=== PATIENT | female | born 1955 | race Caucasian/White ===

== ENCOUNTER 2024-08-31 22:16 | Emergency (ER) | payer MEDICARE, SELFPAY ==
[2024-08-31 22:25] VITALS: BP 189/139; PULSE 107; TEMP 36.6; BMI 26.6
--- NOTE | 2024-08-31 22:42 | ED.EXTPRO1 ---
HPI - Extremity Problem General Chief complaint: Extremity Problem, Nontraumatic Stated complaint: HIP PAIN/NUMBNESS Time Seen by Provider: 08/31/24 22:38 Source: patient Mode of arrival: Wheelchair Limitations: no limitations History of Present Illness HPI Narrative: states she was standing tonight at the parade for over an hour and now has pain of her right hip. pain extends down to her foot and her foot is numb. No weakness of her leg. Denies back pain. No fever or injury Related Data Allergies Allergy/AdvReac Type Severity Reaction Status Date / Time No Known Drug Allergies Allergy Verified 08/31/24 22:25 Review of Systems ROS Status of ROS 10 or more systems reviewed and unremarkable except as noted in history and below PFSH PFSH Social History Little interest or pleasure in doing things: not at all Feeling down, depressed, or hopeless: not at all Exam Constitutional Vital Signs, click to edit/add: Last Vital Signs Temp 97.8 F 08/31/24 22:25 Pulse 107 H 08/31/24 22:25 Resp 18 08/31/24 22:25 BP 148/96 H 08/31/24 22:44 O2 Del Method Room Air 08/31/24 22:25 Common normals: no apparent distress, average body habitus, oriented x3, no limitations, healthy appearing, alert and well nourished [facility] Common normals: normocephalic and head/scalp atraumatic Eye Common normals: PERRL, EOMs intact bilaterally and conjunctivae normal Respiratory Common normals: normal respiratory effort, no retractions, no use of accessory muscles and clear to auscultation bilaterally Cardio Common normals: regular rate, regular rhythm, S1 normal heart sound and S2 normal heart sound Extremity Common normals: normal to inspection and full ROM Neuro Common normals: oriented x3, CN's II-XII intact bilaterally and moves all extremities Psych Appearance: grossly normal Course Vital Signs Vital signs: Vital Signs Temperature 97.8 F 08/31/24 22:25 Pulse Rate 107 H 08/31/24 22:25 Respiratory Rate 18 08/31/24 22:25 Blood Pressure 189/139 H 08/31/24 22:25 Oxygen Delivery Method Room Air 08/31/24 22:25 Temperature 97.8 F 08/31/24 22:25 Pulse Rate 107 H 08/31/24 22:25 Respiratory Rate 18 08/31/24 22:25 Blood Pressure 148/96 H 08/31/24 22:44 Oxygen Delivery Method Room Air 08/31/24 22:25 MDM - Extremity (Nontraumatic) MDM Narrative Medical decision making narrative: patient presents complaining of pain radiating from her hip down her right leg and numbness of the foot. No weakness. States started after standing at a parade for over an hour. Exam neg. No tenderness. basic labs with mild anemia, mild renal insufficiency and mildly elevated RBS. Patient treated with solumedrol and magnesium and is feeling better. Xray of the hip with mild DJD patient discharged home with prednisone prescription and working diagnosis of sciatica Lab Data Labs: Lab Results 08/31/24 Range/Units 22:55 WBC 10.6 (4.0-11.0) 10^3/uL RBC 5.29 (4.20-5.40) 10^6/uL Hgb 10.4 L (12.0-16.0) g/dL Hct 33.4 L (36.0-48.0) % MCV 63.1 L (81.0-99.0) fL MCH 19.7 L (26.7-34.0) pg MCHC 31.1 (29.9-35.2) g/dL RDW 16.1 H (11.0-15.0) % Plt Count 319 (150-450) 10^3/uL MPV 10.1 (9.5-13.5) fL Neut % (Auto) 78.3 H (43.0-75.0) % Lymph % (Auto) 15.6 L (20.5-60.0) % [place] % (Auto) 4.9 (1.7-12.0) % Eos % (Auto) 0.2 L (0.9-7.0) % Baso % (Auto) 0.5 (0.2-2.0) % Neut # (Auto) 8.3 H (1.4-6.5) 10^3/uL Lymph # (Auto) 1.7 (1.2-3.8) 10^3/uL [place] # (Auto) 0.5 (0.3-0.8) 10^3/uL Eos # (Auto) 0.0 (0.0-0.7) 10^3/uL Baso # (Auto) 0.1 (0.0-0.1) 10^3/uL Abs Immat Gran (auto) 0.05 H (0.00-0.03) 10^3/uL Imm/Tot Granulo (auto) 0.5 (0.0-0.5) % Sodium 136 (136-145) mmol/L Potassium 3.9 (3.5-5.1) mmol/L Chloride 102 (98-107) mmol/L Carbon Dioxide 19.1 L (21.0-32.0) mmol/L Anion Gap 18.8 BUN 18.0 (7.0-18.0) mg/dL Creatinine 1.43 H (0.55-1.02) mg/dL Est GFR ( Amer) 44 L (>=60 mL/min/1.73m^2) Est GFR (Non-Af Amer) 37 L (>=60 mL/min/1.73m^2) BUN/Creatinine Ratio 12.6 Glucose 133 H (74-106) mg/dL Calcium 9.0 (8.5-10.1) mg/dL Discharge Plan Discharge Chief Complaint: Extremity Problem, Nontraumatic Clinical Impression: Right sciatic nerve pain Patient Disposition: Home, Self-Care Print Language: Urdu Instructions: Sciatica (ED) Additional Instructions: follow up with Dr Bowman next week for recheck Referrals: Janes Bowman MD [Primary Care Provider] - 1 week
[2024-08-31 22:44] VITALS: BP 148/96
--- NOTE | 2024-08-31 22:44 | XR_ITS ---
The [address] [address] Patient Name: BHAVYA COCHRAN MRN: [id number] date: 1955 Sex: F Assigned Patient Location: ER Current Patient Location: ER Accession/Order Number: [id number] Exam Date: 08/31/2024 22:55 Report Date: 09/01/2024 02:03 At the request of: ANNE-MARIE CORDERO Procedure: XR hip RT 2V w/ pelvis XR hip RT 2V w/ pelvis: HISTORY: right hip pain right hip pain COMPARISON: None available. TECHNIQUE: 3 right hip/bony pelvis views are submitted. FINDINGS: BONES/JOINT SPACES: There is no acute fracture or dislocation. Mild degenerative osteoarthritis is present in the hip joints. The contour of each femoral head is well-maintained. Pelvic ring structures are preserved. SOFT TISSUES: The soft tissues are unremarkable. XR/XR hip RT 2V w/ pelvis IMPRESSION: Mild degenerative osteoarthritis in both hip joints. Unremarkable plain film examination otherwise. Electronically authenticated by: CODIE LOPEZ Date: 09/01/2024 02:03
[2024-08-31 23:02] LABS: Basophils Absolute Auto 0.1 10^3/uL (0.0-0.1); Basophils Percent Auto 0.5 % (0.2-2.0); Eosinophils Percent Auto 0.2 % (0.9-7.0); Hematocrit 33.4 % (36.0-48.0); Hemoglobin 10.4 g/dL (12.0-16.0); Immature Granulocytes Abs Auto 0.05 10^3/uL (0.00-0.03); Immature Granulocytes Pct Auto 0.5 % (0.0-0.5); Lymphocytes Absolute Auto 1.7 10^3/uL (1.2-3.8); Lymphocytes Percent Auto 15.6 % (20.5-60.0); Mean Corpuscular HGB Conc 31.1 g/dL (29.9-35.2); Mean Corpuscular Hemoglobin 19.7 pg (26.7-34.0); Mean Corpuscular Volume 63.1 fL (81.0-99.0); Mean Platelet Volume 10.1 fL (9.5-13.5); Monocytes Absolute Auto 0.5 10^3/uL (0.3-0.8); Monocytes Percent Auto 4.9 % (1.7-12.0); Neutrophils Absolute Auto 8.3 10^3/uL (1.4-6.5); Neutrophils Percent Auto 78.3 % (43.0-75.0); Platelet Count 319 10^3/uL (150-450); Red Cell Distribution Width 16.1 % (11.0-15.0); White Blood Count 10.6 10^3/uL (4.0-11.0)
[2024-08-31 23:08] LABS: Anion Gap 18.8; BUN Creatinine Ratio 12.6; Carbon Dioxide 19.1 mmol/L (21.0-32.0); Chloride 102 mmol/L (98-107); Estimated GFR (African America 44 (>=60 mL/min/1.73m^2); Estimated GFR (Non-African Ame 37 (>=60 mL/min/1.73m^2); Glucose 133 mg/dL (74-106); Potassium 3.9 mmol/L (3.5-5.1); Sodium 136 mmol/L (136-145)
[2024-08-31] MEDS: METHYLPREDNISOLONE SOD SUCC PF 125 MG/2 ML VIAL IVP (23:11)
[2024-08-31] MEDS: MAGNESIUM SULFATE IN WATER 2 GM/50 ML PREMIX IV (23:11)
[2024-08-31 23:16] LABS: Red Blood Count 5.29 10^6/uL (4.20-5.40)
[2024-09-01 02:26] VITALS: BP 139/96; PULSE 90; O2SAT 97
== END 2024-09-01 02:28 | disposition home or self-care (01) ==
PROVIDERS: Emergency Provider Internal Medicine; PCP Family Medicine
DX: M54.31 Sciatica, right side (principal); M16.0 Bilateral primary osteoarthritis of hip
CPT/HCPCS: 36415; 73502; 80048; 85025; 96365; 96375; 99284; J2919; J3475

== ENCOUNTER 2024-10-07 17:15 | Outpatient (OUT) | payer MEDICARE, SELFPAY ==
--- OUTSIDE RECORDS SUMMARY | 2024-10-07 17:19 | XMS_ITS | CCD ---
Author Organization [facility] Care Team Providers Care Social Work Supervisor Name Role Phone PHYSICIAN, DEFAULT Unavailable Unavailable PHYSICIAN, DEFAULT Unavailable Unavailable Evonne Seo Unavailable TED CASTREJON Admitting Unavailable TED CASTREJON Attending Unavailable MARTI, DR HCEUNG Primary Care Unavailable TED CASTREJON Consulting Unavailable MARTI, DR CHEUNG Admitting Unavailable MARTI, DR CHEUNG Attending Unavailable DR SKYE BOWMAN Primary Care Unavailable DR SKYE BOWMAN Consulting Unavailable Skye Bowman MD Primary Care Provider [phone] Medications Current Medications Medication Drug Class(es) Dates Sig (Normalized) Sig (Original) cilostazol 100 mg oral tablet (3 sources) Phosphodiesterase 3 Inhibitor Start: 07-08-2024 take 100 mg by mouth once Cilostazol Active 100 MG PO Once July 08, 2024 12:00am Start: 11-04-2023 take 1 tablet by jose twice daily cilostazoL (PLETAL) 100 mg tablet Indications: PVD (peripheral vascular disease) ([facility]) , Claudication ([facility]) , Bilateral carotid bruits take 1 tablet by mouth twice a day 180 tablet 1 11/04/2023 Active Start: 04-25-2023 End: 11-04-2023 take 1 tablet by mouth twice daily cilostazoL (PLETAL) 100 mg tablet Indications: PVD (peripheral vascular disease) (CMS-HCC) , Claudication (CMS-HCC) , Bilateral carotid bruits take 1 tablet by mouth twice a day 180 tablet 1 04/25/2023 11/04/2023 Discontinued cloNIDine hydrochloride 0.1 mg oral tablet (1 source) Central alpha-2 Adrenergic Agonist Start: 07-08-2024 take 0.1 mg by mouth once daily Clonidine Hcl Active 0.1 MG PO Daily July 08, 2024 12:00am lisinopril 10 mg oral tablet (1 source) Angiotensin Converting Enzyme Inhibitor Start: 07-08-2024 take 10 mg by mouth once daily Lisinopril Active 10 MG PO Daily July 08, 2024 12:00am predniSONE 50 mg oral tablet (1 source) Start: 07-08-2024 take 50 mg by mouth once daily Prednisone Active 50 MG PO Daily 5 5 July 08, 2024 12:00am Problems Active Problems Problem Classification Problem Date Documented Da te Episodic/Chronic Allergic reactions (1 source) Unspecified contact dermatitis, unspecified cause; Translations: [Contact dermatitis and other eczema, unspecified cause] 07-08-2024 Episodic Deficiency and other anemia (1 source) Heterozygous thalassemia; 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-08-2024 Chronic Essential hypertension (1 source) Hypertensive disorder; Translations: [Essential (primary) hypertension] 07-08-2024 Chronic Other circulatory disease (1 source) Carotid bruit; Translations: [Other specified symptoms and signs involving the circulatory and respiratory systems] 11-04-2023 Episodic Other connective tissue disease (4 sources) Pain in right lower leg; Translations: [PAIN IN RIGHT LOWER LEG] Onset: 06-27-2022 Episodic Other connective tissue disease (1 source) Pain in left lower leg; Translations: [PAIN IN LEFT LOWER LEG] Onset: 06-29-2022 Episodic Peripheral and visceral atherosclerosis (2 sources) Peripheral vascular disease; Translations: [Peripheral vascular disease, unspecified] 11-04-2023 Chronic Past or Other Problems Problem Classification Problem Date Documented Da te Episodic/Chronic Immunizations and screening for infectious disease (1 source) Contact with and (suspected) exposure to other viral communicable diseases Onset: 09-07-2021 Resolved: 09-07-2021 Episodic Viral infection (1 source) COVID-19 Onset: 09-07-2021 Resolved: 09-07-2021 Results Test Name Value Interpretation Reference Range Facil ity INSULINon 07-16-2022 Insulin 14.3 uIU/mL Normal 2.6-24.9 [facility] Comment on above: Performed By: #### I NSULIN #### [facility] [address] [place] [address] Dr. Lemuel Serrato CBC AUTO DIFFon 07-15-2022 BASO # 0.0 103/ul Normal 0.0-0.1 [facility] Comment on above: Performed By: #### C BC #### [facility] [address] [address] [address] Lemuel Serrato Basophils/100 WBC (Bld) 0.4 % Normal 0.2-2.0 [facility] Comment on above: Performed By: #### C BC #### [facility] [address] [address] [address] Lemuel Serrato EO # 0.2 103/ul Normal 0.0-0.7 [facility] Comment on above: Performed By: #### C BC #### [facility] [address] [address] [address] Lemuel Serrato Eosinophils/100 WBC (Bld) 2.7 % Normal 0.9-7.0 [facility] Comment on above: Performed By: #### C BC #### [facility] [address] [place] [address] Dr. Lemuel Serrato Erythrocyte distribution width (RBC) [Ratio] 15.9 % Critically high 11.0-15.0 [facility] Comment on above: Performed By: #### C BC #### [facility] [address] [place] [address] Dr. Lemuel Serrato Hematocrit (Bld) [Volume fraction] 30.5 % Critically low 36.0-48.0 [facility] Comment on above: Performed By: #### C BC #### [facility] [address] [place] [address] Dr. Lemuel Serrato Hemoglobin (Bld) [Mass/Vol] 9.0 g/dL Critically low 12.0-16.0 [facility] Comment on above: Performed By: #### C BC #### [facility] [address] [place] [address] Dr. Lemuel Serrato IG # 0.03 10e3/ul Normal 0.00-0.03 [facility] Comment on above: Performed By: #### C BC #### [facility] [address] [address] [address] Lemuel Serrato IG % 0.4 % Normal 0.0-0.5 [facility] Comment on above: Performed By: #### C BC #### [facility] [address] [address] [address] Lemuel Serrato LYMPH # 3.1 103/ul Normal 1.2-3.8 [facility] Comment on above: Performed By: #### C BC #### [facility] [address] [place] [address] Dr. Lemuel Serrato Lymphocytes/100 WBC (Bld) 41.8 % Normal 20.5-60.0 [facility] Comment on above: Performed By: #### C BC #### [facility] [address] [place] [address] Dr. Lemuel Serrato MANUAL DIFF REQ NO Normal [facility] Comment on above: Performed By: #### C BC #### [facility] [address] [place] [address] Dr. Lemuel Serrato MCH (RBC) [Entitic mass] 18.9 pg Critically low 26.7-34.0 [facility] Comment on above: Performed By: #### C BC #### [facility] [address] [place] [address] Dr. Lemuel Serrato MCHC (RBC) [Mass/Vol] 29.5 g/dL Critically low 29.9-35.2 [facility] Comment on above: Performed By: #### C BC #### [facility] [address] [place] [address] Dr. Lemuel Serrato MCV (RBC) [Entitic vol] 64.2 fL Critically low 81.0-99.0 [facility] Comment on above: Performed By: #### C BC #### [facility] [address] [place] [address] Dr. Lemuel Serrato MONO # 0.7 103/ul Normal 0.3-0.8 [facility] Comment on above: Performed By: #### C BC #### [facility] [address] [place] [address] Dr. Lemuel Serrato Monocytes/100 WBC (Bld) 8.8 % Normal 1.7-12.0 [facility] Comment on above: Performed By: #### C BC #### [facility] [address] [place] [address] Dr. Lemuel Serrato NEUT # 3.4 103/ul Normal 1.4-6.5 [facility] Comment on above: Performed By: #### C BC #### [facility] [address] [address] [address] Lemuel Serrato Neutrophils/100 WBC (Bld) 45.9 % Normal 43.0-75.0 [facility] Comment on above: Performed By: #### C BC #### [facility] [address] [place] [address] Dr. Lemuel Serrato Platelet mean volume (Bld) [Entitic vol] 9.8 fL Normal 9.5-13.5 [facility] Comment on above: Performed By: #### C BC #### [facility] [address] [place] [address] Dr. Lemuel Serrato PLT 263 103/ul Normal 150-450 [facility] Comment on above: Performed By: #### C BC #### [facility] [address] [place] [address] Dr. Lemuel Serrato RBC 4.75 106/ul Normal 4.20-5.40 [facility] Comment on above: Result Comment: SLIG HT MICROCYTOSIS 1+ POIKILOCYTOSIS 1+ OVALOCYTE SLIGHT ACANTHOCYTE Performed By: #### C BC #### [facility] [address] [place] [address] Dr. Lemuel Serrato WBC 7.4 103/ul Normal 4.0-11.0 [facility] Comment on above: Performed By: #### C BC #### [facility] [address] [place] [address] Dr. Lemuel Serrato FREE THYROXINE INDEX T7on FTI 2.15 Normal 1.30-4.50 [facility] Comment on above: Performed By: #### T 7, LIPID, TSH, CMP #### [facility] [address] [place] [address] Dr. Lemuel Serrato T3U 33.0 % Normal 30.0-39.0 [facility] Comment on above: Performed By: #### T 7, LIPID, TSH, CMP #### [facility] [address] [address] [address] Lemuel Serrato T4 [Mass/Vol] 6.50 ug/dL Normal 4.80-13.[address] [facility] Comment on above: Performed By: #### T 7, LIPID, TSH, CMP #### [facility] [address] [address] [address] Lemuel Serrato GLYCOHEMOGLOBIN A1Con 2021 ADA RECOMMENDATION SEE BELOW Normal [facility] Comment on above: Result Comment: ADA RECOMMENDED LIMIT 4.0 - 6.0 ADA THERAPEUTIC TARGET < 7.0 ACTION SUGGESTED > 7.0 Performed By: #### A 1C #### [facility] [address] [place] [address] Dr. Lemuel Serrato Glucose [Mass/Vol] 137 mg/dL Normal [facility] Comment on above: Performed By: #### A 1C #### [facility] [address] [address] [address] Lemuel Serrato HbA1c (Bld) [Mass fraction] 6.4 % Critically high 4.5-6.2 [facility] Comment on above: Performed By: #### A 1C #### [facility] [address] [place] [address] Dr. Lemuel Serrato IRONon 07-15-2022 Iron [Mass/Vol] 70.0 ug/dL Normal 50.0-170.0 [facility] Comment on above: Performed By: #### I MARAL #### [facility] [address] [address] [address] Lemuel Serrato LIPID PROFILEon 07-15-2022 CHOL-HDL RATIO NORM SEE BELOW Normal [facility] Comment on above: Result Comment: 3.3 - 4.4 LOW RISK 4.4 - 7.1 AVERAGE RISK 7.1 - 11.0 MODERATE RISK >11.0 HIGH RISK Performed By: #### T 7, LIPID, TSH, CMP #### [facility] [address] [place] [address] Dr. Lemuel Serrato Cholesterol [Mass/Vol] 152 mg/dL Normal <=200 [facility] Comment on above: Performed By: #### T 7, LIPID, TSH, CMP #### [facility] [address] [address] [address] Lemuel Serrato Cholesterol in HDL [Mass/Vol] 32 mg/dL Critically low 40-60 [facility] Comment on above: Performed By: #### T 7, LIPID, TSH, CMP #### [facility] [address] [address] [address] Lemuel Serrato Cholesterol in LDL [Mass/Vol] 96.8 mg/dL Normal [facility] Comment on above: Performed By: #### T 7, LIPID, TSH, CMP #### [facility] [address] [address] [address] Lmeuel Serrato Cholesterol.total/Cho lesterol in HDL [Mass ratio] 4.8 {ratio} Normal [facility] Comment on above: Performed By: #### T 7, LIPID, TSH, CMP #### [facility] [address] [address] [address] Lemuel Serrato HDL NORMAL > or = 60 mg/dl - LOW CARDIOVASCULAR RISK <40 mg/dl - HIGH CARDIOVASCULAR RISK Normal [facility] Comment on above: Performed By: #### T 7, LIPID, TSH, CMP #### [facility] [address] [address] [address] Lemuel Serrato LDL CALC NORMAL SEE BELOW Normal [facility] Comment on above: Result Comment: <100 mg/dl OPTIMAL 100 - 129 mg/dl NEAR OR ABOVE OPTIMAL 130 - 159 mg/dl BORDERLINE HIGH 160 - 189 mg/dl HIGH >190 mg/dl VERY HIGH Performed By: #### T 7, LIPID, TSH, CMP #### [facility] [address] [address] [address] Lemuel Serrato Triglyceride [Mass/Vol] 116 mg/dL Normal <=150 [facility] Comment on above: Performed By: #### T 7, LIPID, TSH, CMP #### [facility] [address] [address] [address] Lemuel Serrato VLDL CALC 23.2 mg/dL Normal [facility] Comment on above: Performed By: #### T 7, LIPID, TSH, CMP #### [facility] [address] [place] [address] Dr. Lemuel Serrato PROF 14(COMP METB)on 022 Albumin [Mass/Vol] 3.5 g/dL Normal 3.4-5.0 [facility] Comment on above: Performed By: #### T 7, LIPID, TSH, CMP #### [facility] [address] [place] [address] Dr. Lemuel Serrato Albumin/Globulin [Mass ratio] 0.9 {ratio} Normal [facility] Comment on above: Performed By: #### T 7, LIPID, TSH, CMP #### [facility] [address] [place] [address] Dr. Lemuel Serrato ALP [Catalytic activity/Vol] 91 U/L Normal 46-116 [facility] Comment on above: Performed By: #### T 7, LIPID, TSH, CMP #### [facility] [address] [place] [address] Dr. Lemuel Serrato ALT [Catalytic activity/Vol] 21 U/L Normal 14-59 [facility] Comment on above: Performed By: #### T 7, LIPID, TSH, CMP #### [facility] [address] [place] [address] Dr. Lemuel Serrato Anion gap [Moles/Vol] 10.1 mmol/L Normal [facility] Comment on above: Performed By: #### T 7, LIPID, TSH, CMP #### [facility] [address] [place] [address] Dr. Lemuel Serrato AST [Catalytic activity/Vol] 10 U/L Critically low 15-37 [facility] Comment on above: Performed By: #### T 7, LIPID, TSH, CMP #### [facility] [address] [place] [address] Dr. Lemuel Serrato Bilirubin [Mass/Vol] 0.3 mg/dL Normal 0.2-1.0 [facility] Comment on above: Performed By: #### T 7, LIPID, TSH, CMP #### [facility] [address] [address] [address] Lemuel Serrato Calcium [Mass/Vol] 8.6 mg/dL Normal 8.5-10.1 [facility] Comment on above: Performed By: #### T 7, LIPID, TSH, CMP #### [facility] [address] [place] [address] Dr. Lemuel Serrato Chloride [Moles/Vol] 107 mmol/L Normal 98-107 [facility] Comment on above: Performed By: #### T 7, LIPID, TSH, CMP #### [facility] [address] [place] [address] Dr. Lemuel Serrato CO2 [Moles/Vol] 25.8 mmol/L Normal 21.0-32.0 [facility] Comment on above: Performed By: #### T 7, LIPID, TSH, CMP #### [facility] [address] [place] [address] Dr. Lemuel Serrato Creatinine [Mass/Vol] 1.20 mg/dL Critically high 0.55-1.02 [facility] Comment on above: Performed By: #### T 7, LIPID, TSH, CMP #### [facility] [address] [place] [address] Dr. Lemuel Serrato EGFR-AF ALGERIAN 55 mL/min/1.73m2 Critically low >=60 [facility] Comment on above: Performed By: #### T 7, LIPID, TSH, CMP #### [facility] [address] [place] [address] Dr. Lemuel Serrato EGFR-NON AF ALGERIAN 45 mL/min/1.73m2 Critically low >=60 [facility] Comment on above: Performed By: #### T 7, LIPID, TSH, CMP #### [facility] [address] [place] [address] Dr. Lemuel Serrato Globulin (S) [Mass/Vol] 3.9 g/dL Normal [facility] Comment on above: Performed By: #### T 7, LIPID, TSH, CMP #### [facility] [address] [place] [address] Dr. Lemuel Serrato Glucose [Mass/Vol] 96 mg/dL Normal 74-106 [facility] Comment on above: Performed By: #### T 7, LIPID, TSH, CMP #### [facility] [address] [place] [address] Dr. Lemuel Serrato Potassium [Moles/Vol] 3.9 mmol/L Normal 3.5-5.1 [facility] Comment on above: Performed By: #### T 7, LIPID, TSH, CMP #### [facility] [address] [place] [address] Dr. Lemuel Serrato Protein [Mass/Vol] 7.4 g/dL Normal 6.4-8.2 [facility] Comment on above: Performed By: #### T 7, LIPID, TSH, CMP #### [facility] [address] [place] [address] Dr. Lemuel Serrato Sodium [Moles/Vol] 139 mmol/L Normal 136-145 [facility] Comment on above: Performed By: #### T 7, LIPID, TSH, CMP #### [facility] [address] [place] [address] Dr. Lemuel Serrato Urea nitrogen [Mass/Vol] 23.0 mg/dL Critically high 7.0-18.0 [facility] Comment on above: Performed By: #### T 7, LIPID, TSH, CMP #### [facility] [address] [place] [address] Dr. Lemuel Serrato Urea nitrogen/Creatinine [Mass ratio] 19.2 mg/mg Normal [facility] Comment on above: Performed By: #### T 7, LIPID, TSH, CMP #### [facility] [address] [place] [address] Dr. Lemuel Serrato TSHon 07-15-2022 TSH 2.220 uIU/mL Normal 0.358-3.740 [facility] Comment on above: Performed By: #### T 7, LIPID, TSH, CMP #### [facility] [address] [place] [address] Dr. Lemuel Serrato Vital Signs Date Time Vital Sign Value Performing Clinician Facility 07-08-2024 13:21-0400 Body height 165.1 cm [facility] 07-08-2024 13:21-0400 Body mass index (BMI) [Ratio] 26.1 kg/m2 [facility] 07-08-2024 13:21-0400 Body temperature 97.8 [degF] [facility] 07-08-2024 13:21-0400 Body weight 71.21 kg [facility] 07-08-2024 13:21-0400 Diastolic blood pressure 86 mm[Hg] [facility] 07-08-2024 13:21-0400 Heart rate 98 /min [facility] 07-08-2024 13:21-0400 Respiratory rate 18 /min [facility] 07-08-2024 13:21-0400 SaO2% (BldA) [Mass fraction] 97 % [facility] 07-08-2024 13:21-0400 Systolic blood pressure 163 mm[Hg] [facility] 09-07-2021 15:00-0500 Body height 165.1 cm Evonne Ginty Other [facility] [employer] Other 09-07-2021 15:00-0500 Body mass index (BMI) [Ratio] 26.62 kg/m2 Evonne Ginty Other [email or web address] Other 09-07-2021 15:00-0500 Body temperature 100.6 [degF] Evonne Ginty Other [email or web address] Other 09-07-2021 15:00-0500 Body weight 72.58 kg Evonne Ginty Other [email or web address] Other 09-07-2021 15:00-0500 SaO2% (BldA) [Mass fraction] 96 % Evonne Ginty Other [email or web address] Other Encounters Encounter Date Encounter Type Care Provider Facility Start: 07-08-2024 End: 07-08-2024 ambulatory [facility] Work Phone: Start: 07-08-2024 End: 07-08-2024 Patient encounter procedure [facility] Work Phone: Start: 11-04-2023 Refill Indu Cash MD Work Phone: [facility] Comment on above: PVD (peripheral vasc ular disease) ([facility]); Claudication ([facility] Bilateral carotid bruits Start: 07-18-2022 Encounter for genera l adult medical examination without abnormal findings DR SKYE BOWMAN [facility] Start: 07-15-2022 End: 07-16-[address] SKYE BOWMAN Facility:[facility] Start: 07-15-2022 End: 07-16-2022 Encounter for general adult medical examination without abnormal findings DR SKYE BOWMAN Facility:[facility] Start: 06-27-2022 End: 06-28-2022 ambulatory TED CASTREJON Facility:[facility] Start: 09-07-2021 End: 09-07-2021 ambulatory Evonne Seo Other [email or web address] Other Start: 09-07-2021 Office outpatient vi sit 15 minutes Evonne Seo [facility] Start: 11-23-2017 End: 11-24-2017 Ambulatory DEFAULT PHYSICIAN Facility:[facility] Plan of Treatment Date Care Activity Detail Author Start: 07-22-2023 Tobacco Screening Tobacco Screening [facility] Start: 06-09-2023 Influenza vaccination Influenza Vaccine [facility] Start: 2022 Fall Risk Screening Fall Risk Screening [facility] Start: 12-29-2021 DTaP,Tdap and Td Vaccines (2 - Td or Tdap) DTaP,Tdap and Td Vaccines (2 - Td or Tdap) [facility] Start: 2007 Administration of varicella zoster vaccine Zoster (Shingles) Vaccine (1 of 2) [facility] Start: 1975 Adult BMI Screening Adult BMI Screening [facility] Start: 1969 Depression Screening Depression Screening [facility] Payers Date Payer Category Payer Unknown [id number] 1955 Unknown [id number] 1955 Unknown [id number] Medicare Medicare [id number] Unknown Social History Date Type Detail Facility Start: 03-20-2019 End: 07-22-2022 Sex Assigned At [facility] Other Start: 07-22-2022 Tobacco smoking stat [facility] Smokes tobacco daily [facility] History of tobacco use Cigarette Smoker P [facility] Start: 07-22-2022 Tobacco use and exposure Smokeless tobacco non-user [facility] Start: 07-22-2022 Alcohol intake [facility] Start: 03-20-2019 End: 07-22-2022 History of Social function [facility] Childcare Unknown [facility] Start: 1955 Sex Assigned At Not on file P [facility] Start: 07-08-2024 Tobacco smoking stat [facility] Smoker (finding) [facility] Start: 1955 Sex Assigned At Female F [facility] Evaluation note 09-07-2021 Note Date & Type Note Facility 09-07-2021 Evaluation note Encounter Date Diagnosis Assessment Notes Aug, Contact with and (suspected) exposure to other viral communicable diseases (ICD-10 - Z20.828) Aug, COVID-19 (ICD-10 - U07.1) Rapid COVID test performed in office today. Advised patient that test was positive. Instructed patient to isolate per CDC guidelines for 10 days from symptom onset. May return to work/activities outside home after isolation period as long as symptoms are improving and has been afebrile for 24 hours without use of antipyretic. Advised patient that health dept. will be in contact as results are reported to them. Advised patient that treatment of COVID is with viral supportive care, OTC cold medications as directed, Tylenol/Motrin as needed for body aches/fever. Increase fluids and rest. Encouraged use of cool mist humidifier. Follow-up with PCP to advise of positive result and further management need. Immediate eval for SOB, difficulty, chest pain, fevers that do not break with antipyretic or any other concerning symptoms as reviewed on patient education handout. Patient verbalizes understanding and is agreeable to treatment plan. Patient left in stable condition Aug, Other Additional time spent conducting pre-visit phone call, screening for symptoms, instructions on social distancing, application and removal of PPE, and cleaning of examination room, equipment and supplies was preformed. Patient education given for testing methodology and results. Patient care instructions given in writting by [facility] Care At Home document [email or web address] Other Evaluation note Note Date & Type Note Facility Evaluation note Diagnosis [place]peripheral vascular disease) [place] Unspecified peripheral vascular disease Claudication [place] Unspecified peripheral vascular disease Bilateral carotid bruits documented in this encounter [facility] Evaluation note Note Date & Type Note Facility Evaluation note Diagnosis Onset Date Contact dermatitis noneactiv e [facility] Work Phone: History general Narrative - Reported Note Date & Type Note Facility History general Narrative - Reported Type Medical History thalassemia minor [email or web address] Other Instructions Note Date & Type Note Facility Instructions Not on filedocumented in this en counter [facility] Summary Purpose Family History No Family History Records FoundNo Family History Records Found Advance Directives Advance Directive Response Recorded Date/ Time Advance Directives No June 1:13pm Chief Complaint and Reason for Visit Chief Complaint swelling/itching carrie und eyes Reason for Visit Contact dermatitis Additional Source Comments INFORMATION SOURCE (unrecogn ized section and content) DATE CREATED AUTHOR 03/30/2018 [facility] DATE CREATED AUTHOR AUTHOR'S ORGANIZ ATION 07/18/2022 [facility] REASON FOR VISIT (unrecogniz ed section and content) Reason Comments Med Refill Care Teams (unrecognized sec tion and content) Social Work Supervisor Relationship Specialty Start Date End Date Skye Bowman MD [address] [place] [address] PCP - General Family Medicine 06/30/22 Team Status: Active Member Role Status Jorge Bowman MD Primary Care Provider Active Team Status: Inactive Member Role Status Jorge Bowman MD Primary Care Provider Active Start: July 08, 2024 End: July 08, 2024 Tsering Pineda APRN Attending Provider Active S tart: July 08, 2024 End: July 08, 2024 Goals (unrecognized section and content) Goals may be documented in a n alternate section FOR RECORDS PERTAINING TO PATIENTS WHO ARE OR HAVE BEEN ENROLLED IN A CHEMICAL DEPENDENCY/SUBSTANCEABUSE PROGRAM, SOME INFORMATION MAY BE OMITTED. This clinical summary was aggregated from multiple sources. Caution should be exercised in using it in the provision of clinical care. This summary normalizes information from multiple sources, and as a consequence, information in this document may materially change the coding, format and clinical context of patient data. In addition, data may be omitted in some cases. CLINICAL DECISIONS SHOULD BE BASED ON THE PRIMARY CLINICAL RECORDS. [facility] [employer] [facility]. provides no warranty or guarantee of the accuracy or completeness of information in this document.
--- NOTE | 2024-10-07 17:41 | XR_ITS ---
The [place] [id number] Patient Name: BHAVYA COCHRAN MRN: [id number] date: 1955 Sex: F Assigned Patient Location: [facility] Current Patient Location: Accession/Order Number: [id number] Exam Date: 10/07/2024 17:32 Report Date: 10/08/2024 07:51 At the request of: SKYE KIDD Procedure: XR lumbar spine min 4V EXAMINATION: XR lumbar spine min 4V HISTORY: Lumbar radiculopathy, M54.16 COMPARISON: No relevant comparison available. FINDINGS: BONES: Normal alignment with no acute fracture or spondylolisthesis. Moderate spondylosis and facet osteoarthropathy DISC SPACES: Moderate narrowing L5-S1 with endplate sclerosis PARASPINOUS: Negative. No paraspinous abnormality is seen. OTHER: Extensive vascular calcifications XR/XR lumbar spine min 4V IMPRESSION: Moderate degenerative changes Electronically authenticated by: FARIBA WOLF Date: 10/08/2024 07:51
== END 2024-10-07 17:16 | disposition home or self-care (01) ==
PROVIDERS: PCP Family Medicine; Visit Provider Family Medicine
DX: M54.16 Radiculopathy, lumbar region (principal); M51.369 Other intervertebral disc degeneration, lumbar region without mention of lumbar back pain or lower extremity pain
CPT/HCPCS: 72110

== ENCOUNTER 2024-10-14 12:25 | Outpatient (OUT) | payer MEDICARE, SELFPAY ==
--- NOTE | 2024-10-14 12:27 | MR_ITS ---
The [address] [address] Patient Name: BHAVYA COCHRAN MRN: [id number] date: 1955 Sex: F Assigned Patient Location: MRI Current Patient Location: MRI Accession/Order Number: [id number] Exam Date: 10/14/2024 12:50 Report Date: 10/14/2024 14:04 At the request of: SKYE KIDD Procedure: MR lumbar spine wo con EXAM: MR lumbar spine wo con HISTORY: Lumbar radiculopathy. COMPARISON: 10/07/2024 TECHNIQUE: MRI images obtained with multiple sequences. MRI of the lumbar spine without contrast. Sequences obtained by standard department protocol. FINDINGS: The conus ends at L1-L2. No abnormal signal of the terminal spinal cord. T11-T12 through L1-L2: No spinal canal stenosis or neural foraminal stenosis. L2-L3: Mild disc degeneration. No spinal canal stenosis. No neural foraminal stenosis. Facet joints are normal. L3-L4: Mild disc degeneration. Lateral recess narrowing in position to irritate the traversing bilateral L4 nerve roots. Mild facet joint arthropathy. L4-L5: Intervertebral disc degeneration. Central posterior disc extrusion, disc material extending posterior to the L4 vertebral body. Lateral recess narrowing in position to irritate the traversing bilateral L5 nerve roots. Mild facet joint arthropathy. Mild spinal canal narrowing. Mild left neural foraminal narrowing. Mild right neural foraminal narrowing. L5-S1: Moderate disc degeneration. Central posterior disc protrusion. No spinal canal stenosis. Moderate to severe right neural foraminal narrowing. Moderate to severe left neural foraminal narrowing. Mild facet joint arthropathy. No acute fractures. Vertebral body height is preserved. Mild degeneration of the sacroiliac joints. MR/MR lumbar spine wo con IMPRESSION: 1. Moderate to severe bilateral L5-S1 neural foraminal narrowing. 2. Lateral recess narrowing at L4-L5 in position to irritate the traversing bilateral L5 nerve roots. 3. Lateral recess narrowing at L3-L4 in position to irritate the traversing bilateral L4 nerve roots. 4. No acute fractures. 5. Other findings as described. Electronically authenticated by: DOMINGO LIU Date: 10/14/2024 14:04
== END 2024-10-14 12:26 | disposition home or self-care (01) ==
LOC: MRI 12:25
PROVIDERS: PCP Family Medicine; Visit Provider Family Medicine
DX: M54.16 Radiculopathy, lumbar region (principal); M51.369 Other intervertebral disc degeneration, lumbar region without mention of lumbar back pain or lower extremity pain
CPT/HCPCS: 72148

== ENCOUNTER 2024-10-15 12:30 | Outpatient (OUT) | payer MEDICARE, SELFPAY ==
--- NOTE | 2024-10-15 | CONS_ITS ---
CONSULTATION DATE: 10/15/2024 TO: Janes Bowman M.D. CHIEF COMPLAINT: Includes severe right leg pain. HISTORY OF PRESENT ILLNESS: Review of systems, past medical/surgical history were obtained and documented on the health questionnaire and is available upon request. She is a 69-year-old female, reports having a six month history of right leg pain; however, over the last six weeks it progressed to the point it alters her quality of life, level of functioning and sleep. She rates it an 8/10, burning/shooting in character, increased with activities such as prolonged standing, walking. She feels most comfortable in the semi-recumbent position. She denies any change in bowel and bladder habits and reports progressive tingling, numbness and weakness to the right lower extremity. She has been using nonsteroidal medication which includes most recently Aleve, among others, in the past. She takes two pills b.i.d. She has been using this for at least the last eight weeks. She has also undergone activity modification as well as chiropractic intervention. Despite this, her pain has been progressive, and her VANIA on today?s visit was 44%. EXAM: Notable for patient having 3/5 strength of her right anterior tibialis and quadriceps with depressed right patellar reflex, and straight leg raise was equivocally positive at 90 degrees. IMPRESSION: Our impression is patient with chronic pain secondary to neural spinal stenosis with neurogenic claudication with right L4 and L5 radiculopathy. RECOMMENDATIONS: I recommend she undergo a transforaminal injection on the right side at the L4-5 foramen and the L5-S1 foramen. I have placed her on Zonegran 50 mg pills, 1-2 at h.s. and I will have her initiate aquatic therapy. As part of providing excellent, safe, comprehensive care, the following was completed at our patient's visit: 1. A medication reconciliation and review to ensure accurate knowledge of current/active medications, including asking our patients to inform us about any [id number] medications or herbal remedies/nutritional supplements/alternative remedies. 2. A review to specifically ensure our patients have had annual screening for: elevated body mass index (BMI, see intake chart for exact total), tobacco use, screening for depression, and screening for unhealthy alcohol use. When screening is concerning, patients are provided with education and the specific recommendation to discuss the concerning health issue and treatment options with their primary care provider. CINTHYA
== END 2024-10-15 12:31 | disposition home or self-care (01) ==
LOC: PM 12:31
PROVIDERS: PCP Family Medicine; Visit Provider Anesthesiology Pain Medicine
DX: M48.062 Spinal stenosis, lumbar region with neurogenic claudication (principal); G89.4 Chronic pain syndrome
CPT/HCPCS: G0463

== ENCOUNTER 2024-10-18 11:00 | Outpatient (OUT) | payer MEDICARE, SELFPAY ==
--- NOTE | 2024-10-18 11:02 | VEIN_ITS ---
The [address] [address] Patient Name: BHAVYA COCHRAN MRN: [id number] date: 1955 Sex: F Assigned Patient Location: Current Patient Location: Accession/Order Number: [id number] Exam Date: 10/18/2024 11:02 Report Date: 10/18/2024 16:16 At the request of: SKYE KIDD Procedure: VC SEGMENTAL PRESSURES EXAM: VC SEGMENTAL PRESSURES. HISTORY: R09.8,9 vascular disease. COMPARISON: None. TECHNIQUE: Segmental pressure measurements and ABIs. FINDINGS: Right resting YESSY is 0.29. Left resting YESSY is 0.88. On the right there is a pressure gradient from the brachial cuff to the thigh cuff as well as a pressure gradient from the proximal thigh cuff to the distal thigh cuff. No flow could be demonstrated within the dorsalis pedis artery. On the left there is a mild gradient from the proximal calf cuff to the distal calf cuff. VEIN/VC SEGMENTAL PRESSURES IMPRESSION: 1. Right resting YESSY in the severe claudication range with probable iliac and superficial femoral artery disease. 2. Left resting YESSY in the mild claudication range with probable tibial vessel disease. Electronically authenticated by: Leonardo RODRIGUEZ Date: 10/18/2024 16:16
--- OUTSIDE RECORDS SUMMARY | 2024-10-18 11:19 | XMS_ITS | CCD ---
Author Organization [facility] Care Team Providers Care Unscrambler Name Role Phone PHYSICIAN, DEFAULT Unavailable Unavailable PHYSICIAN, DEFAULT Unavailable Unavailable Evonne Seo Unavailable TED CASTREJON Admitting Unavailable TED CASTREJON Attending Unavailable MARTI, DR CHEUNG Primary Care Unavailable TED CASTREJON Consulting Unavailable MARTI, DR CHEUNG Admitting Unavailable MARTI, DR CHEUNG Attending Unavailable DR SKYE BOWMAN Primary Care Unavailable DR SKYE BOWMAN Consulting Unavailable Skye Bowman MD Primary Care Provider [phone] Medications Current Medications Medication Drug Class(es) Dates Sig (Normalized) Sig (Original) cilostazol 100 mg oral tablet (3 sources) Phosphodiesterase 3 Inhibitor Start: 07-08-2024 take 100 mg by mouth once Cilostazol Active 100 MG PO Once July 08, 2024 12:00am Start: 11-04-2023 take 1 tablet by jose twice daily cilostazoL (PLETAL) 100 mg tablet Indications: PVD (peripheral vascular disease) ([facility]) , Claudication ([facility]) , Bilateral carotid bruits take 1 tablet [...] INSULINon 07-16-2022 Insulin 14.3 uIU/mL Normal 2.6-24.9 [facility] Comment on above: Performed By: #### I NSULIN #### [facility] [address] [place] [address] Dr. Lemuel Serrato CBC AUTO DIFFon 07-15-2022 BASO # 0.0 103/ul Normal 0.0-0.1 [facility] Comment on above: Performed By: #### C BC #### [facility] [address] [address] [address] Lemuel Serrato Basophils/100 WBC (Bld) 0.4 % Normal 0.2-2.0 [facility] Comment on above: Performed By: #### C BC #### [facility] [address] [address] [address] Lemuel Serrato EO # 0.2 103/ul Normal 0.0-0.7 [facility] Comment on above: Performed By: #### C BC #### [facility] [address] [address] [address] Lemuel Serrato Eosinophils/100 WBC (Bld) 2.7 % Normal 0.9-7.0 [facility] Comment on above: Performed By: #### C BC #### [facility] [address] [place] [address] Dr. Lemuel Serrato Erythrocyte distribution width (RBC) [Ratio] 15.9 % Critically high 11.0-15.0 [facility] Comment on above: Performed By: #### C BC #### [facility] [address] [place] [address] Dr. Lemuel Serrato Hematocrit (Bld) [Volume fraction] 30.5 % Critically low 36.0-48.0 [facility] Comment on above: Performed By: #### C BC #### [facility] [address] [place] [address] Dr. Lemuel Serrato Hemoglobin (Bld) [Mass/Vol] 9.0 g/dL Critically low 12.0-16.0 [facility] Comment on above: Performed By: #### C BC #### [facility] [address] [place] [address] Dr. Lemuel Serrato IG # 0.03 10e3/ul Normal 0.00-0.03 [facility] Comment on above: Performed By: #### C BC #### [facility] [address] [address] [address] Lemuel Serrato IG % 0.4 % Normal 0.0-0.5 [facility] Comment on above: Performed By: #### C BC #### [facility] [address] [address] [address] Lemuel Serrato LYMPH # 3.1 103/ul Normal 1.2-3.8 [facility] Comment on above: Performed By: #### C BC #### [facility] [address] [place] [address] Dr. Lemuel Serrato Lymphocytes/100 WBC (Bld) 41.8 % Normal 20.5-60.0 [facility] Comment on above: Performed By: #### C BC #### [facility] [address] [place] [address] Dr. Lemuel Serrato MANUAL DIFF REQ NO Normal [facility] Comment on above: Performed By: #### C BC #### [facility] [address] [place] [address] Dr. Lemuel Serrato MCH (RBC) [Entitic mass] 18.9 pg Critically low 26.7-34.0 [facility] Comment on above: Performed By: #### C BC #### [facility] [address] [place] [address] Dr. Lemuel Serrato MCHC (RBC) [Mass/Vol] 29.5 g/dL Critically low 29.9-35.2 [facility] Comment on above: Performed By: #### C BC #### [facility] [address] [place] [address] Dr. Lemuel Serrato MCV (RBC) [Entitic vol] 64.2 fL Critically low 81.0-99.0 [facility] Comment on above: Performed By: #### C BC #### [facility] [address] [place] [address] Dr. Lemuel Serrato MONO # 0.7 103/ul Normal 0.3-0.8 [facility] Comment on above: Performed By: #### C BC #### [facility] [address] [place] [address] Dr. Lemuel Serrato Monocytes/100 WBC (Bld) 8.8 % Normal 1.7-12.0 [facility] Comment on above: Performed By: #### C BC #### [facility] [address] [place] [address] Dr. Lemuel Serrato NEUT # 3.4 103/ul Normal 1.4-6.5 [facility] Comment on above: Performed By: #### C BC #### [facility] [address] [address] [address] Lemuel Serrato Neutrophils/100 WBC (Bld) 45.9 % Normal 43.0-75.0 [facility] Comment on above: Performed By: #### C BC #### [facility] [address] [place] [address] Dr. Lemuel Serrato Platelet mean volume (Bld) [Entitic vol] 9.8 fL Normal 9.5-13.5 [facility] Comment on above: Performed By: #### C BC #### [facility] [address] [place] [address] Dr. Lemuel Serrato PLT 263 103/ul Normal 150-450 [facility] Comment on above: Performed By: #### C BC #### [facility] [address] [place] [address] Dr. Lemuel Serrato RBC 4.75 106/ul Normal 4.20-5.40 [facility] Comment on above: Result Comment: SLIG HT MICROCYTOSIS 1+ POIKILOCYTOSIS 1+ OVALOCYTE SLIGHT ACANTHOCYTE Performed By: #### C BC #### [facility] [address] [place] [address] Dr. Lemuel Serrato WBC 7.4 103/ul Normal 4.0-11.0 [facility] Comment on above: Performed By: #### C BC #### [facility] [address] [place] [address] Dr. Lemuel Serrato FREE THYROXINE INDEX T7on FTI 2.15 Normal 1.30-4.50 [facility] Comment on above: Performed By: #### T 7, LIPID, TSH, CMP #### [facility] [address] [place] [address] Dr. Lemuel Serrato T3U 33.0 % Normal 30.0-39.0 [facility] Comment on above: Performed By: #### T 7, LIPID, TSH, CMP #### [facility] [address] [address] [address] Lemuel Serrato T4 [Mass/Vol] 6.50 ug/dL Normal 4.80-13.90 [facility] Comment on above: Performed By: #### T 7, LIPID, TSH, CMP #### [facility] [address] [address] [address] Lemuel Serrato GLYCOHEMOGLOBIN A1Con 2021 ADA RECOMMENDATION SEE BELOW Normal [facility] Comment on above: Result Comment: ADA RECOMMENDED LIMIT 4.0 - 6.0 ADA THERAPEUTIC TARGET < 7.0 ACTION SUGGESTED > 7.0 Performed By: #### A 1C #### [facility] [address] [place] [address] Dr. Lemuel Serrato Glucose [Mass/Vol] 137 mg/dL Normal [facility] Comment on above: Performed By: #### A 1C #### [facility] [address] [address] [address] Lemuel Serrato HbA1c (Bld) [Mass fraction] 6.4 % Critically high 4.5-6.2 [facility] Comment on above: Performed By: #### A 1C #### [facility] [address] [place] [address] Dr. Lemuel Serrato IRONon 07-15-2022 Iron [Mass/Vol] 70.0 ug/dL Normal 50.0-170.0 [facility] Comment on above: Performed By: #### I MARAL #### [facility] [address] [address] [address] Lemuel Serrato LIPID PROFILEon 07-15-2022 CHOL-HDL RATIO NORM SEE BELOW Normal [facility] Comment on above: Result Comment: 3.3 - 4.4 LOW RISK 4.4 - 7.1 AVERAGE RISK 7.1 - 11.0 MODERATE RISK >11.0 HIGH RISK Performed By: #### T 7, LIPID, TSH, CMP #### [facility] [address] [place] [address] Dr. Lemuel Serrato Cholesterol [Mass/Vol] 152 mg/dL Normal <=200 [facility] Comment on above: Performed By: #### T 7, LIPID, TSH, CMP #### [facility] [address] [address] [address] Lemuel Serrato Cholesterol in HDL [Mass/Vol] 32 mg/dL Critically low 40-60 [facility] Comment on above: Performed By: #### T 7, LIPID, TSH, CMP #### [facility] [address] [address] [address] Lemuel Serrato Cholesterol in LDL [Mass/Vol] 96.8 mg/dL Normal [facility] Comment on above: Performed By: #### T 7, LIPID, TSH, CMP #### [facility] [address] [address] [address] Lemuel Serrato Cholesterol.total/Cho lesterol in HDL [Mass ratio] 4.8 {ratio} Normal [facility] Comment on above: Performed By: #### T 7, LIPID, TSH, CMP #### [facility] [address] [address] [address] Lemuel Serrato HDL NORMAL > or = 60 mg/dl - LOW CARDIOVASCULAR RISK <40 mg/dl - HIGH CARDIOVASCULAR RISK Normal [facility] Comment on above: Performed By: #### T 7, LIPID, TSH, CMP #### [facility] [address] [address] [address] Lemuel Serrato LDL CALC NORMAL SEE BELOW Normal [facility] Comment on above: Result Comment: <100 mg/dl OPTIMAL 100 - 129 mg/dl NEAR OR ABOVE OPTIMAL 130 - 159 mg/dl BORDERLINE HIGH 160 - 189 mg/dl HIGH >190 mg/dl VERY HIGH Performed By: #### T 7, LIPID, TSH, CMP #### [facility] [address] [address] [address] Lemuel Serrato Triglyceride [Mass/Vol] 116 mg/dL Normal <=150 [facility] Comment on above: Performed By: #### T 7, LIPID, TSH, CMP #### [facility] [address] [address] [address] Lemuel Serrato VLDL CALC 23.2 mg/dL Normal [facility] Comment on above: Performed By: #### T 7, LIPID, TSH, CMP #### [facility] [address] [place] [address] Dr. Lemuel Serrato PROF 14(COMP METB)on 022 Albumin [Mass/Vol] 3.5 g/dL Normal 3.4-5.0 [facility] Comment on above: Performed By: #### T 7, LIPID, TSH, CMP #### [facility] [address] [place] [address] Dr. Lemuel Serrato Albumin/Globulin [Mass ratio] 0.9 {ratio} Normal [facility] Comment on above: Performed By: #### T 7, LIPID, TSH, CMP #### [facility] [address] [place] [address] Dr. Lemuel Serrato ALP [Catalytic activity/Vol] 91 U/L Normal 46-116 [facility] Comment on above: Performed By: #### T 7, LIPID, TSH, CMP #### [facility] [address] [place] [address] Dr. Lemuel Serrato ALT [Catalytic activity/Vol] 21 U/L Normal 14-59 [facility] Comment on above: Performed By: #### T 7, LIPID, TSH, CMP #### [facility] [address] [place] [address] Dr. Lemuel Serrato Anion gap [Moles/Vol] 10.1 mmol/L Normal [facility] Comment on above: Performed By: #### T 7, LIPID, TSH, CMP #### [facility] [address] [place] [address] Dr. Lemuel Serrato AST [Catalytic activity/Vol] 10 U/L Critically low 15-37 [facility] Comment on above: Performed By: #### T 7, LIPID, TSH, CMP #### [facility] [address] [place] [address] Dr. Lemuel Serrato Bilirubin [Mass/Vol] 0.3 mg/dL Normal 0.2-1.0 [facility] Comment on above: Performed By: #### T 7, LIPID, TSH, CMP #### [facility] [address] [address] [address] Lemuel Serrato Calcium [Mass/Vol] 8.6 mg/dL Normal 8.5-10.1 [facility] Comment on above: Performed By: #### T 7, LIPID, TSH, CMP #### [facility] [address] [place] [address] Dr. Lemuel Serrato Chloride [Moles/Vol] 107 mmol/L Normal 98-107 [facility] Comment on above: Performed By: #### T 7, LIPID, TSH, CMP #### [facility] [address] [place] [address] Dr. Lemuel Serrato CO2 [Moles/Vol] 25.8 mmol/L Normal 21.0-32.0 [facility] Comment on above: Performed By: #### T 7, LIPID, TSH, CMP #### [facility] [address] [place] [address] Dr. Lemuel Serrato Creatinine [Mass/Vol] 1.20 mg/dL Critically high 0.55-1.02 [facility] Comment on above: Performed By: #### T 7, LIPID, TSH, CMP #### [facility] [address] [place] [address] Dr. Lemuel Serrato EGFR-AF BRUNEIAN 55 mL/min/1.73m2 Critically low >=60 [facility] Comment on above: Performed By: #### T 7, LIPID, TSH, CMP #### [facility] [address] [place] [address] Dr. Lemuel Serrato EGFR-NON AF BRUNEIAN 45 mL/min/1.73m2 Critically low >=60 [facility] Comment on above: Performed By: #### T 7, LIPID, TSH, CMP #### [facility] [address] [place] [address] Dr. Lemuel Serrato Globulin (S) [Mass/Vol] 3.9 g/dL Normal [facility] Comment on above: Performed By: #### T 7, LIPID, TSH, CMP #### [facility] [address] [place] [address] Dr. Lemuel Serrato Glucose [Mass/Vol] 96 mg/dL Normal 74-106 [facility] Comment on above: Performed By: #### T 7, LIPID, TSH, CMP #### [facility] [address] [place] [address] Dr. Lemuel Serrato Potassium [Moles/Vol] 3.9 mmol/L Normal 3.5-5.1 [facility] Comment on above: Performed By: #### T 7, LIPID, TSH, CMP #### [facility] [address] [place] [address] Dr. Lemuel Serrato Protein [Mass/Vol] 7.4 g/dL Normal 6.4-8.2 [facility] Comment on above: Performed By: #### T 7, LIPID, TSH, CMP #### [facility] [address] [place] [address] Dr. Lemuel Serrato Sodium [Moles/Vol] 139 mmol/L Normal 136-145 [facility] Comment on above: Performed By: #### T 7, LIPID, TSH, CMP #### [facility] [address] [place] [address] Dr. Lemuel Serrato Urea nitrogen [Mass/Vol] 23.0 mg/dL Critically high 7.0-18.0 [facility] Comment on above: Performed By: #### T 7, LIPID, TSH, CMP #### [facility] [address] [place] [address] Dr. Lemuel Serrato Urea nitrogen/Creatinine [Mass ratio] 19.2 mg/mg Normal [facility] Comment on above: Performed By: #### T 7, LIPID, TSH, CMP #### [facility] [address] [place] [address] Dr. Lemuel Serrato TSHon 07-15-2022 TSH 2.220 uIU/mL Normal 0.358-3.740 [facility] Comment on above: Performed By: #### T 7, LIPID, TSH, CMP #### [facility] [address] [place] [address] Dr. Lemuel Serrato Vital Signs Date Time Vital Sign Value Performing Clinician Facility 07-08-2024 13:21-0400 Body height 165.1 cm [facility] 07-08-2024 13:21-0400 Body mass index (BMI) [Ratio] 26.1 kg/m2 [facility] 07-08-2024 13:21-0400 Body temperature 97.8 [degF] [facility] 07-08-2024 13:21-0400 Body weight 71.21 kg [facility] 07-08-2024 13:21-0400 Diastolic blood pressure 86 mm[Hg] [facility] 07-08-2024 13:21-0400 Heart rate 98 /min [facility] 07-08-2024 13:21-0400 Respiratory rate 18 /min [facility] 07-08-2024 13:21-0400 SaO2% (BldA) [Mass fraction] 97 % [facility] 07-08-2024 13:21-0400 Systolic blood pressure 163 mm[Hg] [facility] 09-07-2021 15:00-0500 Body height 165.1 cm Evonne Ginty Other [employer] [facility] [employer] Other 09-07-2021 15:00-0500 Body mass index (BMI) [Ratio] 26.62 kg/m2 Evonne Ginty Other [employer] Other 09-07-2021 15:00-0500 Body temperature 100.6 [degF] Evonne Ginty Other [employer] Other 09-07-2021 15:00-0500 Body weight 72.58 kg Evonne Ginty Other [employer] Other 09-07-2021 15:00-0500 SaO2% (BldA) [Mass fraction] 96 % Evonne Ginty Other [employer] Other Encounters Encounter Date Encounter Type Care Provider Facility Start: 07-08-2024 End: 07-08-2024 ambulatory [facility] Work Phone: Start: 07-08-2024 End: 07-08-2024 Patient encounter procedure [facility] Work Phone: Start: 11-04-2023 Refill Indu Cash [facility] Comment on above: PVD (peripheral vasc ular disease) ([facility]); Claudication ([facility] Bilateral carotid bruits Start: 07-18-2022 Encounter for genera l adult medical examination without abnormal findings DR SKYE BOWMAN [facility] Start: 07-15-2022 End: 07-16-[address] SKYE BOWMAN Facility:[facility] Start: 07-15-2022 End: 07-16-2022 Encounter for general adult medical examination without abnormal findings DR SKYE BOWMAN Facility:[facility] Start: 06-27-2022 End: 06-28-2022 ambulatory TED CASTREJON Facility:[facility] Start: 09-07-2021 End: 09-07-2021 ambulatory Evonne Seo Other [employer] Other Start: 09-07-2021 Office outpatient vi sit 15 minutes Evonne Seo [facility] Start: 11-23-2017 End: 11-24-2017 Ambulatory DEFAULT PHYSICIAN Facility:[facility] Plan of Treatment Date Care Activity Detail Author Start: 07-22-2023 Tobacco Screening Tobacco Screening [facility] Start: 06-09-2023 Influenza vaccination Influenza Vaccine [facility] Start: 2022 Fall Risk Screening Fall Risk Screening [facility] Start: 12-29-2021 DTaP,Tdap and Td Vaccines (2 - Td or Tdap) DTaP,Tdap and Td Vaccines (2 - Td or Tdap) [facility] Start: 2007 Administration of varicella zoster vaccine Zoster (Shingles) Vaccine (1 of 2) [facility] Start: 1975 Adult BMI Screening Adult BMI Screening [facility] Start: 1969 Depression Screening Depression Screening [facility] Payers Date Payer Category Payer Unknown [id number] 1955 Unknown [id number] 1955 Unknown [id number] Medicare Medicare [id number] Unknown Social History Date Type Detail Facility Start: 03-20-2019 End: 07-22-2022 Sex Assigned At [facility] [employer] Other Start: 07-22-2022 Tobacco smoking stat [facility] Smokes tobacco daily [facility] History of tobacco use Cigarette Smoker [facility] Start: 07-22-2022 Tobacco use and exposure Smokeless tobacco non-user [facility] Start: 07-22-2022 Alcohol intake Defer [facility] Start: 03-20-2019 End: 07-22-2022 History of Social function [facility] Childcare Unknown [facility] Start: 1955 Sex Assigned At Not on file [facility] Start: 07-08-2024 Tobacco smoking stat [facility] Smoker (finding) [facility] Start: 1955 [facility] Evaluation note 09-07-2021 Note Date & [...] Patient care instructions given in writting by [facility] Care At Home document [employer] Other Evaluation note Note Date & Type Note Facility Evaluation note Diagnosis PVD (peripheral vascular disease) ([facility]) Unspecified peripheral vascular disease Claudication ([facility]) Unspecified peripheral vascular disease Bilateral carotid bruits documented in this encounter [employer] [facility] Evaluation note Note Date & Type Note Facility Evaluation note Diagnosis Onset Date Contact dermatitis noneactiv e [facility] Work Phone: History general Narrative - Reported Note Date & Type Note Facility History general Narrative - Reported Type Medical History thalassemia minor [employer] Other Instructions Note Date & Type Note Facility Instructions Not on filedocumented in this en counter [employer] [facility] Summary Purpose Family History No Family History Records FoundNo Family History Records Found Advance Directives Advance Directive Response Recorded Date/ Time Advance Directives No June 1:13pm Chief Complaint and Reason for Visit Chief Complaint swelling/itching carrie und eyes Reason for Visit Contact dermatitis Additional Source Comments INFORMATION SOURCE (unrecogn ized section and content) DATE CREATED AUTHOR 03/30/2018 [facility] DATE CREATED AUTHOR AUTHOR'S ORGANIZ ATION 07/18/2022 [facility] REASON FOR VISIT (unrecogniz ed section and content) Reason Comments Med Refill Care Teams (unrecognized sec tion and content) Unscrambler Relationship Specialty Start Date End Date Skye Bowman MD [address] [place] [address] PCP - General Family Medicine 06/30/22 Team [...] BE BASED ON THE PRIMARY CLINICAL RECORDS. [facility] [employer] [facility]. provides no warranty or guarantee of the accuracy or completeness of information in this document.
== END 2024-10-18 11:01 | disposition home or self-care (01) ==
LOC: VC 11:01
PROVIDERS: PCP Family Medicine; Visit Provider Family Medicine
DX: R09.89 Other specified symptoms and signs involving the circulatory and respiratory systems (principal); M54.16 Radiculopathy, lumbar region
CPT/HCPCS: 93923

== ENCOUNTER 2024-10-21 07:32 | Day surgery (SDC) | payer MEDICARE, SELFPAY ==
--- OUTSIDE RECORDS SUMMARY | 2024-10-21 07:36 | XMS_ITS | CCD ---
Author Organization [facility] Care Team Providers Care Pack Worker Supervisor Name Role Phone PHYSICIAN, DEFAULT Unavailable Unavailable PHYSICIAN, DEFAULT Unavailable Unavailable Evonne Seo Unavailable TED CASTREJON Admitting Unavailable TED CASTREJON Attending Unavailable MARTI, DR CHEUNG Primary Care Unavailable TED CASTREJON Consulting Unavailable MARTI, DR CHEUNG Admitting Unavailable MARTI, DR CHEUNG Attending Unavailable DR SKYE BOWMAN Primary Care Unavailable DR SKYE BOWMAN Consulting Unavailable Skye Bowman MD Primary Care Provider [phone] Medications Current Medications Medication Drug Class(es) Dates Sig (Normalized) Sig (Original) cilostazol 100 mg oral tablet (3 sources) Phosphodiesterase 3 Inhibitor Start: 07-08-2024 take 100 mg by mouth once Cilostazol Active 100 MG PO Once July 08, 2024 12:00am Start: 11-04-2023 take 1 tablet by jose twice daily cilostazoL (PLETAL) 100 mg tablet Indications: PVD (peripheral vascular disease) ([facility]) , Claudication ([facility]) , Bilateral carotid bruits take 1 tablet [...] INSULINon 07-16-2022 Insulin 14.3 uIU/mL Normal 2.6-24.9 [facility] Comment on above: Performed By: #### I NSULIN #### [facility] [address] [place] [address] Dr. Lemuel Serrato CBC AUTO DIFFon 07-15-2022 BASO # 0.0 103/ul Normal 0.0-0.1 [facility] Comment on above: Performed By: #### C BC #### [facility] [address] [address] [address] Lemuel Serrato Basophils/100 WBC (Bld) 0.4 % Normal 0.2-2.0 [facility] Comment on above: Performed By: #### C BC #### [facility] [address] [address] [address] Lemuel Serrato EO # 0.2 103/ul Normal 0.0-0.7 [facility] Comment on above: Performed By: #### C BC #### [facility] [address] [address] [address] Lemuel Serrato Eosinophils/100 WBC (Bld) 2.7 % Normal 0.9-7.0 [facility] Comment on above: Performed By: #### C BC #### [facility] [address] [place] [address] Dr. Lemuel Serrato Erythrocyte distribution width (RBC) [Ratio] 15.9 % Critically high 11.0-15.0 [facility] Comment on above: Performed By: #### C BC #### [facility] [address] [place] [address] Dr. Lemuel Serrato Hematocrit (Bld) [Volume fraction] 30.5 % Critically low 36.0-48.0 [facility] Comment on above: Performed By: #### C BC #### [facility] [address] [place] [address] Dr. Lemuel Serrato Hemoglobin (Bld) [Mass/Vol] 9.0 g/dL Critically low 12.0-16.0 [facility] Comment on above: Performed By: #### C BC #### [facility] [address] [place] [address] Dr. Lemuel Serrato IG # 0.03 10e3/ul Normal 0.00-0.03 [facility] Comment on above: Performed By: #### C BC #### [facility] [address] [address] [address] Lemuel Serraot IG % 0.4 % Normal 0.0-0.5 [facility] Comment on above: Performed By: #### C BC #### [facility] [address] [address] [address] Lemuel Serrato LYMPH # 3.1 103/ul Normal 1.2-3.8 [facility] Comment on above: Performed By: #### C BC #### [facility] [address] [place] [address] Dr. Lemuel Serrato Lymphocytes/100 WBC (Bld) 41.8 % Normal 20.5-60.0 [facility] Comment on above: Performed By: #### C BC #### [facility] [address] [place] [address] Dr. Lemuel Serrato MANUAL DIFF REQ NO Normal [facility] Comment on above: Performed By: #### C BC #### [facility] [address] [place] [address] Dr. Lemuel Serrato MCH (RBC) [Entitic mass] 18.9 pg Critically low 26.7-34.0 [facility] Comment on above: Performed By: #### C BC #### [facility] [address] [place] [address] Dr. Lemuel Serrato MCHC (RBC) [Mass/Vol] 29.5 g/dL Critically low 29.9-35.2 [facility] Comment on above: Performed By: #### C BC #### [facility] [address] [place] [address] Dr. Lemuel Serrato MCV (RBC) [Entitic vol] 64.2 fL Critically low 81.0-99.0 [facility] Comment on above: Performed By: #### C BC #### [facility] [address] [place] [address] Dr. Lemuel Serrato MONO # 0.7 103/ul Normal 0.3-0.8 [facility] Comment on above: Performed By: #### C BC #### [facility] [address] [place] [address] Dr. Lemuel Serrato Monocytes/100 WBC (Bld) 8.8 % Normal 1.7-12.0 [facility] Comment on above: Performed By: #### C BC #### [facility] [address] [place] [address] Dr. Lemuel Serrato NEUT # 3.4 103/ul Normal 1.4-6.5 [facility] Comment on above: Performed By: #### C BC #### [facility] [address] [address] [address] Lemuel Serrato Neutrophils/100 WBC (Bld) 45.9 % Normal 43.0-75.0 [facility] Comment on above: Performed By: #### C BC #### [facility] [address] [place] [address] Dr. Lemuel Serrato Platelet mean volume (Bld) [Entitic vol] 9.8 fL Normal 9.5-13.5 [facility] Comment on above: Performed By: #### C BC #### [facility] [address] [place] [address] Dr. Lemuel Serrato PLT 263 103/ul Normal 150-450 [facility] Comment on above: Performed By: #### C BC #### [facility] [address] [place] [address] Dr. Lemuel Serrato RBC 4.75 106/ul Normal 4.20-5.40 [facility] Comment on above: Result Comment: SLIG HT MICROCYTOSIS 1+ POIKILOCYTOSIS 1+ OVALOCYTE SLIGHT ACANTHOCYTE Performed By: #### C BC #### [facility] [address] [place] [address] Dr. Lemuel Serrato WBC 7.4 103/ul Normal 4.0-11.0 [facility] Comment on above: Performed By: #### C BC #### [facility] [address] [place] [address] Dr. Lemuel Serrato FREE THYROXINE INDEX T7on FTI 2.15 Normal 1.30-4.50 [facility] Comment on above: Performed By: #### T 7, LIPID, TSH, CMP #### [facility] [address] [place] [address] Dr. Lemuel Serrato T3U 33.0 % Normal 30.0-39.0 [facility] Comment on above: Performed By: #### T 7, LIPID, TSH, CMP #### [facility] [address] [address] [address] eLmuel Serrato T4 [Mass/Vol] 6.50 ug/dL Normal 4.80-13.90 [facility] Comment on above: Performed By: #### T 7, LIPID, TSH, CMP #### [facility] [address] [address] [address] Lemuel Serrato GLYCOHEMOGLOBIN A1Con 2021 ADA RECOMMENDATION SEE BELOW Normal [facility] Comment on above: Result Comment: ADA RECOMMENDED LIMIT 4.0 - 6.0 ADA THERAPEUTIC TARGET < 7.0 ACTION SUGGESTED > 7.0 Performed By: #### A 1C #### [facility] [address] [place] [address] Dr. Lemuel Serrato Glucose [Mass/Vol] 137 mg/dL Normal [facility] Comment on above: Performed By: #### A 1C #### [facility] [address] [address] [address] Lemuel Serrato HbA1c (Bld) [Mass fraction] 6.4 % Critically high 4.5-6.2 [facility] Comment on above: Performed By: #### A 1C #### [facility] [address] [place] [address] Dr. Lemuel Serrato IRONon 07-15-2022 Iron [Mass/Vol] 70.0 ug/dL Normal 50.0-170.0 [facility] Comment on above: Performed By: #### I MARAL #### [facility] [address] [address] [address] Lemuel Serrato LIPID PROFILEon 07-15-2022 CHOL-HDL RATIO NORM SEE BELOW Normal [facility] Comment on above: Result Comment: 3.3 - 4.4 LOW RISK 4.4 - 7.1 AVERAGE RISK 7.1 - 11.0 MODERATE RISK >11.0 HIGH RISK Performed By: #### T 7, LIPID, TSH, CMP #### [facility] [address] [place] [address] Dr. Lemuel Serrato Cholesterol [Mass/Vol] 152 mg/dL Normal <=200 [facility] Comment on above: Performed By: #### T 7, LIPID, TSH, CMP #### [facility] [address] [address] [address] Lemuel Serrato Cholesterol in HDL [Mass/Vol] 32 mg/dL Critically low 40-60 [facility] Comment on above: Performed By: #### T 7, LIPID, TSH, CMP #### [facility] [address] [address] [address] Lemuel Serrato Cholesterol in LDL [Mass/Vol] 96.8 mg/dL Normal [facility] Comment on above: Performed By: #### T 7, LIPID, TSH, CMP #### [facility] [address] [address] [address] Lemuel Serrato Cholesterol.total/Cho lesterol in HDL [Mass ratio] 4.8 {ratio} Normal [facility] Comment on above: Performed By: #### T 7, LIPID, TSH, CMP #### [facility] [address] [address] [address] Lemuel Serrato HDL NORMAL > or = 60 mg/dl - LOW CARDIOVASCULAR RISK <40 mg/dl - HIGH CARDIOVASCULAR RISK Normal [facility] Comment on above: Performed By: #### T 7, LIPID, TSH, CMP #### [facility] [address] [address] [address] Lemuel Serrato LDL CALC NORMAL SEE BELOW Normal [facility] Comment on above: Result Comment: <100 mg/dl OPTIMAL 100 - 129 mg/dl NEAR OR ABOVE OPTIMAL 130 - 159 mg/dl BORDERLINE HIGH 160 - 189 mg/dl HIGH >190 mg/dl VERY HIGH Performed By: #### T 7, LIPID, TSH, CMP #### [facility] [address] [address] [address] Lemuel Serrato Triglyceride [Mass/Vol] 116 mg/dL Normal <=150 [facility] Comment on above: Performed By: #### T 7, LIPID, TSH, CMP #### [facility] [address] [address] [address] Lemuel Serrato VLDL CALC 23.2 mg/dL Normal [facility] Comment on above: Performed By: #### T 7, LIPID, TSH, CMP #### [facility] [address] [place] [address] Dr. Lemuel Serrato PROF 14(COMP METB)on 022 Albumin [Mass/Vol] 3.5 g/dL Normal 3.4-5.0 [facility] Comment on above: Performed By: #### T 7, LIPID, TSH, CMP #### [facility] [address] [place] [address] Dr. Lemuel Serrato Albumin/Globulin [Mass ratio] 0.9 {ratio} Normal [facility] Comment on above: Performed By: #### T 7, LIPID, TSH, CMP #### [facility] [address] [place] [address] Dr. Lemuel Serrato ALP [Catalytic activity/Vol] 91 U/L Normal 46-116 [facility] Comment on above: Performed By: #### T 7, LIPID, TSH, CMP #### [facility] [address] [place] [address] Dr. Lemuel Serrato ALT [Catalytic activity/Vol] 21 U/L Normal 14-59 [facility] Comment on above: Performed By: #### T 7, LIPID, TSH, CMP #### [facility] [address] [place] [address] Dr. Lemuel Serrato Anion gap [Moles/Vol] 10.1 mmol/L Normal [facility] Comment on above: Performed By: #### T 7, LIPID, TSH, CMP #### [facility] [address] [place] [address] Dr. Lemuel Serrato AST [Catalytic activity/Vol] 10 U/L Critically low 15-37 [facility] Comment on above: Performed By: #### T 7, LIPID, TSH, CMP #### [facility] [address] [place] [address] Dr. Lemuel Serrato Bilirubin [Mass/Vol] 0.3 mg/dL Normal 0.2-1.0 [facility] Comment on above: Performed By: #### T 7, LIPID, TSH, CMP #### [facility] [address] [address] [address] Lemuel Serrato Calcium [Mass/Vol] 8.6 mg/dL Normal 8.5-10.1 [facility] Comment on above: Performed By: #### T 7, LIPID, TSH, CMP #### [facility] [address] [place] [address] Dr. Lemuel Serrato Chloride [Moles/Vol] 107 mmol/L Normal 98-107 [facility] Comment on above: Performed By: #### T 7, LIPID, TSH, CMP #### [facility] [address] [place] [address] Dr. Lemuel Serrato CO2 [Moles/Vol] 25.8 mmol/L Normal 21.0-32.0 [facility] Comment on above: Performed By: #### T 7, LIPID, TSH, CMP #### [facility] [address] [place] [address] Dr. Lemuel Serrato Creatinine [Mass/Vol] 1.20 mg/dL Critically high 0.55-1.02 [facility] Comment on above: Performed By: #### T 7, LIPID, TSH, CMP #### [facility] [address] [place] [address] Dr. Lemuel Serrato EGFR-AF [place] 55 mL/min/1.73m2 Critically low >=60 [facility] Comment on above: Performed By: #### T 7, LIPID, TSH, CMP #### [facility] [address] [place] [address] Dr. Lemuel Serrato EGFR-NON AF [place] 45 mL/min/1.73m2 Critically low >=60 [facility] Comment on above: Performed By: #### T 7, LIPID, TSH, CMP #### [facility] [address] [place] [address] Dr. Lemuel Serrato Globulin (S) [Mass/Vol] 3.9 g/dL Normal [facility] Comment on above: Performed By: #### T 7, LIPID, TSH, CMP #### [facility] [address] [place] [address] Dr. Lemuel Serrato Glucose [Mass/Vol] 96 mg/dL Normal 74-106 [facility] Comment on above: Performed By: #### T 7, LIPID, TSH, CMP #### [facility] [address] [place] [address] Dr. Lemuel Serrato Potassium [Moles/Vol] 3.9 mmol/L Normal 3.5-5.1 [facility] Comment on above: Performed By: #### T 7, LIPID, TSH, CMP #### [facility] [address] [place] [address] Dr. Lemuel Serrato Protein [Mass/Vol] 7.4 g/dL Normal 6.4-8.2 [facility] Comment on above: Performed By: #### T 7, LIPID, TSH, CMP #### [facility] [address] [place] [address] Dr. Lemuel Serrato Sodium [Moles/Vol] 139 mmol/L Normal 136-145 [facility] Comment on above: Performed By: #### T 7, LIPID, TSH, CMP #### [facility] [address] [place] [address] Dr. Lemuel Serrato Urea nitrogen [Mass/Vol] 23.0 mg/dL Critically high 7.0-18.0 [facility] Comment on above: Performed By: #### T 7, LIPID, TSH, CMP #### [facility] [address] [place] [address] Dr. Lemuel Serrato Urea nitrogen/Creatinine [Mass ratio] 19.2 mg/mg Normal [facility] Comment on above: Performed By: #### T 7, LIPID, TSH, CMP #### [facility] [address] [place] [address] Dr. Lemuel Serrato TSHon 07-15-2022 TSH 2.220 uIU/mL Normal 0.358-3.740 [facility] Comment on above: Performed By: #### T 7, LIPID, TSH, CMP #### [facility] [address] [place] [address] Dr. Lemuel Serrato Vital Signs Date Time Vital Sign Value Performing Clinician Facility 07-08-2024 13:21-0400 Body height 165.1 cm [facility] 07-08-2024 13:21-0400 Body mass index (BMI) [Ratio] 26.1 kg/m2 [facility] 07-08-2024 13:21-0400 Body temperature 97.8 [degF] [facility] 07-08-2024 13:21-0400 Body weight 71.21 kg [facility] 07-08-2024 13:21-0400 Diastolic blood pressure 86 mm[Hg] [facility] 07-08-2024 13:21-0400 Heart rate 98 /min [facility] 07-08-2024 13:21-0400 Respiratory rate 18 /min [facility] 07-08-2024 13:21-0400 SaO2% (BldA) [Mass fraction] 97 % [facility] 07-08-2024 13:21-0400 Systolic blood pressure 163 mm[Hg] [facility] 09-07-2021 15:00-0500 Body height 165.1 cm Evonne Ginty Other [facility] Other 09-07-2021 15:00-0500 Body mass index (BMI) [Ratio] 26.62 kg/m2 Evonne Ginty Other [facility] Other 09-07-2021 15:00-0500 Body temperature 100.6 [degF] Evonne Ginty Other [facility] Other 09-07-2021 15:00-0500 Body weight 72.58 kg Evonne Ginty Other [facility] Other 09-07-2021 15:00-0500 SaO2% (BldA) [Mass fraction] 96 % Evonne Ginty Other [facility] Other Encounters Encounter Date Encounter Type Care Provider Facility Start: 07-08-2024 End: 07-08-2024 ambulatory [facility] Work Phone: Start: 07-08-2024 End: 07-08-2024 Patient encounter procedure [facility] Work Phone: Start: 11-04-2023 Refill Indu Cash [facility] Comment on above: PVD (peripheral vasc ular disease) ([facility]); Claudication ([facility]); Bilateral carotid bruits Start: 07-18-2022 Encounter for genera l adult medical examination without abnormal findings DR SKYE BOWMAN [facility] Start: 07-15-2022 End: 07-16-[address] SKYE BOWMAN Facility:[facility] Start: 07-15-2022 End: 07-16-2022 Encounter for general adult medical examination without abnormal findings DR SKYE BOWMAN Facility:[facility] Start: 06-27-2022 End: 06-28-2022 ambulatory TED CASTREJON Facility:[facility] Start: 09-07-2021 End: 09-07-2021 ambulatory Evonne Seo Other [facility] Other Start: 09-07-2021 Office outpatient vi sit 15 minutes Evonne Seo [facility] Start: 11-23-2017 End: 11-24-2017 Ambulatory DEFAULT PHYSICIAN Facility:[facility] Plan of Treatment Date Care Activity Detail Author Start: 07-22-2023 Tobacco Screening Tobacco Screening [facility] Start: 06-09-2023 Influenza vaccination Influenza Vaccine [facility] Start: 2022 Fall Risk Screening Fall Risk Screening [facility] Start: 12-29-2021 DTaP,Tdap and Td Vaccines (2 - Td or Tdap) DTaP,Tdap and Td Vaccines (2 - Td or Tdap) [facility] Start: 2007 Administration of varicella zoster vaccine Zoster (Shingles) Vaccine (1 of 2) [facility] Start: 1975 Adult BMI Screening Adult BMI Screening [facility] Start: 1969 Depression Screening Depression Screening [facility] Payers Date Payer Category Payer Unknown [id number] 1955 Unknown [id number] 1955 Unknown [id number] Medicare Medicare [id number] Unknown Social History Date Type Detail Facility Start: 03-20-2019 End: 07-22-2022 Sex Assigned At [facility] Other Start: 07-22-2022 Tobacco smoking stat [facility] Smokes tobacco daily [facility] History of tobacco use Cigarette Smoker P [facility] Start: 07-22-2022 Tobacco use and exposure Smokeless tobacco non-user [facility] Start: 07-22-2022 Alcohol intake Defer [facility] Start: 03-20-2019 End: 07-22-2022 History of Social function [facility] Childcare Unknown [facility] Start: 1955 Sex Assigned At Not on file P [facility] Start: 07-08-2024 Tobacco smoking stat [facility] Smoker (finding) [facility] Start: 1955 Sex Assigned At Female F [facility] Evaluation note 09-07-2021 Note Date & [...] Patient care instructions given in writting by [facility] Care At Home document [facility] Other Evaluation note Note Date & Type Note Facility Evaluation note Diagnosis PVD (peripheral vascular disease) ([facility]) Unspecified peripheral vascular disease Claudication ([facility]) Unspecified peripheral vascular disease Bilateral carotid bruits documented in this encounter [facility] Evaluation note Note Date & Type Note Facility Evaluation note Diagnosis Onset Date Contact dermatitis noneactiv e [facility] Work Phone: History general Narrative - Reported Note Date & Type Note Facility History general Narrative - Reported Type Medical History thalassemia minor [facility] Other Instructions Note Date & Type Note Facility Instructions Not on filedocumented in this en counter [facility] Summary Purpose Family History No Family History Records FoundNo Family History Records Found Advance Directives Advance Directive Response Recorded Date/ Time Advance Directives No June 1:13pm Chief Complaint and Reason for Visit Chief Complaint swelling/itching carrie und eyes Reason for Visit Contact dermatitis Additional Source Comments INFORMATION SOURCE (unrecogn ized section and content) DATE CREATED AUTHOR 03/30/2018 [facility] DATE CREATED AUTHOR AUTHOR'S ORGANIZ ATION 07/18/2022 [facility] REASON FOR VISIT (unrecogniz ed section and content) Reason Comments Med Refill Care Teams (unrecognized sec tion and content) Pack Worker Supervisor Relationship Specialty Start Date End Date Skye Bowman MD [address] [place] [address] PCP - General Family Medicine 06/30/22 Team [...] BE BASED ON THE PRIMARY CLINICAL RECORDS. [facility] [employer] [facility] provides no warranty or guarantee of the accuracy or completeness of information in this document.
[2024-10-21 07:55] VITALS: BP 143/78; PULSE 84; TEMP 36.3; O2SAT 96
[2024-10-21 08:39] VITALS: BP 170/82; PULSE 87; O2SAT 100
[2024-10-21 08:40] VITALS: BP 155/89; PULSE 86; O2SAT 100
[2024-10-21] MEDS: IOHEXOL 240 MG/ML - 10 ML VIAL 24 MG INJ (08:42)
[2024-10-21] MEDS: 0.9 % SODIUM CHLORIDE 10 ML SYRINGE - SALINE FLUSH INJ (08:42)
[2024-10-21] MEDS: LIDOCAINE HCL 2% 400 MG/20 ML MDV 3 ML INJ (08:42)
[2024-10-21] MEDS: BUPIVACAINE HCL 0.25% PF 25 MG/10 ML VIAL INJ (08:42)
[2024-10-21] MEDS: METHYLPREDNISOLONE ACETATE 80 MG/ML VIAL INJ (08:43)
--- NOTE | 2024-10-21 08:45 | P.ON_ITS ---
Date of procedure: 10/21/24 Pre-op diagnosis: Pain due to lumbar stenosis with neurogenic claudication Post-op diagnosis: same as pre-op Procedure: Procedure: Right L4-5, L5-S1 transforaminal epidural steroid injection Medications: Bupivacaine 0.25% 2cc, lidocaine 2% 1cc, depomedrol 80mg The patient was seen and examined in the preoperative holding area.? Informed consent was obtained and placed on the chart.? Patient was brought to the medical procedure unit and placed in the prone position where a timeout was completed verifying the correct patient, procedure site, position, and planned special equipment using sterile aseptic technique.? Under direct fluoroscopic visualization a 25-gauge Quincke tipped spinal needle was advanced to the designated neural foramen where contrast dye was injected to show adequate spread.? The needle was inserted at level right L4-5. There was no evidence of vascular or adverse uptake.? Epidural spread was appreciated.? The above- mentioned injectate was then placed in a 1.5 mL aliquot preceded by negative aspiration.? The needle was removed. The needle was inserted and the procedure repeated at level right L5-S1.? The surgery site was covered.? Patient was taken to the postprocedural recovery area and monitored for an appropriate length of time before found suitable for discharge in the accompaniment of a responsible adult. Anesthesia: Local Surgeon: Garrison Duenas Pathology: none sent Condition: stable Disposition: no change
== END 2024-10-21 08:50 | disposition home or self-care (01) ==
LOC: SURGOUT 07:32
PROVIDERS: PCP Family Medicine; Visit Provider Anesthesiology
DX: M48.062 Spinal stenosis, lumbar region with neurogenic claudication (principal)
CPT/HCPCS: 64483; 64484; J0665; J1010; Q9966

== ENCOUNTER 2024-10-24 12:57 | Outpatient (RCR) | payer MEDICARE, SELFPAY | END 2024-11-13 07:40 | disposition home or self-care (01) | LOC: PT 12:57 | PROVIDERS: PCP Family Medicine; Visit Provider Anesthesiology Pain Medicine | DX: M48.062 Spinal stenosis, lumbar region with neurogenic claudication (principal) | CPT/HCPCS: 97110; 97112; 97140; 97162 ==

== ENCOUNTER 2024-10-30 08:26 | Outpatient (OUT) | payer MEDICARE, SELFPAY ==
--- OUTSIDE RECORDS SUMMARY | 2024-10-30 08:34 | XMS_ITS | CCD ---
Author Organization [facility] Care Team Providers Care Box Fabricator Name Role Phone PHYSICIAN, DEFAULT Unavailable Unavailable PHYSICIAN, DEFAULT Unavailable Unavailable Evonne Seo Unavailable TED CASTREJON Admitting Unavailable TED CASTREJON Attending Unavailable MARTI, DR CHEUNG Primary Care Unavailable TED CASTREJON Consulting Unavailable MARTI, DR CHEUNG Admitting Unavailable MARTI, DR CHEUNG Attending Unavailable DR SKYE BOWMAN Primary Care Unavailable MARTI, DR CHEUNG Consulting Unavailable Skye Bowman MD Primary Care Provider [phone] Henrique AMAYA, Garrison Davis Attending Unavailable Medications Current Medications Medication Drug Class(es) Dates Sig (Normalized) Sig (Original) cilostazol 100 mg oral tablet (3 sources) Phosphodiesterase 3 Inhibitor Start: 07-08-2024 take 100 mg by mouth once Cilostazol Active 100 MG PO Once July 08, 2024 12:00am Start: 11-04-2023 take 1 tablet by jose th twice daily cilostazoL (PLETAL) 100 mg tablet Indications: PVD (peripheral vascular disease) (CMS-HCC) , Claudication ([facility]) , Bilateral carotid bruits take 1 [...] INSULINon 07-16-2022 Insulin 14.3 uIU/mL Normal 2.6-24.9 [facility] Comment on above: Performed By: #### I NSULIN #### [facility] [address] [place] [address] Dr. Lemuel Serrato CBC AUTO DIFFon 07-15-2022 BASO # 0.0 103/ul Normal 0.0-0.1 [facility] Comment on above: Performed By: #### C BC #### [facility] [address] [place] [address] Dr. Lemuel Serrato Basophils/100 WBC (Bld) 0.4 % Normal 0.2-2.0 [facility] Comment on above: Performed By: #### C BC #### [facility] [address] [place] [address] Dr. Lemuel Serrato EO # 0.2 103/ul Normal 0.0-0.7 [facility] Comment on above: Performed By: #### C BC #### [facility] [address] [place] [address] Dr. Lemuel Serrato Eosinophils/100 WBC (Bld) 2.7 % Normal 0.9-7.0 [facility] Comment on above: Performed By: #### C BC #### [facility] [address] [place] [address] Dr. Lemuel Serrato Erythrocyte distribution width (RBC) [Ratio] 15.9 % Critically high 11.0-15.0 [facility] Comment on above: Performed By: #### C BC #### [facility] [address] [place] [address] Dr. Lemuel Serrato Hematocrit (Bld) [Volume fraction] 30.5 % Critically low 36.0-48.0 [facility] Comment on above: Performed By: #### C BC #### [facility] [address] [place] [address] Dr. Lemuel Serrato Hemoglobin (Bld) [Mass/Vol] 9.0 g/dL Critically low 12.0-16.0 [facility] Comment on above: Performed By: #### C BC #### [facility] [address] [place] [address] Dr. Lemuel Serrato IG # 0.03 10e3/ul Normal 0.00-0.03 [facility] Comment on above: Performed By: #### C BC #### [facility] [address] [place] [address] Dr. Lemuel Serrato IG % 0.4 % Normal 0.0-0.5 [facility] Comment on above: Performed By: #### C BC #### [facility] [address] [place] [address] Dr. Lemuel Serrato LYMPH # 3.1 103/ul Normal 1.2-3.8 [facility] Comment on above: Performed By: #### C BC #### [facility] [address] [place] [address] Dr. Lemuel Serrato Lymphocytes/100 WBC (Bld) 41.8 % Normal 20.5-60.0 [facility] Comment on above: Performed By: #### C BC #### [facility] [address] [place] [address] Dr. Lemuel Serrato MANUAL DIFF REQ NO Normal [facility] Comment on above: Performed By: #### C BC #### [facility] [address] [place] [address] Dr. Lemuel Serrato MCH (RBC) [Entitic mass] 18.9 pg Critically low 26.7-34.0 [facility] Comment on above: Performed By: #### C BC #### [facility] [address] [place] [address] Dr. Lemuel Serrato MCHC (RBC) [Mass/Vol] 29.5 g/dL Critically low 29.9-35.2 [facility] Comment on above: Performed By: #### C BC #### [facility] [address] [place] [address] Dr. Lemuel Serrato MCV (RBC) [Entitic vol] 64.2 fL Critically low 81.0-99.0 [facility] Comment on above: Performed By: #### C BC #### [facility] [address] [place] [address] Dr. Lemuel Serrato MONO # 0.7 103/ul Normal 0.3-0.8 [facility] Comment on above: Performed By: #### C BC #### [facility] [address] [place] [address] Dr. Lemuel Serrato Monocytes/100 WBC (Bld) 8.8 % Normal 1.7-12.0 [facility] Comment on above: Performed By: #### C BC #### [facility] [address] [place] [address] Dr. Lemuel Serrato NEUT # 3.4 103/ul Normal 1.4-6.5 [facility] Comment on above: Performed By: #### C BC #### [facility] [address] [place] [address] Dr. Lemuel Serrato Neutrophils/100 WBC (Bld) 45.9 % Normal 43.0-75.0 [facility] Comment on above: Performed By: #### C BC #### [facility] [address] [place] [address] Dr. Lemuel Serrato Platelet mean volume (Bld) [Entitic vol] 9.8 fL Normal 9.5-13.5 [facility] Comment on above: Performed By: #### C BC #### [facility] [address] [place] [address] Dr. Lemuel Serrato PLT 263 103/ul Normal 150-450 [facility] Comment on above: Performed By: #### C BC #### [facility] [address] [place] [address] Dr. Lemuel Serrato RBC 4.75 106/ul Normal 4.20-5.40 [facility] Comment on above: Result Comment: SLIG HT MICROCYTOSIS 1+ POIKILOCYTOSIS 1+ OVALOCYTE SLIGHT ACANTHOCYTE Performed By: #### C BC #### [facility] [address] [place] [address] Dr. Lemuel Serrato WBC 7.4 103/ul Normal 4.0-11.0 [facility] Comment on above: Performed By: #### C BC #### [facility] [address] [place] [address] Dr. Lemuel Serrato FREE THYROXINE INDEX T7on FTI 2.15 Normal 1.30-4.50 [facility] Comment on above: Performed By: #### T 7, LIPID, TSH, CMP #### [facility] [address] [place], [place] [id number] Dr. Lemuel Serrato T3U 33.0 % Normal 30.0-39.0 [facility] Comment on above: Performed By: #### T 7, LIPID, TSH, CMP #### [facility] [address] [place] [address] Dr. Lemuel Serrato T4 [Mass/Vol] 6.50 ug/dL Normal 4.80-13.90 [facility] Comment on above: Performed By: #### T 7, LIPID, TSH, CMP #### [facility] [address] [place] [address] Dr. Lemuel Serrato GLYCOHEMOGLOBIN A1Con 2021 ADA RECOMMENDATION SEE BELOW Normal [facility] Comment on above: Result Comment: ADA RECOMMENDED LIMIT 4.0 - 6.0 ADA THERAPEUTIC TARGET < 7.0 ACTION SUGGESTED > 7.0 Performed By: #### A 1C #### [facility] [address] [place] [address] Dr. Lemuel Serrato Glucose [Mass/Vol] 137 mg/dL Normal [facility] Comment on above: Performed By: #### A 1C #### [facility] [address] [place] [address] Dr. Lemuel Serrato HbA1c (Bld) [Mass fraction] 6.4 % Critically high 4.5-6.2 [facility] Comment on above: Performed By: #### A 1C #### [facility] [address] [place] [address] Dr. Lemuel Serrato IRONon 07-15-2022 Iron [Mass/Vol] 70.0 ug/dL Normal 50.0-170.0 [facility] Comment on above: Performed By: #### I MARAL #### [facility] [address] [place] [address] Dr. Lemuel Serrato LIPID PROFILEon 07-15-2022 CHOL-HDL RATIO NORM SEE BELOW Normal [facility] Comment on above: Result Comment: 3.3 - 4.4 LOW RISK 4.4 - 7.1 AVERAGE RISK 7.1 - 11.0 MODERATE RISK >11.0 HIGH RISK Performed By: #### T 7, LIPID, TSH, CMP #### [facility] [address] [address] [address] Lemuel Serrato Cholesterol [Mass/Vol] 152 mg/dL Normal <=200 [facility] Comment on above: Performed By: #### T 7, LIPID, TSH, CMP #### [facility] [address] [address] [address] Lemuel Serrato Cholesterol in HDL [Mass/Vol] 32 mg/dL Critically low 40-60 [facility] Comment on above: Performed By: #### T 7, LIPID, TSH, CMP #### [facility] [address] [address] [address] Lemuel Serrato Cholesterol in LDL [Mass/Vol] 96.8 mg/dL Normal [facility] Comment on above: Performed By: #### T 7, LIPID, TSH, CMP #### [facility] [address] [address] [address] Lemuel Serrato Cholesterol.total/Cho lesterol in HDL [Mass ratio] 4.8 {ratio} Normal [facility] Comment on above: Performed By: #### T 7, LIPID, TSH, CMP #### [facility] [address] [address] [address] Lemuel Serrato HDL NORMAL > or = 60 mg/dl - LOW CARDIOVASCULAR RISK <40 mg/dl - HIGH CARDIOVASCULAR RISK Normal [facility] Comment on above: Performed By: #### T 7, LIPID, TSH, CMP #### [facility] [address] [address] [address] Lemuel Serrato LDL CALC NORMAL SEE BELOW Normal [facility] Comment on above: Result Comment: <100 mg/dl OPTIMAL 100 - 129 mg/dl NEAR OR ABOVE OPTIMAL 130 - 159 mg/dl BORDERLINE HIGH 160 - 189 mg/dl HIGH >190 mg/dl VERY HIGH Performed By: #### T 7, LIPID, TSH, CMP #### [facility] [address] [address] [address] Lemuel Serrato Triglyceride [Mass/Vol] 116 mg/dL Normal <=150 [facility] Comment on above: Performed By: #### T 7, LIPID, TSH, CMP #### [facility] [address] [address] [address] Lemuel Serrato VLDL CALC 23.2 mg/dL Normal [facility] Comment on above: Performed By: #### T 7, LIPID, TSH, CMP #### [facility] [address] [address] [address] Lemuel Serrato PROF 14(COMP METB)on 022 Albumin [Mass/Vol] 3.5 g/dL Normal 3.4-5.0 [facility] Comment on above: Performed By: #### T 7, LIPID, TSH, CMP #### [facility] [address] [address] [address] Lemuel Serrato Albumin/Globulin [Mass ratio] 0.9 {ratio} Normal [facility] Comment on above: Performed By: #### T 7, LIPID, TSH, CMP #### [facility] [address] [address] [address] Lemuel Serrato ALP [Catalytic activity/Vol] 91 U/L Normal 46-116 [facility] Comment on above: Performed By: #### T 7, LIPID, TSH, CMP #### [facility] [address] [address] [address] Lemuel Serrato ALT [Catalytic activity/Vol] 21 U/L Normal 14-59 [facility] Comment on above: Performed By: #### T 7, LIPID, TSH, CMP #### [facility] [address] [address] [address] Lemuel Serrato Anion gap [Moles/Vol] 10.1 mmol/L Normal [facility] Comment on above: Performed By: #### T 7, LIPID, TSH, CMP #### [facility] [address] [address] [address] Lemuel Serrato AST [Catalytic activity/Vol] 10 U/L Critically low 15-37 [facility] Comment on above: Performed By: #### T 7, LIPID, TSH, CMP #### [facility] [address] [address] [address] Lemuel Serrato Bilirubin [Mass/Vol] 0.3 mg/dL Normal 0.2-1.0 [facility] Comment on above: Performed By: #### T 7, LIPID, TSH, CMP #### [facility] [address] [address] [address] Lemuel Serrato Calcium [Mass/Vol] 8.6 mg/dL Normal 8.5-10.1 [facility] Comment on above: Performed By: #### T 7, LIPID, TSH, CMP #### [facility] [address] [address] [address] Lemuel Serrato Chloride [Moles/Vol] 107 mmol/L Normal 98-107 [facility] Comment on above: Performed By: #### T 7, LIPID, TSH, CMP #### [facility] [address] [place] [address] Dr. Lemuel Serrato CO2 [Moles/Vol] 25.8 mmol/L Normal 21.0-32.0 [facility] Comment on above: Performed By: #### T 7, LIPID, TSH, CMP #### [facility] [address] [place] [address] Dr. Lemuel Serrato Creatinine [Mass/Vol] 1.20 mg/dL Critically high 0.55-1.02 [facility] Comment on above: Performed By: #### T 7, LIPID, TSH, CMP #### [facility] [address] [place] [address] Dr. Lemuel Serrato EGFR-AF FRENCH 55 mL/min/1.73m2 Critically low >=60 [facility] Comment on above: Performed By: #### T 7, LIPID, TSH, CMP #### [facility] [address] [place] [address] Dr. Lemuel Serrato EGFR-NON AF FRENCH 45 mL/min/1.73m2 Critically low >=60 [facility] Comment on above: Performed By: #### T 7, LIPID, TSH, CMP #### [facility] [address] [place] [address] Dr. Lemuel Serrato Globulin (S) [Mass/Vol] 3.9 g/dL Normal [facility] Comment on above: Performed By: #### T 7, LIPID, TSH, CMP #### [facility] [address] [address] [address] Lemuel Serrato Glucose [Mass/Vol] 96 mg/dL Normal 74-106 [facility] Comment on above: Performed By: #### T 7, LIPID, TSH, CMP #### [facility] [address] [address] [address] Lemuel Serrato Potassium [Moles/Vol] 3.9 mmol/L Normal 3.5-5.1 [facility] Comment on above: Performed By: #### T 7, LIPID, TSH, CMP #### [facility] [address] [place] [address] Dr. Lemuel Serrato Protein [Mass/Vol] 7.4 g/dL Normal 6.4-8.2 [facility] Comment on above: Performed By: #### T 7, LIPID, TSH, CMP #### [facility] [address] [place] [address] Dr. Lemuel Serrato Sodium [Moles/Vol] 139 mmol/L Normal 136-145 [facility] Comment on above: Performed By: #### T 7, LIPID, TSH, CMP #### [facility] [address] [address] [address] Lemuel Serrato Urea nitrogen [Mass/Vol] 23.0 mg/dL Critically high 7.0-18.0 [facility] Comment on above: Performed By: #### T 7, LIPID, TSH, CMP #### [facility] [address] [place] [address] Dr. Lemuel Serrato Urea nitrogen/Creatinine [Mass ratio] 19.2 mg/mg Normal [facility] Comment on above: Performed By: #### T 7, LIPID, TSH, CMP #### [facility] [address] [place] [address] Dr. Lemuel HOOKon 07-15-2022 TSH 2.220 uIU/mL Normal 0.358-3.740 [facility] Comment on above: Performed By: #### T 7, LIPID, TSH, CMP #### [facility] [address] [place] [address] Dr. Lemuel Serrato Vital Signs Date Time Vital Sign Value Performing Clinician Facility 07-08-2024 13:21-0400 Body height 165.1 cm [facility] 07-08-2024 13:21-0400 Body mass index (BMI) [Ratio] 26.1 kg/m2 [facility] 07-08-2024 13:21-0400 Body temperature 97.8 [degF] [facility] 07-08-2024 13:21-0400 Body weight 71.21 kg [facility] 07-08-2024 13:21-0400 Diastolic blood pressure 86 mm[Hg] [facility] 07-08-2024 13:21-0400 Heart rate 98 /min [facility] 07-08-2024 13:21-0400 Respiratory rate 18 /min [facility] 07-08-2024 13:21-0400 SaO2% (BldA) [Mass fraction] 97 % [facility] 07-08-2024 13:21-0400 Systolic blood pressure 163 mm[Hg] [facility] 09-07-2021 15:00-0500 Body height 165.1 cm Evonne Ginty Other [employer] [facility] [employer] Other 09-07-2021 15:00-0500 Body mass index (BMI) [Ratio] 26.62 kg/m2 Evonne Ginty Other [employer] Other 09-07-2021 15:00-0500 Body temperature 100.6 [degF] Evonne Ginty Other [employer] Other 09-07-2021 15:00-0500 Body weight 72.58 kg Evonne Ginty Other [employer] Other 09-07-2021 15:00-0500 SaO2% (BldA) [Mass fraction] 96 % Evonne Ginty Other [employer] Other Encounters Encounter Date Encounter Type Care Provider Facility Start: 10-21-2024 End: 10-21-2024 ambulatory Garrison Duenas MD Facility:[facility] Start: 07-08-2024 End: 07-08-2024 ambulatory [facility] Work Phone: Start: 07-08-2024 End: 07-08-2024 Patient encounter procedure [facility] Work Phone: Start: 11-04-2023 Refill Indu Cash MD Work Phone: [facility] Comment on above: PVD (peripheral vasc ular disease) ([facility]); Claudication ([facility]); Bilateral carotid bruits Start: 07-18-2022 Encounter for genera l adult medical examination without abnormal findings DR SKYE BOWMAN [facility] Start: 07-15-2022 End: 07-16-[address] SKYE BOWMAN Facility:[facility] Start: 07-15-2022 End: 07-16-2022 Encounter for general adult medical examination without abnormal findings DR SKYE BOWMAN Facility:[facility] Start: 06-27-2022 End: 06-28-2022 ambulatory TED CASTREJON Facility:[facility] Start: 09-07-2021 End: 09-07-2021 ambulatory Evonne Seo Other [facility] [employer] Other Start: 09-07-2021 Office outpatient vi sit 15 minutes Evonne Seo [facility] Start: 11-23-2017 End: 11-24-2017 Ambulatory DEFAULT PHYSICIAN Facility:[facility] Plan of Treatment Date Care Activity Detail Author Start: 07-22-2023 Tobacco Screening Tobacco Screening [facility] Start: 06-09-2023 Influenza vaccination Influenza Vaccine [facility] Start: 2022 Fall Risk Screening Fall Risk Screening [facility] Start: 12-29-2021 DTaP,Tdap and Td Vaccines (2 - Td or Tdap) DTaP,Tdap and Td Vaccines (2 - Td or Tdap) [facility] Start: 2007 Administration of varicella zoster vaccine Zoster (Shingles) Vaccine (1 of 2) [facility] Start: 1975 Adult BMI Screening Adult BMI Screening [facility] Start: 1969 Depression Screening Depression Screening [facility] Payers Date Payer Category Payer Medicare 1957 Unknown [id number] 1955 Unknown [id number] 1955 Unknown [id number] 1955 Unknown [id number] Medicare Medicare [id number] 3 [id number] Unknown Social History Date Type Detail Facility Start: 03-20-2019 End: 07-22-2022 Sex Assigned At [employer] Other Start: 07-22-2022 Tobacco smoking stat [facility] Smokes tobacco daily [facility] History of tobacco use Cigarette Smoker P [facility] Start: 07-22-2022 Tobacco use and exposure Smokeless tobacco non-user [facility] Start: 07-22-2022 Alcohol intake Defer [facility] Start: 03-20-2019 End: 07-22-2022 History of Social function [facility] Childcare Unknown [facility] Start: 1955 Sex Assigned At Not on file P [facility] Start: 07-08-2024 Tobacco smoking stat [facility] Smoker (finding) [facility] Start: 1955 Sex Assigned At Female F [facility] Evaluation note 09-07-2021 Note Date [...] Patient care instructions given in writting by [facility] Care At Home document [employer] Other Evaluation note Note Date & Type Note Facility Evaluation note Diagnosis PVD (peripheral vascular disease) ([facility]) Unspecified peripheral vascular disease Claudication ([facility]) Unspecified peripheral vascular disease Bilateral carotid bruits documented in this encounter [employer] Evaluation note Note Date & Type Note Facility Evaluation note Diagnosis Onset Date Contact dermatitis noneactiv e [facility] Work Phone: History general Narrative - Reported Note Date & Type Note Facility History general Narrative - Reported Type Medical History thalassemia minor [employer] Other Instructions Note Date & Type Note Facility Instructions Not on filedocumented in this en counter [employer] Summary Purpose Family History No Family History Records FoundNo Family History Records FoundNo Family History Records Found Advance Directives No Advanced Directives Records Found Advance Directive Response Recorded Date/ Time Advance Directives No June 1:13pm Chief Complaint and Reason for Visit Chief Complaint swelling/itching carrie und eyes Reason for Visit Contact dermatitis Additional Source Comments INFORMATION SOURCE (unrecogn ized section and content) DATE CREATED AUTHOR 03/30/2018 [facility] DATE CREATED AUTHOR AUTHOR'S ORGANIZ ATION 07/18/[address] [facility] DATE CREATED AUTHOR AUTHOR'S ORGANIZ ATION 10/30/2024 [facility] REASON FOR VISIT (unrecogniz ed section and content) Reason Comments Med Refill Care Teams (unrecognized sec tion and content) [employer] Relationship Specialty Start Date End Date Skye Bowman MD [address] [place] [address] PCP - General Family Medicine 06/30/22 Team Status: Active Member Role Status Dates Skye Bowman MD Primary Care Provider Active Team Status: Inactive Member Role Status Dates Skye Bowman MD Primary Care Provider Active Start: [...] BE BASED ON THE PRIMARY CLINICAL RECORDS. [facility] [employer] [facility]. provides no warranty or guarantee of the accuracy or completeness of information in this document.
--- NOTE | 2024-10-30 08:56 | P.CN_ITS ---
Consult Note: HPI Data of Consult Patient: known to practice within the last 3 years Requesting Physician: Kat Strange MD Primary Care Provider: Janes Bowman MD Consult Narrative Reason for consult: f/u Narrative: Isaura Ruiz a pleasant 69 year old female presents for evaluation and management of back and RLE pain. Pain started 08/31/24 after a long period of standing and significant activity. Pt has failed 6 weeks or PT, tylenol, NSAIDs, heat and ice. Pts imaging of lumbar spine consistent with lumbar stenosis with NC and lumbar radiculopathy. Of note pt mentions increased sensitivity, intermittent edema, and heat/cold intolerance to RLE since 08/31/24. Currently utilizing zonegran 100mg HS and PRN aleve with minimal relief without side effects. recently underwent right L4-5 L5-S1 TFESI with no improvement the day of or ongoing cc:: CC: Kat Strange MD Review of Systems ROS Status of ROS 10 or more systems reviewed and unremark able except as noted in history and below Musculoskeletal Reports: back pain and extremity pain PFSH PFSH Medical History (Updated 10/30/24 @ 08:59 by Radha Ghosh NP) Low back pain ?M54.50 - Low back pain, unspecified (ICD-10) Anemia ?D64.9 - Anemia, unspecified (ICD-10) Acid reflux ?K21.9 - Gastro-esophageal reflux disease without esophagitis (ICD-10) Smoker ?F17.200 - Nicotine dependence, unspecified, uncomplicated (ICD-10) Hypertension ?I10 - Essential (primary) hypertension (ICD-10) Surgical History History of tubal ligation ?Z98.51 - Tubal ligation status (ICD-10) H/O breast biopsy ?Z98.890 - Other specified postprocedural states (ICD-10) H/O oophorectomy Hx of cholecystectomy ?Z90.49 - Acquired absence of other specified parts of digestive tract (ICD- 10) Social History Little interest or pleasure in doing things: not at all Feeling down, depressed, or hopeless: not at all Meds Home Medications and Allergies Home Medications ?Medication ?Instructions ?Recorded ?Confirmed ?Type ascorbic acid (vitamin C) 1,000 mg 1 g PO DAILY 10/15/24 10/21/24 History tablet (Vitamin C) cilostazol 100 mg tablet mg 10/15/24 History clonidine HCl 0.1 mg tablet mg 10/15/24 History echinacea 125 mg capsule 125 mg PO DAILY 10/15/24 10/21/24 History lisinopril 10 mg tablet mg 10/15/24 History zinc 50 mg capsule 50 mg PO DAILY 10/15/24 10/21/24 History zonisamide 100 mg capsule 100 mg PO .hs 10/15/24 10/21/24 History (Zonegran) Allergies Allergy/AdvReac Type Severity Reaction Status Date / Time No Known Drug Allergies Allergy Verified 10/21/24 07:56 Exam Constitutional Documenting provider has reviewed patient's vital signs: yes Common normals: no apparent distress, oriented x3, healthy appearing, alert and well nourished General appearance: cooperative HENMT Common normals: normocephalic, hearing grossly normal bilaterally and moist oral mucous membranes Head and scalp: normocephalic Eye Common normals: PERRL Pupil: PERRL Neck & C-Spine Common normals: full ROM General: normal visual inspection Chest Common normals: inspection of chest normal Respiratory Common normals: normal respiratory effort, no retractions and no use of accessory muscles Back & Pelvis Lumbar spine/lower back: lumbar ROM normal, pain with ROM and straight leg raise positive right; ROM not limited Other: decreased sensation to right L4,5,S1 strength 4/5 in RLE 5/5 in LLE Neuro Common normals: oriented x3, CN's II-XII intact bilaterally, moves all extremities, no focal motor deficits, no sensory deficits noted and deep tendon reflexes 2+ bilaterally Sensorium/orientation: alert Motor exam: strength 5/5 throughout and no movement abnormalities noted Psych Common normals: mental status grossly normal, thought process normal, cooperative, affect normal, speech normal and activity/motor behavior normal Speech: normal speech Thought process: normal thought process Assessment and Plan Assessment and Plan (1) Lumbar stenosis with neurogenic claudication: (2) Lumbar radiculopathy: Plan right L4-5 L5-S1 TFESI under fluoroscopy with steroid rotation to dexamethasone increase zonegran 150mg HS start baclofen 5-10mg TID PRN pain continue HEP as tolerated f/u 2 weeks after injection
== END 2024-10-30 08:27 | disposition home or self-care (01) ==
LOC: PM 08:27
PROVIDERS: PCP Family Medicine; Visit Provider Anesthesiology Pain Medicine
DX: M48.062 Spinal stenosis, lumbar region with neurogenic claudication (principal); M54.16 Radiculopathy, lumbar region
CPT/HCPCS: G0463

== ENCOUNTER 2024-11-04 07:41 | Day surgery (SDC) | payer MEDICARE, SELFPAY ==
--- OUTSIDE RECORDS SUMMARY | 2024-11-04 07:45 | XMS_ITS | CCD ---
Author Organization [facility] Care Team Providers Care Paster Operator Name Role Phone PHYSICIAN, DEFAULT Unavailable Unavailable PHYSICIAN, DEFAULT Unavailable Unavailable Evonne Seo Unavailable TED CASTREJON Admitting Unavailable TED CASTREJON Attending Unavailable MARTI, DR CHEUNG Primary Care Unavailable TED CASTREJON Consulting Unavailable MARTI, DR CHEUNG Admitting Unavailable MARTI, DR CHEUNG Attending Unavailable DR SKYE BOWMAN Primary Care Unavailable MARTI, DR CHEUNG Consulting Unavailable Skye Bowman MD Primary Care Provider [phone] Henrique AMAYA, aGrrison Davis Attending Unavailable Medications Current Medications Medication [...] PVD (peripheral vascular disease) (CMS-HCC) , Claudication ([facility]) , Bilateral carotid bruits take 1 [...] 07-16-2022 Insulin 14.3 uIU/mL Normal 2.6-24.9 [facility] Comment on above: Performed By: #### I NSULIN #### [facility] [address] [place] [address] Dr. Lemuel Serrato CBC AUTO DIFFon 07-15-2022 BASO # 0.0 103/ul Normal 0.0-0.1 [facility] Comment on above: Performed By: #### C BC #### [facility] [address] [place] [address] Dr. Lemuel Serrato Basophils/100 WBC (Bld) 0.4 % Normal 0.2-2.0 [facility] Comment on above: Performed By: #### C BC #### [facility] [address] [place] [address] Dr. Lemuel Serrato EO # 0.2 103/ul Normal 0.0-0.7 [facility] Comment on above: Performed By: #### C BC #### [facility] [address] [place] [address] Dr. Lemuel Serrato Eosinophils/100 WBC (Bld) 2.7 % Normal 0.9-7.0 [facility] Comment on above: Performed By: #### C BC #### [facility] [address] [place] [address] Dr. Lemuel Serrato Erythrocyte distribution width (RBC) [Ratio] 15.9 % Critically high 11.0-15.0 [facility] Comment on above: Performed By: #### C BC #### [facility] [address] [place] [address] Dr. Lemuel Serrato Hematocrit (Bld) [Volume fraction] 30.5 % Critically low 36.0-48.0 [facility] Comment on above: Performed By: #### C BC #### [facility] [address] [place] [address] Dr. Lemuel Serrato Hemoglobin (Bld) [Mass/Vol] 9.0 g/dL Critically low 12.0-16.0 [facility] Comment on above: Performed By: #### C BC #### [facility] [address] [place] [address] Dr. Lemuel Serrato IG # 0.03 10e3/ul Normal 0.00-0.03 [facility] Comment on above: Performed By: #### C BC #### [facility] [address] [place] [address] Dr. Lemuel Serrato IG % 0.4 % Normal 0.0-0.5 [facility] Comment on above: Performed By: #### C BC #### [facility] [address] [place] [address] Dr. Lemuel Serrato LYMPH # 3.1 103/ul Normal 1.2-3.8 [facility] Comment on above: Performed By: #### C BC #### [facility] [address] [place] [address] Dr. Lemuel Serrato Lymphocytes/100 WBC (Bld) 41.8 % Normal 20.5-60.0 [facility] Comment on above: Performed By: #### C BC #### [facility] [address] [place] [address] Dr. Lemuel Serrato MANUAL DIFF REQ NO Normal [facility] Comment on above: Performed By: #### C BC #### [facility] [address] [place] [address] Dr. Lemuel Serrato MCH (RBC) [Entitic mass] 18.9 pg Critically low 26.7-34.0 [facility] Comment on above: Performed By: #### C BC #### [facility] [address] [place] [address] Dr. Lemuel Serrato MCHC (RBC) [Mass/Vol] 29.5 g/dL Critically low 29.9-35.2 [facility] Comment on above: Performed By: #### C BC #### [facility] [address] [place] [address] Dr. Lemuel Serrato MCV (RBC) [Entitic vol] 64.2 fL Critically low 81.0-99.0 [facility] Comment on above: Performed By: #### C BC #### [facility] [address] [place] [address] Dr. Lemuel Serrato MONO # 0.7 103/ul Normal 0.3-0.8 [facility] Comment on above: Performed By: #### C BC #### [facility] [address] [place] [address] Dr. Lemuel Serrato Monocytes/100 WBC (Bld) 8.8 % Normal 1.7-12.0 [facility] Comment on above: Performed By: #### C BC #### [facility] [address] [place] [address] Dr. Lemuel Serrato NEUT # 3.4 103/ul Normal 1.4-6.5 [facility] Comment on above: Performed By: #### C BC #### [facility] [address] [place] [address] Dr. Lemuel Serrato Neutrophils/100 WBC (Bld) 45.9 % Normal 43.0-75.0 [facility] Comment on above: Performed By: #### C BC #### [facility] [address] [place] [address] Dr. Lemuel Serrato Platelet mean volume (Bld) [Entitic vol] 9.8 fL Normal 9.5-13.5 [facility] Comment on above: Performed By: #### C BC #### [facility] [address] [place] [address] Dr. Lemuel Serrato PLT 263 103/ul Normal 150-450 [facility] Comment on above: Performed By: #### C BC #### [facility] [address] [place] [address] Dr. Lemuel Serrato RBC 4.75 106/ul Normal 4.20-5.40 [facility] Comment on above: Result Comment: SLIG HT MICROCYTOSIS 1+ POIKILOCYTOSIS 1+ OVALOCYTE SLIGHT ACANTHOCYTE Performed By: #### C BC #### [facility] [address] [place] [address] Dr. Lemuel Serrato WBC 7.4 103/ul Normal 4.0-11.0 [facility] Comment on above: Performed By: #### C BC #### [facility] [address] [place] [address] Dr. Lemuel Serrato FREE THYROXINE INDEX T7on FTI 2.15 Normal 1.30-4.50 [facility] Comment on above: Performed By: #### T 7, LIPID, TSH, CMP #### [facility] [address] [place], [place] [id number] Dr. Lemuel Serrato T3U 33.0 % Normal 30.0-39.0 [facility] Comment on above: Performed By: #### T 7, LIPID, TSH, CMP #### [facility] [address] [place] [address] Dr. Lemuel Serrato T4 [Mass/Vol] 6.50 ug/dL Normal 4.80-13.90 [facility] Comment on above: Performed By: #### T 7, LIPID, TSH, CMP #### [facility] [address] [place] [address] Dr. Lemuel Serrato GLYCOHEMOGLOBIN A1Con 2021 ADA RECOMMENDATION SEE BELOW Normal [facility] Comment on above: Result Comment: ADA RECOMMENDED LIMIT 4.0 - 6.0 ADA THERAPEUTIC TARGET < 7.0 ACTION SUGGESTED > 7.0 Performed By: #### A 1C #### [facility] [address] [place] [address] Dr. Lemuel Serrato Glucose [Mass/Vol] 137 mg/dL Normal [facility] Comment on above: Performed By: #### A 1C #### [facility] [address] [place] [address] Dr. Lemuel Serrato HbA1c (Bld) [Mass fraction] 6.4 % Critically high 4.5-6.2 [facility] Comment on above: Performed By: #### A 1C #### [facility] [address] [place] [address] Dr. Lemuel Serrato IRONon 07-15-2022 Iron [Mass/Vol] 70.0 ug/dL Normal 50.0-170.0 [facility] Comment on above: Performed By: #### I MARAL #### [facility] [address] [place] [address] Dr. Lemuel Serrato LIPID PROFILEon 07-15-2022 CHOL-HDL RATIO NORM SEE BELOW Normal [facility] Comment on above: Result Comment: 3.3 - 4.4 LOW RISK 4.4 - 7.1 AVERAGE RISK 7.1 - 11.0 MODERATE RISK >11.0 HIGH RISK Performed By: #### T 7, LIPID, TSH, CMP #### [facility] [address] [address] [address] Lemuel Serrato Cholesterol [Mass/Vol] 152 mg/dL Normal <=200 [facility] Comment on above: Performed By: #### T 7, LIPID, TSH, CMP #### [facility] [address] [address] [address] Leumel Serrato Cholesterol in HDL [Mass/Vol] 32 mg/dL Critically low 40-60 [facility] Comment on above: Performed By: #### T 7, LIPID, TSH, CMP #### [facility] [address] [address] [address] Lemuel Serrato Cholesterol in LDL [Mass/Vol] 96.8 mg/dL Normal [facility] Comment on above: Performed By: #### T 7, LIPID, TSH, CMP #### [facility] [address] [address] [address] Lemuel Serrato Cholesterol.total/Cho lesterol in HDL [Mass ratio] 4.8 {ratio} Normal [facility] Comment on above: Performed By: #### T 7, LIPID, TSH, CMP #### [facility] [address] [address] [address] Lemuel Serrato HDL NORMAL > or = 60 mg/dl - LOW CARDIOVASCULAR RISK <40 mg/dl - HIGH CARDIOVASCULAR RISK Normal [facility] Comment on above: Performed By: #### T 7, LIPID, TSH, CMP #### [facility] [address] [address] [address] Lemuel Serrato LDL CALC NORMAL SEE BELOW Normal [facility] Comment on above: Result Comment: <100 mg/dl OPTIMAL 100 - 129 mg/dl NEAR OR ABOVE OPTIMAL 130 - 159 mg/dl BORDERLINE HIGH 160 - 189 mg/dl HIGH >190 mg/dl VERY HIGH Performed By: #### T 7, LIPID, TSH, CMP #### [facility] [address] [address] [address] Lemuel Serrato Triglyceride [Mass/Vol] 116 mg/dL Normal <=150 [facility] Comment on above: Performed By: #### T 7, LIPID, TSH, CMP #### [facility] [address] [address] [address] Lemuel Serrato VLDL CALC 23.2 mg/dL Normal [facility] Comment on above: Performed By: #### T 7, LIPID, TSH, CMP #### [facility] [address] [address] [address] Lemuel Serrato PROF 14(COMP METB)on 022 Albumin [Mass/Vol] 3.5 g/dL Normal 3.4-5.0 [facility] Comment on above: Performed By: #### T 7, LIPID, TSH, CMP #### [facility] [address] [address] [address] Lemuel Serrato Albumin/Globulin [Mass ratio] 0.9 {ratio} Normal [facility] Comment on above: Performed By: #### T 7, LIPID, TSH, CMP #### [facility] [address] [address] [address] Lemuel Serrato ALP [Catalytic activity/Vol] 91 U/L Normal 46-116 [facility] Comment on above: Performed By: #### T 7, LIPID, TSH, CMP #### [facility] [address] [address] [address] Lemuel Serrato ALT [Catalytic activity/Vol] 21 U/L Normal 14-59 [facility] Comment on above: Performed By: #### T 7, LIPID, TSH, CMP #### [facility] [address] [address] [address] Lemuel Serrato Anion gap [Moles/Vol] 10.1 mmol/L Normal [facility] Comment on above: Performed By: #### T 7, LIPID, TSH, CMP #### [facility] [address] [address] [address] Lemuel Serrato AST [Catalytic activity/Vol] 10 U/L Critically low 15-37 [facility] Comment on above: Performed By: #### T 7, LIPID, TSH, CMP #### [facility] [address] [address] [address] Lemuel Serrato Bilirubin [Mass/Vol] 0.3 mg/dL Normal 0.2-1.0 [facility] Comment on above: Performed By: #### T 7, LIPID, TSH, CMP #### [facility] [address] [address] [address] Lemuel Serrato Calcium [Mass/Vol] 8.6 mg/dL Normal 8.5-10.1 [facility] Comment on above: Performed By: #### T 7, LIPID, TSH, CMP #### [facility] [address] [address] [address] Lemuel Serrato Chloride [Moles/Vol] 107 mmol/L Normal 98-107 [facility] Comment on above: Performed By: #### T 7, LIPID, TSH, CMP #### [facility] [address] [place] [address] Dr. Lemuel Serrato CO2 [Moles/Vol] 25.8 mmol/L Normal 21.0-32.0 [facility] Comment on above: Performed By: #### T 7, LIPID, TSH, CMP #### [facility] [address] [place] [address] Dr. Lemuel Serrato Creatinine [Mass/Vol] 1.20 mg/dL Critically high 0.55-1.02 [facility] Comment on above: Performed By: #### T 7, LIPID, TSH, CMP #### [facility] [address] [place] [address] Dr. Lemuel Serrato EGFR-AF BRAZILIAN 55 mL/min/1.73m2 Critically low >=60 [facility] Comment on above: Performed By: #### T 7, LIPID, TSH, CMP #### [facility] [address] [place] [address] Dr. Lemuel Serrato EGFR-NON AF BRAZILIAN 45 mL/min/1.73m2 Critically low >=60 [facility] Comment on above: Performed By: #### T 7, LIPID, TSH, CMP #### [facility] [address] [place] [address] Dr. Lemuel Serrato Globulin (S) [Mass/Vol] 3.9 g/dL Normal [facility] Comment on above: Performed By: #### T 7, LIPID, TSH, CMP #### [facility] [address] [address] [address] Lemuel Serrato Glucose [Mass/Vol] 96 mg/dL Normal 74-[address] [facility] Comment on above: Performed By: #### T 7, LIPID, TSH, CMP #### [facility] [address] [address] [address] Lemuel Serrato Potassium [Moles/Vol] 3.9 mmol/L Normal 3.5-5.1 [facility] Comment on above: Performed By: #### T 7, LIPID, TSH, CMP #### [facility] [address] [place] [address] Dr. Lemuel Serrato Protein [Mass/Vol] 7.4 g/dL Normal 6.4-8.[address] [facility] Comment on above: Performed By: #### T 7, LIPID, TSH, CMP #### [facility] [address] [place] [address] Dr. Lemuel Serrato Sodium [Moles/Vol] 139 mmol/L Normal 136-[address] [facility] Comment on above: Performed By: #### T 7, LIPID, TSH, CMP #### [facility] [address] [address] [address] Lemuel Serrato Urea nitrogen [Mass/Vol] 23.0 mg/dL Critically high 7.0-18.0 [facility] Comment on above: Performed By: #### T 7, LIPID, TSH, CMP #### [facility] [address] [place] [address] Dr. Lemuel Serrato Urea nitrogen/Creatinine [Mass ratio] 19.2 mg/mg Normal [facility] Comment on above: Performed By: #### T 7, LIPID, TSH, CMP #### [facility] [address] [place] [address] Dr. Lemuel HOOKon 07-15-2022 TSH 2.220 uIU/mL Normal 0.358-3.740 [facility] Comment on above: Performed By: #### T 7, LIPID, TSH, CMP #### [facility] [address] [place] [address] Dr. Lemuel Serrato Vital Signs Date Time Vital Sign Value Performing Clinician Facility 07-08-2024 13:21-0400 Body height 165.1 cm [facility] 07-08-2024 13:21-0400 Body mass index (BMI) [Ratio] 26.1 kg/m2 [facility] 07-08-2024 13:21-0400 Body temperature 97.8 [degF] [facility] 07-08-2024 13:21-0400 Body weight 71.21 kg [facility] 07-08-2024 13:21-0400 Diastolic blood pressure 86 mm[Hg] [facility] 07-08-2024 13:21-0400 Heart rate 98 /min [facility] 07-08-2024 13:21-0400 Respiratory rate 18 /min [facility] 07-08-2024 13:21-0400 SaO2% (BldA) [Mass fraction] 97 % [facility] 07-08-2024 13:21-0400 Systolic blood pressure 163 mm[Hg] [facility] 09-07-2021 15:00-0500 Body height 165.1 cm Evonne Ginty Other [employer] [facility] [employer] Other 09-07-2021 15:00-0500 Body mass index (BMI) [Ratio] 26.62 kg/m2 Evonne Ginty Other [employer] Other 09-07-2021 15:00-0500 Body temperature 100.6 [degF] Evonne Ginty Other [employer] Other 09-07-2021 15:00-0500 Body weight 72.58 kg Evonne Ginty Other [employer] Other 09-07-2021 15:00-0500 SaO2% (BldA) [Mass fraction] 96 % Evonne Ginty Other [employer] Other Encounters Encounter Date Encounter Type Care Provider Facility Start: 10-21-2024 End: 10-21-2024 ambulatory Garrison Duenas MD Facility:[facility] Start: 07-08-2024 End: 07-08-2024 ambulatory [facility] Work Phone: Start: 07-08-2024 End: 07-08-2024 Patient encounter procedure [facility] Work Phone: Start: 11-04-2023 Refill Indu Cash MD Work Phone: [facility] Comment on above: PVD (peripheral vasc ular disease) ([facility]); Claudication ([facility]); Bilateral carotid bruits Start: 07-18-2022 Encounter for genera l adult medical examination without abnormal findings DR SKYE BOWMAN [facility] Start: 07-15-2022 End: 07-16-[address] SKYE BOWMAN Facility:[facility] Start: 07-15-2022 End: 07-16-2022 Encounter for general adult medical examination without abnormal findings DR SKYE BOWMAN Facility:[facility] Start: 06-27-2022 End: 06-28-2022 ambulatory TED CASTREJON Facility:[facility] Start: 09-07-2021 End: 09-07-2021 ambulatory Evonne Seo Other [facility] [employer] Other Start: 09-07-2021 Office outpatient vi sit 15 minutes Evonne Seo [facility] Start: 11-23-2017 End: 11-24-2017 Ambulatory DEFAULT PHYSICIAN Facility:[facility] Plan of Treatment Date Care Activity Detail Author Start: 07-22-2023 Tobacco Screening Tobacco Screening [facility] Start: 06-09-2023 Influenza vaccination Influenza Vaccine [facility] Start: 2022 Fall Risk Screening Fall Risk Screening [facility] Start: 12-29-2021 DTaP,Tdap and Td Vaccines (2 - Td or Tdap) DTaP,Tdap and Td Vaccines (2 - Td or Tdap) [facility] Start: 2007 Administration of varicella zoster vaccine Zoster (Shingles) Vaccine (1 of 2) [facility] Start: 1975 Adult BMI Screening Adult BMI Screening [facility] Start: 1969 Depression Screening Depression Screening [facility] Payers Date Payer Category Payer Medicare 1957 Unknown [id number] 1955 Unknown [id number] 1955 Unknown [id number] 1955 Unknown [id number] Medicare Medicare [id number] Unknown Social History Date Type Detail Facility Start: 03-20-2019 End: 07-22-2022 Sex Assigned At [employer] Other Start: 07-22-2022 Tobacco smoking stat [facility] Smokes tobacco daily [facility] History of tobacco use Cigarette Smoker P [facility] Start: 07-22-2022 Tobacco use and exposure Smokeless tobacco non-user [facility] Start: 07-22-2022 Alcohol intake Defer [facility] Start: 03-20-2019 End: 07-22-2022 History of Social function [facility] Childcare Unknown [facility] Start: 1955 Sex Assigned At Not on file P [facility] Start: 07-08-2024 Tobacco smoking stat [facility] Smoker (finding) [facility] Start: 1955 Sex Assigned At Female F [facility] Evaluation note 09-07-2021 Note Date & Type [...] Patient care instructions given in writting by [facility] Care At Home document [employer] Other Evaluation note Note Date & Type Note Facility Evaluation note Diagnosis PVD (peripheral vascular disease) ([facility]) Unspecified peripheral vascular disease Claudication ([facility] [place] Unspecified peripheral vascular disease Bilateral carotid bruits documented in this encounter [facility] [employer] Evaluation note Note Date & Type Note Facility Evaluation note Diagnosis Onset Date Contact dermatitis noneactiv e [facility] Work Phone: History general Narrative - Reported Note Date & Type Note Facility History general Narrative - Reported Type Medical History thalassemia minor [employer] Other Instructions Note Date & Type Note Facility Instructions Not on filedocumented in this en counter [employer] [facility] Summary Purpose Family History No Family [...] section and content) DATE CREATED AUTHOR 03/30/2018 [facility] DATE CREATED AUTHOR AUTHOR'S ORGANIZ ATION 07/18/2022 [facility] DATE CREATED AUTHOR AUTHOR'S ORGANIZ ATION 10/30/2024 [facility] REASON FOR VISIT (unrecogniz ed section and content) Reason Comments Med Refill Care Teams (unrecognized sec tion and content) Paster Operator Relationship Specialty Start Date End Date Skye Bowman MD [address] [place] [address] PCP - General Family Medicine 06/30/22 Team [...] BE BASED ON THE PRIMARY CLINICAL RECORDS. [facility] [facility]. provides no warranty or guarantee of the accuracy or completeness of information in this document.
[2024-11-04 08:01] VITALS: BP 149/79; PULSE 61; TEMP 36.5; O2SAT 100
[2024-11-04 08:45] VITALS: BP 158/72; BP 162/69; PULSE 64; PULSE 70; O2SAT 100; O2SAT 99
--- NOTE | 2024-11-04 08:49 | P.ON_ITS ---
Date of procedure: 11/04/24 Pre-op diagnosis: Pain due to lumbar stenosis with neurogenic claudication Post-op diagnosis: same as pre-op Procedure: Procedure: Right L4-5, L5-S1 transforaminal epidural steroid injection Medications: Bupivacaine 0.25% 2cc, lidocaine 2% 1cc, depomedrol 80mg The patient was seen and examined in the preoperative holding area.? Informed consent was obtained and placed on the chart.? Patient was brought to the medical procedure unit and placed in the prone position where a timeout was completed verifying the correct patient, procedure site, position, and planned special equipment using sterile aseptic technique.? Under direct fluoroscopic visualization a 25-gauge Quincke tipped spinal needle was advanced to the designated neural foramen where contrast dye was injected to show adequate spread.? The needle was inserted at level right L4-5. There was no evidence of vascular or adverse uptake.? Epidural spread was appreciated.? The above- mentioned injectate was then placed in a 1.5 mL aliquot preceded by negative aspiration.? The needle was removed. The needle was inserted and the procedure repeated at level right L5-S1.? The surgery site was covered.? Patient was taken to the postprocedural recovery area and monitored for an appropriate length of time before found suitable for discharge in the accompaniment of a responsible adult. Anesthesia: Local Surgeon: Garrison Duenas Pathology: none sent Condition: stable Disposition: no change
[2024-11-04] MEDS: DEXAMETHASONE SOD PHOS 10 MG/ML VIAL INJ (08:50)
[2024-11-04] MEDS: 0.9 % SODIUM CHLORIDE 10 ML SYRINGE - SALINE FLUSH INJ (08:50)
[2024-11-04] MEDS: IOHEXOL 240 MG/ML - 10 ML VIAL 12 MG INJ (08:51)
[2024-11-04] MEDS: LIDOCAINE HCL 2% 400 MG/20 ML MDV INJ (08:51)
[2024-11-04] MEDS: BUPIVACAINE HCL 0.25% PF 25 MG/10 ML VIAL INJ (08:51)
== END 2024-11-04 08:54 | disposition home or self-care (01) ==
PROVIDERS: PCP Family Medicine; Visit Provider Anesthesiology
DX: M48.062 Spinal stenosis, lumbar region with neurogenic claudication (principal)
CPT/HCPCS: 64483; 64484; J0665; J1100; Q9966

== ENCOUNTER 2024-11-13 08:05 | Outpatient (OUT) | payer MEDICARE, SELFPAY ==
--- OUTSIDE RECORDS SUMMARY | 2024-11-13 08:12 | XMS_ITS | CCD ---
Author Organization [facility] Care Team Providers Care Cnc Cutting Operator Name Role Phone PHYSICIAN, DEFAULT Unavailable Unavailable PHYSICIAN, DEFAULT Unavailable Unavailable Evonne Seo Unavailable TED CASTREJON Admitting Unavailable TED CASTREJON Attending Unavailable MARTI, DR CHEUNG Primary Care Unavailable TED CASTREJON Consulting Unavailable MARTI, DR CHEUNG Admitting Unavailable MARTI, DR CHEUNG Attending Unavailable MARTI, DR CHEUNG Primary Care Unavailable MARTI, DR CHEUNG Consulting Unavailable Skye Kidd MD Primary Care Provider [phone] Henrique AMAYA, Garrison Davis Attending Unavailable Henrique AMAYA, Garrison Davis Attending Unavailable Medications [...] PVD (peripheral vascular disease) (CMS-HCC) , Claudication ([facility]) , Bilateral carotid bruits take 1 [...] 07-16-2022 Insulin 14.3 uIU/mL Normal 2.6-24.9 [facility] Comment on above: Performed By: #### I NSULIN #### [facility] [address] [place], [place] [id number] Dr. Lemuel Serrato CBC AUTO DIFFon 07-15-2022 BASO # 0.0 103/ul Normal 0.0-0.1 [facility] Comment on above: Performed By: #### C BC #### [facility] [address] [place] [address] Dr. Lemuel Serrato Basophils/100 WBC (Bld) 0.4 % Normal 0.2-2.0 [facility] Comment on above: Performed By: #### C BC #### [facility] [address] [place] [address] Dr. Lemuel Serrato EO # 0.2 103/ul Normal 0.0-0.7 [facility] Comment on above: Performed By: #### C BC #### [facility] [address] [place] [address] Dr. Lemuel Serrato Eosinophils/100 WBC (Bld) 2.7 % Normal 0.9-7.0 [facility] Comment on above: Performed By: #### C BC #### [facility] [address] [place] [address] Dr. Lemuel Serrato Erythrocyte distribution width (RBC) [Ratio] 15.9 % Critically high 11.0-15.0 [facility] Comment on above: Performed By: #### C BC #### [facility] [address] [place] [address] Dr. Lemuel Serrato Hematocrit (Bld) [Volume fraction] 30.5 % Critically low 36.0-48.0 [facility] Comment on above: Performed By: #### C BC #### [facility] [address] [place] [address] Dr. Lemuel Serrato Hemoglobin (Bld) [Mass/Vol] 9.0 g/dL Critically low 12.0-16.0 [facility] Comment on above: Performed By: #### C BC #### [facility] [address] [place] [address] Dr. Lemuel Serrato IG # 0.03 10e3/ul Normal 0.00-0.03 [facility] Comment on above: Performed By: #### C BC #### [facility] [address] [address] [address] Lemuel Serrato IG % 0.4 % Normal 0.0-0.5 [facility] Comment on above: Performed By: #### C BC #### [facility] [address] [place] [address] Dr. Lemuel Serrato LYMPH # 3.1 103/ul Normal 1.2-3.8 [facility] Comment on above: Performed By: #### C BC #### [facility] [address] [place] [address] Dr. Lemuel Serrato Lymphocytes/100 WBC (Bld) 41.8 % Normal 20.5-60.0 [facility] Comment on above: Performed By: #### C BC #### [facility] [address] [place] [address] Dr. Lemuel Serrato MANUAL DIFF REQ NO Normal [facility] Comment on above: Performed By: #### C BC #### [facility] [address] [place] [address] Dr. Lemuel Serrato MCH (RBC) [Entitic mass] 18.9 pg Critically low 26.7-34.0 [facility] Comment on above: Performed By: #### C BC #### [facility] [address] [place] [address] Dr. Lemuel Serrato MCHC (RBC) [Mass/Vol] 29.5 g/dL Critically low 29.9-35.2 [facility] Comment on above: Performed By: #### C BC #### [facility] [address] [place] [address] Dr. Lemuel Serrato MCV (RBC) [Entitic vol] 64.2 fL Critically low 81.0-99.0 [facility] Comment on above: Performed By: #### C BC #### [facility] [address] [place] [address] Dr. Lemuel Serrato MONO # 0.7 103/ul Normal 0.3-0.8 [facility] Comment on above: Performed By: #### C BC #### [facility] [address] [place] [address] Dr. Lemuel Serrato Monocytes/100 WBC (Bld) 8.8 % Normal 1.7-12.0 [facility] Comment on above: Performed By: #### C BC #### [facility] [address] [address] [address] Lemuel Serrato NEUT # 3.4 103/ul Normal 1.4-6.5 [facility] Comment on above: Performed By: #### C BC #### [facility] [address] [address] [address] Lemuel Serrato Neutrophils/100 WBC (Bld) 45.9 % Normal 43.0-75.0 [facility] Comment on above: Performed By: #### C BC #### [facility] [address] [place] [address] Dr. Lemuel Serrato Platelet mean volume (Bld) [Entitic vol] 9.8 fL Normal 9.5-13.5 [facility] Comment on above: Performed By: #### C BC #### [facility] [address] [place] [address] Dr. Lemuel Serrato PLT 263 103/ul Normal 150-450 [facility] Comment on above: Performed By: #### C BC #### [facility] [address] [place] [address] Dr. Lemuel Serrato RBC 4.75 106/ul Normal 4.20-5.40 [facility] Comment on above: Result Comment: SLIG HT MICROCYTOSIS 1+ POIKILOCYTOSIS 1+ OVALOCYTE SLIGHT ACANTHOCYTE Performed By: #### C BC #### [facility] [address] [place] [address] Dr. Lemuel Serrato WBC 7.4 103/ul Normal 4.0-11.0 [facility] Comment on above: Performed By: #### C BC #### [facility] [address] [place] [address] Dr. Lemuel Serrato FREE THYROXINE INDEX T7on FTI 2.15 Normal 1.30-4.50 [facility] Comment on above: Performed By: #### T 7, LIPID, TSH, CMP #### [facility] [address] [address] [address] Lemuel Serrato T3U 33.0 % Normal 30.0-39.0 [facility] Comment on above: Performed By: #### T 7, LIPID, TSH, CMP #### [facility] [address] [address] [address] Lemuel Serrato T4 [Mass/Vol] 6.50 ug/dL Normal 4.80-13.90 [facility] Comment on above: Performed By: #### T 7, LIPID, TSH, CMP #### [facility] [address] [address] [address] Lemuel Serrato GLYCOHEMOGLOBIN A1Con 2021 ADA RECOMMENDATION SEE BELOW Normal [facility] Comment on above: Result Comment: ADA RECOMMENDED LIMIT 4.0 - 6.0 ADA THERAPEUTIC TARGET < 7.0 ACTION SUGGESTED > 7.0 Performed By: #### A 1C #### [facility] [address] [address] [address] Lemuel Serrato Glucose [Mass/Vol] 137 mg/dL Normal [facility] Comment on above: Performed By: #### A 1C #### [facility] [address] [place] [address] Dr. Lemuel Serrato HbA1c (Bld) [Mass fraction] 6.4 % Critically high 4.5-6.2 [facility] Comment on above: Performed By: #### A 1C #### [facility] [address] [place] [address] Dr. Lemuel Serrato IRONon 07-15-2022 Iron [Mass/Vol] 70.0 ug/dL Normal 50.0-170.0 [facility] Comment on above: Performed By: #### I MARAL #### [facility] [address] [place] [address] Dr. Lemuel Serrato LIPID PROFILEon 07-15-2022 CHOL-HDL RATIO NORM SEE BELOW Normal [facility] Comment on above: Result Comment: 3.3 - 4.4 LOW RISK 4.4 - 7.1 AVERAGE RISK 7.1 - 11.0 MODERATE RISK >11.0 HIGH RISK Performed By: #### T 7, LIPID, TSH, CMP #### [facility] [address] [address] [address] Lemuel Serrato Cholesterol [Mass/Vol] 152 mg/dL Normal <=200 [facility] Comment on above: Performed By: #### T 7, LIPID, TSH, CMP #### [facility] [address] [address] [address] Lemuel Serrato Cholesterol in HDL [Mass/Vol] 32 mg/dL Critically low 40-60 [facility] Comment on above: Performed By: #### T 7, LIPID, TSH, CMP #### [facility] [address] [address] [address] Lemuel Serrato Cholesterol in LDL [Mass/Vol] 96.8 mg/dL Normal [facility] Comment on above: Performed By: #### T 7, LIPID, TSH, CMP #### [facility] [address] [address] [address] Lemuel Serrato Cholesterol.total/Cho lesterol in HDL [Mass ratio] 4.8 {ratio} Normal [facility] Comment on above: Performed By: #### T 7, LIPID, TSH, CMP #### [facility] [address] [address] [address] Lemuel Serrato HDL NORMAL > or = 60 mg/dl - LOW CARDIOVASCULAR RISK <40 mg/dl - HIGH CARDIOVASCULAR RISK Normal [facility] Comment on above: Performed By: #### T 7, LIPID, TSH, CMP #### [facility] [address] [address] [address] Lemuel Serrato LDL CALC NORMAL SEE BELOW Normal [facility] Comment on above: Result Comment: <100 mg/dl OPTIMAL 100 - 129 mg/dl NEAR OR ABOVE OPTIMAL 130 - 159 mg/dl BORDERLINE HIGH 160 - 189 mg/dl HIGH >190 mg/dl VERY HIGH Performed By: #### T 7, LIPID, TSH, CMP #### [facility] [address] [address] [address] Lemuel Serrato Triglyceride [Mass/Vol] 116 mg/dL Normal <=150 [facility] Comment on above: Performed By: #### T 7, LIPID, TSH, CMP #### [facility] [address] [address] [address] Lemuel Serrato VLDL CALC 23.2 mg/dL Normal [facility] Comment on above: Performed By: #### T 7, LIPID, TSH, CMP #### [facility] [address] [place] [address] Dr. Lemuel Serrato PROF 14(COMP METB)on 022 Albumin [Mass/Vol] 3.5 g/dL Normal 3.4-5.0 [facility] Comment on above: Performed By: #### T 7, LIPID, TSH, CMP #### [facility] [address] [place] [address] Dr. Lemuel Serrato Albumin/Globulin [Mass ratio] 0.9 {ratio} Normal [facility] Comment on above: Performed By: #### T 7, LIPID, TSH, CMP #### [facility] [address] [place] [address] Dr. Lemuel Serrato ALP [Catalytic activity/Vol] 91 U/L Normal 46-116 [facility] Comment on above: Performed By: #### T 7, LIPID, TSH, CMP #### [facility] [address] [place] [address] Dr. Lemuel Serrato ALT [Catalytic activity/Vol] 21 U/L Normal 14-59 [facility] Comment on above: Performed By: #### T 7, LIPID, TSH, CMP #### [facility] [address] [place] [address] Dr. Lemuel Serrato Anion gap [Moles/Vol] 10.1 mmol/L Normal [facility] Comment on above: Performed By: #### T 7, LIPID, TSH, CMP #### [facility] [address] [place] [address] Dr. Lemuel Serrato AST [Catalytic activity/Vol] 10 U/L Critically low 15-37 [facility] Comment on above: Performed By: #### T 7, LIPID, TSH, CMP #### [facility] [address] [place] [address] Dr. Lemuel Serrato Bilirubin [Mass/Vol] 0.3 mg/dL Normal 0.2-1.0 [facility] Comment on above: Performed By: #### T 7, LIPID, TSH, CMP #### [facility] [address] [address] [address] Lemuel Serrato Calcium [Mass/Vol] 8.6 mg/dL Normal 8.5-10.1 [facility] Comment on above: Performed By: #### T 7, LIPID, TSH, CMP #### [facility] [address] [address] [address] Lemuel Serrato Chloride [Moles/Vol] 107 mmol/L Normal 98-107 [facility] Comment on above: Performed By: #### T 7, LIPID, TSH, CMP #### [facility] [address] [place] [address] Dr. Lemuel Serrato CO2 [Moles/Vol] 25.8 mmol/L Normal 21.0-32.0 [facility] Comment on above: Performed By: #### T 7, LIPID, TSH, CMP #### [facility] [address] [place] [address] Dr. Lemuel Serrato Creatinine [Mass/Vol] 1.20 mg/dL Critically high 0.55-1.02 [facility] Comment on above: Performed By: #### T 7, LIPID, TSH, CMP #### [facility] [address] [place] [address] Dr. Lemuel Serrato EGFR-AF COMORAN 55 mL/min/1.73m2 Critically low >=60 [facility] Comment on above: Performed By: #### T 7, LIPID, TSH, CMP #### [facility] [address] [place] [address] Dr. Lemuel Serrato EGFR-NON AF COMORAN 45 mL/min/1.73m2 Critically low >=60 [facility] Comment on above: Performed By: #### T 7, LIPID, TSH, CMP #### [facility] [address] [place] [address] Dr. Lemuel Serrato Globulin (S) [Mass/Vol] 3.9 g/dL Normal [facility] Comment on above: Performed By: #### T 7, LIPID, TSH, CMP #### [facility] [address] [address] [address] Lemuel Serrato Glucose [Mass/Vol] 96 mg/dL Normal 74-106 [facility] Comment on above: Performed By: #### T 7, LIPID, TSH, CMP #### [facility] [address] [address] [address] Lemuel Serrato Potassium [Moles/Vol] 3.9 mmol/L Normal 3.5-5.1 [facility] Comment on above: Performed By: #### T 7, LIPID, TSH, CMP #### [facility] [address] [address] [address] Lemuel Serrato Protein [Mass/Vol] 7.4 g/dL Normal 6.4-8.2 [facility] Comment on above: Performed By: #### T 7, LIPID, TSH, CMP #### [facility] [address] [address] [address] Lemuel Serrato Sodium [Moles/Vol] 139 mmol/L Normal 136-145 [facility] Comment on above: Performed By: #### T 7, LIPID, TSH, CMP #### [facility] [address] [address] [address] Lemuel Serrato Urea nitrogen [Mass/Vol] 23.0 mg/dL Critically high 7.0-18.0 [facility] Comment on above: Performed By: #### T 7, LIPID, TSH, CMP #### [facility] [address] [place] [address] Dr. Lemuel Serrato Urea nitrogen/Creatinine [Mass ratio] 19.2 mg/mg Normal [facility] Comment on above: Performed By: #### T 7, LIPID, TSH, CMP #### [facility] [address] [place] [address] Dr. Lemuel Serrato TSHon 07-15-2022 TSH 2.220 uIU/mL Normal 0.358-3.740 [facility] Comment on above: Performed By: #### T 7, LIPID, TSH, CMP #### [facility] [address] [address] [address] Lemuel Serrato Vital Signs Date Time Vital Sign Value Performing Clinician Facility 07-08-2024 [id number]:[id number] Body height 165.1 cm [facility] 07-08-2024 13:21-0400 Body mass index (BMI) [Ratio] 26.1 kg/m2 [facility] 07-08-2024 13:21-0400 Body temperature 97.8 [degF] [facility] 07-08-2024 13:21-0400 Body weight 71.21 kg [facility] 07-08-2024 13:21-0400 Diastolic blood pressure 86 mm[Hg] [facility] 07-08-2024 13:21-0400 Heart rate 98 /min [facility] 07-08-2024 13:[id number] Respiratory rate 18 /min [facility] 07-08-2024 13:21-0400 SaO2% (BldA) [Mass fraction] 97 % [facility] 07-08-2024 13:21-0400 Systolic blood pressure 163 mm[Hg] [facility] 09-07-2021 15:00-0500 Body height 165.1 cm Evonne Ginty Other [facility] [employer] Other 09-07-2021 15:00-0500 Body mass index (BMI) [Ratio] 26.62 kg/m2 Evonne Ginty Other [employer] Other 09-07-2021 15:00-0500 Body temperature 100.6 [degF] Evonne Ginty Other [employer] Other 09-07-2021 15:00-0500 Body weight 72.58 kg Evonne Ginty Other [employer] Other 09-07-2021 15:00-0500 SaO2% (BldA) [Mass fraction] 96 % Evonne Ginty Other [employer] Other Encounters Encounter Date Encounter Type Care Provider Facility Start: 11-04-2024 End: 11-04-2024 ambulatory Garrison Duenas MD Facility:[facility] Start: 10-21-2024 End: 10-21-2024 ambulatory Garrison Duenas MD Facility:[facility] Start: 07-08-2024 End: 07-08-2024 ambulatory [facility] Work Phone: Start: 07-08-2024 End: 07-08-2024 Patient encounter procedure [facility] Work Phone: Start: 11-04-2023 Refill Indu Cash MD Work Phone: [facility] Comment on above: PVD (peripheral vasc ular disease) ([facility]); Claudication ([facility]); Bilateral carotid bruits Start: 07-18-2022 Encounter for genera l adult medical examination without abnormal findings DR SKYE KIDD [facility] Start: 07-15-2022 End: 07-16-[address] SKYE KIDD Facility:[facility] Start: 07-15-2022 End: 07-16-2022 Encounter for general adult medical examination without abnormal findings DR SKYE KIDD Facility:[facility] Start: 06-27-2022 End: 06-28-2022 ambulatory TED CASTREJON Facility:[facility] Start: 09-07-2021 End: 09-07-2021 ambulatory Evonne Seo Other [employer] Other Start: 09-07-2021 Office outpatient vi sit 15 minutes Evonne Seo [facility] Start: 11-23-2017 End: 11-24-2017 Ambulatory DEFAULT PHYSICIAN Facility:[facility] Plan of Treatment Date Care Activity Detail Author Start: 07-22-2023 Tobacco Screening Tobacco Screening [facility] Start: 06-09-2023 Influenza vaccination Influenza Vaccine [facility] Start: 2022 Fall Risk Screening Fall Risk Screening [facility] Start: 12-29-2021 DTaP,Tdap and Td Vaccines (2 - Td or Tdap) DTaP,Tdap and Td Vaccines (2 - Td or Tdap) [facility] Start: 2007 Administration of varicella zoster vaccine Zoster (Shingles) Vaccine (1 of 2) [facility] Start: 1975 Adult BMI Screening Adult BMI Screening [facility] Start: 1969 Depression Screening Depression Screening [facility] Payers Date Payer Category Payer Medicare 1957 Unknown [id number] [id number] 1957 Unknown [id number] 1955 Unknown [id number] 1957 Unknown [id number] [id number]. [id number] 1955 Unknown [id number] [id number]. [id number] Medicare Medicare [id number] 3 [id number] Unknown Social History Date Type Detail Facility Start: 03-20-2019 End: 07-22-2022 Sex Assigned At [facility] [employer] Other Start: 07-22-2022 [facility] tobacco daily [facility] History of tobacco use Cigarette Smoker [facility] Start: 07-22-2022 Tobacco use and exposure Smokeless tobacco non-user [facility] Start: 07-22-2022 Alcohol intake Defer [facility] Start: 03-20-2019 End: 07-22-2022 History of Social function [facility] Childcare Unknown [facility] Start: 1955 Sex Assigned At Not on file P [facility] Start: 07-08-2024 Tobacco smoking stat [facility] Smoker (finding) [facility] Start: 1955 Sex Assigned At Female F [facility] Evaluation note 09-07-2021 Note Date & Type [...] Patient care instructions given in writting by [facility] Care At Home document [employer] Other Evaluation note Note Date & Type Note Facility Evaluation note Diagnosis PVD (peripheral vascular disease) ([facility]) Unspecified peripheral vascular disease Claudication ([facility]) Unspecified peripheral vascular disease Bilateral carotid bruits documented in this encounter [facility] Evaluation note Note Date & Type Note Facility Evaluation note Diagnosis Onset Date Contact dermatitis noneactiv e [facility] Work Phone: History general Narrative - Reported Note Date & Type Note Facility History general Narrative - Reported Type Medical History thalassemia minor [employer] Other Instructions Note Date & Type Note Facility Instructions Not on filedocumented in this en counter [facility] Summary Purpose Family History No Family [...] and content) DATE CREATED AUTHOR 03/30/2018 [facility] DATE CREATED AUTHOR AUTHOR'S ORGANIZ ATION 07/18/2022 [facility] DATE CREATED AUTHOR AUTHOR'S ORGANIZ ATION 11/10/2024 [facility] REASON FOR VISIT (unrecogniz ed section and content) Reason Comments Med Refill Care Teams (unrecognized sec tion and content) [employer] Relationship Specialty Start Date End Date Skye Kidd MD [address] [place] [address] PCP - General Family Medicine 06/30/22 Team Status: Active Member Role Status Dates Skye Kidd MD Primary Care Provider Active Team Status: Inactive Member Role Status Dates Skye Kidd MD Primary Care Provider Active Start: July [...] BE BASED ON THE PRIMARY CLINICAL RECORDS. [facility] [employer] [facility]. provides no warranty or guarantee of the accuracy or completeness of information in this document.
--- NOTE | 2024-11-13 08:27 | P.CN_ITS ---
Consult Note: HPI Data of Consult Patient: known to practice within the last 3 years Requesting Physician: Radha Ghosh NP Primary Care Provider: Janes Bowman MD Consult Narrative Reason for consult: f/u Narrative: Isaura Ruiz a pleasant 69 year old female presents for evaluation and management of back and RLE pain. Pain started 08/31/24 after a long period of standing and significant activity. Pt has failed 6 weeks or PT, tylenol, NSAIDs, heat and ice. Pts imaging of lumbar spine consistent with lumbar stenosis with NC and lumbar radiculopathy. Of note pt mentions increased sensitivity, intermittent edema, and heat/cold intolerance to RLE since 08/31/24. Currently utilizing zonegran 150mg HS and PRN aleve with minimal relief without side effects. recently underwent right L4-5 L5-S1 TFESI with steriod rotation with no improvement the day of or ongoing, reports increased right foot pain since the injection. cc:: CC: Radha Ghosh NP Review of Systems ROS Status of ROS 10 or more systems reviewed and unremark able except as noted in history and below Musculoskeletal Reports: back pain and extremity pain PFSH PFSH Medical History (Updated 11/13/24 @ 08:28 by Radha Ghosh NP) Low back pain ?M54.50 - Low back pain, unspecified (ICD-10) Anemia ?D64.9 - Anemia, unspecified (ICD-10) Acid reflux ?K21.9 - Gastro-esophageal reflux disease without esophagitis (ICD-10) Smoker ?F17.200 - Nicotine dependence, unspecified, uncomplicated (ICD-10) Hypertension ?I10 - Essential (primary) hypertension (ICD-10) Surgical History History of tubal ligation ?Z98.51 - Tubal ligation status (ICD-10) H/O breast biopsy ?Z98.890 - Other specified postprocedural states (ICD-10) H/O oophorectomy Hx of cholecystectomy ?Z90.49 - Acquired absence of other specified parts of digestive tract (ICD- 10) Social History Little interest or pleasure in doing things: not at all Feeling down, depressed, or hopeless: not at all Meds Home Medications and Allergies Home Medications ?Medication ?Instructions ?Recorded ?Confirmed ?Type ascorbic acid (vitamin C) 1,000 mg 1 g PO DAILY 10/15/24 11/04/24 History tablet (Vitamin C) cilostazol 100 mg tablet mg 10/15/24 History clonidine HCl 0.1 mg tablet mg 10/15/24 History echinacea 125 mg capsule 125 mg PO DAILY 10/15/24 11/04/24 History lisinopril 10 mg tablet mg 10/15/24 History zinc 50 mg capsule 50 mg PO DAILY 10/15/24 11/04/24 History zonisamide 100 mg capsule 150 mg PO .hs 10/15/24 11/04/24 History (Zonegran) baclofen 10 mg tablet 10 mg PO TID 10/30/24 11/04/24 History Allergies Allergy/AdvReac Type Severity Reaction Status Date / Time No Known Drug Allergies Allergy Verified 11/04/24 08:08 Exam Constitutional Documenting provider has reviewed patient's vital signs: yes Common normals: no apparent distress, oriented x3, healthy appearing, alert and well nourished General appearance: cooperative HENMT Common normals: normocephalic, hearing grossly normal bilaterally and moist oral mucous membranes Head and scalp: normocephalic Eye Common normals: PERRL Pupil: PERRL Neck & C-Spine Common normals: full ROM General: normal visual inspection Chest Common normals: inspection of chest normal Respiratory Common normals: normal respiratory effort, no retractions and no use of accessory muscles Back & Pelvis Lumbar spine/lower back: lumbar ROM normal, pain with ROM and straight leg raise positive right; ROM not limited Other: sensation intact BLE, improvement in sensation along L4,5 dermatomal pattern, continues to have moderate to severe L5/S1 pain strength 4/5 in RLE 5/5 in LLE Extremity Other: right foot with mild dependent edema, significant redness discoloration compared to left foot, hyperalgesia and hypersensitivity Neuro Common normals: oriented x3, CN's II-XII intact bilaterally, moves all extremities, no focal motor deficits, no sensory deficits noted and deep tendon reflexes 2+ bilaterally Sensorium/orientation: alert Motor exam: strength 5/5 throughout and no movement abnormalities noted Psych Common normals: mental status grossly normal, thought process normal, cooperative, affect normal, speech normal and activity/motor behavior normal Speech: normal speech Thought process: normal thought process Assessment and Plan Assessment and Plan (1) CRPS (complex regional pain syndrome) type I of lower limb: (2) Lumbar radiculopathy: (3) Lumbar stenosis with neurogenic claudication: Plan notable improvement in right L4,5 radicular symptoms, however severe right foot pain. with insidious onset of pain 08/31/24 without known injury or trauma and based on physical exam findings I believe patient has developed complex regional pain syndrome. pt has failed to benefit from PT, zonegran 150mg HS, and baclofen 5-10mg TID PRN pain/spasms. Pt is inquiring about surgical intervention and further treatment recommendations. I would like patient to meet with Dr Duenas and consider right lumbar sympathetic nerve block under fluoroscopy. continue current medications at this time.
== END 2024-11-13 08:06 | disposition home or self-care (01) ==
LOC: PM 08:05
PROVIDERS: PCP Family Medicine; Visit Provider Nurse Practitioner
DX: M54.16 Radiculopathy, lumbar region (principal); G90.521 Complex regional pain syndrome I of right lower limb; M48.062 Spinal stenosis, lumbar region with neurogenic claudication
CPT/HCPCS: G0463

== ENCOUNTER 2024-11-18 11:24 | Outpatient (OUT) | payer MEDICARE, SELFPAY ==
--- OUTSIDE RECORDS SUMMARY | 2024-11-18 11:45 | XMS_ITS | CCD ---
Author Organization [facility] Care Team Providers Care Judicial Assistant Name Role Phone PHYSICIAN, DEFAULT Unavailable Unavailable PHYSICIAN, DEFAULT Unavailable Unavailable Evonne Seo Unavailable TED CASTREJON Admitting Unavailable TED CASTREJON Attending Unavailable MARTI, DR CHEUNG Primary Care Unavailable TED CASTREJON Consulting Unavailable MARTI, DR CHEUNG Admitting Unavailable MARTI, DR CHEUNG Attending Unavailable MARTI, DR CHEUNG Primary Care Unavailable MARTI, DR CHEUNG Consulting Unavailable Skye Kidd MD Primary Care Provider [phone] Henrique AMAYA, Garrison Davis Attending Unavailable Henrique [...] PVD (peripheral vascular disease) (CMS-HCC) , Claudication ([facility]) , Bilateral carotid bruits take 1 tablet [...] 07-16-2022 Insulin 14.3 uIU/mL Normal 2.6-24.9 [facility] Comment on above: Performed By: #### I NSULIN #### [facility] [address] [place], [place] [address] Dr. Lemuel Serrato CBC AUTO DIFFon 07-15-2022 BASO # 0.0 103/ul Normal 0.0-0.1 [facility] Comment on above: Performed By: #### C BC #### [facility] [address] [place] [address] Dr. Lemuel Serrato Basophils/100 WBC (Bld) 0.4 % Normal 0.2-2.0 [facility] Comment on above: Performed By: #### C BC #### [facility] [address] [place] [address] Dr. Lemuel Serrato EO # 0.2 103/ul Normal 0.0-0.7 [facility] Comment on above: Performed By: #### C BC #### [facility] [address] [place] [address] Dr. Lemuel Serrato Eosinophils/100 WBC (Bld) 2.7 % Normal 0.9-7.0 [facility] Comment on above: Performed By: #### C BC #### [facility] [address] [place] [address] Dr. Lemuel Serrato Erythrocyte distribution width (RBC) [Ratio] 15.9 % Critically high 11.0-15.0 [facility] Comment on above: Performed By: #### C BC #### [facility] [address] [place] [address] Dr. Lemuel Serrato Hematocrit (Bld) [Volume fraction] 30.5 % Critically low 36.0-48.0 [facility] Comment on above: Performed By: #### C BC #### [facility] [address] [place] [address] Dr. Lemuel Serrato Hemoglobin (Bld) [Mass/Vol] 9.0 g/dL Critically low 12.0-16.0 [facility] Comment on above: Performed By: #### C BC #### [facility] [address] [place] [address] Dr. Lemuel Serrato IG # 0.03 10e3/ul Normal 0.00-0.03 [facility] Comment on above: Performed By: #### C BC #### [facility] [address] [address] [address] Lemuel Serrato IG % 0.4 % Normal 0.0-0.5 [facility] Comment on above: Performed By: #### C BC #### [facility] [address] [place] [address] Dr. Lemuel Serrato LYMPH # 3.1 103/ul Normal 1.2-3.8 [facility] Comment on above: Performed By: #### C BC #### [facility] [address] [place] [address] Dr. Lemuel Serrato Lymphocytes/100 WBC (Bld) 41.8 % Normal 20.5-60.0 [facility] Comment on above: Performed By: #### C BC #### [facility] [address] [place] [address] Dr. Lemuel Serrato MANUAL DIFF REQ NO Normal [facility] Comment on above: Performed By: #### C BC #### [facility] [address] [place] [address] Dr. Lemuel Serrato MCH (RBC) [Entitic mass] 18.9 pg Critically low 26.7-34.0 [facility] Comment on above: Performed By: #### C BC #### [facility] [address] [place] [address] Dr. Lemuel Serrato MCHC (RBC) [Mass/Vol] 29.5 g/dL Critically low 29.9-35.2 [facility] Comment on above: Performed By: #### C BC #### [facility] [address] [place] [address] Dr. Lemuel Serrato MCV (RBC) [Entitic vol] 64.2 fL Critically low 81.0-99.0 [facility] Comment on above: Performed By: #### C BC #### [facility] [address] [place] [address] Dr. Lemuel Serrato MONO # 0.7 103/ul Normal 0.3-0.8 [facility] Comment on above: Performed By: #### C BC #### [facility] [address] [place] [address] Dr. Lemuel Serrato Monocytes/100 WBC (Bld) 8.8 % Normal 1.7-12.0 [facility] Comment on above: Performed By: #### C BC #### [facility] [address] [address] [address] Lemuel Serrato NEUT # 3.4 103/ul Normal 1.4-6.5 [facility] Comment on above: Performed By: #### C BC #### [facility] [address] [address] [address] Lemuel Serrato Neutrophils/100 WBC (Bld) 45.9 % Normal 43.0-75.0 [facility] Comment on above: Performed By: #### C BC #### [facility] [address] [place] [address] Dr. Lemuel Serrato Platelet mean volume (Bld) [Entitic vol] 9.8 fL Normal 9.5-13.5 [facility] Comment on above: Performed By: #### C BC #### [facility] [address] [place] [address] Dr. Lemuel Serrato PLT 263 103/ul Normal 150-450 [facility] Comment on above: Performed By: #### C BC #### [facility] [address] [place] [address] Dr. Lemuel Serrato RBC 4.75 106/ul Normal 4.20-5.40 [facility] Comment on above: Result Comment: SLIG HT MICROCYTOSIS 1+ POIKILOCYTOSIS 1+ OVALOCYTE SLIGHT ACANTHOCYTE Performed By: #### C BC #### [facility] [address] [place] [address] Dr. Lemuel Serrato WBC 7.4 103/ul Normal 4.0-11.0 [facility] Comment on above: Performed By: #### C BC #### [facility] [address] [place] [address] Dr. Lemuel Serrato FREE THYROXINE INDEX T7on FTI 2.15 Normal 1.30-4.50 [facility] Comment on above: Performed By: #### T 7, LIPID, TSH, CMP #### [facility] [address] [address] [address] Lemuel Serrato T3U 33.0 % Normal 30.0-39.0 [facility] Comment on above: Performed By: #### T 7, LIPID, TSH, CMP #### [facility] [address] [address] [address] Lemuel Serrato T4 [Mass/Vol] 6.50 ug/dL Normal 4.80-13.90 [facility] Comment on above: Performed By: #### T 7, LIPID, TSH, CMP #### [facility] [address] [address] [address] Lemuel Serrato GLYCOHEMOGLOBIN A1Con 2021 ADA RECOMMENDATION SEE BELOW Normal [facility] Comment on above: Result Comment: ADA RECOMMENDED LIMIT 4.0 - 6.0 ADA THERAPEUTIC TARGET < 7.0 ACTION SUGGESTED > 7.0 Performed By: #### A 1C #### [facility] [address] [address] [address] Lemuel Serrato Glucose [Mass/Vol] 137 mg/dL Normal [facility] Comment on above: Performed By: #### A 1C #### [facility] [address] [place] [address] Dr. Lemuel Serrato HbA1c (Bld) [Mass fraction] 6.4 % Critically high 4.5-6.2 [facility] Comment on above: Performed By: #### A 1C #### [facility] [address] [place] [address] Dr. Lemuel Serrato IRONon 07-15-2022 Iron [Mass/Vol] 70.0 ug/dL Normal 50.0-170.0 [facility] Comment on above: Performed By: #### I MARAL #### [facility] [address] [place] [address] Dr. Lemuel Serrato LIPID PROFILEon 07-15-2022 CHOL-HDL RATIO NORM SEE BELOW Normal [facility] Comment on above: Result Comment: 3.3 - 4.4 LOW RISK 4.4 - 7.1 AVERAGE RISK 7.1 - 11.0 MODERATE RISK >11.0 HIGH RISK Performed By: #### T 7, LIPID, TSH, CMP #### [facility] [address] [address] [address] Lemuel Serrato Cholesterol [Mass/Vol] 152 mg/dL Normal <=200 [facility] Comment on above: Performed By: #### T 7, LIPID, TSH, CMP #### [facility] [address] [address] [address] Lemuel Serrato Cholesterol in HDL [Mass/Vol] 32 mg/dL Critically low 40-60 [facility] Comment on above: Performed By: #### T 7, LIPID, TSH, CMP #### [facility] [address] [address] [address] Lemuel Serrato Cholesterol in LDL [Mass/Vol] 96.8 mg/dL Normal [facility] Comment on above: Performed By: #### T 7, LIPID, TSH, CMP #### [facility] [address] [address] [address] Lemuel Serrato Cholesterol.total/Cho lesterol in HDL [Mass ratio] 4.8 {ratio} Normal [facility] Comment on above: Performed By: #### T 7, LIPID, TSH, CMP #### [facility] [address] [address] [address] Lemuel Serrato HDL NORMAL > or = 60 mg/dl - LOW CARDIOVASCULAR RISK <40 mg/dl - HIGH CARDIOVASCULAR RISK Normal [facility] Comment on above: Performed By: #### T 7, LIPID, TSH, CMP #### [facility] [address] [address] [address] Lemuel Serrato LDL CALC NORMAL SEE BELOW Normal [facility] Comment on above: Result Comment: <100 mg/dl OPTIMAL 100 - 129 mg/dl NEAR OR ABOVE OPTIMAL 130 - 159 mg/dl BORDERLINE HIGH 160 - 189 mg/dl HIGH >190 mg/dl VERY HIGH Performed By: #### T 7, LIPID, TSH, CMP #### [facility] [address] [address] [address] Lemuel Serrato Triglyceride [Mass/Vol] 116 mg/dL Normal <=150 [facility] Comment on above: Performed By: #### T 7, LIPID, TSH, CMP #### [facility] [address] [address] [address] Lemuel Serrato VLDL CALC 23.2 mg/dL Normal [facility] Comment on above: Performed By: #### T 7, LIPID, TSH, CMP #### [facility] [address] [place] [address] Dr. Lemuel Serrato PROF 14(COMP METB)on 022 Albumin [Mass/Vol] 3.5 g/dL Normal 3.4-5.0 [facility] Comment on above: Performed By: #### T 7, LIPID, TSH, CMP #### [facility] [address] [place] [address] Dr. Lemuel Serrato Albumin/Globulin [Mass ratio] 0.9 {ratio} Normal [facility] Comment on above: Performed By: #### T 7, LIPID, TSH, CMP #### [facility] [address] [place] [address] Dr. Lemuel Serrato ALP [Catalytic activity/Vol] 91 U/L Normal 46-116 [facility] Comment on above: Performed By: #### T 7, LIPID, TSH, CMP #### [facility] [address] [place] [address] Dr. Lemuel Serrato ALT [Catalytic activity/Vol] 21 U/L Normal 14-59 [facility] Comment on above: Performed By: #### T 7, LIPID, TSH, CMP #### [facility] [address] [place] [address] Dr. Lemuel Serrato Anion gap [Moles/Vol] 10.1 mmol/L Normal [facility] Comment on above: Performed By: #### T 7, LIPID, TSH, CMP #### [facility] [address] [place] [address] Dr. Lemuel Serrato AST [Catalytic activity/Vol] 10 U/L Critically low 15-37 [facility] Comment on above: Performed By: #### T 7, LIPID, TSH, CMP #### [facility] [address] [place] [address] Dr. Lemuel Serrato Bilirubin [Mass/Vol] 0.3 mg/dL Normal 0.2-1.0 [facility] Comment on above: Performed By: #### T 7, LIPID, TSH, CMP #### [facility] [address] [address] [address] Lemuel Serrato Calcium [Mass/Vol] 8.6 mg/dL Normal 8.5-10.1 [facility] Comment on above: Performed By: #### T 7, LIPID, TSH, CMP #### [facility] [address] [address] [address] Lemuel Serrato Chloride [Moles/Vol] 107 mmol/L Normal 98-107 [facility] Comment on above: Performed By: #### T 7, LIPID, TSH, CMP #### [facility] [address] [place] [address] Dr. Lemuel Serrato CO2 [Moles/Vol] 25.8 mmol/L Normal 21.0-32.0 [facility] Comment on above: Performed By: #### T 7, LIPID, TSH, CMP #### [facility] [address] [place] [address] Dr. Lemuel Serrato Creatinine [Mass/Vol] 1.20 mg/dL Critically high 0.55-1.02 [facility] Comment on above: Performed By: #### T 7, LIPID, TSH, CMP #### [facility] [address] [place] [address] Dr. Lemuel Serrato EGFR-AF PRYDEINIG 55 mL/min/1.73m2 Critically low >=60 [facility] Comment on above: Performed By: #### T 7, LIPID, TSH, CMP #### [facility] [address] [place] [address] Dr. Lemuel Serrato EGFR-NON AF PRYDEINIG 45 mL/min/1.73m2 Critically low >=60 [facility] Comment on above: Performed By: #### T 7, LIPID, TSH, CMP #### [facility] [address] [place] [address] Dr. Lemuel Serrato Globulin (S) [Mass/Vol] 3.9 g/dL Normal [facility] Comment on above: Performed By: #### T 7, LIPID, TSH, CMP #### [facility] [address] [address] [address] Lemuel Serrato Glucose [Mass/Vol] 96 mg/dL Normal 74-[address] [facility] Comment on above: Performed By: #### T 7, LIPID, TSH, CMP #### [facility] [address] [address] [address] Lemuel Serrato Potassium [Moles/Vol] 3.9 mmol/L Normal 3.5-5.1 [facility] Comment on above: Performed By: #### T 7, LIPID, TSH, CMP #### [facility] [address] [address] [address] Lemuel Serrato Protein [Mass/Vol] 7.4 g/dL Normal 6.4-8.[address] [facility] Comment on above: Performed By: #### T 7, LIPID, TSH, CMP #### [facility] [address] [address] [address] Lemuel Serrato Sodium [Moles/Vol] 139 mmol/L Normal 136-[address] [facility] Comment on above: Performed By: #### T 7, LIPID, TSH, CMP #### [facility] [address] [address] [address] Lemuel Serrato Urea nitrogen [Mass/Vol] 23.0 mg/dL Critically high 7.0-18.0 [facility] Comment on above: Performed By: #### T 7, LIPID, TSH, CMP #### [facility] [address] [place] [address] Dr. Lemuel Serrato Urea nitrogen/Creatinine [Mass ratio] 19.2 mg/mg Normal [facility] Comment on above: Performed By: #### T 7, LIPID, TSH, CMP #### [facility] [address] [place] [address] Dr. Lemuel Serrato TSHon 07-15-2022 TSH 2.220 uIU/mL Normal 0.358-3.740 [facility] Comment on above: Performed By: #### T 7, LIPID, TSH, CMP #### [facility] [address] [address] [address] Lemuel Serrato Vital Signs Date Time Vital Sign Value Performing Clinician Facility 07-08-2024 [id number]:[id number] Body height 165.1 cm [facility] 07-08-2024 13:21-0400 Body mass index (BMI) [Ratio] 26.1 kg/m2 [facility] 07-08-2024 13:21-0400 Body temperature 97.8 [degF] [facility] 07-08-2024 13:21-0400 Body weight 71.21 kg [facility] 07-08-2024 13:21-0400 Diastolic blood pressure 86 mm[Hg] [facility] 07-08-2024 13:21-0400 Heart rate 98 /min [facility] 07-08-2024 [id number] Respiratory rate 18 /min [facility] 07-08-2024 13:21-0400 SaO2% (BldA) [Mass fraction] 97 % [facility] 07-08-2024 13:21-0400 Systolic blood pressure 163 mm[Hg] [facility] 09-07-2021 15:00-0500 Body height 165.1 cm Evonne Ginty Other [facility] Other 09-07-2021 15:00-0500 Body mass index (BMI) [Ratio] 26.62 kg/m2 Evonne Ginty Other [facility] Other 09-07-2021 15:00-0500 Body temperature 100.6 [degF] Evonne Ginty Other [facility] Other 09-07-2021 15:00-0500 Body weight 72.58 kg Evonne Ginty Other [facility] Other 09-07-2021 15:00-0500 SaO2% (BldA) [Mass fraction] 96 % Evonne Ginty Other [facility] Other Encounters Encounter Date Encounter Type Care Provider Facility Start: 11-04-2024 End: 11-04-2024 ambulatory Garrison Duenas MD Facility:[facility] Start: 10-21-2024 End: 10-21-2024 ambulatory Garrison Duenas MD Facility:[facility] Start: 07-08-2024 End: 07-08-2024 ambulatory [facility] Work Phone: Start: 07-08-2024 End: 07-08-2024 Patient encounter procedure [facility] Work Phone: Start: 11-04-2023 Refill Indu Cash MD Work Phone: [facility] Comment on above: PVD (peripheral vasc ular disease) ([facility]); Claudication ([facility]); Bilateral carotid bruits Start: 07-18-2022 Encounter for genera l adult medical examination without abnormal findings DR SKYE KIDD [facility] Start: 07-15-2022 End: 07-16-[address] SKYE KIDD Facility:[facility] Start: 07-15-2022 End: 07-16-2022 Encounter for general adult medical examination without abnormal findings DR SKYE KIDD Facility:[facility] Start: 06-27-2022 End: 06-28-2022 ambulatory TED CASTREJON Facility:[facility] Start: 09-07-2021 End: 09-07-2021 ambulatory Evonne Seo Other [facility] Other Start: 09-07-2021 Office outpatient vi sit 15 minutes Evonne Seo [facility] Start: 11-23-2017 End: 11-24-2017 Ambulatory DEFAULT PHYSICIAN Facility:[facility] Plan of Treatment Date Care Activity Detail Author Start: 07-22-2023 Tobacco Screening Tobacco Screening [facility] Start: 06-09-2023 Influenza vaccination Influenza Vaccine [facility] Start: 2022 Fall Risk Screening Fall Risk Screening [facility] Start: 12-29-2021 DTaP,Tdap and Td Vaccines (2 - Td or Tdap) DTaP,Tdap and Td Vaccines (2 - Td or Tdap) [facility] Start: 2007 Administration of varicella zoster vaccine Zoster (Shingles) Vaccine (1 of 2) [facility] Start: 1975 Adult BMI Screening Adult BMI Screening [facility] Start: 1969 Depression Screening Depression Screening [facility] Payers Date Payer Category Payer Medicare 1957 Unknown [id number] [id number] 1955 Unknown [id number] 1955 Unknown [id number] 1957 Unknown [id number] 1955 Unknown [id number] [id number] Medicare Medicare [id number] Unknown Social History Date Type Detail Facility Start: 03-20-2019 End: 07-22-2022 Sex Assigned At [facility] [employer] Other Start: 07-22-2022 [facility] History of tobacco use Cigarette Smoker P [facility] Start: 07-22-2022 Tobacco use and exposure Smokeless tobacco non-user [facility] Start: 07-22-2022 Alcohol intake [facility] Start: 03-20-2019 End: 07-22-2022 History of Social function [facility] Childcare Unknown [facility] Start: 1955 Sex Assigned At Not on file P [facility] Start: 07-08-2024 Tobacco smoking stat [facility] Smoker (finding) [facility] Start: 1955 Sex Assigned At Female F [facility] Evaluation note 09-07-2021 Note Date & [...] Patient care instructions given in writting by [facility] Care At Home document [facility] Other Evaluation note Note Date & Type Note Facility Evaluation note Diagnosis PVD (peripheral vascular disease) ([facility]) Unspecified peripheral vascular disease Claudication ([facility]) Unspecified peripheral vascular disease Bilateral carotid bruits documented in this encounter [facility] Evaluation note Note Date & Type Note Facility Evaluation note Diagnosis Onset Date Contact dermatitis noneactiv e [facility] Work Phone: History general Narrative - Reported Note Date & Type Note Facility History general Narrative - Reported Type Medical History thalassemia minor [facility] Other Instructions Note Date & Type Note [...] and content) DATE CREATED AUTHOR 03/30/2018 [facility] DATE CREATED AUTHOR AUTHOR'S ORGANIZ ATION 07/18/2022 [facility] DATE CREATED AUTHOR AUTHOR'S ORGANIZ ATION 11/10/2024 [facility] REASON FOR VISIT (unrecogniz ed section and content) Reason Comments Med Refill Care Teams (unrecognized sec tion and content) Judicial Assistant Relationship Specialty Start Date End Date Skye Kidd MD [address] [place] [address] PCP - General Family Medicine 06/30/22 Team [...] BE BASED ON THE PRIMARY CLINICAL RECORDS. [facility] [employer] [facility]. provides no warranty or guarantee of the accuracy or completeness of information in this document.
--- NOTE | 2024-11-18 12:21 | P.CN_ITS ---
Consult Note: HPI Data of Consult Patient: known to practice within the last 3 years Consult date: 11/18/24 Requesting Physician: Garrison Duenas MD Primary Care Provider: Janes Bowman MD Consult Narrative Reason for consult: right foot pain Narrative: 69yof who presents for assessment. notes significant pain in right foot. foot appears to be swollen, has healing lesions over it. denies any trauma to area, states that happened shortly after undergoing lumbar transforaminal epidural steroid injection. has tried baclofen, which helps. denies adverse med side effects. cc:: CC: Garrison Duenas MD Review of Systems ROS Status of ROS 10 or more systems reviewed and unremark able except as noted in history and below [facility] History Low back pain ?M54.50 - Low back pain, unspecified (ICD-10) Anemia ?D64.9 - Anemia, unspecified (ICD-10) Acid reflux ?K21.9 - Gastro-esophageal reflux disease without esophagitis (ICD-10) Smoker ?F17.200 - Nicotine dependence, unspecified, uncomplicated (ICD-10) Hypertension ?I10 - Essential (primary) hypertension (ICD-10) Surgical History History of tubal ligation ?Z98.51 - Tubal ligation status (ICD-10) H/O breast biopsy ?Z98.890 - Other specified postprocedural states (ICD-10) H/O oophorectomy Hx of cholecystectomy ?Z90.49 - Acquired absence of other specified parts of digestive tract (ICD- 10) Social History Little interest or pleasure in doing things: not at all Feeling down, depressed, or hopeless: not at all Meds Home Medications and Allergies Home Medications ?Medication ?Instructions ?Recorded ?Confirmed ?Type ascorbic acid (vitamin C) 1,000 mg 1 g PO DAILY 10/15/24 11/04/24 History tablet (Vitamin C) cilostazol 100 mg tablet mg 10/15/24 History clonidine HCl 0.1 mg tablet mg 10/15/24 History echinacea 125 mg capsule 125 mg PO DAILY 10/15/24 11/04/24 History lisinopril 10 mg tablet mg 10/15/24 History zinc 50 mg capsule 50 mg PO DAILY 10/15/24 11/04/24 History zonisamide 100 mg capsule 150 mg PO .hs 10/15/24 11/04/24 History (Zonegran) baclofen 10 mg tablet 10 mg PO TID 10/30/24 11/04/24 History Allergies Allergy/AdvReac Type Severity Reaction Status Date / Time No Known Drug Allergies Allergy Verified 11/04/24 08:08 Exam Narrative Exam Narrative: Psych-alert and oriented x 3. Attentive and appropriate, constitutionally normal, displays normal mood and affect per situation. There are no obvious deficits in memory, reasoning, or intellect.? Skin-no obvious rashes, bruising, erythema noted to the patient's area of pain.? Extremities- extremities are warm with minimal edema and palpable pulses. Tender to palpation in right foot. 2+ edema noted in right foot. Healing lesions noted on right foot. Lumbar-tenderness to palpation noted in the lumbar spine and paraspinal musculature. Pain is not elicited with flexion, extension, and lateral rotation of the lumbar spine. Range of motion is not diminished with these motions. Facet loading maneuvers are negative.? Strength-noted to be unremarkable Sensory-no notable sensory deficits in the bilateral lower extremities to touch or pinprick in all dermatomal distributions with the exception to decreased sensation to the right L4, 5 dermatomal distribution Coordination remains intact.? Gait remains non-antalgic. Assessment and Plan Assessment and Plan (1) CRPS (complex regional pain syndrome) type I of lower limb: Qualifiers: Laterality: right Qualified Code(s): G90.521 - Complex regional pain syndrome I of right lower limb (2) Lumbar stenosis with neurogenic claudication: Plan 69yof who presents for assessment. notes increased pain in right foot. unclear as to why has noted swelling and healing ulcerations in right foot only. discussed that if she had reaction to medication with injection, much more likely to have diffuse symptoms. would like her to undergo ultrasound of right lower extremity to rule out blood clot. meds reviewed. will try prednisone 20mg tid for 3 days, as well as gabapentin 300mg tid. follow up in 3-4 weeks or sooner, if needed.
== END 2024-11-18 11:25 | disposition home or self-care (01) ==
LOC: PM 11:24
PROVIDERS: PCP Family Medicine; Visit Provider Anesthesiology
DX: M79.671 Pain in right foot (principal); G90.521 Complex regional pain syndrome I of right lower limb; M48.062 Spinal stenosis, lumbar region with neurogenic claudication; R60.0 Localized edema
CPT/HCPCS: G0463

== ENCOUNTER 2024-11-18 15:56 | Outpatient (OUT) | payer MEDICARE, SELFPAY ==
--- NOTE | 2024-11-18 15:59 | US_ITS ---
The [address] [address] Patient Name: BHAVYA COCHRAN MRN: [id number] date: 1955 Sex: F Assigned Patient Location: US Current Patient Location: US Accession/Order Number: [id number] Exam Date: 11/18/2024 16:09 Report Date: 11/18/2024 18:06 At the request of: TONY ELY Procedure: US venous doppler LE RT CLINICAL DATA: Evaluate for venous thrombosis. PROCEDURE: Right lower extremity venous duplex ultrasound. TECHNIQUE: Casanova-scale, color flow, and waveform spectral analysis was performed of the right lower extremity. FINDINGS: The right common femoral, profunda femoral, femoral, and popliteal veins were compressible. The saphenous vein was compressible. No venous thrombosis was seen. The veins fill with color Doppler. Augmentation was normal. US/US venous doppler LE RT IMPRESSION: 1. No acute lower extremity deep venous thrombosis. 2. No superficial venous thrombosis. Electronically authenticated by: Leonardo RODRIGUEZ Date: 11/18/2024 18:06
== END 2024-11-18 15:57 | disposition home or self-care (01) ==
LOC: US 15:56
PROVIDERS: PCP Family Medicine; Visit Provider Anesthesiology
DX: M79.671 Pain in right foot (principal); R60.0 Localized edema; G90.521 Complex regional pain syndrome I of right lower limb
CPT/HCPCS: 93971; G0463

== ENCOUNTER 2024-11-26 12:09 | Emergency (ER) | payer MEDICARE, SELFPAY ==
[2024-11-26 12:16] VITALS: BP 115/76; PULSE 74; TEMP 37; O2SAT 99; BMI 27.5
--- OUTSIDE RECORDS SUMMARY | 2024-11-26 12:16 | XMS_ITS | CCD ---
Author Organization [facility] Care Team Providers Care Toll Operator Name Role Phone PHYSICIAN, DEFAULT Unavailable Unavailable PHYSICIAN, DEFAULT Unavailable Unavailable Evonne Seo Unavailable TED CASTREJON Admitting Unavailable TED CASTREJON Attending Unavailable COLBY, DR CHEUNG Primary Care Unavailable TED CASTREJON Consulting Unavailable COLBY, DR CHEUNG Admitting Unavailable COLBY, DR CHEUNG Attending Unavailable COLBY, DR CHEUNG Primary Care Unavailable COLBY, DR CHEUNG Consulting Unavailable Colby AMAYA, Skye Hooker Primary Care Provider [phone] Henrique AMAYA, Garrison Davis Attending Unavailable Henrique AMAYA, Garrison Davis Attending Unavailable Henrique [...] vascular disease) ([facility]) , Claudication ([facility]) , Bilateral carotid bruits take 1 tablet [...] Translations: [Essential (primary) hypertension] 07-08-2024 Chronic Other connective tissue disease (4 sources) Pain [...] communicable diseases Onset: 09-07-2021 Resolved: 09-07-2021 Episodic Other circulatory disease (1 source) Carotid bruit; Translations: [Other specified symptoms and signs involving the circulatory and respiratory systems] 11-04-2023 Episodic Viral infection (1 source) COVID-19 Onset: 09-07-2021 Resolved: 09-07-2021 Results Test Name Value Interpretation Reference Range Facil ity INSULINon 07-16-2022 Insulin 14.3 uIU/mL Normal 2.6-24.9 [facility] Comment on above: Performed By: #### I NSULIN #### [facility] Laboratory [address] [address] [address] Lemuel Serrato CBC AUTO DIFFon 07-15-2022 BASO # 0.0 103/ul Normal 0.0-0.1 [facility] Comment on above: Performed By: #### C BC #### [facility] [address] [address] [address] Lemuel Serrato Basophils/100 WBC (Bld) 0.4 % Normal 0.2-2.0 [facility] Comment on above: Performed By: #### C BC #### [facility] [address] [place] [address] Dr. Lemuel Serrato EO # 0.2 103/ul Normal 0.0-0.7 [facility] Comment on above: Performed By: #### C BC #### [facility] [address] [place] [address] Dr. Lemuel Serrato Eosinophils/100 WBC (Bld) 2.7 % Normal 0.9-7.0 [facility] Comment on above: Performed By: #### C BC #### [facility] [address] [place] [address] Dr. Lemuel Serrato Erythrocyte distribution width (RBC) [Ratio] 15.9 % Critically high 11.0-15.0 [facility] Comment on above: Performed By: #### C BC #### [facility] [address] [place] [address] Dr. Lemuel Serrato Hematocrit (Bld) [Volume fraction] 30.5 % Critically low 36.0-48.0 [facility] Comment on above: Performed By: #### C BC #### [facility] [address] [place] [address] Dr. Lemuel Serrato Hemoglobin (Bld) [Mass/Vol] 9.0 g/dL Critically low 12.0-16.0 [facility] Comment on above: Performed By: #### C BC #### [facility] [address] [place] [address] Dr. Lemuel Serrato IG # 0.03 10e3/ul Normal 0.00-0.03 [facility] Comment on above: Performed By: #### C BC #### [facility] [address] [place] [address] Dr. Lemuel Serrato IG % 0.4 % Normal 0.0-0.5 [facility] Comment on above: Performed By: #### C BC #### [facility] [address] [address] [address] Lemuel Serrato LYMPH # 3.1 103/ul Normal 1.2-3.8 [facility] Comment on above: Performed By: #### C BC #### [facility] [address] [place] [address] Dr. Lemuel Serrato Lymphocytes/100 WBC (Bld) 41.8 % Normal 20.5-60.0 [facility] Comment on above: Performed By: #### C BC #### [facility] [address] [place] [address] Dr. Lemuel Serrato MANUAL DIFF REQ NO Normal [facility] Comment on above: Performed By: #### C BC #### [facility] [address] [place] [address] Dr. Lemuel Serrato MCH (RBC) [Entitic mass] 18.9 pg Critically low 26.7-34.0 [facility] Comment on above: Performed By: #### C BC #### [facility] [address] [place] [address] Dr. Lemuel Serrato MCHC (RBC) [Mass/Vol] 29.5 g/dL Critically low 29.9-35.2 [facility] Comment on above: Performed By: #### C BC #### [facility] [address] [place] [address] Dr. Lemuel Serrato MCV (RBC) [Entitic vol] 64.2 fL Critically low 81.0-99.0 [facility] Comment on above: Performed By: #### C BC #### [facility] [address] [place] [address] Dr. Lemuel Serrato MONO # 0.7 103/ul Normal 0.3-0.8 [facility] Comment on above: Performed By: #### C BC #### [facility] [address] [place], [place] [address] Dr. Lemuel Serrato Monocytes/100 WBC (Bld) 8.8 % Normal 1.7-12.0 [facility] Comment on above: Performed By: #### C BC #### [facility] [address] [address] [address] Lemuel Serrato NEUT # 3.4 103/ul Normal 1.4-6.5 [facility] Comment on above: Performed By: #### C BC #### [facility] [address] [address] [address] Lemuel Serrato Neutrophils/100 WBC (Bld) 45.9 % Normal 43.0-75.0 [facility] Comment on above: Performed By: #### C BC #### [facility] [address] [place] [address] Dr. Lemuel Serrato Platelet mean volume (Bld) [Entitic vol] 9.8 fL Normal 9.5-13.5 [facility] Comment on above: Performed By: #### C BC #### [facility] [address] [address] [address] Lemuel Serrato PLT 263 103/ul Normal 150-450 [facility] Comment on above: Performed By: #### C BC #### [facility] [address] [place] [address] Dr. Lemuel Serrato RBC 4.75 106/ul Normal 4.20-5.40 [facility] Comment on above: Result Comment: SLIG HT MICROCYTOSIS 1+ POIKILOCYTOSIS 1+ OVALOCYTE SLIGHT ACANTHOCYTE Performed By: #### C BC #### [facility] [address] [place] [address] Dr. Lemuel Serrato WBC 7.4 103/ul Normal 4.0-11.0 [facility] Comment on above: Performed By: #### C BC #### [facility] [address] [place] [address] Dr. Lemuel Serrato FREE THYROXINE INDEX T7on FTI 2.15 Normal 1.30-4.50 [facility] Comment on above: Performed By: #### T 7, LIPID, TSH, CMP #### [facility] [address] [address] [address] Lmeuel Serrato T3U 33.0 % Normal 30.0-39.0 [facility] Comment on above: Performed By: #### T 7, LIPID, TSH, CMP #### [facility] [address] [address] [address] Lemuel Serrato T4 [Mass/Vol] 6.50 ug/dL Normal 4.80-13.[address] [facility] Comment on above: Performed By: #### T 7, LIPID, TSH, CMP #### [facility] [address] [address] [address] Lemuel Serrato GLYCOHEMOGLOBIN A1Con 2021 ADA RECOMMENDATION SEE BELOW Normal [facility] Comment on above: Result Comment: ADA RECOMMENDED LIMIT 4.0 - 6.0 ADA THERAPEUTIC TARGET < 7.0 ACTION SUGGESTED > 7.0 Performed By: #### A 1C #### [facility] [address] [address] [address] Lemuel Serrato Glucose [Mass/Vol] 137 mg/dL Normal [facility] Comment on above: Performed By: #### A 1C #### [facility] [address] [address] [address] Lemuel Serrato HbA1c (Bld) [Mass fraction] 6.4 % Critically high 4.5-6.2 [facility] Comment on above: Performed By: #### A 1C #### [facility] [address] [address] [address] Lemuel Serrato IRONon 07-15-2022 Iron [Mass/Vol] 70.0 ug/dL Normal 50.0-170.0 [facility] Comment on above: Performed By: #### I MARAL #### [facility] [address] [place] [address] Dr. Lemuel Serrato LIPID PROFILEon 07-15-2022 CHOL-HDL RATIO NORM SEE BELOW Normal [facility] Comment on above: Result Comment: 3.3 - 4.4 LOW RISK 4.4 - 7.1 AVERAGE RISK 7.1 - 11.0 MODERATE RISK >11.0 HIGH RISK Performed By: #### T 7, LIPID, TSH, CMP #### [facility] [address] [address] [address] Lemuel Serrato Cholesterol [Mass/Vol] 152 mg/dL Normal <=200 [facility] Comment on above: Performed By: #### T 7, LIPID, TSH, CMP #### [facility] [address] [address] [address] Lemuel Serrato Cholesterol in HDL [Mass/Vol] 32 mg/dL Critically low 40-60 [facility] Comment on above: Performed By: #### T 7, LIPID, TSH, CMP #### [facility] [address] [place] [address] Dr. Lemuel Serrato Cholesterol in LDL [Mass/Vol] 96.8 mg/dL Normal [facility] Comment on above: Performed By: #### T 7, LIPID, TSH, CMP #### [facility] [address] [place] [address] Dr. Lemuel Serrato Cholesterol.total/Cho lesterol in HDL [Mass ratio] 4.8 {ratio} Normal [facility] Comment on above: Performed By: #### T 7, LIPID, TSH, CMP #### [facility] [address] [place] [address] Dr. Lemuel Serrato HDL NORMAL > or = 60 mg/dl - LOW CARDIOVASCULAR RISK <40 mg/dl - HIGH CARDIOVASCULAR RISK Normal [facility] Comment on above: Performed By: #### T 7, LIPID, TSH, CMP #### [facility] [address] [place] [address] Dr. Lemuel Serrato LDL CALC NORMAL SEE BELOW Normal [facility] Comment on above: Result Comment: <100 mg/dl OPTIMAL 100 - 129 mg/dl NEAR OR ABOVE OPTIMAL 130 - 159 mg/dl BORDERLINE HIGH 160 - 189 mg/dl HIGH >190 mg/dl VERY HIGH Performed By: #### T 7, LIPID, TSH, CMP #### [facility] [address] [place] [address] Dr. Lemuel Serrato Triglyceride [Mass/Vol] 116 mg/dL Normal <=150 [facility] Comment on above: Performed By: #### T 7, LIPID, TSH, CMP #### [facility] [address] [place] [address] Dr. Lemuel Serrato VLDL CALC 23.2 mg/dL Normal [facility] Comment on above: Performed By: #### T 7, LIPID, TSH, CMP #### [facility] [address] [place] [address] Dr. Lemuel Serrato PROF 14(COMP METB)on 022 Albumin [Mass/Vol] 3.5 g/dL Normal 3.4-5.0 [facility] Comment on above: Performed By: #### T 7, LIPID, TSH, CMP #### [facility] [address] [place] [address] Dr. Lemuel Serrato Albumin/Globulin [Mass ratio] 0.9 {ratio} Normal [facility] Comment on above: Performed By: #### T 7, LIPID, TSH, CMP #### [facility] [address] [place] [address] Dr. Lemuel Serrato ALP [Catalytic activity/Vol] 91 U/L Normal 46-116 [facility] Comment on above: Performed By: #### T 7, LIPID, TSH, CMP #### [facility] [address] [place] [address] Dr. Lemuel Serrato ALT [Catalytic activity/Vol] 21 U/L Normal 14-59 [facility] Comment on above: Performed By: #### T 7, LIPID, TSH, CMP #### [facility] [address] [place] [address] Dr. Lemuel Serrato Anion gap [Moles/Vol] 10.1 mmol/L Normal [facility] Comment on above: Performed By: #### T 7, LIPID, TSH, CMP #### [facility] [address] [place] [address] Dr. Lemuel Serrato AST [Catalytic activity/Vol] 10 U/L Critically low 15-37 [facility] Comment on above: Performed By: #### T 7, LIPID, TSH, CMP #### [facility] [address] [place] [address] Dr. Lemuel Serrato Bilirubin [Mass/Vol] 0.3 mg/dL Normal 0.2-1.0 [facility] Comment on above: Performed By: #### T 7, LIPID, TSH, CMP #### [facility] [address] [place] [address] Dr. Lemuel Serrato Calcium [Mass/Vol] 8.6 mg/dL Normal 8.5-10.1 [facility] Comment on above: Performed By: #### T 7, LIPID, TSH, CMP #### [facility] [address] [place] [address] Dr. Lemuel Serrato Chloride [Moles/Vol] 107 mmol/L Normal 98-107 [facility] Comment on above: Performed By: #### T 7, LIPID, TSH, CMP #### [facility] [address] [place] [address] Dr. Lemuel Serrato CO2 [Moles/Vol] 25.8 mmol/L Normal 21.0-32.0 [facility] Comment on above: Performed By: #### T 7, LIPID, TSH, CMP #### [facility] [address] [place] [address] Dr. Lemuel Serrato Creatinine [Mass/Vol] 1.20 mg/dL Critically high 0.55-1.02 [facility] Comment on above: Performed By: #### T 7, LIPID, TSH, CMP #### [facility] [address] [place] [address] Dr. Lemuel Serrato EGFR-AF BENINESE 55 mL/min/1.73m2 Critically low >=60 [facility] Comment on above: Performed By: #### T 7, LIPID, TSH, CMP #### [facility] [address] [place] [address] Dr. Lemuel Serrato EGFR-NON AF BENINESE 45 mL/min/1.73m2 Critically low >=60 [facility] Comment on above: Performed By: #### T 7, LIPID, TSH, CMP #### [facility] [address] [place] [address] Dr. Lemuel Serrato Globulin (S) [Mass/Vol] 3.9 g/dL Normal [facility] Comment on above: Performed By: #### T 7, LIPID, TSH, CMP #### [facility] [address] [address] [address] Lemuel Serrato Glucose [Mass/Vol] 96 mg/dL Normal 74-106 [facility] Comment on above: Performed By: #### T 7, LIPID, TSH, CMP #### [facility] [address] [address] [address] Lemuel Serrato Potassium [Moles/Vol] 3.9 mmol/L Normal 3.5-5.1 [facility] Comment on above: Performed By: #### T 7, LIPID, TSH, CMP #### [facility] [address] [place] [address] Dr. Lemuel Serrato Protein [Mass/Vol] 7.4 g/dL Normal 6.4-8.2 [facility] Comment on above: Performed By: #### T 7, LIPID, TSH, CMP #### [facility] [address] [address] [address] Lemuel Serrato Sodium [Moles/Vol] 139 mmol/L Normal 136-145 [facility] Comment on above: Performed By: #### T 7, LIPID, TSH, CMP #### [facility] [address] [place] [address] Dr. Lemuel Serrato Urea nitrogen [Mass/Vol] 23.0 mg/dL Critically high 7.0-18.0 [facility] Comment on above: Performed By: #### T 7, LIPID, TSH, CMP #### [facility] [address] [place] [address] Dr. Lemuel Serrato Urea nitrogen/Creatinine [Mass ratio] 19.2 mg/mg Normal [facility] Comment on above: Performed By: #### T 7, LIPID, TSH, CMP #### [facility] [address] [place] [address] Dr. Lemuel Serrato TSHon 07-15-2022 TSH 2.220 uIU/mL Normal 0.358-3.740 [facility] Comment on above: Performed By: #### T 7, LIPID, TSH, CMP #### [facility] [address] [place] [address] Dr. Lemuel Serrato Vital Signs Date Time Vital Sign Value Performing Clinician Facility 07-08-2024 13:21-0400 Body height 165.1 cm [facility] 07-08-2024 13:21-0400 Body mass index (BMI) [Ratio] 26.1 kg/m2 [facility] 07-08-2024 13:21-0400 Body temperature 97.8 [degF] [facility] 07-08-2024 13:21-0400 Body weight 71.21 kg [facility] 07-08-2024 13:21-0400 Diastolic blood pressure 86 mm[Hg] [facility] 07-08-2024 13:21-0400 Heart rate 98 /min [facility] 07-08-2024 13:21-0400 Respiratory rate 18 /min [facility] 07-08-2024 13:21-0400 SaO2% (BldA) [Mass fraction] 97 % [facility] 07-08-2024 13:21-0400 Systolic blood pressure 163 mm[Hg] [facility] 09-07-2021 15:00-0500 Body height 165.1 cm Evonne Rayray Other [facility] [employer] Other 09-07-2021 15:00-0500 Body mass index (BMI) [Ratio] 26.62 kg/m2 Evonne Ginty Other [facility] [employer] Other 09-07-2021 15:00-0500 Body temperature 100.6 [degF] Evonne Ginty Other [email or web address] Other 09-07-2021 15:00-0500 Body weight 72.58 kg Evonne Ginty Other [email or web address] Other 09-07-2021 15:00-0500 SaO2% (BldA) [Mass fraction] 96 % Evonne Seo Other [email or web address] Other Encounters Encounter Date Encounter Type Care Provider Facility Start: 11-18-2024 End: 11-18-2024 ambulatory Garrison Duenas MD Facility:[facility] Start: 11-04-2024 End: 11-04-2024 ambulatory Garrison Duenas MD Facility:[facility] Start: 10-21-2024 End: 10-21-2024 ambulatory Garrison Duenas MD Facility:[facility] Start: 07-08-2024 End: 07-08-2024 ambulatory [facility] Work Phone: Start: 07-08-2024 End: 07-08-2024 Patient encounter procedure [facility] Work Phone: Start: 11-04-2023 Refill Indu Cash MD Work Phone: [facility] Comment on above: PVD (peripheral vasc ular disease) ([facility]); Claudication ([facility]); Bilateral carotid bruits Start: 07-18-2022 Encounter for genera l adult medical examination without abnormal findings DR SKYE BOWMAN [facility] Start: 07-15-2022 End: 07-16-[address] SKYE BOWMAN Facility:[facility] Start: 07-15-2022 End: 07-16-2022 Encounter for general adult medical examination without abnormal findings DR SKYE BOWMAN Facility:[facility] Start: 06-27-2022 End: 06-28-2022 ambulatory TED CASTREJON Facility:[facility] Start: 09-07-2021 End: 09-07-2021 ambulatory Evonne Seo Other [email or web address] Other Start: 09-07-2021 Office outpatient vi sit 15 minutes Evonne Seo [facility] Start: 11-23-2017 End: 11-24-2017 Ambulatory DEFAULT PHYSICIAN Facility:[facility] Plan of Treatment Date Care Activity Detail Author Start: 07-22-2023 Tobacco Screening Tobacco Screening [facility] Start: 06-09-2023 Influenza vaccination Influenza Vaccine [facility] Start: 2022 Fall Risk Screening Fall Risk Screening [facility] Start: 12-29-2021 DTaP,Tdap and Td Vaccines (2 - Td or Tdap) DTaP,Tdap and Td Vaccines (2 - Td or Tdap) [facility] Start: 2007 Administration of varicella zoster vaccine Zoster (Shingles) Vaccine (1 of 2) [facility] Start: 1975 Adult BMI Screening Adult BMI Screening [facility] Start: 1969 Depression Screening Depression Screening [facility] Payers Date Payer Category Payer Medicare 1957 Unknown [id number] [id number]. [id number] 1955 Unknown [id number] 1955 Unknown [id number] [id number] 1957 Unknown [id number] 2.16. [id number] 1955 Unknown [id number] 2.16. [id number] 1957 Unknown [id number] 2.16. [id number] Medicare Medicare [id number] 3 [id number] Unknown Social History Date Type Detail Facility Start: 03-20-2019 End: 07-22-2022 Sex Assigned At [facility] Other Start: 07-08-2024 [facility] Start: 1955 Sex Assigned At Female F [facility] Start: 07-22-2022 Tobacco smoking stat us [facility] Smokes tobacco daily [facility] History of tobacco use Cigarette Smoker P [facility] Start: 07-22-2022 Tobacco use and exposure Smokeless tobacco non-user [facility] Start: 07-22-2022 Alcohol intake Defer [facility] Start: 03-20-2019 End: 07-22-2022 History of Social function [facility] Childcare Unknown [facility] Start: 1955 Sex Assigned At Not on file P [facility] Evaluation note 09-07-2021 Note Date & Type [...] Patient care instructions given in writting by [facility] Care At Home document [email or web address] Other Evaluation note Note Date & Type Note Facility Evaluation note Diagnosis Onset Date Contact dermatitis noneactiv e [facility] Work Phone: Evaluation note Note Date & Type Note Facility Evaluation note Diagnosis PVD (peripheral vascular disease) ([facility]) Unspecified peripheral vascular disease Claudication ([facility]) Unspecified peripheral vascular disease Bilateral carotid bruits documented in this encounter [facility] History general Narrative - Reported Note Date & Type Note Facility History general Narrative - Reported Type Medical History thalassemia minor [email or web address] Other Instructions Note Date & Type Note [...] section and content) DATE CREATED AUTHOR 03/30/2018 [facility] DATE CREATED AUTHOR AUTHOR'S ORGANIZ ATION 07/18/2022 [facility] DATE CREATED AUTHOR AUTHOR'S ORGANIZ ATION 11/24/2024 [facility] REASON FOR VISIT (unrecogniz ed section and content) Reason Comments Med Refill Care Teams (unrecognized sec tion and content) Team Status: Active Member Role Status Dates Skye Bowman MD Primary Care Provider Active Team Status: Inactive Member Role Status Dates Skye Bowman MD Primary Care Provider Active Start: July 08, 2024 End: July 08, 2024 Tsering Pineda APRN Attending Provider Active S tart: July 08, 2024 End: July 08, 2024 Toll Operator Relationship Specialty Start Date End Date Skye Bowman MD [address] [place] [address] PCP - General Family Medicine 06/30/22 Goals (unrecognized section and content) Goals may [...] BE BASED ON THE PRIMARY CLINICAL RECORDS. [facility]. provides no warranty or guarantee of the accuracy or completeness of information in this document.
--- NOTE | 2024-11-26 15:11 | ED_ITS ---
HPI HPI - General Adult General Chief complaint: Extremity Problem, Nontraumatic Stated complaint: LOWER EXTREMITY POSSIBLE INFECTION RIGHT FOOT Time Seen by Provider: 11/26/24 14:45 Source: patient Mode of arrival: Wheelchair Limitations: no limitations History of Present Illness HPI narrative: C9-year-old female to the emergency department chief complaint of infection to the right foot. Patient reports that she has been having issues with the right foot that been ongoing for several weeks. She reports some wounds that are not healing. She reports some redness around them. She reports that her toes have looked red. Her fifth digit looked blue. She reports that she saw Dr. Bowman and was placed on cefdinir and doxycycline for suspected cellulitis. She was told to come to the emergency department today as the infection does not seem to be improving. She reports severe pain in her foot. She is a current smoker. She reports a history of hypertension. Related Data Home Medications ?Medication ?Instructions ?Recorded ?Confirmed ascorbic acid (vitamin C) 1,000 mg 1 g PO DAILY 10/15/24 11/04/24 tablet (Vitamin C) cilostazol 100 mg tablet mg 10/15/24 clonidine HCl 0.1 mg tablet mg 10/15/24 echinacea 125 mg capsule 125 mg PO DAILY 10/15/24 11/04/24 lisinopril 10 mg tablet mg 10/15/24 zinc 50 mg capsule 50 mg PO DAILY 10/15/24 11/04/24 zonisamide 100 mg capsule 150 mg PO .hs 10/15/24 11/04/24 (Zonegran) baclofen 10 mg tablet 10 mg PO TID 10/30/24 11/04/24 Previous Rx's ?Medication ?Instructions ?Recorded aspirin 81 mg capsule 81 mg PO DAILY #30 caps 11/26/24 atorvastatin 40 mg tablet 40 mg PO DAILY #30 tabs 11/26/24 clopidogrel 75 mg tablet (Plavix) 75 mg PO DAILY #30 tabs 11/26/24 Allergies Allergy/AdvReac Type Severity Reaction Status Date / Time No Known Drug Allergies Allergy Verified 11/26/24 12:16 Opioid HPI Opioid Management Most Recent Opioid Data: Last Pain Scale 1 11/04/24 08:56 11/04/24 Review of Systems ROS Status of ROS 10 or more systems reviewed and unremark able except as noted in history and below [facility] Medical History Low back pain ?M54.50 - Low back pain, unspecified (ICD-10) Anemia ?D64.9 - Anemia, unspecified (ICD-10) Acid reflux ?K21.9 - Gastro-esophageal reflux disease without esophagitis (ICD-10) Smoker ?F17.200 - Nicotine dependence, unspecified, uncomplicated (ICD-10) Hypertension ?I10 - Essential (primary) hypertension (ICD-10) Surgical History History of tubal ligation ?Z98.51 - Tubal ligation status (ICD-10) H/O breast biopsy ?Z98.890 - Other specified postprocedural states (ICD-10) H/O oophorectomy Hx of cholecystectomy ?Z90.49 - Acquired absence of other specified parts of digestive tract (ICD- 10) Social History Little interest or pleasure in doing things: not at all Feeling down, depressed, or hopeless: not at all Exam Narrative Exam Narrative: VITALS: I have reviewed the triage vital signs. GENERAL: Well developed, well appearing adult in no acute distress. NEURO: Alert and oriented. Moves all extremities. Face is symmetric and expressive. EYES: PERRL. No scleral icterus or conjunctival injection. No discharge. HENT: Normocephalic, atraumatic. Hearing is grossly intact. Nares grossly patent and without discharge. Mucous membranes moist. NECK: No JVD. Patient moves neck without restriction. CARDIO: Rhythm regular. Normal rate. No murmur, rub, or gallop. Pulses equal bilaterally in the upper and lower extremity. No lower extremity edema. PULM: Lungs clear to auscultation in all mckeon. No wheezes, rales, or rhonchi. No conversational dyspnea. No splinting, stridor, or accessory muscle use. GI/: Abdomen is soft and non-tender. Normoactive bowel sounds. Right lower extremity: Diminished DP and PT pulse as compared to the contralateral extremity. Right foot is cool compared to the left. She has multiple small wounds across the top of the foot and the ankle. There is some mild erythema about them. No follow odor or discharge. The fifth toe appears dusky. There is diminished cap refill in all digits. SKIN: Warm and dry. Normal turgor. No rash or lesions appreciated. PSYCH: Mood, affect, and interaction is appropriate to the setting. Constitutional Vital Signs, click to edit/add: Last Vital Signs Temp 98.6 F 11/26/24 12:16 Pulse 80 11/26/24 19:40 Resp 16 11/26/24 19:40 BP 146/80 H 11/26/24 19:40 Pulse Ox 97 11/26/24 19:40 O2 Del Method Room Air 11/26/24 19:40 Course Vital Signs Vital signs: Vital Signs Temperature 98.6 F 11/26/24 12:16 Pulse Rate 74 11/26/24 12:16 Respiratory Rate 18 11/26/24 12:16 Blood Pressure 115/76 11/26/24 12:16 Pulse Oximetry 99 11/26/24 12:16 Oxygen Delivery Method Room Air 11/26/24 12:16 Temperature 98.6 F 11/26/24 12:16 Pulse Rate 80 11/26/24 19:40 Respiratory Rate 16 11/26/24 19:40 Blood Pressure 146/80 H 11/26/24 19:40 Pulse Oximetry 97 11/26/24 19:40 Oxygen Delivery Method Room Air 11/26/24 19:40 Medical Decision Making MDM Narrative Medical decision making narrative: 69-year-old female to the emergency department for evaluation of cellulitis to the right lower extremity. Vital stable, the patient is afebrile. She has diminished pulse on the right, cool foot. I am concerned there could be contributory near critical limb ischemia at play. Will obtain a CTA with runoff. Basic labs. Patient agrees with this plan. Lab work reviewed and noted. No major abnormalities. CTA results were reviewed with Dr. Prince, the on-call vascular surgeon, via telephone. We discussed the patient's history, presentation, medications, exam, and diagnostic workup. He would like the patient started on dual antiplatelet therapy as well as high intensity statin. He will see the patient in his office on for further evaluation. I also discussed the case with Dr. Bowman via telephone to update him on the patient's status. He agrees with plan. Discussed with the patient. Aspirin and Plavix. Atorvastatin. Patient was discharged home with vascular surgery follow-up. Medical Records Medical records reviewed: Yes I reviewed the patient's medical records Lab Data Lab results reviewed: Yes I reviewed the patient's lab results Labs: Lab Results 11/26/24 Range/Units 15:18 WBC 9.1 (4.0-11.0) 10^3/uL RBC 4.80 (4.20-5.40) 10^6/uL Hgb 9.5 L (12.0-16.0) g/dL Hct 30.8 L (36.0-48.0) % MCV 64.2 L (81.0-99.0) fL MCH 19.8 L (26.7-34.0) pg MCHC 30.8 (29.9-35.2) g/dL RDW 17.0 H (11.0-15.0) % Plt Count 229 (150-450) 10^3/uL MPV 10.0 (9.5-13.5) fL Seg Neuts % (Manual) 64.0 (43.0-75.0) Lymphocytes % (Manual) 28.0 (20.5-60.0) % Monocytes % (Manual) 8.0 (1.7-12.0) % Eosinophils % (Manual) 0.0 L (0.9-7.0) % Basophils % (Manual) 0.0 L (0.2-2.0) % Neutrophils # (Manual) 5.82 (1.4-6.5) 10^3/uL Lymphocytes # (Manual) 2.54 (1.20-3.80) 10^3/uL Monocytes # (Manual) 0.72 (0.30-0.80) 10^3/uL Eosinophils # (Manual) 0.00 (0.00-0.70) 10^3/uL Basophils # (Manual) 0.00 (0.00-0.10) 10^3/uL Hypochromasia 1+ Poikilocytosis 1+ Anisocytosis 1+ Microcytosis 2+ Ovalocytes 1+ PT 10.3 (9.0-11.6) sec INR 0.97 APTT 24.9 (22.3-36.2) sec Sodium 141 (136-145) mmol/L Potassium 3.9 (3.5-5.1) mmol/L Chloride 107 (98-107) mmol/L Carbon Dioxide 25.3 (21.0-32.0) mmol/L Anion Gap 12.6 BUN 20.0 H (7.0-18.0) mg/dL Creatinine 1.03 H (0.55-1.02) mg/dL Est GFR ( Amer) >60 (>=60 mL/min/1.73m^2) Est GFR (Non-Af Amer) 53 L (>=60 mL/min/1.73m^2) BUN/Creatinine Ratio 19.4 Glucose 113 H (74-106) mg/dL Calcium 8.8 (8.5-10.1) mg/dL Imaging Data CTA with runoff: Attestation: I have reviewed the pertinent imaging results. Discharge Plan Discharge Chief Complaint: Extremity Problem, Nontraumatic Clinical Impression: Peripheral arterial disease Patient Disposition: Home, Self-Care Time of Disposition Decision: 19:00 Condition: Good Mode of Transportation: Private Vehicle Prescriptions / Home Meds: New aspirin 81 mg capsule 81 mg PO DAILY Qty: 30 0RF clopidogrel [Plavix] 75 mg tablet 75 mg PO DAILY Qty: 30 0RF atorvastatin 40 mg tablet 40 mg PO DAILY Qty: 30 0RF No Action baclofen 10 mg tablet 10 mg PO TID Rx Instructions: 1/2 to 1 tab three times a day, as needed cilostazol 100 mg tablet clonidine HCl 0.1 mg tablet lisinopril 10 mg tablet ascorbic acid (vitamin C) [Vitamin C] 1,000 mg tablet 1 g PO DAILY zinc 50 mg capsule 50 mg PO DAILY echinacea 125 mg capsule 125 mg PO DAILY Rx Instructions: administer with meals zonisamide [Zonegran] 100 mg capsule 150 mg PO .hs Print Language: Arabic Instructions: Peripheral Artery Disease (ED) Additional Instructions: Call the office of your primary care doctor to arrange for follow-up within the above-stated timeframe. Your ED visit was focused on your acute issue and does not replace primary care. You should review your labs, imaging, and diagnoses from this ED visit with your primary care physician. There may be non-emergent/ incidental findings that need further evaluation. You should review your vital signs including blood pressure with your PCP. If you were prescribed medications you should discuss possible side-effects and drug interactions with your pharmacist. Call 911 or go to the nearest Emergency Department if you develop any new or worsening symptoms. Referrals: Janes Bowman MD [Primary Care Provider] - 1 week Maldonado Prince MD [Physician] - 11/28/24 (Keep your appointment on . Discontinue antibiotics. Begin taking aspirin, Plavix, atorvastatin as prescribed.) Discharge Date/Time: 11/26/24 19:40
[2024-11-26 15:24] LABS: Hematocrit 30.8 % (36.0-48.0); Hemoglobin 9.5 g/dL (12.0-16.0); Mean Corpuscular HGB Conc 30.8 g/dL (29.9-35.2); Mean Corpuscular Hemoglobin 19.8 pg (26.7-34.0); Mean Corpuscular Volume 64.2 fL (81.0-99.0); Platelet Count 229 10^3/uL (150-450); White Blood Count 9.1 10^3/uL (4.0-11.0)
[2024-11-26 15:38] LABS: Anion Gap 12.6; BUN Creatinine Ratio 19.4; Calcium 8.8 mg/dL (8.5-10.1); Carbon Dioxide 25.3 mmol/L (21.0-32.0); Chloride 107 mmol/L (98-107); Estimated GFR (African America >60 (>=60 mL/min/1.73m^2); Estimated GFR (Non-African Ame 53 (>=60 mL/min/1.73m^2); Glucose 113 mg/dL (74-106); Potassium 3.9 mmol/L (3.5-5.1); Sodium 141 mmol/L (136-145)
[2024-11-26 15:43] LABS: INR 0.97; Partial Thromboplastin Time 24.9 sec (22.3-36.2); Prothrombin Time 10.3 sec (9.0-11.6)
[2024-11-26 15:45] LABS: Anisocytosis 1+; Hypochromasia 1+; Lymphocytes Absolute Manual 2.54 10^3/uL (1.20-3.80); Microcytosis 2+; Monocytes Absolute Manual 0.72 10^3/uL (0.30-0.80); Poikilocytosis 1+; Segmented Neut Absolute Manual 5.82 10^3/uL (1.4-6.5)
[2024-11-26 15:46] LABS: Ovalocytes 1+
[2024-11-26 18:21] VITALS: BP 167/89; PULSE 70; O2SAT 97
[2024-11-26] MEDS: ATORVASTATIN CALCIUM 40 MG TABLET PO (19:35)
[2024-11-26] MEDS: CLOPIDOGREL BISULFATE 75 MG TABLET PO (19:35)
[2024-11-26] MEDS: ASPIRIN 81 MG TAB.CHEW PO (19:35)
[2024-11-26 19:40] VITALS: BP 146/80; PULSE 80; O2SAT 97
== END 2024-11-26 19:40 | disposition home or self-care (01) ==
PROVIDERS: Emergency Provider Student in an Organized Health Care Education/Training Program; PCP Family Medicine
DX: I73.9 Peripheral vascular disease, unspecified (principal); L53.8 Other specified erythematous conditions; I70.90 Unspecified atherosclerosis; I74.5 Embolism and thrombosis of iliac artery; I10 Essential (primary) hypertension; F17.200 Nicotine dependence, unspecified, uncomplicated
CPT/HCPCS: 36415; 73630; 75635; 80048; 85007; 85027; 85610; 85730; 99285; Q9967

== ENCOUNTER 2024-12-10 13:03 | Outpatient (OUT) | payer MEDICARE, SELFPAY ==
--- NOTE | 2024-12-10 13:00 | CA_ITS ---
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 Interpretive Statements Summary of the findings: Right leg: YESSY= 0.23; TBI= 0.41. Doppler waveforms demonstrate monophasic flow at the posterior tibial artery and absent flow at the dorsalis pedis artery. Left leg: YESSY= 0.96; TBI= 0.64. Doppler waveforms demonstrate monophasic flow at the posterior tibial and dorsalis pedis arteries. Segmental pressures: Segmental pressures indicate right inflow and right femoropopliteal disease, and left infrapopliteal disease. Pulse volume recordings: PVRs at the high thigh, below knee, and ankle levels show severely reduced flow on the right at all levels and normal waveforms on the left. Conclusion: Right and left ankle-brachial indices are suggestive of severely reduced arterial flow on the right and borderline overall arterial flow on the left at rest. Toe-brachial indices are suggestive of PAD. Segmental pressures show right inflow and right femoropopliteal disease, and left infrapopliteal disease. Pulse volume recordings indicate severely reduced right-sided and normal left-sided overall resting arterial flow. The study shows evidence of bilateral lower extremity PAD with severely reduced right lower extermiety overall arterial flow at rest. Electronically Signed On 12-12-2024 6:05:49 EST by PATRIC HEMPHILL M.D.
== END 2024-12-10 13:04 | disposition home or self-care (01) ==
LOC: CARD 13:03
PROVIDERS: PCP Family Medicine; Visit Provider Student in an Organized Health Care Education/Training Program
DX: I73.9 Peripheral vascular disease, unspecified (principal)
CPT/HCPCS: 93923

== ENCOUNTER 2024-12-11 09:01 | Outpatient (OUT) | payer MEDICARE, SELFPAY ==
--- NOTE | 2024-12-10 13:30 | CA_ITS ---
Patient Name: BHAVYA COCHRAN MR#: [id number] : 1955 Exam Date: 12/10/2024 Ordering Doctor: WILLIAM ORANTES M.D. ECHOCARDIOGRAM REPORT PROCEDURE: CA ECHO DOPPLER COMPLETE INDICATIONS: Abnormal ECG, smoker, hypertension COMPARISON: None. DESCRIPTION: COMPLETE ECHOCARDIOGRAM Real-time transthoracic echocardiography with 2D, M-mode, spectral and color flow Doppler performed. QUALITY: Technical quality was good. LEFT VENTRICLE: Normal chamber size. Mild concentric left ventricular hypertrophy. Normal systolic function. LV EF: Normal left ventricular ejection fraction, (65%). DIASTOLIC: Diastolic function is indeterminate. ATRIAL SEPTUM: Visually appears intact. LEFT ATRIUM: Mild dilatation. RIGHT ATRIUM: Normal chamber size. RIGHT VENTRICLE: Normal chamber size. Normal right ventricular systolic function. Unable to assess right-sided pressures due to lack of measurable tricuspid regurgitation. TRICUSPID VALVE: Normal mobility and thickness. No stenosis with no regurgitation. MITRAL VALVE: Normal mobility and thickness. No evidence of mitral valve stenosis. There is no mitral annular calcification. No mitral regurgitation. AORTIC VALVE: Normal trileaflet appearance. No visible sclerosis. Normal leaflet mobility. No evidence of aortic valve stenosis. No aortic regurgitation. AORTIC ROOT: Normal diameter and appearance, measuring 3.1 cm. Ascending aorta is normal in size, measuring 3.0 cm. PULMONIC VALVE: Normal thickness and mobility. No stenosis. No regurgitation. PERICARDIUM: No evidence of pericardial effusion. IVC: Collapses with inspirations. IVC is normal in size. PLEURA: CONCLUSION: 1. Mild concentric left ventricular hypertrophy with normal systolic function. Estimated LVEF is 65%. 2. Normal right ventricular size and systolic function. 3. No significant valvular dysfunction. 4. Unable to assess right-sided pressures due to lack of measurable tricuspid regurgitation. Adult Echocardiography Procedure Report Left Ventricle LVEDD (3.7 - 5.6 cm): 4.15 cm LVESD (2.2 - 4.0 cm): 3.05 cm LVIVS thickness (0.6 - 1.2 cm): 1.04 cm LVPW thickness (0.5 - 1.0 cm): 1.15 cm e': 0.11 m/s E - e': 6.17 LVOT Max Gradient: 5.10 mm[Hg] LVOT Area (cm2): 1.13 m/s Peak Velocity (LVOT): 1.13 m/s Mean Velocity (LVOT): 0.72 m/s LVOT Diameter 2.20 cm Left Atrium LA Volume Index (2D A2C): 44.79 ml/m2 Left Atrium Systolic Dimension: 3.69 cm Mitral Valve MV E to A Ratio: 0.81 Mitral Valve A-Wave Peak Velocity: 0.82 m/s Mitral Valve E-Wave Peak Velocity: 0.66 m/s Right Ventricle Aorta AO Root Diam: 3.06 cm Ascending Ao Diam: 3.02 cm Aortic Valve AoV Area (Peak Matias): 2.37 cm2, 2.37 cm2 AoV Area (VTI): 2.25 cm2, 2.25 cm2 Peak Velocity(Antegrade Flow): 1.80 m/s Peak Gradient(Antegrade Flow): 13.00 mm[Hg] Mean Velocity(Antegrade Flow): 1.08 m/s Mean Gradient(Antegrade Flow): 5.56 mm[Hg] Velocity Time Integral: 34.27 cm Tricuspid Valve Pulmonic Valve Mean Gradient: 2.56 mm[Hg] Mean Velocity: 0.74 m/s Peak Velocity: 1.13 m/s, 1.07 m/s Peak Gradient: 5.08 mm[Hg], 4.61 mm[Hg] Right Atrium Right Atrium Systolic Pressure: 42.26 ml, 42.26 ml Dictated by: Vance John M.D. on 12/10/2024 at 19:28 Approved by: Vance John M.D. on 12/10/2024 at 19:30
== END 2024-12-11 09:02 | disposition home or self-care (01) ==
PROVIDERS: PCP Family Medicine; Visit Provider Internal Medicine Cardiovascular Disease
DX: Z01.810 Encounter for preprocedural cardiovascular examination (principal); Z01.818 Encounter for other preprocedural examination; R94.31 Abnormal electrocardiogram [ECG] [EKG]; I73.9 Peripheral vascular disease, unspecified
CPT/HCPCS: 93306; 93923

== ENCOUNTER 2024-12-20 07:22 | Emergency (ER) | payer MEDICARE, SELFPAY ==
[2024-12-20] VITALS (13 sets, daily range): BP systolic 141–163; BP diastolic 79–91; PULSE 85–98; TEMP 36.9; O2SAT 97–100; BMI 26.8
--- OUTSIDE RECORDS SUMMARY | 2024-12-20 07:32 | XMS_ITS | CCD ---
Author Organization [facility]ini[employer] Care Team Providers Care Orthotist Name Role Phone PHYSICIAN, DEFAULT Unavailable Unavailable PHYSICIAN, DEFAULT Unavailable Unavailable Gintnyla, Evonne Unavailable TED CASTREJON Admitting Unavailable TED CASTREJON Attending Unavailable MARTI, DR CHEUNG Primary Care Unavailable TED CASTREJON Consulting Unavailable MARTI, DR CHEUNG Admitting Unavailable MARTI, DR CHEUNG Attending Unavailable MARTI, DR CHEUNG Primary Care Unavailable MARTI, DR CHEUNG Consulting Unavailable Skye Bowman MD Primary Care Provider [phone] Henrique AMAYA, Garrison Davis Attending Unavailable Henrique AMAYA, Garrison Davis Attending Unavailable Henrique AMAYA, Garrison Davis Attending Unavailable Skye Bowman MD Primary Care Provider ROLANDA, MOHAMAD Attending Unavailable ALGHOTHANI, MOHAMAD Referring Unavailable HOY, SKYE M Primary Care Unavailable ALGHOTHANI, MOHAMAD Referring Unavailable HOY, SKYE M Primary Care Unavailable ALGHOTHANI, MOHAMAD Referring Unavailable HOY, SKYE M Primary Care Unavailable ALGHOTHANI, MOHAMAD Referring Unavailable HOY, SKYE M Primary Care Unavailable JIM, MOHAMED F Referring Unavailable HOY, SKYE M Primary Care Unavailable JIM, MOHAMED F Admitting Unavailable JIM, MOHAMED F Attending Unavailable HOY, SKYE M Primary Care Unavailable JIM, MOHAMED F Attending Unavailable HOY, SKYE M Referring Unavailable HOY, SKYE M Primary Care Unavailable HOY, SKYE M Referring Unavailable HOY, SKYE M Primary Care Unavailable Allergies Allergy Classification Reported Allergen(s) Allergy Type Date of Onset Reaction(s) Facility (4 sources) nickel; Translations: [NICKEL] Drug Allergy 12-12-2024 Hives [facility] (4 sources) Contact Metal Agent; Translations: [CONTACT METAL AGENT] Propensity to adverse reactions to drug 12-06-2024 [facility] Medications Current Medications Medication Drug Class(es) Dates Sig (Normalized) Sig (Original) acetaminophen 500 mg oral tablet (1 source) Start: 12-17-2024 End: 12-20-2024 take 1000 mg by mouth four times daily 1,000 mg, oral, 4 times daily, First dose on Mon12/17/24 at 1900, For 72 hours atorvastatin 40 mg oral tablet (5 sources) HMG-CoA Reductase Inhibitor Start: 12-18-2024 take 40 mg by mouth once daily 40 mg, oral, Daily, First dose on Mon12/18/24 at 0900, Look-alike/soun d-alike medication - verify indication for use. baclofen 10 mg oral tablet (5 sources) gamma-Aminobutyric Acid-ergic Agonist Start: 10-30-2024 take 10 mg by mouth three times daily 10 mg, oral, 3 times daily, First dose on Mon12/17/24 at 1500 Calcium Gluconate (1 source) Start: 12-17-2024 calcium gluconate IVPB 1000 mg/50 mL (20 mg/mL premix) cilostazol 100 mg oral tablet (8 sources) Phosphodiesterase 3 Inhibitor Start: 12-17-2024 take 100 mg by mouth twice daily after mealtime 100 mg, oral, 2 times daily, First dose on Mon12/17/24 at 2100, Give 30 minutes before or 2 hours after meals. Start: 07-08-2024 take 100 mg by mouth once Cilo stazol Active 100 MG PO Once July 08, 2024 12:00am Start: 04-25-2023 End: 11-04-2023 take 1 tablet by mouth twice daily cilostazoL (PLETAL) 100 mg tablet Indications: PVD (peripheral vascular disease) ([facility]) , Claudication ([facility]) , Bilateral carotid bruits take 1 tablet by mouth twice a day 180 tablet 1 11/04/2023 cloNIDine hydrochloride 0.1 mg oral tablet (6 sources) Central alpha-2 Adrenergic Agonist Start: 07-08-2024 take 0.1 mg by mouth once daily 0.1 mg, oral, Daily, First dose on Mon12/18/24 at 0900, Look-alike/sound-alike medication - verify indication for use. Avoid rapid discontinuation. gabapentin 300 mg oral capsule (5 sources) Anti-epileptic Agent Start: 11-18-2024 take 300 mg by mouth three times daily 300 mg, oral, 3 times daily, First dose on Mon12/17/24 at 1500, Look-alike/sound-alike medication - verify indication for use. glucagon (rdna) 1 mg injection (1 source) Antihypoglycemic Agent Start: 12-17-2024 1 mg, intramuscular, As needed, low blood sugar, blood glucose less than 70 mg/dL and unconscious or NPO without IV access., Starting on Mon12/17/24 at 1450, If conscious and not NPO, immediately follow with meal tray or high protein (7Grams) snack if tray not available. If NPO, initiate IV 5% Dextrose/Water at 100 mL/hr and contact prescriber for additional orders. If blood glucose is not greater than 70 mg/dL after initial treatment, repeat treatment. 50 ml glucose 500 mg/ml prefilled syringe (2 sources) Start: 12-17-2024 15 g, oral, As needed, low blood sugar, blood glucose less than 70 mg/dL, Starting on Mon12/17/24 at 1450, If patient conscious and taking PO. If blood glucose is not greater than 70 mg/dL after initial treatment, repeat treatment. Start: 12-17-2024 25 mL, intrave nous, As needed, low blood sugar, blood glucose less than 70 mg/dL and unconscious or NPO with IV access, Starting on Mon12/17/24 at 1450, Push over 1-3 minutes STAT. If conscious and not NPO, immediately follow with meal tray or high protein (7 grams) snack if tray not available. If NPO, initiate 5% dextrose in water at 100 mL/hr and contact prescriber for additional orders. If blood glucose is not greater than 70 mg/dL after initial treatment, repeat treatment. VESICANT (RED) Warning: HYPERTONIC solution. 1 ml heparin sodium, porcine 5000 unt/ml injection (1 source) Unfractionated Heparin, Anti-coagulant Start: 12-17-2024 inject 5000 [IU] by subcutaneous injection every eight hours 5,000 Units, subcutaneous, Every 8 hours scheduled, First dose on Mon12/17/24 at 1500, Look-alike/sound-alike medication - verify indication for use. Observe for bleeding. lisinopril 10 mg oral tablet (6 sources) Angiotensin Converting Enzyme Inhibitor Start: 11-24-2024 take 10 mg by mouth once daily 10 mg, oral, Daily, First dose on Mon12/18/24 at 0900, Look-alike/sound-alike medication - verify indication for use. Start: 07-08-2024 take 10 mg by mouth once daily Lisinopril Active 10 MG PO Daily July 08, 2024 12:00am magnesium sulfate IVPB 2000 mg/50 mL in iso-osmotic water (40 mg/mL premix) (1 source) Start: 12-17-2024 magnesium sulfate IVPB 2000 mg/50 mL in iso-osmotic water (40 mg/mL premix) methocarbamol 500 mg oral tablet (1 source) Muscle Relaxant Start: 12-17-2024 End: 12-20-2024 take 750 mg by mouth three times daily 750 mg, oral, 3 times daily, First dose on Mon12/17/24 at 1500, For 3 days ondansetron (PF) (ZOFRAN) injection 4 mg (1 source) Start: 12-17-2024 take 4 mg intravenously every eight hours as needed for nausea and vomiting ondansetron (PF) (ZOFRAN) injection 4 mg oxyCODONE (1 source) Opioid Agonist Start: 12-17-2024 End: 12-20-2024 take 1 tablet by mouth every four hours as needed for pain oxyCODONE (ROXICODONE) immediate release tablet 5 mg Potassium Chloride (1 source) Start: 12-17-2024 potassium chloride (K-TAB,KLOR-CON) CR tablet 20-50 mEq potassium chloride IVPB 10 mEq/50 mL in water (0.2 mEq/mL premix) (1 source) Start: 12-17-2024 potassium chloride IVPB 10 mEq/50 mL in water (0.2 mEq/mL premix) predniSONE 50 mg oral tablet (1 source) Start: 07-08-2024 take 50 mg by mouth once daily Prednisone Active 50 MG PO Daily 5 5 July 08, 2024 12:00am sodium phosphate 20 mmol in sodium chloride 0.9 % 250 mL IVPB (1 source) Start: 12-17-2024 sodium phosphate 20 mmol in sodium chloride 0.9 % 250 mL IVPB zonisamide 100 mg oral capsule (5 sources) Anti-epileptic Agent Start: 12-17-2024 take 100 mg by mouth once daily 100 mg, oral, Daily, First dose on Mon12/17/24 at 1500, Look-alike/sound- alike medication - verify indication for use. Swallow whole, do not crush or chew. Start: 11-13-2024 take 2 capsules by m outh in the morning zonisamide (ZONEGRAN) 50 mg capsule Take 2 capsules (100 mg total) by mouth in the morning. 11/13/2024 Active Completed/Discontinued Medications Medication Drug Class(es) Dates Sig (Normalized) Sig (Original) aspirin 81 mg delayed release oral tablet (6 sources) Platelet Aggregation Inhibitor, Nonsteroidal Anti-inflammatory Drug Start: 12-17-2024 End: 12-19-2024 take 81 mg by mouth once daily 81 mg, oral, Daily, First dose on Mon12/17/24 at 1545, Do not crush or chew. calcium chloride 0.0014 meq/ml / potassium chloride 0.004 meq/ml / sodium chloride 0.103 meq/ml / sodium lactate 0.028 meq/ml injectable solution (1 source) Start: 12-18-2024 End: 12-18-2024 500 mL, intravenous, at 500 mL/hr, Administer over 1 Hours, Once, On Mon12/18/24 at 1530, For 1 dose clopidogrel 75 mg oral tablet (6 sources) P2Y12 Platelet Inhibitor Start: 12-17-2024 End: 12-17-2024 take 300 mg by mouth once 300 mg, oral, Once, On Mon12/17/24 at 1515, For 1 dose, Look-alike/sound- alike medication - verify indication for use. Start: 12-17-2024 take 75 mg by mouth once daily 75 mg, oral, Daily, First dose on Mon12/17/24 at 1500, Look-alike/sound-alike medication - verify indication for use. 2 ml midazolam 1 mg/ml cartridge (1 source) Benzodiazepine Start: 12-17-2024 End: 12-17-2024 2 mg, intravenous, As needed, anxiety, Starting on Mon12/17/24 at 0931, For 2 doses, Pre-op, May repeat in 10 minutes, if needed, if original midazolam (VERSED) ineffective, Indication: Other, Indication: anxiety 1000 ml sodium chloride 9 mg/ml injection (1 source) Start: 12-18-2024 End: 12-19-2024 take 20 mL intravenously every hour as needed 20 mL/hr, intravenous, Continuous PRN, per policy for blood product transfusion, Starting on Mon12/18/24 at 1617, For 24 hours, Initiate prior to blood product transfusion. Continue before and after each blood product transfusion. Discontinue upon completion of blood product transfusion(s). 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-08-2024 Chronic Essential hypertension (1 source) Hypertensive disorder; Translations: [Essential (primary) hypertension] 07-08-2024 Chronic Gangrene (7 sources) Critical lower limb ischemia ; Translations: [Atherosclerosis of [place] arteries of extremities with gangrene, right leg] Onset: 5 11-28-2024 Chronic Other connective tissue disease (4 sources) Pain in right lower leg; Translations: [PAIN IN RIGHT LOWER LEG] Onset: 2 Episodic Other connective tissue disease (1 source) Pain in left lower leg; Translations: [PAIN IN LEFT LOWER LEG] Onset: 2 Episodic Other nervous system disorders (1 source) Claudication Onset: 5 Episodic Other screening for suspected conditions (not mental disorders or infectious disease) (1 source) Abnormal electrocardiogram [ECG] [EKG]; Translations: [Abnormal electrocardiogram (ECG) (EKG)] Onset: 5 Episodic Peripheral and visceral atherosclerosis (12 sources) Peripheral vascular disease; Translations: [Peripheral vascular disease, unspecified] Onset: 5 11-04-2023 Chronic Unclassified (1 source) Patient encounter status 12-12-2024 Unclassified (1 source) 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 ([facility]) [I70.261] Onset: Past or Other Problems Problem Classification Problem Date Documented Da te Episodic/Chronic Immunizations and screening for infectious disease (1 source) Contact with and (suspected) exposure to other viral communicable diseases Onset: 09-07-2021 Resolved: 09-07-2021 Episodic Mood disorders (1 source) Mood disorders Onset: 12-17-2024 12-17-2024 Other circulatory disease (1 source) Carotid bruit; Translations: [Other specified symptoms and signs involving the circulatory and respiratory systems] 11-04-2023 Episodic Viral infection (1 source) COVID-19 Onset: 09-07-2021 Resolved: 09-07-2021 Results Test Name Value Interpretation Reference Range Facility CBC without diffon Erythrocyte distribution width (RBC) [Ratio] 17.8 % High 11.5 - 15.0 % [facility] Hematocrit (Bld) [Volume fraction] 25.3 % Low 35 - 47 % [facility] Hemoglobin (Bld) [Mass/Vol] 8 g/dL Low 11.7 - 15.5 g/dL [facility] Interpretation and review of laboratory results Abnormal [facility] MCH (RBC) [Entitic mass] 20 pg Low 27 - 34 pg [facility] MCHC (RBC) [Mass/Vol] 31.7 g/dL Low 32 - 36 g/dL [facility] MCV (RBC) [Entitic vol] 63 fL Low 80 - 100 fL [facility] Platelet mean volume (Bld) [Entitic vol] 9 fL 7 - 12 fL [facility] Platelets (Bld) [#/Vol] 260 10*3/uL [facility] RBC (Bld) [#/Vol] 4.01 10*6/uL [facility] WBC corrected for nucl RBC Auto (Bld) [#/Vol] 11.4 High [facility] COMPLETE BLOOD COUNTon 12-19 Erythrocyte distribution width (RBC) [Ratio] 17.8 % High 11.5-15.[address] [facility] Comment on above: Performed By: #### C PARK MAGAÑA, 82460-1, BMP #### [facility] ([id number]) [address], [address] [place] [address] Hematocrit (Bld) [Volume fraction] 25.3 % Low 35-47 [facility] Comment on above: Performed By: #### C PARK MAGAÑA, 12175-0, BMP #### [facility] ([id number]) [address], [address] [place] [address] Hemoglobin (Bld) [Mass/Vol] 8.0 g/dL Low 11.7-15.[address] [facility] Comment on above: Performed By: #### C PARK MAGAÑA, 55723-3, BMP #### [facility] ([id number]) [address], [address] [place] [address] MCH (RBC) [Entitic mass] 20.0 pg Low 27-[address] [facility] Comment on above: Performed By: #### C PARK MAGAÑA, 45911-8, BMP #### [facility] ([id number]) [address], [address] [place] [address] MCHC (RBC) [Mass/Vol] 31.7 g/dL Low 32-[address] [facility] Comment on above: Performed By: #### C PARK MAGAÑA, 87755-4, BMP #### [facility] ([id number]) [address], [address] [place] [address] MCV (RBC) [Entitic vol] 63 fL Low 80-[address] [facility] Comment on above: Performed By: #### C PARK MAGAÑA, 19435-8, BMP #### [facility] ([id number]) [address], [address] [place] [address] Platelet mean volume (Bld) [Entitic vol] 9.0 fL Normal 7-12 [facility] Comment on above: Performed By: #### C BCA, PINR, 05347-7, BMP #### [facility] ([id number]) [address], [address] [place] [address] Platelets (Bld) [#/Vol] 260 10*3/uL Normal 150-[address] [facility] Comment on above: Performed By: #### C BCA, PINR, 39737-5, BMP #### [facility] ([id number]) [address], [address] [place] [address] RBC COUNT 4.01 X10E12/L Normal 3.80-5.20 [facility] Comment on above: Performed By: #### C BCA, PINR, 87650-8, BMP #### [facility] ([id number]) [address], [address] [place] [address] WBC (Bld) [#/Vol] 11.4 10*3/uL High 4.0-11.0 [facility] Comment on above: Performed By: #### C BCA, PINR, 77697-1, BMP #### [facility] ([id number]) [address], [address] [place] [address] COMPREHENSIVE METABOLIC PANE Heron 12-19-2024 Albumin [Mass/Vol] 3.0 g/dL Low 3.2-5.3 [facility] Comment on above: Performed By: #### C BCA, PINR, 71142-9, BMP #### [facility] ([id number]) [address], [address] [place] [address] ALP [Catalytic activity/Vol] 81 U/L Normal 39-[address] [facility] Comment on above: Performed By: #### C BCA, PINR, 73876-5, BMP #### [facility] ([id number]) [address], [address] [place] [address] ALT [Catalytic activity/Vol] 26 U/L Normal 0-[address] [facility] Comment on above: Performed By: #### C GÓMEZ PINR, 14534-6, BMP #### [facility] ([id number]) [address], [address] [place] [address] Anion gap [Moles/Vol] 8 mmol/L Normal 5-[address] [facility] Comment on above: Performed By: #### C GÓMEZ PINR, 44502-6, BMP #### [facility] ([id number]) [address], [address] [place] [address] AST [Catalytic activity/Vol] 25 U/L Normal 0-[address] [facility] Comment on above: Performed By: #### C GÓMEZ, PINR, 14224-2, BMP #### [facility] ([id number]) [address], [address] [place] [address] Bilirubin [Mass/Vol] 1.7 mg/dL High 0.3-1.2 [facility] Comment on above: Performed By: #### C GÓMEZ PINR, 27010-8, BMP #### [facility] ([id number]) [address], [address] [place] [address] Calcium [Mass/Vol] 8.2 mg/dL Low 8.5-10.5 [facility] Comment on above: Performed By: #### C GÓMEZ PINR, 82981-6, BMP #### [facility] ([id number]) [address], [address] [place] [address] Chloride [Moles/Vol] 109 mmol/L Normal 98-109 [facility] Comment on above: Performed By: #### C BCA, PINR, 47058-6, BMP #### [facility] ([id number]) [address], [address] [place] [address] CO2 [Moles/Vol] 21 mmol/L Low 22-[address] [facility] Comment on above: Performed By: #### C BCA, PINR, 67969-4, BMP #### [facility] ([id number]) [address], [address] [place] [address] Creatinine [Mass/Vol] 1.06 mg/dL High 0.40-1.[address] [facility] Comment on above: Result Comment: METH OD TRACEABLE TO IDMS STANDARD Performed By: #### C BCA, PINR, 33282-3, BMP #### [facility] ([id number]) [address], [address] [place] [address] GFR/1.73 sq M.predicted among non-blacks MDRD (S/P/Bld) [Vol rate/Area] 58 mL/min/{1.73_m2} Low >[address] [facility] Comment on above: Result Comment: Reported eGFR is based on the CKD-EPI 2020 equation that does not use a race coefficient. Performed By: #### C BCA, PINR, 40297-0, BMP #### [facility] ([id number]) [address], [address] [place] [address] Glucose [Mass/Vol] 121 mg/dL High 65-99 [facility] Comment on above: Performed By: #### C BCA, PINR, 31011-1, BMP #### [facility] ([id number]) [address], [address] [place] [address] Potassium [Moles/Vol] 3.8 mmol/L Normal 3.5-5.[address] [facility] Comment on above: Performed By: #### C BCA, PINR, 95460-0, BMP #### [facility] ([id number]) [address], [address] [place] [address] Protein [Mass/Vol] 5.8 g/dL Low 6.0-8.0 [facility] Comment on above: Performed By: #### C BCA, PINR, 97860-8, BMP #### [facility] ([id number]) [address], [address] [place] [address] Sodium [Moles/Vol] 138 mmol/L Normal 134-146 [facility] Comment on above: Performed By: #### C BCA, PINR, 86380-4, BMP #### [facility] ([id number]) [address], [address] [place] [address] Urea nitrogen [Mass/Vol] 20 mg/dL Normal 5-[address] [facility] Comment on above: Performed By: #### C BCA, PINR, 44255-3, BMP #### [facility] ([id number]) [address], [address] [place] [address] Comprehensive metabolic pane heron 12-19-2024 Albumin [Mass/Vol] 3 g/dL Low 3.2 - 5.3 g/dL [facility] ALP [Catalytic activity/Vol] 81 U/L 39 - 130 U/L [facility] ALT No additional P-5'-P [Catalytic activity/Vol] 26 U/L 0 - 31 U/L [facility] Anion gap [Moles/Vol] 8 mmol/L 5 - 15 mmol/L [facility] AST [Catalytic activity/Vol] 25 U/L 0 - 41 U/L [facility] Bilirubin [Mass/Vol] 1.7 mg/dL High 0.3 - 1 .2 mg/dL [facility] Calcium [Mass/Vol] 8.2 mg/dL Low 8.5 - 10. 5 mg/dL [facility] Chloride [Moles/Vol] 109 mmol/L 98 - 10 9 mmol/L [facility] CO2 [Moles/Vol] 21 mmol/L Low 22 - 32 mmol/L [facility] Creatinine [Mass/Vol] 1.06 mg/dL High 0.40 - 1.00 mg/dL [facility] Comment on above: METHOD TRACEABLE TO IDNE STANDARD eGFR (CKD-EPI)non-race dependent 58 Low - PINF [facility] Comment on above: Reported eGFR is based on the CKD-EPI 2020 equation that does not use a race coefficient. Glucose [Mass/Vol] 121 mg/dL High 65 - 99 mg/dL [facility] Interpretation and review of laboratory results Abnormal [facility] Potassium [Moles/Vol] 3.8 mmol/L 3.5 - 5.0 mmol/L [facility] Protein [Mass/Vol] 5.8 g/dL Low 6.0 - 8.0 g/dL [facility] Sodium [Moles/Vol] 138 mmol/L 134 - 146 mmol/L [facility] Urea nitrogen [Mass/Vol] 20 mg/dL 5 - 27 mg/dL [facility] Crossmatch RBC:Number of Uni ts: 1on 12-19-2024 BB Type Barcode 9500 [facility] Blood component type [id number] [facility] Crossmatch Compatible [facility] Expiration Date [id number] [facility] Status of unit TRANSFUSED [facility] Unit ABO O [facility] Unit number [id number] [facility] RH Negative [facility] Hemoglobin and hematocrit, b loodon 12-19-2024 Hematocrit (Bld) [Volume fraction] 25.2 % Low 35 - 47 % [facility] Hemoglobin (Bld) [Mass/Vol] 8.1 g/dL Low 11.7 - 15.5 g/dL [facility] Interpretation and review of laboratory results Abnormal [facility] MAGNESIUMon 12-19-2024 Magnesium [Mass/Vol] 1.8 mg/dL Normal 1.8-2.6 [facility] Comment on above: Performed By: #### C BCA, PINR, 60068-1, BMP #### [facility] ([id number]) [address] [place] [address] Magnesiumon 12-19-2024 Magnesium [Mass/Vol] 1.8 mg/dL 1.8 - 2 .6 mg/dL [facility] No Panel Informationon 12-19 [facility] PHOSPHORUSon 12-19-2024 Phosphate [Mass/Vol] 3.1 mg/dL Normal 2.4-4.9 [facility] Comment on above: Performed By: #### C PARK MAGAÑA, 85521-4, SARAI #### [facility] ([id number]) [address] [place] [address] Phosphoruson 12-19-2024 Phosphate [Mass/Vol] 3.1 mg/dL 2.4 - 4 .9 mg/dL [facility] ABO Rh Repeaton 12-18-2024 ABO O [facility] Rh Nom (Bld) Positive [facility] CBC without diffon Erythrocyte distribution width (RBC) [Ratio] 15.8 % High 11.5 - 15.0 % [facility] Hematocrit (Bld) [Volume fraction] 22.8 % Low 35 - 47 % [facility] Hemoglobin (Bld) [Mass/Vol] 7.3 g/dL Low 11.7 - 15.5 g/dL [facility] Interpretation and review of laboratory results Abnormal [facility] MCH (RBC) [Entitic mass] 19.4 pg Low 27 - 34 pg [facility] MCHC (RBC) [Mass/Vol] 31.9 g/dL Low 32 - 36 g/dL [facility] MCV (RBC) [Entitic vol] 61 fL Low 80 - 100 fL [facility] Platelet mean volume (Bld) [Entitic vol] 8.9 fL 7 - 12 fL [facility] Platelets (Bld) [#/Vol] 291 10*3/uL [facility] RBC (Bld) [#/Vol] 3.75 10*6/uL Low [facility] WBC corrected for nucl RBC Auto (Bld) [#/Vol] 12.8 High [facility] COMPLETE BLOOD COUNTon 12-18 Erythrocyte distribution width (RBC) [Ratio] 15.8 % High 11.5-15.[address] [facility] Comment on above: Performed By: #### C PARK MAGAÑA, 13310-6, BMP #### [facility] ([id number]) [address], [address] [place] [address] Hematocrit (Bld) [Volume fraction] 22.8 % Low 35-47 [facility] Comment on above: Performed By: #### C GÓMEZ, PINR, 30788-6, BMP #### [facility] ([id number]) [address], [address] [place] [address] Hemoglobin (Bld) [Mass/Vol] 7.3 g/dL Low 11.7-15.[address] [facility] Comment on above: Performed By: #### C GÓMEZ PINR, 57948-3, BMP #### [facility] ([id number]) [address], [address] [place] [address] MCH (RBC) [Entitic mass] 19.4 pg Low 27-[address] [facility] Comment on above: Performed By: #### C GÓMEZ, PINR, 22127-2, BMP #### [facility] ([id number]) [address], [address] [place] [address] MCHC (RBC) [Mass/Vol] 31.9 g/dL Low 32-[address] [facility] Comment on above: Performed By: #### C GÓMEZ, PINR, 39500-0, BMP #### [facility] ([id number]) [address], [address] [place] [address] MCV (RBC) [Entitic vol] 61 fL Low 80-[address] [facility] Comment on above: Performed By: #### C GÓMEZ, PINR, 49994-7, BMP #### [facility] ([id number]) [address], [address] [place] [address] Platelet mean volume (Bld) [Entitic vol] 8.9 fL Normal 7-12 [facility] Comment on above: Performed By: #### C GÓMEZ, PINR, 01420-5, BMP #### [facility] ([id number]) [address], [address] [place] [address] Platelets (Bld) [#/Vol] 291 10*3/uL Normal 150-[address] [facility] Comment on above: Performed By: #### C BCA, PINR, 31087-5, BMP #### [facility] ([id number]) [address], [address] [place] [address] RBC COUNT 3.75 X10E12/L Low 3.80-5.20 [facility] Comment on above: Performed By: #### C GÓMEZ, PINR, 66418-2, BMP #### [facility] ([id number]) [address], [address] [place] [address] WBC (Bld) [#/Vol] 12.8 10*3/uL High 4.0-11.0 [facility] Comment on above: Performed By: #### C GÓMEZ, PINR, 40250-4, BMP #### [facility] ([id number]) [address], [address] [place] [address] COMPREHENSIVE METABOLIC PANE Heron 12-18-2024 Albumin [Mass/Vol] 3.1 g/dL Low 3.2-5.3 [facility] Comment on above: Performed By: #### C ASHWIN, , 2776-10, CBC #### [facility] ([id number]) [address], [address] [place] [address] ALP [Catalytic activity/Vol] 84 U/L Normal 39-[address] [facility] Comment on above: Performed By: #### C ASHWIN, , 2776-10, CBC #### [facility] ([id number]) [address], [address] [place] [address] ALT [Catalytic activity/Vol] 35 U/L High 0-[address] [facility] Comment on above: Performed By: #### C ASHWIN, , 2776-10, CBC #### [facility] ([id number]) [address], [address] [place] [address] Anion gap [Moles/Vol] 8 mmol/L Normal 5-[address] [facility] Comment on above: Performed By: #### C ASHWIN, , 2776-10, CBC #### [facility] ([id number]) [address], [address] [place] [address] AST [Catalytic activity/Vol] 27 U/L Normal 0-[address] [facility] Comment on above: Performed By: #### C ASHWIN, , 2776-10, CBC #### [facility] ([id number]) [address], [address] [place] [address] Bilirubin [Mass/Vol] 0.5 mg/dL Normal 0.3-1.2 [facility] Comment on above: Performed By: #### C ASHWIN, , 2776-10, CBC #### [facility] ([id number]) [address], [address] [place] [address] Calcium [Mass/Vol] 8.4 mg/dL Low 8.5-10.5 [facility] Comment on above: Performed By: #### C ASHWIN, , 2776-10, CBC #### [facility] ([id number]) [address], [address] [place] [address] Chloride [Moles/Vol] 107 mmol/L Normal 98-109 [facility] Comment on above: Performed By: #### C ASHWIN, , 2776-10, CBC #### [facility] ([id number]) [address], [address] [place] [address] CO2 [Moles/Vol] 23 mmol/L Normal 22-[address] [facility] Comment on above: Performed By: #### C ASHWIN, , 2776-10, CBC #### [facility] ([id number]) [address], [address] [place] [address] Creatinine [Mass/Vol] 1.03 mg/dL High 0.40-1.[address] [facility] Comment on above: Result Comment: METH OD TRACEABLE TO IDMS STANDARD Performed By: #### C ASHWIN, , 2776-10, CBC #### [facility] ([id number]) [address], [address] [place] [address] GFR/1.73 sq M.predicted among non-blacks MDRD (S/P/Bld) [Vol rate/Area] 60 mL/min/{1.73_m2} Normal >[address] [facility] Comment on above: Result Comment: Reported eGFR is based on the CKD-EPI 2020 equation that does not use a race coefficient. Performed By: #### C ASHWIN, , 2776-10, CBC #### [facility] ([id number]) [address], [address] [place] [address] Glucose [Mass/Vol] 156 mg/dL High 65-99 [facility] Comment on above: Performed By: #### C ASHWIN, , 2776-10, CBC #### [facility] ([id number]) [address], [address] [place] [address] Potassium [Moles/Vol] 3.9 mmol/L Normal 3.5-5.[address] [facility] Comment on above: Performed By: #### C ASHWIN, , 2776-10, CBC #### [facility] ([id number]) [address], [address] [place] [address] Protein [Mass/Vol] 5.9 g/dL Low 6.0-8.0 [facility] Comment on above: Performed By: #### C ASHWIN, , 2776-10, CBC #### [facility] ([id number]) [address], [address] [place] [address] Sodium [Moles/Vol] 138 mmol/L Normal 134-146 [facility] Comment on above: Performed By: #### [place], 286[address]-0, 2777-1, CBC #### [facility] ([id number]) [address], [address] [place] [address] Urea nitrogen [Mass/Vol] 21 mg/dL Normal 5-[address] [facility] Comment on above: Performed By: #### [place], 09294-2, 2777-1, CBC #### [facility] ([id number]) [address], [address] [place] [address] Comprehensive metabolic pane heron 12-18-2024 Albumin [Mass/Vol] 3.1 g/dL Low 3.2 - 5.3 g/dL [facility] ALP [Catalytic activity/Vol] 84 U/L 39 - 130 U/L [facility] ALT No additional P-5'-P [Catalytic activity/Vol] 35 U/L High 0 - 31 U/L [facility] Anion gap [Moles/Vol] 8 mmol/L 5 - 15 mmol/L [facility] AST [Catalytic activity/Vol] 27 U/L 0 - 41 U/L [facility] Bilirubin [Mass/Vol] 0.5 mg/dL 0.3 - 1 .2 mg/dL [facility] Calcium [Mass/Vol] 8.4 mg/dL Low 8.5 - 10. 5 mg/dL [facility] Chloride [Moles/Vol] 107 mmol/L 98 - 10 9 mmol/L [facility] CO2 [Moles/Vol] 23 mmol/L 22 - 32 mmol/L [facility] Creatinine [Mass/Vol] 1.03 mg/dL High 0.40 - 1.00 mg/dL [facility] Comment on above: METHOD TRACEABLE TO IDNE STANDARD eGFR (CKD-EPI)non-race dependent 60 - PINF [facility] Comment on above: Reported eGFR is based on the CKD-EPI 2020 equation that does not use a race coefficient. Glucose [Mass/Vol] 156 mg/dL High 65 - 99 mg/dL [facility] Interpretation and review of laboratory results Abnormal [facility] Potassium [Moles/Vol] 3.9 mmol/L 3.5 - 5.0 mmol/L [facility] Protein [Mass/Vol] 5.9 g/dL Low 6.0 - 8.0 g/dL [facility] Sodium [Moles/Vol] 138 mmol/L 134 - 146 mmol/L [facility] Urea nitrogen [Mass/Vol] 21 mg/dL 5 - 27 mg/dL [facility] HGBon 12-18-2024 Hematocrit (Bld) [Volume fraction] 25.2 % Low 35-47 [facility] Comment on above: Performed By: #### C PARK MAGAÑA, 22543-9, BMP #### [facility] ([id number]) [address], [address] [place] [address] Hemoglobin (Bld) [Mass/Vol] 8.1 g/dL Low 11.7-15.[address] [facility] Comment on above: Performed By: #### C GÓMEZ PINR, 40136-5, BMP #### [facility] ([id number]) [address], [address] [place] [address] MAGNESIUMon 12-18-2024 Magnesium [Mass/Vol] 2.0 mg/dL Normal 1.8-2.6 [facility] Comment on above: Performed By: #### C GÓMEZ PINR, 90146-6, BMP #### [facility] ([id number]) [address], [address] [place] [address] Magnesiumon 12-18-2024 Magnesium [Mass/Vol] 2 mg/dL 1.8 - 2 .6 mg/dL [facility] No Panel Informationon 12-18 [facility] PHOSPHORUSon 12-18-2024 Phosphate [Mass/Vol] 3.2 mg/dL Normal 2.4-4.9 [facility] Comment on above: Performed By: #### C BCA, PINR, 93714-8, BMP #### [facility] ([id number]) [address], [address] [place] [address] Phosphoruson 12-18-2024 Phosphate [Mass/Vol] 3.2 mg/dL 2.4 - 4 .9 mg/dL [facility] BASIC METABOLIC PANLon 12-17 Anion gap [Moles/Vol] 8 mmol/L Normal 5-[address] [facility] Comment on above: Performed By: #### C BCA, BMP #### [facility] ([id number]) [address], [address] [place] [address] Calcium [Mass/Vol] 8.4 mg/dL Low 8.5-10.5 [facility] Comment on above: Performed By: #### C GÓMEZ, BMP #### [facility] ([id number]) [address], [address] [place] [address] Chloride [Moles/Vol] 109 mmol/L Normal 98-109 [facility] Comment on above: Performed By: #### C GÓMEZ, BMP #### [facility] ([id number]) [address], [address] [place] [address] CO2 [Moles/Vol] 21 mmol/L Low 22-[address] [facility] Comment on above: Performed By: #### C GÓMEZ, BMP #### [facility] ([id number]) [address], [address] [place] [address] Creatinine [Mass/Vol] 0.91 mg/dL Normal 0.40-1.[address] [facility] Comment on above: Result Comment: METH OD TRACEABLE TO IDMS STANDARD Performed By: #### C GÓMEZ, BMP #### [facility] ([id number]) [address], [address] [place] [address] GFR/1.73 sq M.predicted among non-blacks MDRD (S/P/Bld) [Vol rate/Area] 69 mL/min/{1.73_m2} Normal >[address] [facility] Comment on above: Result Comment: Reported eGFR is based on the CKD-EPI 2020 equation that does not use a race coefficient. Performed By: #### C GÓMEZ, BMP #### [facility] ([id number]) [address] [place] [address] Glucose [Mass/Vol] 154 mg/dL High 65-99 [facility] Comment on above: Performed By: #### C BCA, BMP #### [facility] ([id number]) [address] [facility] [place] [address] Potassium [Moles/Vol] 4.1 mmol/L Normal 3.5-5.[address] [facility] Comment on above: Performed By: #### C BCA, BMP #### [facility] ([id number]) [address], [address] [place] [address] Sodium [Moles/Vol] 138 mmol/L Normal 134-146 [facility] Comment on above: Performed By: #### C BCA, BMP #### [facility] ([id number]) [address], [address] [place] [address] Urea nitrogen [Mass/Vol] 14 mg/dL Normal 5-[address] [facility] Comment on above: Performed By: #### C BCA, BMP #### [facility] ([id number]) [address], [address] [place] [address] Basic Metabolic Panelon 03- Anion gap [Moles/Vol] 8 mmol/L 5 - 15 mmol/L [facility] Calcium [Mass/Vol] 8.4 mg/dL Low 8.5 - 10. 5 mg/dL [facility] Chloride [Moles/Vol] 109 mmol/L 98 - 10 9 mmol/L [facility] CO2 [Moles/Vol] 21 mmol/L Low 22 - 32 mmol/L [facility] Creatinine [Mass/Vol] 0.91 mg/dL 0.40 - 1.00 mg/dL [facility] Comment on above: METHOD TRACEABLE TO IDNE STANDARD eGFR (CKD-EPI)non-race dependent 69 - PINF [facility] Comment on above: Reported eGFR is based on the CKD-EPI 2020 equation that does not use a race coefficient. Glucose [Mass/Vol] 154 mg/dL High 65 - 99 mg/dL [facility] Interpretation and review of laboratory results Abnormal [facility] Potassium [Moles/Vol] 4.1 mmol/L 3.5 - 5.0 mmol/L [facility] Sodium [Moles/Vol] 138 mmol/L 134 - 146 mmol/L [facility] Urea nitrogen [Mass/Vol] 14 mg/dL 5 - 27 mg/dL [facility] CBC AND AUTO DIFFon 12-18-19 25 ABSOLUTE BASOPHIL 0.0 X10E9/L Normal 0.0-0.2 [facility] Comment on above: Performed By: #### C GÓMEZ, BMP #### [facility] ([id number]) [address], [address] [place] [address] ABSOLUTE NEUTROPHIL 9.5 X10E9/L High 1.5-6.6 [facility] Comment on above: Performed By: #### Cody MAGAÑA, BMP #### [facility] ([id number]) [address], [address] [place] [address] Basophils/100 WBC (Bld) 0.4 % Normal [facility] Comment on above: Performed By: #### Cody MAGAÑA, BMP #### [facility] ([id number]) [address], [address] [place] [address] Eosinophils (Bld) [#/Vol] 0.0 10*3/uL Normal 0.0-0.[address] [facility] Comment on above: Performed By: #### Cody MAGAÑA, BMP #### [facility] ([id number]) [address] [place] [address] Eosinophils/100 WBC (Bld) 0.3 % Normal [facility] Comment on above: Performed By: #### C GÓMEZ, BMP #### [facility] ([id number]) [address], [address] [place] [address] Erythrocyte distribution width (RBC) [Ratio] 16.1 % High 11.5-15.[address] [facility] Comment on above: Performed By: #### C BCA, BMP #### [facility] ([id number]) [address], [address] [place] [address] Hematocrit (Bld) [Volume fraction] 24.0 % Low 35-47 [facility] Comment on above: Performed By: #### C GÓMEZ, BMP #### [facility] ([id number]) [address], [address] [place] [address] Hemoglobin (Bld) [Mass/Vol] 7.6 g/dL Low 11.7-15.[address] [facility] Comment on above: Performed By: #### C GÓMEZ, BMP #### [facility] ([id number]) [address], [address] [place] [address] Lymphocytes (Bld) [#/Vol] 1.0 10*3/uL Normal 1.0-3.[address] [facility] Comment on above: Performed By: #### C GÓMEZ, BMP #### [facility] ([id number]) [address], [address] [place] [address] Lymphocytes/100 WBC (Bld) 9.1 % Normal [facility] Comment on above: Performed By: #### C GÓMEZ, BMP #### [facility] ([id number]) [address], [address] [place] [address] MCH (RBC) [Entitic mass] 19.1 pg Low 27-[address] [facility] Comment on above: Performed By: #### C BCA, BMP #### [facility] ([id number]) [address], [address] [place] [address] MCHC (RBC) [Mass/Vol] 31.6 g/dL Low 32-[address] [facility] Comment on above: Performed By: #### C GÓMEZ, BMP #### [facility] ([id number]) [address], [address] [place] [address] MCV (RBC) [Entitic vol] 60 fL Low 80-[address] [facility] Comment on above: Performed By: #### C GÓMEZ, BMP #### [facility] ([id number]) [address], [address] [place] [address] Monocytes (Bld) [#/Vol] 0.3 10*3/uL Normal 0-0.[address] [facility] Comment on above: Performed By: #### C GÓMEZ, BMP #### [facility] ([id number]) [address], [address] [place] [address] Monocytes/100 WBC (Bld) 2.8 % Normal [facility] Comment on above: Performed By: #### Cody MAGAÑA, BMP #### [facility] ([id number]) [address], [address] [place] [address] Neutrophils/100 WBC (Bld) 87.4 % Normal [facility] Comment on above: Performed By: #### C GÓMEZ, BMP #### [facility] ([id number]) [address], [address] [place] [address] OVALOCYTE 2+ Abnormal NONE [facility] Comment on above: Performed By: #### C GÓMEZ, BMP #### [facility] ([id number]) [address] [place] [address] Platelet mean volume (Bld) [Entitic vol] 8.1 fL Normal 7-12 [facility] Comment on above: Performed By: #### Cody MAGAÑA, BMP #### [facility] ([id number]) [address], [address] [place] [address] Platelets (Bld) [#/Vol] 288 10*3/uL Normal 150-[address] [facility] Comment on above: Performed By: #### Cody MAGAÑA, BMP #### [facility] ([id number]) [address], [address] [place] [address] POLYCHROMASIA 1+ Abnormal NONE [facility] Comment on above: Performed By: #### Cody MAGAÑA, BMP #### [facility] ([id number]) [address], [address] [place] [address] RBC COUNT 3.98 X10E12/L Normal 3.80-5.20 [facility] Comment on above: Performed By: #### Cody MAGAÑA, BMP #### [facility] ([id number]) [address], [address] [place] [address] WBC (Bld) [#/Vol] 10.9 10*3/uL Normal 4.0-11.0 [facility] Comment on above: Performed By: #### Cody MAGAÑA, BMP #### [facility] ([id number]) [address], [address] [place] [address] CBC auto differentialon 12-07 Basophils (Bld) [#/Vol] 0 10*3/uL [facility] Basophils/100 WBC (Bld) 0.4 % [facility] Eosinophils (Bld) [#/Vol] 0 10*3/uL [facility] Eosinophils/100 WBC (Bld) 0.3 % [facility] Erythrocyte distribution width (RBC) [Ratio] 16.1 % High 11.5 - 15.0 % [facility] Hematocrit (Bld) [Volume fraction] 24 % Low 35 - 47 % [facility] Hemoglobin (Bld) [Mass/Vol] 7.6 g/dL Low 11.7 - 15.5 g/dL [facility] Interpretation and review of laboratory results Abnormal [facility] Lymphocytes (Bld) [#/Vol] 1 10*3/uL [facility] Lymphocytes/100 WBC (Bld) 9.1 % [facility] MCH (RBC) [Entitic mass] 19.1 pg Low 27 - 34 pg [facility] MCHC (RBC) [Mass/Vol] 31.6 g/dL Low 32 - 36 g/dL [facility] MCV (RBC) [Entitic vol] 60 fL Low 80 - 100 fL [facility] Monocytes (Bld) [#/Vol] 0.3 10*3/uL [facility] Monocytes/100 WBC (Bld) 2.8 % [facility] Neutrophils (Bld) [#/Vol] 9.5 10*3/uL High [facility] Neutrophils/100 WBC (Bld) 87.4 % [facility] Ovalocytes LM Ql (Bld) 2+ Abnormal NONE^NONE [facility] Platelet mean volume (Bld) [Entitic vol] 8.1 fL 7 - 12 fL [facility] Platelets (Bld) [#/Vol] 288 10*3/uL [facility] Polychromasia LM Ql (Bld) 1+ Abnormal NONE^NONE [facility] RBC (Bld) [#/Vol] 3.98 10*6/uL [facility] WBC corrected for nucl RBC Auto (Bld) [#/Vol] 10.9 [facility] Ionized magnesiumon 12-18-19 Magnesium Ionized ISE (Bld) [Moles/Vol] 0.5 mmol/L 0.45 - 0.74 mmol/L [facility] Comment on above: NEW REFERENCE RANGE Magnesium Ionized ISE (Bld) [Moles/Vol]on 12-17-2024 [facility] Magnesium [Moles/Vol] 0.50 mmol/L Normal 0.45-0.[address] [facility] Comment on above: Result Comment: NEW REFERENCE RANGE Performed By: #### 7 3572-0 #### [facility] ([id number]) [address] [place] [address] RFA Guidance for vascular ac cess of Vesselon 12-17-2024 Please refer to the vascular OP note for a dictation on this exam. [facility] Antibody IDon 12-13-2024 Antibody ID Detected [facility] Complete Antibody Screenon 0 12-13-2024 [facility] Laboratory - Blood bankon Rh Nom (Bld) Positive [facility] No Panel Informationon 12-13 ABO O [facility] APTTon 12-12-2024 aPTT Coag (PPP) [Time] 29 s [facility] BASIC METABOLIC PANLon 12-12 Anion gap [Moles/Vol] 11 mmol/L Normal 5-[address] [facility] Comment on above: Performed By: #### C BCA, PINR, 35396-1, BMP #### [facility] ([id number]) [address], [address] [place] [address] Calcium [Mass/Vol] 9.5 mg/dL Normal 8.5-10.5 [facility] Comment on above: Performed By: #### C BCA, PINR, 96334-5, BMP #### [facility] ([id number]) [address], [address] [place] [address] Chloride [Moles/Vol] 105 mmol/L Normal 98-109 [facility] Comment on above: Performed By: #### C BCA, PINR, 15098-2, BMP #### [facility] ([id number]) [address], [address] [place] [address] CO2 [Moles/Vol] 23 mmol/L Normal 22-[address] [facility] Comment on above: Performed By: #### C BCA, PINR, 28975-9, BMP #### [facility] ([id number]) [address], [address] [place] [address] Creatinine [Mass/Vol] 1.03 mg/dL High 0.40-1.[address] [facility] Comment on above: Result Comment: METH OD TRACEABLE TO IDMS STANDARD Performed By: #### C GÓMEZ, PINR, 47440-0, BMP #### [facility] ([id number]) [address], [address] [place] [address] GFR/1.73 sq M.predicted among non-blacks MDRD (S/P/Bld) [Vol rate/Area] 60 mL/min/{1.73_m2} Normal >[address] [facility] Comment on above: Result Comment: Reported eGFR is based on the CKD-EPI 2020 equation that does not use a race coefficient. Performed By: #### C GÓMEZ PINR, 20380-6, BMP #### [facility] ([id number]) [address], [address] [place] [address] Glucose [Mass/Vol] 107 mg/dL High 65-99 [facility] Comment on above: Performed By: #### C GÓMEZ, PINR, 83312-4, BMP #### [facility] ([id number]) [address] [place] [address] Potassium [Moles/Vol] 3.5 mmol/L Normal 3.5-5.[address] [facility] Comment on above: Performed By: #### C BCA, PINR, 79291-0, BMP #### [facility] ([id number]) [address], [address] [place] [address] Sodium [Moles/Vol] 139 mmol/L Normal 134-146 [facility] Comment on above: Performed By: #### C BCA, PINR, 51573-9, BMP #### [facility] ([id number]) [address], [address] [place] [address] Urea nitrogen [Mass/Vol] 16 mg/dL Normal 5-[address] [facility] Comment on above: Performed By: #### C BCA, PINR, 72598-1, BMP #### [facility] ([id number]) [address] [place] [address] Basic Metabolic Panelon Anion gap [Moles/Vol] 11 mmol/L 5 - 15 mmol/L [facility] Calcium [Mass/Vol] 9.5 mg/dL 8.5 - 10. 5 mg/dL [facility] Chloride [Moles/Vol] 105 mmol/L 98 - 10 9 mmol/L [facility] CO2 [Moles/Vol] 23 mmol/L 22 - 32 mmol/L [facility] Creatinine [Mass/Vol] 1.03 mg/dL High 0.40 - 1.00 mg/dL [facility] Comment on above: METHOD TRACEABLE TO IDNE STANDARD eGFR (CKD-EPI)non-race dependent 60 - PINF [facility] Comment on above: Reported eGFR is based on the CKD-EPI 2020 equation that does not use a race coefficient. Glucose [Mass/Vol] 107 mg/dL High 65 - 99 mg/dL [facility] Interpretation and review of laboratory results Abnormal [facility] Potassium [Moles/Vol] 3.5 mmol/L 3.5 - 5.0 mmol/L [facility] Sodium [Moles/Vol] 139 mmol/L 134 - 146 mmol/L [facility] Urea nitrogen [Mass/Vol] 16 mg/dL 5 - 27 mg/dL [facility] CBC AND AUTO DIFFon 12-13-19 25 ABSOLUTE BASOPHIL 0.1 X10E9/L Normal 0.0-0.2 [facility] [facility] Comment on above: Performed By: #### C BCA, PINR, 86627-5, BMP #### [facility] ([id number]) [address], [address] [place] [address] ACANTHOCYTE 1+ Abnormal NONE [facility] Comment on above: Performed By: #### C BCA, PINR, 41949-0, BMP #### [facility] ([id number]) [address], [address] [place] [address] Band form neutrophils/100 WBC (Bld) 1.0 % Normal [facility] Comment on above: Performed By: #### C GÓMEZ, PINR, 21959-9, BMP #### [facility] ([id number]) [address], [address] [place] [address] Basophils/100 WBC (Bld) 1.0 % Normal [facility] Comment on above: Performed By: #### C GÓMEZ, PINR, 56338-0, BMP #### [facility] ([id number]) [address], [address] [place] [address] Erythrocyte distribution width (RBC) [Ratio] 16.6 % High 11.5-15.[address] [facility] Comment on above: Performed By: #### C GÓMEZ, PINR, 41425-5, BMP #### [facility] ([id number]) [address], [address] [place] [address] Hematocrit (Bld) [Volume fraction] 30.2 % Low 35-47 [facility] Comment on above: Performed By: #### C GÓMEZ, PINR, 94979-0, BMP #### [facility] ([id number]) [address], [address] [place] [address] Hemoglobin (Bld) [Mass/Vol] 9.7 g/dL Low 11.7-15.[address] [facility] Comment on above: Performed By: #### Cody MAGAÑA, PINR, 19492-6, BMP #### [facility] ([id number]) [address], [address] [place] [address] Lymphocytes (Bld) [#/Vol] 2.5 10*3/uL Normal 1.0-3.[address] [facility] Comment on above: Performed By: #### C GÓMEZ, PINR, 56703-3, BMP #### [facility] ([id number]) [address], [address] [place] [address] Lymphocytes/100 WBC (Bld) 26.7 % Normal [facility] Comment on above: Performed By: #### C GÓMEZ, PINR, 94276-7, BMP #### [facility] ([id number]) [address], [address] [place] [address] MCH (RBC) [Entitic mass] 19.7 pg Low 27-[address] [facility] Comment on above: Performed By: #### C GÓMEZ, PINR, 08448-2, BMP #### [facility] ([id number]) [address], [address] [place] [address] MCHC (RBC) [Mass/Vol] 32.2 g/dL Normal 32-[address] [facility] Comment on above: Performed By: #### C GÓMEZ, PINR, 65245-9, BMP #### [facility] ([id number]) [address], [address] [place] [address] MCV (RBC) [Entitic vol] 61 fL Low 80-[address] [facility] Comment on above: Performed By: #### C GÓMEZ, PINR, 86018-2, BMP #### [facility] ([id number]) [address], [address] [place] [address] Monocytes (Bld) [#/Vol] 0.6 10*3/uL Normal 0-0.[address] [facility] Comment on above: Performed By: #### Cody MAGAÑA, PINR, 71535-2, BMP #### [facility] ([id number]) [address], [address] [place] [address] Monocytes/100 WBC (Bld) 6.7 % Normal [facility] Comment on above: Performed By: #### Cody MAGAÑA, PINR, 42066-9, BMP #### [facility] ([id number]) [address], [address] [place] [address] Neutrophils (Bld) [#/Vol] 6.2 10*3/uL Normal 1.5-6.[address] [facility] Comment on above: Performed By: #### C GÓMEZ, PINR, 87977-8, BMP #### [facility] ([id number]) [address], [address] [place] [address] OVALOCYTE 1+ Abnormal NONE [facility] Comment on above: Performed By: #### C BCA, PINR, 98008-0, BMP #### [facility] ([id number]) [address], [address] [place] [address] Platelet mean volume (Bld) [Entitic vol] 9.0 fL Normal 7-12 [facility] Comment on above: Performed By: #### C GÓMEZ, PINR, 37313-8, BMP #### [facility] ([id number]) [address], [address] [place] [address] Platelets (Bld) [#/Vol] 364 10*3/uL Normal 150-[address] [facility] Comment on above: Performed By: #### C GÓMEZ, PINR, 06658-5, BMP #### [facility] ([id number]) [address], [address] [place] [address] POLYCHROMASIA 1+ Abnormal NONE [facility] Comment on above: Performed By: #### Cody BCA, PINR, 01613-1, BMP #### [facility] ([id number]) [address], [address] [place] [address] RBC COUNT 4.95 X10E12/L Normal 3.80-5.20 [facility] Comment on above: Performed By: #### C GÓMEZ, PINR, 93916-2, BMP #### [facility] ([id number]) [address], [address] [place] [address] SEG NEUTROPHIL 64.6 % Normal [facility] Comment on above: Performed By: #### C BCA, PINR, 75357-1, BMP #### [facility] ([id number]) [address], [address] [place] [address] WBC (Bld) [#/Vol] 9.4 10*3/uL Normal 4.0-11.0 [facility] Comment on above: Performed By: #### C GÓMEZ, PINR, 56717-7, BMP #### [facility] ([id number]) [address], [address] [place] [address] CBC auto differentialon 03-0 Acanthocytes LM Ql (Bld) 1+ Abnormal NONE^NONE [facility] Band form neutrophils/100 WBC (Bld) 1 % [facility] Basophils (Bld) [#/Vol] 0.1 10*3/uL [facility] Basophils/100 WBC (Bld) 1 % [facility] Erythrocyte distribution width (RBC) [Ratio] 16.6 % High 11.5 - 15.0 % [facility] Hematocrit (Bld) [Volume fraction] 30.2 % Low 35 - 47 % [facility] Hemoglobin (Bld) [Mass/Vol] 9.7 g/dL Low 11.7 - 15.5 g/dL [facility] Interpretation and review of laboratory results Abnormal [facility] Lymphocytes (Bld) [#/Vol] 2.5 10*3/uL [facility] Lymphocytes/100 WBC (Bld) 26.7 % [facility] MCH (RBC) [Entitic mass] 19.7 pg Low 27 - 34 pg [facility] MCHC (RBC) [Mass/Vol] 32.2 g/dL 32 - 36 g/dL [facility] MCV (RBC) [Entitic vol] 61 fL Low 80 - 100 fL [facility] Monocytes (Bld) [#/Vol] 0.6 10*3/uL [facility] Monocytes/100 WBC (Bld) 6.7 % [facility] Neutrophils (Bld) [#/Vol] 6.2 10*3/uL [facility] Ovalocytes LM Ql (Bld) 1+ Abnormal NONE^NONE [facility] Platelet mean volume (Bld) [Entitic vol] 9 fL 7 - 12 fL [facility] Platelets (Bld) [#/Vol] 364 10*3/uL [facility] Polychromasia LM Ql (Bld) 1+ Abnormal NONE^NONE [facility] RBC (Bld) [#/Vol] 4.95 10*6/uL [facility] Segmented neutrophils/100 WBC (Bld) 64.6 % [facility] WBC corrected for nucl RBC Auto (Bld) [#/Vol] 9.4 [facility] ECG 12 leadon 12-12-2024 TRACEMASTERVUE [facility] NUC STRESS LEXISCANon 2024 NUC STRESS LEXISCAN NUC STRESS LEXISCAN Examination: SPECT Myocardial with Wall Motion and Ejection Fraction Analysis with Lexiscan. History:Preop. Abnormal EKG. Comparison: None Myocardial perfusion is evaluated at rest using 10mCi of Tc99m sestamibi for the resting study. Myocardial perfusion was subsequently enhanced using intravenous Lexiscan, monitored by cardiology. At peak effect, 30.8mCi Tc99m sestamibi for the stress study. Routine SPECT imaging was utilized for both the resting and Lexiscan enhanced scans. Findings: Review of the reconstructed tomographic images demonstrate a normal distribution of activity throughout the myocardium on both the Lexiscan enhanced exam as well as the resting study. There is no evidence of myocardial ischemia. Left Ventricle: Wall motion is assessed in three projections and is normal. The global ejection fraction of the left ventricle is calculated to be 70% and is within the normal range for our laboratory. IMPRESSION: 1. Normal Lexiscan enhanced sestamibi myocardial perfusion exam, without evidence of myocardial ischemia. 2. Normal left ventricle wall motion and ejection fraction. 83 Finalized by Morales Barkley MD on 12/12/2024 10:[address] [facility] No Panel Informationon 12-12 [facility] PROTIME AND INRon 12-12-2024 INR Coag (PPP) [Relative time] 1.0 {INR} Normal 0.9-1.[address] [facility] Comment on above: Performed By: #### C GÓMEZ, PINR, 13971-9, BMP #### [facility] ([id number]) [address], [address] [place] [address] PT Coag (PPP) [Time] 11.2 s Normal 9.8-13.2 [facility] Comment on above: Performed By: #### C BCA, PINR, 87405-6, BMP #### [facility] ([id number]) [address], [address] [place] [address] Protime-INRon 12-12-2024 INR Coag (PPP) [Relative time] 1 {INR} [facility] PT Coag (PPP) [Time] 11.2 s [facility] URINALYSISon 12-12-2024 Bilirubin Ql (U) Negative Normal NEG [facility] Comment on above: Performed By: #### U A #### [facility] ([id number]) [address], [address] [place] [address] Color (U) YELLOW Normal YELLOW [facility] Comment on above: Performed By: #### U A #### [facility] ([id number]) [address], [address] [place] [address] BLOOD/HGB Negative Normal NEG [facility] Comment on above: Performed By: #### U A #### [facility] ([id number]) [address], [address] [place] [address] Glucose Ql (U) Negative Normal NEG [facility] Comment on above: Performed By: #### U A #### [facility] ([id number]) [address], [address] [place] [address] Ketones Ql (U) Negative Normal NEG [facility] Comment on above: Performed By: #### U A #### [facility] ([id number]) [address], [address] [place] [address] Leukocyte esterase Test strip Ql (U) Small Abnormal NEG [facility] Comment on above: Performed By: #### U A #### [facility] ([id number]) [address] [place] [address] MUCOUS PRESENT Abnormal NONE [facility] Comment on above: Performed By: #### U A #### [facility] ([id number]) [address], [address] [place] [address] Nitrite Ql (U) Negative Normal NEG [facility] Comment on above: Performed By: #### U A #### [facility] ([id number]) [address], [address] [place] [address] pH (U) 6.0 [pH] Normal 5.0-8.5 [facility] Comment on above: Performed By: #### U A #### [facility] ([id number]) [address], [address] [place] [address] Protein Ql (U) Negative Normal NEG [facility] Comment on above: Performed By: #### U A #### [facility] ([id number]) [address], [address] [place] [address] R.B.CELLS 1 /hpf Normal 0-5 [facility] Comment on above: Performed By: #### U A #### [facility] ([id number]) [address], [address] [place] [address] Specific gravity (U) [Rel density] 1.008 Normal 1.003-1.[address] [facility] Comment on above: Performed By: #### U A #### [facility] ([id number]) [address], [address] [place] [address] SQUAMOUS EPITHELIUM 5 /hpf Normal 0-5 [facility] Comment on above: Performed By: #### U A #### [facility] ([id number]) [address], [address] [place] [address] TURBIDITY CLEAR Normal CLEAR [facility] Comment on above: Performed By: #### U A #### [facility] ([id number]) [address], [address] [place] [address] Urobilinogen (U) [Mass/Vol] mg/dL Normal <1.[address] [facility] Comment on above: Performed By: #### U A #### [facility] ([id number]) [address], [address] [place] [address] W.B.CELLS 7 /hpf High 0-5 [facility] Comment on above: Performed By: #### U A #### [facility] ([id number]) [address], [address] [address] Urinalysison 12-12-2024 Epithelial cells Auto (Urine sed) [#/Area] 5 [facility] Glucose (U) [Mass/Vol] Negative Negative^Nega tive mg/dL [facility] Hemoglobin Auto test strip Ql (U) Negative Negative^Nega tive [facility] Interpretation and review of laboratory results Abnormal [facility] Ketones (U) [Mass/Vol] Negative Negative^Nega tive mg/dL [facility] Leukocyte esterase Auto test strip Ql (U) Small Abnormal Negative^Nega tive [facility] Mucus Ql (Urine sed) PRESENT Abnormal NONE^NONE [facility] Nitrite Auto test strip Ql (U) Negative Negative^Nega tive [facility] pH (U) 6 [pH] 5.0 - 8.5 [facility] Protein (U) [Mass/Vol] Negative Negative^Nega tive mg/dL [facility] RBC Auto (Urine sed) [#/Area] 1 [facility] Specific gravity Refractometry automated (U) [Rel density] 1.008 1.003 - 1.035 [facility] Turbidity Ql (U) CLEAR CLEAR^CLEAR [facility] Urobilinogen Qn (U) NINF [facility] WBC Auto (Urine sed) [#/Area] 7 High [facility] aPTT Coag (PPP) [Time]on aPTT Coag (Bld) [Time] 29 s Normal 26-[address] [facility] Comment on above: Performed By: #### C BCA, PINR, 20140-2, BMP #### [facility] ([id number]) [address] [facility] [address] [place] [address] INSULINon 07-16-2022 Insulin 14.3 uIU/mL Normal 2.6-24.9 [facility] Comment on above: Performed By: #### I NSULIN #### [facility] [address] [place] [address] Dr. Lemuel Serrato CBC AUTO DIFFon 07-15-2022 BASO # 0.0 103/ul Normal 0.0-0.1 [facility] Comment on above: Performed By: #### C BC #### [facility] [address] [place] [address] Dr. Lemuel Serrato Basophils/100 WBC (Bld) 0.4 % Normal 0.2-2.0 [facility] Comment on above: Performed By: #### C BC #### [facility] [address] [place] [address] Dr. Lemuel Serrato EO # 0.2 103/ul Normal 0.0-0.7 [facility] Comment on above: Performed By: #### C BC #### [facility] [address] [place] [address] Dr. Lemuel Serrato Eosinophils/100 WBC (Bld) 2.7 % Normal 0.9-7.0 [facility] Comment on above: Performed By: #### C BC #### [facility] [address] [place] [address] Dr. Lemuel Serrato Erythrocyte distribution width (RBC) [Ratio] 15.9 % Critically high 11.0-15.0 [facility] Comment on above: Performed By: #### C BC #### [facility] [address] [place] [address] Dr. Lemuel Serrato Hematocrit (Bld) [Volume fraction] 30.5 % Critically low 36.0-48.0 [facility] Comment on above: Performed By: #### C BC #### [facility] [address] [place] [address] Dr. Lemuel Serrato Hemoglobin (Bld) [Mass/Vol] 9.0 g/dL Critically low 12.0-16.0 [facility] Comment on above: Performed By: #### C BC #### [facility] [address] [place] [address] Dr. Lemuel Serrato IG # 0.03 10e3/ul Normal 0.00-0.03 [facility] Comment on above: Performed By: #### C BC #### [facility] [address] [place] [address] Dr. Lemuel Serrato IG % 0.4 % Normal 0.0-0.5 [facility] Comment on above: Performed By: #### C BC #### [facility] [address] [place] [address] Dr. Lemuel Serrato LYMPH # 3.1 103/ul Normal 1.2-3.8 [facility] Comment on above: Performed By: #### C BC #### [facility] [address] [place] [address] Dr. Lemuel Serrato Lymphocytes/100 WBC (Bld) 41.8 % Normal 20.5-60.0 [facility] Comment on above: Performed By: #### C BC #### [facility] [address] [place] [address] Dr. Lemuel Serrato MANUAL DIFF REQ NO Normal [facility] Comment on above: Performed By: #### C BC #### [facility] [address] [place] [address] Dr. Lemuel Serrato MCH (RBC) [Entitic mass] 18.9 pg Critically low 26.7-34.0 [facility] Comment on above: Performed By: #### C BC #### [facility] [address] [place] [address] Dr. Lemuel Serrato MCHC (RBC) [Mass/Vol] 29.5 g/dL Critically low 29.9-35.2 [facility] Comment on above: Performed By: #### C BC #### [facility] [address] [place] [address] Dr. Lemuel Serrato MCV (RBC) [Entitic vol] 64.2 fL Critically low 81.0-99.0 [facility] Comment on above: Performed By: #### C BC #### [facility] [address] [place] [address] Dr. Lemuel Serrato MONO # 0.7 103/ul Normal 0.3-0.8 [facility] Comment on above: Performed By: #### C BC #### [facility] [address] [place] [address] Dr. Lemuel Serrato Monocytes/100 WBC (Bld) 8.8 % Normal 1.7-12.0 [facility] Comment on above: Performed By: #### C BC #### [facility] [address] [place] [address] Dr. Lemuel Serrato NEUT # 3.4 103/ul Normal 1.4-6.5 [facility] Comment on above: Performed By: #### C BC #### [facility] [address] [place] [address] Dr. Lemuel Serrato Neutrophils/100 WBC (Bld) 45.9 % Normal 43.0-75.0 [facility] Comment on above: Performed By: #### C BC #### [facility] [address] [place] [address] Dr. Lemuel Serrato Platelet mean volume (Bld) [Entitic vol] 9.8 fL Normal 9.5-13.5 [facility] Comment on above: Performed By: #### C BC #### [facility] [address] [place] [address] Dr. Lemuel Serrato PLT 263 103/ul Normal 150-450 [facility] Comment on above: Performed By: #### C BC #### [facility] [address] [place] [address] Dr. Lemuel Serrato RBC 4.75 106/ul Normal 4.20-5.40 [facility] Comment on above: Result Comment: SLIG HT MICROCYTOSIS 1+ POIKILOCYTOSIS 1+ OVALOCYTE SLIGHT ACANTHOCYTE Performed By: #### C BC #### [facility] [address] [place] [address] Dr. Lemuel Serrato WBC 7.4 103/ul Normal 4.0-11.0 [facility] Comment on above: Performed By: #### C BC #### [facility] [address] [place] [address] Dr. Lemuel Serrato FREE THYROXINE INDEX T7on FTI 2.15 Normal 1.30-4.50 [facility] Comment on above: Performed By: #### T 7, LIPID, TSH, CMP #### [facility] [address] [place] [address] Dr. Lemuel Serrato T3U 33.0 % Normal 30.0-39.0 [facility] Comment on above: Performed By: #### T 7, LIPID, TSH, CMP #### [facility] [address] [place] [address] Dr. Lemuel Serrato T4 [Mass/Vol] 6.50 ug/dL Normal 4.80-13.90 [facility] Comment on above: Performed By: #### T 7, LIPID, TSH, CMP #### [facility] [address] [place] [address] Dr. Lemuel Serrato GLYCOHEMOGLOBIN A1Con 2021 ADA RECOMMENDATION SEE BELOW Normal [facility] Comment on above: Result Comment: ADA RECOMMENDED LIMIT 4.0 - 6.0 ADA THERAPEUTIC TARGET < 7.0 ACTION SUGGESTED > 7.0 Performed By: #### A 1C #### [facility] [address] [place] [address] Dr. Lemuel Serrato Glucose [Mass/Vol] 137 mg/dL Normal [facility] Comment on above: Performed By: #### A 1C #### [facility] [address] [place] [address] Dr. Lemuel Serrato HbA1c (Bld) [Mass fraction] 6.4 % Critically high 4.5-6.2 [facility] Comment on above: Performed By: #### A 1C #### [facility] [address] [address] [address] Lemuel Serrato IRONon 07-15-2022 Iron [Mass/Vol] 70.0 ug/dL Normal 50.0-170.0 [facility] Comment on above: Performed By: #### I MARAL #### [facility] [address] [address] [address] Lemuel Serrato LIPID PROFILEon 07-15-2022 CHOL-HDL RATIO NORM SEE BELOW Normal [facility] Comment on above: Result Comment: 3.3 - 4.4 LOW RISK 4.4 - 7.1 AVERAGE RISK 7.1 - 11.0 MODERATE RISK >11.0 HIGH RISK Performed By: #### T 7, LIPID, TSH, CMP #### [facility] [address] [address] [address] Lemuel Serrato Cholesterol [Mass/Vol] 152 mg/dL Normal <=200 [facility] Comment on above: Performed By: #### T 7, LIPID, TSH, CMP #### [facility] [address] [address] [address] Lemuel Serrato Cholesterol in HDL [Mass/Vol] 32 mg/dL Critically low 40-60 [facility] Comment on above: Performed By: #### T 7, LIPID, TSH, CMP #### [facility] [address] [address] [address] Lemuel Serrato Cholesterol in LDL [Mass/Vol] 96.8 mg/dL Normal [facility] Comment on above: Performed By: #### T 7, LIPID, TSH, CMP #### [facility] [address] [address] [address] Lemuel Serrato Cholesterol.total/Ch olesterol in HDL [Mass ratio] 4.8 {ratio} Normal [facility] Comment on above: Performed By: #### T 7, LIPID, TSH, CMP #### [facility] [address] [address] [address] Lemuel Serrato HDL NORMAL > or = 60 mg/dl - LOW CARDIOVASCULAR RISK <40 mg/dl - HIGH CARDIOVASCULAR RISK Normal [facility] Comment on above: Performed By: #### T 7, LIPID, TSH, CMP #### [facility] [address] [address] [address] Lemuel Serrato LDL CALC NORMAL SEE BELOW Normal [facility] Comment on above: Result Comment: <100 mg/dl OPTIMAL 100 - 129 mg/dl NEAR OR ABOVE OPTIMAL 130 - 159 mg/dl BORDERLINE HIGH 160 - 189 mg/dl HIGH >190 mg/dl VERY HIGH Performed By: #### T 7, LIPID, TSH, CMP #### [facility] [address] [address] [address] Lemuel Serrato Triglyceride [Mass/Vol] 116 mg/dL Normal <=150 [facility] Comment on above: Performed By: #### T 7, LIPID, TSH, CMP #### [facility] [address] [address] [address] Lemuel Serrato VLDL CALC 23.2 mg/dL Normal [facility] Comment on above: Performed By: #### T 7, LIPID, TSH, CMP #### [facility] [address] [address] [address] Lemuel Serrato PROF 14(COMP METB)on 022 Albumin [Mass/Vol] 3.5 g/dL Normal 3.4-5.0 [facility] Comment on above: Performed By: #### T 7, LIPID, TSH, CMP #### [facility] [address] [address] [address] Lemuel Serrato Albumin/Globulin [Mass ratio] 0.9 {ratio} Normal [facility] Comment on above: Performed By: #### T 7, LIPID, TSH, CMP #### [facility] [address] [address] [address] Lemuel Serrato ALP [Catalytic activity/Vol] 91 U/L Normal 46-116 [facility] Comment on above: Performed By: #### T 7, LIPID, TSH, CMP #### [facility] [address] [address] [address] Lemuel Serrato ALT [Catalytic activity/Vol] 21 U/L Normal 14-59 [facility] Comment on above: Performed By: #### T 7, LIPID, TSH, CMP #### [facility] [address] [address] [address] Lemuel Serrato Anion gap [Moles/Vol] 10.1 mmol/L Normal [facility] Comment on above: Performed By: #### T 7, LIPID, TSH, CMP #### [facility] [address] [address] [address] Lemuel Serrato AST [Catalytic activity/Vol] 10 U/L Critically low 15-37 [facility] Comment on above: Performed By: #### T 7, LIPID, TSH, CMP #### [facility] [address] [place] [address] Dr. Lemuel Serrato Bilirubin [Mass/Vol] 0.3 mg/dL Normal 0.2-1.0 [facility] Comment on above: Performed By: #### T 7, LIPID, TSH, CMP #### [facility] [address] [place] [address] Dr. Lemuel Serrato Calcium [Mass/Vol] 8.6 mg/dL Normal 8.5-10.1 [facility] Comment on above: Performed By: #### T 7, LIPID, TSH, CMP #### [facility] [address] [place] [address] Dr. Lemuel Serrato Chloride [Moles/Vol] 107 mmol/L Normal 98-107 [facility] Comment on above: Performed By: #### T 7, LIPID, TSH, CMP #### [facility] [address] [address] [address] Lemuel Serrato CO2 [Moles/Vol] 25.8 mmol/L Normal 21.0-32.0 [facility] Comment on above: Performed By: #### T 7, LIPID, TSH, CMP #### [facility] [address] [place] [address] Dr. Lemuel Serrato Creatinine [Mass/Vol] 1.20 mg/dL Critically high 0.55-1.02 [facility] Comment on above: Performed By: #### T 7, LIPID, TSH, CMP #### [facility] [address] [address] [address] Lemuel Serrato EGFR-AF ICELANDIC 55 mL/min/1.73m2 Critically low >=60 [facility] Comment on above: Performed By: #### T 7, LIPID, TSH, CMP #### [facility] [address] [address] [address] Lemuel Serrato EGFR-NON AF ICELANDIC 45 mL/min/1.73m2 Critically low >=60 [facility] Comment on above: Performed By: #### T 7, LIPID, TSH, CMP #### [facility] [address] [address] [address] Lemuel Serrato Globulin (S) [Mass/Vol] 3.9 g/dL Normal [facility] Comment on above: Performed By: #### T 7, LIPID, TSH, CMP #### [facility] [address] [place] [address] Dr. Lemuel Serrato Glucose [Mass/Vol] 96 mg/dL Normal 74-[address] [facility] Comment on above: Performed By: #### T 7, LIPID, TSH, CMP #### [facility] [address] [address] [address] Lemuel Serrato Potassium [Moles/Vol] 3.9 mmol/L Normal 3.5-5.1 [facility] Comment on above: Performed By: #### T 7, LIPID, TSH, CMP #### [facility] [address] [place] [address] Dr. Lemuel Serrato Protein [Mass/Vol] 7.4 g/dL Normal 6.4-8.[address] [facility] Comment on above: Performed By: #### T 7, LIPID, TSH, CMP #### [facility] [address] [address] [address] Lemuel Serrato Sodium [Moles/Vol] 139 mmol/L Normal 136-[address] [facility] Comment on above: Performed By: #### T 7, LIPID, TSH, CMP #### [facility] [address] [place] [address] Dr. Lemuel Serrato Urea nitrogen [Mass/Vol] 23.0 mg/dL Critically high 7.0-18.0 [facility] Comment on above: Performed By: #### T 7, LIPID, TSH, CMP #### [facility] [address] [address] [address] Lemuel Serrato Urea nitrogen/Creatinine [Mass ratio] 19.2 mg/mg Normal [facility] Comment on above: Performed By: #### T 7, LIPID, TSH, CMP #### [facility] [id number] Lemuel Serrato TSHon 07-15-2022 TSH 2.220 uIU/mL Normal 0.358-3.740 [facility] Comment on above: Performed By: #### T 7, LIPID, TSH, CMP #### [facility] [address] [address] [address] Lemuel Serrato Vital Signs Date Time Vital Sign Value Performing Clinician Facility 12-19-2024 11:17-0400 Body temperature 97.7 [degF] Maldonado Prince MD Work Phone: [facility] 12-19-2024 11:17-0400 Diastolic blood pressure 57 mm[Hg] Maldonado Prince MD Work Phone: [facility] 12-19-2024 11:17-0400 Heart rate 83 /min Maldonado Prince MD Work Phone: [facility] 12-19-2024 11:17-0400 Respiratory rate 14 /min Maldonado Prince MD Work Phone: [facility] 12-19-2024 11:17-0400 SaO2% (BldA) [Mass fraction] 94 % Maldonado Prince MD Work Phone: [facility] 12-19-2024 11:17-0400 Systolic blood pressure 103 mm[Hg] Maldonado Prince MD Work Phone: [facility] 12-17-2024 20:25-0400 Body height 165.1 cm Maldonado Prince MD Work Phone: [facility] 12-17-2024 20:25-0400 Body mass index (BMI) [Ratio] 27.04 kg/m2 Maldonado Prince MD Work Phone: [facility] 12-17-2024 20:25-0400 Body weight 73.7 kg Maldonado Prince MD Work Phone: [facility] 12-12-2024 12:35-0500 Body height 165.1 cm [facility] 12-12-2024 12:35-0500 Body mass index (BMI) [Ratio] 27.29 kg/m2 [facility] 12-12-2024 12:35-0500 Body temperature 97.2 [degF] [facility] 12-12-2024 12:35-0500 Body weight 74.39 kg [facility] 1 [facility] 12-12-2024 12:35-0500 Diastolic blood pressure 75 mm[Hg] [facility] 1 [facility] 12-12-2024 12:35-0500 Heart rate 78 /min [facility] 1 [facility] 12-12-2024 12:35-0500 Respiratory rate 20 /min [facility] 12-12-2024 12:35-0500 SaO2% (BldA) [Mass fraction] 97 % [facility] 1 [facility] 12-12-2024 12:35-0500 Systolic blood pressure 181 mm[Hg] [facility] 1 [facility] 11-28-2024 10:36-0500 Body height 165.1 cm Maldonado Prince MD Work Phone: [facility] 11-28-2024 10:36-0500 Body mass index (BMI) [Ratio] 27.46 kg/m2 Maldonado Prince MD Work Phone: [facility] 11-28-2024 10:36-0500 Body temperature 97.39 [degF] Maldonado Prince MD Work Phone: [facility] 11-28-2024 10:36-0500 Body weight 74.84 kg Maldonado Prince MD Work Phone: [facility] 11-28-2024 10:36-0500 Diastolic blood pressure 88 mm[Hg] Maldonado Prince MD Work Phone: [facility] 11-28-2024 10:36-0500 Heart rate 73 /min Maldonado Prince MD Work Phone: [facility] 11-28-2024 10:36-0500 Respiratory rate 16 /min Maldonado Prince MD Work Phone: [facility] 11-28-2024 10:36-0500 SaO2% (BldA) [Mass fraction] 98 % Maldonado Prince MD Work Phone: [facility] 11-28-2024 10:36-0500 Systolic blood pressure 168 mm[Hg] Maldonado Prince MD Work Phone: [facility] 07-08-2024 13:21-0400 Body height 165.1 cm [facility] 07-08-2024 13:21-0400 Body mass index (BMI) [Ratio] 26.1 kg/m2 [facility] 07-08-2024 13:21-0400 Body temperature 97.8 [degF] [facility] 07-08-2024 13:21-0400 Body weight 71.21 kg [facility] 07-08-2024 13:21-0400 Diastolic blood pressure 86 mm[Hg] [facility] 07-08-2024 13:21-0400 Heart rate 98 /min [facility] 07-08-2024 13:21-0400 Respiratory rate 18 /min [facility] 07-08-2024 13:21-0400 SaO2% (BldA) [Mass fraction] 97 % [facility] 07-08-2024 13:21-0400 Systolic blood pressure 163 mm[Hg] [facility] 09-07-2021 15:00-0500 Body height 165.1 cm Evonne Seo Other [employer] Other 09-07-2021 15:00-0500 Body mass index (BMI) [Ratio] 26.62 kg/m2 Evonne Seo Other [employer] Other 09-07-2021 15:00-0500 Body temperature 100.6 [degF] Evonne Marinty Other [employer] Other 09-07-2021 15:00-0500 Body weight 72.58 kg Evonne Ginty Other [employer] Other 09-07-2021 15:00-0500 SaO2% (BldA) [Mass fraction] 96 % Evonne Ginty Other [employer] Other Encounters Encounter Date Encounter Type Care Provider Facility Start: 12-17-2024 ambulatory [facility] Ambulatory [facility] Start: 12-17-2024 End: 12-19-2024 Evaluation and management of inpatient [facility] Start: 12-12-2024 End: 12-12-2024 Patient encounter procedure [facility] Comment on above: Pre-op testing (Prim brissa Dx); 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); Claudication ([facility]) Start: 12-12-2024 End: 12-12-2024 Patient encounter status [facility] Start: 12-12-2024 End: 12-12-2024 ambulatory [facility] Start: 12-12-2024 ambulatory [facility] Start: 12-12-2024 End: 12-12-2024 ambulatory [facility] Start: 12-12-2024 Encounter for other preprocedural examination [facility] Start: 12-02-2024 End: 12-02-2024 ambulatory [facility] Start: 12-02-2024 End: 12-02-2024 Encounter for other [facility]procedural [facility] Start: 11-28-2024 End: 11-28-2024 Office outpatient new 45 minutes Maldonado Prince MD Work Phone: [facility] Comment on above: 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 ([facility]) (Primary Dx); Claudication ([facility]) Start: 11-28-2024 End: 11-28-2024 ambulatory [facility] Start: 11-18-2024 End: 11-18-2024 ambulatory Garrison Duenas MD Facility:[facility] Start: 11-04-2024 End: 11-04-2024 ambulatory Garrison Duenas MD Facility:[facility] Start: 10-21-2024 End: 10-21-2024 ambulatory Garrison Duenas MD Facility:[facility] Start: 07-08-2024 End: 07-08-2024 ambulatory [facility] Work Phone: Start: 07-08-2024 End: 07-08-2024 Patient encounter procedure [facility] Work Phone: Start: 11-04-2023 Refill Indu Cash MD Work Phone: [facility] Comment on above: PVD (peripheral vasc ular disease) ([facility]); Claudication ([facility]); Bilateral carotid bruits Start: 07-18-2022 Encounter for genera l adult medical examination without abnormal findings DR SKYE BOWMAN [facility] Start: 07-15-2022 End: 07-16-[address] SKYE BOWMAN Facility:[facility] Start: 07-15-2022 End: 07-16-2022 Encounter for general adult medical examination without abnormal findings DR SKYE BOWMAN Facility:[facility] Start: 06-27-2022 End: 06-28-2022 ambulatory TED CASTREJON Facility:[facility] Start: 09-07-2021 End: 09-07-2021 ambulatory Evonne Guerracaseprnyla Other [employer] Other Start: 09-07-2021 Office outpatient vi sit 15 minutes Evonne Guerracaspernyla [facility] Start: 11-23-2017 End: 11-24-2017 Ambulatory DEFAULT PHYSICIAN Facility:[facility] Procedures Date Procedure Procedure Detail Performing Clinician Start: 12-19-2024 Comprehensive metabolic panel Lion Morro Jignat DO Work Phone: Start: 12-18-2024 Blood count hematocrit Channing Frazier CERTIFIED WELLNESS PROGRAM COORDINATOR-HVAC INSTRUCTOR Work Phone: Start: 12-18-2024 REPEATED ABORH Channing gaspar CERTIFIED WELLNESS PROGRAM COORDINATOR-HVAC INSTRUCTOR Work Phone: Start: 12-18-2024 Comprehensive metabolic panel Lion Hooker Pawrachelrat DO Work Phone: Start: 12-17-2024 Basic metabolic pane l calcium total Lion Morro Sung DO Work Phone: Start: 12-17-2024 Fluoroscopy up to 1 hour physician/qhp time Maldonado Prince MD Work Phone: Start: 12-17-2024 End: 12-17-2024 Revascularization iliac artery angiop 1st vsl Maldonado Prince MD Work Phone: Start: 12-13-2024 End: 12-13-2024 Antibody screen [facility] 1 Comment on above: Non-RBC reactive, no red cell antibodies detected. Start: 12-12-2024 Basic metabolic pane l calcium total Maldonado Prince MD Work Phone: Start: 12-12-2024 Urnls dip stick/tabl et rgnt auto w/o microscopy Maldonado Prince MD Work Phone: Start: 12-12-2024 Ecg routine ecg w/le ast 12 lds trcg only w/o i&r Lloyd Song MD Work Phone: Start: 12-12-2024 ANTIBODY ID Maldonado Prince MD Work Phone: Start: 12-12-2024 Blood typing serologic abo Maldonado Prince MD Work Phone: Start: 12-12-2024 COMPLETE ANTIBODY SCREEN Maldonado Prince MD Work Phone: Start: 12-12-2024 REPEATED ABORH Maldonado Prince MD Work Phone: Plan of Treatment Date Care Activity Detail Author Start: 12-12-2025 Adult BMI Screening Adult BMI Screen ing [facility] Start: 12-12-2025 Tobacco Screening Tobacco Screening [facility] Start: 11-28-2025 Adult BMI Screening Adult BMI Screen ing [facility] Start: 11-28-2025 Tobacco Screening Tobacco Screening [facility] Start: 01-02-2025 End: 01-02-2025 Patient encounter procedure 01/02/2025 10:20 AM EDT Office [facility] [address] [place] [phone] Maldonado Prince MD [address], [address] [address] [facility] Start: 12-17-2024 End: 12-17-2024 Admission to same day surgery center 12/17/2024 10:30 AM EDT - 12/17/2024 1:00 PM EDT Surgery [address] [phone] Maldonado Prince MD [address], [address] [address] ANGIOPLASTY ILIAC [36265 (CPT )] [facility] Comment on above: ANGIOPLASTY ILIAC [3 8720 (CPT )] Start: 12-17-2024 End: 12-17-2024 Revascularization iliac artery angiop 1st vsl [facility] Start: 12-17-2024 Subsequent hospital visit by physician 12/17/2024 10:30 AM EDT Hospital Encounter [address] [place] [id number] Maldonado Prince MD [address], [address] [place] [address] [facility] Start: 12-13-2024 End: 12-13-2024 Patient encounter procedure 12/13/2024 9:00 AM EST Office Visit [facility] [address] [place] [address] Kaushal Alcaraz MD [address] [place] [address] [facility] Start: 06-09-2024 Influenza vaccination Influenza Vacc ine [facility] Start: 07-22-2023 Tobacco Screening Tobacco Screening [facility] Start: 06-09-2023 Influenza vaccination Influenza Vacc ine [facility] Start: 2022 Fall Risk Screening Fall Risk Screen ing [facility] Start: 12-29-2021 DTaP,Tdap and Td Vac cines (2 - Td or Tdap) DTaP,Tdap and Td Vaccines (2 - Td or Tdap) [facility] Start: 2007 Administration of va ricella zoster vaccine Zoster (Shingles) Vaccine (1 of 2) [facility] Start: 1975 Adult BMI Follow Up Plan Adult BMI Follow Up Plan [facility] Start: 1975 Adult BMI Screening Adult BMI Screen ing [facility] Start: 1969 Depression Screening Depression Scre ening [facility] Start: 1957 Tobacco Counseling Tobacco Counselin g [facility] Comprehensive metabo lic 2000 panel - Serum or Plasma Comprehensive metabolic panel Lab Routine Lab max of 3 days, Daily, for lab use only until discontinued starting 12/18/2024, 2 completed [facility] Comment on above: Lab max of 3 days, D aily, for lab use only until discontinued starting 12/18/2024, 2 completed Magnesium [Mass/volu me] in Serum or Plasma Magnesium Lab Routine Lab max of 3 days, Daily, for lab use only until discontinued starting 12/18/2024, 2 completed [facility] Comment on above: Lab max of 3 days, D aily, for lab use only until discontinued starting 12/18/2024, 2 completed Oxygen Therapy - [place] ntain SpO2: 90%; *ASSESSMENT RN Guidelines for O2: Yes; Document: \phsi.[email or web address]\epic\E PIC_Reference\Orders\Respir atory Care Guidelines\CPG Oxygen 2022.pdf Oxygen Therapy - Maintain SpO2: 90%; *ASSESSMENT RN Guidelines for O2: Yes; Document: \[email or web address]\e pic\EPIC_Reference\Ord ers\Respiratory Care Guidelines\CPG Oxygen 2022.pdf Respiratory Care Routine As Needed until discontinued starting 12/17/2024 [facility] Work Phone: Comment on above: As Needed until disc ontinued starting 12/17/2024 Phosphate [Mass/volu me] in Serum or Plasma Phosphorus Lab Routine Lab max of 3 days, Daily, for lab use only until discontinued starting 12/18/2024, 2 completed [facility] Comment on above: Lab max of 3 days, D aily, for lab use only until discontinued starting 12/18/2024, 2 completed End: 12-18-2024 Type and screen(includes indirect adrian) Type and screen(includes indirect adrian) Blood Bank Routine Once for 1 Occurrences starting 12/18/2024 until 12/18/2024 [facility] Work Phone: Comment on above: Once for 1 Occurrenc es starting 12/18/2024 until 12/18/2024 Immunizations Immunization Date Immunization Notes Care Provider Mike de dios 12-30-2011 tetanus and diphther ia toxoids, adsorbed, preservative free, for adult use (5 Lf of tetanus toxoid and 2 Lf of diphtheria toxoid) Maldonado Prince MD Work Phone: [facility] Payers Date Payer Category Payer Medicare 2022 Medicare [id number] 1957 Unknown [id number] 2.16. [id number] 1957 Unknown [id number] 2.16.84 [id number] 1957 Unknown [id number] 2.16.84 [id number] 1957 Unknown [id number] 2.16. [id number] 1957 Unknown [id number] 2.16. [id number] 1957 Unknown [id number] 2.16. [id number] 1957 Unknown [id number] 2.16. [id number] 1957 Unknown [id number] 2.16. [id number] 1957 Unknown [id number] 2.16. [id number] 1957 Unknown [id number] 2.16. [id number] 1957 Unknown [id number] 2.16. [id number] 1957 Unknown [id number] 2.16. [id number] 1957 Unknown [id number] 2.16. [id number] 1957 Unknown [id number] 2.16. [id number] Unknown Social History Date Type Detail Facility Start: 07-22-2022 End: 12-18-2024 [facility] Start: 10-09-1966 [facility] Start: 1955 Sex Assigned At Female F [facility] Start: 10-09-1966 End: 12-12-2024 Tobacco smoking status NHIS Smokes tobacco daily [facility] Start: 10-09-1966 History of tobacco use Cigarette Smo ker [facility] Start: 07-22-2022 End: 12-17-2024 Tobacco use and exposure Smokeless tobacco non-user [facility] Start: 07-22-2022 End: 12-18-2024 Alcohol intake [facility] Start: 07-22-2022 End: 12-18-2024 History of Social function [facility]care [facility] Start: 1955 Sex Assigned At Not on file P [facility] Start: 05-14-2015 Sex Female (finding) [facility] Start: 12-17-2024 Tobacco smoking stat us NHIS Ex-smoker [facility] Has the [employer], [employer], or [employer] threatened to shut off services in your home in past 12Mo No [facility] How often to you hav e a drink containing alcohol? Never [facility] Medical Equipment Procedure Code Equipment Code Equipment Origin al Text Equipment Identifier Dates Graft Cv 60cm 7m m Thor [address] 2 Vlr [facility] - [id number] - [id number] Start: 12-17-2024 Comment on above: Description: FEMORAL -FEMORAL ARTERY Patch Vsc 8x.8cm [employer] Bvn Pricrd Tiss Strl Rpl [id number] - [id number] Start: 12-17-2024 Comment on above: Description: LEFT FE MORAL ARTERY Patch Vsc 8x.8cm [employer] Bvn Pricrd Tiss Strl Rpl [id number] - [id number] Start: 12-17-2024 Comment on above: Description: LEFT FE MORAL ARTERY Patch Vsc 8x.8cm [employer] Bvn Pricrd Tiss Strl Rpl [id number] - [id number] Start: 12-17-2024 Comment on above: Description: RIGHT F EMORAL ARTERY Goals Date Patient Goal Desired Activity /State Personal health goal Comment on above: Formatting of this n ote might be different from the original. Evaluation of progress towards goal: progressing towards discharge Functional Status Date Assessment Result Facility [facility] Clinical Notes 09-07-2021 to 12-19-2024 PT/OT/LADLE FILLER - Summer Gomez, PT - 12/19/2024 1:37 PM EDTPT/OT/LADLE FILLER - Summer Gomez, PT - 12/19/2024 1:37 PM EDTPlan of Care - Tavia Zuniga RN - 12/19/2024 11:29 AM EDTPatient Instructions Note Date & Type Note Facility 12-19-2024 Progress note Formatting of t his note is different from the original. Physical Therapy PT Type of Visit: Discharge from Therapy (Spoke with DEVAN Squires. Pt is being discharged home with no PT needs. Will sign off.) [facility] Work Phone: 12-19-2024 Miscellaneous Notes Physical Therapy PT Type of Visit: Discharge from Therapy (Spoke with DEVAN Squires. Pt is being discharged home with no PT needs. Will sign off.) Problem: Pain Goal: Patient goal is pain score less than 4, able to rest, and participant in treatment plan as appropriate Description: INTERVENTIONS: 1. Encourage patient or legal jewelry sales representative to report early pain and ask for pain medicine when needed 2. Assess pain using appropriate pain scale and include the scale used when documenting 3. Administer analgesics based on type and severity of pain and evaluate response within appropriate time frame 4. Implement non-pharmacological measures as appropriate and evaluate response 5. Consider cultural and social influences on pain and pain management 6. Notify LIP if interventions ineffective or patient reports new pain 7. Monitor vital signs including pulse ox, end-tidal CO2 based on pain intervention 8. Reassess pain per policy 9. Teach patient or legal jewelry sales representative interventions for comforting Outcome: Progressing Note: Evaluation of progress towards goal: pt says po pain meds are controling her pain Problem: Safety Goal: Patient will be injury free during hospitalization Description: INTERVENTIONS: 1. Assess patient's risk for falls and implement fall prevention plan of care per policy 2. Provide and maintain a safe environment 3. Proper use of double Identifiers 4. Medication administration using the 5 rights 5. Hand hygiene 6. Specimens are labeled at the bedside 7. Instruct patient/ patient jewelry sales representative about use of safety devices 8. Include patient/ patient jewelry sales representative in decisions related to safety Outcome: Progressing Note: Evaluation of progress towards goal: pt free from falls Problem: Infection Goal: Absence of infection during hospitalization Description: INTERVENTIONS 1. Assess and monitor for signs and symptoms of infection. 2. Monitor lab/diagnostic results. 3. Monitor all insertion sites i.e., indwelling lines, tubes and drains. 4. Monitor endotracheal (as able) and nasal secretions for changes in amount and color. 5. Administer medications as ordered. 6. Instruct and encourage patient and family to use good hand hygiene technique. 7. Identify and instruct patient/patient jewelry sales representative in use of appropriate isolation precautions for identified infection/symptoms. 8. Provide and discuss with patient/patient jewelry sales representative on educational MDRO sheet. 9. Encourage and monitor nutritional status daily and consult shopping investigator if indicated. 10. Implement neutropenic guidelines as needed. Outcome: Progressing Note: Evaluation of progress towards goal: pt afebrile-cont to monitor Problem: Knowledge Deficit Goal: Patient/patient jewelry sales representative demonstrates understanding of disease process, treatment plan, medications, and discharge instructions Description: INTERVENTIONS 1. Complete learning assessment and assess knowledge base 2. Provide teaching at level of understanding 3. Provide teaching via preferred learning method(s) Outcome: Progressing Note: Evaluation of progress towards goal: pt updated on poc Problem: Discharge Planning Goal: Discharge to post-acute care, other facility, or home with appropriate resources Description: Patient's goal is: INTERVENTIONS 1. Conduct assessment to determine patient/family and health care team treatment goals, and need for post-acute services based on payer coverage, community resources, and patient preferences, and barriers to discharge 2. Coordinate with Social work, Care Navigation, and Utilization Review to arrange appropriate level of services according to patient's needs based on patient preference and payer coverage in collaboration with the physician and health care team 3. Address psychosocial, clinical, and financial barriers to discharge as identified in assessment in conjunction with the patient/family and health care team 4. Consult appropriate ancillary services (i.e.. PT/OT/ST, etc) as needed 5. Communicate with and update the patient/family, physician, and health care team regarding progress on the discharge plan 6. Identify discharge learning needs (meds, wound care, etc). 7. Arrange for needed discharge transportation as appropriate Outcome: Progressing Note: Evaluation of progress towards goal: pt going home today DISCHARGE PLANNING NOTE Case discussed in daily transition rounds and chart reviewed by CN. Barriers to discharge include no medical barriers anticipate DC later today. Discharge Plan remains: Home self care. CN will continue to follow and is available should any further needs arise. - Lorenza Mcdonnell RN 12/19/24 10:04 AM Problem: Pain Goal: Patient goal is pain score less than 4, able to rest, and participant in treatment plan as appropriate Description: INTERVENTIONS: 1. Encourage patient or legal jewelry sales representative to report early pain and ask for pain medicine when needed 2. Assess pain using appropriate pain scale and include the scale used when documenting 3. Administer analgesics based on type and severity of pain and evaluate response within appropriate time frame 4. Implement non-pharmacological measures as appropriate and evaluate response 5. Consider cultural and social influences on pain and pain management 6. Notify LIP if interventions ineffective or patient reports new pain 7. Monitor vital signs including pulse ox, end-tidal CO2 based on pain intervention 8. Reassess pain per policy 9. Teach patient or legal jewelry sales representative interventions for comforting Outcome: Progressing Note: Evaluation of progress towards goal: Pt encouraged to monitor one's own pain. PRN pain meds available. Continue to monitor pt. Problem: Safety Goal: Patient will be injury free during hospitalization Description: INTERVENTIONS: 1. Assess patient's risk for falls and implement fall prevention plan of care per policy 2. Provide and maintain a safe environment 3. Proper use of double Identifiers 4. Medication administration using the 5 rights 5. Hand hygiene 6. Specimens are labeled at the bedside 7. Instruct patient/ patient jewelry sales representative about use of safety devices 8. Include patient/ patient jewelry sales representative in decisions related to safety Outcome: Progressing Note: Evaluation of progress towards goal: Safety measures initiated/maintained. Patient remains safe from injury/falls, continue to monitor. Problem: Infection Goal: Absence of infection during hospitalization Description: INTERVENTIONS 1. Assess and monitor for signs and symptoms of infection. 2. Monitor lab/diagnostic results. 3. Monitor all insertion sites i.e., indwelling lines, tubes and drains. 4. Monitor endotracheal (as able) and nasal secretions for changes in amount and color. 5. Administer medications as ordered. 6. Instruct and encourage patient and family to use good hand hygiene technique. 7. Identify and instruct patient/patient jewelry sales representative in use of appropriate isolation precautions for identified infection/symptoms. 8. Provide and discuss with patient/patient jewelry sales representative on educational MDRO sheet. 9. Encourage and monitor nutritional status daily and consult shopping investigator if indicated. 10. Implement neutropenic guidelines as needed. Outcome: Progressing Note: Evaluation of progress towards goal: Vitals sign wnl. No sign of infection noted. Problem: Knowledge Deficit Goal: Patient/patient jewelry sales representative demonstrates understanding of disease process, treatment plan, medications, and discharge instructions Description: INTERVENTIONS 1. Complete learning assessment and assess knowledge base 2. Provide teaching at level of understanding 3. Provide teaching via preferred learning method(s) Outcome: Progressing Note: Evaluation of progress towards goal: Patient/patient jewelry sales representative demonstrates understanding of disease process, treatment plan, medications, and discharge instructions. Problem: Discharge Planning Goal: Discharge to post-acute care, other facility, or home with appropriate resources Description: Patient's goal is: INTERVENTIONS 1. Conduct assessment to determine patient/family and health care team treatment goals, and need for post-acute services based on payer coverage, community resources, and patient preferences, and barriers to discharge 2. Coordinate with Social work, Care Navigation, and Utilization Review to arrange appropriate level of services according to patient's needs based on patient preference and payer coverage in collaboration with the physician and health care team 3. Address psychosocial, clinical, and financial barriers to discharge as identified in assessment in conjunction with the patient/family and health care team 4. Consult appropriate ancillary services (i.e.. PT/OT/ST, etc) as needed 5. Communicate with and update the patient/family, physician, and health care team regarding progress on the discharge plan 6. Identify discharge learning needs (meds, wound care, etc). 7. Arrange for needed discharge transportation as appropriate Outcome: Progressing Note: Evaluation of progress towards goal: Discharge to rehab facility, or home with appropriate resources. Problem: Moderate - High Risk Fall Score Description: Manuel Fall Score of =/> 25 or indicated by [facility] Assessment Goal: Patient should be free from fall Description: Interventions: 1. [place] to environment 2. Hourly rounds addressing the 4 P's (Pain, Positioning, Possessions, Potty) 3. Clear area of hazards (spills, clutter, electrical cords, unnecessary equipment) 4. Place equipment (bed & TV controls, call light, phone, urinal) within reach 5. Encourage patient to wear glasses and hearing aides as appropriate 6. Maintain bed in lowest position 7. Lock wheels on bed/wheelchair 8. Provide adequate lighting, including night light 9. Assess need for additional bedding, food/fluids, pain med's prior to sleep/routinely 10. Provide gripper slippers or personal non-skid footwear 11. Teach patient and patient jewelry sales representative to maintain environment for safety and engage in all aspects of fall prevention program 12. Remind patient to call for help before getting out of bed 13. Initiate bed/chair/exit alarms supportive devices as appropriate, (chair wedge, no-skid floor mat, raised edge mattress, hip protectors) 14. Locate patient bed assignment for optimal visualization 15. Evaluate and identify Safe Patient Handling Equipment needs 16. Provide supervision when out of bed or chair 17. Utilize gait belt as needed to assist with ambulation 18. Place adaptive equipment (cane, walker) within reach 19. Request patient jewelry sales representative bring adaptive equipment/mobility aids from home or obtain and provide as needed 20. Consult pharmacy regarding effects of med's affecting mobility, cognition, and alternatives 21. Obtain physician order for PT if risk factors associated with mobility are present 22. Obtain physician order for OT as appropriate 23. Utilize diversional activities 24. Educate patient and patient jewelry sales representative how to maintain a safe environment during visitation times (notify nurse prior to leaving bedside) 25. Consider appropriateness of medical or non-manager medical affairs 26. Set up voiding schedule as appropriate (every 2 hours) Outcome: Progressing Note: Evaluation of progress towards goal: Area free from hazards, patient call light within reach, will continue to monitor patient for risk of falls. Images from the original note were not included. DISCHARGE PLANNING NOTE Java [employer] met with patient, introduced self, and explained role. Patient educated on safe discharge plan. 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) [I70.261] Claudication ([facility]) [I73.9] Critical limb ischemia of both lower extremities ([facility]) [I70.223] per chart review. Consults: Vascular Surgery Discharge Barriers per Daily Transition Rounds and chart review: remove acevedo, void trial Past Medical History: Diagnosis Date Anemia Dental disease full denture GERD (gastroesophageal reflux disease) Hyperlipidemia Hypertension Prior to admission patient was living alone and self care. Medical equipment patient used prior to admission includes: Cane and Walker - Standard. Patient denies need for transportation/ food/ prescription medication assistance resources. PCP: SKYE BOWMAN MD Pharmacy:[facility] PCP and pharmacy confirmed with patient. CN offered to assist with follow up appointment arrangements; patient declines - states will self-schedule follow up appointments. SKYE BOWMAN MD added to Follow Up Providers for Summary of Care communication. Current discharge plan is: Home self care Services Requested: Services Requested Patient expects to be discharged to:: home Does the patient wish to have family/friend/caregiver involved in their discharge planning?: No, the patient does not wish to have family/friend/caregiver involved in their discharge planning Discharge Disposition: Home with self care Does the patient need discharge transportation arranged?: No Goals: Goals discharge home (pt-stated) Evaluation of progress towards goal: progressing towards discharge Will continue to follow as plan of care develops. CN discussed benefits and importance of medication compliance and follow ups. Please feel free to reach out for any discharge planning questions. - Lorenza Mcdonnell RN 12/18/24 11:48 AM Problem: Pain Goal: Patient goal is pain score less than 4, able to rest, and participant in treatment plan as appropriate Description: INTERVENTIONS: 1. Encourage patient or legal jewelry sales representative to report early pain and ask for pain medicine when needed 2. Assess pain using appropriate pain scale and include the scale used when documenting 3. Administer analgesics based on type and severity of pain and evaluate response within appropriate time frame 4. Implement non-pharmacological measures as appropriate and evaluate response 5. Consider cultural and social influences on pain and pain management 6. Notify LIP if interventions ineffective or patient reports new pain 7. Monitor vital signs including pulse ox, end-tidal CO2 based on pain intervention 8. Reassess pain per policy 9. Teach patient or legal jewelry sales representative interventions for comforting Outcome: Progressing Note: Evaluation of progress towards goal: Patient denies pain at this time. PRN pain meds available. Problem: Safety Goal: Patient will be injury free during hospitalization Description: INTERVENTIONS: 1. Assess patient's risk for falls and implement fall prevention plan of care per policy 2. Provide and maintain a safe environment 3. Proper use of double Identifiers 4. Medication administration using the 5 rights 5. Hand hygiene 6. Specimens are labeled at the bedside 7. Instruct patient/ patient jewelry sales representative about use of safety devices 8. Include patient/ patient jewelry sales representative in decisions related to safety Outcome: Progressing Note: Evaluation of progress towards goal: Patient safety maintained. Hourly rounding, call light within reach. Problem: Infection Goal: Absence of infection during hospitalization Description: INTERVENTIONS 1. Assess and monitor for signs and symptoms of infection. 2. Monitor lab/diagnostic results. 3. Monitor all insertion sites i.e., indwelling lines, tubes and drains. 4. Monitor endotracheal (as able) and nasal secretions for changes in amount and color. 5. Administer medications as ordered. 6. Instruct and encourage patient and family to use good hand hygiene technique. 7. Identify and instruct patient/patient jewelry sales representative in use of appropriate isolation precautions for identified infection/symptoms. 8. Provide and discuss with patient/patient jewelry sales representative on educational MDRO sheet. 9. Encourage and monitor nutritional status daily and consult shopping investigator if indicated. 10. Implement neutropenic guidelines as needed. Outcome: Progressing Note: Evaluation of progress towards goal: Patient VSS, afebrile, labs being monitored daily. Problem: Knowledge Deficit Goal: Patient/patient jewelry sales representative demonstrates understanding of disease process, treatment plan, medications, and discharge instructions Description: INTERVENTIONS 1. Complete learning assessment and assess knowledge base 2. Provide teaching at level of understanding 3. Provide teaching via preferred learning method(s) Outcome: Progressing Note: Evaluation of progress towards goal: Reviewed POC with patient, encouraged to ask questions and reinforced patient education Problem: Moderate - High Risk Fall Score Description: Manuel Fall Score of =/> 25 or indicated by [facility] Assessment Goal: Patient should be free from fall Description: Interventions: 1. [place] to environment 2. Hourly rounds addressing the 4 P's (Pain, Positioning, Possessions, Potty) 3. Clear area of hazards (spills, clutter, electrical cords, unnecessary equipment) 4. Place equipment (bed & TV controls, call light, phone, urinal) within reach 5. Encourage patient to wear glasses and hearing aides as appropriate 6. Maintain bed in lowest position 7. Lock wheels on bed/wheelchair 8. Provide adequate lighting, including night light 9. Assess need for additional bedding, food/fluids, pain med's prior to sleep/routinely 10. Provide gripper slippers or personal non-skid footwear 11. Teach patient and patient jewelry sales representative to maintain environment for safety and engage in all aspects of fall prevention program 12. Remind patient to call for help before getting out of bed 13. Initiate bed/chair/exit alarms supportive devices as appropriate, (chair wedge, no-skid floor mat, raised edge mattress, hip protectors) 14. Locate patient bed assignment for optimal visualization 15. Evaluate and identify Safe Patient Handling Equipment needs 16. Provide supervision when out of bed or chair 17. Utilize gait belt as needed to assist with ambulation 18. Place adaptive equipment (cane, walker) within reach 19. Request patient jewelry sales representative bring adaptive equipment/mobility aids from home or obtain and provide as needed 20. Consult pharmacy regarding effects of med's affecting mobility, cognition, and alternatives 21. Obtain physician order for PT if risk factors associated with mobility are present 22. Obtain physician order for OT as appropriate 23. Utilize diversional activities 24. Educate patient and patient jewelry sales representative how to maintain a safe environment during visitation times (notify nurse prior to leaving bedside) 25. Consider appropriateness of medical or non-manager medical affairs 26. Set up voiding schedule as appropriate (every 2 hours) Outcome: Progressing Note: Evaluation of progress towards goal: Patient safety maintained. Hourly rounding, call light within reach. Problem: Pain Goal: Patient goal is pain score less than 4, able to rest, and participant in treatment plan as appropriate Description: INTERVENTIONS: 1. Encourage patient or legal jewelry sales representative to report early pain and ask for pain medicine when needed 2. Assess pain using appropriate pain scale and include the scale used when documenting 3. Administer analgesics based on type and severity of pain and evaluate response within appropriate time frame 4. Implement non-pharmacological measures as appropriate and evaluate response 5. Consider cultural and social influences on pain and pain management 6. Notify LIP if interventions ineffective or patient reports new pain 7. Monitor vital signs including pulse ox, end-tidal CO2 based on pain intervention 8. Reassess pain per policy 9. Teach patient or legal jewelry sales representative interventions for comforting Outcome: Progressing Note: Evaluation of progress towards goal: Pt encouraged to monitor one's own pain. PRN pain meds available. Continue to monitor pt. Problem: Safety Goal: Patient will be injury free during hospitalization Description: INTERVENTIONS: 1. Assess patient's risk for falls and implement fall prevention plan of care per policy 2. Provide and maintain a safe environment 3. Proper use of double Identifiers 4. Medication administration using the 5 rights 5. Hand hygiene 6. Specimens are labeled at the bedside 7. Instruct patient/ patient jewelry sales representative about use of safety devices 8. Include patient/ patient jewelry sales representative in decisions related to safety Outcome: Progressing Note: Evaluation of progress towards goal: Safety measures initiated/maintained. Patient remains safe from injury/falls, continue to monitor. Problem: Infection Goal: Absence of infection during hospitalization Description: INTERVENTIONS 1. Assess and monitor for signs and symptoms of infection. 2. Monitor lab/diagnostic results. 3. Monitor all insertion sites i.e., indwelling lines, tubes and drains. 4. Monitor endotracheal (as able) and nasal secretions for changes in amount and color. 5. Administer medications as ordered. 6. Instruct and encourage patient and family to use good hand hygiene technique. 7. Identify and instruct patient/patient jewelry sales representative in use of appropriate isolation precautions for identified infection/symptoms. 8. Provide and discuss with patient/patient jewelry sales representative on educational MDRO sheet. 9. Encourage and monitor nutritional status daily and consult shopping investigator if indicated. 10. Implement neutropenic guidelines as needed. Outcome: Progressing Note: Evaluation of progress towards goal: Vitals sign wnl. No sign of infection noted. Problem: Knowledge Deficit Goal: Patient/patient jewelry sales representative demonstrates understanding of disease process, treatment plan, medications, and discharge instructions Description: INTERVENTIONS 1. Complete learning assessment and assess knowledge base 2. Provide teaching at level of understanding 3. Provide teaching via preferred learning method(s) Outcome: Progressing Note: Evaluation of progress towards goal: Patient/patient jewelry sales representative demonstrates understanding of disease process, treatment plan, medications, and discharge instructions. Problem: Discharge Planning Goal: Discharge to post-acute care, other facility, or home with appropriate resources Description: Patient's goal is: INTERVENTIONS 1. Conduct assessment to determine patient/family and health care team treatment goals, and need for post-acute services based on payer coverage, community resources, and patient preferences, and barriers to discharge 2. Coordinate with Social work, Care Navigation, and Utilization Review to arrange appropriate level of services according to patient's needs based on patient preference and payer coverage in collaboration with the physician and health care team 3. Address psychosocial, clinical, and financial barriers to discharge as identified in assessment in conjunction with the patient/family and health care team 4. Consult appropriate ancillary services (i.e.. PT/OT/ST, etc) as needed 5. Communicate with and update the patient/family, physician, and health care team regarding progress on the discharge plan 6. Identify discharge learning needs (meds, wound care, etc). 7. Arrange for needed discharge transportation as appropriate Outcome: Progressing Note: Evaluation of progress towards goal: Discharge to rehab facility, or home with appropriate resources. Problem: Moderate - High Risk Fall Score Description: Manuel Fall Score of =/> 25 or indicated by [facility] Assessment Goal: Patient should be free from fall Description: Interventions: 1. [place] to environment 2. Hourly rounds addressing the 4 P's (Pain, Positioning, Possessions, Potty) 3. Clear area of hazards (spills, clutter, electrical cords, unnecessary equipment) 4. Place equipment (bed & TV controls, call light, phone, urinal) within reach 5. Encourage patient to wear glasses and hearing aides as appropriate 6. Maintain bed in lowest position 7. Lock wheels on bed/wheelchair 8. Provide adequate lighting, including night light 9. Assess need for additional bedding, food/fluids, pain med's prior to sleep/routinely 10. Provide gripper slippers or personal non-skid footwear 11. Teach patient and patient jewelry sales representative to maintain environment for safety and engage in all aspects of fall prevention program 12. Remind patient to call for help before getting out of bed 13. Initiate bed/chair/exit alarms supportive devices as appropriate, (chair wedge, no-skid floor mat, raised edge mattress, hip protectors) 14. Locate patient bed assignment for optimal visualization 15. Evaluate and identify Safe Patient Handling Equipment needs 16. Provide supervision when out of bed or chair 17. Utilize gait belt as needed to assist with ambulation 18. Place adaptive equipment (cane, walker) within reach 19. Request patient jewelry sales representative bring adaptive equipment/mobility aids from home or obtain and provide as needed 20. Consult pharmacy regarding effects of med's affecting mobility, cognition, and alternatives 21. Obtain physician order for PT if risk factors associated with mobility are present 22. Obtain physician order for OT as appropriate 23. Utilize diversional activities 24. Educate patient and patient jewelry sales representative how to maintain a safe environment during visitation times (notify nurse prior to leaving bedside) 25. Consider appropriateness of medical or non-manager medical affairs 26. Set up voiding schedule as appropriate (every 2 hours) Outcome: Progressing Note: Evaluation of progress towards goal: Area free from hazards, patient call light within reach, will continue to monitor patient for risk of falls. Images from the original note were not included. [facility] [place] [facility] Operative Note DATE OF PROCEDURE: 12/17/2024 PATIENT NAME: Isaura Ruiz SURGEON: Surgeons and Role: * Maldonado Prince MD - Primary ASSISTANTS: Dr. Milo Thomas, Vascular Surgery Fellow STAFF: Instructor Watch Assembly Primary: Carly Gmaez RN Instructor Watch Assembly Relief: Evonne Guzman RN Scrub Relief: KAREN Cervantes Scrub Person: ST Yesica Fellow: Milo Thomas MD; Lion Almaraz DO Scrub Orientee: ST Dianelys PRE-OP DIAGNOSIS: Peripheral arterial disease, chronic limb threatening ischemia of right lower extremity, right ischemic foot wounds, hypertension, hyperlipidemia, tobacco abuse POST-OP DIAGNOSIS: same PROCEDURE: 1. Bilateral femoral cutdowns with bilateral iliofemoral endarterectomy with bovine patch angioplasty bilaterally 2. Left to right [id number] bypass 3. Right lower extremity angiogram 4. Left retrograde iliac angiogram 5. Drug coated balloon angioplasty of left common and external iliac arteries ANESTHESIA: general EBL: 150 mL FLUIDS: 1500 ml crystalloid COMPLICATIONS: None. CONDITION: good WOUND CLASS: 1 ADDITIONS (Drains, Specimens, Implants): Drains: * No LDAs found * Specimens: * No specimens in log * Implants: Implant Name Type Inv. Item Serial No. Treating Engineer Lot No. LRB No. Used Action GRAFT CV 60CM 7MM THOR 2 PASS SW [facility] 2 VLR CLGN STR - [id number] - [id number] Graft GRAFT CV 60CM 7MM THOR 2 PASS SW [facility] VLR CLGN STR [id number] Bilateral 1 Implanted PATCH VSC 8X.8CM XENOSURE BVN PRICRD TISS STRL RPL [id number] - [id number] Graft PATCH VSC 8X.8CM XENOSURE BVN PRICRD TISS STRL RPL [id number] [employer] [id number] Left 1 Implanted PATCH VSC 8X.8CM XENOSURE BVN PRICRD TISS STRL RPL [id number] - [id number] Graft PATCH VSC 8X.8CM XENOSURE BVN PRICRD TISS STRL RPL [id number] [employer] [id number] Left 1 Implanted PATCH VSC 8X.8CM XENOSURE BVN PRICRD TISS STRL RPL [id number] - [id number] Graft PATCH VSC 8X.8CM XENOSURE BVN PRICRD TISS STRL RPL [id number] [employer] [id number] Right 1 Implanted HISTORY: The patient is a 69-year-old female with known peripheral arterial disease right lower extremity chronic limb-threatening ischemia with known long segment iliac occlusion on the right.. Management options were discussed and patient elected to pursue left right femoral to femoral bypass with the other indicated procedures as necessary as well as possible on-table angiogram indicated procedures. CONSENT: The planned procedure was explained in detail including discussion of all associated risks/benefits. Alternative options were also discussed in depth. Risks including pain, bleeding/hematoma, SSI/abscess, damage to surrounding tissues, nerve injury, cardiopulmonary complications, renal complications, CVA, and were described. All questions and concerns were addressed and informed consent was obtained, witnessed, and placed in the chart. The decision was made to proceed with intervention as planned. PROCEDURE: Patient was taken to the operative suite and placed in the supine position. She was placed under general endotracheal anesthesia by the anesthesia team. Care was taken to pad all pressure points with foam. Right arm was left down and left arm tucked bilateral groins were clipped Acevedo was placed and then groins were prepped and draped in the usual fashion. Her entire right lower extremity was prepped as well into the field. And right foot was covered with sterile drape. A satisfactory time-out was performed confirming correct patient correct site and correct procedure. Perioperative antibiotics were assured. Bilateral femoral cutdowns were performed with longitudinal skin incisions. Incisions were created with sharp 10 blade scalpel. Subcutaneous tissues were carefully dissected with careful electrocautery. Bilateral inguinal ligaments were identified and dissected and then the femoral artery identified which was difficult because neither had a strong pulse. We then carried out sharp Metzenbaum scissor dissection to expose the entire length of common femoral artery bilaterally in addition to profunda femoral and superficial femoral artery bilaterally. Extension was carried out more proximally in the artery onto the external iliac under the inguinal ligament and large crossing circumflex veins were identified dissected and ligated bilaterally. Proximal and distal control was then obtained of the external iliac profunda femoral and superficial femoral arteries with control obtained with vessel loops on these arteries in addition to the circumflex arteries bilaterally. We then bolused heparin and allowed for 3 minutes of circulation to achieve anticoagulation. We then clamped proximally and distally and performed iliofemoral endarterectomy bilaterally using [place] elevator and obtaining good proximal and distal endpoints. In the right groin we utilized a bovine patch and were able to perform our patch angioplasty with 6 0 Prolene suture in a running standard fashion. onto the external iliac common femoral and superficial femoral artery. Flushing maneuvers were performed prior to completion of the patch. The patch was then completed. The left side required more extensive endarterectomy of the profunda in addition to the superficial femoral artery and so patch angioplasty was completed in a wire formation with a 2nd bovine patch. This was performed with running 6 0 Prolene suture and flushing maneuvers were performed prior to completion of the patch. We then created a tunnel lying anterior to the anterior abdominal fascia and passed a rifampin soaked 7 mm Dacron graft through this tunnel for a left to right femoral to femoral bypass. End-to-side anastomoses were created bilaterally and flushing maneuvers were performed bilaterally prior to completion of our anastomoses. The anastomoses were performed with running 6 0 Prolene sutures. We then accessed the left common femoral artery through the new patch with micropuncture and under direct fluoroscopy carefully advanced our micro wire into the abdominal aorta and exchanged for a micro catheter and stiff glidewire which was placed in the distal thoracic aorta. We then placed a 6 [place] sheath and performed retrograde iliac angiogram. Demonstrated that there was severe stenosis of the left external iliac artery with the 6 [place] sheath almost entirely occlusive but it did demonstrate excellent filling and flow through the femoral to femoral bypass. We then utilized a 6 mm by 200 mm impact drug coated balloon and allowed for 3 minutes of balloon angioplasty of the left common iliac and left external iliac arteries. Completion iliac angiogram performed retrograde demonstrated widely improve patency of the vessel. We did a right lower extremity angiogram from this left 6 [place] sheath and demonstrated that right common femoral right profunda femoral and right superficial femoral arteries were all patent with mild stenosis present. Popliteal artery in addition to tibioperoneal trunk were both patent with mild atherosclerotic disease present and right posterior tibial artery was widely patent down to the level of the foot. There was some small-vessel disease in the foot noted but nothing that could be intervened on at this time. Bilateral groins were then examined for hemostasis with 6 0 Prolene suture buttressing utilized where needed. We also used careful electrocautery. We also gave protamine anticoagulation reversal. Fibular hemostatic agent was used temporarily to assist with hemostasis. When we were assured that both groins had adequate hemostasis we utilized 2-0 Vicryl suture for the deep fascial layers stent 3-0 Vicryl suture for the subcutaneous fascial layers and deep dermal layers. We then closed bilateral groins with 4-0 Monocryl suture in a running subcuticular fashion. All sponge and instrument counts were correct at the end of the procedure. The patient tolerated the procedure well. They were awakened from anesthesia and transported to PACU in stable condition. Dr. Prince was present for the entire procedure. Cosigned by Maldonado Prince MD at 12/18/2024 6:43 PM EDT Associated attestation - Maldonado Prince MD - 12/18/2024 6:43 PM EDT I was present and performed all the critical portions of the procedure, performed structured guidance at appropriate times, and was always immediately available. aMldonado Prince MD, [facility] Vascular Surgery Images from the original note were not included. 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) [I70.261] Claudication (CMS-HCC) [I73.9] POST-OP DIAGNOSIS: Post-Op Diagnosis Codes: * 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) [I70.261] * Claudication (CMS-HCC) [I73.9] PROCEDURE DETAILS: Procedure(s): LEFT DCB ANGIOPLASTY COMMON & EXTERNAL ILIAC ARTERY (Left) - Wound Class: Clean BYPASS ARTERY LEFT-RIGHT FEMORAL (Bilateral) - Wound Class: Clean ANGIOGRAM RIGHT LEG/ LEFT ILIAC ANGIOGRAM (Right) - Wound Class: Clean BILATERAL FEMORAL CUTDOWNS/ BILATERAL FEMORAL ENDARTERECTOMY (Bilateral) - Wound Class: Clean BOVINE PATCH ANGIOPLASTY FEMORAL (Bilateral) - Wound Class: Clean ANESTHESIA TYPE: General Post-Op Diagnosis Codes: * 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 Item Serial No. Treating Engineer Lot No. LRB No. Used Action GRAFT CV 60CM 7MM THOR 2 [address] [facility] 2 VLR CLGN STR - [id number] - [id number] Graft GRAFT CV 60CM 7MM THOR 2 PASS SW [facility] 2 VLR CLGN STR [id number] [id number] Bilateral 1 Implanted PATCH VSC 8X.8CM XENOSURE BVN PRICRD TISS STRL RPL [id number] - [id number] Graft PATCH VSC 8X.8CM XENOSURE BVN PRICRD TISS STRL RPL [id number] LeMaitre [id number] Left 1 Implanted PATCH VSC 8X.8CM XENOSURE BVN PRICRD TISS STRL RPL [id number] - [id number] Graft PATCH VSC 8X.8CM XENOSURE BVN PRICRD TISS STRL RPL [id number] LeMaitre [id number] Left 1 Implanted PATCH VSC 8X.8CM XENOSURE BVN PRICRD TISS STRL RPL [id number] - [id number] Graft PATCH VSC 8X.8CM XENOSURE BVN PRICRD TISS STRL RPL [id number] LeMaitre [id number] Right 1 Implanted ESTIMATED BLOOD LOSS: 150 mL TOTAL IVF: Please see anesthesia documentation FLUORO TIME: 2.3 min DOSE: 71.6 mGy TOTAL CONTRAST: 39 ml CONDITION: stable WOUND CLASS: clean FINDINGS: PULSE EXAM: monophasic right posterior tibial artery on Doppler See dictated procedure report for full details. Lion Almaraz DO MA, Vascular Surgery Fellow (PGY-6) Anesthesia review: Angioplasty/Fem Bypass: TTH: GA. Hx of HTN: GERD. no c/p or SOb. EKG: STRESS 12/12/24. Saw cardiology 12/02, unable to get office notes Reviewed and accepted by Dr Monreal with no further orders Cardiology note/ clearance requested documented in this encounter [facility] 12-19-2024 Hospital course Narrative HOSPITAL DISCHARGE SUMMARY Patient ID: Isaura Ruiz Acct: [id number] Patient's PCP: SKYE BOWMAN MD Admit Date: 12/17/2024 Discharge Date: Length of Stay: 2 Days Admitting Physician: Maldonado Prince MD Discharge Physician: Maldonado Prince MD Discharge Diagnoses: Patient Active Problem List Diagnosis Date Noted Critical limb ischemia of both lower [place]/17/2024 [place]/02/2024 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 Code Status: Code Status Information Code Status Full Code Summary of Hospital Course: Isaura Ruiz is a 69 y.o. female with significant past medical history of hypertension, hyperlipidemia, tobacco use and right ischemic foot wounds with chronic limb-threatening ischemia who presented to [facility] for elective vascular procedure. Patient had bilateral femoral cutdowns with bilateral iliofemoral endarterectomy with a bovine angioplasty, yupu-ot-fxbma femoral to femoral bypass and right lower extremity angiogram with left retrograde iliac angiogram, drug coated balloon angioplasty of left common and external iliac arteries on 12/[address] Prince. Overall the patient's postoperative course was fairly uncomplicated however she did require 1 unit of packed red blood cells yesterday afternoon because of hemoglobin of 7.3. Post transfusion her hemoglobin went up to 8.1 and this morning hemoglobin was 8.0. Patient current denies any lightheaded dizziness, shortness of breath, chest pain, or lower extremity swelling. The above is only intended to summarize the hospital course. Please see complete medical record for further details. Significant Diagnostic Studies: Fluoroscopy track vascular operative Result Date: 12/17/2024 Narrative: Please refer to the vascular OP note for a dictation on this exam. Nuc stress Guillermina or Guillermina/Exe-cardiology read Result Date: 12/12/2024 Narrative: Negative Lexiscan EKG stress test for inducible ischemia. No Lexiscan induced chest pain. Occasional PVCs noted at rest as well as with Lexiscan infusion. Nuclear images will be reviewed and reported separately. Nuc stress Lexiscan Result Date: 12/12/2024 Narrative: Examination: SPECT Myocardial with Wall Motion and Ejection Fraction Analysis with Lexiscan. History:Preop. Abnormal EKG. Comparison: None Myocardial perfusion is evaluated at rest using 10mCi of Tc99m sestamibi for the resting study. Myocardial perfusion was subsequently enhanced using intravenous Lexiscan, monitored by cardiology. At peak effect, 30.8mCi Tc99m sestamibi for the stress study. Routine SPECT imaging was utilized for both the resting and Lexiscan enhanced scans. Findings: Review of the reconstructed tomographic images demonstrate a normal distribution of activity throughout the myocardium on both the Lexiscan enhanced exam as well as the resting study. There is no evidence of myocardial ischemia. Left Ventricle: Wall motion is assessed in three projections and is normal. The global ejection fraction of the left ventricle is calculated to be 70% and is within the normal range for our laboratory. IMPRESSION: 1. Normal Lexiscan enhanced sestamibi myocardial perfusion exam, without evidence of myocardial ischemia. 2. Normal left ventricle wall motion and ejection fraction. Finalized by Morales Barkley MD on 12/12/2024 10:17 AM Treatments: As noted above Disposition: Discharge to home Discharge Condition: good. Discharge Instructions: Take all medications as prescribed, keep all follow-up appointments Follow Up: cheduled Outpatient Follow Up: Future Appointments Date Time Provider Department Center 01/02/2025 10:20 AM Maldonado Prince MD [facility] Follow-up Information SKYE BOWMAN MD Follow up. Specialty: Family Medicine Contact information: [facility] [id number] Scheduled Appointments Jan 02, 2025 10:20 AM (Arrive by 10:05 AM) POST OPERATION VISIT with MD Gr[facility] ([facility]) [address] [place] [id number] At the time of your visit please be aware of the following COVID-19 information: If you develop a new cough, fever, or shortness of breath, please call before your appointment. Please plan to arrive at least 15 minutes earlier than your appointment time as screening and registration may take longer than anticipated. Please consider the [employer]-in to pre-register and make your co-payment before your visit. This will reduce your registration time. Please be aware that the [facility] facility you are visiting may require you to wear a mask. It will not be unusual if you find that masking is required in some locations and not required in other locations. The determination is made based on the amount of COVID transmission and infection rate in the community where the facility is located. Please be prepared to wear a mask if the facility you are visiting requires masking. Masks are available upon entry into the facility; however, it is best to bring your own mask and put it on before entering the facility. If wearing a mask is not possible due to an underlying health condition, please work with your care team on an alternate plan before your scheduled appointment. With primary care provider, SKYE BOWMAN MD, as needed Discharge Medications: Medication List CONTINUE taking these medications Instructions Last Dose Given Next Dose Due aspirin 81 mg Take 1 tablet (81 mg total) by mouth in the morning. atorvastatin 40 mg tablet Commonly known as: LIPITOR Take 1 tablet (40 mg total) by mouth in the morning. baclofen 10 mg tablet Commonly known as: LIORESAL Take 1 tablet (10 mg total) by mouth 3 (three) times a day. cilostazoL 100 mg tablet Commonly known as: PLETAL take 1 tablet by mouth twice a day cloNIDine 0.1 mg tablet Commonly known as: CATAPRES Take 1 tablet (0.1 mg total) by mouth in the morning. clopidogreL 75 mg tablet Commonly known as: PLAVIX Take 1 tablet (75 mg total) by mouth in the morning. gabapentin 300 mg capsule Commonly known as: NEURONTIN Take 1 capsule (300 mg total) by mouth 3 (three) times a day. lisinopriL 10 mg tablet Commonly known as: PRINIVIL,ZESTRIL Take 1 tablet (10 mg total) by mouth in the morning. zonisamide 50 mg capsule Commonly known as: ZONEGRAN Take 2 capsules (100 mg total) by mouth in the morning. Discharge Activity Level: As tolerated Discharge Diet: Regular texture Physical Exam at Discharge Patient was seen and examined bedside he appears to be doing overall well without any complaints or issues. Her vital signs are stable and her surgical incisions are clean dry intact without any signs of infection, drainage, or bleeding. Her right lower extremity distal pulses are Doppler strong. Her left lower extremities are palpable 1+ DP and PT. Patient has ambulated, eaten, and voided. Her hemoglobin this morning stable at 8.0 without any symptoms. Patient is deemed appropriate for discharge today. Patient will discharge on aspirin, Lipitor, Plavix, and Pletal. Time Spent on discharge is more than 30 minutes in the examination, evaluation, counseling and review of medications and discharge plan. Frank 12/19/24 1328 documented in this encounter [facility] 12-19-2024 Plan of care note Problem: Pain Goal: Patient goal is pain score less than 4, able to rest, and participant in treatment plan as appropriate Description: INTERVENTIONS: 1. Encourage patient or legal jewelry sales representative to report early pain and ask for pain medicine when needed 2. Assess pain using appropriate pain scale and include the scale used when documenting 3. Administer analgesics based on type and severity of pain and evaluate response within appropriate time frame 4. Implement non-pharmacological measures as appropriate and evaluate response 5. Consider cultural and social influences on pain and pain management 6. Notify LIP if interventions ineffective or patient reports new pain 7. Monitor vital signs including pulse ox, end-tidal CO2 based on pain intervention 8. Reassess pain per policy 9. Teach patient or legal jewelry sales representative interventions for comforting Outcome: Progressing Note: Evaluation of progress towards goal: pt says po pain meds are controling her pain Problem: Safety Goal: Patient will be injury free during hospitalization Description: INTERVENTIONS: 1. Assess patient's risk for falls and implement fall prevention plan of care per policy 2. Provide and maintain a safe environment 3. Proper use of double Identifiers 4. Medication administration using the 5 rights 5. Hand hygiene 6. Specimens are labeled at the bedside 7. Instruct patient/ patient jewelry sales representative about use of safety devices 8. Include patient/ patient jewelry sales representative in decisions related to safety Outcome: Progressing Note: Evaluation of progress towards goal: pt free from falls Problem: Infection Goal: Absence of infection during hospitalization Description: INTERVENTIONS 1. Assess and monitor for signs and symptoms of infection. 2. Monitor lab/diagnostic results. 3. Monitor all insertion sites i.e., indwelling lines, tubes and drains. 4. Monitor endotracheal (as able) and nasal secretions for changes in amount and color. 5. Administer medications as ordered. 6. Instruct and encourage patient and family to use good hand hygiene technique. 7. Identify and instruct patient/patient jewelry sales representative in use of appropriate isolation precautions for identified infection/symptoms. 8. Provide and discuss with patient/patient jewelry sales representative on educational MDRO sheet. 9. Encourage and monitor nutritional status daily and consult shopping investigator if indicated. 10. Implement neutropenic guidelines as needed. Outcome: Progressing Note: Evaluation of progress towards goal: pt afebrile-cont to monitor Problem: Knowledge Deficit Goal: Patient/patient jewelry sales representative demonstrates understanding of disease process, treatment plan, medications, and discharge instructions Description: INTERVENTIONS 1. Complete learning assessment and assess knowledge base 2. Provide teaching at level of understanding 3. Provide teaching via preferred learning method(s) Outcome: Progressing Note: Evaluation of progress towards goal: pt updated on poc Problem: Discharge Planning Goal: Discharge to post-acute care, other facility, or home with appropriate resources Description: Patient's goal is: INTERVENTIONS 1. Conduct assessment to determine patient/family and health care team treatment goals, and need for post-acute services based on payer coverage, community resources, and patient preferences, and barriers to discharge 2. Coordinate with Social work, Care Navigation, and Utilization Review to arrange appropriate level of services according to patient's needs based on patient preference and payer coverage in collaboration with the physician and health care team 3. Address psychosocial, clinical, and financial barriers to discharge as identified in assessment in conjunction with the patient/family and health care team 4. Consult appropriate ancillary services (i.e.. PT/OT/ST, etc) as needed 5. Communicate with and update the patient/family, physician, and health care team regarding progress on the discharge plan 6. Identify discharge learning needs (meds, wound care, etc). 7. Arrange for needed discharge transportation as appropriate Outcome: Progressing Note: Evaluation of progress towards goal: pt going home today [facility] 12-19-2024 Progress note Formatting of t his note might be different from the original. DISCHARGE PLANNING NOTE Case discussed in daily transition rounds and chart reviewed by CN. Barriers to discharge include no medical barriers anticipate DC later today. Discharge Plan remains: Home self care. CN will continue to follow and is available should any further needs arise. - Lorenza Mcdonnell RN 12/19/24 10:04 AM [facility] 12-19-2024 Plan of care note Problem: Pain Goal: Patient goal is pain score less than 4, able to rest, and participant in treatment plan as appropriate Description: INTERVENTIONS: 1. Encourage patient or legal jewelry sales representative to report early pain and ask for pain medicine when needed 2. Assess pain using appropriate pain scale and include the scale used when documenting 3. Administer analgesics based on type and severity of pain and evaluate response within appropriate time frame 4. Implement non-pharmacological measures as appropriate and evaluate response 5. Consider cultural and social influences on pain and pain management 6. Notify LIP if interventions ineffective or patient reports new pain 7. Monitor vital signs including pulse ox, end-tidal CO2 based on pain intervention 8. Reassess pain per policy 9. Teach patient or legal jewelry sales representative interventions for comforting Outcome: Progressing Note: Evaluation of progress towards goal: Pt encouraged to monitor one's own pain. PRN pain meds available. Continue to monitor pt. Problem: Safety Goal: Patient will be injury free during hospitalization Description: INTERVENTIONS: 1. Assess patient's risk for falls and implement fall prevention plan of care per policy 2. Provide and maintain a safe environment 3. Proper use of double Identifiers 4. Medication administration using the 5 rights 5. Hand hygiene 6. Specimens are labeled at the bedside 7. Instruct patient/ patient jewelry sales representative about use of safety devices 8. Include patient/ patient jewelry sales representative in decisions related to safety Outcome: Progressing Note: Evaluation of progress towards goal: Safety measures initiated/maintained. Patient remains safe from injury/falls, continue to monitor. Problem: Infection Goal: Absence of infection during hospitalization Description: INTERVENTIONS 1. Assess and monitor for signs and symptoms of infection. 2. Monitor lab/diagnostic results. 3. Monitor all insertion sites i.e., indwelling lines, tubes and drains. 4. Monitor endotracheal (as able) and nasal secretions for changes in amount and color. 5. Administer medications as ordered. 6. Instruct and encourage patient and family to use good hand hygiene technique. 7. Identify and instruct patient/patient jewelry sales representative in use of appropriate isolation precautions for identified infection/symptoms. 8. Provide and discuss with patient/patient jewelry sales representative on educational MDRO sheet. 9. Encourage and monitor nutritional status daily and consult shopping investigator if indicated. 10. Implement neutropenic guidelines as needed. Outcome: Progressing Note: Evaluation of progress towards goal: Vitals sign wnl. No sign of infection noted. Problem: Knowledge Deficit Goal: Patient/patient jewelry sales representative demonstrates understanding of disease process, treatment plan, medications, and discharge instructions Description: INTERVENTIONS 1. Complete learning assessment and assess knowledge base 2. Provide teaching at level of understanding 3. Provide teaching via preferred learning method(s) Outcome: Progressing Note: Evaluation of progress towards goal: Patient/patient jewelry sales representative demonstrates understanding of disease process, treatment plan, medications, and discharge instructions. Problem: Discharge Planning Goal: Discharge to post-acute care, other facility, or home with appropriate resources Description: Patient's goal is: INTERVENTIONS 1. Conduct assessment to determine patient/family and health care team treatment goals, and need for post-acute services based on payer coverage, community resources, and patient preferences, and barriers to discharge 2. Coordinate with Social work, Care Navigation, and Utilization Review to arrange appropriate level of services according to patient's needs based on patient preference and payer coverage in collaboration with the physician and health care team 3. Address psychosocial, clinical, and financial barriers to discharge as identified in assessment in conjunction with the patient/family and health care team 4. Consult appropriate ancillary services (i.e.. PT/OT/ST, etc) as needed 5. Communicate with and update the patient/family, physician, and health care team regarding progress on the discharge plan 6. Identify discharge learning needs (meds, wound care, etc). 7. Arrange for needed discharge transportation as appropriate Outcome: Progressing Note: Evaluation of progress towards goal: Discharge to rehab facility, or home with appropriate resources. Problem: Moderate - High Risk Fall Score Description: Manuel Fall Score of =/> [address] [facility] Assessment Goal: Patient should be free from fall Description: Interventions: 1. [place] to environment 2. Hourly rounds addressing the 4 P's (Pain, Positioning, Possessions, Potty) 3. Clear area of hazards (spills, clutter, electrical cords, unnecessary equipment) 4. Place equipment (bed & TV controls, call light, phone, urinal) within reach 5. Encourage patient to wear glasses and hearing aides as appropriate 6. Maintain bed in lowest position 7. Lock wheels on bed/wheelchair 8. Provide adequate lighting, including night light 9. Assess need for additional bedding, food/fluids, pain med's prior to sleep/routinely 10. Provide gripper slippers or personal non-skid footwear 11. Teach patient and patient jewelry sales representative to maintain environment for safety and engage in all aspects of fall prevention program 12. Remind patient to call for help before getting out of bed 13. Initiate bed/chair/exit alarms supportive devices as appropriate, (chair wedge, no-skid floor mat, raised edge mattress, hip protectors) 14. Locate patient bed assignment for optimal visualization 15. Evaluate and identify Safe Patient Handling Equipment needs 16. Provide supervision when out of bed or chair 17. Utilize gait belt as needed to assist with ambulation 18. Place adaptive equipment (cane, walker) within reach 19. Request patient jewelry sales representative bring adaptive equipment/mobility aids from home or obtain and provide as needed 20. Consult pharmacy regarding effects of med's affecting mobility, cognition, and alternatives 21. Obtain physician order for PT if risk factors associated with mobility are present 22. Obtain physician order for OT as appropriate 23. Utilize diversional activities 24. Educate patient and patient jewelry sales representative how to maintain a safe environment during visitation times (notify nurse prior to leaving bedside) 25. Consider appropriateness of medical or non-manager medical affairs 26. Set up voiding schedule as appropriate (every 2 hours) Outcome: Progressing Note: Evaluation of progress towards goal: Area free from hazards, patient call light within reach, will continue to monitor patient for risk of falls. [facility] 12-18-2024 Progress note Formatting of t his note is different from the original. Images from the original note were not included. DISCHARGE PLANNING NOTE [employer] met with patient, introduced self, and explained role. Patient educated on safe discharge plan. 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) [I70.261] Claudication ([facility]) [I73.9] Critical limb ischemia of both lower extremities ([facility]) [I70.223] per chart review. Consults: Vascular Surgery Discharge Barriers per Daily Transition Rounds and chart review: remove acevedo, void trial Past Medical History: Diagnosis Date Anemia Dental disease full denture GERD (gastroesophageal reflux disease) Hyperlipidemia Hypertension Prior to admission patient was living alone and self care. Medical equipment patient used prior to admission includes: Cane and Walker - Standard. Patient denies need for transportation/ food/ prescription medication assistance resources. PCP: SKYE BOWMAN MD Pharmacy:[facility] PCP and pharmacy confirmed with patient. CN offered to assist with follow up appointment arrangements; patient declines - states will self-schedule follow up appointments. SKYE BOWMAN MD added to Follow Up Providers for Summary of Care communication. Current discharge plan is: Home self care Services Requested: Services Requested Patient expects to be discharged to:: home Does the patient wish to have family/friend/caregiver involved in their discharge planning?: No, the patient does not wish to have family/friend/caregiver involved in their discharge planning Discharge Disposition: Home with self care Does the patient need discharge transportation arranged?: No Goals: Goals discharge home (pt-stated) Evaluation of progress towards goal: progressing towards discharge Will continue to follow as plan of care develops. CN discussed benefits and importance of medication compliance and follow ups. Please feel free to reach out for any discharge planning questions. - Lorenza Mcdonnell RN 12/18/24 11:48 AM [facility] 12-18-2024 Plan of care note Problem: Pain Goal: Patient goal is pain score less than 4, able to rest, and participant in treatment plan as appropriate Description: INTERVENTIONS: 1. Encourage patient or legal jewelry sales representative to report early pain and ask for pain medicine when needed 2. Assess pain using appropriate pain scale and include the scale used when documenting 3. Administer analgesics based on type and severity of pain and evaluate response within appropriate time frame 4. Implement non-pharmacological measures as appropriate and evaluate response 5. Consider cultural and social influences on pain and pain management 6. Notify LIP if interventions ineffective or patient reports new pain 7. Monitor vital signs including pulse ox, end-tidal CO2 based on pain intervention 8. Reassess pain per policy 9. Teach patient or legal jewelry sales representative interventions for comforting Outcome: Progressing Note: Evaluation of progress towards goal: Patient denies pain at this time. PRN pain meds available. Problem: Safety Goal: Patient will be injury free during hospitalization Description: INTERVENTIONS: 1. Assess patient's risk for falls and implement fall prevention plan of care per policy 2. Provide and maintain a safe environment 3. Proper use of double Identifiers 4. Medication administration using the 5 rights 5. Hand hygiene 6. Specimens are labeled at the bedside 7. Instruct patient/ patient jewelry sales representative about use of safety devices 8. Include patient/ patient jewelry sales representative in decisions related to safety Outcome: Progressing Note: Evaluation of progress towards goal: Patient safety maintained. Hourly rounding, call light within reach. Problem: Infection Goal: Absence of infection during hospitalization Description: INTERVENTIONS 1. Assess and monitor for signs and symptoms of infection. 2. Monitor lab/diagnostic results. 3. Monitor all insertion sites i.e., indwelling lines, tubes and drains. 4. Monitor endotracheal (as able) and nasal secretions for changes in amount and color. 5. Administer medications as ordered. 6. Instruct and encourage patient and family to use good hand hygiene technique. 7. Identify and instruct patient/patient jewelry sales representative in use of appropriate isolation precautions for identified infection/symptoms. 8. Provide and discuss with patient/patient jewelry sales representative on educational MDRO sheet. 9. Encourage and monitor nutritional status daily and consult shopping investigator if indicated. 10. Implement neutropenic guidelines as needed. Outcome: Progressing Note: Evaluation of progress towards goal: Patient VSS, afebrile, labs being monitored daily. Problem: Knowledge Deficit Goal: Patient/patient jewelry sales representative demonstrates understanding of disease process, treatment plan, medications, and discharge instructions Description: INTERVENTIONS 1. Complete learning assessment and assess knowledge base 2. Provide teaching at level of understanding 3. Provide teaching via preferred learning method(s) Outcome: Progressing Note: Evaluation of progress towards goal: Reviewed POC with patient, encouraged to ask questions and reinforced patient education Problem: Moderate - High Risk Fall Score Description: Manuel Fall Score of =/> 25 or indicated by [facility] Assessment Goal: Patient should be free from fall Description: Interventions: 1. [place] to environment 2. Hourly rounds addressing the 4 P's (Pain, Positioning, Possessions, Potty) 3. Clear area of hazards (spills, clutter, electrical cords, unnecessary equipment) 4. Place equipment (bed & TV controls, call light, phone, urinal) within reach 5. Encourage patient to wear glasses and hearing aides as appropriate 6. Maintain bed in lowest position 7. Lock wheels on bed/wheelchair 8. Provide adequate lighting, including night light 9. Assess need for additional bedding, food/fluids, pain med's prior to sleep/routinely 10. Provide gripper slippers or personal non-skid footwear 11. Teach patient and patient jewelry sales representative to maintain environment for safety and engage in all aspects of fall prevention program 12. Remind patient to call for help before getting out of bed 13. Initiate bed/chair/exit alarms supportive devices as appropriate, (chair wedge, no-skid floor mat, raised edge mattress, hip protectors) 14. Locate patient bed assignment for optimal visualization 15. Evaluate and identify Safe Patient Handling Equipment needs 16. Provide supervision when out of bed or chair 17. Utilize gait belt as needed to assist with ambulation 18. Place adaptive equipment (cane, walker) within reach 19. Request patient jewelry sales representative bring adaptive equipment/mobility aids from home or obtain and provide as needed 20. Consult pharmacy regarding effects of med's affecting mobility, cognition, and alternatives 21. Obtain physician order for PT if risk factors associated with mobility are present 22. Obtain physician order for OT as appropriate 23. Utilize diversional activities 24. Educate patient and patient jewelry sales representative how to maintain a safe environment during visitation times (notify nurse prior to leaving bedside) 25. Consider appropriateness of medical or non-manager medical affairs 26. Set up voiding schedule as appropriate (every 2 hours) Outcome: Progressing Note: Evaluation of progress towards goal: Patient safety maintained. Hourly rounding, call light within reach. [facility] 12-18-2024 History of Presen t illness Narrative Images from the original note were not included. [facility] [place] [facility] PROGRESS NOTE Subjective: Patient seen and examined. [place]. Afebrile. VSS. She reported some mild pain in her left foot. Denied any extremity numbness or tingling. Denied any chest pain, shortness of breath, fevers or chills. Vitals: Vitals: 12/18/24 1155 BP: 94/50 Pulse: 80 Resp: Temp: SpO2: I/O last 3 completed shifts: In: 2049 [P.O.:550; I.V.:1500] Out: 785 [Urine:635; Blood:150] I/O this shift: In: 2039 [P.O.:2039] Out: 400 [Urine:400] Physical Exam: General: Awake, alert and oriented x3, in no acute distress HENT: Head atraumatic, normocephalic, external ears and nose are normal Eyes: Conjunctivae clear, non-icteric, EOMI Pulmonary: Regular, non-labored respirations, without use of accessory muscles, no stridor Cardiovascular: Regular rate and rhythm Vascular: doppler PT/DP bilaterally Abdomen: Soft, non-tender, non-distended. No rebound or guarding. Musculoskeletal: Range of motion grossly normal x4 extremities, no deformity x4 extremities Neurological: No gross neurologic deficits noted. Skin: Warm, dry, without jaundice; erythema and lesions to left foot as pictured below; groin incisions are clean, dry, and intact Labs: Lab Results Component Value Date WBC 10.9 12/17/2024 HGB 7.6 (L) 12/17/2024 HCT 24.0 (L) 12/17/2024 MCV 60 (L) 12/17/2024 PLT 288 12/17/2024 Lab Results Component Value Date SODIUM 138 12/18/2024 K 3.9 12/18/2024 CL 107 12/18/2024 CO2 23 12/18/2024 BUN 21 12/18/2024 CREATININE 1.03 (H) 12/18/2024 GLU 156 (H) 12/18/2024 MG 2.0 12/18/2024 PHOSPHORUS 3.2 12/18/2024 CALCIUM 8.4 (L) 12/18/2024 Lab Results Component Value Date ALT 35 (H) 12/18/2024 AST 27 12/18/2024 ALKPHOS 84 12/18/2024 Lab Results Component Value Date INR 1.0 12/12/2024 PROTIME 11.2 12/12/2024 Medications: acetaminophen, 1,000 mg, oral, 4x Daily aspirin, 81 mg, oral, Daily aspirin, 81 mg, oral, Daily atorvastatin, 40 mg, oral, Daily baclofen, 10 mg, oral, TID cilostazoL, 100 mg, oral, BID cloNIDine, 0.1 mg, oral, Daily clopidogreL, 75 mg, oral, Daily gabapentin, 300 mg, oral, TID heparin (porcine), 5,000 Units, subcutaneous, Q8H CHELLY lisinopriL, 10 mg, oral, Daily methocarbamoL, 750 mg, oral, TID zonisamide, 100 mg, oral, Daily dextrose 5 % in water, 100 mL/hr sodium chloride 0.9 %, 10 mL/hr sodium chloride 0.9 %, 10 mL/hr sodium chloride 0.9 %, 10 mL/hr Assessment and Plan: Isaura Ruiz is a 69 y.o. female with history of HTN, HLD, tobacco use, right ischemic foot wounds, chronic limb threatening ischemia of right lower extremity and peripheral arterial disease who presented for elective vascular procedure. She is now status post bilateral femoral cutdowns with bilateral iliofemoral endarterectomy with bovine patch angioplasty bilaterally, left to right [id number] bypass, right lower extremity angiogram, left retrograde iliac angiogram, drug coated balloon angioplasty of left common and external iliac arteries on 12/17. - Analgesia: Multimodal - Diet: Regular - Antiplatelets: Aspirin, Plavix, Pletal - Anticoagulation: Subcutaneous heparin - Continue to encourage ambulation, activity, and IS use - DVT/VTE prophylaxis: Subcutaneous heparin - continue vascular checks Corry Navarrete MD General Surgery Resident PGY-1 [facility] Cosigned by Iliana Carter DO at 12/19/2024 12:07 PM EDT Associated attestation - Iliana Carter DO - 12/19/2024 12:07 PM EDT Attending Physician Attestation: I saw the patient 12/18/2024. I participated and was physically present during the critical/hurtado portions of the service. I was directly involved in the management and treatment plan of the patient. I reviewed the fellow/resident's note. Additional Notes/Findings: 69 yo female w/ h/o GERD, HLD, HTN, and peripheral arterial disease w/ non-healing right foot wounds who was admitted 12/18/24 s/p bilat fem exposure, bilat iliofem endart/PA, L to R fem/fem bypass, angiogram, retrograde L iliac angiogram w/ DCB L STAS/EIA (Dr. Prince) Pt seen and examined at bedside. Pain overall well controlled. +R DP/PT doppler signal. Groin incisions CDI. RECOMMENDATIONS: R CLTI w/ tissue loss: now s/p revasc Post-op YESSY/PVR and LE art duplex to be scheduled outpt. Wound care: continue w/ betadine and local wound care Medical mgmt: Antiplatelet: ASA, plavix, pletal Statin: lipitor 40mg DVT prophylaxis: heparin 5k TID PT/OT and DC planning Dr. Iliana Carter DO, MPH, RPVI [facility] documented in this encounter [facility] 12-18-2024 Plan of care note Problem: Pain Goal: Patient goal is pain score less than 4, able to rest, and participant in treatment plan as appropriate Description: INTERVENTIONS: 1. Encourage patient or legal jewelry sales representative to report early pain and ask for pain medicine when needed 2. Assess pain using appropriate pain scale and include the scale used when documenting 3. Administer analgesics based on type and severity of pain and evaluate response within appropriate time frame 4. Implement non-pharmacological measures as appropriate and evaluate response 5. Consider cultural and social influences on pain and pain management 6. Notify LIP if interventions ineffective or patient reports new pain 7. Monitor vital signs including pulse ox, end-tidal CO2 based on pain intervention 8. Reassess pain per policy 9. Teach patient or legal jewelry sales representative interventions for comforting Outcome: Progressing Note: Evaluation of progress towards goal: Pt encouraged to monitor one's own pain. PRN pain meds available. Continue to monitor pt. Problem: Safety Goal: Patient will be injury free during hospitalization Description: INTERVENTIONS: 1. Assess patient's risk for falls and implement fall prevention plan of care per policy 2. Provide and maintain a safe environment 3. Proper use of double Identifiers 4. Medication administration using the 5 rights 5. Hand hygiene 6. Specimens are labeled at the bedside 7. Instruct patient/ patient jewelry sales representative about use of safety devices 8. Include patient/ patient jewelry sales representative in decisions related to safety Outcome: Progressing Note: Evaluation of progress towards goal: Safety measures initiated/maintained. Patient remains safe from injury/falls, continue to monitor. Problem: Infection Goal: Absence of infection during hospitalization Description: INTERVENTIONS 1. Assess and monitor for signs and symptoms of infection. 2. Monitor lab/diagnostic results. 3. Monitor all insertion sites i.e., indwelling lines, tubes and drains. 4. Monitor endotracheal (as able) and nasal secretions for changes in amount and color. 5. Administer medications as ordered. 6. Instruct and encourage patient and family to use good hand hygiene technique. 7. Identify and instruct patient/patient jewelry sales representative in use of appropriate isolation precautions for identified infection/symptoms. 8. Provide and discuss with patient/patient jewelry sales representative on educational MDRO sheet. 9. Encourage and monitor nutritional status daily and consult shopping investigator if indicated. 10. Implement neutropenic guidelines as needed. Outcome: Progressing Note: Evaluation of progress towards goal: Vitals sign wnl. No sign of infection noted. Problem: Knowledge Deficit Goal: Patient/patient jewelry sales representative demonstrates understanding of disease process, treatment plan, medications, and discharge instructions Description: INTERVENTIONS 1. Complete learning assessment and assess knowledge base 2. Provide teaching at level of understanding 3. Provide teaching via preferred learning method(s) Outcome: Progressing Note: Evaluation of progress towards goal: Patient/patient jewelry sales representative demonstrates understanding of disease process, treatment plan, medications, and discharge instructions. Problem: Discharge Planning Goal: Discharge to post-acute care, other facility, or home with appropriate resources Description: Patient's goal is: INTERVENTIONS 1. Conduct assessment to determine patient/family and health care team treatment goals, and need for post-acute services based on payer coverage, community resources, and patient preferences, and barriers to discharge 2. Coordinate with Social work, Care Navigation, and Utilization Review to arrange appropriate level of services according to patient's needs based on patient preference and payer coverage in collaboration with the physician and health care team 3. Address psychosocial, clinical, and financial barriers to discharge as identified in assessment in conjunction with the patient/family and health care team 4. Consult appropriate ancillary services (i.e.. PT/OT/ST, etc) as needed 5. Communicate with and update the patient/family, physician, and health care team regarding progress on the discharge plan 6. Identify discharge learning needs (meds, wound care, etc). 7. Arrange for needed discharge transportation as appropriate Outcome: Progressing Note: Evaluation of progress towards goal: Discharge to rehab facility, or home with appropriate resources. Problem: Moderate - High Risk Fall Score Description: Manuel Fall Score of =/> [address] [facility] Assessment Goal: Patient should be free from fall Description: Interventions: 1. [place] to environment 2. Hourly rounds addressing the 4 P's (Pain, Positioning, Possessions, Potty) 3. Clear area of hazards (spills, clutter, electrical cords, unnecessary equipment) 4. Place equipment (bed & TV controls, call light, phone, urinal) within reach 5. Encourage patient to wear glasses and hearing aides as appropriate 6. Maintain bed in lowest position 7. Lock wheels on bed/wheelchair 8. Provide adequate lighting, including night light 9. Assess need for additional bedding, food/fluids, pain med's prior to sleep/routinely 10. Provide gripper slippers or personal non-skid footwear 11. Teach patient and patient jewelry sales representative to maintain environment for safety and engage in all aspects of fall prevention program 12. Remind patient to call for help before getting out of bed 13. Initiate bed/chair/exit alarms supportive devices as appropriate, (chair wedge, no-skid floor mat, raised edge mattress, hip protectors) 14. Locate patient bed assignment for optimal visualization 15. Evaluate and identify Safe Patient Handling Equipment needs 16. Provide supervision when out of bed or chair 17. Utilize gait belt as needed to assist with ambulation 18. Place adaptive equipment (cane, walker) within reach 19. Request patient jewelry sales representative bring adaptive equipment/mobility aids from home or obtain and provide as needed 20. Consult pharmacy regarding effects of med's affecting mobility, cognition, and alternatives 21. Obtain physician order for PT if risk factors associated with mobility are present 22. Obtain physician order for OT as appropriate 23. Utilize diversional activities 24. Educate patient and patient jewelry sales representative how to maintain a safe environment during visitation times (notify nurse prior to leaving bedside) 25. Consider appropriateness of medical or non-manager medical affairs 26. Set up voiding schedule as appropriate (every 2 hours) Outcome: Progressing Note: Evaluation of progress towards goal: Area free from hazards, patient call light within reach, will continue to monitor patient for risk of falls. [facility] 12-17-2024 Procedure note Images from the original note were not included. [facility] [place] [facility] Operative Note DATE OF PROCEDURE: 12/17/2024 PATIENT NAME: Isaura Ruiz SURGEON: Surgeons and Role: * Maldonado Prince MD - Primary ASSISTANTS: Dr. Milo Thomas, Vascular Surgery Fellow STAFF: Instructor Watch Assembly Primary: Carly Gamez RN Instructor Watch Assembly Relief: Evonne Guzman RN Scrub Relief: Vasquez Nayak [facility] Scrub Person: ST Yesica Fellow: Milo Thomas MD; Lion Almaraz DO Scrub Orientee: ST Dianelys PRE-OP DIAGNOSIS: Peripheral arterial disease, chronic limb threatening ischemia of right lower extremity, right ischemic foot wounds, hypertension, hyperlipidemia, tobacco abuse POST-OP DIAGNOSIS: same PROCEDURE: 1. Bilateral femoral cutdowns with bilateral iliofemoral endarterectomy with bovine patch angioplasty bilaterally 2. Left to right [id number]-[id number] bypass 3. Right lower extremity angiogram 4. Left retrograde iliac angiogram 5. Drug coated balloon angioplasty of left common and external iliac arteries ANESTHESIA: general EBL: 150 mL FLUIDS: 1500 ml crystalloid COMPLICATIONS: None. CONDITION: good WOUND CLASS: 1 ADDITIONS (Drains, Specimens, Implants): Drains: * No LDAs found * Specimens: * No specimens in log * Implants: Implant Name Type Inv. Item Serial No. Treating Engineer Lot No. LRB No. Used Action GRAFT CV 60CM 7MM THOR [address] [facility] [address] [facility] STR - [id number] - [id number] Graft GRAFT CV 60CM 7MM THOR [address] [facility] [address] [facility] STR [id number] Bilateral 1 Implanted PATCH VSC 8X.8CM XENOSURE BVN PRICRD TISS STRL RPL [id number] - [id number] Graft PATCH VSC 8X.8CM XENOSURE BVN PRICRD TISS STRL RPL [id number] [facility] [id number] Left 1 Implanted PATCH VSC 8X.8CM XENOSURE BVN PRICRD TISS STRL RPL [id number] - [id number] Graft PATCH VSC 8X.8CM XENOSURE BVN PRICRD TISS STRL RPL [id number] [facility] [id number] Left 1 Implanted PATCH VSC 8X.8CM XENOSURE BVN PRICRD TISS STRL RPL [id number] - [id number] Graft PATCH VSC 8X.8CM XENOSURE BVN PRICRD TISS STRL RPL [id number] [facility] [id number] Right 1 Implanted HISTORY: The patient is a 69-year-old female with known peripheral arterial disease right lower extremity chronic limb-threatening ischemia with known long segment iliac occlusion on the right.. Management options were discussed and patient elected to pursue left right femoral to femoral bypass with the other indicated procedures as necessary as well as possible on-table angiogram indicated procedures. CONSENT: The planned procedure was explained in detail including discussion of all associated risks/benefits. Alternative options were also discussed in depth. Risks including pain, bleeding/hematoma, SSI/abscess, damage to surrounding tissues, nerve injury, cardiopulmonary complications, renal complications, CVA, and were described. All questions and concerns were addressed and informed consent was obtained, witnessed, and placed in the chart. The decision was made to proceed with intervention as planned. PROCEDURE: Patient was taken to the operative suite and placed in the supine position. She was placed under general endotracheal anesthesia by the anesthesia team. Care was taken to pad all pressure points with foam. Right arm was left down and left arm tucked bilateral groins were clipped Acevedo was placed and then groins were prepped and draped in the usual fashion. Her entire right lower extremity was prepped as well into the field. And right foot was covered with sterile drape. A satisfactory time-out was performed confirming correct patient correct site and correct procedure. Perioperative antibiotics were assured. Bilateral femoral cutdowns were performed with longitudinal skin incisions. Incisions were created with sharp 10 blade scalpel. Subcutaneous tissues were carefully dissected with careful electrocautery. Bilateral inguinal ligaments were identified and dissected and then the femoral artery identified which was difficult because neither had a strong pulse. We then carried out sharp Metzenbaum scissor dissection to expose the entire length of common femoral artery bilaterally in addition to profunda femoral and superficial femoral artery bilaterally. Extension was carried out more proximally in the artery onto the external iliac under the inguinal ligament and large crossing circumflex veins were identified dissected and ligated bilaterally. Proximal and distal control was then obtained of the external iliac profunda femoral and superficial femoral arteries with control obtained with vessel loops on these arteries in addition to the circumflex arteries bilaterally. We then bolused heparin and allowed for 3 minutes of circulation to achieve anticoagulation. We then clamped proximally and distally and performed iliofemoral endarterectomy bilaterally using [place] elevator and obtaining good proximal and distal endpoints. In the right groin we utilized a bovine patch and were able to perform our patch angioplasty with 6 0 Prolene suture in a running standard fashion. onto the external iliac common femoral and superficial femoral artery. Flushing maneuvers were performed prior to completion of the patch. The patch was then completed. The left side required more extensive endarterectomy of the profunda in addition to the superficial femoral artery and so patch angioplasty was completed in a wire formation with a 2nd bovine patch. This was performed with running 6 0 Prolene suture and flushing maneuvers were performed prior to completion of the patch. We then created a tunnel lying anterior to the anterior abdominal fascia and passed a rifampin soaked 7 mm Dacron graft through this tunnel for a left to right femoral to femoral bypass. End-to-side anastomoses were created bilaterally and flushing maneuvers were performed bilaterally prior to completion of our anastomoses. The anastomoses were performed with running 6 0 Prolene sutures. We then accessed the left common femoral artery through the new patch with micropuncture and under direct fluoroscopy carefully advanced our micro wire into the abdominal aorta and exchanged for a micro catheter and stiff glidewire which was placed in the distal thoracic aorta. We then placed a 6 [place] sheath and performed retrograde iliac angiogram. Demonstrated that there was severe stenosis of the left external iliac artery with the 6 [place] sheath almost entirely occlusive but it did demonstrate excellent filling and flow through the femoral to femoral bypass. We then utilized a 6 mm by 200 mm impact drug coated balloon and allowed for 3 minutes of balloon angioplasty of the left common iliac and left external iliac arteries. Completion iliac angiogram performed retrograde demonstrated widely improve patency of the vessel. We did a right lower extremity angiogram from this left 6 [place] sheath and demonstrated that right common femoral right profunda femoral and right superficial femoral arteries were all patent with mild stenosis present. Popliteal artery in addition to tibioperoneal trunk were both patent with mild atherosclerotic disease present and right posterior tibial artery was widely patent down to the level of the foot. There was some small-vessel disease in the foot noted but nothing that could be intervened on at this time. Bilateral groins were then examined for hemostasis with 6 0 Prolene suture buttressing utilized where needed. We also used careful electrocautery. We also gave protamine anticoagulation reversal. Fibular hemostatic agent was used temporarily to assist with hemostasis. When we were assured that both groins had adequate hemostasis we utilized 2-0 Vicryl suture for the deep fascial layers stent 3-0 Vicryl suture for the subcutaneous fascial layers and deep dermal layers. We then closed bilateral groins with 4-0 Monocryl suture in a running subcuticular fashion. All sponge and instrument counts were correct at the end of the procedure. The patient tolerated the procedure well. They were awakened from anesthesia and transported to PACU in stable condition. Dr. Prince was present for the entire procedure. Cosigned by Maldonado Prince MD at 12/18/2024 6:43 PM EDT Associated attestation - Maldonado Prince MD - 12/18/2024 6:43 PM EDT I was present and performed all the critical portions of the procedure, performed structured guidance at appropriate times, and was always immediately available. Maldonado Prince MD, PRATIMA Vascular Surgery [facility] Work Phone: 12-17-2024 Procedure note Images from the original note were not included. [facility] [place] [facility] Brief Op Note NAME: Isaura Ruiz : 1955 PROCEDURE DATE: 12/17/2024 SURGEON: Surgeons and Role: * Maldonado Prince MD - Primary ASSISTANTS: Milo Thomas MD, Vascular Surgery Fellow (PGY-7) Lion Almaraz DO MA, Vascular Surgery Fellow (PGY-6) STAFF: Instructor Watch Assembly Primary: Carly Gamez RN Instructor Watch Assembly Relief: Evonne Guzman RN Scrub Relief: Vasquez Nayak 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) [I70.261] * Claudication (CMS-HCC) [I73.9] PROCEDURE DETAILS: Procedure(s): LEFT DCB ANGIOPLASTY COMMON & EXTERNAL ILIAC ARTERY (Left) - Wound Class: Clean BYPASS ARTERY LEFT-RIGHT FEMORAL (Bilateral) - Wound Class: Clean ANGIOGRAM RIGHT LEG/ LEFT ILIAC ANGIOGRAM (Right) - Wound Class: Clean BILATERAL FEMORAL CUTDOWNS/ BILATERAL FEMORAL ENDARTERECTOMY (Bilateral) - Wound Class: Clean BOVINE PATCH ANGIOPLASTY FEMORAL (Bilateral) - Wound Class: Clean ANESTHESIA TYPE: General Post-Op Diagnosis Codes: * 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 Item Serial No. Treating Engineer Lot No. LRB No. Used Action GRAFT CV 60CM 7MM THOR [address] [facility] [address] VLR CL STR - [id number] - [id number] Graft GRAFT CV 60CM 7MM THOR [address] [facility] [address] R [facility] STR [id number] Bilateral 1 Implanted PATCH VSC 8X.8CM XENOSURE BVN PRICRD TISS STRL RPL [id number] - [id number] Graft PATCH VSC 8X.8CM XENOSURE BVN PRICRD TISS STRL RPL [id number] [employer] [id number] Left 1 Implanted PATCH VSC 8X.8CM XENOSURE BVN PRICRD TISS STRL RPL [id number] - [id number] Graft PATCH VSC 8X.8CM XENOSURE BVN PRICRD TISS STRL RPL [id number] [employer] [id number] Left 1 Implanted PATCH VSC 8X.8CM XENOSURE BVN PRICRD TISS STRL RPL [id number] - [id number] Graft PATCH VSC 8X.8CM XENOSURE BVN PRICRD TISS STRL RPL [id number] [employer] [id number] Right 1 Implanted ESTIMATED BLOOD LOSS: 150 mL TOTAL IVF: Please see anesthesia documentation FLUORO TIME: 2.3 min DOSE: 71.6 mGy TOTAL CONTRAST: 39 ml CONDITION: stable WOUND CLASS: clean FINDINGS: PULSE EXAM: monophasic right posterior tibial artery on Doppler See dictated procedure report for full details. Lion Almaraz DO MA, Vascular Surgery Fellow (PGY-6) [place] Work Phone: 12-17-2024 Attending History and physical note HISTORY AND PHYSICAL INTERVAL NOTE: Isaura Ruiz 1955 [id number] H&P reviewed. The patient was examined and there are no changes to the H&P. Maldonado Prince MD Source Note - Maldonado Prince MD - 11/28/2024 10:30 AM EST Images from the original note were not included. To: SKYE BOWMAN MD HPI: Isaura Ruiz is a 69 y.o. female with right lower extremity multilevel occlusive disease. he also has left iliac occlusive disease. She has right lower extremity critical limb threatening ischemia with nonhealing wound and hyperemic foot. I discussed with her the PVR finding in the CTA. She is a smoker. Review of Systems: Review of Systems Constitutional: Negative. HENT: Negative. Respiratory: Negative. Cardiovascular: Negative. Gastrointestinal: Negative. Endocrine: Negative. Genitourinary: Negative. Musculoskeletal: Negative. Skin: Negative. Neurological: Negative. Hematological: Negative. Medications: Current Outpatient Medications on File Prior to Visit Medication Sig Dispense Refill aspirin 81 mg Take 1 tablet (81 mg total) by mouth in the morning. atorvastatin (LIPITOR) 40 mg tablet Take 1 tablet (40 mg total) by mouth in the morning. baclofen (LIORESAL) 10 mg tablet Take 1 tablet (10 mg total) by mouth 3 (three) times a day. cloNIDine (CATAPRES) 0.1 mg tablet Take 1 tablet (0.1 mg total) by mouth in the morning. clopidogreL (PLAVIX) 75 mg tablet Take 1 tablet (75 mg total) by mouth in the morning. gabapentin (NEURONTIN) 300 mg capsule Take 1 capsule (300 mg total) by mouth 3 (three) times a day. lisinopriL (PRINIVIL,ZESTRIL) 10 mg tablet Take 1 tablet (10 mg total) by mouth in the morning. zonisamide (ZONEGRAN) 50 mg capsule Take 2 capsules (100 mg total) by mouth in the morning. cilostazoL (PLETAL) 100 mg tablet take 1 tablet by mouth twice a day 180 tablet 1 No current facility-administered medications on file prior to visit. Past Medical History: No past medical history on file. Past Surgical History: No past surgical history on file. Social and Family History: Social History Socioeconomic History Marital status: Spouse name: Not on file Number of children: Not on file Years of education: Not on file Highest education level: Not on file Occupational History Not on file Tobacco Use Smoking status: Every Day Types: Cigarettes Smokeless tobacco: Never Vaping Use Vaping status: Never Used Substance and Sexual Activity Alcohol use: Defer Drug use: Never Sexual activity: Defer Other Topics Concern Not on file Social History Narrative Not on file Social Drivers of Health Financial Resource Strain: Not on file Food Insecurity: No Food Insecurity (11/28/2024) Hunger Screening Food Insecurity - Worry: Never True Food Insecurity - Inability: Never True Transportation Needs: Not on file Physical Activity: Not on file Stress: Not on file Social Connections: Not on file Interpersonal Safety: Not on file Housing Instability: Not on file No family history on file. Recent Labs: Recent and relative labs were reviewed and interpreted and contributed to the assessment and plan below. Vitals: BP 168/88 (BP Site: Right Arm, BP Postition: Sitting, BP CUFF SIZE: M (9-13 inches)) Pulse 73 Temp 36.3 C (97.4 F) (Temporal) Resp 16 Ht 165.1 cm (5' 5 ) Wt 74.8 kg (165 lb) SpO2 98% BMI 27.46 kg/m Body mass index is 27.46 kg/m . Physical Exam: Physical Exam Constitutional: Appearance: Normal appearance. HENT: Head: Normocephalic and atraumatic. Mouth/Throat: Mouth: Mucous membranes are moist. Eyes: Extraocular Movements: Extraocular movements intact. Pupils: Pupils are equal, round, and reactive to light. Cardiovascular: Rate and Rhythm: Normal rate and regular rhythm. Pulmonary: Effort: Pulmonary effort is normal. Breath sounds: Normal breath sounds. Abdominal: General: Abdomen is flat. Bowel sounds are normal. Palpations: Abdomen is soft. Musculoskeletal: General: Normal range of motion. Cervical back: Normal range of motion. Skin: General: Skin is warm and dry. Neurological: General: No focal deficit present. Mental Status: She is alert and oriented to person, place, and time. Mental status is at baseline. Psychiatric: Mood and Affect: Mood normal. Behavior: Behavior normal. Thought Content: Thought content normal. Judgment: Judgment normal. 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 She will need bilateral iliac stenting right lower extremity angiogram and intervention possible femorofemoral bypass. She will need cardiac risk stratification. Isaura was seen today for claudication. 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 While intending to generate a timely document that accurately reflects the content of the visit, no guarantee can be provided that every grammatical or spelling mistake has been or will be identified or corrected. Thank you for your understanding. [facility] 12-17-2024 History and physical note HISTORY AND PHYSICAL INTERVAL NOTE: Isaura Ruiz 1955 [id number] H&P reviewed. The patient was examined and there are no changes to the H&P. Maldonado Prince MD Source Note - Maldonado Prince MD - 11/28/2024 10:30 AM EST Images from the original note were not included. To: SKYE BOWMAN MD HPI: Isaura Ruiz is a 69 y.o. female with right lower extremity multilevel occlusive disease. he also has left iliac occlusive disease. She has right lower extremity critical limb threatening ischemia with nonhealing wound and hyperemic foot. I discussed with her the PVR finding in the CTA. She is a smoker. Review of Systems: Review of Systems Constitutional: Negative. HENT: Negative. Respiratory: Negative. Cardiovascular: Negative. Gastrointestinal: Negative. Endocrine: Negative. Genitourinary: Negative. Musculoskeletal: Negative. Skin: Negative. Neurological: Negative. Hematological: Negative. Medications: Current Outpatient Medications on File Prior to Visit Medication Sig Dispense Refill aspirin 81 mg Take 1 tablet (81 mg total) by mouth in the morning. atorvastatin (LIPITOR) 40 mg tablet Take 1 tablet (40 mg total) by mouth in the morning. baclofen (LIORESAL) 10 mg tablet Take 1 tablet (10 mg total) by mouth 3 (three) times a day. cloNIDine (CATAPRES) 0.1 mg tablet Take 1 tablet (0.1 mg total) by mouth in the morning. clopidogreL (PLAVIX) 75 mg tablet Take 1 tablet (75 mg total) by mouth in the morning. gabapentin (NEURONTIN) 300 mg capsule Take 1 capsule (300 mg total) by mouth 3 (three) times a day. lisinopriL (PRINIVIL,ZESTRIL) 10 mg tablet Take 1 tablet (10 mg total) by mouth in the morning. zonisamide (ZONEGRAN) 50 mg capsule Take 2 capsules (100 mg total) by mouth in the morning. cilostazoL (PLETAL) 100 mg tablet take 1 tablet by mouth twice a day 180 tablet 1 No current facility-administered medications on file prior to visit. Past Medical History: No past medical history on file. Past Surgical History: No past surgical history on file. Social and Family History: Social History Socioeconomic History Marital status: Spouse name: Not on file Number of children: Not on file Years of education: Not on file Highest education level: Not on file Occupational History Not on file Tobacco Use Smoking status: Every Day Types: Cigarettes Smokeless tobacco: Never Vaping Use Vaping status: Never Used Substance and Sexual Activity Alcohol use: Defer Drug use: Never Sexual activity: Defer Other Topics Concern Not on file Social History Narrative Not on file Social Drivers of Health Financial Resource Strain: Not on file Food Insecurity: No Food Insecurity (11/28/2024) Hunger Screening Food Insecurity - Worry: Never True Food Insecurity - Inability: Never True Transportation Needs: Not on file Physical Activity: Not on file Stress: Not on file Social Connections: Not on file Interpersonal Safety: Not on file Housing Instability: Not on file No family history on file. Recent Labs: Recent and relative labs were reviewed and interpreted and contributed to the assessment and plan below. Vitals: BP 168/88 (BP Site: Right Arm, BP Postition: Sitting, BP CUFF SIZE: M (9-13 inches)) Pulse 73 Temp 36.3 C (97.4 F) (Temporal) Resp 16 Ht 165.1 cm (5' 5 ) Wt 74.8 kg (165 lb) SpO2 98% BMI 27.46 kg/m Body mass index is 27.46 kg/m . Physical Exam: Physical Exam Constitutional: Appearance: Normal appearance. HENT: Head: Normocephalic and atraumatic. Mouth/Throat: Mouth: Mucous membranes are moist. Eyes: Extraocular Movements: Extraocular movements intact. Pupils: Pupils are equal, round, and reactive to light. Cardiovascular: Rate and Rhythm: Normal rate and regular rhythm. Pulmonary: Effort: Pulmonary effort is normal. Breath sounds: Normal breath sounds. Abdominal: General: Abdomen is flat. Bowel sounds are normal. Palpations: Abdomen is soft. Musculoskeletal: General: Normal range of motion. Cervical back: Normal range of motion. Skin: General: Skin is warm and dry. Neurological: General: No focal deficit present. Mental Status: She is alert and oriented to person, place, and time. Mental status is at baseline. Psychiatric: Mood and Affect: Mood normal. Behavior: Behavior normal. Thought Content: Thought content normal. Judgment: Judgment normal. 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 She will need bilateral iliac stenting right lower extremity angiogram and intervention possible femorofemoral bypass. She will need cardiac risk stratification. Isaura was seen today for claudication. 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) - [facility] - [place], [place] Maldonado Prince MD, PRATIMA, RPVI, FSVS, FACS [facility] This note was created with the assistance of a speech recognition program. While intending to generate a timely document that accurately reflects the content of the visit, no guarantee can be provided that every grammatical or spelling mistake has been or will be identified or corrected. Thank you for your understanding. documented in this encounter [facility] 12-16-2024 Nurse Note Anesthesia review: Angioplasty/Fem Bypass: TTH: GA. Hx of HTN: GERD. no c/p or SOb. EKG: STRESS 12/12/24. 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 female who presents for pre-op H&P for planned Angioplasty Iliac - Bilateral Bypass Artery Femoral Femoral(Psb) - Bilateral. She reports that she has had RIGHT foot pain since August. She has had a sore on the top of the foot for the last six weeks. She reports that the foot is red and anything she puts on it makes the foot more red and painful. She rates her pain as a 10 on a 0 to 10 scale. She has constant tingling. She reports that her pain interferes with sleep. She has difficulty with weight bearing. In a review of the record, she was last seen by Dr. Prince on 11/28/24. She had testing completed at [facility] that revealed severe claudication with probable iliac and superficial femoral artery disease. Allergies Allergen Reactions Contact Metal Agent Hives Patient states she has a metal allergy specifically nickel Nickel Hives Prior to Admission medications Medication Sig Start Date End Date Taking? Authorizing Provider aspirin 81 mg Take 1 tablet (81 mg total) by mouth in the morning. Not In System Ref Prov atorvastatin (LIPITOR) 40 mg tablet Take 1 tablet (40 mg total) by mouth in the morning. Not In System Ref Prov baclofen (LIORESAL) 10 mg tablet Take 1 tablet (10 mg total) by mouth 3 (three) times a day. 10/30/24 Not In System Ref Prov cilostazoL (PLETAL) 100 mg tablet take 1 tablet by mouth twice a day 11/04/23 Indu Cash MD cloNIDine (CATAPRES) 0.1 mg tablet Take 1 tablet (0.1 mg total) by mouth in the morning. Not In System Ref Prov clopidogreL (PLAVIX) 75 mg tablet Take 1 tablet (75 mg total) by mouth in the morning. Not In System Ref Prov gabapentin (NEURONTIN) 300 mg capsule Take 1 capsule (300 mg total) by mouth 3 (three) times a day. 11/18/24 Not In System Ref Prov lisinopriL (PRINIVIL,ZESTRIL) 10 mg tablet Take 1 tablet (10 mg total) by mouth in the morning. 11/24/24 Not In System Ref Prov zonisamide (ZONEGRAN) 50 mg capsule Take 2 capsules (100 mg total) by mouth in the morning. 11/13/24 Not In System Ref Prov History : Past Medical History: Diagnosis Date Anemia Dental disease full denture GERD (gastroesophageal reflux disease) Hyperlipidemia Hypertension Past Surgical History: Procedure Laterality Date BREAST LUMPECTOMY Left 1990 CHOLECYSTECTOMY 1991 TUBAL LIGATION 1985 Family History Problem Relation Age of Onset Cancer Mother Cancer Father Diabetes Sister Diabetes Maternal Grandmother Anesthesia problems Neg Hx Bleeding Disorder Neg Hx Clotting disorder Neg Hx Breast cancer Neg Hx Ovarian cancer Neg Hx Colon cancer Neg Hx Heart attack Neg Hx Stroke Neg Hx Social History Socioeconomic History Marital status: Spouse name: Not on file Number of children: Not on file Years of education: Not on file Highest education level: Not on file Occupational History Not on file Tobacco Use Smoking status: Every Day Average packs/day: 1 pack/day for 58.1 years (58.1 ttl pk-yrs) Types: Cigarettes Start date: 1966 Smokeless tobacco: Never Vaping Use Vaping status: Never Used Substance and Sexual Activity Alcohol use: Defer Drug use: Never Sexual activity: Defer Other Topics Concern Not on file Social History Narrative Lives alone in a one story home with three steps into the home. Tub/shower. Has a bench and a walker. No pets. Social Drivers of Health Financial Resource Strain: Not on file Food Insecurity: No Food Insecurity (12/12/2024) Hunger Screening Food Insecurity - Worry: Never True Food Insecurity - Inability: Never True Transportation Needs: Not on file Physical Activity: Not on file Stress: Not on file Social Connections: Not on file Interpersonal Safety: Not on file Housing Instability: Not on file Review of Systems Review of Systems Constitutional: Negative for fever, chills, diaphoresis, appetite change, fatigue and unexpected weight change. HENT: Positive for dental problem. Negative for congestion, ear discharge, ear pain, hearing loss, nosebleeds, rhinorrhea, sore throat, tinnitus and trouble swallowing. Eyes: Negative for pain, discharge and visual disturbance. Respiratory: Negative for cough, choking, shortness of breath and wheezing. Cardiovascular: Positive for leg swelling. Negative for chest pain, palpitations, PND and orthopnea. Gastrointestinal: Negative for nausea, vomiting, abdominal pain, diarrhea, constipation, blood in stool, anal bleeding, rectal pain and black tarry stool. Endocrine: Negative for polydipsia, polyphagia and polyuria. Genitourinary: Negative for dysuria, urgency, frequency, hematuria, decreased urine volume and enuresis. Musculoskeletal: Positive for gait problem (in a wheelchair). Negative for myalgias, joint swelling and arthralgias. Skin: Positive for wound. Negative for rash. Neurological: Positive for numbness. Negative for dizziness, seizures, syncope, speech difficulty, weakness, light-headedness and headaches. Hematological: Bruises/bleeds easily. Psychiatric/Behavioral: Positive for sleep disturbance. Negative for dysphoric mood and suicidal ideas. The patient is not nervous/anxious. Vital Signs BP 181/75 Pulse 78 Temp 36.2 C (97.2 F) Resp 20 Ht 165.1 cm (5' 5 ) Wt 74.4 kg (164 lb) SpO2 97% BMI 27.29 kg/m Labs/Diagnostics: Recent Results (from the past 24 hours) APTT Collection Time: 12/12/24 1:11 PM Result Value Ref Range aPTT 29 26 - 37 sec CBC auto differential Collection Time: 12/12/24 1:11 PM Result Value Ref Range White Blood Cells 9.4 4.0 - 11.0 X10E9/L RBC count 4.95 3.80 - 5.20 X10E12/L Hemoglobin 9.7 (L) 11.7 - 15.5 g/dL Hematocrit 30.2 (L) 35 - 47 % MCV 61 (L) 80 - 100 fL MCH 19.7 (L) 27 - 34 pg MCHC 32.2 32 - 36 g/dL RDW 16.6 (H) 11.5 - 15.0 % Platelets 364 150 - 450 X10E9/L MPV 9.0 7 - 12 fL Band 1.0 % Seg neutrophil 64.6 % Lymphocyte 26.7 % Monocytes 6.7 % Basophil 1.0 % Neutrophils Absolute (M) 6.2 1.5 - 6.6 X10E9/L Lymphocytes Absolute 2.5 1.0 - 3.5 X10E9/L Monocytes Absolute 0.6 0 - 0.9 X10E9/L Basophils Absolute 0.1 0.0 - 0.2 X10E9/L Polychromasia 1+ (A) NONE^NONE Ovalocytes 1+ (A) NONE^NONE Acanthocytes 1+ (A) NONE^NONE Basic Metabolic Panel Collection Time: 12/12/24 1:11 PM Result Value Ref Range Sodium 139 134 - 146 mmol/L Potassium, Bld 3.5 3.5 - 5.0 mmol/L Chloride 105 98 - 109 mmol/L CO2 23 22 - 32 mmol/L Anion gap 11 5 - 15 mmol/L BUN 16 5 - 27 mg/dL Creatinine 1.03 (H) 0.40 - 1.00 mg/dL Glucose 107 (H) 65 - 99 mg/dL Calcium 9.5 8.5 - 10.5 mg/dL eGFR (CKD-EPI)non-race dependent 60 >59 ml/min/1.73sq.m Protime-INR Collection Time: 12/12/24 1:11 PM Result Value Ref Range Protime 11.2 9.8 - 13.2 sec Inr 1.0 0.9 - 1.2 Nuc stress Lexiscan Result Date: 12/12/2024 Examination: SPECT Myocardial with Wall Motion and Ejection Fraction Analysis with Lexiscan. History:Preop. Abnormal EKG. Comparison: None Myocardial perfusion is evaluated at rest using 10mCi of Tc99m sestamibi for the resting study. Myocardial perfusion was subsequently enhanced using intravenous Lexiscan, monitored by cardiology. At peak effect, 30.8mCi Tc99m sestamibi for the stress study. Routine SPECT imaging was utilized for both the resting and Lexiscan enhanced scans. Findings: Review of the reconstructed tomographic images demonstrate a normal distribution of activity throughout the myocardium on both the Lexiscan enhanced exam as well as the resting study. There is no evidence of myocardial ischemia. Left Ventricle: Wall motion is assessed in three projections and is normal. The global ejection fraction of the left ventricle is calculated to be 70% and is within the normal range for our laboratory. IMPRESSION: 1. Normal Lexiscan enhanced sestamibi myocardial perfusion exam, without evidence of myocardial ischemia. 2. Normal left ventricle wall motion and ejection fraction. Finalized by Morales Barkley MD on 12/12/2024 10:17 AM Physical Exam Physical Exam Constitutional She is oriented to person, place, and time. She appears well-developed and well-nourished. HENT Head Normocephalic and atraumatic. Ears Right Ear: External ear normal. Left Ear: External ear normal. Nose Nose normal. Mouth/Throat Throat: Oropharynx: oropharynx clear and moist Able to visualize hard and soft palate Eyes: Conjunctivae and EOM are normal. Pupils are equal, round, and reactive to light. Right eye exhibits no discharge. Left eye exhibits no discharge. Neck Normal range of motion. Neck supple. Negative for thyromegaly. Cardiovascular: Normal rate and regular rhythm. No murmur heard. Pulses: intact distal pulses Heart Sounds: normal heart sounds. no JVDno friction rub Pulmonary/Chest: Effort normal and breath sounds normal. Abdominal: Bowel sounds are normal. She exhibits no distension and no mass. Soft. There is no abdominal tenderness. There is no rebound and no guarding. Musculoskeletal: General: Tenderness present. No edema. Cervical back: Normal range of motion and neck supple. Comments: Right foot with erythema. Pulses diminished. Skin lesions and excoriation noted dorsum of right foot. Gait not visualized; in wheelchair Neurological She is alert and oriented to person, place, and time. Skin: Skin is warm and dry. Psychiatric: She has a normal mood and affect. Her behavior is normal. Judgment and thought content normal. 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 Hypertension 3. Anemia (9.7/30.2; no previous to compare) 4. Abnormal renal function (bun 16; creatinine 1.03; GFR 60; no previous to compare. Plan Angioplasty Iliac - Bilateral Bypass Artery Femoral Femoral(Psb) - Bilateral 2. Follow anesthesia guidelines regarding medications. Await cardiac clearance from Dr. Ahn. 3. Primary care to follow 4. Primary care to follow HAIM Brown 12/12/24 [id number] documented in this encounter [facility] 12-12-2024 Instructions Candice Dowell RN - 12/12/2024 12:15 PM EST Your surgery/procedure is scheduled at [facility] on 12/17/2024 at 1030 am Arrival Time 830 am [facility] Address: [address] [place] [address]. [place] [address] [address] Parking [address] located on [facility]. Report to the Entrance B. Check in at the information desk the surgery. The waiting room located on the second floor. If you have any questions prior to surgery, please call Pre-Admission Clinic at [phone] between 7:30 am and 4:30 pm Monday through Monday. If you have questions the morning of surgery, please call the Pre-op Department at [phone]. Notify your SURGEON if you develop any illness such as a cold, cough, fever, sore throat, vomiting or are hospitalized between now and your surgery. Medication Instructions (Do not stop your medications without consulting the prescribing physician). Take the following medications the morning of surgery with a sip of water: medications per Dr Prince instructions Diabetic or Weight loss medications: HOLD n/a LAST DOSE n/a Take inhalers as prescribed the morning of surgery. Due to the risk associated with these medications. If these medications are not held per instruction below, your surgery is at an increased risk for cancellation. SGLT2 Medications- Hold 3 days prior to surgery: Jardiance, Empagliflozin, Farxiga, Dapagliflozin, Invokana, Canagliflozin, Trijardy, Synjardy GLP-1 Medications (Injection or Pill)- If taken daily hold day of surgery. If taken weekly, hold 1 week prior to surgery: Adlyxin, Byetta, Bydureon, Ozempic, Rybelsus,Trulicity, Victoza, Wegovy, Lixisenatide, Exenatide, Semaglutide, Dulaglutide, Liraglutide GIP/GLP-1(Injection or Pill)- If taken daily hold day of surgery. If taken weekly, hold 1 week prior to surgery: Mounjaro . Blood thinners: Please contact your prescribing physician regarding a stop/hold date for these medications. Medications such as Coumadin, Heparin, Aspirin, Plavix, Eliquis, Pradaxa Diabetics: If you take insulin, contact your prescribing doctor for instructions on how to manage this the night before and the morning of surgery. Non-steriodal Anti-Inflammatory Drugs (NSAIDS)- Hold 7 days prior to surgery unless otherwise directed by your surgeon. Vitamins/Herbal Products: You may continue to take your prescribed vitamins such as potassium, iron, vitamin B, vitamin C, or multivitamin unless specifically instructed by your surgeon to hold. STOP taking all herbal products/teas one week prior to your surgery. Marijuana: Stop marijuana 72 hours prior to surgery, stop CBD oil 48 hours prior to surgery. If you have been given bowel prep instructions by your surgeon, please call the surgeon's office with any questions about these instructions. What do I do the day of Surgery? Age 2 through adult - Stop all solids by midnight, You may have clear liquids up to 2 hours before surgery, unless otherwise instructed by your surgeon. Clear liquids are: water, sports drinks such as Gatorade or G2, or apple juice. You may NOT have: tube feedings, dairy products, alcoholic beverages, orange juice, or any liquids with solids or pulp in it. If applicable, shower again with CHG soap the morning of your surgery. If you received a green plastic bracelet, bring it with you the day of surgery and your nurse will put it on you. In order to help prevent infection post-operatively, you may be asked to use a CHG mouthwash when you arrive to the Pre-op area. Your nurse will provide instruction the morning of. What do I need to do to prepare for surgery? If you will be going home the same day as your surgery, arrange for an adult over [address] Riding in a bus or taxi by yourself is not permitted. You should not smoke or drink alcohol 24 hours before your surgery. Alcohol thins the blood and may cause bleeding problems during surgery. Smoking increases the risk of breathing problems after surgery. Do not use lotions, creams, powders, perfume, make up, cologne or after-shaves day of surgery. Remove ALL jewelry including wedding rings, body piercings (including dermal piercings ,hair extensions that contain metal, nail ukrainian, make-up, and contact lens. You may brush your teeth the morning of surgery, but do not swallow the water. Wear your dentures and partial plates to the hospital (no adhesive). Shower the night the before. If applicable, use the CHG (chlorhexidine gluconate) soap or wipes What should I bring to the hospital? If you received a green plastic bracelet, bring it with you the day of surgery and your nurse will put it on you. Eyeglass or contact lens case If you will be spending the night, please bring personal care items and leave them in the car until you are taken to your room after surgery. Leave ALL valuables at home. If any of these instructions conflict with those you received from the surgeon, please seek clarification from your surgeon's office. DEEP BREATHING EXERCISES This exercise helps promote good air exchange and helps to prevent pneumonia after surgery. Breathe in slowly and deeply through the nose. Hold your breath for a few seconds and then exhale slowly through the mouth. Repeat this three times and then cough.Coughing helps to clear your lungs. If you have had a surgery with an incision into your abdomen or chest, press gently against your incision with a pillow or a folded blanket when you cough. Please be aware - it may not be franklin to cough following some types of surgeries involving the eyes, ears, sinuses and throat. Always follow your doctor's instructions. LEG EXERCISE These exercises help promote good circulation and help to prevent blood clots after surgery. Point your toes to the ceiling and then point them to the wall. Do this slowly about 15-20 times. You may also move your feet in circles. Do the exercise that is most comfortable for you. If you have had surgery involving your shoulder or arm, we recommend you move your fingers. PRACTICING We ask that you begin practicing these exercises before your surgery. After surgery try to do both exercises at least every 2 hours during the day and early evening. SURGICAL SITE INFECTION PREVENTION What is a Surgical Site Infection? Infection can happen to the area of the body where surgery is done. This is called a surgical site infection (SSI). A SSI does not happen very often. Can SSIs be treated? Antibiotics are used to treat SSI. Some patients may need another surgery to treat the infection. The doctor will discuss treatment options with you. What are some of the things that hospitals are doing to prevent SSIs? Soap and water or alcohol hand rub are used before and after caring for each patient. Special soap is used to clean surgery workers hands and arms just before the surgery. Masks, gowns, gloves and hair covers are worn during the surgery to keep the area clean. Hair in the surgery area may be removed with clippers (not razors). A special soap that kills germs is used to clean the skin at the surgery site. Antibiotics may be given before the surgery starts. What can you do to prevent SSIs? Before surgery: You may be asked to shower or bathe with a special soap that kills germs the night before and the day of surgery. Use the soap as you were told. If you smoke, stop or cut down. Ask your doctor about ways to quit. Do not shave near where you will have surgery. Shaving can irritate the skin and make it easier to get and infection. After surgery: Be sure that the doctors and nurses clean their hands before and after touching you. Be sure your family and friends clean their hands before and after visiting you. Do not be afraid to remind them. * Care for your wound at home as told by your doctor or nurse * Call your doctor right away if you have fever, redness, increased pain, or drainage at the surgery site. Further questions? Contact the doctor, nurse or the Infection Prevention and Control department if you have any questions. PATIENT RIGHTS AND RESPONSIBILITIES As a patient at [facility], you have the right to: Receive medical care and be informed of who is taking care of you Be treated with dignity and respect Have a family member/jewelry sales representative of choice and your physician notified of your admission Receive information and actively participate in decisions about your care and treatment Refuse care, treatment and services Decide who may provide your support and speak for you Access alevism and spiritual services Participate in ethical issues and questions about your care Receive private and confidential care Have appropriate assessment and management of your pain Know guest visitation restrictions or limitations Have an advance directive Access protective services Consent or refuse to participate in research studies or production or recordings, films or other images Have resolution of your complaints Receive information of hospital charges and payment methods Patient/patient jewelry sales representative responsibilities are to: Provide information about health status to facilitate care, treatment and services Follow the treatment, plan, keep appointments and speak up when you do not understand the plan Respect the rights of other patients and healthcare personnel Follow organizational rules and regulations that support quality care and a safe environment Fulfill financial obligations as promptly as possible Bathing Before Surgery- Patients greater than 2 months of age You can help to lower your chance of infection at the site of your surgery by showering or bathing with a special soap called chlorhexidine gluconate (CHG). Germs live on your skin. This special soap will help lower the amount of germs so they do not get into your surgery site. Special points to know: Do not use this soap if you know that you are allergic to CHG. Shower or bathe with CHG the night before and the morning of surgery. Do not shave the area of your body where the surgery will be done within 7 days of surgery. The CHG may make your skin a little dry, but do not use lotion. Steps for Bathing: Wash your hair as usual with your normal shampoo. Rinse your hair and body well after you shampoo to get rid all of the shampoo. Wash gently with the CHG from the neck down, but do not scrub the skin to hard. Be sure to wash the area of your surgery very well. If showering, turn the water off while washing and then turn the water back onto rinse. Do not get CHG in the genital (private) area. Do not get CHG in the eyes, ears, nose or mouth. (If the soap gets into the eyes, flush them immediately with water). Do not wash with regular soap after CHG is used. Pat skin dry with a soft, clean towel. Patient should sleep in freshly laundered night clothes and report for surgery in clean clothes. 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 She will need bilateral iliac stenting right lower extremity angiogram and intervention possible femorofemoral bypass. She will need cardiac risk stratification. 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 She will need bilateral iliac stenting right lower extremity angiogram and intervention possible femorofemoral bypass. She will need cardiac risk stratification. documented in this encounter [facility] 11-28-2024 History of Presen t illness Narrative Images from the original note were not included. To: SKYE BOWMAN MD HPI: Isaura Ruiz is a 69 y.o. female with right lower extremity multilevel occlusive disease. he also has left iliac occlusive disease. She has right lower extremity critical limb threatening ischemia with nonhealing wound and hyperemic foot. I discussed with her the PVR finding in the CTA. She is a smoker. Review of Systems: Review of Systems Constitutional: Negative. HENT: Negative. Respiratory: Negative. Cardiovascular: Negative. Gastrointestinal: Negative. Endocrine: Negative. Genitourinary: Negative. Musculoskeletal: Negative. Skin: Negative. Neurological: Negative. Hematological: Negative. Medications: Current Outpatient Medications on File Prior to Visit Medication Sig Dispense Refill aspirin 81 mg Take 1 tablet (81 mg total) by mouth in the morning. atorvastatin (LIPITOR) 40 mg tablet Take 1 tablet (40 mg total) by mouth in the morning. baclofen (LIORESAL) 10 mg tablet Take 1 tablet (10 mg total) by mouth 3 (three) times a day. cloNIDine (CATAPRES) 0.1 mg tablet Take 1 tablet (0.1 mg total) by mouth in the morning. clopidogreL (PLAVIX) 75 mg tablet Take 1 tablet (75 mg total) by mouth in the morning. gabapentin (NEURONTIN) 300 mg capsule Take 1 capsule (300 mg total) by mouth 3 (three) times a day. lisinopriL (PRINIVIL,ZESTRIL) 10 mg tablet Take 1 tablet (10 mg total) by mouth in the morning. zonisamide (ZONEGRAN) 50 mg capsule Take 2 capsules (100 mg total) by mouth in the morning. cilostazoL (PLETAL) 100 mg tablet take 1 tablet by mouth twice a day 180 tablet 1 No current facility-administered medications on file prior to visit. Past Medical History: No past medical history on file. Past Surgical History: No past surgical history on file. Social and Family History: Social History Socioeconomic History Marital status: Spouse name: Not on file Number of children: Not on file Years of education: Not on file Highest education level: Not on file Occupational History Not on file Tobacco Use Smoking status: Every Day Types: Cigarettes Smokeless tobacco: Never Vaping Use Vaping status: Never Used Substance and Sexual Activity Alcohol use: Defer Drug use: Never Sexual activity: Defer Other Topics Concern Not on file Social History Narrative Not on file Social Drivers of Health Financial Resource Strain: Not on file Food Insecurity: No Food Insecurity (11/28/2024) Hunger Screening Food Insecurity - Worry: Never True Food Insecurity - Inability: Never True Transportation Needs: Not on file Physical Activity: Not on file Stress: Not on file Social Connections: Not on file Interpersonal Safety: Not on file Housing Instability: Not on file No family history on file. Recent Labs: Recent and relative labs were reviewed and interpreted and contributed to the assessment and plan below. Vitals: BP 168/88 (BP Site: Right Arm, BP Postition: Sitting, BP CUFF SIZE: M (9-13 inches)) Pulse 73 Temp 36.3 C (97.4 F) (Temporal) Resp 16 Ht 165.1 cm (5' 5 ) Wt 74.8 kg (165 lb) SpO2 98% BMI 27.46 kg/m Body mass index is 27.46 kg/m . Physical Exam: Physical Exam Constitutional: Appearance: Normal appearance. HENT: Head: Normocephalic and atraumatic. Mouth/Throat: Mouth: Mucous membranes are moist. Eyes: Extraocular Movements: Extraocular movements intact. Pupils: Pupils are equal, round, and reactive to light. Cardiovascular: Rate and Rhythm: Normal rate and regular rhythm. Pulmonary: Effort: Pulmonary effort is normal. Breath sounds: Normal breath sounds. Abdominal: General: Abdomen is flat. Bowel sounds are normal. Palpations: Abdomen is soft. Musculoskeletal: General: Normal range of motion. Cervical back: Normal range of motion. Skin: General: Skin is warm and dry. Neurological: General: No focal deficit present. Mental Status: She is alert and oriented to person, place, and time. Mental status is at baseline. Psychiatric: Mood and Affect: Mood normal. Behavior: Behavior normal. Thought Content: Thought content normal. Judgment: Judgment normal. 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 She will need bilateral iliac stenting right lower extremity angiogram and intervention possible femorofemoral bypass. She will need cardiac risk stratification. Isaura was seen today for claudication. 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 While intending to generate a timely document that accurately reflects the content of the visit, no guarantee can be provided that every grammatical or spelling mistake has been or will be identified or corrected. Thank you for your understanding. documented in this encounter [facility] 11-28-2024 Instructions Maldonado Prince MD - 11/28/2024 10:30 AM EST Are You Ready To Kick The Habit? Free Tobacco Cessation Resources [facility] Services [facility] Tobacco [facility] Centers provide all employees with free tobacco cessation services that include: Counseling to understand nicotine addiction Education about medications that can help you successfully quit Assistance with developing a plan to quit Call to set up an individual appointment or find out when group classes will be held: [facility]: [phone] [facility]: [phone] [facility]: [phone] [facility]: [phone] Quit Smoking Action Plan and Resources [facility] offers an eight-week, online smoking cessation plan to all [facility] employees, regardless of whether [employer] is your medical insurance provider. Go to [email or web address].[email or web address]/employeewell ness and click the Health Risk Assessment and Resources link to get started. In the [employer] menu, click Action Plans instead of Health Risk Assessment to access the Quit Smoking Action Plan. Additional smoking cessation resources are also available to all [facility] employees on the [employer] web page at [email or web address].9SLIDES/quit smoking. [employer] Tobacco Cessation Program If [employer] is your medical insurance provider, there are more free resources available to you, including: No copays or deductibles on local tobacco cessation counseling services to help you quit Prescription assistance for tobacco cessation medications to help you quit For details about the tobacco cessation program available to [employer] members, go to www.Bauzaar.9SLIDES (Search: Tobacco Cessation Program). [place] Tobacco Quit Line 7-444-DKIS-NOW ( ) is a toll-free, telephonic service that helps [place] residents quit smoking and using tobacco. It is staffed by experts who tailor a quit plan for you and provide you with advice. [place] Tobacco Quit Line 2-319-YPMN-NOW ( ) is a toll-free, telephonic service that helps [place] residents quit smoking and using tobacco. It is staffed by experts who tailor a quit plan for you and provide you with advice. Two weeks of nicotine replacement therapy may be provided at no charge, if needed. Additional Resources These national organizations also offer free information and resources to help you quit tobacco: [place] [employer]--www.cancer.org/healthy/ stayawayfromtobacco [place] [employer]--www.heart.org (Search: Quit Smoking) Centers for Disease Control and Prevention--www.cdc.gov/tobacco [place] [employer]--www.lungusa.org documented in this encounter [employer] [facility] 09-07-2021 Evaluation note Encounter Date Diagnosis Assessment [...] Patient care instructions given in writting by [facility] Care At Home document [employer] Other Evaluation note* Diagnosis Onset Date Resolution Status Contact dermatitis noneactiv e [facility] Work Phone: Evaluation note* Diagnosis PVD (peripheral vascular disease) ([facility]) Unspecified peripheral vascular disease Claudication ([facility]) Unspecified peripheral vascular disease Bilateral carotid bruits 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)- Primary Claudication (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)- Primary Claudication (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) Claudication (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) Claudication (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)- Primary Claudication (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) Critical limb ischemia of both lower extremities (CMS-HCC) documented [facility] N[facility] - Reported* Type Description Date Medical History thalassemia minor [facility] Professional [employer] Other Hospital Discharge instructionsNot on filedocumented in this encounterPro[facility] SystemInstructionsNot on filedocumented in this encounterPro[facility] SystemReason for referral (narrative)* Misc (Routine) - Authorized Specialty Diagnoses / Procedures Referred By Contac t Referred To Contact Procedures Wound care (specify) Channing Frazier APRN-CNP [address] [place] [address] Phone: tel: fax: Referral ID Status Reason Start Date Expiration Date V isits Requested Visits Authorized [id number] Authorized 12/19/2024 12/19/2025 1 1 * Misc (Routine) - Authorized Specialty Diagnoses / Procedures Referred By Contac t Referred To Contact Procedures Hygiene Channing Frazier APRN-CNP [address] [place] [address] Phone: tel: fax: Referral ID Status Reason Start Date Expiration Date V isits Requested Visits Authorized [id number] Authorized 12/19/2024 12/19/2025 1 1 * Misc (Routine) - Authorized Specialty Diagnoses / Procedures Referred By Contac t Referred To Contact Procedures Adult diet Channing Frazier APRN-CNP [address] [place] [address] Phone: tel: fax: Referral ID Status Reason Start Date Expiration Date V isits Requested Visits Authorized [id number] Authorized 12/19/2024 12/19/2025 1 1 [facility] N[facility]ative* Auth/Cert Specialty Diagnoses / Procedures Referred By Willis canseco Referred To Contact Diagnoses 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) [I73.9] Procedures SD REVASCULARIZATION ILIAC ARTERY ANGIOP 1ST VSL ANGIOPLASTY ILIAC BYPASS ARTERY FEMORAL FEMORAL Maldonado Prince MD [address], [place] [address] Phone: tel: fax: Referral ID Status Reason Start Date Expiration Date Visits Re quested Visits Authorized [id number] 1 1 [facility] Summary Purpose Family History No Family History Records FoundNo Family History Records FoundNo Family History Records FoundNo Family History Records FoundNo Family History Records FoundNo Family History Records Found Advance Directives No Advanced Directives Records Found Advance Directive Response Recorded Date/ Time Advance Directives No June 1:13pm Date Activated Date Inactivated Comments 12/17/2024 2:52 PM Chief Complaint and Reason for Visit Chief Complaint swelling/itching carrie und eyes Reason for Visit Contact dermatitis Additional Source Comments INFORMATION SOURCE (unrecogn ized section and content) DATE CREATED AUTHOR 03/30/2018 [facility] DATE CREATED AUTHOR AUTHOR'S ORGANIZ ATION 07/18/2022 [facility] DATE CREATED AUTHOR AUTHOR'S ORGANIZ ATION 11/24/2024 [facility] DATE CREATED AUTHOR AUTHOR'S ORGANIZ ATION 12/03/2024 [facility] DATE CREATED AUTHOR AUTHOR'S ORGANIZ ATION 12/19/[address] [facility] DATE CREATED AUTHOR AUTHOR'S ORGANIZ ATION 12/20/2024 [facility] REASON FOR VISIT (unrecogniz ed section and content) Reason Comments Med Refill Reason Comments Claudication Previous Dr. Shreya beckwith (07/2022) Specialty Diagnoses / Procedures Referred By Willis canseco Referred To Contact Vascular Surgery Diagnoses Claudication ([facility]) Skye Bowman MD [address] [place] [address] Phone: tel: fax: [facility] [address] [place] [address] Phone: tel: fax: Referral ID Status Reason Start Date Expiration Date Visits Requested Visits Authorized [id number] Pending Review Specialty Services Required 10/21/2024 10/21/2025 1 1 Care Teams (unrecognized sec tion and content) Team Status: Active Member Role Status Dates Skye Bowman MD Primary Care Provider Active Team Status: Inactive Member Role Status Dates Skye Bowman MD Primary Care Provider Active Start: July 08, 2024 End: July 08, 2024 Tsering Pineda APRN Attending Provider Active S tart: July 08, 2024 End: July 08, 2024 Orthotist Relationship Specialty Start Date End Date Skye Bowman MD [address] [id number] PCP - General Family Medicine 06/30/22 Orthotist Relationship Specialty Start Date End Date Skye Bowman MD PCP - General Family Medicine 06/30/22 Orthotist Relationship Specialty Start Date End Date Skye Bowman MD PCP - General Family Medicine 06/30/22 Orthotist Relationship Specialty Start Date End Date Skye Bowman MD PCP - General Family Medicine 06/30/22 Goals (unrecognized section and content) Goals may be documented in a n alternate section Scheduled Active and Recently Administ ered Medications (unrecognized section and content) Medication Order 12/17/2024 12/18/2024 12/19/2024 acetaminophen (TYLENOL EXTRA STRENGTH) tablet 1,000 mg 1,000 mg, oral, 4 times daily, First dose on Mon12/17/24 at 1900, For 72 hours 2147 (Not Given - Provider: Betty Horner RN - Reason: Patient/family refused) 0051 (Given - Provider: Betty Horner RN)0600 (Given - Provider: Betty Horner RN)1300 (Not Given - Provider: Tona South RN - Reason: Patient/family refused)1953 (Given - Provider: Betty Horner RN) 0142 (Given - Provider: Betty Horner RN)0623 (Given - Provider: Betty Horner RN)1340 (Given - Provider: Tavia Zuniga RN)1900 (Due) aspirin EC tablet 81 mg 81 mg, oral, Daily, First dose on Mon12/17/24 at 1500, Do not crush or chew. 1500 (Canceled Entry - Provider: Betty Horner RN) 0900 (Not Given - Provider: Tona South RN - Reason: Other - Comment: duplicate order) 0900 (Not Given - Provider: Tavia Zuniga RN - Reason: Other - Comment: duplicate order) aspirin EC tablet 81 mg (CANCELED) 81 mg, oral, Daily, First dose on Mon12/17/24 at 1545, Do not crush or chew. 1557 (Given - Provider: Flores Mix RN) 0915 (Given - Provider: Tona South RN) 0849 (Given - Provider: Tavia Zuniga, DEVAN) atorvastatin (LIPITOR) tablet 40 mg 40 mg, oral, Daily, First dose on Mon12/18/24 at 0900, Look-alike/sound-alike medication - verify indication for use. 0915 (Given - Provider: Tona South RN) 0849 (Given - Provider: Tavia Zuniga RN) baclofen (LIORESAL) tablet 10 mg 10 mg, oral, 3 times daily, First dose on Mon12/17/24 at 1500 1500 (Canceled Entry - Provider: Betty Horner RN)2146 (Given - Provider: Betty Horner RN) 0559 (Given - Provider: Betty Horner RN)1429 (Given - Provider: Tona South RN)2100 (Given - Provider: Betty Horner RN) 0549 (Given - Provider: Betty Horner RN)1342 (Given - Provider: Tavia Zuniga RN)2200 (Due) cilostazoL (PLETAL) tablet 100 mg 100 mg, oral, 2 times daily, First dose on Mon12/17/24 at 2100, Give 30 minutes before or 2 hours after meals. 2147 (Given - Provider: Betty Horner RN) 0915 (Given - Provider: Tona South RN)2100 (Given - Provider: Betty Horner RN) 0849 (Given - Provider: Tavia Zuniga RN)2100 (Due) cloNIDine (CATAPRES) tablet 0.1 mg 0.1 mg, oral, Daily, First dose on Mon12/18/24 at 0900, Look-alike/sound-alike medication - verify indication for use. Avoid rapid discontinuation. 0915 (Given - Provider: Tona South RN) 0849 (Given - Provider: Tavia Zuniga RN) clopidogreL (PLAVIX) tablet 300 mg (COMPLETED) 300 mg, oral, Once, On Mon12/17/24 at 1515, For 1 dose, Look-alike/sound-alike medication - verify indication for use. 1515 (Given - Provider: Radha Bejarano RN) clopidogreL (PLAVIX) tablet 75 mg 75 mg, oral, Daily, First dose on Mon12/17/24 at 1500, Look-alike/sound-alike medication - verify indication for use. 1500 (Canceled Entry - Provider: Betty Horner RN) 0915 (Given - Provider: Tona South RN) 0849 (Given - Provider: Tavia Zuniga RN) gabapentin (NEURONTIN) capsule 300 mg 300 mg, oral, 3 times daily, First dose on Mon12/17/24 at 1500, Look-alike/sound-alike medication - verify indication for use. 1500 (Canceled Entry - Provider: Betty Horner RN)2146 (Given - Provider: Betty Horner RN) 0601 (Given - Provider: Betty Horner RN)1429 (Given - Provider: Tona South RN)2100 (Given - Provider: Betty Horner RN) 0549 (Given - Provider: Betty Horner RN)1342 (Given - Provider: Tavia Zuniga RN)2200 (Due) heparin (porcine) injection 5,000 Units 5,000 Units, subcutaneous, Every 8 hours scheduled, First dose on Mon12/17/24 at 1500, Look-alike/sound-alike medication - verify indication for use. Observe for bleeding. 1500 (Canceled Entry - Provider: Betty Horner RN)2146 (Given - Provider: Betty Horner RN) 0559 (Given - Provider: Betty Horner RN)1429 (Given - Provider: Tona South RN)2100 (Given - Provider: Betty Horner RN) 0549 (Given - Provider: Betty Horner RN)1400 (Not Given - Provider: Tavia Zuniga RN - Reason: Medication not available)2200 (Due) lactated ringers bolus (COMPLETED) 500 mL, intravenous, at 500 mL/hr, Administer over 1 Hours, Once, On Mon12/18/24 at 1530, For 1 dose 1646 (New Bag - Provider: Tona South RN)1646 (Rate/Dose Change - Provider: Tona South RN)1746 (Stop Bag - Provider: Betty Horner RN) lisinopriL (PRINIVIL,ZESTRIL) tablet 10 mg 10 mg, oral, Daily, First dose on Mon12/18/24 at 0900, Look-alike/sound-alike medication - verify indication for use. 0915 (Given - Provider: Tona South RN) 0849 (Given - Provider: Tavia Zuniga RN) methocarbamoL (ROBAXIN) tablet 750 mg 750 mg, oral, 3 times daily, First dose on Mon12/17/24 at 1500, For 3 days 1500 (Not Given - Provider: Flores Mix RN - Reason: Patient/family refused)2145 (Given - Provider: Betty Horner RN) 0558 (Given - Provider: Betty Horner RN)1428 (Given - Provider: Tona South RN)2100 (Given - Provider: Betty Horner RN) 0549 (Given - Provider: Betty Horner RN)1341 (Given - Provider: Tavia Zuniga, RN)2200 (Due) zonisamide (ZONEGRAN) capsule 100 mg 100 mg, oral, Daily, First dose on Mon12/17/24 at 1500, Look-alike/sound-alike medication - verify indication for use. Swallow whole, do not crush or chew. 2147 (Given - Provider: Betty Horner RN) 0915 (Given - Provider: Tona South RN) 0850 (Given - Provider: Tavia Zuniga, DEVAN) Continuous Medication Order 12/17/2024 12/18/2024 12/19/2024 lactated ringers infusion (CANCELED) 50 mL/hr, intravenous, Continuous, Starting on Mon12/17/24 at 0945, For 1 day, Pre-op, If fluid restriction is not indicated, infuse at a rate up to 5 mL/kg/hr not to exceed the total replacement volume (2 ml/kg/hr) from the time NPO status was initiated. 1057 (New Bag - Provider: MARILYN Hanna)1207 (Anesthesia Volume Adjustment - Provider: MARILYN Hanna)1233 (Anesthesia Volume Adjustment - Provider: MARILYN Hanna)1441 (Stop Bag - Provider: MARILYN Hanna) PRN Medication Order 12/17/2024 12/18/2024 12/19/2024 calcium gluconate 2,000 mg in sodium chloride 0.9 % 100 mL IVPB(Linked Group 1) 2,000 mg, intravenous, at 120 mL/hr, Administer over 60 Minutes, As needed, for ionized calcium level 3 to 3.4 mg/dL, Starting on Mon12/17/24 at 1450, Recheck ionized calcium 6 hours after infusion. Hold calcium replacement for phosphorus greater than 5.5 mg/dL. VESICANT (RED) calcium gluconate 3,000 mg in sodium chloride 0.9 % 100 mL IVPB(Linked Group 1) 3,000 mg, intravenous, at 130 mL/hr, Administer over 60 Minutes, As needed, for ionized calcium level less than 3 mg/dL, Starting on Mon12/17/24 at 1450, CALL PHYSICIAN if this dose is administered. Recheck ionized calcium 6 hours after infusion. Hold calcium replacement for phosphorus greater than 5.5 mg/dL. VESICANT (RED) calcium gluconate IVPB 1000 mg/50 mL (20 mg/mL premix)(Linked Group 1) 1,000 mg, intravenous, at 50 mL/hr, Administer over 60 Minutes, As needed, for ionized calcium level 3.5 to 4.4 mg/dL, Starting on Mon12/17/24 at 1450, Recheck ionized calcium 6 hours after infusion. Hold calcium replacement for phosphorus greater than 5.5 mg/dL. VESICANT (RED) dextrose (GLUTOSE) 40 % gel 15 g 15 g, oral, As needed, low blood sugar, blood glucose less than 70 mg/dL, Starting on Mon12/17/24 at 1450, If patient conscious and taking PO. If blood glucose is not greater than 70 mg/dL after initial treatment, repeat treatment. dextrose 50 % in water (D50W) 50% solution 25 mL 25 mL, intravenous, As needed, low blood sugar, blood glucose less than 70 mg/dL and unconscious or NPO with IV access, Starting on Mon12/17/24 at 1450, Push over 1-3 minutes STAT. If conscious and not NPO, immediately follow with meal tray or high protein (7 grams) snack if tray not available. If NPO, initiate 5% dextrose in water at 100 mL/hr and contact prescriber for additional orders. If blood glucose is not greater than 70 mg/dL after initial treatment, repeat treatment. VESICANT (RED) Warning: HYPERTONIC solution. glucagon HCL injection 1 mg 1 mg, intramuscular, As needed, low blood sugar, blood glucose less than 70 mg/dL and unconscious or NPO without IV access., Starting on Mon12/17/24 at 1450, If conscious and not NPO, immediately follow with meal tray or high protein (7Grams) snack if tray not available. If NPO, initiate IV 5% Dextrose/Water at 100 mL/hr and contact prescriber for additional orders. If blood glucose is not greater than 70 mg/dL after initial treatment, repeat treatment. heparin (porcine) 2,500 Units in sodium chloride 0.9 % 250 mL irrigation (CANCELED) Continuous PRN, Starting on Mon12/17/24 at 1152, Intra-op 1152 (New Bag - Provider: Maldonado Prince MD - Comment: hung with power injecter) heparin 10,000 units in 0.9% sod chl 1000 mL irrigation (bag) (CANCELED) As needed, Starting on Mon12/17/24 at 1120, Intra-op 1120 (Given - Provider: Maldonado Prince MD - Comment: sterile back table) iodixanoL (VISIPAQUE) 320 mg iodine/mL injection (CANCELED) As needed, Starting on Mon12/17/24 at 1356, Intra-op 1356 (Given - Provider: Maldonado Prince MD) magnesium sulfate IVPB 2000 mg/50 mL in iso-osmotic water (40 mg/mL premix)(Linked Group 2) 2,000 mg, intravenous, at 25 mL/hr, Administer over 120 Minutes, As needed, for magnesium level 1.7 to 1.9 mg/dL or ionized magnesium level 0.45 to 0.5 mmol/L, Starting on Mon12/17/24 at 1450, Use premix solution. Default to ionized magnesium level in cases where patient has both magnesium and ionized magnesium results. If administered, check ionized magnesium (or total magnesium if ionized magnesium unavailable) level 4 hours after infusion. 0620 (New Bag - Provider: Betty Horner RN)0820 (Stop Bag - Provider: Tavia Zuniga, DEVAN) magnesium sulfate IVPB 4000 mg/100 mL in iso-osmotic water (40 mg/mL premix)(Linked Group 2) 4,000 mg, intravenous, at 25 mL/hr, Administer over 240 Minutes, As needed, for magnesium level 1.6 mg/mL or less, or ionized magnesium level 0.44 mmol/L or less, Starting on Mon12/17/24 at 1450, Use premix solution. Default to ionized magnesium level in cases where patient has both magnesium and ionized magnesium results. If administered, check ionized magnesium (or total magnesium if ionized magnesium unavailable) level 4 hours after infusion. 0620 (See Alternativ e - Provider: Betty Horner RN)0820 (See Alternative - Provider: Tavia Zuniga RN) midazolam (PF) (VERSED) injection 2 mg (CANCELED) 2 mg, intravenous, As needed, anxiety, Starting on Mon12/17/24 at 0931, For 2 doses, Pre-op, May repeat in 10 minutes, if needed, if original midazolam (VERSED) ineffective, Indication: Other, Indication: anxiety 1008 (Given - Provider: Radha Bejarano RN) ondansetron (PF) (ZOFRAN) injection 4 mg(Linked Group 3) 4 mg, intravenous, Every 8 hours PRN, nausea, vomiting, Starting on Mon12/17/24 at 1455, Administer over 2-5 minutes. ondansetron ODT (ZOFRAN ODT) disintegrating tablet 8 mg(Linked Group 3) 8 mg, oral, Every 8 hours PRN, nausea, vomiting, Starting on Mon12/17/24 at 1455 oxyCODONE (ROXICODONE) immediate release tablet 10 mg (CANCELED)(Linked Group 4) 10 mg, oral, Every 4 hours PRN, severe pain - pain scale 7-10, Starting on Mon12/17/24 at 1444, PACU (only), Look-alike/sound-alike medication - verify indication for use. Immediate release. 1755 (Given - Provider: Flores Mix RN) oxyCODONE (ROXICODONE) immediate release tablet 10 mg(Linked Group 5) 10 mg, oral, Every 4 hours PRN, severe pain - pain scale 7-10, Starting on Mon12/17/24 at 1455, For 3 days, Look-alike/sound-alike medication - verify indication for use. Immediate release. 0142 (Given - Provid er: Betty Horner RN)0623 (See Alternative - Provider: Betty Horner RN) oxyCODONE (ROXICODONE) immediate release tablet 5 mg(Linked Group 5) 5 mg, oral, Every 4 hours PRN, moderate pain - pain scale 4-6, Starting on Mon12/17/24 at 1455, For 3 days, Look-alike/sound-alike medication - verify indication for use. Immediate release. 0142 (See Alternativ e - Provider: Betty Horner RN)0623 (Given - Provider: Betty Horner RN) potassium chloride (K-TAB,KLOR-CON) CR tablet 20-50 mEq(Linked Group 6) 20-50 mEq, oral, As needed, for potassium replacement, Starting on Mon12/17/24 at 1450, Progress to oral potassium replacement when patient tolerating oral intake. If dose administered, recheck potassium level 4 hours after last dose. For potassium level 3.4 to 3.8 mmol/L and Serum Creatinine 1.2 or less=30 mEq. For potassium level 3.1 to 3.3 mmol/L and Serum Creatinine 1.2 or less=40 mEq. For potassium level 3 mmol/L or less and Serum Creatinine 1.2 or less=50 mEq. For potassium level 3.4 to 3.8 mmol/L and Serum Creatinine greater than 1.2=20 mEq. For potassium level 3.1 to 3.3 mmol/L and Serum Creatinine greater than 1.2=30 mEq. For potassium level 3 mmol/L or less and Serum Creatinine greater than 1.2=40 mEq. Do not crush or chew. 0621 (See Alternativ e - Provider: Betty Horner RN) potassium chloride (KAYCIEL) 20 mEq/15 mL solution 20-50 mEq(Linked Group 6) 20-50 mEq, oral, As needed, potassium replacement, Starting on Mon12/17/24 at 1450, Progress to oral potassium replacement when patient tolerating oral intake. If dose administered, recheck potassium level 4 hours after last dose. For potassium level 3.4 to 3.8 mmol/L and Serum Creatinine 1.2 or less=30 mEq (22.5mL). For potassium level 3.1 to 3.3 mmol/L and Serum Creatinine 1.2 or less=40 mEq (30mL). For potassium level 3 mmol/L or less and Serum Creatinine 1.2 or less=50 mEq (37.5mL). For potassium level 3.4 to 3.8 mmol/L and Serum Creatinine greater than 1.2=20 mEq (15mL). For potassium level 3.1 to 3.3 mmol/L and Serum Creatinine greater than 1.2=30 mEq (22.5mL). For potassium level 3 mmol/L or less and Serum Creatinine greater than 1.2=40 mEq (30mL). Must dilute before use - Mix in 3-8 ounces of water or juice before administration When administering in feeding tube, flush before and after per policy and monitor potassium levels 0621 (Given - Provid er: Betty Horner RN) potassium chloride IVPB 10 mEq/100 mL in water (0.1 mEq/mL premix)(Linked Group 7) 10 mEq, intravenous, at 100 mL/hr, Administer over 60 Minutes, As needed, for potassium replacement, Starting on Mon12/17/24 at 1450, Administer Potassium Chloride IVPB in 10 mEq increments. Maximum infusion rates: Central Line = 20 mEq/hour; Peripheral Line = 10 mEq/hour (10 mEq/100 mL). If dose administered, recheck potassium level 1 hour after infusion complete. For potassium level 3.4 to 3.8 mmol/L and Serum Creatinine 1.2 or less = 30 mEq For potassium level 3.1 to 3.3 mmol/L and Serum Creatinine 1.2 or less = 40 mEq For potassium level 3 mmol/L or less and Serum Creatinine 1.2 or less = 50 mEq For potassium level 3.4 to 3.8 mmol/L and Serum Creatinine greater than 1.2 = 20 mEq For potassium level 3.1 to 3.3 mmol/L and Serum Creatinine greater than 1.2 = 30 mEq For potassium level 3 mmol/L or less and Serum Creatinine greater than 1.2 = 40 mEq VESICANT (YELLOW) Infuse each 10 mEq over a minimum of 1 hour. potassium chloride IVPB 10 mEq/50 mL in water (0.2 mEq/mL premix)(Linked Group 7) 10 mEq, intravenous, at 50 mL/hr, Administer over 1 Hours, As needed, for potassium replacement, Starting on Mon12/17/24 at 1450, Administer Potassium Chloride IVPB in 10 mEq increments. Maximum infusion rates: Central Line = 20 mEq/hour. Administer via Central Line Only. If dose administered, recheck potassium level 1 hour after infusion complete. For potassium level 3.4 to 3.8 mmol/L and Serum Creatinine 1.2 or less = 30 mEq For potassium level 3.1 to 3.3 mmol/L and Serum Creatinine 1.2 or less = 40 mEq For potassium level 3 mmol/L or less and Serum Creatinine 1.2 or less = 50 mEq For potassium level 3.4 to 3.8 mmol/L and Serum Creatinine greater than 1.2 = 20 mEq For potassium level 3.1 to 3.3 mmol/L and Serum Creatinine greater than 1.2 = 30 mEq For potassium level 3 mmol/L or less and Serum Creatinine greater than 1.2 = 40 mEq VESICANT (YELLOW) rifAMPin (RIFADIN) 600 mg in sodium chloride 0.9 % 100 mL irrigation (CANCELED) As needed, Starting on Mon12/17/24 at 1151, Intra-op 1151 (Given - Provider: Maldonado Prince MD - Comment: given to sterile back table to soak graft) sod phos di, mono-K phos mono (K-PHOS NEUTRAL) 250 mg tablet 2 tablet(Linked Group 8) 2 tablet, oral, As needed, for phosphorous level 2.3 mg/dL or less, Starting on Mon12/17/24 at 1450, If dose administered, recheck phosphorus level 4 hours after last dose. Look-alike/sound-alike medication - verify indication for use. Give with a full glass of water. sodium chloride 0.9 % infusion 20 mL/hr, intravenous, Continuous PRN, per policy for blood product transfusion, Starting on Mon12/18/24 at 1617, For 24 hours, Initiate prior to blood product transfusion. Continue before and after each blood product transfusion. Discontinue upon completion of blood product transfusion(s). sodium chloride 0.9% (NS) irrigation bottle (CANCELED) As needed, Starting on Mon12/17/24 at 1120, Intra-op 1120 (Given - Provider: Maldonado Prince MD - Comment: sterile back table) sodium phosphate 20 mmol in sodium chloride 0.9 % 100 mL IVPB(Linked Group 8) 20 mmol, intravenous, at 26.7 mL/hr, Administer over 4 Hours, As needed, for phosphorous level 2.3 mg/dL or less, Starting on Mon12/17/24 at 1450, Administer over 4 hours via dedicated line(central line). If administered, recheck phosphorus level 4 hours after infusion complete. Infuse using central line access. sodium phosphate 20 mmol in sodium chloride 0.9 % 250 mL IVPB(Linked Group 8) 20 mmol, intravenous, at 42.8 mL/hr, Administer over 6 Hours, As needed, for phosphorous level 2.3 mg/dL or less, Starting on Mon12/17/24 at 1450, Administer over 6 hours via dedicated line (peripheral line). If administered, recheck phosphorus level 4 hours after infusion complete. Linked Groups Order Group 1: calcium gluconate IVPB 1000 mg/50 mL (20 mg/mL premix)Jump to med 1,000 mg, intravenous, at 50 mL/hr, Administer over 60 Minutes, As needed, for ionized calcium level 3.5 to 4.4 mg/dL, Starting on Mon12/17/24 at 1450, Recheck ionized calcium 6 hours after infusion. Hold calcium replacement for phosphorus greater than 5.5 mg/dL. VESICANT (RED) Or calcium gluconate 2,000 mg in sodium chloride 0.9 % 100 mL IVPBJump to med 2,000 mg, intravenous, at 120 mL/hr, Administer over 60 Minutes, As needed, for ionized calcium level 3 to 3.4 mg/dL, Starting on Mon12/17/24 at 1450, Recheck ionized calcium 6 hours after infusion. Hold calcium replacement for phosphorus greater than 5.5 mg/dL. VESICANT (RED) Or calcium gluconate 3,000 mg in sodium chloride 0.9 % 100 mL IVPBJump to med 3,000 mg, intravenous, at 130 mL/hr, Administer over 60 Minutes, As needed, for ionized calcium level less than 3 mg/dL, Starting on Mon12/17/24 at 1450, CALL PHYSICIAN if this dose is administered. Recheck ionized calcium 6 hours after infusion. Hold calcium replacement for phosphorus greater than 5.5 mg/dL. VESICANT (RED) Group 2: magnesium sulfate IVPB 2000 mg/50 mL in iso-osmotic water (40 mg/mL premix)Jump to med 2,000 mg, intravenous, at 25 mL/hr, Administer over 120 Minutes, As needed, for magnesium level 1.7 to 1.9 mg/dL or ionized magnesium level 0.45 to 0.5 mmol/L, Starting on Mon12/17/24 at 1450, Use premix solution. Default to ionized magnesium level in cases where patient has both magnesium and ionized magnesium results. If administered, check ionized magnesium (or total magnesium if ionized magnesium unavailable) level 4 hours after infusion. Or magnesium sulfate IVPB 4000 mg/100 mL in iso-osmotic water (40 mg/mL premix)Jump to med 4,000 mg, intravenous, at 25 mL/hr, Administer over 240 Minutes, As needed, for magnesium level 1.6 mg/mL or less, or ionized magnesium level 0.44 mmol/L or less, Starting on Mon12/17/24 at 1450, Use premix solution. Default to ionized magnesium level in cases where patient has both magnesium and ionized magnesium results. If administered, check ionized magnesium (or total magnesium if ionized magnesium unavailable) level 4 hours after infusion. Group 3: ondansetron (PF) (ZOFRAN) injection 4 mgJump to med 4 mg, intravenous, Every 8 hours PRN, nausea, vomiting, Starting on Mon12/17/24 at 1455, Administer over 2-5 minutes. Or ondansetron ODT (ZOFRAN ODT) disintegrating tablet 8 mgJump to med 8 mg, oral, Every 8 hours PRN, nausea, vomiting, Starting on Mon12/17/24 at 1455 Group 4: oxyCODONE (ROXICODONE) immediate release tablet 5 mg (CANCELED) 5 mg, oral, Every 4 hours PRN, pain scale 1-6, Starting on Mon12/17/24 at 1444, PACU (only), Look-alike/sound-alike medication - verify indication for use. Immediate release. Or oxyCODONE (ROXICODONE) immediate release tablet 10 mg (CANCELED)Jump to med 10 mg, oral, Every 4 hours PRN, severe pain - pain scale 7-10, Starting on Mon12/17/24 at 1444, PACU (only), Look-alike/sound-alike medication - verify indication for use. Immediate release. Group 5: oxyCODONE (ROXICODONE) immediate release tablet 5 mgJump to med 5 mg, oral, Every 4 hours PRN, moderate pain - pain scale 4-6, Starting on Mon12/17/24 at 1455, For 3 days, Look-alike/sound-alike medication - verify indication for use. Immediate release. Or oxyCODONE (ROXICODONE) immediate release tablet 10 mgJump to med 10 mg, oral, Every 4 hours PRN, severe pain - pain scale 7-10, Starting on Mon12/17/24 at 1455, For 3 days, Look-alike/sound-alike medication - verify indication for use. Immediate release. Group 6: potassium chloride (K-TAB,KLOR-CON) CR tablet 20-50 mEqJump to med 20-50 mEq, oral, As needed, for potassium replacement, Starting on Mon12/17/24 at 1450, Progress to oral potassium replacement when patient tolerating oral intake. If dose administered, recheck potassium level 4 hours after last dose. For potassium level 3.4 to 3.8 mmol/L and Serum Creatinine 1.2 or less=30 mEq. For potassium level 3.1 to 3.3 mmol/L and Serum Creatinine 1.2 or less=40 mEq. For potassium level 3 mmol/L or less and Serum Creatinine 1.2 or less=50 mEq. For potassium level 3.4 to 3.8 mmol/L and Serum Creatinine greater than 1.2=20 mEq. For potassium level 3.1 to 3.3 mmol/L and Serum Creatinine greater than 1.2=30 mEq. For potassium level 3 mmol/L or less and Serum Creatinine greater than 1.2=40 mEq. Do not crush or chew. Or potassium chloride (KAYCIEL) 20 mEq/15 mL solution 20-50 mEqJump to med 20-50 mEq, oral, As needed, potassium replacement, Starting on Mon12/17/24 at 1450, Progress to oral potassium replacement when patient tolerating oral intake. If dose administered, recheck potassium level 4 hours after last dose. For potassium level 3.4 to 3.8 mmol/L and Serum Creatinine 1.2 or less=30 mEq (22.5mL). For potassium level 3.1 to 3.3 mmol/L and Serum Creatinine 1.2 or less=40 mEq (30mL). For potassium level 3 mmol/L or less and Serum Creatinine 1.2 or less=50 mEq (37.5mL). For potassium level 3.4 to 3.8 mmol/L and Serum Creatinine greater than 1.2=20 mEq (15mL). For potassium level 3.1 to 3.3 mmol/L and Serum Creatinine greater than 1.2=30 mEq (22.5mL). For potassium level 3 mmol/L or less and Serum Creatinine greater than 1.2=40 mEq (30mL). Must dilute before use - Mix in 3-8 ounces of water or juice before administration When administering in feeding tube, flush before and after per policy and monitor potassium levels Group 7: potassium chloride IVPB 10 mEq/50 mL in water (0.2 mEq/mL premix)Jump to med 10 mEq, intravenous, at 50 mL/hr, Administer over 1 Hours, As needed, for potassium replacement, Starting on Mon12/17/24 at 1450, Administer Potassium Chloride IVPB in 10 mEq increments. Maximum infusion rates: Central Line = 20 mEq/hour. Administer via Central Line Only. If dose administered, recheck potassium level 1 hour after infusion complete. For potassium level 3.4 to 3.8 mmol/L and Serum Creatinine 1.2 or less = 30 mEq For potassium level 3.1 to 3.3 mmol/L and Serum Creatinine 1.2 or less = 40 mEq For potassium level 3 mmol/L or less and Serum Creatinine 1.2 or less = 50 mEq For potassium level 3.4 to 3.8 mmol/L and Serum Creatinine greater than 1.2 = 20 mEq For potassium level 3.1 to 3.3 mmol/L and Serum Creatinine greater than 1.2 = 30 mEq For potassium level 3 mmol/L or less and Serum Creatinine greater than 1.2 = 40 mEq VESICANT (YELLOW) Or potassium chloride IVPB 10 mEq/100 mL in water (0.1 mEq/mL premix)Jump to med 10 mEq, intravenous, at 100 mL/hr, Administer over 60 Minutes, As needed, for potassium replacement, Starting on Mon12/17/24 at 1450, Administer Potassium Chloride IVPB in 10 mEq increments. Maximum infusion rates: Central Line = 20 mEq/hour; Peripheral Line = 10 mEq/hour (10 mEq/100 mL). If dose administered, recheck potassium level 1 hour after infusion complete. For potassium level 3.4 to 3.8 mmol/L and Serum Creatinine 1.2 or less = 30 mEq For potassium level 3.1 to 3.3 mmol/L and Serum Creatinine 1.2 or less = 40 mEq For potassium level 3 mmol/L or less and Serum Creatinine 1.2 or less = 50 mEq For potassium level 3.4 to 3.8 mmol/L and Serum Creatinine greater than 1.2 = 20 mEq For potassium level 3.1 to 3.3 mmol/L and Serum Creatinine greater than 1.2 = 30 mEq For potassium level 3 mmol/L or less and Serum Creatinine greater than 1.2 = 40 mEq VESICANT (YELLOW) Infuse each 10 mEq over a minimum of 1 hour. Group 8: sodium phosphate 20 mmol in sodium chloride 0.9 % 250 mL IVPBJump to med 20 mmol, intravenous, at 42.8 mL/hr, Administer over 6 Hours, As needed, for phosphorous level 2.3 mg/dL or less, Starting on Mon12/17/24 at 1450, Administer over 6 hours via dedicated line (peripheral line). If administered, recheck phosphorus level 4 hours after infusion complete. Or sodium phosphate 20 mmol in sodium chloride 0.9 % 100 mL IVPBJump to med 20 mmol, intravenous, at 26.7 mL/hr, Administer over 4 Hours, As needed, for phosphorous level 2.3 mg/dL or less, Starting on Mon12/17/24 at 1450, Administer over 4 hours via dedicated line(central line). If administered, recheck phosphorus level 4 hours after infusion complete. Infuse using central line access. Or sod phos di, mono-K phos mono (K-PHOS NEUTRAL) 250 mg tablet 2 tabletJump to med 2 tablet, oral, As needed, for phosphorous level 2.3 mg/dL or less, Starting on Mon12/17/24 at 1450, If dose administered, recheck phosphorus level 4 hours after last dose. Look-alike/sound-alike medication - verify indication for use. Give with a full glass of water. FOR RECORDS PERTAINING TO PATIENTS WHO ARE [...] BE BASED ON THE PRIMARY CLINICAL RECORDS. [facility]. provides no warranty or guarantee of the accuracy or completeness of information in this document.
--- NOTE | 2024-12-20 07:37 | ECG_ITS ---
[facility] Test Date: 2024-12-20 Pat Name: BHAVYA COCHRAN Department: Room: - Gender: Female Museum Assistant: : [id number] Requested By: [id number] Order Number: [id number] Alyssia MD: PATRIC HEMPHILL M.D. Measurements Intervals [place]nard Rate: 98 P: 61 FL: 160 QRS: 42 QRSD: 84 T: 65 QT: 342 QTc: 397 Interpretive Statements 1100 Sinus rhythm [address] depression [address] & Twave abnormality 9150 abnormal ECG Compared to ECG 11/10/2017 04:10:09 ST (T wave) deviation now present Myocardial infarct finding no longer present Electronically Signed On 12-20-2024 9:26:07 EDT by PATRIC HEMPHILL M.D.
--- NOTE | 2024-12-20 07:38 | PC.NURSE ---
pt presents via [facility], pt was given 4 zofran en route, pt denies nausea and dizziness at this time.
[2024-12-20] MEDS: 0.9 % SODIUM CHLORIDE 1,000 ML 1000 ML IV (07:51)
--- NOTE | 2024-12-20 07:51 | ED_ITS ---
HPI HPI - General Adult General Chief complaint: Nausea/Vomiting/Diarrhea Stated complaint: DIZZINESS Time Seen by Provider: 12/20/24 07:37 Source: patient Mode of arrival: ambulance Limitations: no limitations History of Present Illness HPI narrative: Patient is a 69-year-old female who is presenting to the ER with chief complaint of nausea, vomiting, lightheaded dizziness with no vertigo that started around 730 last night. Patient was discharged from [facility] at 3:30 PM last evening. Patient has no headache or neck pain. Patient was given Zofran from EMS that has helped resolve her symptoms. Patient stated that she ate [employer] last evening, and after she had a roast beef sandwich is when she started having the nausea and vomiting. Patient vomited her food up, and then it was clear emesis after that with some dry heaving. Patient called the EMS this morning and was brought to the ER. 2 sons are at bedside. Patient was just in [facility] for vascular surgery. Patient had a loss of blood flow to the right foot, she had infection and ulcerations noted to the right foot. Patient had vascular surgery in her right groin and left groin to help with vascularization. Patient currently has no chest pain or shortness of breath. No abdominal pain. Nausea has improved. No abdominal pain. Patient's surgical incisions are clean dry intact. Patient's right foot infection, redness, ulcerations are healing. Patient's PCP is Dr. Bowman. Patient has no rehab set up. Patient states that she did not get up and move much after her surgery. Patient was discharged yesterday. Patient has no rehab, PT OT set up. Patient has no scheduled appointment with Dr. Bowman. Patient's follow-up appointment with the vascular surgeon is on January 02. Patient surgery was this week on December 17. All systems are negative except as noted/marked. All systems reviewed and otherwise negative. Nurses note and vital signs reviewed and patient is not hypoxic. General: The patient appears well and in no apparent distress. Patient is resting comfortably on cart. Patient is not toxic, lethargic, or listless. 2 sons at bedside, room smells of cigarettes. Patient says she quit smoking 20 days ago. Patient was a half a pack and a smoker at that point but long standing history of smoking. Skin: Warm, dry, no pallor noted. There is no rash noted. No petechiae, purpur a. Patient has chronic changes to the dorsal aspect of the right foot, mild diffuse redness is improving, ulcerations are healing, patient still has Betadine coloration on her toes. Patient does have pulses that are palpated to bilateral dorsalis pedis. Patient has sensation to the 5 toes of the right foot. Patient has no unilateral swelling to lower extremities. Patient surgical incision was clean, dry, intact, this was evaluated with Rachael RN at bedside. Head: Normocephalic, atraumatic Eye: Normal conjunctiva, no drainage, EOMI. PERRL Ears, Nose, Mouth, and Throat: oral mucosa is moist. Nares patent. Mouth without vesicles. Cardiovascular: Regular Rate and Rhythm, no murmur, gallop, rub Respiratory: Patient is in no distress, no accessory muscle use, lungs are clear to auscultation, no wheezing, rales or rhonchi Back: non-tender, no CVA tenderness bilaterally to percussion. No CT LS midline pain GI: Soft, no flank pain bilateral, no peritoneal signs, no tenderness to p alpation, no masses appreciated. No rebound, guarding, or rigidity noted. No distention Musculoskeletal: Patient has full range of motion of all of the extremities, no motor, sensory, or focal neurological deficits. See skin evaluation. Patient has no palpable abscess, no pseudoaneurysms, no masses, no acute abnormalities noted to bilateral inguinal surgical incisions. Wounds are clean, dry, intact. No acute abnormalities noted. These were reviewed with Rachael HARTMAN at bedside. Neurological: A&O x4, normal speech Psychiatric: Cooperative Related Data Home Medications ?Medication ?Instructions ?Recorded ?Confirmed cilostazol 100 mg tablet mg 10/15/24 clonidine HCl 0.1 mg tablet mg 10/15/24 echinacea 125 mg capsule 125 mg PO DAILY 10/15/24 11/04/24 lisinopril 10 mg tablet mg 10/15/24 zinc 50 mg capsule 50 mg PO DAILY 10/15/24 11/04/24 zonisamide 100 mg capsule 150 mg PO .hs 10/15/24 11/04/24 (Zonegran) baclofen 10 mg tablet 10 mg PO TID 10/30/24 12/20/24 Previous Rx's ?Medication ?Instructions ?Recorded aspirin 81 mg capsule 81 mg PO DAILY #30 caps 11/26/24 atorvastatin 40 mg tablet 40 mg PO DAILY #30 tabs 11/26/24 clopidogrel 75 mg tablet (Plavix) 75 mg PO DAILY #30 tabs 11/26/24 ondansetron 4 mg disintegrating 4 mg PO Q4H PRN nausea and 12/20/24 tablet vomiting 3 days #6 tabs Allergies Allergy/AdvReac Type Severity Reaction Status Date / Time No Known Drug Allergies Allergy Verified 12/20/24 07:28 Opioid HPI Opioid Management Most Recent Opioid Data: Last Pain Scale 1 11/04/24 08:56 [facility]04[facility] History Low back pain ?M54.50 - Low back pain, unspecified (ICD-10) Anemia ?D64.9 - Anemia, unspecified (ICD-10) Acid reflux ?K21.9 - Gastro-esophageal reflux disease without esophagitis (ICD-10) Smoker ?F17.200 - Nicotine dependence, unspecified, uncomplicated (ICD-10) Hypertension ?I10 - Essential (primary) hypertension (ICD-10) Surgical History History of tubal ligation ?Z98.51 - Tubal ligation status (ICD-10) H/O breast biopsy ?Z98.890 - Other specified postprocedural states (ICD-10) H/O oophorectomy Hx of cholecystectomy ?Z90.49 - Acquired absence of other specified parts of digestive tract (ICD- 10) Social History Little interest or pleasure in doing things: not at all Feeling down, depressed, or hopeless: not at all Exam Constitutional Vital Signs, click to edit/add: Last Vital Signs Temp 98.4 F 12/20/24 07:24 Pulse 86 12/20/24 08:50 Resp 13 12/20/24 08:50 BP 154/91 H 12/20/24 08:45 Pulse Ox 98 12/20/24 08:50 O2 Del Method Room Air 12/20/24 07:24 Course Vital Signs Vital signs: Vital Signs Temperature 98.4 F 12/20/24 07:24 Pulse Rate 98 H 12/20/24 07:24 Respiratory Rate 18 12/20/24 07:24 Blood Pressure 146/84 H 12/20/24 07:24 Pulse Oximetry 98 12/20/24 07:24 Oxygen Delivery Method Room Air 12/20/24 07:24 Temperature 98.4 F 12/20/24 07:24 Pulse Rate 86 12/20/24 08:50 Respiratory Rate 13 12/20/24 08:50 Blood Pressure 154/91 H 12/20/24 08:45 Pulse Oximetry 98 12/20/24 08:50 Oxygen Delivery Method Room Air 12/20/24 07:24 Medical Decision Making MDM Narrative Medical decision making narrative: Patient felt better after IV fluids. Patient had mild nausea at discharge, she was given a dose of Zofran. Patient did walk in the bed across the donald and back. Patient stated that she felt better. Patient was sent home with a prescription for Zofran. Patient will follow-up with her PCP. Patient also was told to call the vascular surgeon why she was here in the ER, 2 sons and patient did not call why they are waiting for unknown reason with other questions patient had. Patient said that she will call when she gets home this afternoon. Patient is aware of anemia, also aware of elevated LFTs. Patient is aware that patient will have to follow-up with PCP next week and have repeat blood test. Education of anemia and elevated LFTs were discussed with family. Patient understands as well, no question at discharge. Lab Data Lab results reviewed: Yes I reviewed the patient's lab results Labs: Lab Results 12/20/24 Range/Units 07:35 WBC 12.5 H (4.0-11.0) 10^3/uL RBC 4.36 (4.20-5.40) 10^6/uL Hgb 8.9 L (12.0-16.0) g/dL Hct 28.4 L (36.0-48.0) % MCV 65.1 L (81.0-99.0) fL MCH 20.4 L (26.7-34.0) pg MCHC 31.3 (29.9-35.2) g/dL RDW 18.7 H (11.0-15.0) % Plt Count 302 (150-450) 10^3/uL MPV 10.5 (9.5-13.5) fL Neut % (Auto) 72.7 (43.0-75.0) % Lymph % (Auto) 18.7 L (20.5-60.0) % [place] % (Auto) 7.2 (1.7-12.0) % Eos % (Auto) 0.5 L (0.9-7.0) % Baso % (Auto) 0.3 (0.2-2.0) % Neut # (Auto) 9.1 H (1.4-6.5) 10^3/uL Lymph # (Auto) 2.3 (1.2-3.8) 10^3/uL [place] # (Auto) 0.9 H (0.3-0.8) 10^3/uL Eos # (Auto) 0.1 (0.0-0.7) 10^3/uL Baso # (Auto) 0.0 (0.0-0.1) 10^3/uL Abs Immat Gran (auto) 0.08 H (0.00-0.03) 10^3/uL Imm/Tot Granulo (auto) 0.6 H (0.0-0.5) % Sodium 137 (136-145) mmol/L Potassium 3.7 (3.5-5.1) mmol/L Chloride 102 (98-107) mmol/L Carbon Dioxide 27.1 (21.0-32.0) mmol/L Anion Gap 11.6 BUN 16.0 (7.0-18.0) mg/dL Creatinine 1.14 H (0.55-1.02) mg/dL Est GFR ( Amer) 58 L (>=60 mL/min/1.73m^2) Est GFR (Non-Af Amer) 48 L (>=60 mL/min/1.73m^2) BUN/Creatinine Ratio 14.0 Glucose 121 H (74-106) mg/dL Calcium 8.8 (8.5-10.1) mg/dL Magnesium 2.3 (1.8-2.4) mg/dL Total Bilirubin 0.9 (0.2-1.0) mg/dL AST 82 H (15-37) U/L ALT 105 H (14-59) U/L Alkaline Phosphatase 161 H (46-116) U/L Troponin I High Sens 8.7 (4.0-51.3) pg/mL Total Protein 6.9 (6.4-8.2) g/dL Albumin 2.7 L (3.4-5.0) g/dL Globulin 4.2 g/dL Albumin/Globulin Ratio 0.6 ECG Data Attestation: I personally reviewed and interpreted this ECG as follows: (EKG interpretation. Normal sinus rhythm at 98 beats a minute. Normal axis deviation. No acute ST elevation, no acute ectopy. QTc of 397.) Discharge Plan Discharge Chief Complaint: Nausea/Vomiting/Diarrhea Clinical Impression: Nausea & vomiting, Anemia, Elevated LFTs, Dizziness Patient Disposition: Home, Self-Care Time of Disposition Decision: 09:11 Condition: Fair Prescriptions / Home Meds: New ondansetron 4 mg tablet,disintegrating 4 mg PO Q4H PRN (Reason: nausea and vomiting) 3 Days Qty: 6 0RF No Action baclofen 10 mg tablet 10 mg PO TID Rx Instructions: 1/2 to 1 tab three times a day, as needed cilostazol 100 mg tablet clonidine HCl 0.1 mg tablet lisinopril 10 mg tablet zinc 50 mg capsule 50 mg PO DAILY echinacea 125 mg capsule 125 mg PO DAILY Rx Instructions: administer with meals zonisamide [Zonegran] 100 mg capsule 150 mg PO .hs aspirin 81 mg capsule 81 mg PO DAILY Qty: 30 0RF clopidogrel [Plavix] 75 mg tablet 75 mg PO DAILY Qty: 30 0RF atorvastatin 40 mg tablet 40 mg PO DAILY Qty: 30 0RF Print Language: Jordanian Instructions: Acute Nausea and Vomiting (ED), Lightheadedness (ED), Dizziness (ED), Anemia (ED) Additional Instructions: Your hemoglobin level was 8.9. You had slight elevation of your liver function test as well. No other acute findings. Use Zofran if needed to help with nausea or vomiting. Increase fluids, Gatorade, Powerade, water. Call your vascular surgeon for any other questions related to your surgery. Follow-up with PCP as needed. Referrals: Janes Bowman MD [Primary Care Provider] - 1 week Discharge Date/Time: 12/20/24 09:29
[2024-12-20 08:03] LABS: Basophils Percent Auto 0.3 % (0.2-2.0); Eosinophils Absolute Auto 0.1 10^3/uL (0.0-0.7); Eosinophils Percent Auto 0.5 % (0.9-7.0); Hematocrit 28.4 % (36.0-48.0); Hemoglobin 8.9 g/dL (12.0-16.0); Immature Granulocytes Abs Auto 0.08 10^3/uL (0.00-0.03); Immature Granulocytes Pct Auto 0.6 % (0.0-0.5); Lymphocytes Absolute Auto 2.3 10^3/uL (1.2-3.8); Lymphocytes Percent Auto 18.7 % (20.5-60.0); Mean Corpuscular HGB Conc 31.3 g/dL (29.9-35.2); Mean Corpuscular Hemoglobin 20.4 pg (26.7-34.0); Mean Corpuscular Volume 65.1 fL (81.0-99.0); Mean Platelet Volume 10.5 fL (9.5-13.5); Monocytes Absolute Auto 0.9 10^3/uL (0.3-0.8); Monocytes Percent Auto 7.2 % (1.7-12.0); Neutrophils Absolute Auto 9.1 10^3/uL (1.4-6.5); Neutrophils Percent Auto 72.7 % (43.0-75.0); Platelet Count 302 10^3/uL (150-450); Red Blood Count 4.36 10^6/uL (4.20-5.40); Red Cell Distribution Width 18.7 % (11.0-15.0); White Blood Count 12.5 10^3/uL (4.0-11.0)
[2024-12-20 08:22] LABS: Alanine Aminotransferase 105 U/L (14-59); Albumin Globulin Ratio 0.6; Albumin Level 2.7 g/dL (3.4-5.0); Alkaline Phosphatase 161 U/L (46-116); Anion Gap 11.6; Aspartate Amino Transferase 82 U/L (15-37); Bilirubin Total 0.9 mg/dL (0.2-1.0); Calcium 8.8 mg/dL (8.5-10.1); Carbon Dioxide 27.1 mmol/L (21.0-32.0); Chloride 102 mmol/L (98-107); Estimated GFR (African America 58 (>=60 mL/min/1.73m^2); Estimated GFR (Non-African Ame 48 (>=60 mL/min/1.73m^2); Globulin 4.2 g/dL; Glucose 121 mg/dL (74-106); Magnesium 2.3 mg/dL (1.8-2.4); Potassium 3.7 mmol/L (3.5-5.1); Sodium 137 mmol/L (136-145); Total Protein 6.9 g/dL (6.4-8.2); Troponin I High Sensitivity 8.7 pg/mL (4.0-51.3)
--- NOTE | 2024-12-20 09:05 | PC.NURSE ---
pt ambulates in the hallway with walker and this RN, pt did well with ambulation.
[2024-12-20] MEDS: ONDANSETRON PF 4 MG/2 ML VIAL IV (09:14)
== END 2024-12-20 09:29 | disposition home or self-care (01) ==
PROVIDERS: Emergency Provider Emergency Medicine; PCP Family Medicine
DX: R11.2 Nausea with vomiting, unspecified (principal); R42 Dizziness and giddiness; D64.9 Anemia, unspecified; Z98.890 Other specified postprocedural states; Z87.891 Personal history of nicotine dependence; Z90.49 Acquired absence of other specified parts of digestive tract; Z98.51 Tubal ligation status; R79.89 Other specified abnormal findings of blood chemistry
CPT/HCPCS: 36415; 80053; 83735; 84484; 85025; 93005; 96361; 96374; 99285; J2405

== ENCOUNTER 2025-01-14 12:50 | Outpatient (OUT) | payer MEDICARE, SELFPAY ==
--- OUTSIDE RECORDS SUMMARY | 2025-01-14 12:59 | XMS_ITS | CCD ---
Author Organization [facility] CliniSynv Care Team Providers Care Ct Scan Tech Name Role Phone PHYSICIAN, DEFAULT Unavailable Unavailable PHYSICIAN, DEFAULT Unavailable Unavailable Gintnyla, Evonne Unavailable TED CASTREJON Admitting Unavailable TED CASTREJON Attending Unavailable MARTI, DR CHEUNG Primary Care Unavailable TED CASTREJON Consulting Unavailable MARTI, DR CHEUNG Admitting Unavailable MARTI, DR CHEUNG Attending Unavailable MARTI, DR CHEUNG Primary Care Unavailable MARTI, DR CHEUNG Consulting Unavailable Skye Bowman MD Primary Care Provider [phone] Henrique AMAYA, Garrison Davis Attending Unavailable Henrique AMAYA, Garrison Davis Attending Unavailable Henrique AMAYA, Garrison Davis Attending Unavailable Skye Bowman MD Primary Care Provider [phone] ROLANDA, MOHAMAD Attending Unavailable ALGHOTHANI, MOHAMAD Referring Unavailable HOY, SKYE M Primary Care Unavailable ALGHOTHANI, MOHAMAD Referring Unavailable HOY, SKYE M Primary Care Unavailable ALGHOTHANI, MOHAMAD Referring Unavailable HOY, SKYE M Primary Care Unavailable JIM, MOHAMED F Referring Unavailable HOY, SKYE M Primary Care Unavailable JIM, MOHAMED F Admitting Unavailable JIM, MOHAMED F Attending Unavailable HOY, SKYE M Primary Care Unavailable Skye Bowman MD Primary Care Provider [phone] JIM, MOHAMED F Attending Unavailable HOY, SKYE M Referring Unavailable HOY, SKYE M Primary Care Unavailable HOY, SKYE M Referring Unavailable HOY, SKYE M Primary Care Unavailable JIM, MOHAMED F Attending Unavailable HOY, SKYE M Referring Unavailable HOY, SKYE M Primary Care Unavailable Allergies Allergy Classification Reported Allergen(s) Allergy Type Date of Onset Reaction(s) Facility (5 sources) nickel; Translations: [NICKEL] Drug Allergy 12-12-2024 [facility] (5 sources) Contact Metal Agent; Translations: [CONTACT METAL AGENT] Propensity to adverse reactions to drug 12-06-2024 [facility] Medications Current Medications Medication Drug Class(es) Dates Sig (Normalized) Sig (Original) acetaminophen 500 mg oral tablet (1 source) Start: 12-17-2024 End: 12-20-2024 take 1000 mg by mouth four times daily 1,000 mg, oral, 4 times daily, First dose on Mon12/17/24 at 1900, For 72 hours atorvastatin 40 mg oral tablet (6 sources) HMG-CoA Reductase Inhibitor Start: 12-18-2024 take 40 mg by mouth once daily 40 mg, oral, Daily, First dose on Mon12/18/24 at 0900, Look-alike/soun d-alike medication - verify indication for use. baclofen 10 mg oral tablet (6 sources) gamma-Aminobutyric Acid-ergic Agonist Start: 10-30-2024 take 1 tablet by mouth three times daily baclofen (LIORESAL) 10 mg tablet Take 1 tablet (10 mg total) by mouth 3 (three) times a day. 10/30/2024 Active Calcium Gluconate (1 source) Start: 12-17-2024 calcium gluconate IVPB 1000 mg/50 mL (20 mg/mL premix) cefdinir 300 mg oral capsule (1 source) Cephalosporin Antibacterial Start: 12-24-2024 take 2 capsules by mouth in the morning, then take 2 capsules by mouth at bedtime cefDINIR (OMNICEF) 300 mg capsule Take 2 capsules (600 mg total) by mouth in the morning and 2 capsules (600 mg total) before bedtime. 12/24/2024 Active cilostazol 100 mg oral tablet (9 sources) Phosphodiesterase 3 Inhibitor Start: 07-08-2024 take 100 mg by mouth once Cilostazol Active 100 MG PO Once July 08, 2024 12:00am Start: 04-25-2023 End: 11-04-2023 take 100 mg by mouth twice daily after mealtime 100 mg, oral, 2 times daily, First dose on Mon12/17/24 at 2100, Give 30 minutes before or 2 hours after meals. cloNIDine hydrochloride 0.1 mg oral tablet (7 sources) Central alpha-2 Adrenergic Agonist Start: 07-08-2024 take 0.1 mg by mouth once daily 0.1 mg, oral, Daily, First dose on Mon12/18/24 at 0900, Look-alike/sound-alike medication - verify indication for use. Avoid rapid discontinuation. doxycycline monohydrate 100 mg oral capsule (1 source) Tetracycline-class Drug Start: 12-24-2024 take 1 capsule by mouth in the morning, then take 1 capsule by mouth at bedtime doxycycline (MONODOX) 100 mg capsule Take 1 capsule (100 mg total) by mouth in the morning and 1 capsule (100 mg total) before bedtime. 12/24/2024 Active gabapentin 300 mg oral capsule (6 sources) Anti-epileptic Agent Start: 11-18-2024 take 1 capsule by mouth three times daily gabapentin (NEURONTIN) 300 mg capsule Take 1 capsule (300 mg total) by mouth 3 (three) times a day. 11/18/2024 Active glucagon (rdna) 1 mg injection (1 source) [...] for bleeding. lisinopril 10 mg oral tablet (7 sources) Angiotensin Converting Enzyme Inhibitor Start: 11-24-2024 take 1 tablet by mouth in the morning lisinopriL (PRINIVIL,ZESTRIL) 10 mg tablet Take 1 tablet (10 mg total) by mouth in the morning. 11/24/2024 Active Start: 07-08-2024 take 10 mg by mouth [...] daily Prednisone Active 50 MG PO Daily 02 10July 08, 2024 12:00am sodium phosphate 20 mmol in sodium chloride 0.9 % 250 mL IVPB (1 source) Start: 12-17-2024 sodium phosphate 20 mmol in sodium chloride 0.9 % 250 mL IVPB zonisamide 100 mg oral capsule (6 sources) Anti-epileptic Agent Start: 12-17-2024 take 100 [...] aspirin 81 mg delayed release oral tablet (7 sources) Platelet Aggregation Inhibitor, Nonsteroidal Anti-inflammatory Drug [...] 1 dose clopidogrel 75 mg oral tablet (7 sources) P2Y12 Platelet Inhibitor Start: 12-17-2024 End: [...] [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 Deficiency and other anemia (1 source) Heterozygous thalassemia; 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-08-2024 Chronic Essential hypertension (1 source) Hypertensive disorder; Translations: [Essential (primary) hypertension] 07-08-2024 Chronic Gangrene (8 sources) Critical lower limb ischemia ; Translations: [Atherosclerosis of [place] arteries of extremities with gangrene, right leg] Onset: 5 11-28-2024 Chronic Other circulatory disease (1 source) Critical lower limb ischemia 01-02-2025 Episodic Other connective tissue disease (4 sources) [...] Onset: 5 Episodic Peripheral and visceral atherosclerosis (15 sources) Peripheral vascular disease; Translations: [Peripheral vascular disease, unspecified] Onset: 5 11-04-2023 Chronic Unclassified (1 source) Patient encounter status 12-12-2024 Unclassified (1 source) 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 ([facility]) [I70.261] Onset: 5 Unclassified (1 source) bilat iliac stents & fem-fem bypass 12-17-24 Onset: 5 Past or Other Problems Problem Classification Problem Date Documented Da te Episodic/Chronic Immunizations and screening for infectious disease (1 source) Contact with and (suspected) exposure to other viral communicable diseases Onset: 09-07-2021 Resolved: 09-07-2021 Episodic Mood disorders (2 sources) Mood disorders Onset: 12-17-2024 12-17-2024 Other circulatory disease (1 source) Carotid bruit; Translations: [Other specified symptoms and signs involving the circulatory and respiratory systems] 11-04-2023 Episodic Viral infection (1 source) COVID-19 Onset: 09-07-2021 Resolved: 09-07-2021 Results Test Name Value Interpretation Reference Range Facility CBC without diffon 5 Erythrocyte distribution width (RBC) [Ratio] 17.8 % High 11.5 - 15.0 % [facility] Hematocrit (Bld) [Volume fraction] 25.3 % Low 35 - 47 % [facility] Hemoglobin (Bld) [Mass/Vol] 8 g/dL Low 11.7 - 15.5 g/dL [facility] Interpretation and review of laboratory results Abnormal [facility] MCH (RBC) [Entitic mass] 20 pg Low 27 - 34 pg [facility] MCHC (RBC) [Mass/Vol] 31.7 g/dL Low 32 - 36 g/dL [facility] MCV (RBC) [Entitic vol] 63 fL Low 80 - 100 fL [facility] Platelet mean volume (Bld) [Entitic vol] 9 fL 7 - 12 fL [facility] Platelets (Bld) [#/Vol] 260 10*3/uL [facility] RBC (Bld) [#/Vol] 4.01 10*6/uL [facility] WBC corrected for nucl RBC Auto (Bld) [#/Vol] 11.4 High [facility] COMPLETE BLOOD COUNTon 12-19 Erythrocyte distribution width (RBC) [Ratio] 17.8 % High 11.5-15.0 [facility] Comment on above: Performed By: #### Cody MAGAÑA PINR, 45910-8, BMP #### [facility] ([id number]) [address], [address] [place] [address] Hematocrit (Bld) [Volume fraction] 25.3 % Low 35-47 [facility] Comment on above: Performed By: #### Cody MAGAÑA PINR, 77494-9, BMP #### [facility] ([id number]) [address], [address] [place] [address] Hemoglobin (Bld) [Mass/Vol] 8.0 g/dL Low 11.7-15.5 [facility] Comment on above: Performed By: #### Cody MAGAÑA, PINR, 85318-6, BMP #### [facility] ([id number]) [address], [address] [place] [address] MCH (RBC) [Entitic mass] 20.0 pg Low 27-34 [facility] Comment on above: Performed By: #### Cody MAGAÑA, PINR, 90763-8, BMP #### [facility] ([id number]) [address], [address] [place] [address] MCHC (RBC) [Mass/Vol] 31.7 g/dL Low 32-36 [facility] Comment on above: Performed By: #### C GÓMEZ PINR, 84813-7, BMP #### [facility] ([id number]) [address], [address] [place] [address] MCV (RBC) [Entitic vol] 63 fL Low 80-100 [facility] Comment on above: Performed By: #### C GÓMEZ PINR, 20803-5, BMP #### [facility] ([id number]) [address], [address] [place] [address] Platelet mean volume (Bld) [Entitic vol] 9.0 fL Normal 7-12 [facility] Comment on above: Performed By: #### Cody MAGAÑA PINR, 01959-4, BMP #### [facility] ([id number]) [address], [address] [place] [address] Platelets (Bld) [#/Vol] 260 10*3/uL Normal 150-450 [facility] Comment on above: Performed By: #### Cody MAGAÑA PINR, 30507-1, BMP #### [facility] ([id number]) [address], [address] [place] [address] RBC COUNT 4.01 X10E12/L Normal 3.80-5.20 [facility] Comment on above: Performed By: #### Cody MAGAÑA, PINR, 67098-6, BMP #### [facility] ([id number]) [address], [address] [place] [address] WBC (Bld) [#/Vol] 11.4 10*3/uL High 4.0-11.0 [facility] Comment on above: Performed By: #### Cody MAGAÑA, PINR, 52946-2, BMP #### [facility] ([id number]) [address], [address] [place] [address] COMPREHENSIVE METABOLIC PANE Heron 03-13-2025 Albumin [Mass/Vol] 3.0 g/dL Low 3.2-5.3 [facility] Comment on above: Performed By: #### C BCA, PINR, 13048-0, BMP #### [facility] ([id number]) [address], [address] [place] [address] ALP [Catalytic activity/Vol] 81 U/L Normal 39-130 [facility] Comment on above: Performed By: #### C BCA, PINR, 07477-5, BMP #### [facility] ([id number]) [address], [address] [place] [address] ALT [Catalytic activity/Vol] 26 U/L Normal 0-31 [facility] Comment on above: Performed By: #### C BCA, PINR, 07655-4, BMP #### [facility] ([id number]) [address], [address] [place] [address] Anion gap [Moles/Vol] 8 mmol/L Normal 5-15 [facility] Comment on above: Performed By: #### C BCA, PINR, 99878-5, BMP #### [facility] ([id number]) [address], [address] [place] [address] AST [Catalytic activity/Vol] 25 U/L Normal 0-41 [facility] Comment on above: Performed By: #### C BCA, PINR, 58970-3, BMP #### [facility] ([id number]) [address], [address] [place] [address] Bilirubin [Mass/Vol] 1.7 mg/dL High 0.3-1.2 [facility] Comment on above: Performed By: #### C BCA, PINR, 70904-4, BMP #### [facility] ([id number]) [address], [address] [place] [address] Calcium [Mass/Vol] 8.2 mg/dL Low 8.5-10.5 [facility] Comment on above: Performed By: #### C GÓMEZ PINR, 20044-5, BMP #### [facility] ([id number]) [address], [address] [place] [address] Chloride [Moles/Vol] 109 mmol/L Normal 98-109 [facility] Comment on above: Performed By: #### C GÓMEZ PINR, 93921-7, BMP #### [facility] ([id number]) [address], [address] [place] [address] CO2 [Moles/Vol] 21 mmol/L Low 22-32 [facility] Comment on above: Performed By: #### C GÓMEZ PINR, 93637-9, BMP #### [facility] ([id number]) [address], [address] [place] [address] Creatinine [Mass/Vol] 1.06 mg/dL High 0.40-1.00 [facility] Comment on above: Result Comment: METH OD TRACEABLE TO IDMS STANDARD Performed By: #### C PARK MAGAÑA, 32841-2, BMP #### [facility] ([id number]) [address], [address] [place] [address] GFR/1.73 sq M.predicted among non-blacks MDRD (S/P/Bld) [Vol rate/Area] 58 mL/min/{1.73_m2} Low >59 [facility] Comment on above: Result Comment: Reported eGFR is based on the CKD-EPI 2020 equation that does not use a race coefficient. Performed By: #### C GÓMEZ PINR, 80191-7, BMP #### [facility] ([id number]) [address], [address] [place] [address] Glucose [Mass/Vol] 121 mg/dL High 65-99 [facility] Comment on above: Performed By: #### C BCA, PINR, 13643-4, BMP #### [facility] ([id number]) [address], [address] [place] [address] Potassium [Moles/Vol] 3.8 mmol/L Normal 3.5-5.0 [facility] Comment on above: Performed By: #### C BCA, PINR, 73727-8, BMP #### [facility] ([id number]) [address], [address] [place] [address] Protein [Mass/Vol] 5.8 g/dL Low 6.0-8.0 [facility] Comment on above: Performed By: #### Cody MAGAÑA, PINR, 82587-2, BMP #### [facility] ([id number]) [address], [address] [place] [address] Sodium [Moles/Vol] 138 mmol/L Normal 134-146 [facility] Comment on above: Performed By: #### Cody BCA, PINR, 85662-4, BMP #### [facility] ([id number]) [address], [address] [place] [address] Urea nitrogen [Mass/Vol] 20 mg/dL Normal 5-27 [facility] Comment on above: Performed By: #### Cody BCA, PINR, 96372-4, BMP #### [facility] ([id number]) [address], [address] [place] [address] Comprehensive metabolic pane heron 12-19-2024 Albumin [Mass/Vol] 3 g/dL Low 3.2 - 5.3 g/dL [facility] ALP [Catalytic activity/Vol] 81 U/L 39 - 130 U/L [facility] ALT No additional P-5'-P [Catalytic activity/Vol] 26 U/L 0 - 31 U/L [facility] Anion gap [Moles/Vol] 8 mmol/L 5 - 15 mmol/L [facility] AST [Catalytic activity/Vol] 25 U/L 0 - 41 U/L [facility] Bilirubin [Mass/Vol] 1.7 mg/dL High 0.3 - 1 .2 mg/dL [facility] Calcium [Mass/Vol] 8.2 mg/dL Low 8.5 - 10. 5 mg/dL [facility] Chloride [Moles/Vol] 109 mmol/L 98 - 10 9 mmol/L [facility] CO2 [Moles/Vol] 21 mmol/L Low 22 - 32 mmol/L [facility] Creatinine [Mass/Vol] 1.06 mg/dL High 0.40 - 1.00 mg/dL [facility] Comment on above: METHOD TRACEABLE TO [facility] STANDARD eGFR (CKD-EPI)non-race dependent 58 Low - PINF [facility] Comment on above: Reported eGFR is based on the CKD-EPI 2020 equation that does not use a race coefficient. Glucose [Mass/Vol] 121 mg/dL High 65 - 99 mg/dL [facility] Interpretation and review of laboratory results Abnormal [facility] Potassium [Moles/Vol] 3.8 mmol/L 3.5 - 5.0 mmol/L [facility] Protein [Mass/Vol] 5.8 g/dL Low 6.0 - 8.0 g/dL [facility] Sodium [Moles/Vol] 138 mmol/L 134 - 146 mmol/L [facility] Urea nitrogen [Mass/Vol] 20 mg/dL 5 - 27 mg/dL [facility] Crossmatch RBC:Number of Uni ts: 1on 12-19-2024 BB Type Barcode 9500 [facility] Blood component type [id number] [facility] Crossmatch Compatible [facility] Expiration Date [id number] [facility] Status of unit TRANSFUSED [facility] Unit ABO O [facility] Unit number [id number] [facility] RH Negative [facility] Hemoglobin and hematocrit, b loodon 12-19-2024 Hematocrit (Bld) [Volume fraction] 25.2 % Low 35 - 47 % [facility] Hemoglobin (Bld) [Mass/Vol] 8.1 g/dL Low 11.7 - 15.5 g/dL [facility] Interpretation and review of laboratory results Abnormal [facility] MAGNESIUMon 12-19-2024 Magnesium [Mass/Vol] 1.8 mg/dL Normal 1.8-2.6 [facility] Comment on above: Performed By: #### YASH Ross BCAR, 95362-5, BMP #### [facility] ([id number]) [address] [place] [address] Magnesiumon 12-19-2024 Magnesium [Mass/Vol] 1.8 mg/dL 1.8 - 2 .6 mg/dL [facility] No Panel Informationon 12-19 [facility] PHOSPHORUSon 12-19-2024 Phosphate [Mass/Vol] 3.1 mg/dL Normal 2.4-4.9 [facility] Comment on above: Performed By: #### Cody MAGAÑA, PINR, 36282-0, BMP #### [facility] ([id number]) [address] [place] [address] Phosphoruson 12-19-2024 Phosphate [Mass/Vol] 3.1 mg/dL 2.4 - 4 .9 mg/dL [facility] ABO Rh Repeaton 12-18-2024 ABO O [facility] Rh Nom (Bld) Positive [facility] CBC without diffon Erythrocyte distribution width (RBC) [Ratio] 15.8 % High 11.5 - 15.0 % [facility] Hematocrit (Bld) [Volume fraction] 22.8 % Low 35 - 47 % [facility] Hemoglobin (Bld) [Mass/Vol] 7.3 g/dL Low 11.7 - 15.5 g/dL [facility] Interpretation and review of laboratory results Abnormal [facility] MCH (RBC) [Entitic mass] 19.4 pg Low 27 - 34 pg [facility] MCHC (RBC) [Mass/Vol] 31.9 g/dL Low 32 - 36 g/dL [facility] MCV (RBC) [Entitic vol] 61 fL Low 80 - 100 fL [facility] Platelet mean volume (Bld) [Entitic vol] 8.9 fL 7 - 12 fL [facility] Platelets (Bld) [#/Vol] 291 10*3/uL [facility] RBC (Bld) [#/Vol] 3.75 10*6/uL Low [facility] WBC corrected for nucl RBC Auto (Bld) [#/Vol] 12.8 High [facility] COMPLETE BLOOD COUNTon 12-18 Erythrocyte distribution width (RBC) [Ratio] 15.8 % High 11.5-15.0 [facility] Comment on above: Performed By: #### C PARK MAGAÑA, 12884-1, BMP #### [facility] ([id number]) [address], [address] [place] [address] Hematocrit (Bld) [Volume fraction] 22.8 % Low 35-47 [facility] Comment on above: Performed By: #### Cody MAGAÑA PINR, 70872-1, BMP #### [facility] ([id number]) [address], [address] [place] [address] Hemoglobin (Bld) [Mass/Vol] 7.3 g/dL Low 11.7-15.5 [facility] Comment on above: Performed By: #### Cody MAGAÑA PINR, 70638-2, BMP #### [facility] ([id number]) [address], [address] [place] [address] MCH (RBC) [Entitic mass] 19.4 pg Low 27-34 [facility] Comment on above: Performed By: #### Cody MAGAÑA PINR, 51986-2, BMP #### [facility] ([id number]) [address], [address] [place] [address] MCHC (RBC) [Mass/Vol] 31.9 g/dL Low 32-36 [facility] Comment on above: Performed By: #### C BCA, PINR, 05126-0, BMP #### [facility] ([id number]) [address], [address] [place] [address] MCV (RBC) [Entitic vol] 61 fL Low 80-100 [facility] Comment on above: Performed By: #### C GÓMEZ, PINR, 43096-3, BMP #### [facility] ([id number]) [address], [address] [place] [address] Platelet mean volume (Bld) [Entitic vol] 8.9 fL Normal 7-12 [facility] Comment on above: Performed By: #### C GÓMEZ, PINR, 42437-0, BMP #### [facility] ([id number]) [address], [address] [place] [address] Platelets (Bld) [#/Vol] 291 10*3/uL Normal 150-450 [facility] Comment on above: Performed By: #### C GÓMEZ, PINR, 68620-0, BMP #### [facility] ([id number]) [address], [address] [place] [address] RBC COUNT 3.75 X10E12/L Low 3.80-5.20 [facility] Comment on above: Performed By: #### C GÓMEZ, PINR, 79967-3, BMP #### [facility] ([id number]) [address], [address] [place] [address] WBC (Bld) [#/Vol] 12.8 10*3/uL High 4.0-11.0 [facility] Comment on above: Performed By: #### Cody MAGAÑA, PINR, 44733-2, BMP #### [facility] ([id number]) [address], [address] [place] [address] COMPREHENSIVE METABOLIC PANE Heron 12-18-2024 Albumin [Mass/Vol] 3.1 g/dL Low 3.2-5.3 [facility] Comment on above: Performed By: #### C ASHWIN, , 2776-10, CBC #### [facility] ([id number]) [address], [address] [place] [address] ALP [Catalytic activity/Vol] 84 U/L Normal 39-130 [facility] Comment on above: Performed By: #### C ASHWIN, , 2776-10, CBC #### [facility] ([id number]) [address] [place] [address] ALT [Catalytic activity/Vol] 35 U/L High 0-31 [facility] Comment on above: Performed By: #### C ASHWIN, , 2776-10, CBC #### [facility] ([id number]) [address] [place] [address] Anion gap [Moles/Vol] 8 mmol/L Normal 5-15 [facility] Comment on above: Performed By: #### C ASHWIN, , 2776-10, CBC #### [facility] ([id number]) [address], [address] [place] [address] AST [Catalytic activity/Vol] 27 U/L Normal 0-41 [facility] Comment on above: Performed By: #### C ASHWIN, , 2776-10, CBC #### [facility] ([id number]) [address] [place] [address] Bilirubin [Mass/Vol] 0.5 mg/dL Normal 0.3-1.2 [facility] Comment on above: Performed By: #### C ASHWIN, , 2776-10, CBC #### [facility] ([id number]) [address] [place] [address] Calcium [Mass/Vol] 8.4 mg/dL Low 8.5-10.5 [facility] Comment on above: Performed By: #### C ASHWIN, , 2776-10, CBC #### [facility] ([id number]) [address] [place] [address] Chloride [Moles/Vol] 107 mmol/L Normal 98-109 [facility] Comment on above: Performed By: #### C ASHWIN, , 2776-10, CBC #### [facility] ([id number]) [address] [place] [address] CO2 [Moles/Vol] 23 mmol/L Normal 22-32 [facility] Comment on above: Performed By: #### C ASHWIN, , 2776-10, CBC #### [facility] ([id number]) [address] [place] [address] Creatinine [Mass/Vol] 1.03 mg/dL High 0.40-1.00 [facility] Comment on above: Result Comment: METH OD TRACEABLE TO IDMS STANDARD Performed By: #### C ASHWIN, , 2776-10, CBC #### [facility] ([id number]) [address] [place] [address] GFR/1.73 sq M.predicted among non-blacks MDRD (S/P/Bld) [Vol rate/Area] 60 mL/min/{1.73_m2} Normal >59 [facility] Comment on above: Result Comment: Reported eGFR is based on the CKD-EPI 1 equation that does not use a race coefficient. Performed By: #### C ASHWIN, , 2776-10, CBC #### [facility] ([id number]) [address], [address] [place] [address] Glucose [Mass/Vol] 156 mg/dL High 65-99 [facility] Comment on above: Performed By: #### C ASHWIN, , 2776-10, CBC #### [facility] ([id number]) [address], [address] [place] [address] Potassium [Moles/Vol] 3.9 mmol/L Normal 3.5-5.0 [facility] Comment on above: Performed By: #### C ASHWIN, 75703-2, 2777-1, CBC #### [facility] ([id number]) [address], [address] [place] [address] Protein [Mass/Vol] 5.9 g/dL Low 6.0-8.0 [facility] Comment on above: Performed By: #### C ASHWIN, 37879-4, 7-1, CBC #### [facility] ([id number]) [address], [address] [place] [address] Sodium [Moles/Vol] 138 mmol/L Normal 134-146 [facility] Comment on above: Performed By: #### C ASHWIN, 51110-0, 2776-, CBC #### [facility] ([id number]) [address], [address] [place] [address] Urea nitrogen [Mass/Vol] 21 mg/dL Normal 5-27 [facility] Comment on above: Performed By: #### C ASHWIN, 79473-6, 2777-1, CBC #### [facility] ([id number]) [address], [address] [place] [address] Comprehensive metabolic pane heron 12-18-2024 Albumin [Mass/Vol] 3.1 g/dL Low 3.2 - 5.3 g/dL [facility] ALP [Catalytic activity/Vol] 84 U/L 39 - 130 U/L [facility] ALT No additional P-5'-P [Catalytic activity/Vol] 35 U/L High 0 - 31 U/L [facility] Anion gap [Moles/Vol] 8 mmol/L 5 - 15 mmol/L [facility] AST [Catalytic activity/Vol] 27 U/L 0 - 41 U/L [facility] Bilirubin [Mass/Vol] 0.5 mg/dL 0.3 - 1 .2 mg/dL [facility] Calcium [Mass/Vol] 8.4 mg/dL Low 8.5 - 10. 5 mg/dL [facility] Chloride [Moles/Vol] 107 mmol/L 98 - 10 9 mmol/L [facility] CO2 [Moles/Vol] 23 mmol/L 22 - 32 mmol/L [facility] Creatinine [Mass/Vol] 1.03 mg/dL High 0.40 - 1.00 mg/dL [facility] Comment on above: METHOD TRACEABLE TO IDMA STANDARD eGFR (CKD-EPI)non-race dependent 60 - PINF [facility] Comment on above: Reported eGFR is based on the CKD-EPI 2020 equation that does not use a race coefficient. Glucose [Mass/Vol] 156 mg/dL High 65 - 99 mg/dL [facility] Interpretation and review of laboratory results Abnormal [facility] Potassium [Moles/Vol] 3.9 mmol/L 3.5 - 5.0 mmol/L [facility] Protein [Mass/Vol] 5.9 g/dL Low 6.0 - 8.0 g/dL [facility] Sodium [Moles/Vol] 138 mmol/L 134 - 146 mmol/L [facility] Urea nitrogen [Mass/Vol] 21 mg/dL 5 - 27 mg/dL [facility] HGBon 12-18-2024 Hematocrit (Bld) [Volume fraction] 25.2 % Low 35-47 [facility] Comment on above: Performed By: #### C PARK MAGAÑA, 74249-2, BMP #### [facility] ([id number]) [address], [address] [place] [address] Hemoglobin (Bld) [Mass/Vol] 8.1 g/dL Low 11.7-15.5 [facility] Comment on above: Performed By: #### C YASH MAGAÑAR, 27393-3, BMP #### [facility] ([id number]) [address], [address] [place] [address] MAGNESIUMon 12-18-2024 Magnesium [Mass/Vol] 2.0 mg/dL Normal 1.8-2.6 [facility] Comment on above: Performed By: #### C PARK MAGAÑA, 70315-8, BMP #### [facility] ([id number]) [address], [address] [place] [address] Magnesiumon 12-18-2024 Magnesium [Mass/Vol] 2 mg/dL 1.8 - 2 .6 mg/dL [facility] No Panel Informationon 12-18 [facility] PHOSPHORUSon 12-18-2024 Phosphate [Mass/Vol] 3.2 mg/dL Normal 2.4-4.9 [facility] Comment on above: Performed By: #### C PARK MAGAÑA, 67992-2, BMP #### [facility] ([id number]) [address], [address] [place] [address] Phosphoruson 12-18-2024 Phosphate [Mass/Vol] 3.2 mg/dL 2.4 - 4 .9 mg/dL [facility] BASIC METABOLIC PANLon 12-17 Anion gap [Moles/Vol] 8 mmol/L Normal 5-15 [facility] Comment on above: Performed By: #### Cody MAGAÑA, BMP #### [facility] ([id number]) [address], [address] [place] [address] Calcium [Mass/Vol] 8.4 mg/dL Low 8.5-10.5 [facility] Comment on above: Performed By: #### C GÓMEZ, BMP #### [facility] ([id number]) [address], [address] [place] [address] Chloride [Moles/Vol] 109 mmol/L Normal 98-109 [facility] Comment on above: Performed By: #### Cody MAGAÑA, BMP #### [facility] ([id number]) [address], [address] [place] [address] CO2 [Moles/Vol] 21 mmol/L Low 22-32 [facility] Comment on above: Performed By: #### C BCA, BMP #### [facility] ([id number]) [address], [address] [place] [address] Creatinine [Mass/Vol] 0.91 mg/dL Normal 0.40-1.00 [facility] Comment on above: Result Comment: METH OD TRACEABLE TO IDMS STANDARD Performed By: #### C BCA, BMP #### [facility] ([id number]) [address], [address] [place] [address] GFR/1.73 sq M.predicted among non-blacks MDRD (S/P/Bld) [Vol rate/Area] 69 mL/min/{1.73_m2} Normal >59 [facility] Comment on above: Result Comment: Reported eGFR is based on the CKD-EPI 2020 equation that does not use a race coefficient. Performed By: #### C BCA, BMP #### [facility] ([id number]) [address], [address] [place] [address] Glucose [Mass/Vol] 154 mg/dL High 65-99 [facility] Comment on above: Performed By: #### C BCA, BMP #### [facility] ([id number]) [address], [address] [place] [address] Potassium [Moles/Vol] 4.1 mmol/L Normal 3.5-5.0 [facility] Comment on above: Performed By: #### C BCA, BMP #### [facility] ([id number]) [address], [address] [place] [address] Sodium [Moles/Vol] 138 mmol/L Normal 134-146 [facility] Comment on above: Performed By: #### C BCA, BMP #### [facility] ([id number]) [address], [address] [place] [address] Urea nitrogen [Mass/Vol] 14 mg/dL Normal 5-27 [facility] Comment on above: Performed By: #### C BCA, BMP #### [facility] ([id number]) [address] [facility] [address] [place] [address] Basic Metabolic Panelon 12-07 Anion gap [Moles/Vol] 8 mmol/L 5 - 15 mmol/L [facility] Calcium [Mass/Vol] 8.4 mg/dL Low 8.5 - 10. 5 mg/dL [facility] Chloride [Moles/Vol] 109 mmol/L 98 - 10 9 mmol/L [facility] CO2 [Moles/Vol] 21 mmol/L Low 22 - 32 mmol/L [facility] Creatinine [Mass/Vol] 0.91 mg/dL 0.40 - 1.00 mg/dL [facility] Comment on above: METHOD TRACEABLE TO [facility] STANDARD eGFR (CKD-EPI)non-race dependent 69 - PINF [facility] Comment on above: Reported eGFR is based on the CKD-EPI 2020 equation that does not use a race coefficient. Glucose [Mass/Vol] 154 mg/dL High 65 - 99 mg/dL [facility] Interpretation and review of laboratory results Abnormal [facility] Potassium [Moles/Vol] 4.1 mmol/L 3.5 - 5.0 mmol/L [facility] Sodium [Moles/Vol] 138 mmol/L 134 - 146 mmol/L [facility] Urea nitrogen [Mass/Vol] 14 mg/dL 5 - 27 mg/dL [facility] CBC AND AUTO DIFFon 12-18-19 25 ABSOLUTE BASOPHIL 0.0 X10E9/L Normal 0.0-0.2 [facility] Comment on above: Performed By: #### C BCA, BMP #### [facility] ([id number]) [address] [facility] [place] [address] ABSOLUTE NEUTROPHIL 9.5 X10E9/L High 1.5-6.6 [facility] Comment on above: Performed By: #### Cody BCA, BMP #### [facility] ([id number]) [address], [address] [place] [address] Basophils/100 WBC (Bld) 0.4 % Normal [facility] Comment on above: Performed By: #### C GÓMEZ, BMP #### [facility] ([id number]) [address], [address] [place] [address] Eosinophils (Bld) [#/Vol] 0.0 10*3/uL Normal 0.0-0.4 [facility] Comment on above: Performed By: #### C GÓMEZ, BMP #### [facility] ([id number]) [address], [address] [place] [address] Eosinophils/100 WBC (Bld) 0.3 % Normal [facility] Comment on above: Performed By: #### C GÓMEZ, BMP #### [facility] ([id number]) [address], [address] [place] [address] Erythrocyte distribution width (RBC) [Ratio] 16.1 % High 11.5-15.0 [facility] Comment on above: Performed By: #### C GÓMEZ, BMP #### [facility] ([id number]) [address], [address] [place] [address] Hematocrit (Bld) [Volume fraction] 24.0 % Low 35-47 [facility] Comment on above: Performed By: #### C GÓMEZ, BMP #### [facility] ([id number]) [address] [address] [place] [address] Hemoglobin (Bld) [Mass/Vol] 7.6 g/dL Low 11.7-15.5 [facility] Comment on above: Performed By: #### C GÓMEZ, BMP #### [facility] ([id number]) [address], [address] [place] [address] Lymphocytes (Bld) [#/Vol] 1.0 10*3/uL Normal 1.0-3.5 [facility] Comment on above: Performed By: #### C BCA, BMP #### [facility] ([id number]) [address], [address] [place] [address] Lymphocytes/100 WBC (Bld) 9.1 % Normal [facility] Comment on above: Performed By: #### C BCA, BMP #### [facility] ([id number]) [address] [place] [address] MCH (RBC) [Entitic mass] 19.1 pg Low 27-34 [facility] Comment on above: Performed By: #### C GÓMEZ, BMP #### [facility] ([id number]) [address], [address] [place] [address] MCHC (RBC) [Mass/Vol] 31.6 g/dL Low 32-36 [facility] Comment on above: Performed By: #### C GÓMEZ, BMP #### [facility] ([id number]) [address], [address] [place] [address] MCV (RBC) [Entitic vol] 60 fL Low 80-100 [facility] Comment on above: Performed By: #### C BCA, BMP #### [facility] ([id number]) [address] [place] [address] Monocytes (Bld) [#/Vol] 0.3 10*3/uL Normal 0-0.9 [facility] Comment on above: Performed By: #### C BCA, BMP #### [facility] ([id number]) [address], [address] [place] [address] Monocytes/100 WBC (Bld) 2.8 % Normal [facility] Comment on above: Performed By: #### C BCA, BMP #### [facility] ([id number]) [address], [address] [place] [address] Neutrophils/100 WBC (Bld) 87.4 % Normal [facility] Comment on above: Performed By: #### C GÓMEZ, BMP #### [facility] ([id number]) [address], [address] [place] [address] OVALOCYTE 2+ Abnormal NONE [facility] Comment on above: Performed By: #### C BCA, BMP #### [facility] ([id number]) [address], [address] [place] [address] Platelet mean volume (Bld) [Entitic vol] 8.1 fL Normal 7-12 [facility] Comment on above: Performed By: #### C GÓMEZ, BMP #### [facility] ([id number]) [address] [place] [address] Platelets (Bld) [#/Vol] 288 10*3/uL Normal 150-450 [facility] Comment on above: Performed By: #### C GÓMEZ, BMP #### [facility] ([id number]) [address] [place] [address] POLYCHROMASIA 1+ Abnormal NONE [facility] Comment on above: Performed By: #### C GÓMEZ, BMP #### [facility] ([id number]) [address] [place] [address] RBC COUNT 3.98 X10E12/L Normal 3.80-5.20 [facility] Comment on above: Performed By: #### C BCA, BMP #### [facility] ([id number]) [address], [address] [place] [address] WBC (Bld) [#/Vol] 10.9 10*3/uL Normal 4.0-11.0 [facility] Comment on above: Performed By: #### C GÓMEZ, BMP #### [facility] ([id number]) [address], [address] [place] [address] CBC auto differentialon 03-5 Basophils (Bld) [#/Vol] 0 10*3/uL [facility] Basophils/100 WBC (Bld) 0.4 % [facility] Eosinophils (Bld) [#/Vol] 0 10*3/uL [facility] Eosinophils/100 WBC (Bld) 0.3 % [facility] Erythrocyte distribution width (RBC) [Ratio] 16.1 % High 11.5 - 15.0 % [facility] Hematocrit (Bld) [Volume fraction] 24 % Low 35 - 47 % [facility] Hemoglobin (Bld) [Mass/Vol] 7.6 g/dL Low 11.7 - 15.5 g/dL [facility] Interpretation and review of laboratory results Abnormal [facility] Lymphocytes (Bld) [#/Vol] 1 10*3/uL [facility] Lymphocytes/100 WBC (Bld) 9.1 % [facility] MCH (RBC) [Entitic mass] 19.1 pg Low 27 - 34 pg [facility] MCHC (RBC) [Mass/Vol] 31.6 g/dL Low 32 - 36 g/dL [facility] MCV (RBC) [Entitic vol] 60 fL Low 80 - 100 fL [facility] Monocytes (Bld) [#/Vol] 0.3 10*3/uL [facility] Monocytes/100 WBC (Bld) 2.8 % [facility] Neutrophils (Bld) [#/Vol] 9.5 10*3/uL High [facility] Neutrophils/100 WBC (Bld) 87.4 % [facility] Ovalocytes LM Ql (Bld) 2+ Abnormal NONE^NONE [facility] Platelet mean volume (Bld) [Entitic vol] 8.1 fL 7 - 12 fL [facility] Platelets (Bld) [#/Vol] 288 10*3/uL [facility] Polychromasia LM Ql (Bld) 1+ Abnormal NONE^NONE [facility] RBC (Bld) [#/Vol] 3.98 10*6/uL [facility] WBC corrected for nucl RBC Auto (Bld) [#/Vol] 10.9 [facility] Ionized magnesiumon 12-18-19 25 Magnesium Ionized ISE (Bld) [Moles/Vol] 0.5 mmol/L 0.45 - 0.74 mmol/L [facility] Comment on above: NEW REFERENCE RANGE Magnesium Ionized ISE (Bld) [Moles/Vol]on 12-17-2024 [facility] Magnesium [Moles/Vol] 0.50 mmol/L Normal 0.45-0.74 [facility] Comment on above: Result Comment: NEW REFERENCE RANGE Performed By: #### 7 3572-0 #### [facility] ([id number]) [address], [address] [place] [address] RFA Guidance for vascular ac cess of Vesselon 12-17-2024 Please refer to the vascular OP note for a dictation on this exam. [facility] Antibody IDon 12-13-2024 Antibody ID Detected [facility] Complete Antibody Screenon 0 12-13-2024 [facility] - Blood bankon Rh Nom (Bld) Positive [place] No Panel Informationon 12-13 ABO O [facility] APTTon 12-12-2024 aPTT Coag (PPP) [Time] 29 s [facility] BASIC METABOLIC PANLon 12-12 Anion gap [Moles/Vol] 11 mmol/L Normal 5-15 [facility] Comment on above: Performed By: #### C GÓMEZ, PINR, 47571-2, BMP #### [facility] ([id number]) [address], [address] [place] [address] Calcium [Mass/Vol] 9.5 mg/dL Normal 8.5-10.5 [facility] Comment on above: Performed By: #### C BCA, PINR, 09437-5, BMP #### [facility] ([id number]) [address], [address] [place] [address] Chloride [Moles/Vol] 105 mmol/L Normal 98-109 [facility] Comment on above: Performed By: #### C GÓMEZ PINR, 07105-9, BMP #### [facility] ([id number]) [address], [address] [place] [address] CO2 [Moles/Vol] 23 mmol/L Normal 22-32 [facility] Comment on above: Performed By: #### C GÓMEZ PINR, 68506-0, BMP #### [facility] ([id number]) [address], [address] [place] [address] Creatinine [Mass/Vol] 1.03 mg/dL High 0.40-1.00 [facility] Comment on above: Result Comment: METH OD TRACEABLE TO IDMS STANDARD Performed By: #### C GÓMEZ PINWalker, 75264-7, BMP #### [facility] ([id number]) [address] [place] [address] GFR/1.73 sq M.predicted among non-blacks MDRD (S/P/Bld) [Vol rate/Area] 60 mL/min/{1.73_m2} Normal >59 [facility] Comment on above: Result Comment: Reported eGFR is based on the CKD-EPI 2020 equation that does not use a race coefficient. Performed By: #### C GÓMEZ PINR, 85299-8, BMP #### [facility] ([id number]) [address], [address] [place] [address] Glucose [Mass/Vol] 107 mg/dL High 65-99 [facility] Comment on above: Performed By: #### C GÓMEZ PINR, 60402-2, BMP #### [facility] ([id number]) [address], [address] [place] [address] Potassium [Moles/Vol] 3.5 mmol/L Normal 3.5-5.0 [facility] Comment on above: Performed By: #### C BCA PINR, 94419-5, BMP #### [facility] ([id number]) [address], [address] [place] [address] Sodium [Moles/Vol] 139 mmol/L Normal 134-146 [facility] Comment on above: Performed By: #### C BCA, PINR, 86748-3, BMP #### [facility] ([id number]) [address] [place] [address] Urea nitrogen [Mass/Vol] 16 mg/dL Normal 5-27 [facility] Comment on above: Performed By: #### C BCA, PINR, 69786-6, BMP #### [facility] ([id number]) [address], [address] [place] [address] Basic Metabolic Panelon 03-0 Anion gap [Moles/Vol] 11 mmol/L 5 - 15 mmol/L [facility] Calcium [Mass/Vol] 9.5 mg/dL 8.5 - 10. 5 mg/dL [facility] Chloride [Moles/Vol] 105 mmol/L 98 - 10 9 mmol/L [facility] CO2 [Moles/Vol] 23 mmol/L 22 - 32 mmol/L [facility] Creatinine [Mass/Vol] 1.03 mg/dL High 0.40 - 1.00 mg/dL [facility] Comment on above: METHOD TRACEABLE TO IDMA STANDARD eGFR (CKD-EPI)non-race dependent 60 - PINF [facility] Comment on above: Reported eGFR is based on the CKD-EPI 2020 equation that does not use a race coefficient. Glucose [Mass/Vol] 107 mg/dL High 65 - 99 mg/dL [facility] Interpretation and review of laboratory results Abnormal [facility] Potassium [Moles/Vol] 3.5 mmol/L 3.5 - 5.0 mmol/L [facility] Sodium [Moles/Vol] 139 mmol/L 134 - 146 mmol/L [facility] Urea nitrogen [Mass/Vol] 16 mg/dL 5 - 27 mg/dL [facility] CBC AND AUTO DIFFon 03-06-20 25 ABSOLUTE BASOPHIL 0.1 X10E9/L Normal 0.0-0.2 [facility] Comment on above: Performed By: #### PARK Ross BCA, 79274-9, BMP #### [facility] ([id number]) [address], [address] [place] [address] ACANTHOCYTE 1+ Abnormal NONE [facility] Comment on above: Performed By: #### PARK Ross BCA, 43314-9, BMP #### [facility] ([id number]) [address], [address] [place] [address] Band form neutrophils/100 WBC (Bld) 1.0 % Normal [facility] Comment on above: Performed By: #### PARK Ross BCA, 53359-0, BMP #### [facility] ([id number]) [address], [address] [place] [address] Basophils/100 WBC (Bld) 1.0 % Normal [facility] Comment on above: Performed By: #### PARK Ross BCA, 96561-7, BMP #### [facility] ([id number]) [address] [place] [address] Erythrocyte distribution width (RBC) [Ratio] 16.6 % High 11.5-15.0 [facility] Comment on above: Performed By: #### PARK Ross BCA, 95407-9, BMP #### [facility] ([id number]) [address], [address] [place] [address] Hematocrit (Bld) [Volume fraction] 30.2 % Low 35-47 [facility] Comment on above: Performed By: #### Cody MAGAÑA PINR, 70683-8, BMP #### [facility] ([id number]) [address] [place] [address] Hemoglobin (Bld) [Mass/Vol] 9.7 g/dL Low 11.7-15.5 [facility] Comment on above: Performed By: #### C GÓMEZ PINR, 45737-0, BMP #### [facility] ([id number]) [address] [place] [address] Lymphocytes (Bld) [#/Vol] 2.5 10*3/uL Normal 1.0-3.5 [facility] Comment on above: Performed By: #### C GÓMEZ PINR, 13874-4, BMP #### [facility] ([id number]) [address] [facility] [address] [place] [address] Lymphocytes/100 WBC (Bld) 26.7 % Normal [facility] Comment on above: Performed By: #### C GÓMEZ, PINR, 13516-1, BMP #### [facility] ([id number]) [address] [place] [address] MCH (RBC) [Entitic mass] 19.7 pg Low 27-34 [facility] Comment on above: Performed By: #### Cody MAGAÑA PINR, 84869-8, BMP #### [facility] ([id number]) [address] [place] [address] MCHC (RBC) [Mass/Vol] 32.2 g/dL Normal 32-36 [facility] Comment on above: Performed By: #### Cody MAGAÑA PINR, 41417-8, BMP #### [facility] ([id number]) [address] [place] [address] MCV (RBC) [Entitic vol] 61 fL Low 80-100 [facility] Comment on above: Performed By: #### Cody MAGAÑA, PINR, 32236-9, BMP #### [facility] ([id number]) [address] [place] [address] Monocytes (Bld) [#/Vol] 0.6 10*3/uL Normal 0-0.9 [facility] Comment on above: Performed By: #### C GÓMEZ, PINR, 55182-4, BMP #### [facility] ([id number]) [address] [place] [address] Monocytes/100 WBC (Bld) 6.7 % Normal [facility] Comment on above: Performed By: #### C GÓMEZ, PINR, 89633-6, BMP #### [facility] ([id number]) [address] [place] [address] Neutrophils (Bld) [#/Vol] 6.2 10*3/uL Normal 1.5-6.6 [facility] Comment on above: Performed By: #### C GÓMEZ, PINR, 61245-3, BMP #### [facility] ([id number]) [address] [place] [address] OVALOCYTE 1+ Abnormal NONE [facility] Comment on above: Performed By: #### C GÓMEZ, PINR, 76336-4, BMP #### [facility] ([id number]) [address] [place] [address] Platelet mean volume (Bld) [Entitic vol] 9.0 fL Normal 7-12 [facility] Comment on above: Performed By: #### C GÓMEZ, PINR, 38196-8, BMP #### [facility] ([id number]) [address] [place] [address] Platelets (Bld) [#/Vol] 364 10*3/uL Normal 150-450 [facility] Comment on above: Performed By: #### C GÓMEZ, PINR, 69759-8, BMP #### [facility] ([id number]) [address], [address] [place] [address] POLYCHROMASIA 1+ Abnormal NONE [facility] Comment on above: Performed By: #### C GÓMEZ, PINR, 77378-1, BMP #### [facility] ([id number]) [address], [address] [place] [address] RBC COUNT 4.95 X10E12/L Normal 3.80-5.20 [facility] Comment on above: Performed By: #### Cody MAGAÑA, PINR, 39178-9, BMP #### [facility] ([id number]) [address], [address] [place] [address] SEG NEUTROPHIL 64.6 % Normal [facility] Comment on above: Performed By: #### C GÓMEZ, PINR, 05118-5, BMP #### [facility] ([id number]) [address], [address] [place] [address] WBC (Bld) [#/Vol] 9.4 10*3/uL Normal 4.0-11.0 [facility] Comment on above: Performed By: #### Cody MAGAÑA, PINR, 77572-7, BMP #### [facility] ([id number]) [address], [address] [place] [address] CBC auto differentialon 03-0 Acanthocytes LM Ql (Bld) 1+ Abnormal NONE^NONE [facility] Band form neutrophils/100 WBC (Bld) 1 % [facility] Basophils (Bld) [#/Vol] 0.1 10*3/uL [facility] Basophils/100 WBC (Bld) 1 % [facility] Erythrocyte distribution width (RBC) [Ratio] 16.6 % High 11.5 - 15.0 % [facility] Hematocrit (Bld) [Volume fraction] 30.2 % Low 35 - 47 % [facility] Hemoglobin (Bld) [Mass/Vol] 9.7 g/dL Low 11.7 - 15.5 g/dL [facility] Interpretation and review of laboratory results Abnormal [facility] Lymphocytes (Bld) [#/Vol] 2.5 10*3/uL [facility] Lymphocytes/100 WBC (Bld) 26.7 % [facility] MCH (RBC) [Entitic mass] 19.7 pg Low 27 - 34 pg [facility] MCHC (RBC) [Mass/Vol] 32.2 g/dL 32 - 36 g/dL [facility] MCV (RBC) [Entitic vol] 61 fL Low 80 - 100 fL [facility] Monocytes (Bld) [#/Vol] 0.6 10*3/uL [facility] Monocytes/100 WBC (Bld) 6.7 % [facility] Neutrophils (Bld) [#/Vol] 6.2 10*3/uL [facility] Ovalocytes LM Ql (Bld) 1+ Abnormal NONE^NONE [facility] Platelet mean volume (Bld) [Entitic vol] 9 fL 7 - 12 fL [place] Platelets (Bld) [#/Vol] 364 10*3/uL [facility] Polychromasia LM Ql (Bld) 1+ Abnormal NONE^NONE [facility] RBC (Bld) [#/Vol] 4.95 10*6/uL [facility] Segmented neutrophils/100 WBC (Bld) 64.6 % [facility] WBC corrected for nucl RBC Auto (Bld) [#/Vol] 9.4 [facility] ECG 12 leadon 12-12-2024 TRACEMASTERVUE [facility] NUC STRESS LEXISCANon 2024 NUC STRESS [...] Barkley MD on 12/12/2024 10:17 AM Normal [facility] No Panel Informationon 12-12 [facility] PROTIME AND INRon 12-12-2024 INR Coag (PPP) [Relative time] 1.0 {INR} Normal 0.9-1.2 [facility] Comment on above: Performed By: #### C PARK MAGAÑA, 00545-6, BMP #### [facility] ([id number]) [address], [address] [place] [address] PT Coag (PPP) [Time] 11.2 s Normal 9.8-13.2 [facility] Comment on above: Performed By: #### C PARK MAGAÑA, 21185-5, BMP #### [facility] ([id number]) [address], [address] [place] [address] Protime-INRon 12-12-2024 INR Coag (PPP) [Relative time] 1 {INR} [facility] PT Coag (PPP) [Time] 11.2 s [facility] URINALYSISon 12-12-2024 Bilirubin Ql (U) Negative Normal NEG [facility] Comment on above: Performed By: #### U A #### [facility] ([id number]) [address], [address] [place] [address] Color (U) YELLOW Normal YELLOW [facility] Comment on above: Performed By: #### U A #### [facility] ([id number]) [address], [address] [place] [address] BLOOD/HGB Negative Normal NEG [facility] Comment on above: Performed By: #### U A #### [facility] ([id number]) [address] [place] [address] Glucose Ql (U) Negative Normal NEG [facility] Comment on above: Performed By: #### U A #### [facility] ([id number]) [address], [address] [place] [address] Ketones Ql (U) Negative Normal NEG [facility] Comment on above: Performed By: #### U A #### [facility] ([id number]) [address], [address] [place] [address] Leukocyte esterase Test strip Ql (U) Small Abnormal NEG [facility] Comment on above: Performed By: #### U A #### [facility] ([id number]) [address], [address] [place] [address] MUCOUS PRESENT Abnormal NONE [facility] Comment on above: Performed By: #### U A #### [facility] ([id number]) [address], [address] [place] [address] Nitrite Ql (U) Negative Normal NEG [facility] Comment on above: Performed By: #### U A #### [facility] ([id number]) [address], [address] [place] [address] pH (U) 6.0 [pH] Normal 5.0-8.5 [facility] Comment on above: Performed By: #### U A #### [facility] ([id number]) [address], [address] [place] [address] Protein Ql (U) Negative Normal NEG [facility] Comment on above: Performed By: #### U A #### [facility] ([id number]) [address] [place] [address] R.B.CELLS 1 /hpf Normal 0-5 [facility] Comment on above: Performed By: #### U A #### [facility] ([id number]) [address] [place] [address] Specific gravity (U) [Rel density] 1.008 Normal 1.003-1.035 [facility] Comment on above: Performed By: #### U A #### [facility] ([id number]) [address] [place] [address] SQUAMOUS EPITHELIUM 5 /hpf Normal 0-5 [facility] Comment on above: Performed By: #### U A #### [facility] ([id number]) [address], [address] [place] [address] TURBIDITY CLEAR Normal CLEAR [facility] Comment on above: Performed By: #### U A #### [facility] ([id number]) [address], [address] [place] [address] Urobilinogen (U) [Mass/Vol] mg/dL Normal <1.1 [facility] Comment on above: Performed By: #### U A #### [facility] ([id number]) [address] [place] [address] W.B.CELLS 7 /hpf High 0-5 [facility] Comment on above: Performed By: #### U A #### [facility] ([id number]) [address], [address] [place] [address] Urinalysison 12-12-2024 Epithelial cells Auto (Urine sed) [#/Area] 5 [facility] Glucose (U) [Mass/Vol] Negative Negative^Nega tive mg/dL [facility] Hemoglobin Auto test strip Ql (U) Negative Negative^Nega tive [facility] Interpretation and review of laboratory results Abnormal [facility] Ketones (U) [Mass/Vol] Negative Negative^Nega tive mg/dL [facility] Leukocyte esterase Auto test strip Ql (U) Small Abnormal Negative^Nega tive [facility] Mucus Ql (Urine sed) PRESENT Abnormal NONE^NONE [facility] Nitrite Auto test strip Ql (U) Negative Negative^Nega tive [facility] pH (U) 6 [pH] 5.0 - 8.5 [facility] Protein (U) [Mass/Vol] Negative Negative^Nega tive mg/dL [facility] RBC Auto (Urine sed) [#/Area] 1 [facility] Specific gravity Refractometry automated (U) [Rel density] 1.008 1.003 - 1.035 [facility] Turbidity Ql (U) CLEAR CLEAR^CLEAR [facility] Urobilinogen Qn (U) NINF [facility] WBC Auto (Urine sed) [#/Area] 7 High [facility] aPTT Coag (PPP) [Time]on aPTT Coag (Bld) [Time] 29 s Normal 26-37 [facility] Comment on above: Performed By: #### C BCA, PINR, 81636-0, BMP #### [facility] ([id number]) [address] [place] [address], [address] [place] [address] Office Visiton 12-02-2024 Follow-up visit [id number] Isaura Ruiz 1955 F Date Provider Department Center 12/02/2024 WILLIAM MCCURDY [facility] Family History Problem Relation Age of Onset No Known Problems Mother No Known Problems Father Family Status - Relation Status Age at Mother Father Level of Service:09021 [place] OFFICE/OUTPATIENT NEW MODERATE MDM 45 MINUTES Normal [facility] INSULINon 07-16-2022 Insulin 14.3 uIU/mL Normal 2.6-24.9 [facility] Comment on above: Performed By: #### I NSULIN #### [facility] [address] [address] [address] Lemuel Serrato CBC AUTO DIFFon 07-15-2022 BASO # 0.0 103/ul Normal 0.0-0.1 [facility] Comment on above: Performed By: #### C BC #### [facility] [address] [address] [address] Lemuel Serrato Basophils/100 WBC (Bld) 0.4 % Normal 0.2-2.0 [facility] Comment on above: Performed By: #### C BC #### [facility] [address] [place] [address] Dr. Lemuel Serrato EO # 0.2 103/ul Normal 0.0-0.7 [facility] Comment on above: Performed By: #### C BC #### [facility] [address] [place] [address] Dr. Lemuel Serrato Eosinophils/100 WBC (Bld) 2.7 % Normal 0.9-7.0 [facility] Comment on above: Performed By: #### C BC #### [facility] [address] [place] [address] Dr. Lemuel Serrato Erythrocyte distribution width (RBC) [Ratio] 15.9 % Critically high 11.0-15.0 [facility] Comment on above: Performed By: #### C BC #### [facility] [address] [place] [address] Dr. Lemuel Serrato Hematocrit (Bld) [Volume fraction] 30.5 % Critically low 36.0-48.0 [facility] Comment on above: Performed By: #### C BC #### [facility] [address] [place] [address] Dr. Lemuel Serrato Hemoglobin (Bld) [Mass/Vol] 9.0 g/dL Critically low 12.0-16.0 [facility] Comment on above: Performed By: #### C BC #### [facility] [address] [place] [address] Dr. Lemuel Serrato IG # 0.03 10e3/ul Normal 0.00-0.03 [facility] Comment on above: Performed By: #### C BC #### [facility] [address] [place] [address] Dr. Lemuel Serrato IG % 0.4 % Normal 0.0-0.5 [facility] Comment on above: Performed By: #### C BC #### [facility] [address] [address] [address] Lemuel Serrato LYMPH # 3.1 103/ul Normal 1.2-3.8 [facility] Comment on above: Performed By: #### C BC #### [facility] [address] [place] [address] Dr. Lemuel Serrato Lymphocytes/100 WBC (Bld) 41.8 % Normal 20.5-60.0 [facility] Comment on above: Performed By: #### C BC #### [facility] [address] [place] [address] Dr. Lemuel Serrato MANUAL DIFF REQ NO Normal [facility] Comment on above: Performed By: #### C BC #### [facility] [address] [place] [address] Dr. Lemuel Serrato MCH (RBC) [Entitic mass] 18.9 pg Critically low 26.7-34.0 [facility] Comment on above: Performed By: #### C BC #### [facility] [address] [place] [address] Dr. Lemuel Serrato MCHC (RBC) [Mass/Vol] 29.5 g/dL Critically low 29.9-35.2 [facility] Comment on above: Performed By: #### C BC #### [facility] [address] [place] [address] Dr. Lemuel Serrato MCV (RBC) [Entitic vol] 64.2 fL Critically low 81.0-99.0 [facility] Comment on above: Performed By: #### C BC #### [facility] [address] [place] [address] Dr. Lemuel Serrato MONO # 0.7 103/ul Normal 0.3-0.8 [facility] Comment on above: Performed By: #### C BC #### [facility] [address] [place] [address] Dr. Lemuel Serrato Monocytes/100 WBC (Bld) 8.8 % Normal 1.7-12.0 [facility] Comment on above: Performed By: #### C BC #### [facility] [address] [address] [address] Lemuel Serrato NEUT # 3.4 103/ul Normal 1.4-6.5 [facility] Comment on above: Performed By: #### C BC #### [facility] [address] [address] [address] Lemuel Serrato Neutrophils/100 WBC (Bld) 45.9 % Normal 43.0-75.0 [facility] Comment on above: Performed By: #### C BC #### [facility] [address] [place] [address] Dr. Lemuel Serrato Platelet mean volume (Bld) [Entitic vol] 9.8 fL Normal 9.5-13.5 [facility] Comment on above: Performed By: #### C BC #### [facility] [address] [place] [address] Dr. Lemuel Serrato PLT 263 103/ul Normal 150-450 [facility] Comment on above: Performed By: #### C BC #### [facility] [address] [place] [address] Dr. Lemuel Serrato RBC 4.75 106/ul Normal 4.20-5.40 [facility] Comment on above: Result Comment: SLIG HT MICROCYTOSIS 1+ POIKILOCYTOSIS 1+ OVALOCYTE SLIGHT ACANTHOCYTE Performed By: #### C BC #### [facility] [address] [place] [address] Dr. Lemuel Serrato WBC 7.4 103/ul Normal 4.0-11.0 [facility] Comment on above: Performed By: #### C BC #### [facility] [address] [place] [address] Dr. Lemuel Serrato FREE THYROXINE INDEX T7on FTI 2.15 Normal 1.30-4.50 [facility] Comment on above: Performed By: #### T 7, LIPID, TSH, CMP #### [facility] [address] [place] [address] Dr. Lemuel Serrato T3U 33.0 % Normal 30.0-39.0 [facility] Comment on above: Performed By: #### T 7, LIPID, TSH, CMP #### [facility] [address] [address] [address] Lemuel Serrato T4 [Mass/Vol] 6.50 ug/dL Normal 4.80-13.90 [facility] Comment on above: Performed By: #### T 7, LIPID, TSH, CMP #### [facility] [address] [address] [address] Lemuel Serrato GLYCOHEMOGLOBIN A1Con 2021 ADA RECOMMENDATION SEE BELOW Normal [facility] Comment on above: Result Comment: ADA RECOMMENDED LIMIT 4.0 - 6.0 ADA THERAPEUTIC TARGET < 7.0 ACTION SUGGESTED > 7.0 Performed By: #### A 1C #### [facility] [address] [address] [address] Lemuel Serrato Glucose [Mass/Vol] 137 mg/dL Normal [facility] Comment on above: Performed By: #### A 1C #### [facility] [address] [address] [address] Lemuel Serrato HbA1c (Bld) [Mass fraction] 6.4 % Critically high 4.5-6.2 [facility] Comment on above: Performed By: #### A 1C #### [facility] [address] [address] [address] Lemuel Serrato IRONon 07-15-2022 Iron [Mass/Vol] 70.0 ug/dL Normal 50.0-170.0 [facility] Comment on above: Performed By: #### I MARAL #### [facility] [address] [place] [address] Dr. Lemuel Serrato LIPID PROFILEon 07-15-2022 CHOL-HDL RATIO NORM SEE BELOW Normal [facility] Comment on above: Result Comment: 3.3 - 4.4 LOW RISK 4.4 - 7.1 AVERAGE RISK 7.1 - 11.0 MODERATE RISK >11.0 HIGH RISK Performed By: #### T 7, LIPID, TSH, CMP #### [facility] [address] [address] [address] Lemuel Serrato Cholesterol [Mass/Vol] 152 mg/dL Normal <=200 [facility] Comment on above: Performed By: #### T 7, LIPID, TSH, CMP #### [facility] [address] [address] [address] Lemuel Serrato Cholesterol in HDL [Mass/Vol] 32 mg/dL Critically low 40-60 [facility] Comment on above: Performed By: #### T 7, LIPID, TSH, CMP #### [facility] [address] [address] [address] Lemuel Serrato Cholesterol in LDL [Mass/Vol] 96.8 mg/dL Normal [facility] Comment on above: Performed By: #### T 7, LIPID, TSH, CMP #### [facility] [address] [address] [address] Lemuel Serrato Cholesterol.total/Ch olesterol in HDL [Mass ratio] 4.8 {ratio} Normal [facility] Comment on above: Performed By: #### T 7, LIPID, TSH, CMP #### [facility] [address] [address] [address] Lemuel Serrato HDL NORMAL > or = 60 mg/dl - LOW CARDIOVASCULAR RISK <40 mg/dl - HIGH CARDIOVASCULAR RISK Normal [facility] Comment on above: Performed By: #### T 7, LIPID, TSH, CMP #### [facility] [address] [address] [address] Lemuel Serrato LDL CALC NORMAL SEE BELOW Normal [facility] Comment on above: Result Comment: <100 mg/dl OPTIMAL 100 - 129 mg/dl NEAR OR ABOVE OPTIMAL 130 - 159 mg/dl BORDERLINE HIGH 160 - 189 mg/dl HIGH >190 mg/dl VERY HIGH Performed By: #### T 7, LIPID, TSH, CMP #### [facility] [address] [address] [address] Lemuel Serrato Triglyceride [Mass/Vol] 116 mg/dL Normal <=150 [facility] Comment on above: Performed By: #### T 7, LIPID, TSH, CMP #### [facility] [address] [address] [address] Lemuel Serrato VLDL CALC 23.2 mg/dL Normal [facility] Comment on above: Performed By: #### T 7, LIPID, TSH, CMP #### [facility] [address] [address] [address] Lemuel Serrato PROF 14(COMP METB)on 022 Albumin [Mass/Vol] 3.5 g/dL Normal 3.4-5.0 [facility] Comment on above: Performed By: #### T 7, LIPID, TSH, CMP #### [facility] [address] [address] [address] Lemuel Serrato Albumin/Globulin [Mass ratio] 0.9 {ratio} Normal [facility] Comment on above: Performed By: #### T 7, LIPID, TSH, CMP #### [facility] [address] [place] [address] Dr. Lemuel Serrato ALP [Catalytic activity/Vol] 91 U/L Normal 46-116 [facility] Comment on above: Performed By: #### T 7, LIPID, TSH, CMP #### [facility] [address] [place] [address] Dr. Lemuel Serrato ALT [Catalytic activity/Vol] 21 U/L Normal 14-59 [facility] Comment on above: Performed By: #### T 7, LIPID, TSH, CMP #### [facility] [address] [place] [address] Dr. Lemuel Serrato Anion gap [Moles/Vol] 10.1 mmol/L Normal [facility] Comment on above: Performed By: #### T 7, LIPID, TSH, CMP #### [facility] [address] [place] [address] Dr. Lemuel Serrato AST [Catalytic activity/Vol] 10 U/L Critically low 15-37 [facility] Comment on above: Performed By: #### T 7, LIPID, TSH, CMP #### [facility] [address] [place] [address] Dr. Lemuel Serrato Bilirubin [Mass/Vol] 0.3 mg/dL Normal 0.2-1.0 [facility] Comment on above: Performed By: #### T 7, LIPID, TSH, CMP #### [facility] [address] [address] [address] Lemuel Serrato Calcium [Mass/Vol] 8.6 mg/dL Normal 8.5-10.1 [facility] Comment on above: Performed By: #### T 7, LIPID, TSH, CMP #### [facility] [address] [place] [address] Dr. Lemuel Serrato Chloride [Moles/Vol] 107 mmol/L Normal 98-107 [facility] Comment on above: Performed By: #### T 7, LIPID, TSH, CMP #### [facility] [address] [place] [address] Dr. Lemuel Serrato CO2 [Moles/Vol] 25.8 mmol/L Normal 21.0-32.0 [facility] Comment on above: Performed By: #### T 7, LIPID, TSH, CMP #### [facility] [address] [place] [address] Dr. Lemuel Serrato Creatinine [Mass/Vol] 1.20 mg/dL Critically high 0.55-1.02 [facility] Comment on above: Performed By: #### T 7, LIPID, TSH, CMP #### [facility] [address] [place] [address] Dr. Lemuel Serrato EGFR-AF [place] 55 mL/min/1.73m2 Critically low >=60 [facility] Comment on above: Performed By: #### T 7, LIPID, TSH, CMP #### [facility] [address] [place] [address] Dr. Lemuel Serrato EGFR-NON AF [place] 45 mL/min/1.73m2 Critically low >=60 [facility] Comment on above: Performed By: #### T 7, LIPID, TSH, CMP #### [facility] [address] [place] [address] Dr. Lemuel Serrato Globulin (S) [Mass/Vol] 3.9 g/dL Normal [facility] Comment on above: Performed By: #### T 7, LIPID, TSH, CMP #### [facility] [address] [place] [address] Dr. Lemuel Serrato Glucose [Mass/Vol] 96 mg/dL Normal 74-106 [facility] Comment on above: Performed By: #### T 7, LIPID, TSH, CMP #### [facility] [address] [place] [address] Dr. Lemuel Serrato Potassium [Moles/Vol] 3.9 mmol/L Normal 3.5-5.1 [facility] Comment on above: Performed By: #### T 7, LIPID, TSH, CMP #### [facility] [address] [place] [address] Dr. Lemuel Serrato Protein [Mass/Vol] 7.4 g/dL Normal 6.4-8.2 [facility] Comment on above: Performed By: #### T 7, LIPID, TSH, CMP #### [facility] [address] [place] [address] Dr. Lemuel Serrato Sodium [Moles/Vol] 139 mmol/L Normal 136-145 [facility] Comment on above: Performed By: #### T 7, LIPID, TSH, CMP #### [facility] [address] [place] [address] Dr. Lemuel Serrato Urea nitrogen [Mass/Vol] 23.0 mg/dL Critically high 7.0-18.0 [facility] Comment on above: Performed By: #### T 7, LIPID, TSH, CMP #### [facility] [address] [place] [address] Dr. Lemuel Serrato Urea nitrogen/Creatinine [Mass ratio] 19.2 mg/mg Normal [facility] Comment on above: Performed By: #### T 7, LIPID, TSH, CMP #### [facility] [address] [place] [address] Dr. Lemuel Serrato TSHon 07-15-2022 TSH 2.220 uIU/mL Normal 0.358-3.740 [facility] Comment on above: Performed By: #### T 7, LIPID, TSH, CMP #### [facility] [address] [place] [address] Dr. Lemuel Serrato Vital Signs Date Time Vital Sign Value Performing Clinician Facility 01-02-2025 10:11-0400 Body temperature 97.7 [degF] Maldonado Prince MD Work Phone: [facility] 01-02-2025 10:11-0400 Diastolic blood pressure 72 mm[Hg] Maldonado Prince MD Work Phone: [facility] 01-02-2025 10:11-0400 Heart rate 90 /min Maldonado Prince MD Work Phone: [facility] 01-02-2025 10:11-0400 SaO2% (BldA) [Mass fraction] 97 % Maldonado Prince MD Work Phone: [facility] 01-02-2025 10:11-0400 Systolic blood pressure 128 mm[Hg] Maldonado Prince MD Work Phone: [facility] 12-19-2024 11:17-0400 Body temperature 97.7 [degF] Maldonado Prince MD Work Phone: [facility] 12-19-2024 11:17-0400 Diastolic blood pressure 57 mm[Hg] Maldonado Prince MD Work Phone: [facility] 12-19-2024 11:17-0400 Heart rate 83 /min Maldonado Prince MD Work Phone: [facility] 12-19-2024 11:17-0400 Respiratory rate 14 /min Maldonado Prince MD Work Phone: [facility] 12-19-2024 11:17-0400 SaO2% (BldA) [Mass fraction] 94 % Maldonado Prince MD Work Phone: [facility] 12-19-2024 11:17-0400 Systolic blood pressure 103 mm[Hg] Maldonado Prince MD Work Phone: [facility] 12-17-2024 20:25-0400 Body height 165.1 cm Maldonado Prince MD Work Phone: [facility] 12-17-2024 20:25-0400 Body mass index (BMI) [Ratio] 27.04 kg/m2 Maldonado Prince MD Work Phone: [facility] 12-17-2024 20:25-0400 Body weight 73.7 kg Maldonado Prince MD Work Phone: [facility] 12-12-2024 12:35-0500 Body height 165.1 cm Metro 1 [facility] 12-12-2024 12:35-0500 Body mass index (BMI) [Ratio] 27.29 kg/m2 Metro 1 [facility] 12-12-2024 12:35-0500 Body temperature 97.2 [degF] Metro 1 [facility] 12-12-2024 12:35-0500 Body weight 74.39 kg Metro 1 [facility] 12-12-2024 12:35-0500 Diastolic blood pressure 75 mm[Hg] Metro 1 [facility] 12-12-2024 12:35-0500 Heart rate 78 /min Metro 1 [facility] 12-12-2024 12:35-0500 Respiratory rate 20 /min Metro 1 [facility] 12-12-2024 12:35-0500 SaO2% (BldA) [Mass fraction] 97 % Metro 1 [facility] 12-12-2024 12:35-0500 Systolic blood pressure 181 mm[Hg] Metro 1 [facility] 11-28-2024 10:36-0500 Body height 165.1 cm Maldonado Prince MD Work Phone: [facility] 11-28-2024 10:36-0500 Body mass index (BMI) [Ratio] 27.46 kg/m2 Maldonado Prince MD Work Phone: [facility] 11-28-2024 10:36-0500 Body temperature 97.39 [degF] Maldonado Prince MD Work Phone: [facility] 11-28-2024 10:36-0500 Body weight 74.84 kg Maldonado Prince MD Work Phone: [facility] 11-28-2024 10:36-0500 Diastolic blood pressure 88 mm[Hg] Maldonado Prince MD Work Phone: [facility] 11-28-2024 10:36-0500 Heart rate 73 /min Maldonado Prince MD Work Phone: [facility] 11-28-2024 10:36-0500 Respiratory rate 16 /min Maldonado Prince MD Work Phone: [facility] 11-28-2024 10:36-0500 SaO2% (BldA) [Mass fraction] 98 % Maldonado Prince MD Work Phone: [facility] 11-28-2024 10:36-0500 Systolic blood pressure 168 mm[Hg] Maldonado Prince MD Work Phone: [facility] 07-08-2024 13:21-0400 Body height 165.1 cm [facility] 07-08-2024 13:21-0400 Body mass index (BMI) [Ratio] 26.1 kg/m2 [facility] 07-08-2024 13:21-0400 Body temperature 97.8 [degF] [facility] 07-08-2024 13:21-0400 Body weight 71.21 kg [facility] 07-08-2024 13:21-0400 Diastolic blood pressure 86 mm[Hg] [facility] 07-08-2024 13:21-0400 Heart rate 98 /min [facility] 07-08-2024 13:21-0400 Respiratory rate 18 /min [facility] 07-08-2024 13:21-0400 SaO2% (BldA) [Mass fraction] 97 % [facility] 07-08-2024 13:21-0400 Systolic blood pressure 163 mm[Hg] [facility] 09-07-2021 15:00-0500 Body height 165.1 cm Evonne Seo Other [facility] Other 09-07-2021 15:00-0500 Body mass index (BMI) [Ratio] 26.62 kg/m2 Evonne Seo Other [facility] Other 09-07-2021 15:00-0500 Body temperature 100.6 [degF] Evonne Seo Other [facility] Other 09-07-2021 15:00-0500 Body weight 72.58 kg Evonne Guerrantnyla Other [facility] Other 09-07-2021 15:00-0500 SaO2% (BldA) [Mass fraction] 96 % Evonne Guerrantnyla Other [facility] Other Encounters Encounter Date Encounter Type Care Provider Facility Start: 01-02-2025 End: 01-02-2025 Postop follow up visit related to original px Maldonado Pricne MD Work Phone: [facility] Comment on above: Critical limb ischem ia of both lower extremities (CMS-HCC) (Primary Dx) Start: 01-02-2025 End: 01-02-2025 ambulatory [facility] Start: 12-17-2024 ambulatory [facility] Start: 12-17-2024 End: 12-19-2024 Evaluation and management of inpatient Maldonado Prince MD Work Phone: [address] Acute Start: 12-12-2024 End: 12-12-2024 Patient encounter procedure [facility] Provider 1 [facility] Comment on above: Pre-op testing (Prim brissa Dx); 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); Claudication (CMS-HCC) Start: 12-12-2024 End: 12-12-2024 Patient encounter status [facility] Start: 12-12-2024 End: 12-12-2024 ambulatory [facility] Start: 12-12-2024 End: 12-12-2024 [facility] Start: 12-12-2024 End: 12-12-2024 ambulatory [facility] Start: 12-12-2024 Encounter for other preprocedural examination [facility] Start: 12-02-2024 End: 12-02-2024 ambulatory [facility] Start: 12-02-2024 End: 12-02-2024 Encounter for other preprocedural examination [facility] Start: 11-28-2024 End: 11-28-2024 Office outpatient new 45 minutes Maldonado Prince MD Work Phone: [facility] Comment on above: 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 ([facility]-HCC) (Primary Dx); Claudication ([facility]-HCC) Start: 11-28-2024 End: 11-28-2024 ambulatory [facility] Start: 11-18-2024 End: 11-18-2024 ambulatory Garrison Duenas MD Facility: [facility] Start: 11-04-2024 End: 11-04-2024 ambulatory Garrison Duenas MD Facility:[facility] Start: 10-21-2024 End: 10-21-2024 ambulatory Garrison Duenas MD Facility:[facility] Start: 07-08-2024 End: 07-08-2024 ambulatory [facility] Work Phone: Start: 07-08-2024 End: 07-08-2024 Patient encounter procedure [facility] Work Phone: Start: 11-04-2023 Refill Indu Cash MD Work Phone: [facility] Comment on above: PVD (peripheral vasc ular disease) ([facility]-HCC); Claudication ([facility]-HCC); Bilateral carotid bruits Start: 07-18-2022 Encounter for genera l adult medical examination without abnormal findings DR SKYE BOWMAN [facility] Start: 07-15-2022 End: 07-16-[address] SKYE BOWMAN Facility:[facility] Start: 07-15-2022 End: 07-16-2022 Encounter for general adult medical examination without abnormal findings DR SKYE BOWMAN Facility:[facility] Start: 06-27-2022 End: 06-28-2022 ambulatory TED CASTREJON Facility:[facility] Start: 09-07-2021 End: 09-07-2021 ambulatory Evonne Seo Other [employer] Other Start: 09-07-2021 Office outpatient vi sit 15 minutes Evonne Seo [facility] Start: 11-23-2017 End: 11-24-2017 Ambulatory DEFAULT PHYSICIAN Facility:[facility] Procedures Date Procedure Procedure Detail Performing Clinician Start: 12-19-2024 Comprehensive metabolic panel Lion Hooker Pawasarat DO Work Phone: Start: 12-18-2024 Blood count hematocrit Channing Frazier SHELVER-RELATIONS COORDINATOR Work Phone: Start: 12-18-2024 REPEATED ABORH Channing gaspar SHELVER-RELATIONS COORDINATOR Work Phone: Start: 12-18-2024 Comprehensive metabolic panel Lion Hooker Pawasarat DO Work Phone: Start: 12-17-2024 Basic metabolic pane l calcium total Lion M Pawasarat DO Work Phone: Start: 12-17-2024 Fluoroscopy up to 1 hour physician/qhp time Maldonado Prince MD Work Phone: Start: 12-17-2024 End: 12-17-2024 Revascularization iliac artery angiop 1st vsl Maldonado Prince MD Work Phone: Start: 12-17-2024 Adult depression scr eening assessment Maldonado Prince MD Work Phone: Start: 12-13-2024 [...] Treatment Date Care Activity Detail Author Start: 12-17-2025 Adult BMI Screening Adult BMI Screen ing [facility] Start: 12-17-2025 Depression Screening Depression Scre ening [facility] Start: 12-17-2025 Tobacco Screening Tobacco Screening [facility] Start: 12-12-2025 Adult BMI Screening Adult BMI Screen ing [facility] Start: 12-12-2025 Tobacco Screening Tobacco Screening [facility] Start: 11-28-2025 Adult BMI Screening Adult BMI Screen ing [facility] Start: 11-28-2025 Tobacco Screening Tobacco Screening [facility] Start: 01-02-2025 End: 01-02-2026 US.doppler Extremity arteries - bilateral for physiologic artery study Vas art doppler lwr bilat mult lev/PVR Vascular Ultrasound Routine Critical limb ischemia of both lower extremities (CMS-HCC) Expected: 01/02/2025, Expires: 01/02/2026 [facility] Work Phone: Comment on above: Expected: 01/02/2025 , Expires: 01/02/2026 Start: 01-02-2025 End: 01-02-2025 Patient encounter procedure 01/02/2025 10:20 AM EDT Office Visit [facility] Surgery [address] [place] [phone] Maldonado Prince MD [address] [place] [address] [facility] Start: 12-17-2024 End: 12-17-2024 Admission to same day surgery center 12/17/2024 10:30 AM EDT - 12/17/2024 1:00 PM EDT Surgery [address] [phone] Maldonado Prince MD [address] [facility] [address] [place] [address] ANGIOPLASTY ILIAC [93695 (CPT )] [facility] Comment on above: ANGIOPLASTY ILIAC [3 7220 (CPT )] Start: 12-17-2024 End: 12-17-2024 Revascularization iliac artery angiop 1st vsl [facility] Start: 12-17-2024 Subsequent hospital visit by physician 12/17/2024 10:30 AM EDT Hospital Encounter [address] [phone] Maldonado Prince MD [address] [place] [address] [facility] Start: 12-13-2024 End: 12-13-2024 Patient encounter procedure 12/13/2024 9:00 AM EST Office Visit [facility] [address] [place] [address] Kaushal Alcaraz MD [address] [place] [place], [place] [id number] [facility] Start: 06-09-2024 Influenza vaccination Influenza Vacc ine [facility] Start: 07-22-2023 Tobacco Screening Tobacco Screening [facility] Start: 06-09-2023 Influenza vaccination Influenza Vacc ine [facility] Start: 2022 Fall Risk Screening Fall Risk Screen ing [facility] Start: 12-29-2021 DTaP,Tdap and Td Vac cines (2 - Td or Tdap) DTaP,Tdap and Td Vaccines (2 - Td or Tdap) [facility] Start: 2007 Administration of va ricella zoster vaccine Zoster (Shingles) Vaccine (1 of 2) [facility] Start: 1975 Adult BMI Follow Up Plan Adult BMI Follow Up Plan [facility] Start: 1975 Adult BMI Screening Adult BMI Screen ing [facility] Start: 1969 Depression Screening Depression Scre ening [facility] Start: 1957 Tobacco Counseling Tobacco Counselin g [facility] Comprehensive metabo lic 2000 panel - Serum or Plasma Comprehensive metabolic panel Lab Routine Lab max of 3 days, Daily, for lab use only until discontinued starting 12/18/2024, 2 completed [facility] Comment on above: Lab max of 3 days, D aily, for lab use only until discontinued starting 12/18/2024, 2 completed Magnesium [Mass/volu me] in Serum or Plasma Magnesium Lab Routine Lab max of 3 days, Daily, for lab use only until discontinued starting 12/18/2024, 2 completed [facility] Comment on above: Lab max of 3 days, D aily, for lab use only until discontinued starting 12/18/2024, 2 completed Oxygen Therapy - [place] ntain SpO2: 90%; *SAWMILL WORKER Guidelines for O2: Yes; Document: \[employer]TapBookAuthor\epic\E PIC_Reference\Orders\Respir atory Care Guidelines\CPG Oxygen 2022.pdf Oxygen Therapy - Maintain SpO2: 90%; *SAWMILL WORKER Guidelines for O2: Yes; Document: \[employer]TapBookAuthor\e pic\EPIC_Reference\Ord ers\Respiratory Care Guidelines\CPG Oxygen 2022.pdf Respiratory Care Routine As Needed until discontinued starting 12/17/2024 [facility] Work Phone: Comment on above: As Needed until disc ontinued starting 12/17/2024 Phosphate [Mass/volu me] in Serum or Plasma Phosphorus Lab Routine Lab max of 3 days, Daily, for lab use only until discontinued starting 12/18/2024, 2 completed [facility] Comment on above: Lab max of 3 days, D aily, for lab use only until discontinued starting 12/18/2024, 2 completed End: 12-18-2024 Type and screen(includes indirect adrian) Type and screen(includes indirect adrian) Blood Bank Routine Once for 1 Occurrences starting 12/18/2024 until 12/18/2024 [facility] Work Phone: Comment on above: Once for 1 Occurrenc es starting 12/18/2024 until 12/18/2024 Immunizations Immunization Date Immunization Notes Care Provider Mike de dios 12-30-2011 tetanus and diphther ia toxoids, adsorbed, preservative free, for adult use (5 Lf of tetanus toxoid and 2 Lf of diphtheria toxoid) Maldonado Prince MD Work Phone: [facility] Payers Date Payer Category Payer Medicare 2022 Medicare [id number] 1959 Unknown [id number] 2.16. [id number] 1957 Unknown [id number] 2.16.84 [id number] 1957 Unknown [id number] 2.16.84 [id number] 1957 Unknown [id number] 2.16. [id number] 1957 Unknown [id number] 2.16. [id number] 1957 Unknown [id number] 2.16. [id number] 1957 Unknown [id number] 2.16. 840.1.163887.3.579.2.1286 1957 Unknown [id number] 2.16. [id number] 1957 Unknown [id number] 2.16. 840.1.237052.3.579.2.1286 1957 Unknown [id number] 2.16. 840.1.083496.3.579.2.1286 1957 Unknown [id number] 2.16. 840.1.855821.3.579.2.1286 1957 Unknown [id number] 2.16. 840.1.913931.3.579.2.1286 1957 Unknown [id number] 2.16. [id number] 1957 Unknown [id number] 2.16. [id number] 1957 Unknown [id number] 2.16. [id number] Unknown Social History Date Type Detail Facility Start: 07-22-2022 End: 01-02-2025 Sex Assigned At [facility] [employer] Other Start: 10-09-1966 Tobacco smoking stat us NEIS Smoker (finding) [facility] Start: 1955 Sex Assigned At Female F [facility] Start: 10-09-1966 End: 12-12-2024 Tobacco smoking status NEIS [facility]okes tobacco [facility] Start: 10-09-1966 History of tobacco use Cigarette Smo ker [facility] Start: 07-22-2022 End: 12-17-2024 Tobacco use and exposure Smokeless tobacco non-user [facility] Start: 07-22-2022 End: 12-18-2024 Alcohol intake Defer [facility] Start: 07-22-2022 End: 01-02-2025 History of Social function [facility]care Unknown [facility] Start: 1955 Sex Assigned At Not on file P [facility] Start: 05-14-2015 Sex Female (finding) [facility] Start: 12-17-2024 Tobacco smoking stat us NHIS Ex-smoker [facility] Has the electric, ga s, oil, or water company threatened to shut off services in your home in past 12Mo No [facility] How often to you hav e a drink containing alcohol? Never [facility] Medical Equipment Procedure Code Equipment Code Equipment Origin al Text Equipment Identifier Dates Graft Cv 60cm 7m m Thor [address] 2 Vlr Clgn [facility] - [id number] - [id number] Start: 12-17-2024 Comment on above: Description: FEMORAL -FEMORAL ARTERY Patch Vsc 8x.8cm [employer] Bvn Pricrd Tiss Strl Rpl [id number] - [id number] Start: 12-17-2024 Comment on above: Description: LEFT FE MORAL ARTERY Patch Vsc 8x.8cm [employer] Bvn Pricrd Tiss Strl Rpl [id number] - [id number] Start: 12-17-2024 Comment on above: Description: LEFT FE MORAL ARTERY Patch Vsc 8x.8cm [employer] Bvn Pricrd Tiss Strl Rpl [id number] - [id number] Start: 12-17-2024 Comment on above: Description: RIGHT F EMORAL ARTERY Goals Date Patient Goal Desired Activity /State Personal health goal Comment on above: Formatting of this n ote might be different from the original. Evaluation of progress towards goal: progressing towards discharge Functional Status Date Assessment Result Facility [facility] Clinical Notes 09-07-2021 to 01-02-2025 Maldonado Prince MD - 01/02/2025 10:20 AM EDTPT/OT/VETERINARY MEDICINE SCIENTIST - Summer Gomez, PT - 12/19/2024 1:37 PM EDTPT/OT/VETERINARY MEDICINE SCIENTIST - Summer Gomez, PT - 12/19/2024 1:37 PM Travis Navarrete MD - 12/18/2024 6:12 AM EDT Note Date & Type Note Facility 01-02-2025 History of Presen t illness Narrative Vascular surgery progress note She is status post bilateral iliofemoral endarterectomy and femorofemoral bypass and iliac angioplasty. She is doing very well. Her wound healing and moving in the right direction. Recommendation is to continue aspirin Plavix and cilostazol. Also recommended that she follow-up with the wound clinic. Will get PVR bypass graft duplex ultrasound and follow-up in about a month. Maldonado Prince MD documented in this encounter [facility] 12-19-2024 Progress note Formatting of t his note is different from the original. Physical Therapy PT Type of Visit: Discharge from Therapy (Spoke with DEVAN Squires. Pt is being discharged home with no PT needs. Will sign off.) [facility] [employer] Work Phone: 12-19-2024 Miscellaneous Notes Physical Therapy PT Type of Visit: Discharge from Therapy (Spoke with DEVAN Squires. Pt is being discharged home with no PT needs. Will sign off.) Problem: Pain Goal: Patient goal is pain score less than 4, able to rest, and participant in treatment plan as appropriate Description: INTERVENTIONS: 1. Encourage patient or legal auto service representative to report early pain and ask [...] per policy 9. Teach patient or legal auto service representative interventions for comforting Outcome: Progressing Note: [...] at the bedside 7. Instruct patient/ patient auto service representative about use of safety devices 8. Include patient/ patient auto service representative in decisions related to safety Outcome: [...] hygiene technique. 7. Identify and instruct patient/patient auto service representative in use of appropriate isolation precautions for identified infection/symptoms. 8. Provide and discuss with patient/patient auto service representative on educational MDRO sheet. 9. Encourage and monitor nutritional status daily and consult directional survey drafter if indicated. 10. Implement neutropenic guidelines as needed. Outcome: Progressing Note: Evaluation of progress towards goal: pt afebrile-cont to monitor Problem: Knowledge Deficit Goal: Patient/patient auto service representative demonstrates understanding of disease process, treatment [...] Description: INTERVENTIONS: 1. Encourage patient or legal auto service representative to report early pain and ask [...] per policy 9. Teach patient or legal auto service representative interventions for comforting Outcome: Progressing Note: [...] at the bedside 7. Instruct patient/ patient auto service representative about use of safety devices 8. Include patient/ patient auto service representative in decisions related to safety Outcome: [...] hygiene technique. 7. Identify and instruct patient/patient auto service representative in use of appropriate isolation precautions for identified infection/symptoms. 8. Provide and discuss with patient/patient auto service representative on educational MDRO sheet. 9. Encourage and monitor nutritional status daily and consult directional survey drafter if indicated. 10. Implement neutropenic guidelines as needed. Outcome: Progressing Note: Evaluation of progress towards goal: Vitals sign wnl. No sign of infection noted. Problem: Knowledge Deficit Goal: Patient/patient auto service representative demonstrates understanding of disease process, treatment plan, medications, and discharge instructions Description: INTERVENTIONS 1. Complete learning assessment and assess knowledge base 2. Provide teaching at level of understanding 3. Provide teaching via preferred learning method(s) Outcome: Progressing Note: Evaluation of progress towards goal: Patient/patient auto service representative demonstrates understanding of disease process, treatment [...] be free from fall Description: Interventions: 1. [place] to environment 2. Hourly rounds addressing the [...] non-skid footwear 11. Teach patient and patient auto service representative to maintain environment for safety and [...] (cane, walker) within reach 19. Request patient auto service representative bring adaptive equipment/mobility aids from home or obtain and provide as needed 20. Consult pharmacy regarding effects of med's affecting mobility, cognition, and alternatives 21. Obtain physician order for PT if risk factors associated with mobility are present 22. Obtain physician order for OT as appropriate 23. Utilize diversional activities 24. Educate patient and patient auto service representative how to maintain a safe environment during visitation times (notify nurse prior to leaving bedside) 25. Consider appropriateness of medical or non-vice president medical affairs 26. Set up voiding schedule as appropriate (every 2 hours) Outcome: Progressing Note: Evaluation of progress towards goal: Area free from hazards, patient call light within reach, will continue to monitor patient for risk of falls. Images from the original note were not included. DISCHARGE PLANNING NOTE Center Director Lead Teacher met with patient, introduced self, and explained role. Patient educated on safe discharge plan. 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 Consults: Vascular [...] medication assistance resources. PCP: SKYE BOWMAN MD [facility] PCP and pharmacy confirmed with [...] Description: INTERVENTIONS: 1. Encourage patient or legal auto service representative to report early pain and ask [...] per policy 9. Teach patient or legal auto service representative interventions for comforting Outcome: Progressing Note: [...] at the bedside 7. Instruct patient/ patient auto service representative about use of safety devices 8. Include patient/ patient auto service representative in decisions related to safety Outcome: [...] hygiene technique. 7. Identify and instruct patient/patient auto service representative in use of appropriate isolation precautions for identified infection/symptoms. 8. Provide and discuss with patient/patient auto service representative on educational MDRO sheet. 9. Encourage and monitor nutritional status daily and consult directional survey drafter if indicated. 10. Implement neutropenic guidelines as needed. Outcome: Progressing Note: Evaluation of progress towards goal: Patient VSS, afebrile, labs being monitored daily. Problem: Knowledge Deficit Goal: Patient/patient auto service representative demonstrates understanding of disease process, treatment [...] be free from fall Description: Interventions: 1. [place] to environment 2. Hourly rounds addressing the [...] non-skid footwear 11. Teach patient and patient auto service representative to maintain environment for safety and [...] (cane, walker) within reach 19. Request patient auto service representative bring adaptive equipment/mobility aids from home or obtain and provide as needed 20. Consult pharmacy regarding effects of med's affecting mobility, cognition, and alternatives 21. Obtain physician order for PT if risk factors associated with mobility are present 22. Obtain physician order for OT as appropriate 23. Utilize diversional activities 24. Educate patient and patient auto service representative how to maintain a safe environment during visitation times (notify nurse prior to leaving bedside) 25. Consider appropriateness of medical or non-vice president medical affairs 26. Set up voiding schedule as appropriate (every 2 hours) Outcome: Progressing Note: Evaluation of progress towards goal: Patient safety maintained. Hourly rounding, call light within reach. Problem: Pain Goal: Patient goal is pain score less than 4, able to rest, and participant in treatment plan as appropriate Description: INTERVENTIONS: 1. Encourage patient or legal auto service representative to report early pain and ask [...] per policy 9. Teach patient or legal auto service representative interventions for comforting Outcome: Progressing Note: [...] at the bedside 7. Instruct patient/ patient auto service representative about use of safety devices 8. Include patient/ patient auto service representative in decisions related to safety Outcome: [...] hygiene technique. 7. Identify and instruct patient/patient auto service representative in use of appropriate isolation precautions for identified infection/symptoms. 8. Provide and discuss with patient/patient auto service representative on educational MDRO sheet. 9. Encourage and monitor nutritional status daily and consult directional survey drafter if indicated. 10. Implement neutropenic guidelines as needed. Outcome: Progressing Note: Evaluation of progress towards goal: Vitals sign wnl. No sign of infection noted. Problem: Knowledge Deficit Goal: Patient/patient auto service representative demonstrates understanding of disease process, treatment plan, medications, and discharge instructions Description: INTERVENTIONS 1. Complete learning assessment and assess knowledge base 2. Provide teaching at level of understanding 3. Provide teaching via preferred learning method(s) Outcome: Progressing Note: Evaluation of progress towards goal: Patient/patient auto service representative demonstrates understanding of disease process, treatment [...] be free from fall Description: Interventions: 1. [place] to environment 2. Hourly rounds addressing the [...] non-skid footwear 11. Teach patient and patient auto service representative to maintain environment for safety and [...] (cane, walker) within reach 19. Request patient auto service representative bring adaptive equipment/mobility aids from home or obtain and provide as needed 20. Consult pharmacy regarding effects of med's affecting mobility, cognition, and alternatives 21. Obtain physician order for PT if risk factors associated with mobility are present 22. Obtain physician order for OT as appropriate 23. Utilize diversional activities 24. Educate patient and patient auto service representative how to maintain a safe environment during visitation times (notify nurse prior to leaving bedside) 25. Consider appropriateness of medical or non-vice president medical affairs 26. Set up voiding schedule as appropriate (every 2 hours) Outcome: Progressing Note: Evaluation of progress towards goal: Area free from hazards, patient call light within reach, will continue to monitor patient for risk of falls. Images from the original note were not included. [facility] [place] [facility] Operative Note DATE OF PROCEDURE: 12/17/2024 PATIENT NAME: Isaura Ruiz SURGEON: Surgeons and Role: * Maldonado Prince MD - Primary ASSISTANTS: Dr. Milo Thomas, Vascular Surgery Fellow STAFF: [employer] Primary: Carly Gamez RN [employer] Relief: Evonne Guzman RN Scrub Relief: KAREN [...] patch angioplasty bilaterally 2. Left to right zvagduz-ps-chhsyqw bypass 3. Right lower extremity angiogram 4. [...] Implant Name Type Inv. Item Serial No. Lease Examiner Lot No. LRB No. Used Action GRAFT CV 60CM 7MM THOR 2 PASS SW [facility]N [facility] [address] 2 VLR CLGN STR - [id number] - [id number] Graft GRAFT CV 60CM 7MM THOR 2 PASS SW [facility] 2 VLR CLGN STR [id number] Fan TV [id number] Bilateral 1 Implanted PATCH VSC 8X.8CM XENOSURE BVN PRICRD TISS STRL RPL [id number] - [id number] Graft PATCH VSC 8X.8CM XENOSURE BVN PRICRD TISS STRL RPL [id number] [employer] [id number] Left 1 Implanted PATCH VSC 8X.8CM XENOSURE BVN PRICRD TISS STRL RPL [id number] - [id number] Graft PATCH VSC 8X.8CM XENOSURE BVN PRICRD TISS STRL RPL [id number] [employer] [id number] Left 1 Implanted PATCH VSC 8X.8CM XENOSURE BVN PRICRD TISS STRL RPL [id number] - [id number] Graft PATCH VSC 8X.8CM XENOSURE BVN PRICRD TISS STRL RPL [id number] [employer] [id number] Right 1 Implanted HISTORY: The patient is [...] distally and performed iliofemoral endarterectomy bilaterally using Mumford elevator and obtaining good proximal and distal [...] thoracic aorta. We then placed a 6 [place] sheath and performed retrograde iliac angiogram. 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 Maldonado Prince MD, [facility] Vascular Surgery Images from the original note were not included. [facility] [place] [facility] Brief Op Note NAME: Isaura Ruiz : 1955 PROCEDURE DATE: 12/17/2024 SURGEON: Surgeons and Role: * Maldonado Prince MD - Primary ASSISTANTS: Milo Thomas MD, Vascular Surgery Fellow (PGY-7) Lion Almaraz DO MA, Vascular Surgery Fellow (PGY-6) STAFF: [employer] Primary: Carly Gamez RN [employer] Relief: Evonne Guzman RN Scrub Relief: Vasquez Nayak CST Scrub Person: [facility] [employer] Fellow: Milo Thomas [...] Implant Name Type Inv. Item Serial No. Lease Examiner Lot No. LRB No. Used Action GRAFT CV 60CM 7MM THOR 2 PASS SW [facility] 2 VLR CLGN STR - [id number] - [id number] Graft GRAFT CV 60CM 7MM THOR 2 PASS SW [facility]N [facility] 2 VLR CLGN STR [id number] Fan TV [id number] Bilateral 1 Implanted PATCH VSC 8X.8CM XENOSURE BVN PRICRD TISS STRL RPL [id number] - [id number] Graft PATCH VSC 8X.8CM XENOSURE BVN PRICRD TISS STRL RPL [id number] [employer] [id number] Left 1 Implanted PATCH VSC 8X.8CM XENOSURE BVN PRICRD TISS STRL RPL [id number] - [id number] Graft PATCH VSC 8X.8CM XENOSURE BVN PRICRD TISS STRL RPL [id number] [employer] [id number] Left 1 Implanted PATCH VSC 8X.8CM XENOSURE BVN PRICRD TISS STRL RPL [id number] - [id number] Graft PATCH VSC 8X.8CM XENOSURE BVN PRICRD TISS STRL RPL [id number] [employer] [id number] Right 1 Implanted ESTIMATED BLOOD LOSS: 150 [...] note/ clearance requested documented in this encounter [facility] 12-19-2024 Hospital course Narrative HOSPITAL DISCHARGE SUMMARY Patient ID: Isaura Ruiz Acct: [id number] Patient's PCP: SKYE BOWMAN MD Admit Date: 12/17/2024 Discharge Date: Length of Stay: 2 Days Admitting Physician: Maldonado Prince MD Discharge Physician: Maldonado Prince MD Discharge Diagnoses: Patient Active Problem List Diagnosis Date Noted Critical limb ischemia of both lower extremities ([facility]) 12/17/2024 Claudication ([facility]) 12/02/2024 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 Patient had bilateral femoral cutdowns with bilateral iliofemoral endarterectomy with a bovine angioplasty, gbhg-cx-zwjsd femoral to femoral bypass and right lower [...] 10:20 AM Maldonado Prince [facility] Follow[facility]up Information SKYE BOWMAN MD Follow up. Specialty: Family Medicine Contact information: [facility] [facility] [address] Scheduled Appointments Jan 02, 2025 10:20 AM (Arrive by 10:05 AM) POST OPERATION VISIT with Maldonado Prince MD [facility] ([facility]) [address] [place] [id number] At the time of your visit please be aware of the following COVID-19 information: If you develop a new cough, fever, or shortness of breath, please call before your appointment. Please plan to arrive at least 15 minutes earlier than your appointment time as screening and registration may take longer than anticipated. Please consider the [place] to pre-register and make your co-payment before [...] Frank 12/19/24 1328 documented in this encounter [facility] 12-19-2024 Plan of care note Problem: Pain Goal: Patient goal is pain score less than 4, able to rest, and participant in treatment plan as appropriate Description: INTERVENTIONS: 1. Encourage patient or legal auto service representative to report early pain and ask [...] per policy 9. Teach patient or legal auto service representative interventions for comforting Outcome: Progressing Note: [...] at the bedside 7. Instruct patient/ patient auto service representative about use of safety devices 8. Include patient/ patient auto service representative in decisions related to safety Outcome: [...] hygiene technique. 7. Identify and instruct patient/patient auto service representative in use of appropriate isolation precautions for identified infection/symptoms. 8. Provide and discuss with patient/patient auto service representative on educational MDRO sheet. 9. Encourage and monitor nutritional status daily and consult directional survey drafter if indicated. 10. Implement neutropenic guidelines as needed. Outcome: Progressing Note: Evaluation of progress towards goal: pt afebrile-cont to monitor Problem: Knowledge Deficit Goal: Patient/patient auto service representative demonstrates understanding of disease process, treatment [...] progress towards goal: pt going home today [facility] 12-19-2024 Progress note Formatting of t his [...] - Lorenza Mcdonnell RN 12/19/24 10:04 AM [facility] 12-19-2024 Plan of care note Problem: Pain Goal: Patient goal is pain score less than 4, able to rest, and participant in treatment plan as appropriate Description: INTERVENTIONS: 1. Encourage patient or legal auto service representative to report early pain and ask [...] per policy 9. Teach patient or legal auto service representative interventions for comforting Outcome: Progressing Note: [...] at the bedside 7. Instruct patient/ patient auto service representative about use of safety devices 8. Include patient/ patient auto service representative in decisions related to safety Outcome: [...] hygiene technique. 7. Identify and instruct patient/patient auto service representative in use of appropriate isolation precautions for identified infection/symptoms. 8. Provide and discuss with patient/patient auto service representative on educational MDRO sheet. 9. Encourage and monitor nutritional status daily and consult directional survey drafter if indicated. 10. Implement neutropenic guidelines as needed. Outcome: Progressing Note: Evaluation of progress towards goal: Vitals sign wnl. No sign of infection noted. Problem: Knowledge Deficit Goal: Patient/patient auto service representative demonstrates understanding of disease process, treatment plan, medications, and discharge instructions Description: INTERVENTIONS 1. Complete learning assessment and assess knowledge base 2. Provide teaching at level of understanding 3. Provide teaching via preferred learning method(s) Outcome: Progressing Note: Evaluation of progress towards goal: Patient/patient auto service representative demonstrates understanding of disease process, treatment [...] Score of =/> 25 [facility] Goal: Patient should be free from fall Description: Interventions: 1. [place] to environment 2. Hourly rounds addressing the [...] non-skid footwear 11. Teach patient and patient auto service representative to maintain environment for safety and [...] (cane, walker) within reach 19. Request patient auto service representative bring adaptive equipment/mobility aids from home or obtain and provide as needed 20. Consult pharmacy regarding effects of med's affecting mobility, cognition, and alternatives 21. Obtain physician order for PT if risk factors associated with mobility are present 22. Obtain physician order for OT as appropriate 23. Utilize diversional activities 24. Educate patient and patient auto service representative how to maintain a safe environment during visitation times (notify nurse prior to leaving bedside) 25. Consider appropriateness of medical or non-vice president medical affairs 26. Set up voiding schedule as appropriate (every 2 hours) Outcome: Progressing Note: Evaluation of progress towards goal: Area free from hazards, patient call light within reach, will continue to monitor patient for risk of falls. [facility] 12-18-2024 Progress note Formatting of t his note is different from the original. Images from the original note were not included. DISCHARGE PLANNING NOTE Center Director Lead Teacher met with patient, introduced self, and explained role. Patient educated on safe discharge plan. 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 Consults: Vascular [...] medication assistance resources. PCP: SKYE BOWMAN MD [facility] PCP and pharmacy confirmed with [...] - Lorenza Mcdonnell RN 12/18/24 11:48 AM [facility] 12-18-2024 Plan of care note Problem: Pain Goal: Patient goal is pain score less than 4, able to rest, and participant in treatment plan as appropriate Description: INTERVENTIONS: 1. Encourage patient or legal auto service representative to report early pain and ask [...] per policy 9. Teach patient or legal auto service representative interventions for comforting Outcome: Progressing Note: [...] at the bedside 7. Instruct patient/ patient auto service representative about use of safety devices 8. Include patient/ patient auto service representative in decisions related to safety Outcome: [...] hygiene technique. 7. Identify and instruct patient/patient auto service representative in use of appropriate isolation precautions for identified infection/symptoms. 8. Provide and discuss with patient/patient auto service representative on educational MDRO sheet. 9. Encourage and monitor nutritional status daily and consult directional survey drafter if indicated. 10. Implement neutropenic guidelines as needed. Outcome: Progressing Note: Evaluation of progress towards goal: Patient VSS, afebrile, labs being monitored daily. Problem: Knowledge Deficit Goal: Patient/patient auto service representative demonstrates understanding of disease process, treatment [...] be free from fall Description: Interventions: 1. [place] to environment 2. Hourly rounds addressing the [...] non-skid footwear 11. Teach patient and patient auto service representative to maintain environment for safety and [...] (cane, walker) within reach 19. Request patient auto service representative bring adaptive equipment/mobility aids from home or obtain and provide as needed 20. Consult pharmacy regarding effects of med's affecting mobility, cognition, and alternatives 21. Obtain physician order for PT if risk factors associated with mobility are present 22. Obtain physician order for OT as appropriate 23. Utilize diversional activities 24. Educate patient and patient auto service representative how to maintain a safe environment during visitation times (notify nurse prior to leaving bedside) 25. Consider appropriateness of medical or non-vice president medical affairs 26. Set up voiding schedule as appropriate (every 2 hours) Outcome: Progressing Note: Evaluation of progress towards goal: Patient safety maintained. Hourly rounding, call light within reach. [facility] 12-18-2024 History of Presen t illness Narrative Images from the original note were not included. [facility] [place] [facility] PROGRESS NOTE Subjective: Patient seen and examined. NAEON. Afebrile. VSS. She reported some mild pain [...] bovine patch angioplasty bilaterally, left to right ftyzqyc-mk-qfuqrws bypass, right lower extremity angiogram, left retrograde [...] DC planning Dr. Iliana Carter DO, MPH, [facility] documented in this encounter [facility] 12-18-2024 Plan of care note Problem: Pain Goal: Patient goal is pain score less than 4, able to rest, and participant in treatment plan as appropriate Description: INTERVENTIONS: 1. Encourage patient or legal auto service representative to report early pain and ask [...] per policy 9. Teach patient or legal auto service representative interventions for comforting Outcome: Progressing Note: [...] at the bedside 7. Instruct patient/ patient auto service representative about use of safety devices 8. Include patient/ patient auto service representative in decisions related to safety Outcome: [...] hygiene technique. 7. Identify and instruct patient/patient auto service representative in use of appropriate isolation precautions for identified infection/symptoms. 8. Provide and discuss with patient/patient auto service representative on educational MDRO sheet. 9. Encourage and monitor nutritional status daily and consult directional survey drafter if indicated. 10. Implement neutropenic guidelines as needed. Outcome: Progressing Note: Evaluation of progress towards goal: Vitals sign wnl. No sign of infection noted. Problem: Knowledge Deficit Goal: Patient/patient auto service representative demonstrates understanding of disease process, treatment plan, medications, and discharge instructions Description: INTERVENTIONS 1. Complete learning assessment and assess knowledge base 2. Provide teaching at level of understanding 3. Provide teaching via preferred learning method(s) Outcome: Progressing Note: Evaluation of progress towards goal: Patient/patient auto service representative demonstrates understanding of disease process, treatment [...] be free from fall Description: Interventions: 1. [place] to environment 2. Hourly rounds addressing the [...] non-skid footwear 11. Teach patient and patient auto service representative to maintain environment for safety and [...] (cane, walker) within reach 19. Request patient auto service representative bring adaptive equipment/mobility aids from home or obtain and provide as needed 20. Consult pharmacy regarding effects of med's affecting mobility, cognition, and alternatives 21. Obtain physician order for PT if risk factors associated with mobility are present 22. Obtain physician order for OT as appropriate 23. Utilize diversional activities 24. Educate patient and patient auto service representative how to maintain a safe environment during visitation times (notify nurse prior to leaving bedside) 25. Consider appropriateness of medical or non-vice president medical affairs 26. Set up voiding schedule as appropriate (every 2 hours) Outcome: Progressing Note: Evaluation of progress towards goal: Area free from hazards, patient call light within reach, will continue to monitor patient for risk of falls. [facility] 12-17-2024 Procedure note Images from the original note were not included. [facility] [place] [facility] Operative Note DATE OF PROCEDURE: 12/17/2024 PATIENT NAME: Isaura Ruiz SURGEON: Surgeons and Role: * Maldonado Prince MD - Primary ASSISTANTS: Dr. Milo Thomas, Vascular Surgery Fellow STAFF: [employer] Primary: Carly Gamez RN [employer] Relief: Evonne Guzman RN Scrub Relief: Vasquez Nayak [facility] Scrub Person: ST Yesica Fellow: Milo Thomas MD; Lion Almaraz, Scrub Orientee: ST Dianelys PRE-OP DIAGNOSIS: Peripheral arterial disease, chronic limb threatening ischemia of right lower extremity, right ischemic foot wounds, hypertension, hyperlipidemia, tobacco abuse POST-OP DIAGNOSIS: same PROCEDURE: 1. Bilateral femoral cutdowns with bilateral iliofemoral endarterectomy with bovine patch angioplasty bilaterally 2. Left to right uvsvqpf-kv-[id number] bypass 3. Right lower extremity angiogram 4. [...] Implant Name Type Inv. Item Serial No. Lease Examiner Lot No. LRB No. Used Action GRAFT CV 60CM 7MM THOR [address] [facility] [address] [facility] STR - [id number] - [id number] Graft GRAFT CV 60CM 7MM THOR [address] [facility] STR [id number] [employer] [id number] Bilateral 1 Implanted PATCH VSC 8X.8CM XENOSURE BVN PRICRD TISS STRL RPL [id number] - [id number] Graft PATCH VSC 8X.8CM XENOSURE BVN PRICRD TISS STRL RPL [id number] [facility] [id number] Left 1 Implanted PATCH VSC 8X.8CM XENOSURE BVN PRICRD TISS STRL RPL [id number] - [id number] Graft PATCH VSC 8X.8CM XENOSURE BVN PRICRD TISS STRL RPL [id number] [facility] [id number] Left 1 Implanted PATCH VSC 8X.8CM XENOSURE BVN PRICRD TISS STRL RPL [id number] - [id number] Graft PATCH VSC 8X.8CM XENOSURE BVN PRICRD TISS STRL RPL [id number] [employer] [id number] Right 1 Implanted HISTORY: The patient is [...] distally and performed iliofemoral endarterectomy bilaterally using Mumford elevator and obtaining good proximal and distal [...] thoracic aorta. We then placed a 6 [place] sheath and performed retrograde iliac angiogram. 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 Maldonado Prince MD, PRATIMA Vascular Surgery [facility] Work Phone: 12-17-2024 Procedure note Images from the original note were not included. [facility] [place] [facility] Service Brief Op Note NAME: Isaura Ruiz : 1955 PROCEDURE DATE: 12/17/2024 SURGEON: Surgeons and Role: * Maldonado Prince MD - Primary ASSISTANTS: Milo Thomas MD, Vascular Surgery Fellow (PGY-7) Lion Almaraz DO MA, Vascular Surgery Fellow (PGY-6) STAFF: [employer] Primary: Carly Gamez RN [employer] Relief: Evonne Guzman RN Scrub Relief: Vasquez Nayak [facility] Scrub Person: ST Yesica Fellow: Milo [...] Implant Name Type Inv. Item Serial No. Lease Examiner Lot No. LRB No. Used Action GRAFT CV 60CM 7MM THOR 2 PASS [address] [facility] - [id number] - [id number] Graft GRAFT CV 60CM 7MM THOR 2 [address] [facility] [id number] [employer] [id number] Bilateral 1 Implanted PATCH VSC 8X.8CM XENOSURE BVN PRICRD TISS STRL RPL [id number] - [id number] Graft PATCH VSC 8X.8CM XENOSURE BVN PRICRD TISS STRL RPL [id number] [employer] [id number] Left 1 Implanted PATCH VSC 8X.8CM XENOSURE BVN PRICRD TISS STRL RPL [id number] - [id number] Graft PATCH VSC 8X.8CM XENOSURE BVN PRICRD TISS STRL RPL [id number] [employer] [id number] Left 1 Implanted PATCH VSC 8X.8CM XENOSURE BVN PRICRD TISS STRL RPL [id number] - [id number] Graft PATCH VSC 8X.8CM XENOSURE BVN PRICRD TISS STRL RPL [id number] [employer] [id number] Right 1 Implanted ESTIMATED BLOOD LOSS: 150 mL TOTAL IVF: Please see anesthesia documentation FLUORO TIME: 2.3 min DOSE: 71.6 mGy TOTAL CONTRAST: 39 ml CONDITION: stable WOUND CLASS: clean FINDINGS: PULSE EXAM: monophasic right posterior tibial artery on Doppler See dictated procedure report for full details. Lion Almaraz DO MA, Vascular Surgery Fellow (PGY-6) [facility] Work Phone: 12-17-2024 Attending History and physical note HISTORY AND PHYSICAL INTERVAL NOTE: Isaura Ruiz 1955 [id number] H&P reviewed. The patient was examined and [...] ischemia of right lower extremity with gangrene ([facility]) - Primary Current Assessment & Plan I discussed with her the findings of the PVR and the CTA. She will need bilateral iliac stenting right lower extremity angiogram and intervention possible femorofemoral bypass. She will need cardiac risk stratification. Isaura was seen today for claudication. 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 While intending to generate a timely document that accurately reflects the content of the visit, no guarantee can be provided that every grammatical or spelling mistake has been or will be identified or corrected. Thank you for your understanding. [facility] 12-17-2024 History and physical note HISTORY AND PHYSICAL INTERVAL NOTE: Isaura Ruiz 1955 [id number] H&P reviewed. The patient was examined and [...] ischemia of right lower extremity with gangrene ([facility]) Claudication ([facility]) - [facility] [place], [place] Maldonado Prince MD, PRATIMA, RPVI, FSVS, FACS [facility] This note was created with the assistance of a speech recognition program. While intending to generate a timely document that accurately reflects the content of the visit, no guarantee can be provided that every grammatical or spelling mistake has been or will be identified or corrected. Thank you for your understanding. documented in this encounter [facility] 12-16-2024 Nurse Note Anesthesia review: Angioplasty/Fem Bypass: TTH: GA. Hx of HTN: GERD. no c/p or SOb. EKG: STRESS 12/12/24. Saw cardiology 12/02, unable to get office notes Reviewed and accepted by Dr Monreal with no further orders [facility] 12-13-2024 Nurse Note Cardiology note/ clearance requested [facility] 12-12-2024 History of Presen t illness Narrative [...] on 11/28/24. She had testing completed at [facility] that revealed severe claudication with probable [...] Brown 12/12/24 1748 documented in this encounter [facility] 12-12-2024 Instructions Candice Dowell RN - 12/12/2024 12:15 PM EST Your surgery/procedure is scheduled at [facility] on 12/17/2024 at 1030 am Arrival Time 830 am [facility] Address: [address] [place] [address]. [place] [address] Park in [address] Parking lot located on [facility]. Report to the Entrance B. Check in at the information desk the surgery. The waiting room located on the second floor. If you have any questions prior to surgery, please call Pre-Admission Clinic at [phone] between 7:30 am and 4:30 pm Monday through Monday. If you have questions the morning of surgery, please call the Pre-op Department at [phone]. Notify your SURGEON if you develop any [...] piercings ,hair extensions that contain metal, nail slovak, make-up, and contact lens. You may brush [...] RIGHTS AND RESPONSIBILITIES As a patient at [facility], you have the right to: Receive medical care and be informed of who is taking care of you Be treated with dignity and respect Have a family member/auto service representative of choice and your physician notified of your admission Receive information and actively participate in decisions about your care and treatment Refuse care, treatment and services Decide who may provide your support and speak for you Access episcop[facility] and spiritual services Participate in ethical issues [...] of hospital charges and payment methods Patient/patient auto service representative responsibilities are to: Provide information about [...] in clean clothes. documented in this encounter [facility] 12-02-2024 Note Cardiology Clinic No te Chief Complaint: Preop cardiac risk stratification HPI: Isaura Ruiz is a 69 y.o. female who has a past medical history of Hypertension. that is referred to Cardiology clinic for evaluation of perioperative restratification. Patient is undergoing procedure by vascular surgery for peripheral arterial disease. Patient denies any cardiac complaints or concerns. She denies any chest pain or shortness of breath. She denies any lower extremity edema, orthopnea, or paroxysmal nocturnal dyspnea. Her functional status is unknown/limited due to PVD issues. She denies any previous history of [place], CHF, CAD. ROS 10 point ROS is performed and is negative unless otherwise specified in HPI Past Medical History She has a past medical history of Hypertension. Surgical History She has no past surgical history on file. Social History She reports that she has quit smoking. Her smoking use included cigarettes. She has never used smokeless tobacco. She reports that she does not currently use alcohol. No history on file for drug use. Family History Family History Problem Relation Name Age of Onset No Known Problems Mother No Known Problems Father Medications Current Outpatient Medications on File Prior to Visit Medication Sig Dispense Refill aspirin 81 mg EC tablet Take 81 mg by mouth in the morning. atorvastatin (Lipitor) 40 mg tablet Take 40 mg by mouth in the morning. baclofen (Lioresal) 10 mg tablet Take 10 mg by mouth 3 times a day. cilostazol (Pletal) 100 mg tablet Take 100 mg by mouth in the morning and at bedtime. cloNIDine (Catapres) 0.1 mg tablet Take 0.1 mg by mouth in the morning. clopidogrel (Plavix) 75 mg tablet Take 75 mg by mouth in the morning. gabapentin (Neurontin) 300 mg capsule Take 300 mg by mouth 3 times a day. lisinopril 10 mg tablet Take 10 mg by mouth in the morning. zonisamide (Zonegran) 50 mg capsule Take 100 mg by mouth in the morning. No current facility-administered medications on file prior to visit. Allergies Patient has no known allergies. Physical Exam VITAL SIGNS: BP 142/78 (BP Location: Left arm, Patient Position: Sitting) Pulse 69 Ht 1.651 m (5' 5 ) Wt 74.8 kg (165 lb) SpO2 98% BMI 27.46 kg/m??? Constitutional: Well developed, Well nourished, No acute distress, Non-toxic appearance. HENT: Normocephalic, Atraumatic, Bilateral external ears have normal appearance, Nose appears normal, nares are patent. Eyes: PERRLA, EOMI, Conjunctiva normal, No discharge. Neck: Normal range of motion, No tenderness, Supple, No stridor. No cervical lymphadenopathy noted. Cardiovascular: Normal heart rate, Normal rhythm, No murmurs, No rubs, No gallops. Thorax & Lungs: Normal breath sounds, No respiratory distress, No wheezing, No chest tenderness to palpation. Abdomen: Bowel sounds normal, Soft, Nontender, No masses, No pulsatile masses. Skin: Warm, Dry, No erythema, No rash. Back: No tenderness, No CVA tenderness. Extremities: Intact distal pulses, No edema, No tenderness, No cyanosis, No clubbing. Musculoskeletal: Grossly normal strength in extremities Neurologic: Alert & oriented x 3, no gross focal neurological deficits Psychiatric: Affect normal, Judgment normal, Mood normal. EKG results: No results found for this or any previous visit (from the past 4464 hour(s)). Echo results: No echocardiogram results found for the past 12 months Radiology: No image results found. Assessment/Plan: Isaura Ruiz is a 69 y.o. female with Pre-op evaluation Diagnoses and all orders for this visit: Pre-op evaluation - ECG 12 lead unit performed Patient denies any cardiac complaints or concerns. Her EKG is abnormal with nonspecific ST/T changes and poor R wave progression. Her functional status is limited/unknown Given unknown functional status, will obtain Lexiscan stress test to assess for ischemia and echocardiogram to assess LVEF, regional wall motion, valve function Further recommendations for perioperative restratification to follow optimize medical management Aggressive risk factor modification Plan of care discussed with patient. All questions were answered. Patient voices understanding and is agreeable with current plan. Patient was educated on red flag symptoms. Strict return precautions were provided. Patient verbalizes understanding Follow-up in cardiology clinic in 3 months, or sooner as needed Thank you for allowing us to participate in the care of your patient. Please do not hesitate to contact cardiology with any questions or concerns. William Ahn MD Interventional Cardiology 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 She will need bilateral iliac stenting right lower extremity angiogram and intervention possible femorofemoral bypass. She will need cardiac risk stratification. 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 She will need bilateral iliac stenting right lower extremity angiogram and intervention possible femorofemoral bypass. She will need cardiac risk stratification. documented in this encounter [facility] 11-28-2024 History of Presen t illness Narrative [...] ischemia of right lower extremity with gangrene ([facility]) Claudication ([facility]) [facility] [place] Prince MD, PRATIMA, RPVI, FSVS, FACS [facility] This note was created with the assistance of a speech recognition program. While intending to generate a timely document that accurately reflects the content of the visit, no guarantee can be provided that every grammatical or spelling mistake has been or will be identified or corrected. Thank you for your understanding. documented in this encounter [facility] 11-28-2024 Instructions Maldonado Prince MD - 11/28/2024 10:30 AM EST Are You Ready To Kick The Habit? Free Tobacco Cessation Resources [facility] Services [facility] provide all employees with free tobacco cessation services that include: Counseling to understand nicotine addiction Education about medications that can help you successfully quit Assistance with developing a plan to quit Call to set up an individual appointment or find out when group classes will be held: [facility]: [phone] [facility]: [phone] [facility]: [phone] [facility]: [phone] Quit Smoking Action Plan and Resources [facility] offers an eight-week, online smoking cessation plan to all [facility] employees, regardless of whether [place] is your medical insurance provider. Go to www.[employer] Technologiespromedica.org/employeewel lness and click the Health Risk Assessment and Resources link to get started. In the Xrxay0Ogsrtd menu, click Action Plans instead of Health Risk Assessment to access the Quit Smoking Action Plan. Additional smoking cessation resources are also available to all [facility] employees on the Wzuhe3Jmuxwp web page at www.Ioxus.Maven/bolivar barboza. [place] Tobacco Cessation Program If [place] is your medical insurance provider, there are more free resources available to you, including: No copays or deductibles on local tobacco cessation counseling services to help you quit Prescription assistance for tobacco cessation medications to help you quit For details about the tobacco cessation program available to [place] members, go to www.Ioxus.Maven (Search: Tobacco Cessation Program). [place] Tobacco Quit Line 8-793-WFEV-NOW ( ) is a toll-free, telephonic service that helps [place] residents quit smoking and using tobacco. It is staffed by experts who tailor a quit plan for you and provide you with advice. [place] Tobacco Quit Line 7-445-RIEA-NOW ( ) is a toll-free, telephonic service that helps [place] residents quit smoking and using tobacco. It is staffed by experts who tailor a quit plan for you and provide you with advice. Two weeks of nicotine replacement therapy may be provided at no charge, if needed. Additional Resources These national organizations also offer free information and resources to help you quit tobacco: [place] [employer]--www.cancer.org/healthy /stayawayfromtobacco [place] Heart Association--www.heart.org (Search: Quit Smoking) Centers for Disease Control and Prevention--www.cdc.gov/tobacco [place] Lung Association--www.lungusa.org documented in this encounter [facility] 09-07-2021 Evaluation note Encounter Date Diagnosis Assessment [...] Patient care instructions given in writting by [facility] Care At Home document MyMedMatch Other Evaluation note* Diagnosis Onset Date Resolution Status Contact dermatitis noneactiv e [facility] Work Phone: Evaluation note* Diagnosis PVD (peripheral vascular disease) ([facility]) Unspecified peripheral vascular disease Claudication ([facility]) Unspecified peripheral vascular disease Bilateral carotid bruits [facility] Diagnosis 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 ([facility])- Primary Claudication ([facility]) Unspecified peripheral vascular disease [facility] Diagnosis 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)- Primary Claudication ([facility]) Unspecified peripheral vascular disease Claudication ([facility])- Primary Unspecified peripheral vascular disease 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) Pre-op testing- Primary Unspecified pre-operative examination 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) Claudication (CMS-HCC) Unspecified peripheral vascular disease 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) Claudication ([facility]) Unspecified peripheral vascular disease [facility] Diagnosis 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)- Primary Claudication (CMS-HCC) Unspecified peripheral vascular disease Claudication ([facility])- Primary Unspecified peripheral vascular disease 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) Critical limb ischemia of both lower extremities (CMS-HCC) [facility] Diagnosis 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)- Primary Claudication Unspecified peripheral vascular disease Critical limb ischemia of both lower extremities (CMS-HCC)- Primary documented in this encounter [facility] Narrative - Reported* Type Description Date Medical History thalassemia minor MyMedMatch Other Hospital Discharge instructionsNot on filedocumented in this encounterProMedihi Health SystemInstructionsNot on filedocumented in this encounterProWhite Hospital SystemInstructionsNot on filedocumented in this encounterProWhite Hospital SystemReason for referral (narrative)* Misc (Routine) - Authorized Specialty Diagnoses / Procedures Referred By Contac t Referred To Contact Procedures Wound care (specify) Channing Frazier APRN-CNP [facility], [address] [place] [id number] Phone: tel: fax: Referral ID Status Reason Start Date Expiration Date V isits Requested Visits Authorized [id number] Authorized 12/19/2024 12/19/2025 1 1 * Misc (Routine) - Authorized Specialty Diagnoses / Procedures Referred By Contac t Referred To Contact Procedures Hygiene Channing Frazier APRN-CNP [facility], [address] [place] [address] Phone: tel: fax: Referral ID Status Reason Start Date Expiration Date V isits Requested Visits Authorized [id number] Authorized 12/19/2024 12/19/2025 1 1 * Misc (Routine) - Authorized Specialty Diagnoses / Procedures Referred By Contac t Referred To Contact Procedures Adult diet Channing Frazier APRN-CNP [facility], [address] [place] [address] Phone: tel: fax: Referral ID Status Reason Start Date Expiration Date V isits Requested Visits Authorized [id number] Authorized 12/19/2024 12/19/2025 1 1 [facility] Narrative* Auth/Cert Specialty Diagnoses / Procedures Referred By Willis t Referred To Contact Diagnoses 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) Claudication (CMS-HCC) 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) [I70.261] Claudication (CMS-HCC) [I73.9] Procedures WI REVASCULARIZATION ILIAC ARTERY ANGIOP 1ST VSL ANGIOPLASTY ILIAC BYPASS ARTERY FEMORAL FEMORAL Maldonado Prince MD [address], [place] [address] Phone: tel: fax: Referral ID Status Reason Start Date Expiration Date Visits Re quested Visits Authorized [id number] 1 1 [facility] Summary Purpose Family History No Family History Records FoundNo Family History Records FoundNo Family History Records FoundNo Family History Records FoundNo Family History Records FoundNo Family History Records Found Advance Directives No Advanced Directives Records Found Advance Directive Response Recorded Date/ Time Advance Directives No June 1:13pm Date Activated Date Inactivated Comments 12/17/2024 2:52 PM Date Activated Date Inactivated Comments 12/17/2024 2:52 PM 12/19/2024 5:59 PM Chief Complaint and Reason for Visit Chief Complaint swelling/itching carrie und eyes Reason for Visit Contact dermatitis Additional Source Comments INFORMATION SOURCE (unrecogn ized section and content) DATE CREATED AUTHOR 03/30/2018 [facility] DATE CREATED AUTHOR AUTHOR'S ORGANIZ ATION 07/18/2022 [facility] DATE CREATED AUTHOR AUTHOR'S ORGANIZ ATION 11/24/2024 [facility] DATE CREATED AUTHOR AUTHOR'S ORGANIZ ATION 12/29/2024 [facility] DATE CREATED AUTHOR AUTHOR'S ORGANIZ ATION 12/29/2024 [facility] DATE CREATED AUTHOR AUTHOR'S ORGANIZ ATION [facility]/03/2025 [facility] REASON FOR VISIT (unrecogniz ed section and content) Reason Comments Med Refill Reason Comments Claudication Previous Dr. Shreya beckwith (07/2022) Specialty Diagnoses / Procedures Referred By Willis canseco Referred To Contact Vascular Surgery Diagnoses Claudication ([facility]) Skye Bowman MD [address] [place] [address] Phone: tel: fax: [facility] [address] [place] [address] Phone: tel:[phone] fax: Referral ID Status Reason Start Date Expiration Date Visits Requested Visits Authorized [id number] Pending Review Specialty Services Required 10/21/2024 10/21/2025 1 1 Reason Comments bilat iliac stents & fem-fem bypass 12-17 Care Teams (unrecognized sec tion and content) Team Status: Active Member Role Status Dates Skye Bowman MD Primary Care Provider Active Team Status: Inactive Member Role Status Dates Skye Bowman MD Primary Care Provider Active Start: July 08, 2024 End: July 08, 2024 Tsering Pineda APRN Attending Provider Active S tart: July 08, 2024 End: July 08, 2024 Ct Scan Tech Relationship Specialty Start Date End Date Skye Bowman MD [address] [phone] PCP - General Family Medicine 06/30/22 Ct Scan Tech Relationship Specialty Start Date End Date Skye Bowman MD PCP - General Family Medicine 06/30/22 Ct Scan Tech Relationship Specialty Start Date End Date Skye Bowman MD PCP - General Family Medicine 06/30/22 Ct Scan Tech Relationship Specialty Start Date End Date Skye Bowman MD PCP - General Family Medicine 06/30/22 Ct Scan Tech Relationship Specialty Start Date End Date Skye [...] Betty Horner RN)1340 (Given - Provider: Tavia Zuniga, DEVAN)1900 (Due) aspirin EC tablet 81 mg 81 mg, oral, Daily, First dose on Mon12/17/24 at 1500, Do not crush or chew. 1500 (Canceled Entry - Provider: Betty Horner RN) 0900 (Not Given - Provider: Tona South RN - Reason: Other - Comment: duplicate order) 0900 (Not Given - Provider: Tavia Zuniga, DEVAN - Reason: Other - Comment: duplicate order) [...] 0849 (Given - Provider: Tavia Zuniga, DEVAN) gabapentin (NEURONTIN) capsule 300 mg 300 mg, [...] Betty Horner RN)1342 (Given - Provider: Tavia Zuniga, DEVAN)2200 (Due) heparin (porcine) injection 5,000 Units 5,000 [...] 0849 (Given - Provider: Tavia Zuniga, DEVAN) methocarbamoL (ROBAXIN) tablet 750 mg 750 mg, oral, 3 times daily, First dose on Mon12/17/24 at 1500, For 3 days 1500 (Not Given - Provider: Flores Mix RN - Reason: Patient/family refused)2145 (Given - Provider: Betty Horner RN) 0558 (Given - Provider: Betty Horner RN)1428 (Given - Provider: Tona South, DEVAN)2100 (Given - Provider: Betty Horner RN) 0549 (Given - Provider: Betty Horner RN)1341 (Given - Provider: Tavia Zuniga, DEVAN)2200 (Due) zonisamide (ZONEGRAN) capsule 100 mg 100 [...] Horner RN)0820 (Stop Bag - Provider: Tavia Zuniga RN) magnesium sulfate IVPB 4000 mg/100 mL in [...] BE BASED ON THE PRIMARY CLINICAL RECORDS. [employer] [facility]. provides no warranty or guarantee of the accuracy or completeness of information in this document.
== END 2025-01-14 12:51 | disposition home or self-care (01) ==
LOC: WC 12:50
PROVIDERS: PCP Family Medicine; Visit Provider Physician Assistant
DX: I70.234 Atherosclerosis of native arteries of right leg with ulceration of heel and midfoot (principal); L97.413 Non-pressure chronic ulcer of right heel and midfoot with necrosis of muscle
CPT/HCPCS: G0463

== ENCOUNTER 2025-01-21 12:51 | Outpatient (OUT) | payer MEDICARE, SELFPAY ==
--- NOTE | 2025-01-21 13:00 | CA_ITS ---
[facility] Test Date: 2025-01-21 Pat Name: BHAVYA COCHRAN Department: Room: - Gender: Female Industrial Automation Specialist: : 1955 Requested By: 1890 Order Number: [id number] Reading MD: PATRIC HEMPHILL M.D. Interpretive Statements Summary of the findings: Right leg: YESSY= 0.86; TBI= 0.42. Doppler waveforms demonstrate monophasic flow at the posterior tibial and dorsalis pedis arteries. Left leg: YESSY= 0.8; TBI= 0.49. Doppler waveforms demonstrate monophasic flow at the posterior tibial and dorsalis pedis arteries. Segmental pressures: Segmental pressures demonstrate mild right femoropopliteal disease and significant left inflow disease. Pulse volume recordings: PVRs at the high thigh, below knee, and ankle levels show mildly dampened waveforms on the right and significantly dampened waveforms on the left. Conclusion: Right and left ankle-brachial indices are suggestive of mildly reduced overall arterial flow at rest. Toe-brachial indices are suggestive of PAD. The study shows evidence of PAD with reduced overall arterial flow at rest bilaterally with suggestion of moderate right femoropopliteal disease and significant left inflow disease. Significant arm pressure difference is suggestive of signficant right subclavian and/or innominate stenosis. Electronically Signed On 01-21-2025 19:28:05 EDT by PATRIC HEMPHILL M.D.
== END 2025-01-21 12:52 | disposition home or self-care (01) ==
LOC: CARD 12:52
PROVIDERS: PCP Family Medicine; Visit Provider Student in an Organized Health Care Education/Training Program
DX: I70.223 Atherosclerosis of native arteries of extremities with rest pain, bilateral legs (principal)
CPT/HCPCS: 93923

== ENCOUNTER 2025-02-18 15:25 | Outpatient (OUT) | payer MEDICARE, SELFPAY | END 2025-02-18 15:26 | disposition home or self-care (01) | LOC: WC 15:26 | PROVIDERS: PCP Family Medicine; Visit Provider Physician Assistant | DX: I70.234 Atherosclerosis of native arteries of right leg with ulceration of heel and midfoot (principal); L97.413 Non-pressure chronic ulcer of right heel and midfoot with necrosis of muscle | CPT/HCPCS: G0463 ==

== ENCOUNTER 2025-07-23 13:15 | Outpatient (OUT) | payer MEDICARE, SELFPAY ==
--- OUTSIDE RECORDS SUMMARY | 2025-07-10 09:00 | XMS_ITS ---
Author Organization The [facility] in [place] Address [address] [place] [address] Care Team Providers Care Metal Cans Supervisor Name Role Phone Jair Bowman Primary Care Provider [phone] Allergies No Known Allergies REASON FOR VISIT f/u testing from Neurologist- was told has neuropathy like she was a diabetic- [facility]- no answer to ask for records- request faxed over Medications Medication SIG (Take, Route, Frequency, Duration) Notes Start Date End Date Status Plavix 75 MG 1 tablet Orally Once a day 12/24/2024 Active Gabapentin 300 MG 1 in amd and 3 at hs Orally bid Pain management Active Lisinopril 10 mg TAKE 1 TABLET BY MOUTH ONCE DAILY po daily; Duration: 30 days Active Cilostazol 100 MG 1 tablet Orally Twice a day; Duration: 30 days Active Atorvastatin Calcium 40 MG 1 tablet Orally Once a day; Duration: 90 days 12/24/2024 Active Norvasc 5 MG 1 tablet Orally Once a day; Duration: 30 days 07/10/2025 Active Social History Tobacco Use: Social History Observation Description Date Details (start date - stop date) Former Smoker 12/07/1984 - 11/23/2024 Tobacco Control (Standard) Question Answer Notes Tobacco use: Former smoker When did you start smoking? 12/07/1984 When did you stop smoking? 11/23/2024 How long has it been since you last smoked? Less than 1 month Vital Signs Weight 181.6 lbs 07/10/2025 Height 65 in 07/10/2025 Blood pressure systolic 186 mm Hg 07/10/20 25 Blood pressure diastolic 122 mm Hg 025 BMI 30.22 kg/m2 07/10/2025 Encounters Encounter Location Date [facility] [address] [place] [address] 07/10/2025 Jair Bowman Hypertension I10 ; C OPD (chronic obstructive pulmonary disease) J44.9 ; Severe claudication I73.9 ; Peripheral neuropathy G62.9 and Hip pain M25.559 Assessments Encounter Date Diagnosis (ICD Code) Assessment Notes Treatment Notes Treatment Clinical Notes Section Notes 07/10/2025 Hypertension (ICD-10 - I10) 07/10/2025 COPD (chronic obstructive pulmonary disease) (ICD-10 - J44.9) 07/10/2025 Severe claudication (ICD-10 - I73.9) 07/10/2025 Peripheral neuropathy (ICD-10 - G62.9) 07/10/2025 Hip pain (ICD-10 - M25.559) Plan Of Treatment Medication Medication Name Sig Start Date Stop Date Notes cloNIDine HCl 0.1 MG take 1 tablet by mouth once daily Norvasc 5 MG 1 tablet Orally Once a day; Duration: 30 days 07/10/2025 Pending Test Test Name Order Date HEMOGLOBIN A1C (GLYCO) 07/10/2025 IRON, TOTAL 07/10/2025 LIPID PANEL (CHOL/TRIG/HDL/LDL) 07/10/20 25 Insulin Level 07/10/2025 STOOL OCCULT BLOOD 07/10/2025 VIT B12 AND FOLATE 07/10/2025 XR HIP LT 2 3V W PELVIS 07/10/2025 THYROID PANEL (T4/TSH/FREE T3) XR HIP RT 2 3V W PELVIS 07/10/2025 CMP (COMP MET AGUIRRE) w/eGFR CKD-EPI 2024 CBC WITH DIFF 07/10/2025 Progress Notes * Isaura RUIZDOB:1954 (69 yo F)Acc No.[id number]:07/10/2025 Progress Note Patient: Isaura ROWE Provider: Akira Bowman ([facility])MD :1955 A ge:69 Y S ex:Female Date:07/10/2025 Address:[address] [place] [address] [address], [id number] Check In:12:58 PM ESTCheck O ut:01:39 PM EST Subjective: * Chief Complaints: * f /u testing from Neurologist- was told has neuropathy like she was a diabetic- [facility]- no answer to ask for records- request faxed over * HPI: G eneral: some from left lower back - but has neuropathy -. * ROS: E ENT: hearing changes d enies. v isual changes d enies.?non-healing mouth sores d enies. s wollen glands or neck lumps d enies. h oarseness d enies. s ore throat d enies. d ifficulty swallowing d enies. n ose bleeds d enies. n [place] congestion d enies. e ar ache d enies. e ar discharge?denies. r inging in ears d enies. l ight sensitivity d enies. e ye pain d enies. b lurring d enies. e ye irritation d enies. d ouble vision d enies.?vision loss d enies. G eneral/Constitutional: Sweats: D enies. F atigue d enies. S leep problems d enies. A norexia d enies. M alaise d enies. W eight loss d enies.?Fatigue or Weakness d enies. F ever or Chills d enies. C ardiovascular: Shortness of Breath w/lying flat d enies. L ightheadedness/dizziness d enies. C hest tightness/ heavy pressure d enies. S welling of legs, ankles, or feet d enies. W aking up with shortness of breath d enies. C hest pain denies. P alpitations d enies. W eight gain d enies. R espiratory: Chronic or frequent cough d enies. C oughing up blood?denies. D ifficulty breathing d enies. P roductive cough d enies. S noring?denies. S hortness of breath that awakens from sleep (PND) d enies. C hest pain d enies. S putum production d enies. W heezing d enies. M usculoskeletal: Joint pain d enies. J oint Fluid d enies. B ack pain d enies. K nee pain d enies. N jeff pain d enies. J oint Stiffness d enies. M uscle cramps d enies. W eakness of muscles d enies. A rthritis d enies. M uscle aches d enies. P ain in shoulder(s) d enies. S wollen joints d enies. 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 M other: , Colon cancer. B rother(s): alive, schizophrenia, thyroid disease, diagnosed with Heart Disease. S ister(s): alive, thyroid disease. Son(s): , diagnosed with Diabetes. D jollyer(s): alive. 1 brother(s) , 5 sister(s) . 3 son(s) , 1 daughter(s) . . One son . * Social History: T obacco Use: T obacco Control (Standard) T obacco use: F ormer smoker W hen did you start smoking? 0 12/07/1984 W hen did you stop smoking? 0 11/23/2024 H ow long has it been since you last smoked??Less than 1 month * Medications: T akingAtorvastatin Calcium 40 MG Tablet 1 tablet Orally Once a day Cilostazol 100 MG Tablet 1 tablet Orally Twice a day cloNIDine HCl 0.1 MG Tablet take 1 tablet by mouth once daily Gabapentin 300 MG Capsule 1 in amd and 3 at hs Orally bid , Notes to Pharmacist: Pain managementLisinopril 10 mg Tablet TAKE 1 TABLET BY MOUTH ONCE DAILY po daily Plavix(Clopidogrel Bisulfate) 75 MG Tablet 1 tablet Orally Once a day Taking Atorvastatin Calcium 40 MG Tablet 1 tablet Orally Once a day Taking Cilostazol 100 MG Tablet 1 tablet Orally Twice a day Taking cloNIDine HCl 0.1 MG Tablet take 1 tablet by mouth once daily Taking Gabapentin 300 MG Capsule 1 in amd and 3 at hs Orally bid , Notes to Pharmacist: Pain managementTaking Lisinopril 10 mg Tablet TAKE 1 TABLET BY MOUTH ONCE DAILY po daily Taking Plavix(Clopidogrel Bisulfate) 75 MG Tablet 1 tablet Orally Once a day DiscontinuedAspirin 81(Aspirin) 81 MG Tablet Delayed Release 1 tablet Orally Once a day Baclofen 10 MG Tablet 1 tablet as needed Orally three time a day , Notes to Pharmacist: pain managementClindamycin Phosphate 1 % Gel 1 application Externally Twice a day Lasix(Furosemide) 20 MG Tablet 1 tablet Orally Once a day As needed edema, Notes to Pharmacist: PRNMedication List reviewed and reconciled with the patientDiscontinued Aspirin 81(Aspirin) 81 MG Tablet Delayed Release 1 tablet Orally Once a day Discontinued Baclofen 10 MG Tablet 1 tablet as needed Orally three time a day , Notes to Pharmacist: pain managementDiscontinued Clindamycin Phosphate 1 % Gel 1 application Externally Twice a day Discontinued Lasix(Furosemide) 20 MG Tablet 1 tablet Orally Once a day As needed edema, Notes to Pharmacist: PRNMedication List reviewed and reconciled with the patient * Allergies: N .K.D.A.no[Allergies Verified] Objective: * Vitals: W t:181.6lbs, Ht: 65 in, BP:186/122mm Hg, BMI:30.22Index, Ht-cm: 165.1 cm, Wt-k.37 kg. * Examination: P hysical Exam: GENERAL: w ell developed, well nourished, in no acute distress. HEAD: n ormocephalic/atraumatic. EYES: p upils equal, round and reactive to light, conjunctivae and sclerae normal. EARS: n o deformity or lesion of external ear, canals and TM appear normal bilaterally, TM's intact, not inflamed with normal light reflex, hearing grossly normal to conversational speech. NOSE: n o deformity, discharge, inflammation, or lesions.? MOUTH: m ucous membranes moist, normal oropharynx and posterior pharynx without lesions or exudates, tongue normal, dentition normal. NECK: n jeff supple, no masses or palpable cervical nodes, trachea midline, thyroid without nodules, masses, tenderness, or enlargement. CHEST: n o chest wall deformity, no chest wall tenderness.? LUNGS: n ormal respiratory effort and clear to auscultation, no wheezes, rales, or rhonchi, good air exchange. CARDIO: r egular rate and rhythm, normal S1 and S2, nor murmur, rub, or gallop. PULSES: n ormal capillary refill. ABDOMEN: s oft, non-distended, non-tender, no masses. MUSCULOSKELETAL: n o deformity or scoliosis noted, normal range of motion, joints normal, no erythema, edema, effusion, or ecchymosis. EXTREMITY: n o clubbing, cyanosis, edema, or deformity with normal ROM in both upper and lower bilateral extremities. NEUROLOGIC: g rossly normal. SKIN: n o rashes, ulcerations, or suspicious lesions. LYMPH NODES: n o cervical adenopathy, nodes normal. MENTAL STATUS: a lert and oriented x3, normal mood and affect. Assessment: * Assessment: 1. H ypertension - I10 (Primary) 2 . C OPD (chronic obstructive pulmonary disease) - J44.9 3 . S evere claudication - I73.9 4 . P eripheral neuropathy - G62.9 5 . H ip pain - M25.559 Plan: * Treatment: 2. C OPD (chronic obstructive pulmonary disease) L AB: HEMOGLOBIN A1C (GLYCO) L AB: IRON, TOTAL L AB: LIPID PANEL (CHOL/TRIG/HDL/LDL) L AB: Insulin Level L AB: STOOL OCCULT BLOOD L AB: VIT B12 AND FOLATE L AB: THYROID PANEL (T4/TSH/FREE T3) L AB: CMP (COMP MET AGUIRRE) w/eGFR CKD-EPI L AB: CBC WITH DIFF 3. S evere claudication L AB: HEMOGLOBIN A1C (GLYCO) L AB: IRON, TOTAL L AB: LIPID PANEL (CHOL/TRIG/HDL/LDL) L AB: Insulin Level L AB: STOOL OCCULT BLOOD L AB: VIT B12 AND FOLATE L AB: THYROID PANEL (T4/TSH/FREE T3) L AB: CMP (COMP MET AGUIRRE) w/eGFR CKD-EPI L AB: CBC WITH DIFF 4. P eripheral neuropathy L AB: HEMOGLOBIN A1C (GLYCO) L AB: IRON, TOTAL L AB: LIPID PANEL (CHOL/TRIG/HDL/LDL) L AB: Insulin Level L AB: STOOL OCCULT BLOOD L AB: VIT B12 AND FOLATE L AB: THYROID PANEL (T4/TSH/FREE T3) L AB: CMP (COMP MET AGUIRRE) w/eGFR CKD-EPI L AB: CBC WITH DIFF 5. H ip pain I maging: XR HIP LT 2 3V W PELVIS I maging: XR HIP RT 2 3V W PELVIS * Procedure Codes: * Preventive Medicine: Screenings/Counseling: B PR ACTION PLAN Above Normal BMI Follow-up D ietary management education, guidance, and counseling * * Sign off status: Completed Visit Status: C HK (Check Out) true * Provider: Akira Bowman ([facility])MD Date: Generated for Printi ng/Faxing/eTransmitting on: 01:30 PM EDT History and Physical Notes * HPI (History of Present Illness) Category Sub-Category Detail Notes Category Not es General some from left lower back - but has neuropathy - Examination Category Sub-Category Detail Notes Category Not es Physical Exam GENERAL: well developed, well nourished, in no acute distress HEAD: normocephalic/atraum atic EYES: pupils equal, round and reactive to light, conjunctivae and sclerae normal EARS: no deformity or lesi on of external ear, canals and TM appear normal bilaterally, TM's intact, not inflamed with normal light reflex, hearing grossly normal to conversational speech NOSE: no deformity, discha rge, inflammation, or lesions MOUTH: mucous membranes brittany st, normal oropharynx and posterior pharynx without lesions or exudates, tongue normal, dentition normal NECK: neck supple, no mass es or palpable cervical nodes, trachea midline, thyroid without nodules, masses, tenderness, or enlargement CHEST: no chest wall deform ity, no chest wall tenderness LUNGS: normal respiratory e ffort and clear to auscultation, no wheezes, rales, or rhonchi, good air exchange CARDIO: regular rate and rhy thm, normal S1 and S2, nor murmur, rub, or gallop PULSES: normal capillary ref ill ABDOMEN: soft, non-distended, non-tender, no masses RECTAL: MUSCULOSKELETAL: no deformity or scol iosis noted, normal range of motion, joints normal, no erythema, edema, effusion, or ecchymosis EXTREMITY: no clubbing, cyanosi s, edema, or deformity with normal ROM in both upper and lower bilateral extremities NEUROLOGIC: grossly normal SKIN: no rashes, ulceratio ns, or suspicious lesions LYMPH NODES: no cervical adenopat hy, nodes normal MENTAL STATUS: alert and oriented x 3, normal mood and affect
--- OUTSIDE RECORDS SUMMARY | 2025-07-14 09:08 | XMS_ITS ---
Author Organization The [facility] in [place] Address [address] [place] [address] Care Team Providers Care Directory Assistance Operator Name Role Phone Jair Bowman Primary Care Provider REASON FOR VISIT EMG Results- Encounters Encounter Location Date Provider Diagnosis [facility] [address] [place] [address] 07/14/2025 Jair Bowman Lumbar radiculopathy M54.16 Assessments Encounter Date Diagnosis (ICD Code) Assessment Notes Treatment Notes Treatment Clinical Notes Section Notes 07/14/2025 Lumbar radiculopathy (ICD-10 - M54.16) Plan Of Treatment Pending Test Test Name Order Date MRI Lumbar Spine w/o contrast 07/14/2025 Progress Notes * Isaura RUIZDOB:1954 (69 yo F)Acc No.[id number]:07/14/2025 Patient: Nicolle Isaura LOPEZ :1955 A ge:69 Y S ex:Female Address:[address] [place] [address] Subjective: * Chief Complaints: * E MG Results- * Medical History: * Surgical History: * Hospitalization/Major Diagno stic Procedure: * Medications: Objective: * Vitals: * Physical Examination: Assessment: * Assessment: 1. L umbar radiculopathy - M54.16 (Primary) Plan: * Treatment: * Procedure Codes: * true * Date: Generated for Printi ng/Faxing/eTransmitting on: 1 01:29 PM EDT
--- OUTSIDE RECORDS SUMMARY | 2025-07-23 13:29 | XMS_ITS | Encounter Summary ---
Author Organization [facility] Address [facility] [id number] [address] [place] [address] Care Team Providers Care Engine House Helper Name Role Phone Janes Bowman MD Primary Care Provider [phone] Encounter Details Date Type Department Care Team (Late st Contact Info) Description 08/24/2022 Telephone [facility] [address] [place] [phone] Brandon Solorzano, NURSE ADMINISTRATOR Social History Tobacco Use Types Packs/Day Years Used Date Smoking Tobacco: Every Day Cigarettes Smokeless Tobacco: Never Alcohol Use Standard Drinks/Week Comments Defer 0 (1 standard drink = 0.6 oz pur e alcohol) Childcare Answer Date Recorded Childcare Unknown 03/20/2019 Employment Answer Date Recorded Employment Unknown 03/20/2019 Comments Unknown Sex and Gender Information Value Date Recorded Sex Assigned at Not on file Legal Sex Female 11:47 AM EDT Gender Identity Not on file Sexual Orientation Not on file documented as of this encounter Plan of Treatment Not on file documented as of this encounter Visit Diagnoses Not on filedocumented in this encounter Care Teams Engine House Helper Relationship Specialty Start Date End Date Janes Bowman MD PCP - General Family Medicine 06/30/22 documented as of this encounter
--- OUTSIDE RECORDS SUMMARY | 2025-07-23 13:29 | XMS_ITS | Encounter Summary ---
Author Organization [facility] Address [facility] [id number] [address] [place] [address] Care Team Providers Care Barbering Teacher Name Role Phone Janes Bowman MD Primary Care Provider [phone] Encounter Details Date Type Department Care Team (Late st Contact Info) Description 08/19/2022 Telephone [facility] [address] [place] [phone] Brandon Solorzano, FITNESS DIRECTOR Social History Tobacco Use Types Packs/Day Years [...] on file Sexual Orientation Not on file COVID-19 Exposure Response Date Recorded In the last month, have you been in contact with someone who was confirmed or suspected to have Coronavirus / COVID-19? No / Unsure 07/21/2022 11:16 AM EDT documented as of this encounter Plan of Treatment Not on file documented as of this encounter Visit Diagnoses Not on filedocumented in this encounter Care Teams Barbering Teacher Relationship Specialty Start Date End Date Janes Bowman MD PCP - General Family Medicine 06/30/22 documented as of this encounter
--- OUTSIDE RECORDS SUMMARY | 2025-07-23 13:29 | XMS_ITS | Encounter Summary ---
Author Organization [facility] Address [facility] [id number] [address] [place] [address] Care Team Providers Care Health And Safety Representative Name Role Phone Janes Bowman MD Primary Care Provider [phone] Encounter Details Date Type Department Care Team (Late st Contact Info) Description 12/26/2024 Orders Only [facility] [address] [place] [address] Carina Landon, [facility] Social History Tobacco Use Types Packs/Day Years Used Date Smoking Tobacco: Former Cigarettes 1 58.1 S tarted: 1965 Smokeless Tobacco: Never Alcohol Use Standard Drinks/Week Comments Defer 0 (1 standard drink = 0.6 oz pur e alcohol) [facility] Utilities Answer Date Recorded In the past 12 months has e electric, gas, oil, or water company threatened to shut off services in your home? No 12/17/2024 AUDIT-C Answer Date Recorded Q1: How often do you have a drink containing alcohol? Never 12/17/2024 Q2: How many drinks containi ng alcohol do you have on a typical day when you are drinking? Patient does not drink Q3: How often do you have si x or more drinks on one occasion? Never 12/17/2024 PHQ-2 Answer Date Recorded Total Score 0 12/17/2024 PRAPARE - Transportation Answer Date Re corded In the past 12 months, has l ack of transportation kept you from medical appointments or from getting medications? No 12/07 In the past 12 months, has l ack of transportation kept you from meetings, work, or from getting things needed for daily living? No 12/17/2024 Housing Instability Answer Date Recorde d Are you worried or concerned that in the next two months you may not have stable housing that you own, rent or stay in as a part of a household? No 12/17/2024 Childcare Answer Date Recorded Childcare Unknown 03/20/2019 Employment Answer Date Recorded Employment Unknown 03/20/2019 Hunger Screening Answer Date Recorded Within the past 12 months we worried whether our food would run out before we got money to buy more. Never True 12/18/2024 Within the past 12 months th e food we bought just didn't last and we didn't have money to get more. Never True 12/18/2024 Comments No Sex and Gender Information Value Date Recorded Sex Assigned at Not on file Legal Sex Female 11:47 AM EDT Gender Identity Not on file Sexual Orientation Not on file documented as of this encounter Plan of Treatment Not on file documented as of this encounter Goals Goal Patient Goal Type Associated Problems Recent Progress Patient-Stated? Author discharge home General Yes Lorenza Mcdonnell, DEVAN Note: Evaluation of progress towards goal: progressing towards discharge documented as of this encounter Visit Diagnoses Not on filedocumented in this encounter Additional Health Concerns Assessment Noted Time PHQ-9 Depression Total Score: 0 12/18/19 25 4:51 PM EDT documented as of this encounter Care Teams Health And Safety Representative Relationship Specialty Start Date End Date Janes Bowman MD PCP - General Family Medicine 06/30/22 documented as of this encounter
--- OUTSIDE RECORDS SUMMARY | 2025-07-23 13:29 | XMS_ITS | Encounter Summary ---
Author Organization [facility] Address [facility] [place]-[id number] [address] [place] [address] Care Team Providers Care Renewable Energy Engineer Name Role Phone Janes Bowman MD Primary Care Provider [phone] Encounter Details Date Type Department Care Team (Late st Contact Info) Description 12/17/2024 Orders Only [facility] [place] [address] External, Scanning Provider Arterial embolism ([facility]) (Primary Dx) Social History Tobacco Use Types Packs/Day Years Used Date Smoking Tobacco: Former Cigarettes 1 58.1 S tarted: 1967 Smokeless Tobacco: Never Alcohol Use Standard Drinks/Week Comments Defer 0 (1 standard drink = 0.6 oz pur e alcohol) [facility] Utilities Answer Date Recorded In the [...] on file documented as of this encounter Functional Status * AUDIT-C Score Answer Date of Assessment Author 0 12/17/2024 4:51 PM Christin Sahu RN * Question Answer Date of Assessment Author Q1: How often do you have a drink containing alcohol? Never 12/17/2024 4:51 PM ARCADIOT Christin Almanza RN Q2: How many drinks containing alcohol do you have on a typical day when you are drinking? Patient does not drink 12/17/2024 4:51 PM ARCADIOT Christin Almanza, DEVAN Q3: How often do you have six or more drinks on one occasion? Never 12/17/2024 4:51 PM ARCADIOT Christin Almanza RN * Question Answer Date of Assessment Author Functional Status Independent 12/17/2024 4:49 PM Christin Sahu RN documented as of this encounter Plan of Treatment Not on file documented as of this encounter Goals Goal Patient Goal Type Associated Problems Recent Progress Patient-Stated? Author discharge home General Yes Lorenza Mcdonnell RN Note: Evaluation of progress towards goal: progressing towards discharge documented as of this encounter Results * CT angiogram abdominal aorta with runoff (11/26/2024 3:55 PM EST) us Scanning Provider External IMG CT ORDERABLES Fin al Result documented in this encounter Visit Diagnoses Diagnosis Arterial embolism (CMS-HCC)- Primary Embolism and thrombosis of unspecified artery documented in this encounter Additional Health Concerns Assessment Noted Time PHQ-9 Depression Total Score: 0 12/18/19 25 4:51 PM EDT documented as of this encounter Care Teams Renewable Energy Engineer Relationship Specialty Start Date End Date Janes Bowman MD PCP - General Family Medicine 06/30/22 documented as of this encounter
--- OUTSIDE RECORDS SUMMARY | 2025-07-23 13:29 | XMS_ITS | Encounter Summary ---
Author Organization [facility] Address [facility] [place]-[id number] [address] [place] [address] Care Team Providers Care Journeyman Power Plant Operator Name Role Phone Janes Bowman MD Primary Care Provider [phone] Encounter Details Date Type Department Care Team (Late st Contact Info) Description 07/21/2022 Orders Only [facility] [address] [place] [phone] Brandon Solorzano, MANAGER OF PMO Social History Tobacco Use Types Packs/Day Years Used Date Smoking Tobacco: Never Assessed Childcare Answer Date Recorded Childcare Unknown 03/20/2019 [...] on filedocumented in this encounter Care Teams Journeyman Power Plant Operator Relationship Specialty Start Date End Date Janes Bowman MD PCP - General Family Medicine 06/30/22 documented as of this encounter
--- OUTSIDE RECORDS SUMMARY | 2025-07-23 13:29 | XMS_ITS | Encounter Summary ---
Author Organization [facility] Address [facility] [place]-[id number] [address] [place] [address] Care Team Providers Care Margin Clerk Name Role Phone Janes Bowman MD Primary Care Provider [phone] Encounter Details Date Type Department Care Team (Late st Contact Info) Description 06/30/2022 Orders Only [facility] [address] [place] [phone] Ref Prov, [place] [address] Social History Tobacco Use Types Packs/Day Years [...] on file documented as of this encounter Procedures Procedure Name Priority Date/Time Associated Diagnosis Comments ANKLE BRACHIAL INDEX Routine 06/30/2022 documented in this encounter Results * Ankle Brachial Index (06/30/2022) us Not In System Ref Prov PROCEDURE/MINOR SURGICAL ORDERABLES Final Result MANUALLY TRANSCRIBED RESULTS documented in this encounter Visit Diagnoses Not on filedocumented in this encounter Care Teams Margin Clerk Relationship Specialty Start Date End Date Janes Bowman MD PCP - General Family Medicine 06/30/22 documented as of this encounter
--- OUTSIDE RECORDS SUMMARY | 2025-07-23 13:30 | XMS_ITS | Clinical Summary ---
Author Organization [facility] Address [id number] [address] 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 11/18/2024 Active baclofen (LIORESAL) 10 mg tablet Take 1 tablet (10 mg total) by mouth 3 (three) times a day. 10/30/2024 Active lisinopriL (PRINIVIL,ZESTR IL) 10 mg tablet Take 1 tablet (10 mg total) by mouth in the morning. 11/24/2024 Active zonisamide (ZONEGRAN) 50 mg capsule Take 2 capsules (100 mg total) by mouth in the morning. 11/13/2024 Active cloNIDine (CATAPRES) 0.1 mg tablet Take 1 tablet (0.1 mg total) by mouth in the morning. Active atorvastatin (LIPITOR) 40 mg tablet Take 1 tablet (40 mg total) by mouth in the morning. Active clopidogreL (PLAVIX) 75 mg tablet Take 1 tablet (75 mg total) by mouth in the morning. Active aspirin 81 mg Take 1 tablet (81 mg total) by mouth in the morning. Active cefDINIR (OMNICEF) 300 mg capsule Take 2 capsules (600 mg total) by mouth in the morning and 2 capsules (600 mg total) before bedtime. 12/24/2024 Active doxycycline (MONODOX) 100 mg capsule Take 1 capsule (100 mg total) by mouth in the morning and 1 capsule (100 mg total) before bedtime. 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 Her wound almost healed completely. She is doing very well. Noninvasive testing she has only mild occlusive disease. Plan is continue aspirin Plavix and statin PVR and a graft duplex ultrasound and follow up in 6 months Assessment & Plan (11/28/2024 11:19 AM EST): I discussed with her the findings of the PVR and the CTA. She will need bilateral iliac stenting right lower extremity angiogram and intervention possible femorofemoral bypass. She will need cardiac risk stratification. Immunizations Immunization Administration Dates Next Due Td (adult), 5 Lf tetanus tox oid, preservative free, adsorbed 12/30/2011 Family History Medical History Relation Name Comments Cancer Father Diabetes Maternal Grandmother Cancer Mother Diabetes Sister Anesthesia problems Neg Hx Bleeding Disorder Neg Hx Breast cancer Neg Hx Clotting disorder Neg Hx Colon cancer Neg Hx Heart attack Neg Hx Ovarian cancer Neg Hx Stroke Neg Hx Relation Name Status Comments Brother Alive Father Maternal Grandfather Maternal Grandmother Mother Paternal Grandfather Paternal Grandmother Sister Alive Social History Tobacco Use Types Packs/Day Years Used Date Smoking Tobacco: Former Cigarettes 1 58.1 S tarted: 1966 Smokeless Tobacco: Never Tobacco Cessation:Counseling Given: Not Answered Alcohol Use Standard Drinks/Week Comments Defer 0 (1 standard drink = 0.6 oz pur e alcohol) [facility] Utilities Answer Date Recorded In the past 12 months has th e electric, gas, oil, or water company [...] got money to buy more. Never True 03/06/2025 Within the past 12 months th e food we bought just didn't last and we didn't have money to get more. Never True 03/06/2025 Comments No Sex and Gender Information Value Date Recorded Sex Assigned at Not on file Legal Sex Female 11:47 AM EDT Gender Identity Not on file Sexual Orientation Not on file Last Filed Vital Signs Vital Sign Reading Time Taken Comments Blood Pressure 156/74 03/06/2025 10:02 AM EDT Pulse 88 03/06/2025 10:02 AM EDT Temperature 36 C (96.8 F) 03/06/2025 10:02 AM EDT Respiratory Rate 14 12/19/2024 11:17 AM EDT Oxygen Saturation 97% 03/06/2025 10:02 AM EDT Inhaled Oxygen Concentration - - Weight 74.8 kg (165 lb) 03/06/2025 10:02 AM EDT Height 165.1 cm (5' 5 ) 03/06/2025 10:02 AM EDT Body Mass Index 27.46 03/06/2025 10:02 AM EDT Plan of Treatment Health Maintenance Due Date Last Done Comments Statin Use: Cardiovascular 1957 Adult BMI Follow Up Plan 1975 Zoster (Shingles) Vaccine (1 of 2) 2007 DTaP,Tdap and Td Vaccines (2 - Td or Tdap) 12/29/2021 12/30/2011 Fall Risk Screening 2022 Influenza Vaccine 06/09/2025 Depression Screening 12/17/2025 12/17/2024 Adult BMI Screening 03/06/2026 03/06/2025 Tobacco Screening 03/06/2026 03/06/2025 Goals Goal Patient Goal Type Associated Problems Recent Progress Patient-Stated? Author discharge home General Yes Lorenza Mcdonnell, RN Note: Evaluation of progress towards goal: progressing towards discharge Medical Devices Implanted Type Area Cuffing Machine Operator Device Identifier Shelf Expiration Date Model / Serial / Lot Graft Cv 60cm 7mm Thor 2 Pass Sw Wvn Hmsh Pl 2 Vlr Clgn Str - [id number] - [id number] Implanted:Qty : 1 on 12/17/2024 by Maldonado Prince MD at [facility] Graft Bilateral: Arterial [email or web address] 06/08/2029 [id number] / [id number] / [id number] Description:FEMORAL-FEMORAL ARTERY Patch Vsc 8x.8cm Xenosure Bvn Pricrd Tiss Strl Rpl [id number] - [id number] Implanted:Qty : 1 on 12/17/2024 by Maldonado Prince MD at [facility] Graft Left: Arterial LeMait[employer] 03/05/2030 E0.8P8 / / [id number] Description:LEFT FEMORAL ART DARCIE Patch Vsc 8x.8cm Xenosure Bvn Pricrd Tiss Strl Rpl [id number] - [id number] Implanted:Qty : 1 on 12/17/2024 by Maldonado Prince MD at [facility] Graft Left: Arterial [employer] 02/03/2030 E0.8P8 / / [id number] Description:LEFT FEMORAL ART DARCIE Patch Vsc 8x.8cm Xenosure Bvn Pricrd Tiss Strl Rpl [id number] - [id number] Implanted:Qty : 1 on 12/17/2024 by Maldonado Prince MD at [facility] Graft Right: Arterial LeMaitre 04/05/2030 E0.8P8 / / [id number] Description:RIGHT FEMORAL AR SANDRO Insurance MEDICARE Advance Directives * Full Code (Latest Code Status on File) Date Activated Date Inactivated Comments 12/17/2024 2:52 PM 12/19/2024 5:59 PM Care Teams Burrer Operator Relationship Specialty Start Date End Date Janes Bowman MD PCP - General Family Medicine 06/30/22
--- OUTSIDE RECORDS SUMMARY | 2025-07-23 13:30 | XMS_ITS | Clinical Summary ---
Author Organization [facility] Address [address] [place] [address] Care Team Providers Care Religion Instructor Name Role Phone Janes Bowman MD Primary Care Provider [phone] Allergies No known active allergies Medications aspirin 81 mg EC tablet Take 81 mg by mouth in the morning. Active atorvastatin (Lipitor) 40 mg tablet Take 40 mg by mouth in the morning. Active baclofen (Lioresal) 10 mg tablet Take 10 mg by mouth 3 times a day. 10/30/2024 Active cilostazol (Pletal) 100 mg tablet Take 100 mg by mouth in the morning and at bedtime. Active cloNIDine (Catapres) 0.1 mg tablet Take 0.1 mg by mouth in the morning. Active clopidogrel (Plavix) 75 mg tablet Take 75 mg by mouth in the morning. Active gabapentin (Neurontin) 300 mg capsule Take 300 mg by mouth 3 times a day. 11/18/2024 Active lisinopril 10 mg tablet Take 10 mg by mouth in the morning. 11/24/2024 Active zonisamide (Zonegran) 50 mg capsule Take 100 mg by mouth in the morning. 11/13/2024 Active Active Problems Problem Noted Date Diagnosed Date Claudication 12/02/2024 Critical limb ischemia of ri t lower extremity with gangrene 11/28/2024 Family History Medical History Relation Name Comments No Known Problems Father No Known Problems Mother Relation Name Status Comments Father Mother Social History Tobacco Use Types Packs/Day Years Used Date Smoking Tobacco: Former Cigarettes Smokeless Tobacco: Never Tobacco Cessation:Counseling Given: Not Answered Alcohol Use Standard Drinks/Week Comments Not Currently 0 (1 standard drink = 0.6 oz pur e alcohol) Comments Unknown Sex and Gender Information Value Date Recorded Sex Assigned at Not on file Legal Sex Female 12:03 AM EDT Gender Identity Not on file Sexual Orientation Not on file Last Filed Vital Signs Vital Sign Reading Time Taken Comments Blood Pressure 142/78 12/02/2024 10:38 AM EST Pulse 69 12/02/2024 10:38 AM EST Temperature - - Respiratory Rate - - Oxygen Saturation 98% 12/02/2024 10:38 AM EST Inhaled Oxygen Concentration - - Weight 74.8 kg (165 lb) 12/02/2024 10:38 AM EST Height 165.1 cm (5' 5 ) 12/02/2024 10:38 AM EST Body Mass Index 27.46 12/02/2024 10:38 AM EST Plan of Treatment Health Maintenance Due Date Last Done Comments CT Colonography 1957 Colonoscopy 1957 Colorectal Cancer Screening 1957 FIT-DNA 1957 FIT 1957 FOBT 1955 Medicare Annual Wellness (AWV) 1957 Sigmoidoscopy 1957 Depression Screening 1969 Mammogram 1997 Pneumococcal Vaccine: 50+ Ye ars (1 of 1 - PCV) 2007 Zoster Vaccines (1 of 2) 2007 Adult Tetanus 12/29/2021 12/30/2011 Fall Risk Screening 2022 COVID-19 Vaccine (1 - 2023-2 5 season) 2025 Influenza Vaccine (#1) 2025 HIB Vaccines Aged Out No longer eligi ble based on patient's age to complete this topic HPV Vaccines Aged Out No longer eligi ble based on patient's age to complete this topic IPV Vaccines Aged Out No longer eligi ble based on patient's age to complete this topic Meningococcal B Vaccine Aged Out No l onger eligible based on patient's age to complete this topic Meningococcal Vaccine Aged Out No paul ildefonso eligible based on patient's age to complete this topic Rotavirus Vaccines Aged Out No longer eligible based on patient's age to complete this topic Insurance MEDICARE Member Subscriber Plan / Payer (Ef fective 2023-Present) Name:FilemonhideandreIsaura Member ID:[id number] Relation to Subscriber:Self Name:FilemonIsaura oquendo Subscriber ID:[id number] Payer ID:[id number] Group ID:Not on file Type:Medicare Address: [facility] [place] [id number] Care Teams Religion Instructor Relationship Specialty Start Date End Date Janes Bowman MD [address] [place] [address] PCP - General 12/02/24
--- OUTSIDE RECORDS SUMMARY | 2025-07-23 13:30 | XMS_ITS | Encounter Summary ---
Author Organization [facility] Address [facility] [place]-[id number] [address] [place] [address] Care Team Providers Care Brushing Machine Operator Name Role Phone Janes Bowman MD Primary Care Provider [phone] Encounter Details Date Type Department Care Team (Late st Contact Info) Description 11/28/2024 Orders Only [facility] [address] [place] [phone] Ref Prov, [place] [address] Social History Tobacco Use Types Packs/Day Years [...] got money to buy more. Never True 11/28/2024 Within the past 12 months th e food we bought just didn't last and we didn't have money to get more. Never True 11/28/2024 Comments Unknown Sex and Gender Information Value Date Recorded Sex Assigned at Not on file Legal Sex Female 11:47 AM EDT Gender Identity Not on file Sexual Orientation Not on file documented as of this encounter Plan of Treatment Not on file documented as of this encounter Procedures Procedure Name Priority Date/Time Associated Diagnosis Comments VASC VENOUS DUPLEX LOWER RIGHT Routine 11/28/2024 7:58 AM EST VASC ARTERIAL DOPPLER LOWER BILATERAL MULTI LEVEL/PVR Routine 10/18/2024 8:11 AM EST documented in this encounter Results * Vas venous duplex lwr single right (11/28/2024 7:58 AM EST) Anatomical Region Laterality Modality Vascular Right Ultrasound us Not In System Ref Prov CV VASCULAR ORDERABLES Fi nal Result * Vas art doppler lwr bilat mult lev/PVR (10/18/2024 8:11 AM EST) Anatomical Region Laterality Modality Vascular Bilateral Ultrasound us Janes Bowman MD CV VASCULAR ORDERABLES Final Re sult documented in this encounter Visit Diagnoses Not on filedocumented in this encounter Care Teams Brushing Machine Operator Relationship Specialty Start Date End Date Janes Bowman MD PCP - General Family Medicine 06/30/22 documented as of this encounter
--- OUTSIDE RECORDS SUMMARY | 2025-07-23 13:30 | XMS_ITS | Patient Health Record ---
Author Organization [facility] in [place] Address [address] [place] [address] Care Team Providers Care Retail Sales Merchandiser Name Role Phone Jair Bowman Primary Care Provider Allergies No Known Allergies Results Component Value Reference Range Notes CBC AUTO DIFF Reviewed date:09/02/2024 02:01:03 PM Interpretation: Performing Lab: Notes/Report: [facility] , White Blood Count 10.6 4.0-11.0 10 3/uL Red Blood Count 5.29 4.20-5.40 10 6/uL Few target cells Microcytosis 2+ Few ovalocytes Hemoglobin 10.4 12.0-16.0 g/dL Hematocrit 33.4 36.0-48.0 % Mean Corpuscular Volume 63.1 81.0-99.0 fL Mean Corpuscular Hemoglobin 19.7 26.7-34.0 pg Mean Corpuscular HGB Conc 31.1 29.9-35.2 g/dL Red Cell Distribution Width 16.1 11.0-15.0 % Platelet Count 319 150-450 10 3/uL Mean Platelet Volume 10.1 9.5-13.5 fL Neutrophils Percent Auto 78.3 43.0-75.0 % Lymphocytes Percent Auto 15.6 20.5-60.0 % Monocytes Percent Auto 4.9 1.7-12.0 % Eosinophils Percent Auto 0.2 0.9-7.0 % Basophils Percent Auto 0.5 0.2-2.0 % Immature Granulocytes Pct Auto 0.5 0.0-0.5 % Neutrophils Absolute Auto 8.3 1.4-6.5 10 3/uL Lymphocytes Absolute Auto 1.7 1.2-3.8 10 3/uL Monocytes Absolute Auto 0.5 0.3-0.8 10 3/uL Eosinophils Absolute Auto 0.0 0.0-0.7 10 3/uL Basophils Absolute Auto 0.1 0.0-0.1 10 3/uL Immature Granulocytes Abs Auto 0.05 0.00-0.03 10 3/uL Performing Lab: see note ML - [facility] PROF CHEM 8 (BAS METB) Reviewed date:09/02/2024 02:01:03 PM Interpretation: Performing Lab: Notes/Report: [facility] , Sodium 136 136-145 mmol/L Potassium 3.9 3.5-5.1 mmol/L Chloride 102 98-107 mmol/L Carbon Dioxide 19.1 21.0-32.0 mmol/L Anion Gap 18.8 Glucose 133 74-106 mg/dL Blood Urea Nitrogen 18.0 7.0-18.0 mg/dL Creatinine 1.43 0.55-1.02 mg/dL Estimated GFR ( Marisela 44 >=60 mL/mi n/1.73m 2 Estimated GFR (Non- Heidy 37 >=60 mL/mi n/1.73m 2 BUN Creatinine Ratio 12.6 Calcium 9.0 8.5-10.1 mg/dL Performing Lab: see note ML - [facility] XR hip RT 2V w/ pelvis Reviewed date:09/02/2024 02:01:03 PM Interpretation: Performing Lab: Notes/Report: Source Facility: [place] [address] [place] [address] XRay Report Signed Patient: BHAVYA RUIZ MR#: [id number] : 1955 Acct:[id number] Age/Sex: 69 / F ADM Date: 08/31/24 Loc: ER Attending Dr: Ordering Physician: Darren Farrar Date of Service: 08/31/24 Procedure(s): XR hip RT 2V w/ pelvis Accession Number(s): [id number] cc: Darren Farrar; Skye Bowman M.D. [place] [address] Patient Name: BHAVYA RUIZ MRN: [id number] date: 1955 Sex: F Assigned Patient Location: ER Current Patient Location: ER Accession/Order Number: [id number] Exam Date: 08/31/2024 22:55 Report Date: 09/01/2024 02:03 At the request of: DARREN FARRAR Procedure: XR hip RT 2V w/ pelvis XR hip RT 2V w/ pelvis: HISTORY: right hip pain right hip pain COMPARISON: None available. TECHNIQUE: 3 right hip/bony pelvis views are submitted. FINDINGS: BONES/JOINT SPACES: There is no acute fracture or dislocation. Mild degenerative osteoarthritis is present in the hip joints. The contour of each femoral head is well-maintained. Pelvic ring structures are preserved. SOFT TISSUES: The soft tissues are unremarkable. XR/XR hip RT 2V w/ pelvis IMPRESSION: Mild degenerative osteoarthritis in both hip joints. Unremarkable plain film examination otherwise. Electronically authenticated by: ALICIA DUFF Date: 09/01/2024 02:03 Dictated By: Alicia Duff M.D. Signed By: 09/01/24204 DD/ 2 TD/TT: [employer]: XR lumbar spine min 4V Reviewed date:10/09/2024 03:14:09 PM Interpretation: Performing Lab: Notes/Report: Source Facility: [place] [address] [place] [address] XRay Report Signed Patient: BHAVYA RUIZ MR#: [id number] : 1955 Acct:[id number] Age/Sex: 69 / F ADM Date: 10/07/24 Loc: RAD Attending Dr: Skye Bowman M.D. Ordering Physician: Skye Bowman M.D. Date of Service: 10/07/24 Procedure(s): XR lumbar spine min 4V Accession Number(s): [id number] cc: Skye Bowman M.D. [place] [address] Patient Name: BHAVYA RUIZ MRN: [id number] date: 1955 Sex: F Assigned Patient Location: RAD Current Patient Location: Accession/Order Number: [id number] Exam Date: 10/07/2024 17:32 Report Date: 10/08/2024 07:51 At the request of: SKYE BOWMAN Procedure: XR lumbar spine min 4V EXAMINATION: XR lumbar spine min 4V HISTORY: Lumbar radiculopathy, M54.16 COMPARISON: No relevant comparison available. FINDINGS: BONES: Normal alignment with no acute fracture or spondylolisthesis. Moderate spondylosis and facet osteoarthropathy DISC SPACES: Moderate narrowing L5-S1 with endplate sclerosis PARASPINOUS: Negative. No paraspinous abnormality is seen. OTHER: Extensive vascular calcifications XR/XR lumbar spine min 4V IMPRESSION: Moderate degenerative changes Electronically authenticated by: FARIBA WOLF Date: 10/08/2024 07:51 Dictated By: Fariba Wolf M.D. Signed By: 10/08/24 0753 DD/ 0 TD/TT: [employer]: MR lumbar spine wo con Reviewed date:10/14/2024 02:28:25 PM Interpretation: Performing Lab: Notes/Report: Source Facility: [place] [address] Magnetic Resonance Report Signed Patient: BHAVYA RUIZ MR#: [id number] : 1955 Acct:[id number] Age/Sex: 69 / F ADM Date: 10/14/24 Loc: MRI Attending Dr: Skye Bowman M.D. Ordering Physician: Skye Bowman M.D. Date of Service: 10/14/24 Procedure(s): MR lumbar spine wo con Accession Number(s): [id number] cc: Skye Bowman M.D. [place] [address] Patient Name: BHAVYA RUIZ MRN: [id number] date: 1955 Sex: F Assigned Patient Location: MRI Current Patient Location: MRI Accession/Order Number: [id number] Exam Date: 10/14/2024 12:50 Report Date: 10/14/2024 14:04 At the request of: SKYE BOWMAN Procedure: MR lumbar spine wo con EXAM: MR lumbar spine wo con HISTORY: Lumbar radiculopathy. COMPARISON: 10/07/2024 TECHNIQUE: MRI images obtained with multiple sequences. MRI of the lumbar spine without contrast. Sequences obtained by standard department protocol. FINDINGS: The conus ends at L1-L2. No abnormal signal of the terminal spinal cord. T11-T12 through L1-L2: No spinal canal stenosis or neural foraminal stenosis. L2-L3: Mild disc degeneration. No spinal canal stenosis. No neural foraminal stenosis. Facet joints are normal. L3-L4: Mild disc degeneration. Lateral recess narrowing in position to irritate the traversing bilateral L4 nerve roots. Mild facet joint arthropathy. L4-L5: Intervertebral disc degeneration. Central posterior disc extrusion, disc material extending posterior to the L4 vertebral body. Lateral recess narrowing in position to irritate the traversing bilateral L5 nerve roots. Mild facet joint arthropathy. Mild spinal canal narrowing. Mild left neural foraminal narrowing. Mild right neural foraminal narrowing. L5-S1: Moderate disc degeneration. Central posterior disc protrusion. No spinal canal stenosis. Moderate to severe right neural foraminal narrowing. Moderate to severe left neural foraminal narrowing. Mild facet joint arthropathy. No acute fractures. Vertebral body height is preserved. Mild degeneration of the sacroiliac joints. MR/MR lumbar spine wo con IMPRESSION: 1. Moderate to severe bilateral L5-S1 neural foraminal narrowing. 2. Lateral recess narrowing at L4-L5 in position to irritate the traversing bilateral L5 nerve roots. 3. Lateral recess narrowing at L3-L4 in position to irritate the traversing bilateral L4 nerve roots. 4. No acute fractures. 5. Other findings as described. Electronically authenticated by: DAE LIU Date: 10/14/2024 14:04 Dictated By: Dae Liu M.D. Signed By: 10/14/24 1407 DD/ 1404 TD/TT: [employer]: VC NIKITA BAILEY Reviewed date:10/20/2024 09:44:49 AM Interpretation: Performing Lab: Notes/Report: Source Facility: [facility] [place] [address] Vein Report Signed Patient: BHAVYA RUIZ MR#: [id number] : 1955 Acct:[id number] Age/Sex: 69 / F ADM Date: 10/18/24 Loc: VC Attending Dr: Skye Bowman M.D. Ordering Physician: Skye Bowman M.D. Date of Service: 10/18/24 Procedure(s): VC SEGMENTAL PRESSURES Accession Number(s): [id number] cc: Skye Bowman M.D. [place] [address] Patient Name: BHAVYA RUIZ MRN: [id number] date: 1955 Sex: F Assigned Patient Location: Current Patient Location: Accession/Order Number: [id number] Exam Date: 10/18/2024 11:02 Report Date: 10/18/2024 16:16 At the request of: SKYE BOWMAN Procedure: VC SEGMENTAL PRESSURES EXAM: VC SEGMENTAL PRESSURES. HISTORY: R09.8,9 vascular disease. COMPARISON: None. TECHNIQUE: Segmental pressure measurements and ABIs. FINDINGS: Right resting YESSY is 0.29. Left resting YESSY is 0.88. On the right there is a pressure gradient from the brachial cuff to the thigh cuff as well as a pressure gradient from the proximal thigh cuff to the distal thigh cuff. No flow could be demonstrated within the dorsalis pedis artery. On the left there is a mild gradient from the proximal calf cuff to the distal calf cuff. VEIN/VC SEGMENTAL PRESSURES IMPRESSION: 1. Right resting YESSY in the severe claudication range with probable iliac and superficial femoral artery disease. 2. Left resting YESSY in the mild claudication range with probable tibial vessel disease. Electronically authenticated by: Leonardo RODRIGUEZ Date: 10/18/2024 16:16 Dictated By: Leonardo Rodriguez M.D. Signed By: 10/18/24 1618 DD/ 15 TD/TT: [employer]: US venous doppler LE BI Reviewed date:11/18/2024 07:11:57 PM Interpretation: Performing Lab: Notes/Report: Source Facility: [place] [address] Ultrasound Report Signed Patient: BHAVYA RUIZ MR#: [id number] : 1955 Acct:[id number] Age/Sex: 69 / F ADM Date: 11/18/24 Loc: US Attending Dr: Garrison Duenas M.D. Ordering Physician: Garrison Duenas M.D. Date of Service: 11/18/24 Procedure(s): US venous doppler LE RT Accession Number(s): [id number] cc: Garrison Duenas M.D.; Skye Bowman M.D. [facility] [place] [id number] Patient Name: BHAVYA RUIZ MRN: [facility]:[id number] date: 1955 Sex: F Assigned Patient Location: Current Patient Location: US Accession/Order Number: [id number] Exam Date: 11/18/2024 16:09 Report Date: 11/18/2024 18:06 At the request of: GARRISON DUENAS Procedure: US venous doppler LE RT CLINICAL DATA: Evaluate for venous thrombosis. PROCEDURE: Right lower extremity venous duplex ultrasound. TECHNIQUE: Casanova-scale, color flow, and waveform spectral analysis was performed of the right lower extremity. FINDINGS: The right common femoral, profunda femoral, femoral, and popliteal veins were compressible. The saphenous vein was compressible. No venous thrombosis was seen. The veins fill with color Doppler. Augmentation was normal. US/US venous doppler LE RT IMPRESSION: 1. No acute lower extremity deep venous thrombosis. 2. No superficial venous thrombosis. Electronically authenticated by: Leonardo RODRIGUEZ Date: 11/18/2024 18:06 Dictated By: Leonardo Rodriguez M.D. Signed By: 11/18/241808 DD/ 05 TD/TT: [employer]: JOYCE AUTO DIFF Reviewed date:11/26/2024 08:33:58 PM Interpretation: Performing Lab: Notes/Report: [facility] , White Blood Count 9.1 4.0-11.0 10 3/uL Red Blood Count 4.80 4.20-5.40 10 6/uL Hemoglobin 9.5 12.0-16.0 g/dL Hematocrit 30.8 36.0-48.0 % Mean Corpuscular Volume 64.2 81.0-99.0 fL Mean Corpuscular Hemoglobin 19.8 26.7-34.0 pg Mean Corpuscular HGB Conc 30.8 29.9-35.2 g/dL Red Cell Distribution Width 17.0 11.0-15.0 % Platelet Count 229 150-450 10 3/uL Mean Platelet Volume 10.0 9.5-13.5 fL Performing Lab: see note - [facility] PROF CHEM 8 (BAS METB) Reviewed date:11/26/2024 08:33:58 PM Interpretation: Performing Lab: Notes/Report: [facility] , Sodium 141 136-145 mmol/L Potassium 3.9 3.5-5.1 mmol/L Chloride 107 98-107 mmol/L Carbon Dioxide 25.3 21.0-32.0 mmol/L Anion Gap 12.6 Glucose 113 74-106 mg/dL Blood Urea Nitrogen 20.0 7.0-18.0 mg/dL Creatinine 1.03 0.55-1.02 mg/dL Estimated GFR ( Marisela >60 >=60 mL/mi n/1.73m 2 Estimated GFR (Non- Heidy 53 >=60 mL/mi n/1.73m 2 BUN Creatinine Ratio 19.4 Calcium 8.8 8.5-10.1 mg/dL Performing Lab: see note ML - [facility] PTT Reviewed date:11/26/2024 08:33:58 PM Interpretation: Performing Lab: Notes/Report: [facility] , Partial Thromboplastin Time 24.9 22.3-36.2 sec Performing Lab: see note - [facility] LB Prothrombin Time INR Reviewed date:11/26/2024 08:33:58 PM Interpretation: Performing Lab: Notes/Report: [facility] , Prothrombin Time 10.3 9.0-11.6 sec INR 0.97 2.5-3.5 FOR PROSTHETIC HEART VALVE REPLACEMENT DESIRED INR: 2.5-3.5 RECURRENT THROMBOSIS 2.0-3.0 CONDITIONS NOT LISTED BELOW Performing Lab: see note ML - [facility] LB Manual Differential Reviewed date:11/26/2024 08:33:58 PM Interpretation: Performing Lab: Notes/Report: [facility] , Segmented Neutrophils % Manual 64.0 43.0-75.0 Lymphocytes Percent Manual 28.0 20.5-60.0 % Monocytes Percent Manual 8.0 1.7-12.0 % Eosinophils Percent Manual 0.0 0.9-7.0 % Basophils Percent Manual 0.0 0.2-2.0 % Segmented Neut Absolute Manual 5.82 1.4-6.5 10 3/uL Lymphocytes Absolute Manual 2.54 1.20-3.80 10 3/uL Monocytes Absolute Manual 0.72 0.30-0.80 10 3/ uL Eosinophils Absolute Manual 0.00 0.00-0.70 10 3/uL Basophils Abs Manual 0.00 0.00-0.10 10 3/uL Hypochromasia 1+ Poikilocytosis 1+ Anisocytosis 1+ Microcytosis 2+ Ovalocytes 1+ Performing Lab: see note ML - [facility] LB CA echo doppler complete Reviewed date:12/10/2024 07:36:10 PM Interpretation: Performing Lab: Notes/Report: Source Facility: [facility] [place] [address] [place] [address] Cardiology Report Signed Patient: BHAVYA RUIZ MR#: [id number] : 1955 Acct:[id number] Age/Sex: 69 / F ADM Date: Loc: CARD Attending Dr: WILLIAM ORANTES Ordering Physician: WILLIAM ORANTES Date of Service: 12/10/24 Procedure(s): CA echo doppler complete Accession Number(s): [id number] cc: WILLIAM ORANTES; Skye Bowman M.D. Patient Name: BHAVYA RUIZ MR#: [id number] : 1955 Exam Date: 12/10/2024 Ordering Doctor: WILLIAM ORANTES M.D. ECHOCARDIOGRAM REPORT PROCEDURE: CA ECHO DOPPLER COMPLETE INDICATIONS: Abnormal ECG, smoker, hypertension COMPARISON: None. DESCRIPTION: COMPLETE ECHOCARDIOGRAM Real-time transthoracic echocardiography with 2D, M-mode, spectral and color flow Doppler performed. QUALITY: Technical quality was good. LEFT VENTRICLE: Normal chamber size. Mild concentric left ventricular hypertrophy. Normal systolic function. LV EF: Normal left ventricular ejection fraction, (65%). DIASTOLIC: Diastolic function is indeterminate. ATRIAL SEPTUM: Visually appears intact. LEFT ATRIUM: Mild dilatation. RIGHT ATRIUM: Normal chamber size. RIGHT VENTRICLE: Normal chamber size. Normal right ventricular systolic function. Unable to assess right-sided pressures due to lack of measurable tricuspid regurgitation. TRICUSPID VALVE: Normal mobility and thickness. No stenosis with no regurgitation. MITRAL VALVE: Normal mobility and thickness. No evidence of mitral valve stenosis. There is no mitral annular calcification. No mitral regurgitation. AORTIC VALVE: Normal trileaflet appearance. No visible sclerosis. Normal leaflet mobility. No evidence of aortic valve stenosis. No aortic regurgitation. AORTIC ROOT: Normal diameter and appearance, measuring 3.1 cm. Ascending aorta is normal in size, measuring 3.0 cm. PULMONIC VALVE: Normal thickness and mobility. No stenosis. No regurgitation. PERICARDIUM: No evidence of pericardial effusion. IVC: Collapses with inspirations. IVC is normal in size. PLEURA: CONCLUSION: 1. Mild concentric left ventricular hypertrophy with normal systolic function. Estimated LVEF is 65%. 2. Normal right ventricular size and systolic function. 3. No significant valvular dysfunction. 4. Unable to assess right-sided pressures due to lack of measurable tricuspid regurgitation. Adult Echocardiography Procedure Report Left Ventricle LVEDD (3.7 - 5.6 cm): 4.15 cm LVESD (2.2 - 4.0 cm): 3.05 cm LVIVS thickness (0.6 - 1.2 cm): 1.04 cm LVPW thickness (0.5 - 1.0 cm): 1.15 cm e': 0.11 m/s E - e': 6.17 LVOT Max Gradient: 5.10 mm[Hg] LVOT Area (cm2): 1.13 m/s Peak Velocity (LVOT): 1.13 m/s Mean Velocity (LVOT): 0.72 m/s LVOT Diameter 2.20 cm Left Atrium LA Volume Index (2D A2C): 44.79 ml/m2 Left Atrium Systolic Dimension: 3.69 cm Mitral Valve MV E to A Ratio: 0.81 Mitral Valve A-Wave Peak Velocity: 0.82 m/s Mitral Valve E-Wave Peak Velocity: 0.66 m/s Right Ventricle Aorta AO Root Diam: 3.06 cm Ascending Ao Diam: 3.02 cm Aortic Valve AoV Area (Peak Matias): 2.37 cm2, 2.37 cm2 AoV Area (VTI): 2.25 cm2, 2.25 cm2 Peak Velocity(Antegrade Flow): 1.80 m/s Peak Gradient(Antegrade Flow): 13.00 mm[Hg] Mean Velocity(Antegrade Flow): 1.08 m/s Mean Gradient(Antegrade Flow): 5.56 mm[Hg] Velocity Time Integral: 34.27 cm Tricuspid Valve Pulmonic Valve Mean Gradient: 2.56 mm[Hg] Mean Velocity: 0.74 m/s Peak Velocity: 1.13 m/s, 1.07 m/s Peak Gradient: 5.08 mm[Hg], 4.61 mm[Hg] Right Atrium Right Atrium Systolic Pressure: 42.26 ml, 42.26 ml Dictated by: Patric Hemphill M.D. on 12/10/2024 at 19:28 Approved by: Patric Hemphill M.D. on 12/10/2024 at 19:30 Dictated By: PATRIC HEMPHILL Signed By: 12/10/241931 DD/ 29 TD/TT: [employer]: CA segmental UE or LE BABATUNDE Reviewed date:12/12/2024 08:35:48 PM Interpretation: Performing Lab: Notes/Report: Source Facility: [place] [address] [place] [address] Cardiology Report Signed Patient: BHAVYA RUIZ MR#: [id number] : 1955 Acct:[id number] Age/Sex: 69 / F ADM Date: 12/10/24 Loc: CARD Attending Dr: Richy Espino M.D. 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 Interpretive Statements Summary of the findings: Right leg: YESSY= 0.23; TBI= 0.41. Doppler waveforms demonstrate monophasic flow at the posterior tibial artery and absent flow at the dorsalis pedis artery. Left leg: YESSY= 0.96; TBI= 0.64. Doppler waveforms demonstrate monophasic flow at the posterior tibial and dorsalis pedis arteries. Segmental pressures: Segmental pressures indicate right inflow and right femoropopliteal disease, and left infrapopliteal disease. Pulse volume recordings: PVRs at the high thigh, below knee, and ankle levels show severely reduced flow on the right at all levels and normal waveforms on the left. Conclusion: Right and left ankle-brachial indices are suggestive of severely reduced arterial flow on the right and borderline overall arterial flow on the left at rest. Toe-brachial indices are suggestive of PAD. Segmental pressures show right inflow and right femoropopliteal disease, and left infrapopliteal disease. Pulse volume recordings indicate severely reduced right-sided and normal left-sided overall resting arterial flow. The study shows evidence of bilateral lower extremity PAD with severely reduced right lower extermiety overall arterial flow at rest. Electronically Signed On 12-12-2024 6:05:49 EST by PATRIC HEMPHILL M.D. Dictated By: PATRIC HEMPHILL Signed By: 12/12/2460512/12/24605 DD/ 1549 TD/TT: [employer]: CBC AUTO DIFF Reviewed date:12/20/2024 12:53:16 PM Interpretation: Performing Lab: Notes/Report: [facility] , White Blood Count 12.5 4.0-11.0 10 3/uL Red Blood Count 4.36 4.20-5.40 10 6/uL Hemoglobin 8.9 12.0-16.0 g/dL Hematocrit 28.4 36.0-48.0 % Mean Corpuscular Volume 65.1 81.0-99.0 fL Mean Corpuscular Hemoglobin 20.4 26.7-34.0 pg Mean Corpuscular HGB Conc 31.3 29.9-35.2 g/dL Red Cell Distribution Width 18.7 11.0-15.0 % Platelet Count 302 150-450 10 3/uL Mean Platelet Volume 10.5 9.5-13.5 fL Neutrophils Percent Auto 72.7 43.0-75.0 % Lymphocytes Percent Auto 18.7 20.5-60.0 % Monocytes Percent Auto 7.2 1.7-12.0 % Eosinophils Percent Auto 0.5 0.9-7.0 % Basophils Percent Auto 0.3 0.2-2.0 % Immature Granulocytes Pct Auto 0.6 0.0-0.5 % Neutrophils Absolute Auto 9.1 1.4-6.5 10 3/uL Lymphocytes Absolute Auto 2.3 1.2-3.8 10 3/uL Monocytes Absolute Auto 0.9 0.3-0.8 10 3/uL Eosinophils Absolute Auto 0.1 0.0-0.7 10 3/uL Basophils Absolute Auto 0.0 0.0-0.1 10 3/uL Immature Granulocytes Abs Auto 0.08 0.00-0.03 10 3/uL Performing Lab: see note ML - [facility] LB MAGNESIUM Reviewed date:12/20/2024 12:53:16 PM Interpretation: Performing Lab: Notes/Report: [facility] , Magnesium 2.3 1.8-2.4 mg/dL Performing Lab: see note ML - [facility] LB PROF 14(COMP METB) Reviewed date:12/20/2024 12:53:16 PM Interpretation: Performing Lab: Notes/Report: [facility] , Sodium 137 136-145 mmol/L Potassium 3.7 3.5-5.1 mmol/L Chloride 102 98-107 mmol/L Carbon Dioxide 27.1 21.0-32.0 mmol/L Anion Gap 11.6 Glucose 121 74-106 mg/dL Blood Urea Nitrogen 16.0 7.0-18.0 mg/dL Creatinine 1.14 0.55-1.02 mg/dL Estimated GFR ( Marisela 58 >=60 mL/mi n/1.73m 2 Estimated GFR (Non- Heidy 48 >=60 mL/mi n/1.73m 2 BUN Creatinine Ratio 14.0 Calcium 8.8 8.5-10.1 mg/dL Bilirubin Total 0.9 0.2-1.0 mg/dL Aspartate Amino Transferase 82 15-37 U/L Alanine Aminotransferase 105 14-59 U/L Alkaline Phosphatase 161 46-116 U/L Total Protein 6.9 6.4-8.2 g/dL Albumin Level 2.7 3.4-5.0 g/dL Globulin 4.2 Albumin Globulin Ratio 0.6 Performing Lab: see note - [facility] LB Troponin I High Sensitivity Reviewed date:12/20/2024 12:53:16 PM Interpretation: Performing Lab: Notes/Report: [facility] , Troponin I High Sensitivity 8.7 4.0-51.3 pg/m L UNIVERSAL DEFINITION OF MYOCARDIAL INFARCTION. THE UPPER 99TH PERCENTILE = 51.4 PG/ML HAS BEEN CONFIRMED THE DECISION THRESHOLD FOR ID NOTE: HIGH-SENSITIVITY TROPONIN ASSAY IS NOT INTENDED TO BE DIAGNOSIS. WITH OTHER DIAGNOSTIC AND CLINICAL INFORMATION. CUT-OFF POINTS HAVE BEEN ESTABLISHED BASED ON THE FOURTH USED IN ISOLATION BUT SHOULD BE INTERPRETED IN CONJUNCTION PERCENTILE OF cTnI DISTRIBUTION IN A REFERENCE POPULATION, REFERENCE LIMIT (URL) OF TROPONIN, DEFINED THE 99TH Performing Lab: see note - [facility] LB ECG 12 lead Reviewed date:12/20/2024 12:53:16 PM Interpretation: Performing Lab: Notes/Report: Source Facility: [facility] [place] [address] Electrocardiograph Report Signed Patient: BHAVYA RUIZ MR#: [id number] : 1955 Acct:[id number] Age/Sex: 69 / F ADM Date: 12/20/24 Loc: ER Attending Dr: Ordering Physician: Geoffrey Constantino Date of Service: 12/20/24 Procedure(s): ECG 12 lead Accession Number(s): [id number] cc: [facility] Test Date: 2024-12-20 Pat Name: BHAVYA RUIZ Department: Room: - 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 Measurements Intervals [place] Rate: 98 P: 61 CO: 160 QRS: 42 QRSD: 84 T: 65 QT: 342 QTc: 397 Interpretive Statements 1100 Sinus rhythm [address] depression [address] [place] abnormality 9150 abnormal ECG Compared to ECG 11/10/2017 04:10:09 ST (T wave) deviation now present Myocardial infarct finding no longer present Electronically Signed On 12-20-2024 9:26:07 EDT by PATRIC HEMPHILL M.D. Dictated By: PATRIC HEMPHILL Signed By: 12/20/24925 DD/ 6 TD/TT: [employer]: CA segmental UE or LE BABATUNDE Reviewed date:01/22/2025 09:45:57 AM Interpretation: Performing Lab: Notes/Report: Source Facility: [place] [address] Cardiology Report Signed Patient: BHAVYA RUIZ MR#: [id number] : 1955 Acct:[id number] Age/Sex: 69 / F ADM Date: 01/21/25 Loc: CARD Attending Dr: Maldonado Prince M.D. Ordering Physician: Maldonado Prince M.D. Date of Service: 01/21/25 Procedure(s): CA segmental UE or LE BABATUNDE Accession Number(s): [id number] cc: Skye Bowman M.D.; Maldonado Prince M.D. 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 Interpretive Statements Summary of the findings: Right leg: YESSY= 0.86; TBI= 0.42. Doppler waveforms demonstrate monophasic flow at the posterior tibial and dorsalis pedis arteries. Left leg: YESSY= 0.8; TBI= 0.49. Doppler waveforms demonstrate monophasic flow at the posterior tibial and dorsalis pedis arteries. Segmental pressures: Segmental pressures demonstrate mild right femoropopliteal disease and significant left inflow disease. Pulse volume recordings: PVRs at the high thigh, below knee, and ankle levels show mildly dampened waveforms on the right and significantly dampened waveforms on the left. Conclusion: Right and left ankle-brachial indices are suggestive of mildly reduced overall arterial flow at rest. Toe-brachial indices are suggestive of PAD. The study shows evidence of PAD with reduced overall arterial flow at rest bilaterally with suggestion of moderate right femoropopliteal disease and significant left inflow disease. Significant arm pressure difference is suggestive of signficant right subclavian and/or innominate stenosis. Electronically Signed On 01-21-2025 19:28:05 EDT by PATRIC HEMPHILL M.D. Dictated By: PATRIC HEMPHILL Signed By: 01/21/25192701/21/251927 DD/ 1352 TD/TT: [employer]: Reason For Referral Reason + FH colon cancer Diagnosis 1 Well adult (Z00.00) Referral Organization [facility] Referring Provider First Name Jair Referring Provider Last Name [facility] Referring Provider [facility] Referred Provider Channing Talley Referred Provider Specialty Surgery Referral Priority Routine Diagnosis 1 Lumbar radiculopathy (M54.16) Referral Organization [facility] Referring Provider First Name Jair Referring Provider Last Name Colby [facility] Referred Provider Pain Management, [facility] Referred Provider Specialty Pain Medicin e Referral Priority Routine Reason Please schedule vasquez ent OSMAR! Thank You. Diagnosis 1 Severe claudication (I73.9) Referral Organization [facility] Referring Provider First Name Jair Referring Provider Last Name [facility] Referring Provider [facility] icine Referred Provider Maldonado Prince Referred Provider Specialty Vascular Lexie randy Referral Priority Routine Medications Medication SIG (Take, Route, Frequency, Duration) Notes Start Date End Date Status Cilostazol 100 MG 1 tablet Orally Twice a day; Duration: 30 days Active Norvasc 5 MG 1 tablet Orally Once a day; Duration: 30 days 07/10/2025 Active Plavix 75 MG 1 tablet Orally Once a day 12/24/2024 Active Atorvastatin Calcium 40 MG 1 tablet Orally Once a day; Duration: 90 days 12/24/2024 Active Gabapentin 300 MG 1 in amd and 3 at hs Orally bid Pain management Active Lisinopril 10 mg TAKE 1 TABLET BY MOUTH ONCE DAILY po daily; Duration: 30 days Active Social History Tobacco Use: Social History Observation Description Date Details (start date - stop date) Former Smoker 12/07/1984 - 11/23/2024 Alcohol Screen (Audit-C) Question Answer Notes Did you have a drink contain ing alcohol in the past year? Yes How many drinks did you have on a typical day when you were drinking in the past year? 1 or 2 drinks (0 point) How often did you have a dri nk containing alcohol in the past year? Less than monthly (1 point) Points 1 Interpretation Negative Tobacco Control (Standard) Question Answer Notes Tobacco use: Former smoker When did you start smoking? 12/07/1984 When did you stop smoking? 11/23/2024 How long has it been since you last smoked? Less than 1 month AUDIT-C (Standard) Question Answer Notes Did you have a drink containing alcohol in the p ast year? No Points 0 Interpretation Negative Problems Problem Type SNOMED Code ICD Code Onset Dates Problem Status W/U Status Risk Notes Problem Hypertension (62161538) Hypertension (I10) Active confirmed Problem COPD - Chronic obstructive pulmonary disease (64867602) COPD (chronic obstructive pulmonary disease) (J44.9) Active confirmed Problem Gastroesophageal reflux disease (763002476) GERD (gastroesophageal reflux disease) (K21.9) Active confirmed Problem Edema (31805972) Edema (R60.9) Active confirmed Problem Smoker (66268941) Smoker (F17.200) Active confi rmed Problem Peripheral neuropathy (170243568) Peripheral neuropathy (G62.9) Active confirmed Problem Lumbar radiculopathy (432777469) Lumbar radiculopathy (M54.16) Active confirmed Problem Cellulitis (714361675) Cellulitis (L03.90) Active confirmed Problem 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) Active confirmed Problem Peripheral vascular disease (880987635) Severe claudication (I73.9) Active confirmed Problem 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) (08181037149367498) Atherosclerosis of [place] artery of right lower extremity with ulceration of midfoot (I70.234) Active confirmed Vital Signs Blood pressure diastolic 122 mm Hg 07/10/2025 Height 65 in 07/10/2025 Blood pressure systolic 186 mm Hg 07/10/2025 Weight 181.6 lbs 07/10/2025 BMI 30.22 kg/m2 07/10/2025 Procedures Procedure Date Ordered Date Performed Result Body Sit e YESSY Segmental Pressure Study of Lower Extremity 10/07/2024 N/A EMG Nerve Conduction Study L egs (bilateral) 03/31/2025 N/A Encounters Encounter Location Date Provider Diagnosis [address] [address] 05/06/2025 Jair Hoy Edema R60.[address] [address] 07/10/2025 Jair Hoy Hypertension I10 ; C OPD (chronic obstructive pulmonary disease) J44.9 ; Severe claudication I73.9 ; Peripheral neuropathy G62.9 and Hip pain M25.[address] [address] 10/07/2024 Jair Hoy Hypertension I10 and Lumbar radiculopathy M54.[address] [address] 12/24/2024 Jair Hoy Hypertension I10 ; G ERD (gastroesophageal reflux disease) K21.9 ; COPD (chronic obstructive pulmonary disease) J44.9 and Cellulitis L03.[address] [address] 03/31/2025 Jair Hoy Peripheral neuropath y G62.[address] [address] 11/22/2024 Jair Hoy Cellulitis L03.[address] [address] 09/02/2024 Jair Hoy Lumbar radiculopathy M54.16 and Well adult Z00.[address] [address] 10/09/2024 Jair Hoy Lumbar radiculopathy M54.16 and Numbness in feet R20.0 [facility] [address] [place] [place] [address] 10/14/2024 Jair Bowman [facility] [address] [place] [address] 10/20/2024 Jair Bowman Severe claudication I73.9 [facility] [address] [place] [address] 11/26/2024 Jair Leony [facility] [address] [place] [address] 12/12/2024 Jair Leony [facility] [address] [place] [address] 12/27/2024 Jair Hoy Hypertension I10 [facility] [address] [place] [address] 01/27/2025 Jair Leony [facility] [address] [place] [address] 01/27/2025 Jair Leony [facility] [address] [place] [address] 02/10/2025 Jair Leony [facility] [address] [place] [address] 03/31/2025 Jair Leony Peripheral neuropath y G62.9 [facility] [address] [place] [address] 03/31/2025 Jair Leony [facility] [place] [address] [place] [facility] [address] 04/18/2025 Jair Hoy Hypertension I10 [facility] [address] [place] [facility] [place] [address] 07/14/2025 Jair Hoy Lumbar radiculopathy M54.16 Assessments Encounter Date Diagnosis (ICD Code) Assessment Notes Treatment Notes Treatment Clinical Notes Section Notes 09/02/2024 Lumbar radiculopathy (ICD-10 - M54.16) 09/02/2024 Well adult (ICD-10 - Z00.00) 10/07/2024 Hypertension (ICD-10 - I10) 10/07/2024 Lumbar radiculopathy (ICD-10 - M54.16) trying 3 tizanidine 11/22/2024 Cellulitis (ICD-10 - L03.90) 12/24/2024 Hypertension (ICD-10 - I10) 12/24/2024 GERD (gastroesophageal reflux disease) (ICD-10 - K21.9) 03/31/2025 Peripheral neuropathy (ICD-10 - G62.9) 05/06/2025 Edema (ICD-10 - R60.9) 07/10/2025 Hypertension (ICD-10 - I10) 07/10/2025 COPD (chronic obstructive pulmonary disease) (ICD-10 - J44.9) 10/09/2024 Lumbar radiculopathy (ICD-10 - M54.16) 10/09/2024 Numbness in feet (ICD-10 - R20.0) 10/20/2024 Severe claudication (ICD-10 - I73.9) 12/27/2024 Hypertension (ICD-10 - I10) 03/31/2025 Peripheral neuropathy (ICD-10 - G62.9) 04/18/2025 Hypertension (ICD-10 - I10) 07/14/2025 Lumbar radiculopathy (ICD-10 - M54.16) 07/10/2025 Severe claudication (ICD-10 - I73.9) 12/24/2024 COPD (chronic obstructive pulmonary disease) (ICD-10 - J44.9) 12/24/2024 Cellulitis (ICD-10 - L03.90) 07/10/2025 Peripheral neuropathy (ICD-10 - G62.9) 07/10/2025 Hip pain (ICD-10 - M25.559) 10/07/2024 Other Recommended to rest and use a heating pad on the area. Take NSAIDs for pain as needed 03/31/2025 Other Recommended to rest and use a heating pad on the area. Take NSAIDs for pain as needed Plan Of Treatment Pending Test Test Name Order Date CMP (COMPLETE METABOLIC PANEL) 3 CMP (COMPLETE METABOLIC PANEL) 4 HEMOGLOBIN A1C (GLYCO) 07/26/2023 HEMOGLOBIN A1C (GLYCO) 09/02/2024 HEMOGLOBIN A1C (GLYCO) 07/10/2025 IRON, TOTAL 07/10/2025 LIPID PANEL (CHOL/TRIG/HDL/LDL) 07/10/20 25 LIPID PANEL (CHOL/TRIG/HDL/LDL) 07/26/20 23 LIPID PANEL (CHOL/TRIG/HDL/LDL) 09/02/20 24 CBC WITH DIFF 09/02/2024 CBC WITH DIFF 07/26/2023 VITAMIN D, 25 LEVEL (TOTAL) 07/26/2023 MAMM Mammograms CAD 07/26/2023 MRI Lumbar Spine w/o contrast 07/14/2025 FECAL OCCULT BLOOD 12/27/2024 Insulin Level 07/10/2025 EMG Nerve Conduction Study Legs (bilater al) 03/31/2025 CMP - Comprehensive Metabolic Panel 12/08 CT Chest Low Dose for Screening* 023 STOOL OCCULT BLOOD 07/10/2025 CBC AUTO DIFF 12/27/2024 GLYCOHEMOGLOBIN A1C 12/27/2024 LIPID PROFILE 12/27/2024 VIT B12 AND FOLATE 07/10/2025 MRI LSPINE WO CON 10/09/2024 MRI LSPINE WO CON 10/07/2024 XR HIP LT 2 3V W PELVIS 07/10/2025 XR LSPINE MIN 4 VIEWS 10/07/2024 THYROID PANEL (T4/TSH/FREE T3) 4 THYROID PANEL (T4/TSH/FREE T3) 3 THYROID PANEL (T4/TSH/FREE T3) 5 THYROID PANEL (T4/TSH/FREE T3) 5 XR HIP RT 2 3V W PELVIS 07/10/2025 MM screening mammo BI 09/02/2024 YESSY Segmental Pressure Study of Lower Ex tremity 10/07/2024 CMP (COMP MET AGUIRRE) w/eGFR CKD-EPI 2024 CBC WITH DIFF 07/10/2025 Insurance Providers Payer Name Payer Address Payer Phone Subscriber Number Group Number Insured Name Patient Relationship to Insured Coverage Start Date Coverage End Date [place] [address] [place] [address] [id number] Bhavya Ruby Self - patient is the insured Medications Administered Medication Instructions Date of Administration Dosage Notes Ketorolac Tromethamine 10/07/2024 60 mg Ketorolac Tromethamine 11/22/2024 60 mg Triamcinolone 40 mg/ml 10/07/2024 120 mg Medical (General) History Medical History History ICD Code Anxiety F41.9 Essential hypertension I10 GERD (gastroesophageal reflux disease) K 21.9 Basal Cell Carcinoma- hx Low back pain M54.5 Restless leg syndrome G25.81 Esophageal Reflux- hx Surgical History Surgery Date(Month/Year) Lump removed- left breast Left ovary removed CHOLECYSTECTOMY PAD Surgery 12/2024 Hospitalization History Reason Date(Month/Year) PAD 12/2024
--- OUTSIDE RECORDS SUMMARY | 2025-07-23 13:35 | XMS_ITS | CCD ---
Author Organization [facility] Care Team Providers Care Regional Economist Name Role Phone PHYSICIAN, DEFAULT Unavailable Unavailable PHYSICIAN, DEFAULT Unavailable Unavailable Evonne Seo Unavailable TED CASTREJON Admitting Unavailable TED CASTREJON Attending Unavailable MARTI, DR CHEUNG Primary Care Unavailable TED CASTREJON Consulting Unavailable MARTI, DR CHEUNG Admitting Unavailable MARTI, DR CHEUNG Attending Unavailable MARTI, DR CHEUNG Primary Care Unavailable MARTI, DR CHEUNG Consulting Unavailable Skye Bowman MD Primary Care Provider [phone] Henrique AMAYA, Garrison Davis Attending Unavailable Henrique AMAYA, Garrison Davis Attending Unavailable Henrique AMAYA, Garrison Davis Attending Unavailable Skye Bowman MD Primary Care Provider [phone] WARD AHNAMAD Attending Unavailable ALGHOTHANI, MOHAMAD Referring Unavailable HOY, [...] Unavailable Skye Bowman MD Primary Care Provider [phone] JIM, MOHAMED F Attending Unavailable HOY, SKYE [...] Unavailable Skye Bowman MD Primary Care Provider [phone] John Izquierdo DO Attending Provider Allergies Allergy Classification Reported Allergen(s) Allergy Type Date of Onset Reaction(s) Facility (6 sources) nickel; Translations: [NICKEL] Drug Allergy 12-12-2024 [facility] (6 sources) Contact Metal Agent; Translations: [CONTACT METAL AGENT] Propensity to adverse reactions to drug 12-06-2024 [facility] Medications Current Medications Medication Drug Class(es) Dates Sig (Normalized) Sig (Original) acetaminophen 500 mg oral tablet (1 source) Start: 12-17-2024 End: 12-20-2024 take 1000 mg by mouth four times daily 1,000 mg, oral, 4 times daily, First dose on Mon12/17/24 at 1900, For 72 hours atorvastatin 40 mg oral tablet (7 sources) HMG-CoA Reductase Inhibitor Start: 12-18-2024 take 40 mg by mouth once daily 40 mg, oral, Daily, First dose on Mon12/18/24 at 0900, Look-alike/soun d-alike medication - verify indication for use. baclofen 10 mg oral tablet (7 sources) gamma-Aminobutyric Acid-ergic Agonist Start: 10-30-2024 take 1 tablet by mouth three times daily baclofen (LIORESAL) 10 mg tablet Take 1 tablet (10 mg total) by mouth 3 (three) times a day. 10/30/2024 Active Calcium Gluconate (1 source) Start: 12-17-2024 calcium gluconate IVPB 1000 mg/50 mL (20 mg/mL premix) cefdinir 300 mg oral capsule (2 sources) Cephalosporin Antibacterial Start: 12-24-2024 take 2 capsules by mouth in the morning, then take 2 capsules by mouth at bedtime cefDINIR (OMNICEF) 300 mg capsule Take 2 capsules (600 mg total) by mouth in the morning and 2 capsules (600 mg total) before bedtime. 12/24/2024 Active cilostazol 100 mg oral tablet (11 sources) Phosphodiesterase 3 Inhibitor Start: 07-08-2024 take 1 tablet by mouth once Start: 04-25-2023 End: 11-04-2023 take 1 tablet by mouth twice daily cilostazoL (PLETAL) 100 mg tablet Indications: PVD (peripheral vascular disease) , Claudication , Bilateral carotid bruits take 1 tablet by mouth twice a day 180 tablet 1 11/04/2023 Active cloNIDine hydrochloride 0.1 mg oral tablet (9 sources) Central alpha-2 Adrenergic Agonist Start: 07-08-2024 take 1 tablet by mouth once daily doxycycline monohydrate 100 mg oral capsule (2 sources) Tetracycline-class Drug Start: 12-24-2024 take 1 capsule by mouth in the morning, then take 1 capsule by mouth at bedtime doxycycline (MONODOX) 100 mg capsule Take 1 capsule (100 mg total) by mouth in the morning and 1 capsule (100 mg total) before bedtime. 12/24/2024 Active gabapentin 300 mg oral capsule (7 sources) Anti-epileptic Agent Start: 11-18-2024 gabapentin (NEURONTIN) 300 mg capsule Take 1 capsule (300 mg total) by mouth in the morning and 1 capsule (300 mg total) at noon and 1 capsule (300 mg total) before bedtime. 11/18/2024 Active glucagon (rdna) 1 mg injection [...] for bleeding. lisinopril 10 mg oral tablet (9 sources) Angiotensin Converting Enzyme Inhibitor Start: 07-08-2024 take 1 tablet by mouth in the morning lisinopriL (PRINIVIL,ZESTRIL) 10 mg tablet Take 1 tablet (10 mg total) by mouth in the morning. 11/24/2024 Active magnesium sulfate IVPB 2000 mg/50 mL in [...] mEq/mL premix) predniSONE 50 mg oral tablet (2 sources) Start: 07-08-2024 take 1 tablet by mouth once daily sodium phosphate 20 mmol in sodium chloride 0.9 % 250 mL IVPB (1 source) Start: 12-17-2024 sodium phosphate 20 mmol in sodium chloride 0.9 % 250 mL IVPB zonisamide 100 mg oral capsule (7 sources) Anti-epileptic Agent Start: 12-17-2024 take 100 [...] aspirin 81 mg delayed release oral tablet (8 sources) Platelet Aggregation Inhibitor, Nonsteroidal Anti-inflammatory Drug [...] 1 dose clopidogrel 75 mg oral tablet (8 sources) P2Y12 Platelet Inhibitor Start: 12-17-2024 End: [...] Problem Date Documented Date Episodic/Chronic Allergic reactions (2 sources) Unspecified contact dermatitis, unspecified cause; Translations: [Contact dermatitis and other eczema, unspecified cause] 07-08-2024 Episodic Aortic and peripheral arterial embolism or thrombosis (1 source) Embolism and thrombosis of unspecified artery; Translations: [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 Deficiency and other anemia (2 sources) Heterozygous thalassemia; 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-08-2024 Chronic Essential hypertension (2 sources) Hypertensive disorder; Translations: [Essential (primary) hypertension] 07-08-2024 Chronic Gangrene (10 sources) Critical lower limb ischemia ; Translations: [Atherosclerosis of [place] arteries of extremities with gangrene, right leg] Onset: 5 11-28-2024 Chronic Other circulatory disease (3 sources) Critical lower limb ischemia 01-02-2025 Episodic Other connective tissue disease (4 sources) Pain in right lower leg; Translations: [PAIN IN RIGHT LOWER LEG] Onset: 2 Episodic Other connective tissue disease (1 source) Pain in left lower leg; Translations: [PAIN IN LEFT LOWER LEG] Onset: 2 Episodic Other nervous system disorders (2 sources) Polyneuropathy; Translations: [Polyneuropathy, unspecified] 06-25-2025 Chronic Other screening for suspected conditions (not mental disorders or infectious disease) (1 source) Abnormal electrocardiogram [ECG] [EKG]; Translations: [Abnormal electrocardiogram (ECG) (EKG)] Onset: 5 Episodic Peripheral and visceral atherosclerosis (17 sources) Peripheral vascular disease; Translations: [Peripheral vascular disease, unspecified] Onset: 5 11-04-2023 Chronic Unclassified (1 source) Patient encounter status 12-12-2024 Unclassified (1 source) 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 ([facility]) [I70.261] Onset: 5 Unclassified (1 source) bilat iliac stents & fem-fem bypass 12-17-24 Onset: 5 Past or Other Problems Problem Classification Problem Date Documented Da te Episodic/Chronic Immunizations and screening for infectious disease (1 source) Contact with and (suspected) exposure to other viral communicable diseases Onset: 09-07-2021 Resolved: 09-07-2021 Episodic Mood disorders (3 sources) Mood disorders Onset: 12-17-2024 12-17-2024 Other circulatory disease (1 source) Carotid bruit; Translations: [Other specified symptoms and signs involving the circulatory and respiratory systems] 11-04-2023 Episodic Other nervous system disorders (1 source) Claudication Onset: 11-28-2024 Episodic Viral infection (1 source) COVID-19 Onset: 09-07-2021 Resolved: 09-07-2021 Results Test Name Value Interpretation Reference Range Facility CBC without diffon 5 Erythrocyte distribution width (RBC) [Ratio] 17.8 % High 11.5 - 15.0 % [facility] Hematocrit (Bld) [Volume fraction] 25.3 % Low 35 - 47 % [facility] Hemoglobin (Bld) [Mass/Vol] 8 g/dL Low 11.7 - 15.5 g/dL [facility] Interpretation and review of laboratory results Abnormal [facility] MCH (RBC) [Entitic mass] 20 pg Low 27 - 34 pg [facility] MCHC (RBC) [Mass/Vol] 31.7 g/dL Low 32 - 36 g/dL [facility] MCV (RBC) [Entitic vol] 63 fL Low 80 - [address] [facility] Platelet mean volume (Bld) [Entitic vol] 9 fL 7 - 12 fL [facility] Platelets (Bld) [#/Vol] 260 10*3/uL [facility] RBC (Bld) [#/Vol] 4.01 10*6/uL [facility] WBC corrected for nucl RBC Auto (Bld) [#/Vol] 11.4 High [facility] COMPLETE BLOOD COUNTon 12-19 Erythrocyte distribution width (RBC) [Ratio] 17.8 % High 11.5-15.0 [facility] Comment on above: Performed By: #### PARK Ross BCA, 12959-3, BMP #### [facility] ([id number]) [address], [address] [place] [address] Hematocrit (Bld) [Volume fraction] 25.3 % Low 35-47 [facility] Comment on above: Performed By: #### Cody MAGAÑA PINR, 09256-4, BMP #### [facility] ([id number]) [address], [address] [place] [address] Hemoglobin (Bld) [Mass/Vol] 8.0 g/dL Low 11.7-15.5 [facility] Comment on above: Performed By: #### Cody MAGAÑA PINR, 13965-5, BMP #### [facility] ([id number]) [address], [address] [place] [address] MCH (RBC) [Entitic mass] 20.0 pg Low 27-34 [facility] Comment on above: Performed By: #### Cody MAGAÑA PINR, 40496-2, BMP #### [facility] ([id number]) [address], [address] [place] [address] MCHC (RBC) [Mass/Vol] 31.7 g/dL Low 32-36 [facility] Comment on above: Performed By: #### C GÓMEZ PINR, 10217-3, BMP #### [facility] ([id number]) [address], [address] [place] [address] MCV (RBC) [Entitic vol] 63 fL Low 80-100 [facility] Comment on above: Performed By: #### Cody MAGAÑA PINR, 53832-8, BMP #### [facility] ([id number]) [address], [address] [place] [address] Platelet mean volume (Bld) [Entitic vol] 9.0 fL Normal 7-12 [facility] Comment on above: Performed By: #### Cody MAGAÑA, PINR, 15735-7, BMP #### [facility] ([id number]) [address], [address] [place] [address] Platelets (Bld) [#/Vol] 260 10*3/uL Normal 150-450 [facility] Comment on above: Performed By: #### Cody MAGAÑA, PINR, 86988-8, BMP #### [facility] ([id number]) [address], [address] [place] [address] RBC COUNT 4.01 X10E12/L Normal 3.80-5.20 [facility] Comment on above: Performed By: #### Cody MAGAÑA, PINR, 95212-0, BMP #### [facility] ([id number]) [address], [address] [place] [address] WBC (Bld) [#/Vol] 11.4 10*3/uL High 4.0-11.0 [facility] Comment on above: Performed By: #### Cody MAGAÑA, PINR, 45862-9, BMP #### [facility] ([id number]) [address], [address] [place] [address] COMPREHENSIVE METABOLIC PANE Heron 12-19-2024 Albumin [Mass/Vol] 3.0 g/dL Low 3.2-5.3 [facility] Comment on above: Performed By: #### C BCA, PINR, 90656-8, BMP #### [facility] ([id number]) [address], [address] [place] [address] ALP [Catalytic activity/Vol] 81 U/L Normal 39-130 [facility] Comment on above: Performed By: #### C BCA, PINR, 18685-2, BMP #### [facility] ([id number]) [address], [address] [place] [address] ALT [Catalytic activity/Vol] 26 U/L Normal 0-31 [facility] Comment on above: Performed By: #### C BCA, PINR, 28143-5, BMP #### [facility] ([id number]) [address], [address] [place] [address] Anion gap [Moles/Vol] 8 mmol/L Normal 5-15 [facility] Comment on above: Performed By: #### C BCA, PINR, 89974-1, BMP #### [facility] ([id number]) [address], [address] [place] [address] AST [Catalytic activity/Vol] 25 U/L Normal 0-41 [facility] Comment on above: Performed By: #### C BCA, PINR, 40974-8, BMP #### [facility] ([id number]) [address], [address] [place] [address] Bilirubin [Mass/Vol] 1.7 mg/dL High 0.3-1.2 [facility] Comment on above: Performed By: #### C BCA, PINR, 65392-9, BMP #### [facility] ([id number]) [address] [place] [address] Calcium [Mass/Vol] 8.2 mg/dL Low 8.5-10.5 [facility] Comment on above: Performed By: #### C GÓMEZ PINR, 91348-1, BMP #### [facility] ([id number]) [address], [address] [place] [address] Chloride [Moles/Vol] 109 mmol/L Normal 98-109 [facility] Comment on above: Performed By: #### C GÓMEZ PINR, 85831-3, BMP #### [facility] ([id number]) [address], [address] [place] [address] CO2 [Moles/Vol] 21 mmol/L Low 22-32 [facility] Comment on above: Performed By: #### C GÓMEZ PINR, 25725-8, BMP #### [facility] ([id number]) [address], [address] [place] [address] Creatinine [Mass/Vol] 1.06 mg/dL High 0.40-1.00 [facility] Comment on above: Result Comment: METH OD TRACEABLE TO IDMS STANDARD Performed By: #### C PARK MAGAÑA, 16612-6, BMP #### [facility] ([id number]) [address], [address] [place] [address] GFR/1.73 sq M.predicted among non-blacks MDRD (S/P/Bld) [Vol rate/Area] 58 mL/min/{1.73_m2} Low >59 [facility] Comment on above: Result Comment: Reported eGFR is based on the CKD-EPI 2020 equation that does not use a race coefficient. Performed By: #### C GÓMEZ PINR, 11026-6, BMP #### [facility] ([id number]) [address] [place] [address] Glucose [Mass/Vol] 121 mg/dL High 65-99 [facility] Comment on above: Performed By: #### C GÓMEZ PINR, 41257-4, BMP #### [facility] ([id number]) [address], [address] [place] [address] Potassium [Moles/Vol] 3.8 mmol/L Normal 3.5-5.0 [facility] Comment on above: Performed By: #### C BCA, PINR, 58685-1, BMP #### [facility] ([id number]) [address] [place] [address] Protein [Mass/Vol] 5.8 g/dL Low 6.0-8.0 [facility] Comment on above: Performed By: #### C BCA, PINR, 27712-0, BMP #### [facility] ([id number]) [address] [place] [address] Sodium [Moles/Vol] 138 mmol/L Normal 134-146 [facility] Comment on above: Performed By: #### C BCA, PINR, 70459-2, BMP #### [facility] ([id number]) [address], [address] [place] [address] Urea nitrogen [Mass/Vol] 20 mg/dL Normal 5-27 [facility] Comment on above: Performed By: #### Cody BCA, PINR, 44368-6, BMP #### [facility] ([id number]) [address], [address] [place] [address] Comprehensive metabolic pane heron 12-19-2024 Albumin [Mass/Vol] 3 g/dL Low 3.2 - 5.3 g/dL [facility] ALP [Catalytic activity/Vol] 81 U/L 39 - 130 U/L [facility] ALT No additional P-5'-P [Catalytic activity/Vol] 26 U/L 0 - 31 U/L [facility] Anion gap [Moles/Vol] 8 mmol/L 5 - 15 mmol/L [facility] AST [Catalytic activity/Vol] 25 U/L 0 - 41 U/L [facility] Bilirubin [Mass/Vol] 1.7 mg/dL High 0.3 - 1 .2 mg/dL [facility] Calcium [Mass/Vol] 8.2 mg/dL Low 8.5 - 10. 5 mg/dL [facility] Chloride [Moles/Vol] 109 mmol/L 98 - 10 9 mmol/L [facility] CO2 [Moles/Vol] 21 mmol/L Low 22 - 32 mmol/L [facility] Creatinine [Mass/Vol] 1.06 mg/dL High 0.40 - 1.00 mg/dL [facility] Comment on above: METHOD TRACEABLE TO [facility] STANDARD eGFR (CKD-EPI)non-race dependent 58 Low - PINF [facility] Comment on above: Reported eGFR is based on the CKD-EPI 2020 equation that does not use a race coefficient. Glucose [Mass/Vol] 121 mg/dL High 65 - 99 mg/dL [facility] Interpretation and review of laboratory results Abnormal [facility] Potassium [Moles/Vol] 3.8 mmol/L 3.5 - 5.0 mmol/L [facility] Protein [Mass/Vol] 5.8 g/dL Low 6.0 - 8.0 g/dL [facility] Sodium [Moles/Vol] 138 mmol/L 134 - 146 mmol/L [facility] Urea nitrogen [Mass/Vol] 20 mg/dL 5 - 27 mg/dL [facility] Crossmatch RBC:Number of Uni ts: 1on 12-19-2024 BB Type Barcode 9500 [facility] Blood component type [id number] [facility] Crossmatch Compatible [facility] Expiration Date [id number] [facility] Status of unit TRANSFUSED [facility] Unit ABO O [facility] Unit number [id number] [facility] Unit RH Negative [facility] Hemoglobin and hematocrit, b loodon 12-19-2024 Hematocrit (Bld) [Volume fraction] 25.2 % Low 35 - 47 % [facility] Hemoglobin (Bld) [Mass/Vol] 8.1 g/dL Low 11.7 - 15.5 g/dL [facility] Interpretation and review of laboratory results Abnormal [facility] MAGNESIUMon 12-19-2024 Magnesium [Mass/Vol] 1.8 mg/dL Normal 1.8-2.6 [facility] Comment on above: Performed By: #### C PARK MAGAÑA, 69514-3, BMP #### [facility] ([id number]) [address], [address] [place] [address] Magnesiumon 12-19-2024 Magnesium [Mass/Vol] 1.8 mg/dL 1.8 - 2 .6 mg/dL [facility] No Panel Informationon 12-19 [facility] PHOSPHORUSon 12-19-2024 Phosphate [Mass/Vol] 3.1 mg/dL Normal 2.4-4.9 [facility] Comment on above: Performed By: #### C GÓMEZ, PINR, 22743-8, BMP #### [facility] ([id number]) [address] [place] [address] Phosphoruson 12-19-2024 Phosphate [Mass/Vol] 3.1 mg/dL 2.4 - 4 .9 mg/dL [facility] ABO Rh Repeaton 12-18-2024 ABO O [facility] Rh Nom (Bld) Positive [facility] CBC without diffon Erythrocyte distribution width (RBC) [Ratio] 15.8 % High 11.5 - 15.0 % [facility] Hematocrit (Bld) [Volume fraction] 22.8 % Low 35 - 47 % [facility] Hemoglobin (Bld) [Mass/Vol] 7.3 g/dL Low 11.7 - 15.5 g/dL [facility] Interpretation and review of laboratory results Abnormal [facility] MCH (RBC) [Entitic mass] 19.4 pg Low 27 - 34 pg [facility] MCHC (RBC) [Mass/Vol] 31.9 g/dL Low 32 - 36 g/dL [facility] MCV (RBC) [Entitic vol] 61 fL Low 80 - 100 fL [facility] Platelet mean volume (Bld) [Entitic vol] 8.9 fL 7 - 12 fL [facility] Platelets (Bld) [#/Vol] 291 10*3/uL [facility] RBC (Bld) [#/Vol] 3.75 10*6/uL [facility] WBC corrected for nucl RBC Auto (Bld) [#/Vol] 12.[address] [facility] COMPLETE BLOOD COUNTon 12-18 Erythrocyte distribution width (RBC) [Ratio] 15.8 % High 11.5-15.0 [facility] Comment on above: Performed By: #### C GÓMEZ PINR, 78552-9, BMP #### [facility] ([id number]) [address], [address] [place] [address] Hematocrit (Bld) [Volume fraction] 22.8 % Low 35-47 [facility] Comment on above: Performed By: #### Cody MAGAÑA PINR, 37963-8, BMP #### [facility] ([id number]) [address] [place] [address] Hemoglobin (Bld) [Mass/Vol] 7.3 g/dL Low 11.7-15.5 [facility] Comment on above: Performed By: #### Cody MAGAÑA PINR, 91993-0, BMP #### [facility] ([id number]) [address] [place] [address] MCH (RBC) [Entitic mass] 19.4 pg Low 27-34 [facility] Comment on above: Performed By: #### Cody MAGAÑA PINR, 50720-4, BMP #### [facility] ([id number]) [address] [place] [address] MCHC (RBC) [Mass/Vol] 31.9 g/dL Low 32-36 [facility] Comment on above: Performed By: #### Cody MAGAÑA PINR, 71541-8, BMP #### [facility] ([id number]) [address] [place] [address] MCV (RBC) [Entitic vol] 61 fL Low 80-100 [facility] Comment on above: Performed By: #### C GÓMEZ, PINR, 52896-4, BMP #### [facility] ([id number]) [address] [place] [address] Platelet mean volume (Bld) [Entitic vol] 8.9 fL Normal 7-12 [facility] Comment on above: Performed By: #### C GÓMEZ PINR, 54721-6, BMP #### [facility] ([id number]) [address] [place] [address] Platelets (Bld) [#/Vol] 291 10*3/uL Normal 150-450 [facility] Comment on above: Performed By: #### C GÓMEZ, PINR, 26190-4, BMP #### [facility] ([id number]) [address] [place] [address] RBC COUNT 3.75 X10E12/L Low 3.80-5.20 [facility] Comment on above: Performed By: #### C GÓMEZ, PINR, 79984-4, BMP #### [facility] ([id number]) [address] [place] [address] WBC (Bld) [#/Vol] 12.8 10*3/uL High 4.0-11.0 [facility] Comment on above: Performed By: #### C GÓMEZ, PINR, 24005-1, BMP #### [facility] ([id number]) [address] [place] [address] COMPREHENSIVE METABOLIC PANE Heron 12-18-2024 Albumin [Mass/Vol] 3.1 g/dL Low 3.2-5.3 [facility] Comment on above: Performed By: #### C ASHWIN, , 2776-10, CBC #### [facility] ([id number]) [address] [place] [address] ALP [Catalytic activity/Vol] 84 U/L Normal 39-130 [facility] Comment on above: Performed By: #### C ASHWIN, , 2776-10, CBC #### [facility] ([id number]) [address] [place] [address] ALT [Catalytic activity/Vol] 35 U/L High 0-31 [facility] Comment on above: Performed By: #### C ASHWIN, , 2776-10, CBC #### [facility] ([id number]) [address] [place] [address] Anion gap [Moles/Vol] 8 mmol/L Normal 5-15 [facility] Comment on above: Performed By: #### C ASHWIN, , 2776-10, CBC #### [facility] ([id number]) [address] [place] [address] AST [Catalytic activity/Vol] 27 U/L Normal 0-41 [facility] Comment on above: Performed By: #### C ASHWIN, , 2776-10, CBC #### [facility] ([id number]) [address] [place] [address] Bilirubin [Mass/Vol] 0.5 mg/dL Normal 0.3-1.2 [facility] Comment on above: Performed By: #### C ASHWIN, , 2776-10, CBC #### [facility] ([id number]) [address] [place] [address] Calcium [Mass/Vol] 8.4 mg/dL Low 8.5-10.5 [facility] Comment on above: Performed By: #### C ASHWIN, , 2776-10, CBC #### [facility] ([id number]) [address] [place] [address] Chloride [Moles/Vol] 107 mmol/L Normal 98-109 [facility] Comment on above: Performed By: #### C ASHWIN, , 2776-10, CBC #### [facility] ([id number]) [address] [place] [address] CO2 [Moles/Vol] 23 mmol/L Normal 22-32 [facility] Comment on above: Performed By: #### C SAHWIN, , 2776-10, CBC #### [facility] ([id number]) [address] [place] [address] Creatinine [Mass/Vol] 1.03 mg/dL High 0.40-1.00 [facility] Comment on above: Result Comment: METH OD TRACEABLE TO IDMS STANDARD Performed By: #### C ASHWIN, , 2776-10, CBC #### [facility] ([id number]) [address] [place] [address] GFR/1.73 sq M.predicted among non-blacks MDRD (S/P/Bld) [Vol rate/Area] 60 mL/min/{1.73_m2} Normal >59 [facility] [facility] Comment on above: Result Comment: Reported eGFR is based on the CKD-EPI 2020 equation that does not use a race coefficient. Performed By: #### C ASHWIN, , 2776-10, CBC #### [facility] ([id number]) [address], [address] [place] [address] Glucose [Mass/Vol] 156 mg/dL High 65-99 [facility] Comment on above: Performed By: #### C ASHWIN, , 2776-10, CBC #### [facility] ([id number]) [address], [address] [place] [address] Potassium [Moles/Vol] 3.9 mmol/L Normal 3.5-5.0 [facility] Comment on above: Performed By: #### C ASHWIN, 26141-6, 2777-1, CBC #### [facility] ([id number]) [address], [address] [place] [address] Protein [Mass/Vol] 5.9 g/dL Low 6.0-8.0 [facility] Comment on above: Performed By: #### C ASHWIN, 87635-9, 2777-1, CBC #### [facility] ([id number]) [address], [address] [place] [address] Sodium [Moles/Vol] 138 mmol/L Normal 134-146 [facility] Comment on above: Performed By: #### C ASHWIN, 67296-3, 277-, CBC #### [facility] ([id number]) [address], [address] [place] [address] Urea nitrogen [Mass/Vol] 21 mg/dL Normal 5-27 [facility] Comment on above: Performed By: #### C ASHWIN, 18701-1, 2777-1, CBC #### [facility] ([id number]) [address], [address] [place] [address] Comprehensive metabolic pane heron 12-18-2024 Albumin [Mass/Vol] 3.1 g/dL Low 3.2 - 5.3 g/dL [facility] ALP [Catalytic activity/Vol] 84 U/L 39 - 130 U/L [facility] ALT No additional P-5'-P [Catalytic activity/Vol] 35 U/L High 0 - 31 U/L [facility] Anion gap [Moles/Vol] 8 mmol/L 5 - 15 mmol/L [facility] AST [Catalytic activity/Vol] 27 U/L 0 - 41 U/L [facility] Bilirubin [Mass/Vol] 0.5 mg/dL 0.3 - 1 .2 mg/dL [facility] Calcium [Mass/Vol] 8.4 mg/dL Low 8.5 - 10. 5 mg/dL [facility] Chloride [Moles/Vol] 107 mmol/L 98 - 10 9 mmol/L [facility] CO2 [Moles/Vol] 23 mmol/L 22 - 32 mmol/L [facility] Creatinine [Mass/Vol] 1.03 mg/dL High 0.40 - 1.00 mg/dL [facility] Comment on above: METHOD TRACEABLE TO [facility] STANDARD eGFR (CKD-EPI)non-race dependent 60 - PINF [facility] Comment on above: Reported eGFR is based on the CKD-EPI 2020 equation that does not use a race coefficient. Glucose [Mass/Vol] 156 mg/dL High 65 - 99 mg/dL [facility] Interpretation and review of laboratory results Abnormal [facility] Potassium [Moles/Vol] 3.9 mmol/L 3.5 - 5.0 mmol/L [facility] Protein [Mass/Vol] 5.9 g/dL Low 6.0 - 8.0 g/dL [facility] Sodium [Moles/Vol] 138 mmol/L 134 - 146 mmol/L [facility] Urea nitrogen [Mass/Vol] 21 mg/dL 5 - 27 mg/dL [facility] HGBon 12-18-2024 Hematocrit (Bld) [Volume fraction] 25.2 % Low 35-47 [facility] Comment on above: Performed By: #### C PARK MAGAÑA, 33885-2, BMP #### [facility] ([id number]) [address], [address] [place] [address] Hemoglobin (Bld) [Mass/Vol] 8.1 g/dL Low 11.7-15.5 [facility] Comment on above: Performed By: #### C PARK MAGAÑA, 96600-6, BMP #### [facility] ([id number]) [address] [place] [address] MAGNESIUMon 12-18-2024 Magnesium [Mass/Vol] 2.0 mg/dL Normal 1.8-2.6 [facility] Comment on above: Performed By: #### C PARK MAAGÑA, 10439-1, BMP #### [facility] ([id number]) [address] [place] [address] Magnesiumon 12-18-2024 Magnesium [Mass/Vol] 2 mg/dL 1.8 - 2 .6 mg/dL [facility] No Panel Informationon 12-18 [facility] PHOSPHORUSon 12-18-2024 Phosphate [Mass/Vol] 3.2 mg/dL Normal 2.4-4.9 [facility] Comment on above: Performed By: #### C PARK MAGAÑA, 89882-4, BMP #### [facility] ([id number]) [address], [address] [place] [address] Phosphoruson 12-18-2024 Phosphate [Mass/Vol] 3.2 mg/dL 2.4 - 4 .9 mg/dL [facility] BASIC METABOLIC PANLon 12-17 Anion gap [Moles/Vol] 8 mmol/L Normal 5-15 [facility] Comment on above: Performed By: #### Cody MAGAÑA, BMP #### [facility] ([id number]) [address] [place] [address] Calcium [Mass/Vol] 8.4 mg/dL Low 8.5-10.5 [facility] Comment on above: Performed By: #### Cody MAGAÑA, BMP #### [facility] ([id number]) [address], [address] [place] [address] Chloride [Moles/Vol] 109 mmol/L Normal 98-109 [facility] Comment on above: Performed By: #### Cody MAGAÑA, BMP #### [facility] ([id number]) [address], [address] [place] [address] CO2 [Moles/Vol] 21 mmol/L Low 22-32 [facility] Comment on above: Performed By: #### C BCA, BMP #### [facility] ([id number]) [address] [address] [place] [address] Creatinine [Mass/Vol] 0.91 mg/dL Normal 0.40-1.00 [facility] Comment on above: Result Comment: METH OD TRACEABLE TO IDMS STANDARD Performed By: #### C BCA, BMP #### [facility] ([id number]) [address], [address] [place] [address] GFR/1.73 sq M.predicted among non-blacks MDRD (S/P/Bld) [Vol rate/Area] 69 mL/min/{1.73_m2} Normal >59 [facility] Comment on above: Result Comment: Reported eGFR is based on the CKD-EPI 2020 equation that does not use a race coefficient. Performed By: #### C BCA, BMP #### [facility] ([id number]) [address], [address] [place] [address] Glucose [Mass/Vol] 154 mg/dL High 65-99 [facility] Comment on above: Performed By: #### C BCA, BMP #### [facility] ([id number]) [address], [address] [place] [address] Potassium [Moles/Vol] 4.1 mmol/L Normal 3.5-5.0 [facility] Comment on above: Performed By: #### C BCA, BMP #### [facility] ([id number]) [address], [address] [place] [address] Sodium [Moles/Vol] 138 mmol/L Normal 134-146 [facility] Comment on above: Performed By: #### C BCA, BMP #### [facility] ([id number]) [address], [address] [place] [address] Urea nitrogen [Mass/Vol] 14 mg/dL Normal 5-27 [facility] Comment on above: Performed By: #### C BCA, BMP #### [facility] ([id number]) [address] [place] [address] Basic Metabolic Panelon 12-07 Anion gap [Moles/Vol] 8 mmol/L 5 - 15 mmol/L [facility] Calcium [Mass/Vol] 8.4 mg/dL Low 8.5 - 10. 5 mg/dL [facility] Chloride [Moles/Vol] 109 mmol/L 98 - 10 9 mmol/L [facility] CO2 [Moles/Vol] 21 mmol/L Low 22 - 32 mmol/L [facility] Creatinine [Mass/Vol] 0.91 mg/dL 0.40 - 1.00 mg/dL [facility] Comment on above: METHOD TRACEABLE TO [facility]GA STANDARD eGFR (CKD-EPI)non-race dependent 69 - PINF [facility] Comment on above: Reported eGFR is based on the CKD-EPI 2020 equation that does not use a race coefficient. Glucose [Mass/Vol] 154 mg/dL High 65 - 99 mg/dL [facility] Interpretation and review of laboratory results Abnormal [facility] Potassium [Moles/Vol] 4.1 mmol/L 3.5 - 5.0 mmol/L [facility] Sodium [Moles/Vol] 138 mmol/L 134 - 146 mmol/L [facility] Urea nitrogen [Mass/Vol] 14 mg/dL 5 - 27 mg/dL [facility] CBC AND AUTO DIFFon 12-18-19 25 ABSOLUTE BASOPHIL 0.0 X10E9/L Normal 0.0-0.2 [facility] Comment on above: Performed By: #### C BCA, BMP #### [facility] ([id number]) [address] [place] [address] ABSOLUTE NEUTROPHIL 9.5 X10E9/L High 1.5-6.6 [facility] Comment on above: Performed By: #### C BCA, BMP #### [facility] ([id number]) [address] [place] [address] Basophils/100 WBC (Bld) 0.4 % Normal [facility] Comment on above: Performed By: #### C GÓMEZ, BMP #### [facility] ([id number]) [address] [place] [address] Eosinophils (Bld) [#/Vol] 0.0 10*3/uL Normal 0.0-0.4 [facility] Comment on above: Performed By: #### C GÓMEZ, BMP #### [facility] ([id number]) [address] [place] [address] Eosinophils/100 WBC (Bld) 0.3 % Normal [facility] Comment on above: Performed By: #### C GÓMEZ, BMP #### [facility] ([id number]) [address], [address] [place] [address] Erythrocyte distribution width (RBC) [Ratio] 16.1 % High 11.5-15.0 [facility] Comment on above: Performed By: #### C GÓMEZ, BMP #### [facility] ([id number]) [address] [place] [address] Hematocrit (Bld) [Volume fraction] 24.0 % Low 35-47 [facility] Comment on above: Performed By: #### C GÓMEZ, BMP #### [facility] ([id number]) [address] [place] [address] Hemoglobin (Bld) [Mass/Vol] 7.6 g/dL Low 11.7-15.5 [facility] Comment on above: Performed By: #### C GÓMEZ, BMP #### [facility] ([id number]) [address] [place] [address] Lymphocytes (Bld) [#/Vol] 1.0 10*3/uL Normal 1.0-3.5 [facility] Comment on above: Performed By: #### C BCA, BMP #### [facility] ([id number]) [address] [place] [address] Lymphocytes/100 WBC (Bld) 9.1 % Normal [facility] Comment on above: Performed By: #### C BCA, BMP #### [facility] ([id number]) [address] [place] [address] MCH (RBC) [Entitic mass] 19.1 pg Low 27-34 [facility] Comment on above: Performed By: #### C BCA, BMP #### [facility] ([id number]) [address], [address] [place] [address] MCHC (RBC) [Mass/Vol] 31.6 g/dL Low 32-36 [facility] Comment on above: Performed By: #### C BCA, BMP #### [facility] ([id number]) [address], [address] [place] [address] MCV (RBC) [Entitic vol] 60 fL Low 80-100 [facility] Comment on above: Performed By: #### C BCA, BMP #### [facility] ([id number]) [address], [address] [place] [address] Monocytes (Bld) [#/Vol] 0.3 10*3/uL Normal 0-0.9 [facility] Comment on above: Performed By: #### C BCA, BMP #### [facility] ([id number]) [address] [place] [address] Monocytes/100 WBC (Bld) 2.8 % Normal [facility] Comment on above: Performed By: #### C BCA, BMP #### [facility] ([id number]) [address] [place] [address] Neutrophils/100 WBC (Bld) 87.4 % Normal [facility] Comment on above: Performed By: #### C BCA, BMP #### [facility] ([id number]) [address], [address] [place] [address] OVALOCYTE 2+ Abnormal NONE [facility] Comment on above: Performed By: #### C BCA, BMP #### [facility] ([id number]) [address], [address] [place] [address] Platelet mean volume (Bld) [Entitic vol] 8.1 fL Normal 7-12 [facility] Comment on above: Performed By: #### C GÓMEZ, BMP #### [facility] ([id number]) [address], [address] [place] [address] Platelets (Bld) [#/Vol] 288 10*3/uL Normal 150-450 [facility] Comment on above: Performed By: #### C GÓMEZ, BMP #### [facility] ([id number]) [address], [address] [place] [address] POLYCHROMASIA 1+ Abnormal NONE [facility] Comment on above: Performed By: #### C GÓMEZ, BMP #### [facility] ([id number]) [address], [address] [place] [address] RBC COUNT 3.98 X10E12/L Normal 3.80-5.20 [facility] Comment on above: Performed By: #### C BCA, BMP #### [facility] ([id number]) [address], [address] [place] [address] WBC (Bld) [#/Vol] 10.9 10*3/uL Normal 4.0-11.0 [facility] Comment on above: Performed By: #### C BCA, BMP #### [facility] ([id number]) [address], [address] [place] [address] CBC auto differentialon 12-07 Basophils (Bld) [#/Vol] 0 10*3/uL [facility] Basophils/100 WBC (Bld) 0.4 % [facility] Eosinophils (Bld) [#/Vol] 0 10*3/uL [facility] Eosinophils/100 WBC (Bld) 0.3 % [facility] Erythrocyte distribution width (RBC) [Ratio] 16.1 % High 11.5 - 15.0 % [facility] Hematocrit (Bld) [Volume fraction] 24 % Low 35 - 47 % [facility] Hemoglobin (Bld) [Mass/Vol] 7.6 g/dL Low 11.7 - 15.5 g/dL [facility] Interpretation and review of laboratory results Abnormal [facility] Lymphocytes (Bld) [#/Vol] 1 10*3/uL [facility] Lymphocytes/100 WBC (Bld) 9.1 % [facility] MCH (RBC) [Entitic mass] 19.1 pg Low 27 - [address] [facility] MCHC (RBC) [Mass/Vol] 31.6 g/dL Low 32 - 36 g/dL [facility] MCV (RBC) [Entitic vol] 60 fL Low 80 - [address] [facility] Monocytes (Bld) [#/Vol] 0.3 10*3/uL [facility] Monocytes/100 WBC (Bld) 2.8 % [facility] Neutrophils (Bld) [#/Vol] 9.5 10*3/uL High [facility] Neutrophils/100 WBC (Bld) 87.4 % [facility] Ovalocytes LM Ql (Bld) 2+ Abnormal NONE^NONE [facility] Platelet mean volume (Bld) [Entitic vol] 8.1 fL 7 - 12 fL [facility] Platelets (Bld) [#/Vol] 288 10*3/uL [facility] Polychromasia LM Ql (Bld) 1+ Abnormal NONE^NONE [facility] RBC (Bld) [#/Vol] 3.98 10*6/uL [facility] WBC corrected for nucl RBC Auto (Bld) [#/Vol] 10.9 [facility] Ionized magnesiumon 12-18-19 25 Magnesium Ionized ISE (Bld) [Moles/Vol] 0.5 mmol/L 0.45 - 0.74 mmol/L [facility] Comment on above: NEW REFERENCE RANGE Magnesium Ionized ISE (Bld) [Moles/Vol]on 12-17-2024 [facility] Magnesium [Moles/Vol] 0.50 mmol/L Normal 0.45-0.74 [facility] Comment on above: Result Comment: NEW REFERENCE RANGE Performed By: #### 7 3572-0 #### [facility] ([id number]) [address] [place] [address] RFA Guidance for vascular ac cess of Vesselon 12-17-2024 Please refer to the vascular OP note for a dictation on this exam. [facility] Antibody IDon 12-13-[address] [facility] Complete Antibody Screenon 0 12-13-2024 [facility] Laboratory - Blood bankon Rh Nom (Bld) Positive [facility] No Panel Informationon 12-13 ABO O [facility] APTTon 12-12-2024 aPTT Coag (PPP) [Time] 29 s [facility] BASIC METABOLIC PANLon 12-12 Anion gap [Moles/Vol] 11 mmol/L Normal 5-15 [facility] Comment on above: Performed By: #### C GÓMEZ, PINR, 77309-1, BMP #### [facility] ([id number]) [address] [place] [address] Calcium [Mass/Vol] 9.5 mg/dL Normal 8.5-10.5 [facility] Comment on above: Performed By: #### C BCA, PINR, 74925-6, BMP #### [facility] ([id number]) [address] [place] [address] Chloride [Moles/Vol] 105 mmol/L Normal 98-109 [facility] Comment on above: Performed By: #### C BCA, PINR, 49027-5, BMP #### [facility] ([id number]) [address] [place] [address] CO2 [Moles/Vol] 23 mmol/L Normal 22-32 [facility] Comment on above: Performed By: #### C BCA, PINR, 26015-8, BMP #### [facility] ([id number]) [address] [place] [address] Creatinine [Mass/Vol] 1.03 mg/dL High 0.40-1.00 [facility] Comment on above: Result Comment: METH OD TRACEABLE TO IDMS STANDARD Performed By: #### C BCA, PINR, 61956-6, BMP #### [facility] ([id number]) [address] [place] [address] GFR/1.73 sq M.predicted among non-blacks MDRD (S/P/Bld) [Vol rate/Area] 60 mL/min/{1.73_m2} Normal >59 [facility] Comment on above: Result Comment: Reported eGFR is based on the CKD-EPI 2020 equation that does not use a race coefficient. Performed By: #### C BCA, PINR, 42972-2, BMP #### [facility] ([id number]) [address] [place] [address] Glucose [Mass/Vol] 107 mg/dL High 65-99 [facility] Comment on above: Performed By: #### C BCA, PINR, 90127-8, BMP #### [facility] ([id number]) [address] [place] [address] Potassium [Moles/Vol] 3.5 mmol/L Normal 3.5-5.0 [facility] Comment on above: Performed By: #### C BCA, PINR, 91655-8, BMP #### [facility] ([id number]) [address] [place] [address] Sodium [Moles/Vol] 139 mmol/L Normal 134-146 [facility] Comment on above: Performed By: #### C BCA, PINR, 52330-5, BMP #### [facility] ([id number]) [address] [place] [address] Urea nitrogen [Mass/Vol] 16 mg/dL Normal 5-27 [facility] Comment on above: Performed By: #### C BCA, PINR, 17707-3, BMP #### [facility] ([id number]) [address] [place] [address] Basic Metabolic Panelon 03- Anion gap [Moles/Vol] 11 mmol/L 5 - 15 mmol/L [facility] Calcium [Mass/Vol] 9.5 mg/dL 8.5 - 10. 5 mg/dL [facility] Chloride [Moles/Vol] 105 mmol/L 98 - 10 9 mmol/L [facility] CO2 [Moles/Vol] 23 mmol/L 22 - 32 mmol/L [facility] Creatinine [Mass/Vol] 1.03 mg/dL High 0.40 - 1.00 mg/dL [facility] Comment on above: METHOD TRACEABLE TO [facility] STANDARD eGFR (CKD-EPI)non-race dependent 60 - PINF [facility] Comment on above: Reported eGFR is based on the CKD-EPI 2020 equation that does not use a race coefficient. Glucose [Mass/Vol] 107 mg/dL High 65 - 99 mg/dL [facility] Interpretation and review of laboratory results Abnormal [facility] Potassium [Moles/Vol] 3.5 mmol/L 3.5 - 5.0 mmol/L [facility] Sodium [Moles/Vol] 139 mmol/L 134 - 146 mmol/L [facility] Urea nitrogen [Mass/Vol] 16 mg/dL 5 - 27 mg/dL [facility] CBC AND AUTO DIFFon 12-13-19 25 ABSOLUTE BASOPHIL 0.1 X10E9/L Normal 0.0-0.2 [facility] Comment on above: Performed By: #### C PARK MAGAÑA, 15181-8, BMP #### [facility] ([id number]) [address] [place] [address] ACANTHOCYTE 1+ Abnormal NONE [facility] Comment on above: Performed By: #### PARK Ross BCA, 61413-7, BMP #### [facility] ([id number]) [address], [facility] [address] [place] [address] Band form neutrophils/100 WBC (Bld) 1.0 % Normal [facility] Comment on above: Performed By: #### PARK Ross BCA, 60225-5, BMP #### [facility] ([id number]) [address] [place] [address] Basophils/100 WBC (Bld) 1.0 % Normal [facility] Comment on above: Performed By: #### PARK Ross BCA, 16498-1, BMP #### [facility] ([id number]) [address] [place] [address] Erythrocyte distribution width (RBC) [Ratio] 16.6 % High 11.5-15.0 [facility] Comment on above: Performed By: #### PARK Ross BCA, 58895-6, BMP #### [facility] ([id number]) [address] [place] [address] Hematocrit (Bld) [Volume fraction] 30.2 % Low 35-47 [facility] Comment on above: Performed By: #### YASH Ross BCAR, 45029-1, BMP #### [facility] ([id number]) [address] [place] [address] Hemoglobin (Bld) [Mass/Vol] 9.7 g/dL Low 11.7-15.5 [facility] Comment on above: Performed By: #### C GÓMEZ PINR, 29329-2, BMP #### [facility] ([id number]) [address] [place] [address] Lymphocytes (Bld) [#/Vol] 2.5 10*3/uL Normal 1.0-3.5 [facility] Comment on above: Performed By: #### C GÓMEZ PINWalker, 30648-6, BMP #### [facility] ([id number]) [address] [facility] [address] [place] [address] Lymphocytes/100 WBC (Bld) 26.7 % Normal [facility] Comment on above: Performed By: #### C GÓMEZ PINR, 56266-6, BMP #### [facility] ([id number]) [address] [place] [address] MCH (RBC) [Entitic mass] 19.7 pg Low 27-34 [facility] Comment on above: Performed By: #### C YASH MAGAÑAR, 72274-0, BMP #### [facility] ([id number]) [address] [place] [address] MCHC (RBC) [Mass/Vol] 32.2 g/dL Normal 32-36 [facility] Comment on above: Performed By: #### APRK Ross BCA, 25185-1, BMP #### [facility] ([id number]) [address] [place] [address] MCV (RBC) [Entitic vol] 61 fL Low 80-100 [facility] Comment on above: Performed By: #### Cody MAGAÑA PINR, 07530-7, BMP #### [facility] ([id number]) [address] [place] [address] Monocytes (Bld) [#/Vol] 0.6 10*3/uL Normal 0-0.9 [facility] Comment on above: Performed By: #### C GÓMEZ, PINR, 99984-7, BMP #### [facility] ([id number]) [address] [place] [address] Monocytes/100 WBC (Bld) 6.7 % Normal [facility] Comment on above: Performed By: #### C GÓMEZ, PINR, 04173-6, BMP #### [facility] ([id number]) [address] [place] [address] Neutrophils (Bld) [#/Vol] 6.2 10*3/uL Normal 1.5-6.6 [facility] Comment on above: Performed By: #### C GÓMEZ, PINR, 47984-9, BMP #### [facility] ([id number]) [address] [place] [address] OVALOCYTE 1+ Abnormal NONE [facility] Comment on above: Performed By: #### Cody MAGAÑA, PINR, 59038-0, BMP #### [facility] ([id number]) [address] [place] [address] Platelet mean volume (Bld) [Entitic vol] 9.0 fL Normal 7-12 [facility] Comment on above: Performed By: #### Cdoy MAGAÑA, PINR, 96093-2, BMP #### [facility] ([id number]) [address] [place] [address] Platelets (Bld) [#/Vol] 364 10*3/uL Normal 150-450 [facility] Comment on above: Performed By: #### Cody MAGAÑA, PINR, 50797-9, BMP #### [facility] ([id number]) [address], [address] [place] [address] POLYCHROMASIA 1+ Abnormal NONE [facility] Comment on above: Performed By: #### C GÓMEZ, PINR, 17824-9, BMP #### [facility] ([id number]) [address], [address] [place] [address] RBC COUNT 4.95 X10E12/L Normal 3.80-5.20 [facility] Comment on above: Performed By: #### Cody BCA, PINR, 77024-4, BMP #### [facility] ([id number]) [address], [address] [place] [address] SEG NEUTROPHIL 64.6 % Normal [facility] Comment on above: Performed By: #### Cody BCA, PINR, 43432-3, BMP #### [facility] ([id number]) [address], [address] [place] [address] WBC (Bld) [#/Vol] 9.4 10*3/uL Normal 4.0-11.0 [facility] Comment on above: Performed By: #### Cody BCA, PINR, 20198-4, BMP #### [facility] ([id number]) [address], [address] [place] [address] CBC auto differentialon 030 Acanthocytes LM Ql (Bld) 1+ Abnormal NONE^NONE [facility] Band form neutrophils/100 WBC (Bld) 1 % [facility] Basophils (Bld) [#/Vol] 0.1 10*3/uL [facility] Basophils/100 WBC (Bld) 1 % [facility] Erythrocyte distribution width (RBC) [Ratio] 16.6 % High 11.5 - 15.0 % [facility] Hematocrit (Bld) [Volume fraction] 30.2 % Low 35 - 47 % [facility] Hemoglobin (Bld) [Mass/Vol] 9.7 g/dL Low 11.7 - 15.5 g/dL [facility] Interpretation and review of laboratory results Abnormal [facility] Lymphocytes (Bld) [#/Vol] 2.5 10*3/uL [facility] Lymphocytes/100 WBC (Bld) 26.7 % [facility] MCH (RBC) [Entitic mass] 19.7 pg Low 27 - 34 pg [facility] MCHC (RBC) [Mass/Vol] 32.2 g/dL 32 - 36 g/dL [facility] MCV (RBC) [Entitic vol] 61 fL Low 80 - 100 fL [facility] Monocytes (Bld) [#/Vol] 0.6 10*3/uL [facility] Monocytes/100 WBC (Bld) 6.7 % [facility] Neutrophils (Bld) [#/Vol] 6.2 10*3/uL [facility] Ovalocytes LM Ql (Bld) 1+ Abnormal NONE^NONE [facility] Platelet mean volume (Bld) [Entitic vol] 9 fL 7 - 12 fL [facility] Platelets (Bld) [#/Vol] 364 10*3/uL [facility] Polychromasia LM Ql (Bld) 1+ Abnormal NONE^NONE [facility] RBC (Bld) [#/Vol] 4.95 10*6/uL [facility] Segmented neutrophils/100 WBC (Bld) 64.6 % [facility] WBC corrected for nucl RBC Auto (Bld) [#/Vol] 9.4 [facility] ECG 12 leadon 12-12-2024 TRACEMASTERVUE [facility] NUC STRESS LEXISCANon 2024 NUC STRESS LEXISCAN [...] Barkley MD on 12/12/2024 10:17 AM Normal [facility] No Panel Informationon 12-12 [facility] PROTIME AND INRon 12-12-2024 INR Coag (PPP) [Relative time] 1.0 {INR} Normal 0.9-1.2 [facility] Comment on above: Performed By: #### C PARK MAGAÑA, 81629-9, BMP #### [facility] ([id number]) [address] [place] [address] PT Coag (PPP) [Time] 11.2 s Normal 9.8-13.2 [facility] Comment on above: Performed By: #### C P[place], 50319-4, BMP #### [facility] ([id number]) [address], [address] [place] [address] Protime-INRon 12-12-2024 INR Coag (PPP) [Relative time] 1 {INR} [facility] PT Coag (PPP) [Time] 11.2 s [facility] URINALYSISon 12-12-2024 Bilirubin Ql (U) Negative Normal NEG [facility] Comment on above: Performed By: #### U A #### [facility] ([id number]) [address], [address] [place] [address] Color (U) YELLOW Normal YELLOW [facility] Comment on above: Performed By: #### U A #### [facility] ([id number]) [address], [address] [place] [address] BLOOD/HGB Negative Normal NEG [facility] Comment on above: Performed By: #### U A #### [facility] ([id number]) [address], [address] [place] [address] Glucose Ql (U) Negative Normal NEG [facility] Comment on above: Performed By: #### U A #### [facility] ([id number]) [address], [address] [place] [address] Ketones Ql (U) Negative Normal NEG [facility] Comment on above: Performed By: #### U A #### [facility] ([id number]) [address] [place] [address] Leukocyte esterase Test strip Ql (U) Small Abnormal NEG [facility] Comment on above: Performed By: #### U A #### [facility] ([id number]) [address], [address] [place] [address] MUCOUS PRESENT Abnormal NONE [facility] Comment on above: Performed By: #### U A #### [facility] ([id number]) [address], [address] [place] [address] Nitrite Ql (U) Negative Normal NEG [facility] Comment on above: Performed By: #### U A #### [facility] ([id number]) [address], [address] [place] [address] pH (U) 6.0 [pH] Normal 5.0-8.5 [facility] Comment on above: Performed By: #### U A #### [facility] ([id number]) [address] [place] [address] Protein Ql (U) Negative Normal NEG [facility] Comment on above: Performed By: #### U A #### [facility] ([id number]) [address] [place] [address] R.B.CELLS 1 /hpf Normal 0-5 [facility] Comment on above: Performed By: #### U A #### [facility] ([id number]) [address], [address] [place] [address] Specific gravity (U) [Rel density] 1.008 Normal 1.003-1.035 [facility] Comment on above: Performed By: #### U A #### [facility] ([id number]) [address] [place] [address] SQUAMOUS EPITHELIUM 5 /hpf Normal 0-5 [facility] Comment on above: Performed By: #### U A #### [facility] ([id number]) [address] [facility] [place] [address] TURBIDITY CLEAR Normal CLEAR [facility] Comment on above: Performed By: #### U A #### [facility] ([id number]) [address] [place] [address] Urobilinogen (U) [Mass/Vol] mg/dL Normal <1.1 [facility] Comment on above: Performed By: #### U A #### [facility] ([id number]) [address] [place] [address] W.B.CELLS 7 /hpf High 0-5 [facility] Comment on above: Performed By: #### U A #### [facility] ([id number]) [address], [address] [place] [address] Urinalysison 12-12-2024 Epithelial cells Auto (Urine sed) [#/Area] [address] [facility] Glucose (U) [Mass/Vol] Negative Negative^Nega tive mg/dL [facility] Hemoglobin Auto test strip Ql (U) Negative Negative^Nega tive [facility] Interpretation and review of laboratory results Abnormal [facility] Ketones (U) [Mass/Vol] Negative Negative^Nega tive mg/dL [facility] Leukocyte esterase Auto test strip Ql (U) Small Abnormal Negative^Nega tive [facility] Mucus Ql (Urine sed) PRESENT Abnormal NONE^NONE [facility] Nitrite Auto test strip Ql (U) Negative Negative^Nega tive [facility] pH (U) 6 [pH] 5.0 - 8.5 [facility] Protein (U) [Mass/Vol] Negative Negative^Nega tive mg/dL [facility] RBC Auto (Urine sed) [#/Area] 1 [facility] Specific gravity Refractometry automated (U) [Rel density] 1.008 1.003 - 1.035 [facility] Turbidity Ql (U) CLEAR CLEAR^CLEAR [facility] Urobilinogen Qn (U) NINF [facility] WBC Auto (Urine sed) [#/Area] [address] [facility] aPTT Coag (PPP) [Time]on aPTT Coag (Bld) [Time] 29 s Normal 26-37 [facility] Comment on above: Performed By: #### C BCA, PINR, 67970-9, BMP #### [facility] ([id number]) [address] [place] [address], [address] [place] [address] Office Visiton 12-02-2024 Follow-up visit [id number] Isaura Ruiz 1955 F Date Provider Department Center 12/02/2024 3848-WILLIAM AHN [facility] Family History Problem Relation Age of Onset No Known Problems Mother No Known Problems Father Family Status - Relation Status Age at Mother Father Level of Service:72564 [place] OFFICE/OUTPATIENT NEW MODERATE MDM 45 MINUTES Normal [facility] INSULINon 07-16-2022 Insulin 14.3 uIU/mL Normal 2.6-24.9 [facility] Comment on above: Performed By: #### I NSULIN #### [facility] [address] [address] [address] Lemuel Serrato CBC AUTO DIFFon 07-15-2022 BASO # 0.0 103/ul Normal 0.0-0.1 [facility] Comment on above: Performed By: #### C BC #### [facility] [address] [place] [address] Dr. Lemuel Serrato Basophils/100 WBC (Bld) 0.4 % Normal 0.2-2.0 [facility] Comment on above: Performed By: #### C BC #### [facility] [address] [place] [address] Dr. Lemuel Serrato EO # 0.2 103/ul Normal 0.0-0.7 [facility] Comment on above: Performed By: #### C BC #### [facility] [address] [place] [address] Dr. Lemuel Serrato Eosinophils/100 WBC (Bld) 2.7 % Normal 0.9-7.0 [facility] Comment on above: Performed By: #### C BC #### [facility] [address] [place] [address] Dr. Lemuel Serrato Erythrocyte distribution width (RBC) [Ratio] 15.9 % Critically high 11.0-15.0 [facility] Comment on above: Performed By: #### C BC #### [facility] [address] [place] [address] Dr. Lemuel Serrato Hematocrit (Bld) [Volume fraction] 30.5 % Critically low 36.0-48.0 [facility] Comment on above: Performed By: #### C BC #### [facility] [address] [place] [address] Dr. Lemuel Serrato Hemoglobin (Bld) [Mass/Vol] 9.0 g/dL Critically low 12.0-16.0 [facility] Comment on above: Performed By: #### C BC #### [facility] [address] [place] [address] Dr. Lemuel Serrato IG # 0.03 10e3/ul Normal 0.00-0.03 [facility] Comment on above: Performed By: #### C BC #### [facility] [address] [place] [address] Dr. Lemuel Serrato IG % 0.4 % Normal 0.0-0.5 [facility] Comment on above: Performed By: #### C BC #### [facility] [address] [address] [address] Lemuel Serrato LYMPH # 3.1 103/ul Normal 1.2-3.8 [facility] Comment on above: Performed By: #### C BC #### [facility] [address] [address] [address] Lemuel Serrato Lymphocytes/100 WBC (Bld) 41.8 % Normal 20.5-60.0 [facility] Comment on above: Performed By: #### C BC #### [facility] [address] [address] [address] Lemuel Serrato MANUAL DIFF REQ NO Normal [facility] Comment on above: Performed By: #### C BC #### [facility] [address] [place] [address] Dr. Lemuel Serrato MCH (RBC) [Entitic mass] 18.9 pg Critically low 26.7-34.0 [facility] Comment on above: Performed By: #### C BC #### [facility] [address] [place] [address] Dr. Lemuel Serrato MCHC (RBC) [Mass/Vol] 29.5 g/dL Critically low 29.9-35.2 [facility] Comment on above: Performed By: #### C BC #### [facility] [address] [place] [address] Dr. Lemuel Serrato MCV (RBC) [Entitic vol] 64.2 fL Critically low 81.0-99.0 [facility] Comment on above: Performed By: #### C BC #### [facility] [address] [place] [address] Dr. Lemuel Serrato MONO # 0.7 103/ul Normal 0.3-0.8 [facility] Comment on above: Performed By: #### C BC #### [facility] [address] [place] [address] Dr. Lemuel Serrato Monocytes/100 WBC (Bld) 8.8 % Normal 1.7-12.0 [facility] Comment on above: Performed By: #### C BC #### [facility] [address] [place] [address] Dr. Lemuel Serrato NEUT # 3.4 103/ul Normal 1.4-6.5 [facility] Comment on above: Performed By: #### C BC #### [facility] [address] [place] [address] Dr. Lemuel Serrato Neutrophils/100 WBC (Bld) 45.9 % Normal 43.0-75.0 [facility] Comment on above: Performed By: #### C BC #### [facility] [address] [place] [address] Dr. Lemuel Serrato Platelet mean volume (Bld) [Entitic vol] 9.8 fL Normal 9.5-13.5 [facility] Comment on above: Performed By: #### C BC #### [facility] [address] [place] [address] Dr. Lemuel Serrato PLT 263 103/ul Normal 150-450 [facility] Comment on above: Performed By: #### C BC #### [facility] [address] [place] [address] Dr. Lemuel Serrato RBC 4.75 106/ul Normal 4.20-5.40 [facility] Comment on above: Result Comment: SLIG HT MICROCYTOSIS 1+ POIKILOCYTOSIS 1+ OVALOCYTE SLIGHT ACANTHOCYTE Performed By: #### C BC #### [facility] [address] [place] [address] Dr. Lemuel Serrato WBC 7.4 103/ul Normal 4.0-11.0 [facility] Comment on above: Performed By: #### C BC #### [facility] [address] [place] [address] Dr. Lemuel Serrato FREE THYROXINE INDEX T7on FTI 2.15 Normal 1.30-4.50 [facility] Comment on above: Performed By: #### T 7, LIPID, TSH, CMP #### [facility] [address] [place] [address] Dr. Lemuel Serrato T3U 33.0 % Normal 30.0-39.0 [facility] Comment on above: Performed By: #### T 7, LIPID, TSH, CMP #### [facility] [address] [address] [address] Lemuel Serrato T4 [Mass/Vol] 6.50 ug/dL Normal 4.80-13.90 [facility] Comment on above: Performed By: #### T 7, LIPID, TSH, CMP #### [facility] [address] [address] [address] Lemuel Serrato GLYCOHEMOGLOBIN A1Con 2021 ADA RECOMMENDATION SEE BELOW Normal [facility] Comment on above: Result Comment: ADA RECOMMENDED LIMIT 4.0 - 6.0 ADA THERAPEUTIC TARGET < 7.0 ACTION SUGGESTED > 7.0 Performed By: #### A 1C #### [facility] [address] [place] [address] Dr. Lemuel Serrato Glucose [Mass/Vol] 137 mg/dL Normal [facility] Comment on above: Performed By: #### A 1C #### [facility] [address] [address] [address] Lemuel Serrato HbA1c (Bld) [Mass fraction] 6.4 % Critically high 4.5-6.2 [facility] Comment on above: Performed By: #### A 1C #### [facility] [address] [address] [address] Lemuel Serrato IRONon 07-15-2022 Iron [Mass/Vol] 70.0 ug/dL Normal 50.0-170.0 [facility] Comment on above: Performed By: #### I MARAL #### [facility] [address] [place] [address] Dr. Lemuel Serrato LIPID PROFILEon 07-15-2022 CHOL-HDL RATIO NORM SEE BELOW Normal [facility] Comment on above: Result Comment: 3.3 - 4.4 LOW RISK 4.4 - 7.1 AVERAGE RISK 7.1 - 11.0 MODERATE RISK >11.0 HIGH RISK Performed By: #### T 7, LIPID, TSH, CMP #### [facility] [address] [address] [address] Lemuel Serrato Cholesterol [Mass/Vol] 152 mg/dL Normal <=200 [facility] Comment on above: Performed By: #### T 7, LIPID, TSH, CMP #### [facility] [address] [address] [address] Lemuel Serrato Cholesterol in HDL [Mass/Vol] 32 mg/dL Critically low 40-60 [facility] Comment on above: Performed By: #### T 7, LIPID, TSH, CMP #### [facility] [address] [address] [address] Lemuel Serrato Cholesterol in LDL [Mass/Vol] 96.8 mg/dL Normal [facility] Comment on above: Performed By: #### T 7, LIPID, TSH, CMP #### [facility] [address] [place] [address] Dr. Lemuel Serrato Cholesterol.total/Ch olesterol in HDL [Mass ratio] 4.8 {ratio} Normal [facility] Comment on above: Performed By: #### T 7, LIPID, TSH, CMP #### [facility] [address] [address] [address] Lemuel Serrato HDL NORMAL > or = 60 mg/dl - LOW CARDIOVASCULAR RISK <40 mg/dl - HIGH CARDIOVASCULAR RISK Normal [facility] Comment on above: Performed By: #### T 7, LIPID, TSH, CMP #### [facility] [address] [place] [address] Dr. Lemuel Serrato LDL CALC NORMAL SEE BELOW Normal [facility] Comment on above: Result Comment: <100 mg/dl OPTIMAL 100 - 129 mg/dl NEAR OR ABOVE OPTIMAL 130 - 159 mg/dl BORDERLINE HIGH 160 - 189 mg/dl HIGH >190 mg/dl VERY HIGH Performed By: #### T 7, LIPID, TSH, CMP #### [facility] [address] [address] [address] Lemuel Serrato Triglyceride [Mass/Vol] 116 mg/dL Normal <=150 [facility] Comment on above: Performed By: #### T 7, LIPID, TSH, CMP #### [facility] [address] [address] [address] Lemuel Serrato VLDL CALC 23.2 mg/dL Normal [facility] Comment on above: Performed By: #### T 7, LIPID, TSH, CMP #### [facility] [address] [address] [address] Lemuel Serrato PROF 14(COMP METB)on 022 Albumin [Mass/Vol] 3.5 g/dL Normal 3.4-5.0 [facility] Comment on above: Performed By: #### T 7, LIPID, TSH, CMP #### [facility] [address] [place] [address] Dr. Lemuel Serrato Albumin/Globulin [Mass ratio] 0.9 {ratio} Normal [facility] Comment on above: Performed By: #### T 7, LIPID, TSH, CMP #### [facility] [address] [place] [address] Dr. Lemuel Serrato ALP [Catalytic activity/Vol] 91 U/L Normal 46-116 [facility] Comment on above: Performed By: #### T 7, LIPID, TSH, CMP #### [facility] [address] [place] [address] Dr. Lemuel Serrato ALT [Catalytic activity/Vol] 21 U/L Normal 14-59 [facility] Comment on above: Performed By: #### T 7, LIPID, TSH, CMP #### [facility] [address] [place] [address] Dr. Lemuel Serrato Anion gap [Moles/Vol] 10.1 mmol/L Normal [facility] Comment on above: Performed By: #### T 7, LIPID, TSH, CMP #### [facility] [address] [place] [address] Dr. Lemuel Serrato AST [Catalytic activity/Vol] 10 U/L Critically low 15-37 [facility] Comment on above: Performed By: #### T 7, LIPID, TSH, CMP #### [facility] [address] [place] [address] Dr. Lemuel Serrato Bilirubin [Mass/Vol] 0.3 mg/dL Normal 0.2-1.0 [facility] Comment on above: Performed By: #### T 7, LIPID, TSH, CMP #### [facility] [address] [address] [address] Lemuel Serrato Calcium [Mass/Vol] 8.6 mg/dL Normal 8.5-10.1 [facility] Comment on above: Performed By: #### T 7, LIPID, TSH, CMP #### [facility] [address] [address] [address] Lemuel Serrato Chloride [Moles/Vol] 107 mmol/L Normal 98-107 [facility] Comment on above: Performed By: #### T 7, LIPID, TSH, CMP #### [facility] [address] [address] [address] Lemuel Serrato CO2 [Moles/Vol] 25.8 mmol/L Normal 21.0-32.0 [facility] Comment on above: Performed By: #### T 7, LIPID, TSH, CMP #### [facility] [address] [place] [address] Dr. Lemuel Serrato Creatinine [Mass/Vol] 1.20 mg/dL Critically high 0.55-1.02 [facility] Comment on above: Performed By: #### T 7, LIPID, TSH, CMP #### [facility] [address] [address] [address] Lemuel Serrato EGFR-AF CZECH 55 mL/min/1.73m2 Critically low >=60 [facility] Comment on above: Performed By: #### T 7, LIPID, TSH, CMP #### [facility] [address] [address] [address] Lemuel Serrato EGFR-NON AF CZECH 45 mL/min/1.73m2 Critically low >=60 [facility] Comment on above: Performed By: #### T 7, LIPID, TSH, CMP #### [facility] [address] [address] [address] Lemuel Serrato Globulin (S) [Mass/Vol] 3.9 g/dL Normal [facility] Comment on above: Performed By: #### T 7, LIPID, TSH, CMP #### [facility] [address] [address] [address] Lemuel Serrato Glucose [Mass/Vol] 96 mg/dL Normal 74-106 [facility] Comment on above: Performed By: #### T 7, LIPID, TSH, CMP #### [facility] [address] [place] [address] Dr. Lemuel Serrato Potassium [Moles/Vol] 3.9 mmol/L Normal 3.5-5.1 [facility] Comment on above: Performed By: #### T 7, LIPID, TSH, CMP #### [facility] [address] [place] [address] Dr. Lemuel Serrato Protein [Mass/Vol] 7.4 g/dL Normal 6.4-8.2 [facility] Comment on above: Performed By: #### T 7, LIPID, TSH, CMP #### [facility] [address] [place] [address] Dr. Lemuel Serrato Sodium [Moles/Vol] 139 mmol/L Normal 136-145 [facility] Comment on above: Performed By: #### T 7, LIPID, TSH, CMP #### [facility] [address] [place] [address] Dr. Lemuel Serrato Urea nitrogen [Mass/Vol] 23.0 mg/dL Critically high 7.0-18.0 [facility] Comment on above: Performed By: #### T 7, LIPID, TSH, CMP #### [facility] [address] [place] [address] Dr. Lemuel Serrato Urea nitrogen/Creatinine [Mass ratio] 19.2 mg/mg Normal [facility] Comment on above: Performed By: #### T 7, LIPID, TSH, CMP #### [facility] [address] [place] [address] Dr. Lemuel Serrato TSHon 07-15-2022 TSH 2.220 uIU/mL Normal 0.358-3.740 [facility] Comment on above: Performed By: #### T 7, LIPID, TSH, CMP #### [facility] [address] [place] [address] Dr. Lemuel Serrato Vital Signs Date Time Vital Sign Value Performing Clinician Facility 03-06-2025 10:02-0400 Body height 165.1 cm Maldonado Prince MD Work Phone: [facility] 03-06-2025 10:02-0400 Body mass index (BMI) [Ratio] 27.46 kg/m2 Maldonado Prince MD Work Phone: [facility] 03-06-2025 10:02-0400 Body temperature 96.8 [degF] Maldonado Prince MD Work Phone: [facility] 03-06-2025 10:02-0400 Body weight 74.84 kg Maldonado Prince MD Work Phone: [facility] 03-06-2025 10:02-0400 Diastolic blood pressure 74 mm[Hg] Maldonado Prince MD Work Phone: [facility] 03-06-2025 10:02-0400 Heart rate 88 /min Maldonado Prince MD Work Phone: [facility] 03-06-2025 10:02-0400 SaO2% (BldA) [Mass fraction] 97 % Maldonado Prince MD Work Phone: [facility] 03-06-2025 10:02-0400 Systolic blood pressure 156 mm[Hg] Maldonado Prince MD Work Phone: [facility] 01-02-2025 10:11-0400 Body temperature 97.7 [degF] Maldonado Prince MD Work Phone: [facility] 01-02-2025 10:11-0400 Diastolic blood pressure 72 mm[Hg] Maldonado Prince MD Work Phone: [facility] 01-02-2025 10:11-0400 Heart rate 90 /min Maldonado Prince MD Work Phone: [facility] 01-02-2025 10:11-0400 SaO2% (BldA) [Mass fraction] 97 % Maldonado Prince MD Work Phone: [facility] 01-02-2025 10:11-0400 Systolic blood pressure 128 mm[Hg] Maldonado Prince MD Work Phone: [facility] 12-19-2024 11:17-0400 Body temperature 97.7 [degF] Maldonado Prince MD Work Phone: [facility] 12-19-2024 11:17-0400 Diastolic blood pressure 57 mm[Hg] Maldonado Prince MD Work Phone: [facility] 12-19-2024 11:17-0400 Heart rate 83 /min Maldonado Prince MD Work Phone: [facility] 12-19-2024 11:17-0400 Respiratory rate 14 /min Maldonado Prince MD Work Phone: [facility] 12-19-2024 11:17-0400 SaO2% (BldA) [Mass fraction] 94 % Maldonado Prince MD Work Phone: [facility] 12-19-2024 11:17-0400 Systolic blood pressure 103 mm[Hg] Maldonado Prince MD Work Phone: [facility] 12-17-2024 20:25-0400 Body height 165.1 cm Maldonado Prince MD Work Phone: [facility] 12-17-2024 20:25-0400 Body mass index (BMI) [Ratio] 27.04 kg/m2 Maldonado Prince MD Work Phone: [facility] 12-17-2024 20:25-0400 Body weight 73.7 kg Maldonado Prince MD Work Phone: [facility] 12-12-2024 12:35-0500 Body height 165.1 cm [facility] 12-12-2024 12:35-0500 Body mass index (BMI) [Ratio] 27.29 kg/m2 [facility] 12-12-2024 12:35-0500 Body temperature 97.2 [degF] [facility] 1 [facility] 12-12-2024 12:35-0500 Body weight 74.39 kg [facility] 1 [facility] 12-12-2024 12:35-0500 Diastolic blood pressure 75 mm[Hg] [facility] 1 [facility] 12-12-2024 12:35-0500 Heart rate 78 /min [facility] 1 [facility] 12-12-2024 12:35-0500 Respiratory rate 20 /min [facility] 1 [facility] 12-12-2024 12:35-0500 SaO2% (BldA) [Mass fraction] 97 % [facility] 12-12-2024 12:35-0500 Systolic blood pressure 181 mm[Hg] [facility] 11-28-2024 10:36-0500 Body height 165.1 cm Maldonado Prince MD Work Phone: [facility] 11-28-2024 10:36-0500 Body mass index (BMI) [Ratio] 27.46 kg/m2 Maldonado Prince MD Work Phone: [facility] 11-28-2024 10:36-0500 Body temperature 97.39 [degF] Maldonado Prince MD Work Phone: [facility] 11-28-2024 10:36-0500 Body weight 74.84 kg Maldonado Prince MD Work Phone: [facility] 11-28-2024 10:36-0500 Diastolic blood pressure 88 mm[Hg] Maldonado Prince MD Work Phone: [facility] 11-28-2024 10:36-0500 Heart rate 73 /min Maldonado Prince MD Work Phone: [facility] 11-28-2024 10:36-0500 Respiratory rate 16 /min Maldonado Prince MD Work Phone: [facility] 11-28-2024 10:36-0500 SaO2% (BldA) [Mass fraction] 98 % Maldonado Prince MD Work Phone: [facility] 11-28-2024 10:36-0500 Systolic blood pressure 168 mm[Hg] Maldonado Prince MD Work Phone: [facility] 07-08-2024 13:21-0400 Body height 165.1 cm [facility] 07-08-2024 13:21-0400 Body mass index (BMI) [Ratio] 26.1 kg/m2 [facility] 07-08-2024 13:21-0400 Body temperature 97.8 [degF] [facility] 07-08-2024 13:21-0400 Body weight 71.21 kg [facility] 07-08-2024 13:21-0400 Diastolic blood pressure 86 mm[Hg] [facility] 07-08-2024 13:21-0400 Heart rate 98 /min [facility] 07-08-2024 13:21-0400 Respiratory rate 18 /min [facility] 07-08-2024 13:21-0400 SaO2% (BldA) [Mass fraction] 97 % [facility] 07-08-2024 13:21-0400 Systolic blood pressure 163 mm[Hg] [facility] 09-07-2021 15:00-0500 Body height 165.1 cm Evonne Ginty Other [employer] [facility] [employer] Other 09-07-2021 15:00-0500 Body mass index (BMI) [Ratio] 26.62 kg/m2 Evonne Ginty Other [employer] Other 09-07-2021 15:00-0500 Body temperature 100.6 [degF] Evonne Ginty Other [employer] Other 09-07-2021 15:00-0500 Body weight 72.58 kg Evonne Ginty Other [employer] Other 09-07-2021 15:00-0500 SaO2% (BldA) [Mass fraction] 96 % Evonne Ginty Other [employer] Other Encounters Encounter Date Encounter Type Care Provider Facility Start: 06-25-2025 End: 06-25-2025 ambulatory Skye Bowman MD Work Phone: [facility] Work Phone: Start: 06-25-2025 End: 06-25-2025 Patient encounter procedure Gentrykerripop Hooker DO -[facility] Work Phone: Start: 03-06-2025 End: 03-06-2025 Office outpatient visit 25 minutes Maldonado Prince MD Work Phone: [facility] Comment on above: 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 (CMS-HCC) (Primary Dx) Start: 03-06-2025 End: 03-06-2025 ambulatory [facility] Start: 01-02-2025 End: 01-02-2025 Postop follow up visit related to original px Maldonado Prince MD Work Phone: [facility] Comment on above: Critical limb ischem ia of both lower extremities (CMS-HCC) (Primary Dx) Start: 01-02-2025 End: 01-02-2025 ambulatory [facility] Start: 12-17-2024 ambulatory [facility] Start: 12-17-2024 End: 12-19-2024 Evaluation and management of inpatient Maldonado Prince MD Work Phone: [address] Acute Start: 12-12-2024 End: 12-12-2024 Patient encounter procedure [facility] Comment on above: Pre-op testing (Prim brissa Dx); 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); Claudication (CMS-HCC) Start: 12-12-2024 End: 12-12-2024 Patient encounter status [facility] Start: 12-12-2024 End: 12-12-2024 ambulatory [facility] Start: 12-12-2024 End: 12-12-2024 ambulatory [facility] Start: 12-12-2024 End: 12-12-2024 ambulatory [facility] Start: 12-12-2024 Encounter for other preprocedural examination [facility] Start: 12-02-2024 End: 12-02-2024 ambulatory [facility] Start: 12-02-2024 End: 12-02-2024 Encounter for other preprocedural examination [facility] Start: 11-28-2024 End: 11-28-2024 Office outpatient new 45 minutes Maldonado Prince MD Work Phone: [facility] Comment on above: 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 ([facility]-HCC) (Primary Dx); Claudication ([facility]-HCC) Start: 11-28-2024 End: 11-28-2024 ambulatory [facility] Start: 11-18-2024 End: 11-18-2024 ambulatory Garrison Duenas MD Facility: [facility] Start: 11-04-2024 End: 11-04-2024 ambulatory Garrison Duenas MD Facility: [facility] Start: 10-21-2024 End: 10-21-2024 ambulatory Garrison Duenas MD Facility: [facility] Start: 07-08-2024 End: 07-08-2024 ambulatory [facility] Work Phone: Start: 07-08-2024 End: 07-08-2024 Patient encounter procedure [facility] Work Phone: Start: 11-04-2023 Refill Indu Cash MD Work Phone: [facility] Comment on above: PVD (peripheral vasc ular disease) ([facility]-HCC); Claudication (CMS-HCC); Bilateral carotid bruits Start: 07-18-2022 Encounter for genera l adult medical examination without abnormal findings DR SKYE BOWMAN [facility] Start: 07-15-2022 End: 07-16-[address] SKYE BOWMAN Facility:[facility] Start: 07-15-2022 End: 07-16-2022 Encounter for general adult medical examination without abnormal findings DR SKYE BOWMAN Facility:[facility] Start: 06-27-2022 End: 06-28-2022 ambulatory TED CASTREJON Facility:[facility] Start: 09-07-2021 End: 09-07-2021 ambulatory Evonne Rayray Other [employer] Other Start: 09-07-2021 Office outpatient vi sit 15 minutes Evonne Seo [facility] Start: 11-23-2017 End: 11-24-2017 Ambulatory DEFAULT PHYSICIAN Facility:[facility] Procedures Date Procedure Procedure Detail Performing Clinician Start: 12-19-2024 Comprehensive metabolic panel Lion Hooker Pawasarat DO Work Phone: Start: 12-18-2024 Blood count hematocrit Channing Frazier [employer]ACHINE G[employer] MECH[employer]IC[employer]SYSTEM SUPPORT DEVELOPER Work Phone: Start: 12-18-2024 REPEATED ABORH Channing gaspar MACHINE GUN MECHANIC-SYSTEM SUPPORT DEVELOPER Work Phone: Start: 12-18-2024 Comprehensive metabolic panel Lion M Pawasarat DO Work Phone: Start: 12-17-2024 Basic [...] MD Work Phone: Start: 12-12-2024 ANTIBODY ID Maldnoado Prince MD Work Phone: Start: 12-12-2024 Blood typing serologic abo Maldonado Prince MD Work Phone: Start: 12-12-2024 COMPLETE ANTIBODY SCREEN Maldonado Prince MD Work Phone: Start: 12-12-2024 REPEATED ABORH Maldonado Prince MD Work Phone: Plan of Treatment Date Care Activity Detail Author Start: 12-17-2025 Adult BMI Screening Adult BMI Screen ing [facility] Start: 12-17-2025 Depression Screening Depression Scre ening [facility] Start: 12-17-2025 Tobacco Screening Tobacco Screening [facility] Start: 12-12-2025 Adult BMI Screening Adult BMI Screen ing [facility] Start: 12-12-2025 Tobacco Screening Tobacco Screening [facility] Start: 11-28-2025 Adult BMI Screening Adult BMI Screen ing [facility] Start: 11-28-2025 Tobacco Screening Tobacco Screening [facility] Start: 06-09-2025 Influenza vaccination Influenza Vacc ine [facility] Start: 03-06-2025 End: 03-06-2026 US.doppler Extremity arteries - bilateral for physiologic artery study Vas art doppler lwr bilat mult lev/PVR Vascular Ultrasound Routine 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) Expected: 03/06/2025, Expires: 03/06/2026 [facility] Comment on above: Expected: 03/06/2025 , Expires: 03/06/2026 Start: 03-06-2025 End: 03-06-2026 US.doppler Lower extremity artery - bilateral Vas art duplex lwr graft scan bilat Vascular Ultrasound Routine 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 ([facility]) Expected: 03/06/2025, Expires: 03/06/2026 [facility] Work Phone: Comment on above: Expected: 03/06/2025 , Expires: 03/06/2026 Start: 01-02-2025 End: 01-02-2026 US.doppler Extremity arteries - bilateral for physiologic artery study Vas art doppler lwr bilat mult lev/PVR Vascular Ultrasound Routine Critical limb ischemia of both lower extremities ([facility]) Expected: 01/02/2025, Expires: 01/02/2026 [facility] Work Phone: Comment on above: Expected: 01/02/2025 , Expires: 01/02/2026 Start: 01-02-2025 End: 01-02-2025 Patient encounter procedure 01/02/2025 10:20 AM EDT Office Visit [facility] [address] [place] [phone] Maldonado Prince MD [address], [address] [address] [facility] Start: 12-17-2024 End: 12-17-2024 Admission to same day surgery center 12/17/2024 10:30 AM EDT - 12/17/2024 1:00 PM EDT Surgery [facility] [address] [place] [phone] Maldonado Prince MD [address], [address] [address] ANGIOPLASTY ILIAC [72703 (CPT )] [facility] Comment on above: ANGIOPLASTY ILIAC [3 7920 (CPT )] Start: 12-17-2024 End: 12-17-2024 Revascularization iliac artery angiop 1st [facility] Start: 12-17-2024 Subsequent hospital visit by physician 12/17/2024 10:30 AM EDT Hospital Encounter [facility] [address] [place] [id number] Maldonado Prince MD [address] [place] [address] [facility] Start: 12-13-2024 End: 12-13-2024 Patient encounter procedure 12/13/2024 9:00 AM EST [facility] [address] [place] [address] Kaushal Alcaraz MD [address] [place] [address] [facility] Start: 06-09-2024 Influenza vaccination Influenza Vacc ine [facility] Start: 07-22-2023 Tobacco Screening Tobacco Screening [facility] Start: 06-09-2023 Influenza vaccination Influenza Vacc ine [facility] Start: 2022 Fall Risk Screening Fall Risk Screen ing [facility] Start: 12-29-2021 DTaP,Tdap and Td Vac cines (2 - Td or Tdap) DTaP,Tdap and Td Vaccines (2 - Td or Tdap) [facility] Start: 2007 [facility] zoster vaccine Zoster (Shingles) Vaccine (1 of 2) [facility] Start: 1975 Adult BMI Follow Up Plan Adult BMI Follow Up Plan [facility] Start: 1975 Adult BMI Screening Adult BMI Screen ing [facility] Start: 1969 Depression Screening Depression Scre ening [facility] Start: 1957 Tobacco Counseling Tobacco Counselin g [facility] Comprehensive metabo lic 2000 panel - Serum or Plasma Comprehensive metabolic panel Lab Routine Lab max of 3 days, Daily, for lab use only until discontinued starting 12/18/2024, 2 completed [facility] Comment on above: Lab max of 3 days, D aily, for lab use only until discontinued starting 12/18/2024, 2 completed Magnesium [Mass/volu me] in Serum or Plasma Magnesium Lab Routine Lab max of 3 days, Daily, for lab use only until discontinued starting 12/18/2024, 2 completed [employer] Comment on above: Lab max of 3 days, D aily, for lab use only until discontinued starting 12/18/2024, 2 completed Oxygen Therapy - [place] ntain SpO2: 90%; *CARBONATING STONE CLEANER Guidelines for O2: Yes; Document: \[email or web address]\epic\E PIC_Reference\Orders\Respir atory Care Guidelines\CPG Oxygen 2022.pdf Oxygen Therapy - Maintain SpO2: 90%; *CARBONATING STONE CLEANER Guidelines for O2: Yes; Document: \[email or web address]\e pic\EPIC_Reference\Ord ers\Respiratory Care Guidelines\CPG Oxygen 2022.pdf Respiratory Care Routine As Needed until discontinued starting 12/17/2024 [employer] Work Phone: Comment on above: As Needed until disc ontinued starting 12/17/2024 Phosphate [Mass/volu me] in Serum or Plasma Phosphorus Lab Routine Lab max of 3 days, Daily, for lab use only until discontinued starting 12/18/2024, 2 completed [employer] Comment on above: Lab max of 3 days, D aily, for lab use only until discontinued starting 12/18/2024, 2 completed End: 12-18-2024 Type and screen(includes indirect adrian) Type and screen(includes indirect adrian) Blood Bank Routine Once for 1 Occurrences starting 12/18/2024 until 12/18/2024 [employer] Work Phone: Comment on above: Once for 1 Occurrenc es starting 12/18/2024 until 12/18/2024 Immunizations Immunization Date Immunization Notes Care Provider Mike de dios 12-30-2011 tetanus and diphther ia toxoids, adsorbed, preservative free, for adult use (5 Lf of tetanus toxoid and 2 Lf of diphtheria toxoid) Maldonado Prince MD Work Phone: [employer] Payers Date Payer Category Payer Medicare 2022 Medicare [id number] [facility] [id number] 1959 Unknown [id number] 2.16. [id number] 1957 Unknown [id number] 2.16.84 [id number] 1957 Unknown [id number] 2.16.84 [id number] 1957 Unknown [id number] 2.16. [id number] 1957 Unknown [id number] 2.16. [id number] 1957 Unknown [id number] 2.16. 840.1.598411.3.579.2.196 1957 Unknown [id number] 2.16. [id number] 1957 Unknown [id number] 2.16. 840.1.649669.3.579.2.128 1957 Unknown [id number] 2.16. [id number] 1957 Unknown [id number] 2.16. 840.1.276742.3.579.2.1286 1957 Unknown [id number] 2.16. 840.1.784739.3.579.2.128 1957 Unknown [id number] 2.16. [id number] 1957 Unknown [id number] 2.16. [id number] 1957 Unknown [id number] 2.16. [id number] 1957 Unknown [id number] 2.16. [id number] 1957 Unknown [id number] 2.16. [id number] Unknown Social History Date Type Detail Facility Start: 07-22-2022 End: 03-06-2025 Sex Assigned At [facility] [employer] Other Start: 10-09-1966 [facility] Start: 1955 Sex Assigned At Female F [facility] Start: 07-22-2022 End: 04-16-2025 Tobacco smoking status NHIS Smokes tobacco daily [facility] Start: 10-09-1966 History of tobacco use Cigarette Smo ker [facility] Start: 07-22-2022 End: 12-17-2024 Tobacco use and exposure Smokeless tobacco non-user [facility] Start: 07-22-2022 End: 03-06-[address] [facility] Start: 07-22-2022 End: 03-06-2025 History of Social function [facility] Childcare Unknown [facility] Start: 1955 Sex Assigned At Not on file P [facility] Start: 05-14-2015 Sex Female (finding) [facility] Start: 12-17-2024 [facility] Has the [employer], [employer], [employer], or water company threatened to shut off services in your home in past 12Mo No [facility] How often to you hav e a drink containing alcohol? Never [facility] Medical Equipment Procedure Code Equipment Code Equipment Origin al Text Equipment Identifier Dates Graft Cv 60cm 7m m Thor [address] - [id number] - [id number] Start: 12-17-2024 Comment on above: Description: FEMORAL -FEMORAL ARTERY Patch Vsc 8x.8cm Xenosure Bvn Pricrd Tiss Strl Rpl [id number] - [id number] Start: 12-17-2024 Comment on above: Description: LEFT FE MORAL ARTERY Patch Vsc 8x.8cm Xenosure Bvn Pricrd Tiss Strl Rpl [id number] - [id number] Start: 12-17-2024 Comment on above: Description: LEFT FE MORAL ARTERY Patch Vsc 8x.8cm Xenosure Bvn Pricrd Tiss Strl Rpl [id number] - [id number] Start: 12-17-2024 Comment on above: Description: RIGHT F EMORAL ARTERY Goals Date Patient Goal Desired Activity /State Personal health goal Comment on above: Formatting of this n ote might be different from the original. 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 Her wound almost healed completely. She is doing very well. Noninvasive testing she has only mild occlusive disease. 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 Her wound almost healed completely. She is doing very well. Noninvasive testing she has only mild occlusive disease. Plan is continue aspirin Plavix and statin PVR and a graft duplex ultrasound and follow up in 6 months documented in this encounter [facility] 03-06-2025 History of Present illness Narrative Images from the original note were not included. To: SKYE BOWMAN MD HPI: Isaura Ruiz is a 69 y.o. female with history of right lower extremity critical limb ischemia status post iliofemoral endarterectomy and fem-fem bypass. She is doing very well. She was an YESSY of 0.86 the wound healed with the exception small 2 cm area that almost healed as well. She is on aspirin Plavix and statin.. Review of Systems: Review of Systems Constitutional: [...] mouth twice a day 180 tablet 1 cloNIDine (CATAPRES) 0.1 mg tablet Take 1 [...] 1 capsule (300 mg total) before bedtime. lisinopriL (PRINIVIL,ZESTRIL) 10 mg tablet Take 1 tablet (10 mg total) by mouth in the morning. zonisamide (ZONEGRAN) 50 mg capsule Take 2 capsules (100 mg total) by mouth in the morning. baclofen (LIORESAL) 10 mg tablet Take 1 tablet (10 mg total) by mouth 3 (three) times a day. (Patient not taking: Reported on 03/06/2025) cefDINIR (OMNICEF) 300 mg capsule Take 2 capsules (600 mg total) by mouth in the morning and 2 capsules (600 mg total) before bedtime. (Patient not taking: Reported on 03/06/2025) doxycycline (MONODOX) 100 mg capsule Take 1 capsule (100 mg total) by mouth in the morning and 1 capsule (100 mg total) before bedtime. (Patient not taking: Reported on 03/06/2025) No current facility-administered medications on file prior to visit. Past Medical History: Past Medical History: Diagnosis Date Anemia Dental disease full denture GERD (gastroesophageal reflux disease) Hyperlipidemia Hypertension Past Surgical History: Past Surgical History: Procedure Laterality Date ANGIOGRAM RIGHT LEG/ LEFT ILIAC ANGIOGRAM Right 12/17/2024 Performed by Maldonado Prince MD at [facility] BILATERAL FEMORAL CUTDOWNS/ BILATERAL FEMORAL ENDARTERECTOMY Bilateral 12/17/2024 Performed by Maldonado Prince MD at [facility] BOVINE PATCH ANGIOPLASTY FEMORAL Bilateral 12/17/2024 Performed by Maldonado Prince MD at [facility] BREAST LUMPECTOMY Left 1989 BYPASS ARTERY LEFT-RIGHT FEMORAL Bilateral 12/17/2024 Performed by Maldonado Prince MD at [facility] CHOLECYSTECTOMY 1992 LEFT DCB ANGIOPLASTY COMMON & EXTERNAL ILIAC ARTERY Left 12/17/2024 Performed by Maldonado Prince MD at [facility] TUBAL LIGATION 1985 Social and Family History: Social History Socioeconomic History Marital status: Spouse name: Not on file Number of children: Not on file Years of education: Not on file Highest education level: Not on file Occupational History Not on file Tobacco Use Smoking status: Former Average packs/day: 1 pack/day for 58.1 years [...] on file Food Insecurity: No Food Insecurity (03/06/2025) Hunger Screening Food Insecurity - Worry: Never True Food Insecurity - Inability: Never True Transportation Needs: No Transportation Needs (12/17/2024) PRAPARE - Transportation Lack of Transportation (Medical): No Lack of Transportation (Non-Medical): No Physical Activity: Not on file Stress: Not on file Social Connections: Not on file Interpersonal Safety: Not At Risk (12/17/2024) Humiliation, Afraid, Rape, and Kick questionnaire Fear of Current or Ex-Partner: No Emotionally Abused: No Physically Abused: No Sexually Abused: No Housing Instability: Low Risk (12/17/2024) Housing Instability Housing Instability: No Family History Problem Relation Age of Onset Cancer Mother Cancer Father Diabetes Sister Diabetes Maternal Grandmother Anesthesia problems Neg Hx Bleeding Disorder Neg Hx Clotting disorder Neg Hx Breast cancer Neg Hx Ovarian cancer Neg Hx Colon cancer Neg Hx Heart attack Neg Hx Stroke Neg Hx Recent Labs: Recent and relative labs were reviewed and interpreted and contributed to the assessment and plan below. Vitals: BP 156/74 (BP Site: Right Arm, BP Postition: Sitting, BP CUFF SIZE: M (9-13 inches)) Pulse 88 Temp 36 C (96.8 F) (Temporal) Ht 165.1 cm (5' 5 ) Wt 74.8 kg (165 lb) SpO2 97% BMI 27.46 kg/m Body mass index is [...] content normal. Judgment: Judgment normal. 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 Her wound almost healed completely. She is doing very well. Noninvasive testing she has only mild occlusive disease. Plan is continue aspirin Plavix and statin PVR and a graft duplex ultrasound and follow up in 6 months Isaura was seen today [facility] 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 While intending to generate a timely document that accurately reflects the content of the visit, no guarantee can be provided that every grammatical or spelling mistake has been or will be identified or corrected. Thank you for your understanding. documented in this encounter [facility] [employer] [facility] 01-02-2025 History of Present illness Narrative Vascular surgery progress note She [...] Maldonado Prince MD [facility] 12-19-[facility]24 Progress note Formatting of t his note is different from the original. Physical Therapy PT Type of Visit: Discharge from Therapy (Spoke with DEVAN Squires. Pt is being discharged home with no PT needs. Will sign off.) [facility]: 12-19-[facility]24 Miscellaneous Notes Physical Therapy PT Type of Visit: Discharge from Therapy (Spoke with DEVAN Squires. Pt is being discharged home with no PT needs. Will sign off.) Problem: Pain Goal: Patient goal is pain score less than 4, able to rest, and participant in treatment plan as appropriate Description: INTERVENTIONS: 1. Encourage patient or legal insurance account representative to report early pain and ask [...] per policy 9. Teach patient or legal insurance account representative interventions for comforting Outcome: Progressing Note: [...] at the bedside 7. Instruct patient/ patient insurance account representative about use of safety devices 8. Include patient/ patient insurance account representative in decisions related to safety Outcome: [...] hygiene technique. 7. Identify and instruct patient/patient insurance account representative in use of appropriate isolation precautions for identified infection/symptoms. 8. Provide and discuss with patient/patient insurance account representative on educational MDRO sheet. 9. Encourage and monitor nutritional status daily and consult croze machine operator if indicated. 10. Implement neutropenic guidelines as needed. Outcome: Progressing Note: Evaluation of progress towards goal: pt afebrile-cont to monitor Problem: Knowledge Deficit Goal: Patient/patient insurance account representative demonstrates understanding of disease process, treatment [...] Description: INTERVENTIONS: 1. Encourage patient or legal insurance account representative to report early pain and ask [...] per policy 9. Teach patient or legal insurance account representative interventions for comforting Outcome: Progressing Note: [...] at the bedside 7. Instruct patient/ patient insurance account representative about use of safety devices 8. Include patient/ patient insurance account representative in decisions related to safety Outcome: [...] hygiene technique. 7. Identify and instruct patient/patient insurance account representative in use of appropriate isolation precautions for identified infection/symptoms. 8. Provide and discuss with patient/patient insurance account representative on educational MDRO sheet. 9. Encourage and monitor nutritional status daily and consult croze machine operator if indicated. 10. Implement neutropenic guidelines as needed. Outcome: Progressing Note: Evaluation of progress towards goal: Vitals sign wnl. No sign of infection noted. Problem: Knowledge Deficit Goal: Patient/patient insurance account representative demonstrates understanding of disease process, treatment plan, medications, and discharge instructions Description: INTERVENTIONS 1. Complete learning assessment and assess knowledge base 2. Provide teaching at level of understanding 3. Provide teaching via preferred learning method(s) Outcome: Progressing Note: Evaluation of progress towards goal: Patient/patient insurance account representative demonstrates understanding of disease process, treatment [...] =/> 25 or indicated by [facility] Assessment Goal: Patient should be free from fall Description: Interventions: 1. [place] to environment 2. Hourly rounds addressing the [...] non-skid footwear 11. Teach patient and patient insurance account representative to maintain environment for safety and [...] (cane, walker) within reach 19. Request patient insurance account representative bring adaptive equipment/mobility aids from home or obtain and provide as needed 20. Consult pharmacy regarding effects of med's affecting mobility, cognition, and alternatives 21. Obtain physician order for PT if risk factors associated with mobility are present 22. Obtain physician order for OT as appropriate 23. Utilize diversional activities 24. Educate patient and patient insurance account representative how to maintain a safe environment during visitation times (notify nurse prior to leaving bedside) 25. Consider appropriateness of medical or non-medical services coordinator 26. Set up voiding schedule as appropriate (every 2 hours) Outcome: Progressing Note: Evaluation of progress towards goal: Area free from hazards, patient call light within reach, will continue to monitor patient for risk of falls. Images from the original note were not included. DISCHARGE PLANNING NOTE Coal Passer met with patient, introduced self, and explained role. Patient educated on safe discharge plan. 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 Consults: Vascular Surgery [...] medication assistance resources. PCP: SKYE BOWMAN MD Pharmacy:[facility] PCP and pharmacy confirmed with patient. CN [...] Description: INTERVENTIONS: 1. Encourage patient or legal insurance account representative to report early pain and ask [...] per policy 9. Teach patient or legal insurance account representative interventions for comforting Outcome: Progressing Note: [...] at the bedside 7. Instruct patient/ patient insurance account representative about use of safety devices 8. Include patient/ patient insurance account representative in decisions related to safety Outcome: [...] hygiene technique. 7. Identify and instruct patient/patient insurance account representative in use of appropriate isolation precautions for identified infection/symptoms. 8. Provide and discuss with patient/patient insurance account representative on educational MDRO sheet. 9. Encourage and monitor nutritional status daily and consult croze machine operator if indicated. 10. Implement neutropenic guidelines as needed. Outcome: Progressing Note: Evaluation of progress towards goal: Patient VSS, afebrile, labs being monitored daily. Problem: Knowledge Deficit Goal: Patient/patient insurance account representative demonstrates understanding of disease process, treatment [...] be free from fall Description: Interventions: 1. [place] to environment 2. Hourly rounds addressing the [...] non-skid footwear 11. Teach patient and patient insurance account representative to maintain environment for safety and [...] (cane, walker) within reach 19. Request patient insurance account representative bring adaptive equipment/mobility aids from home or obtain and provide as needed 20. Consult pharmacy regarding effects of med's affecting mobility, cognition, and alternatives 21. Obtain physician order for PT if risk factors associated with mobility are present 22. Obtain physician order for OT as appropriate 23. Utilize diversional activities 24. Educate patient and patient insurance account representative how to maintain a safe environment during visitation times (notify nurse prior to leaving bedside) 25. Consider appropriateness of medical or non-medical services coordinator 26. Set up voiding schedule as appropriate (every 2 hours) Outcome: Progressing Note: Evaluation of progress towards goal: Patient safety maintained. Hourly rounding, call light within reach. Problem: Pain Goal: Patient goal is pain score less than 4, able to rest, and participant in treatment plan as appropriate Description: INTERVENTIONS: 1. Encourage patient or legal insurance account representative to report early pain and ask [...] per policy 9. Teach patient or legal insurance account representative interventions for comforting Outcome: Progressing Note: [...] at the bedside 7. Instruct patient/ patient insurance account representative about use of safety devices 8. Include patient/ patient insurance account representative in decisions related to safety Outcome: [...] hygiene technique. 7. Identify and instruct patient/patient insurance account representative in use of appropriate isolation precautions for identified infection/symptoms. 8. Provide and discuss with patient/patient insurance account representative on educational MDRO sheet. 9. Encourage and monitor nutritional status daily and consult croze machine operator if indicated. 10. Implement neutropenic guidelines as needed. Outcome: Progressing Note: Evaluation of progress towards goal: Vitals sign wnl. No sign of infection noted. Problem: Knowledge Deficit Goal: Patient/patient insurance account representative demonstrates understanding of disease process, treatment plan, medications, and discharge instructions Description: INTERVENTIONS 1. Complete learning assessment and assess knowledge base 2. Provide teaching at level of understanding 3. Provide teaching via preferred learning method(s) Outcome: Progressing Note: Evaluation of progress towards goal: Patient/patient insurance account representative demonstrates understanding of disease process, treatment [...] be free from fall Description: Interventions: 1. [place] to environment 2. Hourly rounds addressing the [...] non-skid footwear 11. Teach patient and patient insurance account representative to maintain environment for safety and [...] (cane, walker) within reach 19. Request patient insurance account representative bring adaptive equipment/mobility aids from home or obtain and provide as needed 20. Consult pharmacy regarding effects of med's affecting mobility, cognition, and alternatives 21. Obtain physician order for PT if risk factors associated with mobility are present 22. Obtain physician order for OT as appropriate 23. Utilize diversional activities 24. Educate patient and patient insurance account representative how to maintain a safe environment during visitation times (notify nurse prior to leaving bedside) 25. Consider appropriateness of medical or non-medical services coordinator 26. Set up voiding schedule as appropriate (every 2 hours) Outcome: Progressing Note: Evaluation of progress towards goal: Area free from hazards, patient call light within reach, will continue to monitor patient for risk of falls. Images from the original note were not included. [facility] Operative Note DATE OF PROCEDURE: 12/17/2024 PATIENT NAME: Isaura Ruiz SURGEON: Surgeons and Role: * Maldonado Prince MD - Primary ASSISTANTS: Dr. Milo Thomas, Vascular Surgery Fellow STAFF: Glass Cutting Machine Operator Primary: Carly Gamez RN Glass Cutting Machine Operator Relief: Evonne Guzman RN Scrub Relief: Vasquez Nayak [facility] Scrub Person: ST Yesica Fellow: Milo Thomas MD; Lion Almaraz DO Scrub Orientee: ST Dianelys PRE-OP DIAGNOSIS: Peripheral arterial disease, chronic limb threatening ischemia of right lower extremity, right ischemic foot wounds, hypertension, hyperlipidemia, tobacco abuse POST-OP DIAGNOSIS: same PROCEDURE: 1. Bilateral femoral cutdowns with bilateral iliofemoral endarterectomy with bovine patch angioplasty bilaterally 2. Left to right gcohymr-wy-zvafxqk bypass 3. Right lower extremity angiogram 4. [...] Implant Name Type Inv. Item Serial No. Nurse'S Aides Teacher Lot No. LRB No. Used Action GRAFT CV 60CM 7MM THOR 2 [address] [facility] [address] VLR CLGN STR - [id number] - [id number] Graft GRAFT CV 60CM 7MM THOR [address] [facility] CLGN STR [id number] REPP [id number] Bilateral 1 Implanted PATCH VSC 8X.8CM XENOSURE BVN PRICRD TISS STRL RPL [id number] - [id number] Graft PATCH VSC 8X.8CM XENOSURE BVN PRICRD TISS STRL RPL [id number] [employer] [id number] Left 1 Implanted PATCH VSC 8X.8CM XENOSURE BVN PRICRD TISS STRL RPL [id number] - [id number] Graft PATCH VSC 8X.8CM XENOSURE BVN PRICRD TISS STRL RPL [id number] [employer] [id number] Left 1 Implanted PATCH VSC 8X.8CM XENOSURE BVN PRICRD TISS STRL RPL [id number] - [id number] Graft PATCH VSC 8X.8CM XENOSURE BVN PRICRD TISS STRL RPL [id number] Carolyn [id number] Right 1 Implanted HISTORY: The patient is [...] distally and performed iliofemoral endarterectomy bilaterally using [place] elevator and obtaining good proximal and distal [...] thoracic aorta. We then placed a 6 [place] sheath and performed retrograde iliac angiogram. Demonstrated that there was severe stenosis of the left external iliac artery with the 6 [place] sheath almost entirely occlusive but it did [...] lower extremity angiogram from this left 6 [place] sheath and demonstrated that right common femoral [...] from the original note were not included. [facility] Brief Op Note NAME: Isaura Ruiz : 1955 PROCEDURE DATE: 12/17/2024 SURGEON: Surgeons and Role: * Maldonado Prince MD - Primary ASSISTANTS: Milo Thomas MD, Vascular Surgery Fellow (PGY-7) Lion Almaraz DO MA, Vascular Surgery Fellow (PGY-6) STAFF: Glass Cutting Machine Operator Primary: Carly Gamez RN Glass Cutting Machine Operator Relief: Evonne Guzman RN Scrub Relief: KAREN [...] Implant Name Type Inv. Item Serial No. Nurse'S Aides Teacher Lot No. LRB No. Used Action GRAFT CV 60CM 7MM THOR [address] [facility] [address] VLR CLGN STR - [id number] - [id number] Graft GRAFT CV 60CM 7MM THOR [address] [facility] [address] VLR CLGN STR [id number] REPP [id number] Bilateral 1 Implanted PATCH VSC 8X.8CM XENOSURE BVN PRICRD TISS STRL RPL [id number] - [id number] Graft PATCH VSC 8X.8CM XENOSURE BVN PRICRD TISS STRL RPL [id number] [employer] [id number] Left 1 Implanted PATCH VSC 8X.8CM XENOSURE BVN PRICRD TISS STRL RPL [id number] - [id number] Graft PATCH VSC 8X.8CM XENOSURE BVN PRICRD TISS STRL RPL [id number] [employer] [id number] Left 1 Implanted PATCH VSC 8X.8CM XENOSURE BVN PRICRD TISS STRL RPL [id number] - [id number] Graft PATCH VSC 8X.8CM XENOSURE BVN PRICRD TISS STRL RPL [id number] Carolyn [id number] Right 1 Implanted ESTIMATED BLOOD LOSS: 150 [...] note/ clearance requested documented in this encounter [employer] 12-19-2024 Hospital course Narrative HOSPITAL DISCHARGE SUMMARY Patient ID: Isaura Ruiz Acct: [id number] Patient's PCP: SKYE BOWMAN MD Admit Date: 12/17/2024 Discharge Date: Length of Stay: 2 Days Admitting Physician: Maldonado Prince MD Discharge Physician: Maldonado Prince MD Discharge Diagnoses: Patient Active Problem List Diagnosis Date Noted Critical limb ischemia of both lower extremities ([facility]-HCC) 12/17/2024 Claudication (CMS-HCC) 12/02/2024 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 Patient had bilateral femoral cutdowns with bilateral iliofemoral endarterectomy with a bovine angioplasty, ppks-xd-mdqkn femoral to femoral bypass and right lower [...] 10:20 AM Maldonado Prince MD [facility] Follow-up Information SKYE BOWMAN MD Follow up. Specialty: Family Medicine Contact information: [facility] [phone] Scheduled Appointments Jan 02, 2025 10:20 AM (Arrive by 10:05 AM) POST OPERATION VISIT with Maldonado Prince MD [facility] ([facility]) [address] [facility] [id number] At the time of your visit please be aware of the following COVID-19 information: If you develop a new cough, fever, or shortness of breath, please call before your appointment. Please plan to arrive at least 15 minutes earlier than your appointment time as screening and registration may take longer than anticipated. Please consider the [facility] e[facility]in to pre-register and make your co-payment before your visit. This will reduce your registration time. Please be aware that the [facility] facility you are visiting may require you [...] Frank 12/19/24 1328 documented in this encounter [facility] 12-19-2024 Plan of care note Problem: Pain Goal: Patient goal is pain score less than 4, able to rest, and participant in treatment plan as appropriate Description: INTERVENTIONS: 1. Encourage patient or legal insurance account representative to report early pain and ask [...] per policy 9. Teach patient or legal insurance account representative interventions for comforting Outcome: Progressing Note: [...] at the bedside 7. Instruct patient/ patient insurance account representative about use of safety devices 8. Include patient/ patient insurance account representative in decisions related to safety Outcome: [...] hygiene technique. 7. Identify and instruct patient/patient insurance account representative in use of appropriate isolation precautions for identified infection/symptoms. 8. Provide and discuss with patient/patient insurance account representative on educational MDRO sheet. 9. Encourage and monitor nutritional status daily and consult croze machine operator if indicated. 10. Implement neutropenic guidelines as needed. Outcome: Progressing Note: Evaluation of progress towards goal: pt afebrile-cont to monitor Problem: Knowledge Deficit Goal: Patient/patient insurance account representative demonstrates understanding of disease process, treatment [...] progress towards goal: pt going home today [facility] [employer] [facility] 12-19-2024 Progress note Formatting of t his note might be different from the original. DISCHARGE PLANNING NOTE Case discussed in daily transition rounds and chart reviewed by CN. Barriers to discharge include no medical barriers anticipate DC later today. Discharge Plan remains: Home self care. CN will continue to follow and is available should any further needs arise. - Lorenza Mcdnonell RN 12/19/24 10:04 AM [facility] [employer] [facility] 12-19-2024 Plan of care note Problem: Pain Goal: Patient goal is pain score less than 4, able to rest, and participant in treatment plan as appropriate Description: INTERVENTIONS: 1. Encourage patient or legal insurance account representative to report early pain and ask [...] per policy 9. Teach patient or legal insurance account representative interventions for comforting Outcome: Progressing Note: [...] at the bedside 7. Instruct patient/ patient insurance account representative about use of safety devices 8. Include patient/ patient insurance account representative in decisions related to safety Outcome: [...] hygiene technique. 7. Identify and instruct patient/patient insurance account representative in use of appropriate isolation precautions for identified infection/symptoms. 8. Provide and discuss with patient/patient insurance account representative on educational MDRO sheet. 9. Encourage and monitor nutritional status daily and consult croze machine operator if indicated. 10. Implement neutropenic guidelines as needed. Outcome: Progressing Note: Evaluation of progress towards goal: Vitals sign wnl. No sign of infection noted. Problem: Knowledge Deficit Goal: Patient/patient insurance account representative demonstrates understanding of disease process, treatment plan, medications, and discharge instructions Description: INTERVENTIONS 1. Complete learning assessment and assess knowledge base 2. Provide teaching at level of understanding 3. Provide teaching via preferred learning method(s) Outcome: Progressing Note: Evaluation of progress towards goal: Patient/patient insurance account representative demonstrates understanding of disease process, treatment [...] be free from fall Description: Interventions: 1. [place] to environment 2. Hourly rounds addressing the [...] non-skid footwear 11. Teach patient and patient insurance account representative to maintain environment for safety and [...] (cane, walker) within reach 19. Request patient insurance account representative bring adaptive equipment/mobility aids from home or obtain and provide as needed 20. Consult pharmacy regarding effects of med's affecting mobility, cognition, and alternatives 21. Obtain physician order for PT if risk factors associated with mobility are present 22. Obtain physician order for OT as appropriate 23. Utilize diversional activities 24. Educate patient and patient insurance account representative how to maintain a safe environment during visitation times (notify nurse prior to leaving bedside) 25. Consider appropriateness of medical or non-medical services coordinator 26. Set up voiding schedule as appropriate (every 2 hours) Outcome: Progressing Note: Evaluation of progress towards goal: Area free from hazards, patient call light within reach, will continue to monitor patient for risk of falls. [employer] 12-18-2024 Progress note Formatting of t his note is different from the original. Images from the original note were not included. DISCHARGE PLANNING NOTE Coal Passer met with patient, introduced self, and explained role. Patient educated on safe discharge plan. 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 Consults: Vascular Surgery [...] medication assistance resources. PCP: SKYE BOWMAN MD Pharmacy:[facility] PCP and pharmacy confirmed with patient. CN [...] - Lorenza Mcdonnell RN 12/18/24 11:48 AM [facility] 12-18-2024 Plan of care note Problem: Pain Goal: Patient goal is pain score less than 4, able to rest, and participant in treatment plan as appropriate Description: INTERVENTIONS: 1. Encourage patient or legal insurance account representative to report early pain and ask [...] per policy 9. Teach patient or legal insurance account representative interventions for comforting Outcome: Progressing Note: [...] at the bedside 7. Instruct patient/ patient insurance account representative about use of safety devices 8. Include patient/ patient insurance account representative in decisions related to safety Outcome: [...] hygiene technique. 7. Identify and instruct patient/patient insurance account representative in use of appropriate isolation precautions for identified infection/symptoms. 8. Provide and discuss with patient/patient insurance account representative on educational MDRO sheet. 9. Encourage and monitor nutritional status daily and consult croze machine operator if indicated. 10. Implement neutropenic guidelines as needed. Outcome: Progressing Note: Evaluation of progress towards goal: Patient VSS, afebrile, labs being monitored daily. Problem: Knowledge Deficit Goal: Patient/patient insurance account representative demonstrates understanding of disease process, treatment [...] be free from fall Description: Interventions: 1. [place] to environment 2. Hourly rounds addressing the [...] non-skid footwear 11. Teach patient and patient insurance account representative to maintain environment for safety and [...] (cane, walker) within reach 19. Request patient insurance account representative bring adaptive equipment/mobility aids from home or obtain and provide as needed 20. Consult pharmacy regarding effects of med's affecting mobility, cognition, and alternatives 21. Obtain physician order for PT if risk factors associated with mobility are present 22. Obtain physician order for OT as appropriate 23. Utilize diversional activities 24. Educate patient and patient insurance account representative how to maintain a safe environment during visitation times (notify nurse prior to leaving bedside) 25. Consider appropriateness of medical or non-medical services coordinator 26. Set up voiding schedule as appropriate (every 2 hours) Outcome: Progressing Note: Evaluation of progress towards goal: Patient safety maintained. Hourly rounding, call light within reach. [facility] 12-18-2024 History of Present illness Narrative Images from the original note were not included. [facility] PROGRESS NOTE Subjective: Patient seen [...] bovine patch angioplasty bilaterally, left to right yehrsrq-fb-ibxzusk bypass, right lower extremity angiogram, left retrograde iliac angiogram, drug coated balloon angioplasty of left common and external iliac arteries on 12/17. - Analgesia: Multimodal - Diet: Regular - Antiplatelets: Aspirin, Plavix, Pletal - Anticoagulation: Subcutaneous heparin - Continue to encourage ambulation, activity, and IS use - DVT/VTE prophylaxis: Subcutaneous heparin - continue vascular checks Corry Navarrete MD General Surgery Resident PGY-1 [facility] Cosigned by Iliana Carter [...] planning Dr. Iliana Carter DO, MPH, RPVI [facility] V[facility] Surgery documented in this encounter [facility] 12-18-2024 Plan of care note Problem: Pain Goal: Patient goal is pain score less than 4, able to rest, and participant in treatment plan as appropriate Description: INTERVENTIONS: 1. Encourage patient or legal insurance account representative to report early pain and ask [...] per policy 9. Teach patient or legal insurance account representative interventions for comforting Outcome: Progressing Note: [...] at the bedside 7. Instruct patient/ patient insurance account representative about use of safety devices 8. Include patient/ patient insurance account representative in decisions related to safety Outcome: [...] hygiene technique. 7. Identify and instruct patient/patient insurance account representative in use of appropriate isolation precautions for identified infection/symptoms. 8. Provide and discuss with patient/patient insurance account representative on educational MDRO sheet. 9. Encourage and monitor nutritional status daily and consult croze machine operator if indicated. 10. Implement neutropenic guidelines as needed. Outcome: Progressing Note: Evaluation of progress towards goal: Vitals sign wnl. No sign of infection noted. Problem: Knowledge Deficit Goal: Patient/patient insurance account representative demonstrates understanding of disease process, treatment plan, medications, and discharge instructions Description: INTERVENTIONS 1. Complete learning assessment and assess knowledge base 2. Provide teaching at level of understanding 3. Provide teaching via preferred learning method(s) Outcome: Progressing Note: Evaluation of progress towards goal: Patient/patient insurance account representative demonstrates understanding of disease process, treatment [...] be free from fall Description: Interventions: 1. [place] to environment 2. Hourly rounds addressing the [...] non-skid footwear 11. Teach patient and patient insurance account representative to maintain environment for safety and [...] (cane, walker) within reach 19. Request patient insurance account representative bring adaptive equipment/mobility aids from home or obtain and provide as needed 20. Consult pharmacy regarding effects of med's affecting mobility, cognition, and alternatives 21. Obtain physician order for PT if risk factors associated with mobility are present 22. Obtain physician order for OT as appropriate 23. Utilize diversional activities 24. Educate patient and patient insurance account representative how to maintain a safe environment during visitation times (notify nurse prior to leaving bedside) 25. Consider appropriateness of medical or non-medical services coordinator 26. Set up voiding schedule as appropriate (every 2 hours) Outcome: Progressing Note: Evaluation of progress towards goal: Area free from hazards, patient call light within reach, will continue to monitor patient for risk of falls. [facility] 12-17-2024 Procedure note Images from the original note were not included. [facility] Operative Note DATE OF PROCEDURE: 12/17/2024 PATIENT NAME: Isaura Ruiz SURGEON: Surgeons and Role: * Maldonado Prince MD - Primary ASSISTANTS: Dr. Milo Thomas, Vascular Surgery Fellow STAFF: Glass Cutting Machine Operator Primary: Carly Gamez RN Glass Cutting Machine Operator Relief: Evonne Guzman RN Scrub Relief: KAREN [...] patch angioplasty bilaterally 2. Left to right ecogdfz-hi-hrrylwm bypass 3. Right lower extremity angiogram 4. [...] Implant Name Type Inv. Item Serial No. Nurse'S Aides Teacher Lot No. LRB No. Used Action GRAFT CV 60CM 7MM THOR 2 [address] [facility] [address] 2 VLR CLGN STR - [id number] - [id number] Graft GRAFT CV 60CM 7MM THOR [address] [facility] [address] 2 VLR CLGN STR [id number] REPP [id number] Bilateral 1 Implanted PATCH VSC 8X.8CM XENOSURE BVN PRICRD TISS STRL RPL [id number] - [id number] Graft PATCH VSC 8X.8CM XENOSURE BVN PRICRD TISS STRL RPL [id number] [employer] [id number] Left 1 Implanted PATCH VSC 8X.8CM XENOSURE BVN PRICRD TISS STRL RPL [id number] - [id number] Graft PATCH VSC 8X.8CM XENOSURE BVN PRICRD TISS STRL RPL [id number] [employer] [id number] Left 1 Implanted PATCH VSC 8X.8CM XENOSURE BVN PRICRD TISS STRL RPL [id number] - [id number] Graft PATCH VSC 8X.8CM XENOSURE BVN PRICRD TISS STRL RPL [id number] [employer] [id number] Right 1 Implanted HISTORY: The patient is [...] distally and performed iliofemoral endarterectomy bilaterally using [place] elevator and obtaining good proximal and distal [...] thoracic aorta. We then placed a 6 [place] sheath and performed retrograde iliac angiogram. 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 Maldonado Prince MD, PRATIMA Vascular Surgery [facility] Work Phone: 12-17-2024 Procedure note Images from the original note were not included. [facility] Brief Op Note NAME: Isaura Ruiz : 1955 PROCEDURE DATE: 12/17/2024 SURGEON: Surgeons and Role: * Maldonado Prince MD - Primary ASSISTANTS: Milo Thomas MD, Vascular Surgery Fellow (PGY-7) Lion Almaraz DO MA, Vascular Surgery Fellow (PGY-6) STAFF: Glass Cutting Machine Operator Primary: Carly Gamez RN Glass Cutting Machine Operator Relief: Evonne Guzman RN Scrub Relief: KAREN [...] ischemia of right lower extremity with gangrene ([facility]) [I70.261] * Claudication ([facility]) [I73.9] COMPLICATIONS: None ADDITIONS (Drains, Specimens, Implants): Drains: Urinary Catheter 12/17/24 Single lumen (Active) Specimens: * No specimens in log * Implants: Implant Name Type Inv. Item Serial No. Nurse'S Aides Teacher Lot No. LRB No. Used Action GRAFT CV 60CM 7MM THOR [address] [facility] [address] 2 VLR CLGN STR - [id number] - [id number] Graft GRAFT CV 60CM 7MM THOR [address] [facility] [address] 2 VLR CLGN STR [id number] REPP [id number] Bilateral 1 Implanted PATCH VSC 8X.8CM XENOSURE BVN PRICRD TISS STRL RPL [id number] - [id number] Graft PATCH VSC 8X.8CM XENOSURE BVN PRICRD TISS STRL RPL [id number] [employer] [id number] Left 1 Implanted PATCH VSC 8X.8CM XENOSURE BVN PRICRD TISS STRL RPL [id number] - [id number] Graft PATCH VSC 8X.8CM XENOSURE BVN PRICRD TISS STRL RPL [id number] [employer] [id number] Left 1 Implanted PATCH VSC 8X.8CM XENOSURE BVN PRICRD TISS STRL RPL [id number] - [id number] Graft PATCH VSC 8X.8CM XENOSURE BVN PRICRD TISS STRL RPL [id number] [employer] [id number] Right 1 Implanted ESTIMATED BLOOD LOSS: 150 mL TOTAL IVF: Please see anesthesia documentation FLUORO TIME: 2.3 min DOSE: 71.6 mGy TOTAL CONTRAST: 39 ml CONDITION: stable WOUND CLASS: clean FINDINGS: PULSE EXAM: monophasic right posterior tibial artery on Doppler See dictated procedure report for full details. Lion Almaraz DO MA, Vascular Surgery Fellow (PGY-6) [facility] [employer] Work Phone: 12-17-2024 Attending History and physical note HISTORY AND PHYSICAL INTERVAL NOTE: Isaura Ruiz 1955 [id number] H&P reviewed. The patient was examined and [...] ischemia of right lower extremity with gangrene ([facility]) Claudication ([facility]) - [facility] [place] Aaron MD, PRATIMA, RPVI, FSVS, [facility] This note was created with the assistance of a speech recognition program. While intending to generate a timely document that accurately reflects the content of the visit, no guarantee can be provided that every grammatical or spelling mistake has been or will be identified or corrected. Thank you for your understanding. [facility] 12-17-2024 History and physical note HISTORY AND PHYSICAL INTERVAL NOTE: Isaura Ruiz 1955 [id number] H&P reviewed. The patient was examined and [...] ischemia of right lower extremity with gangrene ([facility]) - Primary Current Assessment & Plan I discussed with her the findings of the PVR and the CTA. She will need bilateral iliac stenting right lower extremity angiogram and intervention possible femorofemoral bypass. She will need cardiac risk stratification. Isaura was seen today for claudication. 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 documented in this encounter [facility] 12-16-2024 Nurse Note Anesthesia review: Angioplasty/Fem Bypass: TTH: GA. Hx of HTN: GERD. no c/p or SOb. EKG: STRESS 12/12/24. Saw cardiology 12/02, unable to get office notes Reviewed and accepted by Dr Monreal with no further orders [facility] 12-13-2024 Nurse Note Cardiology note/ clearance requested [facility] 12-12-2024 History of Present illness Narrative PRE-OPERATIVE HISTORY AND PHYSICAL Exam [...] on 11/28/24. She had testing completed at [facility] that revealed severe claudication with probable iliac [...] History: Procedure Laterality Date BREAST LUMPECTOMY Left 1989 CHOLECYSTECTOMY 1991 TUBAL LIGATION 1985 Family History [...] Brown 12/12/24 1748 documented in this encounter [facility] 12-12-2024 Instructions Candice Dowell RN - 12/12/2024 12:15 PM EST Your surgery/procedure is scheduled at [facility] on 12/17/2024 at 1030 am Arrival Time 830 am [facility] Address: [address] [place] [address] Park in P1 Parking lot located on [facility]. Report to the Entrance B. Check in at the information desk the surgery. The waiting room located on the second floor. If you have any questions prior to surgery, please call Pre-Admission Clinic at [phone] between 7:30 am and 4:30 pm Monday through Monday. If you have questions the morning of surgery, please call the Pre-op Department at [phone]. Notify your SURGEON if you develop any [...] piercings ,hair extensions that contain metal, nail korean, make-up, and contact lens. You may brush [...] RIGHTS AND RESPONSIBILITIES As a patient at [facility], you have the right to: Receive medical care and be informed of who is taking care of you Be treated with dignity and respect Have a family member/insurance account representative of choice and your physician notified of your admission Receive information and actively participate in decisions about your care and treatment Refuse care, treatment and services Decide who may provide your support and speak for you Access restoration and spiritual services Participate in ethical issues [...] of hospital charges and payment methods Patient/patient insurance account representative responsibilities are to: Provide information about [...] in clean clothes. documented in this encounter [facility] [employer] 12-02-2024 Note Cardiology Clinic No te Chief [...] issues. She denies any previous history of NE, CHF, CAD. ROS 10 point ROS is [...] or concerns. 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 She will need bilateral iliac stenting right lower extremity angiogram and intervention possible femorofemoral bypass. She will need cardiac risk stratification. 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 She will need bilateral iliac stenting right lower extremity angiogram and intervention possible femorofemoral bypass. She will need cardiac risk stratification. [facility] 11-28-2024 History of Present illness Narrative Images from the original note [...] ischemia of right lower extremity with gangrene ([facility]) - Primary Current Assessment & Plan I discussed with her the findings of the PVR and the CTA. She will need bilateral iliac stenting right lower extremity angiogram and intervention possible femorofemoral bypass. She will need cardiac risk stratification. Isaura was seen today for claudication. 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 [place] Maldonado Prince MD, PRATIMA, RPVI, FSVS, FACS [facility] This note was created with the assistance of a speech recognition program. While intending to generate a timely document that accurately reflects the content of the visit, no guarantee can be provided that every grammatical or spelling mistake has been or will be identified or corrected. Thank you for your understanding. documented in this encounter [facility] 11-28-2024 Instructions Maldonado Prince MD - 11/28/2024 10:30 AM EST Are You Ready To Kick The Habit? Free Tobacco Cessation Resources [facility] Services [facility] provide all employees with free tobacco cessation services that include: Counseling to understand nicotine addiction Education about medications that can help you successfully quit Assistance with developing a plan to quit Call to set up an individual appointment or find out when group classes will be held: [facility]: [phone] [facility]: [phone] [facility]: [phone] [facility]: [phone] Quit Smoking Action Plan and Resources [facility] offers an eight-week, online smoking cessation plan to all [facility] employees, regardless of whether [place] is your medical insurance provider. Go to www.Zokem.org/employeewell ness and click the Health Risk Assessment and Resources link to get started. In the [employer] menu, click Action Plans instead of Health Risk Assessment to access the Quit Smoking Action Plan. Additional smoking cessation resources are also available to all [facility] employees on the Dpbui6Oqzqku web page at www.BookingPal/quit smoking. [place] Tobacco Cessation Program If [place] is your medical insurance provider, there are more free resources available to you, including: No copays or deductibles on local tobacco cessation counseling services to help you quit Prescription assistance for tobacco cessation medications to help you quit For details about the tobacco cessation program available to [employer] members, go to www.BookingPal (Search: Tobacco Cessation Program). [place] Tobacco Quit Line 6-049-OWCI-NOW ( ) is a toll-free, telephonic service that helps [place] residents quit smoking and using tobacco. It is staffed by experts who tailor a quit plan for you and provide you with advice. [place] Tobacco Quit Line 2-620-JDRP-NOW ( ) is a toll-free, telephonic service that helps [place] residents quit smoking and using tobacco. It is staffed by experts who tailor a quit plan for you and provide you with advice. Two weeks of nicotine replacement therapy may be provided at no charge, if needed. Additional Resources These national organizations also offer free information and resources to help you quit tobacco: [place] Cancer [employer]--www.cancer.org/healthy/ stayawayfromtobacco [place] Heart Association--www.heart.org (Search: Quit Smoking) Centers for Disease Control and Prevention--www.cdc.gov/tobacco [place] Lung Association--www.lungusa.org documented in this encounter [facility] 09-07-2021 Evaluation note Encounter Date Diagnosis [...] Patient care instructions given in writting by [facility] Care At Home document Appear Here Other Evaluation note* Diagnosis Onset Date Resolution Status Contact dermatitis noneactiv e [facility] Work Phone: Evaluation note* Diagnosis PVD (peripheral vascular disease) ([facility]) Unspecified peripheral vascular disease Claudication ([facility]) Unspecified peripheral vascular disease Bilateral carotid bruits [facility]* Diagnosis 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 ([facility])- Primary Claudication ([facility]) Unspecified peripheral vascular disease [facility] Diagnosis 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)- Primary Claudication (CMS-HCC) Unspecified peripheral vascular disease Claudication (CMS-HCC)- Primary Unspecified peripheral vascular disease 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) Pre-op testing- Primary Unspecified pre-operative examination 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) Claudication (CMS-HCC) Unspecified peripheral vascular disease 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)- Primary [facility]* Diagnosis Onset Date Resolution Status Admit Date Polyneuropathy acute June 25, 2025 11:29am [facility] Work Phone: History general Narrative - Reported* Type Description Date Medical History thalassemia minor Appear Here Other Hospital Discharge instructionsNot on filedocumented in this [facility]Pro[facility] SystemInstructionsNot on filedocumented in this encounterProWhite Hospital SystemInstructionsNot on filedocumented in this encounterProWhite Hospital SystemInstructionsNot on filedocumented in this encounterProWhite Hospital SystemReason for referral (narrative)* Misc (Routine) - Authorized Specialty Diagnoses / Procedures Referred By Contac t Referred To Contact Procedures Wound care (specify) Channing Frazier APRN-CNP [address] [place] [address] Phone: tel: fax: Referral ID Status Reason Start Date Expiration Date V isits Requested Visits Authorized [id number] Authorized 12/19/2024 12/19/2025 1 1 * Misc (Routine) - Authorized Specialty Diagnoses / Procedures Referred By Contac t Referred To Contact Procedures Hygiene Channing Frazier APRN-CNP [address] [place] [address] Phone: tel: fax: Referral ID Status Reason Start Date Expiration Date V isits Requested Visits Authorized [id number] Authorized 12/19/2024 12/19/2025 1 1 * Misc (Routine) - Authorized Specialty Diagnoses / Procedures Referred By Contac t Referred To Contact Procedures Adult diet Channing Frazier APRN-CNP [address] [place] [address] Phone: tel: fax: Referral ID Status Reason Start Date Expiration Date V isits Requested Visits Authorized [id number] Authorized 12/19/2024 12/19/2025 1 1 [facility]No reason for referral [facility] Work Phone: Reason for visit Narrative* Auth/Cert Specialty Diagnoses / Procedures Referred By Contac t Referred To Contact Diagnoses 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) Claudication (CMS-HCC) 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 ([facility]) [I70.261] Claudication ([facility]) [I73.9] Procedures AR REVASCULARIZATION ILIAC ARTERY ANGIOP 1ST VSL ANGIOPLASTY ILIAC BYPASS ARTERY FEMORAL FEMORAL Maldnoado Prince MD [address], [address] [address] Phone: tel: fax: Referral ID Status Reason Start Date Expiration Date Visits Re quested Visits Authorized [id number] 1 1 [facility] Summary Purpose Family History No Family History Records FoundNo Family History Records FoundNo Family History Records FoundNo Family History Records FoundNo Family History Records FoundNo Family History Records Found Advance Directives Advance Directive Response Recorded Date/ Time Advance Directives No June 1:13pm Date Activated Date Inactivated Comments 12/17/2024 2:52 PM Date Activated Date Inactivated Comments 12/17/2024 2:52 PM 12/19/2024 5:59 PM Advance Directive Response Recorded Date/ Time Advance Directives No April 16 1:28pm Chief Complaint and Reason for Visit Chief Complaint swelling/itching carrie und eyes Reason for Visit Contact dermatitis Chief Complaint Admit Date EMG BLE PER DR. SKYE BOWMAN June 252024 11:29am Reason for Visit Admit Date Polyneuropathy June 25, 2025 11:29am Additional Source Comments INFORMATION SOURCE (unrecogn ized section and content) DATE CREATED AUTHOR 03/30/2018 [facility] DATE CREATED AUTHOR AUTHOR'S ORGANIZ ATION [facility]/18/2022 [facility] [facility] DATE CREATED AUTHOR AUTHOR'S ORGANIZ ATION 11/24/2024 [facility] DATE CREATED AUTHOR AUTHOR'S ORGANIZ ATION 12/29/2024 [facility] DATE CREATED AUTHOR AUTHOR'S ORGANIZ ATION 12/29/2024 [facility] DATE CREATED AUTHOR AUTHOR'S ORGANIZ ATION 03/08/2025 [facility] REASON FOR VISIT (unrecogniz ed section and content) Reason Comments Med Refill Reason Comments Claudication Previous Dr. Shreya beckwith (07/2022) Specialty Diagnoses / Procedures Referred By Willis canseco Referred To Contact Vascular Surgery Diagnoses Claudication ([facility] [place]) Skye Bowman MD [address] [place] [address] Phone: tel: fax: [facility] [address] [place] [address] Phone: tel: fax: Referral ID Status Reason Start Date Expiration Date Visits Requested Visits Authorized [id number] Pending Review Specialty Services Required 10/21/2024 10/21/2025 1 1 Reason Comments bilat iliac stents & fem-fem bypass 12-17 Reason Comments Follow up to go over vasculsr tesing Care Teams (unrecognized sec tion and content) Team Status: Active Member Role Status Dates Skye Bowman MD Primary Care Provider Active Team Status: Inactive Member Role Status Dates Skye Bowman MD Primary Care Provider Active Start: July 08, 2024 End: July 08, 2024 Tsering Pineda APRN Attending Provider Active S tart: July 08, 2024 End: July 08, 2024 Regional Economist Relationship Specialty Start Date End Date Skye Bowman MD [address] [id number] PCP - General Family Medicine 06/30/22 Regional Economist Relationship Specialty Start Date End Date Skye Bowman MD PCP - General Family Medicine 06/30/22 Regional Economist Relationship Specialty Start Date End Date Skye Bowman MD PCP - General Family Medicine 06/30/22 Regional Economist Relationship Specialty Start Date End Date Skye Bowman MD PCP - General Family Medicine 06/30/22 Regional Economist Relationship Specialty Start Date End Date Skye Bowman MD PCP - General Family Medicine 06/30/22 Regional Economist Relationship Specialty Start Date End Date Skye Bowman MD PCP - General Family Medicine 06/30/22 Team Status: Inactive Member Role Status Dates Skye Bowman MD Primary Care Provider Active Start: June 25, 2025 End: June 25, 2025 John Izquierdo DO Attending Provider Active Start: June 25, 2025 End: June 25, 2025 Goals (unrecognized section and content) Goals may be documented in a n alternate section Scheduled Active and Recently Administ ered Medications (unrecognized section and content) Medication Order 12/17/2024 12/18/2024 12/19/2024 acetaminophen (TYLENOL EXTRA STRENGTH) tablet 1,000 mg 1,000 mg, oral, 4 times daily, First dose on Mon12/17/24 at 1900, For 72 hours 2147 (Not Given - Provider: Btety Horner RN - Reason: Patient/family refused) 0051 [...] (Given - Provider: Tavia Zuniga, DEVAN)2200 (Due) cilostazoL (PLETAL) tablet 100 mg 100 [...] - Reason: Patient/family refused)2145 (Given - Provider: Btety Horner RN) 0558 (Given - Provider: Betty [...] RN)0820 (Stop Bag - Provider: Tavia Zuniga, RN) magnesium sulfate IVPB 4000 mg/100 mL [...] Horner RN)0820 (See Alternative - Provider: Tavia Zuniga, DEVAN) midazolam (PF) (VERSED) injection 2 mg (CANCELED) [...] 0142 (Given - Provid er: Betty Horner RN)06 (See Alternative - Provider: Betty Horner RN) oxyCODONE (ROXICODONE) immediate release tablet 5 mg(Linked Group 5) 5 mg, oral, Every 4 hours PRN, moderate pain - pain scale 4-6, Starting on Mon12/17/24 at 1455, For 3 days, Look-alike/sound-alike medication - verify indication for use. Immediate release. 0142 (See Alternativ e - Provider: Betty Horner RN)06 (Given - Provider: Betty Horner RN) potassium [...] BE BASED ON THE PRIMARY CLINICAL RECORDS. [facility] [employer] [facility]. provides no warranty or guarantee of the accuracy or completeness of information in this document.
--- NOTE | 2025-07-23 13:59 | MR_ITS ---
The [address] [address] Patient Name: BHAVYA COCHRAN MRN: [id number] date: 1955 Sex: F Assigned Patient Location: MRI Current Patient Location: Accession/Order Number: [id number] Exam Date: 07/23/2025 14:00 Report Date: 07/24/2025 09:09 At the request of: SKYE KIDD MD Procedure: MR lumbar spine wo con MRI lumbar spine performed without contrast INDICATION: Lumbar radiculopathy COMPARISON: 10/14/2024 FINDINGS: Mild dextrocurvature. Lumbar vertebral heights and alignment maintained. Diffuse yellow marrow conversion. Lvha-ks-lowlkhuu anterior to space narrowing L5-S1. Otherwise minimal disc desiccation L2-L5. Conus medullaris terminates normally at superior plate of L2. T12-L2: Mild facet arthropathy. No significant disease central canal or neural foramen identified. L2-3: Broad-based disc bulge with uxfe-nk-qxoldymh facet arthropathy. Minimal canal and neural foraminal narrowing. L3-4: Broad-based disc bulge with moderate facet arthropathy. Mild central canal narrowing. Mild right foraminal narrowing. Moderate left neural from narrowing. There is moderate subarticular recess narrowing L4-5: Circumferential disc bulge with right subarticular zone disc extrusion which extends cranially 9 mm. There is moderate to severe central canal narrowing and left subarticular recess narrowing. There is severe right subarticular zone narrowing. Moderate bilateral neural foraminal narrowing. Correlate with bilateral L5 radiculopathy right greater than left. L5-S1: Circumferential disc bulge asymmetric towards the right extending to the subarticular and foraminal zone. There is moderate effacement subarticular zone contacting and displacing the right S1 nerve root. Moderate severe right neural foraminal narrowing. Moderate left neural foraminal narrowing. Mild central canal stenosis. MR/MR lumbar spine wo con IMPRESSION: Progression of the disc extrusion L4-5 and the canal narrowing at L4-5. Please correlate with right greater than left L5 radiculopathy. Right subarticular zone effacement L5-S1, correlate with possible right S1 radiculopathy. Please note that the disc at L5-S1 does extend into foramina zones and possibly contacts the exiting right L5 nerve root at this level as well. Impression dictated by: Prashanth Kunz M.D. 07/24/2025 9:09 AM Dictation Location: [place] [address] Electronically authenticated by: [id number] Y Date: 07/24/2025 09:09
--- NOTE | 2025-07-23 14:11 | XR_ITS ---
The [address] [address] Patient Name: BHAVYA COCHRAN MRN: [id number] date: 1955 Sex: F Assigned Patient Location: MRI Current Patient Location: Accession/Order Number: [id number] Exam Date: 07/23/2025 14:40 Report Date: 07/24/2025 00:21 At the request of: SKYE KIDD MD Procedure: XR hip BI w PEL 1V XR hip BI w PEL 1V 07/23/2025 2:45 PM SIGNS AND SYMPTOMS: ^Bilateral Hip Pain PROTOCOL: Frontal radiograph the pelvis with frontal and frog-leg views of the hips COMPARISON: 08/31/2024 FINDINGS: The joint spaces of the hips are preserved. Mild degenerative changes are noted in the lower lumbar spine and sacroiliac joints. No fracture or dislocation. XR/XR hip BI w PEL 1V IMPRESSION: No acute bony injury. The joint spaces of the hips are grossly preserved. Impression dictated by: Mathew Miller M.D. 07/24/2025 12:21 AM Dictation Location: [place] [address] Electronically authenticated by: [id number] Y Date: 07/24/2025 00:21
[2025-07-23 15:03] LABS: Hematocrit 28.5 % (36.0-48.0); Hemoglobin 9.0 g/dL (12.0-16.0); Immature Granulocytes Abs Auto 0.02 10^3/uL (0.00-0.03); Immature Granulocytes Pct Auto 0.4 % (0.0-0.5); Lymphocytes Absolute Auto 1.9 10^3/uL (1.2-3.8); Mean Corpuscular HGB Conc 31.6 g/dL (29.9-35.2); Mean Corpuscular Hemoglobin 19.6 pg (26.7-34.0); Mean Corpuscular Volume 62.1 fL (81.0-99.0); Platelet Count 396 10^3/uL (150-450); White Blood Count 5.4 10^3/uL (4.0-11.0)
[2025-07-23 15:12] LABS: Alanine Aminotransferase 29 U/L (14-59); Albumin Globulin Ratio 1.0; Albumin Level 3.9 g/dL (3.4-5.0); Alkaline Phosphatase 115 U/L (46-116); Anion Gap 11.9; Aspartate Amino Transferase 19 U/L (15-37); Blood Urea Nitrogen 18.0 mg/dL (7.0-18.0); Calcium 8.7 mg/dL (8.5-10.1); Carbon Dioxide 27.2 mmol/L (21.0-32.0); Chloride 106 mmol/L (98-107); Cholesterol 130 mg/dL (<=200); Estimated GFR (African America >60 (>=60 mL/min/1.73m^2); Estimated GFR (Non-African Ame 54 (>=60 mL/min/1.73m^2); Free T3 2.62 pg/mL (2.18-3.98); Globulin 4.0 g/dL; Glucose 104 mg/dL (74-106); HDL Cholesterol 53 mg/dL (40-60); Potassium 4.1 mmol/L (3.5-5.1); Sodium 141 mmol/L (136-145); Thyroid Stimulating Hormone 1.578 uIU/mL (0.358-3.740); Total Protein 7.9 g/dL (6.4-8.2); Triglycerides 62 mg/dL (<=150); VLDL CHOLESTEROL 12.4 mg/dL
[2025-07-23 15:33] LABS: Red Blood Count 4.59 10^6/uL (4.20-5.40)
== END 2025-07-23 13:16 | disposition home or self-care (01) ==
PROVIDERS: PCP Family Medicine; Visit Provider Family Medicine
DX: M54.16 Radiculopathy, lumbar region (principal); R53.83 Other fatigue; R73.09 Other abnormal glucose; Z12.12 Encounter for screening for malignant neoplasm of rectum; M25.551 Pain in right hip; M25.552 Pain in left hip; M51.26 Other intervertebral disc displacement, lumbar region; E78.5 Hyperlipidemia, unspecified
CPT/HCPCS: 36415; 72148; 73523; 80053; 80061; 83036; 84436; 84443; 84481; 85025